=== PATIENT | female | born 1925 | race Caucasian/White ===

== ENCOUNTER 2016-10-06 16:16 | Inpatient (IN) | payer OTHER, BC ==
[~2016-10-06] VITALS: Ht 165.1 cm; Wt 70.0 kg
[~2016-10-06 16:16] MED LIST: AMLO-110 PO; ASPEC81 PO; CRS20 PO; CZR50 PO; GLIM4TAB2 PO; METO50TA7 PO; MULTCHW4 PO; SITA100T3 PO; [UNRECOGNIZED DRUG - OTHER] PO
[2016-10-06] MEDS ORDERED: GLIM4TAB PO (16:36)
[2016-10-06] MEDS ORDERED: ANAS1TAB19 PO (16:36)
[2016-10-06] MEDS ORDERED: ATOR-24 PO (16:36)
[2016-10-06] MEDS ORDERED: AMLO-110 PO (16:36)
[2016-10-06] MEDS ORDERED: AMOX500C3 PO (16:36)
[2016-10-06] MEDS ORDERED: LOSA1TAB38 PO (16:36)
[2016-10-06] MEDS ORDERED: AZITTAB PO (16:36)
[2016-10-06] MEDS ORDERED: FURO-85 PO (16:36)
[2016-10-06] MEDS ORDERED: SODIUM CHLORIDE 0.9% 1000ML 1,000 ML IV STA (16:38)
[2016-10-06] MEDS ORDERED: SODIUM CHLORIDE 0.9% 1000ML 1,000 ML IV ONE (16:38)
[2016-10-06] MEDS ORDERED: CALC8.5C PO (16:38)
[2016-10-06] MEDS ORDERED: ASPI81TA28 PO (16:38)
--- NOTE | 2016-10-06 16:47 | EMERGENCY ROOM VISIT NOTE ---
History Report prepared by Elijah: Dayana Fitzgerald Under the Supervision of: Dr. Tyler Robertson M.D. First contact with patient: 16:28 Chief Complaint: HYPERGLYCEMIA Stated Complaint: DEHYDRATION-ELEVATED BLOOD SUGAR REFERRED DR PATEL History of Present Illness The patient is an 89 year old female who presents to the Emergency Room with complaints of hyperglycemia. She is accompanied by her ngfteryk-el-pbx. The patient was referred here to the ED by her primary care physician, Dr. Dominguez, for elevated blood sugar. She had seen him earlier today for her fever, and her BSG was found to be 500, so she was advised to come right over. She is a non- insulin dependent diabetic, and states she takes daily Januvia and Metformin. She denies missing any doses recently. The patient had a fever of 100.5 four days ago, and it was 99.5 when checked at home earlier today. She has been coughing, so she was started on a Z-pack by a local urgent care clinic, and states the cough seems to be improving. She also complains of abdominal pain and diarrhea, but denies any chest pain, shortness of breath, numbness in her extremities or difficulty urinating. She does admit to some increased weakness in her legs, but notes this has become more and more regular for her. Her gvfxzgke-kf-xko denies any previous cardiac history, but notes the patient has a history of hypertension. 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 A total of 10 systems reviewed and were otherwise negative. Past Medical & Surgical Medical Problems: (1) GERMAINE (acute kidney injury) (2) Breast cancer (3) Cataract (4) CKD (chronic kidney disease), stage III (5) DM type 2 (diabetes mellitus, type 2) (6) Dyslipidemia (7) History of bladder cancer (8) History of melanoma (9) Hyperglycemia (10) Hypertension (11) S/p excision of bladder tumor Surgical Problems: (1) H/O cystoscopy (2) H/O hernia repair (3) H/O lymph node biopsy (4) H/O partial mastectomy (5) S/P lumbar laminectomy (6) S/P BROOKLYNN-BSO (7) Status post Mohs surgery Old medical records were reviewed. Nurse's notes were reviewed and I agree with. Social History Smoking Status: Never Smoker Smokeless Tobacco Use: No Alcohol Use: none Drug Use: none Marital Status: Housing Status: lives alone Occupation Status: retired Current/Historical Medications Scheduled Amlodipine (Norvasc), 5 MG PO DAILY Amoxicillin (Amoxil), 500 MG PO UD Aspirin (Aspirin Ec), 81 MG PO DAILY Atorvastatin (Lipitor), 40 MG PO HS Azithromycin (Zithromax Z-Horacio), 1 PKT PO UD Calcium W/ Vitamins D & K (Viactiv), TAB PO DAILY Furosemide (Lasix), 20 MG PO DAILY Glimepiride (Amaryl), 4 MG PO DAILY Losartan Potassium (Cozaar), 100 MG PO HS Metoprolol Succ (Toprol Xl) (Toprol-Xl), 100 MG PO DAILY Sitagliptin Phosphate (Januvia), 100 MG PO DAILY [Monavie liquid], 2 OZ PO DAILY Allergies Coded Allergies: Pioglitazone (Unverified Allergy, Intermediate, HIVES, 05/27/10) Metformin (Verified Adverse Reaction, Intermediate, DIARRHEA, 11/22/09) Physical Exam Vital Signs Date Time Temp Pulse Resp B/P Pulse Ox O2 Delivery O2 Flow Rate FiO2 10/06/16 18:45 60 18 181/76 95 Room Air 10/06/16 17:46 64 10/06/16 17:27 82 18 188/75 95 Room Air 10/06/16 16:19 36.7 59 18 118/70 95 Room Air Physical Exam General: Uzj-tej-voogpkfbw older female, appears younger than stated age, in no acute distress. Well developed, well nourished, breathing comfortably on room air. Normal speech HEENT: Normal cephalic atraumatic. Pupils are equal round and reactive to light. Extraocular movements are intact. Oropharynx is pink with moist mucous membranes. No swelling of the mouth lips or tongue. Neck: Supple with a midline trachea. No meningeal signs or stiffness, no JVD or bruits. No Stridor. Chest: Clear to auscultation bilaterally. No wheezes or rhonchi. No increased work of breathing. Heart: regular rate and rhythm. Abdomen: Soft nontender, nondistended without rebound guarding or rigidity. Extremities: No cyanosis clubbing or edema. No calf tenderness or assymetry Spine/Back. Non tender to palpation. No CVA tenderness Skin: Good turgor without rashes. Neurologic exam: Cranial nerves two through 12 are intact. Motor and sensation are intact and symmetrical throughout. Medical Decision & Procedures ER Provider Diagnostic Interpretation: This X-Ray was reviewed and interpreted by myself and the radiologist. CHEST ONE VIEW PORTABLE IMPRESSION: Technically limited study with incomplete visualization left lung base. The upper lung zones are clear. Electronically signed by: Satinder Strauss M.D. 10/06/2016 4:57 PM This X-Ray showed no acute infiltrate, failure or pneumothorax. There is noted cardiomegaly, per my read. This CT scan was reviewed and interpreted by the radiologist and reviewed by myself. CT ABDOMEN & PELVIS: Unremarkable appendix. Colonic diverticula without diverticulitis. Small hiatal hernia. 11 mm low attenuation lesion in the pancreatic tail area. Hysterectomy Pelvic prolapse. Surgical and degenerative changes in the spine. Step offs also present. Minimal bronchiectasis and peribronchial thickening Cardiomegaly. Cavum deformity of the chest wall. Radiologist: Mariana Paz M.D. Laboratory Results 10/06/16 17:20 Red Blood Count 4.02, Mean Corpuscular Volume 90.0, Mean Corpuscular Hemoglobin 32.3, Mean Corpuscular Hemoglobin Concent 35.9, Mean Platelet Volume 11.4, Neutrophils (%) (Auto) 77.6, Lymphocytes (%) (Auto) 13.0, Monocytes (%) (Auto) 9.0, Eosinophils (%) (Auto) 0.1, Basophils (%) (Auto) 0.1, Neutrophils # (Auto) 6.56, Lymphocytes # (Auto) 1.10, Monocytes # (Auto) 0.76, Eosinophils # (Auto) 0.01, Basophils # (Auto) 0.01 10/06/16 17:20 Test 10/06/16 17:09 10/06/16 17:20 10/06/16 17:40 Bedside Lactic Acid Venous 1.47 mmol/L (0.90-1.70) White Blood Count 8.46 K/uL (4.8-10.8) Red Blood Count 4.02 M/uL (4.2-5.4) Hemoglobin 13.0 g/dL (12.0-16.0) Hematocrit 36.2 % (37-47) Mean Corpuscular Volume 90.0 fL (80-100) Mean Corpuscular Hemoglobin 32.3 pg (25-34) Mean Corpuscular Hemoglobin Concent 35.9 g/dl (32-36) Platelet Count 162 K/uL (130-400) Mean Platelet Volume 11.4 fL (7.4-10.4) Neutrophils (%) (Auto) 77.6 % Lymphocytes (%) (Auto) 13.0 % Monocytes (%) (Auto) 9.0 % Eosinophils (%) (Auto) 0.1 % Basophils (%) (Auto) 0.1 % Neutrophils # (Auto) 6.56 K/uL (1.4-6.5) Lymphocytes # (Auto) 1.10 K/uL (1.2-3.4) Monocytes # (Auto) 0.76 K/uL (0.11-0.59) Eosinophils # (Auto) 0.01 K/uL (0-0.5) Basophils # (Auto) 0.01 K/uL (0-0.2) RDW Standard Deviation 38.2 fL (36.4-46.3) RDW Coefficient of Variation 11.7 % (11.5-14.5) Immature Granulocyte % (Auto) 0.2 % Immature Granulocyte # (Auto) 0.02 K/uL (0.00-0.02) Activated Partial Thromboplast Time 25.7 SECONDS (21.0-31.0) Partial Thromboplastin Ratio 1.0 Anion Gap 12.0 mmol/L (3-11) Est Creatinine Clear Calc Drug Dose 20.6 ml/min Estimated GFR () 30.7 Estimated GFR (Non- 26.5 BUN/Creatinine Ratio 18.8 (10-20) Calcium Level 8.9 mg/dl (8.5-10.1) Total Bilirubin 0.5 mg/dl (0.2-1) Direct Bilirubin 0.1 mg/dl (0-0.2) Aspartate Amino Transf (AST/SGOT) 104 U/L (15-37) Alanine Aminotransferase (ALT/SGPT) 45 U/L (12-78) Alkaline Phosphatase 93 U/L (45-117) Total Protein 7.0 gm/dl (6.4-8.2) Albumin 3.4 gm/dl (3.4-5.0) Lipase 86 U/L (73-393) Beta-Hydroxybutyric Acid 8.22 mg/dL (0.2-2.81) Urine Color YELLOW Urine Appearance CLEAR (CLEAR) Urine pH 5.0 (4.5-7.5) Urine Specific Fl[place] 1.018 (1.000-1.030) Urine Protein 2+ (NEG) Urine Glucose (UA) 3+ (NEG) Urine Ketones NEG (NEG) Urine Occult Blood 3+ (NEG) Urine Nitrite NEG (NEG) Urine Bilirubin NEG (NEG) Urine Urobilinogen NEG (NEG) Urine Leukocyte Esterase NEG (NEG) Urine WBC (Auto) 1-5 /hpf (0-5) Urine RBC (Auto) 0-4 /hpf (0-4) Urine Hyaline Casts (Auto) 1-5 /lpf (0-5) Urine Epithelial Cells (Auto) >30 /lpf (0-5) Urine Bacteria (Auto) NEG (NEG) Urine Renal Epithelial Cells 5-10 /lpf (0-5) Laboratory studies as stated above per my review. Medications Administered Medications (Trade) Dose Ordered Sig/Mustapha Route Start Time Stop Time Status Last Admin Dose Admin Sodium Chloride 1,000 ml @ 999 mls/hr Q1H1M STAT IV 10/06/16 16:38 10/06/16 17:38 DC 10/06/16 17:38 999 MLS/HR Sodium Chloride (Nss 1000ml) 1,000 ml @ 150 mls/hr Q6H40M ONCE IV 10/06/16 16:38 10/06/16 20:55 DC 10/06/16 17:39 150 MLS/HR ECG Indication: other (hyperglycemia) Rate (beats per minute): 57 Rhythm: sinus bradycardia Findings: 1st degree AV block, RBBB, other (LVH, poor baseline secondary to motion) Change: no significant change (No significant change when compared to January 20, 2005) ED Course 1630: Past medical records reviewed. The patient was evaluated in room A11, and a complete history and physical examination were performed. 1638: NSS 1000 ml @ 999 mls/hr IV, NSS 1000 ml @ 150 mls/hr IV. 1812: I discussed the patients case with Taylor Mcfadden PA-C, [facility] The patient will be further evaluated. 1817: I reevaluated the patient. She is resting comfortably. I discussed my plan for her to remain in the hospital, and she and her gyglhood-rv-esr verbalized complete understanding and agreement. Medical Decision Differential Diagnoses: Hyperglycemia, DKA, sepsis, pneumonia, UTI, intra- abdominal process This patient comes in as described above. She was placed in room A 11. She was sent over by Dr. Dominguez's office after having a blood sugar of 500. She's not been feeling well for several days she feels weak she's had some intermittent abdominal pain and cough she was started azithromycin yesterday. IV access established was gently hydrated with IV normal saline bolus and hourly rate of IV normal saline as outlined above. She multiple blood testing obtained here as well as an EKG and chest x-ray and noncontrast CT of her abdomen. She was reassessed frequently. She remained stable and asymptomatic here her EKG does not show any definite acute ischemic changes have her troponin is elevated at just over 1.0. It's possible she could've had a acute cardiac event over the weekend. Also she does have some renal insufficiency with a creatinine 1.7 and this could be raising troponin somewhat as well. She was gently hydrated with normal saline this is can help bring her blood sugar down she has no evidence of DKA. She's hadnothing to suggest pneumonia. The CAT scan of her abdomen is unremarkable. she has no acute findings. I do think she needs to be admitted for further treatment and evaluation of her hyperglycemia, elevated troponin, and dehydration/renal failure. I have consulted the [facility] Hospitalist. They saw her in the ER and will admit her for these measures. Consults Time Called: 1809 Consulting Physician: Taylor Mcfadden PA-C, [facility] Returned Call: 1812 I discussed the patients case with Taylor Mcfadden PA-C, [facility] The patient will be further evaluated. Impression Primary Impression: Elevated troponin Additional Impressions: Hyperglycemia, Dehydration Scribe Attestation The scribe's documentation has been prepared under my direction and personally reviewed by me in its entirety. I confirm that the note above accurately reflects all work, treatment, procedures, and medical decision making performed by me. Departure Information Dispostion Being Evaluated By Hospitalist Referrals Adam Dominguez D.O. (PCP) Patient Instructions A Signature Page, My [facility]
--- NOTE | 2016-10-06 16:59 | DIAGNOSTIC IMAGING REPORT ---
CHEST ONE VIEW PORTABLE CLINICAL HISTORY: Atypical chest pain dehydration COMPARISON STUDY: No previous studies for comparison. FINDINGS: The left lung base is not included on the study. There is elevation right hemidiaphragm. The heart is borderline enlarged. There is no failure. There is no focal pulmonary consolidation.[ IMPRESSION: Technically limited study with incomplete visualization left lung base. The upper lung zones are clear. Electronically signed by: Satinder Strauss M.D. 10/06/2016 4:57 PM
[2016-10-06 17:36] LABS: BASO % 0.1 %; BASO ABS # 0.01 K/uL (0-0.2); COMPLETE YES; EOS % 0.1 %; HEMATOCRIT 36.2 % (37-47); IG% 0.2 %; MEAN CORPUSCULAR HEMOGLOBIN 32.3 pg (25-34); MEAN CORPUSCULAR HGB CONC 35.9 g/dl (32-36); MEAN PLATELET VOLUME 11.4 fL (7.4-10.4); NEUT % 77.6 %; PLATELET COUNT 162 K/uL (130-400); RED BLOOD COUNT 4.02 M/uL (4.2-5.4); WHITE BLOOD COUNT 8.46 K/uL (4.8-10.8)
[2016-10-06 18:00] LABS: BUN/CREATININE RATIO 18.8 (10-20); CALCIUM 8.9 mg/dl (8.5-10.1); CREATININE 1.7 mg/dl (0.60-1.20); POTASSIUM 3.3 mmol/L (3.5-5.1)
[2016-10-06 18:15] LABS: BETA-HYDROXYBUTYRATE 8.22 mg/dL (0.2-2.81)
[2016-10-06 18:26] LABS: URINE APPEARANCE CLEAR (CLEAR); URINE BILIRUBIN NEG (NEG); URINE COLOR YELLOW; URINE EPITHELIAL CELL AUTO >30 /lpf (0-5); URINE NITRITE NEG (NEG); URINE SPECIFIC GRAVITY 1.018 (1.000-1.030); UROBILINOGEN NEG (NEG)
[2016-10-06 18:38] LABS: MANUAL MICROSCOPIC REQUIRED? NO; REVIEW REQ? YES
--- NOTE | 2016-10-06 18:38 | DIAGNOSTIC IMAGING REPORT ---
CT OF THE ABDOMEN AND PELVIS WITHOUT CONTRAST, STONE PROTOCOL CLINICAL HISTORY: Lower abdominal pain, fever and dehydration. COMPARISON STUDY: Renal ultrasound February 09, 2016. TECHNIQUE: Helical axial images of the abdomen and pelvis were obtained without IV or oral contrast according to renal stone protocol. FINDINGS: Pectus excavatum deformity is noted. There is moderate cardiomegaly. No pneumatosis, free air or portal venous gas is present. Unenhanced images of liver, spleen, adrenal glands and pancreas are unremarkable with exception of a 1.5 cm cystic lesion within the pancreatic tail. There is no hydronephrosis. No renal, ureteral or bladder calculi are identified. There is no evidence for a bowel obstruction. There is mild wall thickening of the rectum which could be due to underdistention. There is extensive left colon diverticulosis without evidence for acute diverticulitis. The appendix is normal. There is no adenopathy. Postsurgical findings within the lumbar spine are noted. There is grade II anterolisthesis of L4 and L5. 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 IMPRESSION: 1. No urinary calculi or hydronephrosis. 2. Extensive left colon diverticulosis without evidence for acute diverticulitis. 3. Mild rectal wall thickening, a nonspecific finding which could be due to underdistention. 4. 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 No aneurysm. 5. 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 Electronically signed by: Mark Olmos M.D. 10/06/2016 6:37 PM
[2016-10-06] MEDS ORDERED: INSULIN ASPART 100 UNITS/ML 3 ML PEN SC ONE (19:00)
--- NOTE | 2016-10-06 19:02 | Progress Note ---
Progress Note Patient was seen and evaluated with XIOMARA Mcfadden. Patient came in from Dr Fowler office for hyperglycemia. Has been having cough , abdominal pain, flu like symptoms for past few days which are improving. On exam, AAOX2, hard of hearing, not in distress, Lungs- decreased, no wheezing , rhonchi, Heart- S1, S2 normal, Abdomen-soft, non tender, non distended, bs present, neurological exam- No focal deficits. ASSESSMENT/PLAN: 1. GERMAINE- Likely secondary to dehydration with inadequate PO intake/recent viral illness -IV fluids 2. Viral illness- recovering. Was on z pack- complete course IV fluids 3. Hypokalemia- Replace K Agree with assessment/plan of XIOMARA Mcfadden.
[2016-10-06] MEDS: POTASSIUM CHLORIDE 10 MEQ TABCR PO ONE ×2 (19:15→19:56)
[2016-10-06] MEDS ORDERED: ONDANSETRON INJ 2 MG/ML 2 ML VIAL IV PRN (19:15)
[2016-10-06] MEDS ORDERED: ACETAMINOPHEN 325 MG TAB PO PRN (19:15)
[2016-10-06] MEDS ORDERED: DEXTROSE 50% 50 ML SYR IV PRN (19:30)
[2016-10-06] MEDS ORDERED: GLUCAGON FOR INJ 1 MG VIAL SQ PRN (19:30)
[2016-10-06] MEDS ORDERED: GLUCOSE 40% GEL 15 GM TUBE PO PRN (19:30)
[2016-10-06] MEDS ORDERED: GLUCOSE 10 TABS/TUBE PO PRN (19:30)
[2016-10-06] MEDS ORDERED: NovoLOG PER UNIT CHARGE SC ONE (19:45)
[2016-10-06 19:47] LABS: CKMB/CK RATIO 2.7 (0-3.0)
[2016-10-06] MEDS: SODIUM CHLORIDE 0.9% 1000ML 1,000 ML IV SCH (20:26)
[2016-10-06 20:51] VITALS: BP 185/73; PULSE 64; TEMP 36.7; O2SAT 92; BMI 22.3
[2016-10-06] MEDS: POTASSIUM CHLR 10 MEQ / WTR 10 MEQ in PREMIXED WATER 100 ML IV SCH ×2 (21:35→22:55)
[2016-10-06] MEDS: ATORVASTATIN 40 MG TAB PO SCH (22:03)
[2016-10-06] MEDS: INSULIN ASPART 100 UNITS/ML 3 ML PEN SC SCH (22:06)
[2016-10-06 22:28] LABS: INFLUENZA B PCR Neg for Influ B (NEG)
[2016-10-06 22:30] LABS: INFLUENZA A PCR POS for Influ A (NEG)
[2016-10-06] MEDS ORDERED: OSELTAMIVIR PHOSPHATE 75 MG CAP PO ONE (22:39)
[2016-10-06 23:20] VITALS: BP 152/65; PULSE 64; TEMP 37.1; O2SAT 94
[2016-10-06] MEDS ORDERED: OSELTAMIVIR PHOSPHATE SUSP 30 MG/5 ML UDP PO ONE (23:30)
--- NOTE | 2016-10-06 23:59 | History and Physical ---
History & Physical Date & Time of Service: Oct 06, 2016 at 19:37 Chief Complaint: Dehydration-Elevated Blood Sugar Referred Dr Guerra Primary Care Physician: Adam Dominguez D.O. History of Present Illness Source: patient, family (daughter in law at bedside), clinic records This is an 89 y/o female with PMH of DM type 2, HTN, HL, CKD stage III, history of breast CA, history of bladder CA, and other problems listed below who was sent to the ED from Dr. Dominguez's office for hyperglycemia. Pt's [id number] at bedside states 4 days ago she developed cold like symptoms with dry cough and temp of 100.5 treated with Tylenol. She had a few episodes of diarrhea over the weekend. Then yesterday she was having RLQ abdominal pain and nausea. Patient seen in urgent care yesterday and started on Azithromycin. Then today she was feeling generalized weakness, malaise, temp of 99.5, and was seen by Dr. Dominguez and BSG was high 400s in clinic so was sent to the ER. Outpatient labs today showed GERMAINE and hyponatremia. Patient states cough and abdominal pain are improving. Patient denies any weight loss, chills, ear ache, sore throat, headache, diffuse myalgias, chest pain, palpitations, shortness of breath, edema vomiting, dysuria, frequency, urgency. She does not check her blood sugar at home. Daughter in law notes patient was stressed past 1.5 weeks due to her son's health issues. No sick contact or recent hospitalization. No history of CAD. She had negative dobutamine stress echo in 2008. Past Medical/Surgical History Medical Problems: (1) Breast cancer Permanent Comment: Infiltrating ductal carcinoma the left breast, T1b N0M0 stage I Sabrina Septer positive, progesterone receptor positive, HER-2/george negative Status post lumpectomy and sentinel lymph node biopsy Status post radiation therapy completed 05/25/2003 Close observation and no hormonal therapy Abnormal right breast mammogram 12/31/2014 decision for 6 month follow-up Abnormal mammogram Status post ultrasound guided biopsy September 06 2015 revealing invasive ductal carcinoma grade 1 Estrogen receptor positive, progesterone receptor positive, HER-2/george negative Status post lumpectomy and sentinel lymph node biopsy 11/06/2015 [id number] M0 G1 Declined Oncotype DX and chemotherapy Status: Chronic (2) Cataract Status: Chronic (3) CKD (chronic kidney disease), stage III Status: Chronic (4) DM type 2 (diabetes mellitus, type 2) Status: Chronic (5) Dyslipidemia Status: Chronic (6) History of bladder cancer Status: Chronic (7) History of melanoma Status: Chronic (8) Hypertension Status: Chronic (9) S/p excision of bladder tumor Status: Chronic Surgical Problems: (1) H/O cystoscopy Status: Chronic (2) H/O hernia repair Status: Chronic (3) H/O lymph node biopsy Status: Chronic (4) H/O partial mastectomy Status: Chronic (5) S/P lumbar laminectomy Status: Chronic (6) S/P [place]-BSO Status: Chronic (7) Status post Mohs surgery Status: Chronic Family History Cardiac disorder FATHER MOTHER Social History Smoking Status: Never Smoker Alcohol Use: none Marital Status: Housing status: lives with family (functions indepdendently, lives with 2 sons in their 50s- one with intellectual disability and other with schizophrenia) Occupational Status: retired Immunizations History of Tetanus Vaccine?: A COUPLE YEARS AGO History of Pneumococcal: Unknown History of Hepatitis B Vaccine: No Multi-Drug Resistant Organisms History of MDRO: No Allergies Coded Allergies: Pioglitazone (Unverified Allergy, Intermediate, HIVES, 05/27/10) Metformin (Verified Adverse Reaction, Intermediate, DIARRHEA, 11/22/09) Home Medications Scheduled Amlodipine (Norvasc), 5 MG PO DAILY Amoxicillin (Amoxil), 500 MG PO UD Aspirin (Aspirin Ec), 81 MG PO DAILY Atorvastatin (Lipitor), 40 MG PO HS Azithromycin (Zithromax Z-Horacio), 1 PKT PO UD Calcium W/ Vitamins D & K (Viactiv), TAB PO DAILY Furosemide (Lasix), 20 MG PO DAILY Glimepiride (Amaryl), 4 MG PO DAILY Losartan Potassium (Cozaar), 100 MG PO HS Metoprolol Succ (Toprol Xl) (Toprol-Xl), 100 MG PO DAILY Sitagliptin Phosphate (Januvia), 100 MG PO DAILY [Monavie liquid], 2 OZ PO DAILY Review of Systems Ten systems reviewed with pertinent positives and negatives noted in HPI. Physical Exam Vital Signs Date Time Temp Pulse Resp B/P Pulse Ox O2 Delivery O2 Flow Rate FiO2 10/06/16 18:45 60 18 181/76 95 Room Air 10/06/16 17:46 64 10/06/16 17:27 82 18 188/75 95 Room Air 10/06/16 16:19 36.7 59 18 118/70 95 Room Air General Appearance: WD/WN, no apparent distress, + pertinent finding (alert elderly female, daughter in law at bedside) Head: normocephalic, atraumatic Eyes: normal inspection, PERRL, EOMI, sclerae normal ENT: normal ENT inspection, pharynx normal, + pertinent finding (hard of hearing. bilateral canals partially occluded by cerumen. TMS's appear normal on limited visualization.) Neck: supple, trachea midline Respiratory/Chest: lungs clear, normal breath sounds, no respiratory distress Cardiovascular: regular rate, rhythm, no murmur Abdomen/GI: normal bowel sounds, non tender, soft Extremities/Musculoskelatal: normal inspection, no calf tenderness, normal capillary refill, no pedal edema Neurologic/Psych: alert, normal mood/affect, oriented x 3, + pertinent finding (grossly nonfocal- no facial droop, no dysarthria, moves all extremities) Skin: normal color, warm/dry Diagnostics Laboratory Results Results Past 24 Hours Test 10/06/16 17:09 10/06/16 17:20 10/06/16 17:40 10/06/16 18:43 Range/Units Bedside Lactic Acid Venous 1.47 0.90-1.70 mmol/L White Blood Count 8.46 4.8-10.8 K/uL Red Blood Count 4.02 4.2-5.4 M/uL Hemoglobin 13.0 12.0-16.0 g/dL Hematocrit 36.2 37-47 % Mean Corpuscular Volume 90.0 80-100 fL Mean Corpuscular Hemoglobin 32.3 25-34 pg Mean Corpuscular Hemoglobin Concent 35.9 32-36 g/dl Platelet Count 162 130-400 K/uL Mean Platelet Volume 11.4 7.4-10.4 fL Neutrophils (%) (Auto) 77.6 % Lymphocytes (%) (Auto) 13.0 % Monocytes (%) (Auto) 9.0 % Eosinophils (%) (Auto) 0.1 % Basophils (%) (Auto) 0.1 % Neutrophils # (Auto) 6.56 1.4-6.5 K/uL Lymphocytes # (Auto) 1.10 1.2-3.4 K/uL Monocytes # (Auto) 0.76 0.11-0.59 K/uL Eosinophils # (Auto) 0.01 0-0.5 K/uL Basophils # (Auto) 0.01 0-0.2 K/uL RDW Standard Deviation 38.2 36.4-46.3 fL RDW Coefficient of Variation 11.7 11.5-14.5 % Immature Granulocyte % (Auto) 0.2 % Immature Granulocyte # (Auto) 0.02 0.00-0.02 K/uL Sodium Level 132 136-145 mmol/L Potassium Level 3.3 3.5-5.1 mmol/L Chloride Level 93 98-107 mmol/L Carbon Dioxide Level 27 21-32 mmol/L Anion Gap 12.0 3-11 mmol/L Blood Urea Nitrogen 32 7-18 mg/dl Creatinine 1.70 0.60-1.20 mg/dl Est Creatinine Clear Calc Drug Dose 20.6 ml/min Estimated GFR () 30.7 Estimated GFR (Non- 26.5 BUN/Creatinine Ratio 18.8 10-20 Random Glucose 450 70-99 mg/dl Calcium Level 8.9 8.5-10.1 mg/dl Total Bilirubin 0.5 0.2-1 mg/dl Direct Bilirubin 0.1 0-0.2 mg/dl Aspartate Amino Transf (AST/SGOT) 104 15-37 U/L Alanine Aminotransferase (ALT/SGPT) 45 12-78 U/L Alkaline Phosphatase 93 45-117 U/L Creatine Kinase MB Ratio 0-3.0 Total Protein 7.0 6.4-8.2 gm/dl Albumin 3.4 3.4-5.0 gm/dl Lipase 86 73-393 U/L Beta-Hydroxybutyric Acid 8.22 0.2-2.81 mg/dL Urine Color YELLOW Urine Appearance CLEAR CLEAR Urine pH 5.0 4.5-7.5 Urine Specific [place] 1.018 1.000-1.030 Urine Protein 2+ NEG Urine Glucose (UA) 3+ NEG Urine Ketones NEG NEG Urine Occult Blood 3+ NEG Urine Nitrite NEG NEG Urine Bilirubin NEG NEG Urine Urobilinogen NEG NEG Urine Leukocyte Esterase NEG NEG Urine WBC (Auto) 1-5 0-5 /hpf Urine RBC (Auto) 0-4 0-4 /hpf Urine Hyaline Casts (Auto) 1-5 0-5 /lpf Urine Epithelial Cells (Auto) >30 0-5 /lpf Urine Bacteria (Auto) NEG NEG Urine Renal Epithelial Cells 5-10 0-5 /lpf Bedside Glucose 422 70-90 mg/dl Test 10/06/16 19:02 Range/Units Creatine Kinase MB Ratio 0-3.0 Microbiology Results 10/06/16 Blood Culture, Received Pending 10/06/16 Blood Culture, Received Pending 10/06/16 Urine Culture, Received Pending Diagnostic Radiology CHEST ONE VIEW PORTABLE CLINICAL HISTORY: Atypical chest pain dehydration COMPARISON STUDY: No previous studies for comparison. FINDINGS: The left lung base is not included on the study. There is elevation right hemidiaphragm. The heart is borderline enlarged. There is no failure. There is no focal pulmonary consolidation.[ IMPRESSION: Technically limited study with incomplete visualization left lung base. The upper lung zones are clear. CT OF THE ABDOMEN AND PELVIS WITHOUT CONTRAST, STONE PROTOCOL CLINICAL HISTORY: Lower abdominal pain, fever and dehydration. COMPARISON STUDY: Renal ultrasound February 09, 2016. TECHNIQUE: Helical axial images of the abdomen and pelvis were obtained without IV or oral contrast according to renal stone protocol. FINDINGS: Pectus excavatum deformity is noted. There is moderate cardiomegaly. No pneumatosis, free air or portal venous gas is present. Unenhanced images of liver, spleen, adrenal glands and pancreas are unremarkable with exception of a 1.5 cm cystic lesion within the pancreatic tail. There is no hydronephrosis. No renal, ureteral or bladder calculi are identified. There is no evidence for a bowel obstruction. There is mild wall thickening of the rectum which could be due to underdistention. There is extensive left colon diverticulosis without evidence for acute diverticulitis. The appendix is normal. There is no adenopathy. Postsurgical findings within the lumbar spine are noted. There is grade II anterolisthesis of L4 and L5. 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 IMPRESSION: 1. No urinary calculi or hydronephrosis. 2. Extensive left colon diverticulosis without evidence for acute diverticulitis. 3. Mild rectal wall thickening, a nonspecific finding which could be due to underdistention. 4. 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 No aneurysm. 5. 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 EKG artifact present, sinus bradycardia with 1st degree AV block, rate 57, LAD, LVH with QRS widening, no ST elevation or depression; prior EKG from Sep 2015 in [facility] had 1st degree AV block, RBBB, LAFB, LVH Impression Assessment and Plan HYPERGLYCEMIA Underlying DM type 2 on oral meds; uncontrolled on last A1c in 07/2016 (10.0) Sent from Dr. Dominguez's office for elevated BSG to 400s; remains in 400s in ER Possibly elevated from stress of viral illness Not in DKA Hold oral anti-diabetic meds Novolog 12 units now Insulin sliding scale Check A1c in am GERMAINE Cr is 1.5 from baseline 0.9 Likely due to dehydration from recent viral illness Hold Losartan and furosemide IV fluids Monitor renal function VIRAL ILLNESS Symptoms are resolving CXR- no infiltrate noted Check influenza PCR On Azithromycin started as outpatient- complete the course HYPOKALEMIA Likely from recent diarrhea Replace and monitor MILD HYPONATREMIA Sodium 130 as outpatient today -> 132 in ER IV NSS for slow correction Recheck PRP in am ELEVATED TROPONIN POC trop elevated to 1.05 in ER- patient and daughter in law informed; added serum trop- 1.18 No chest pain; no hx of CAD; neg stress echo in 2008 EKG- no ischemic findings Monitor in telemetry Trend serial cardiac enzymes Check echo MASS OF PANCREATIC TAIL Incidental finding on CT Dr. Schmid to discuss with patient in am Plan for outpatient workup HTN Continue amlodipine and metoprolol Losartan and furosemide on hold for GERMAINE HL Continue statin DVT PROPHYLAXIS Heparin SQ CODE STATUS Full code per my discussion with the patient Patient seen in collaboration with Dr. Irma Schmid. Please see her addendum. VTE Prophylaxis VTE Risk Assessment Done? Y/N: Yes Risk Level: High
[2016-10-07 00:19] LABS: CKMB/CK RATIO 2.4 (0-3.0)
[2016-10-07 00:35] VITALS: BP 147/63; PULSE 63; TEMP 37.2; O2SAT 93
[2016-10-07 03:51] LABS: PROTHROMBIN TIME (PATIENT) 10.5 SECONDS (9.0-12.0)
[2016-10-07 04:00] VITALS: BP 139/83; PULSE 65; TEMP 36.7; O2SAT 98
[2016-10-07 06:10] LABS: HEMATOCRIT 33.2 % (37-47); MEAN CORPUSCULAR HEMOGLOBIN 32.1 pg (25-34); MEAN CORPUSCULAR HGB CONC 35.2 g/dl (32-36); MEAN PLATELET VOLUME 11.5 fL (7.4-10.4); PLATELET COUNT 150 K/uL (130-400); RED BLOOD COUNT 3.65 M/uL (4.2-5.4); WHITE BLOOD COUNT 11.46 K/uL (4.8-10.8)
[2016-10-07 06:39] LABS: BUN/CREATININE RATIO 19.3 (10-20); CALCIUM 7.9 mg/dl (8.5-10.1); CREATININE 1.5 mg/dl (0.60-1.20); MAGNESIUM 1.5 mg/dl (1.8-2.4); POTASSIUM 3.5 mmol/L (3.5-5.1)
[2016-10-07 08:14] VITALS: BP 143/67; PULSE 61; TEMP 36.6; O2SAT 95
--- NOTE | 2016-10-07 08:43 | Clinical Documentation Query ---
DORA Lamb : CLINICAL DOCUMENTATION QUERY Patient is an 89 year old female admitted with hyperglycemia and GERMAINE in the setting of viral illness. Influenza PCR positive for Influenza A. Patient is being treated with Oseltamivir. Please include virus specificity in subsequent documentation as this directly affects DRG assignment. In your clinical opinion is this patient being managed for: (+ ) Influenza A ( ) Other explanation of clinical findings (Please Explain) ( ) Unable to determine (Please Define) ( ) Need to Discuss ( ) Not Agree The medical record reflects the following clinical findings, treatment, and risk factors. Clinical Indicators: Positive influenza PCR for subtype A Treatment: Tamiflu, IVF, serial labs, supportive care Risk Factors: Seasonal influenza Please clarify and document your clinical opinion in the progress notes and discharge summary. Terms such as "probable", "suspected", "likely", "questionable", "possible", or "still to be ruled out" are acceptable. IF IN AGREEMENT, YOU MUST DOCUMENT ABOVE DIAGNOSTIC STATEMENT IN DAILY PROGRESS NOTES AND DISCHARGE SUMMARY. This document is not part of the patient's record. Thank You, Tyler Seals, RN [phone]
[2016-10-07] MEDS ORDERED: OSELTAMIVIR PHOSPHATE 75 MG CAP PO SCH (09:00)
[2016-10-07] MEDS ORDERED: [UNRECOGNIZED DRUG - OTHER] PO SCH (09:00)
[2016-10-07] MEDS: MAGNESIUM SULFATE 1GM / D5W 1 GM in PREMIXED IN D5W 100 ML IV SCH ×2 (09:09→10:19)
[2016-10-07] MEDS: AZITHROMYCIN 250 MG TAB PO SCH (09:20)
[2016-10-07] MEDS: ASPIRIN 81 MG ECTAB PO SCH (09:20)
[2016-10-07] MEDS: AMLODIPINE BESYLATE 5 MG TAB PO SCH (09:20)
[2016-10-07] MEDS: METOPROLOL SUCC 50MG EXT REL TAB PO SCH (09:20)
[2016-10-07] MEDS: INSULIN ASPART 100 UNITS/ML 3 ML PEN SC SCH ×4 (09:21→21:01)
[2016-10-07] MEDS: HEPARIN SOD 5000 UNIT/0.5 ML CARP SQ SCH ×2 (09:46→21:02)
[2016-10-07 09:57] LABS: ESTIMATED AVERAGE GLUCOSE 318 mg/dl; HA1C FLAG Normal (Normal)
[2016-10-07] MEDS: SODIUM CHLORIDE 0.9% 1000ML 1,000 ML IV SCH (11:22)
--- NOTE | 2016-10-07 11:41 | Progress Note ---
Internal Med Progress Note Date of Service: Oct 07, 2016. Provider Documentation: SUBJECTIVE: Patient is feeling marginally better today. Cough has improved. No chest pain, SOB, nausea, vomiting, abdominal pain, di arrhea, fever, chills Not on oxygen OBJECTIVE: Vital Signs-as noted below Exam: General-AAOX2, no distress Eyes-No icterus Neck-Supple, No JVD Lungs-AEBE decreased, no wheezing, rhonchi Heart-S1, S2 normal, Abdomen-Soft, non tender, non distended, BS present Extremities-No edema Neuro-No focal deficits Lab data as noted below. ASSESSMENT & PLAN: DM-2 UNCONTROLLED: Underlying DM type 2 on oral meds; uncontrolled on last A1c in 07/2016 (10.0) Sent from Dr. Dominguez's office for elevated BSG to 400s; remains in 400s in ER Possibly elevated secondary to viral illness/Influenza -Hold diabetic medications. Added Insulin Lantus 10 mg today -ISS -[id number] GERMAINE- Improving Cr is 1.70 from baseline 0.9 Likely due to dehydration from recent viral illness -Hold Losartan and furosemide -IV fluids- decrease rate -Monitor renal function INFLUENZA A Symptoms are resolving -CXR- no infiltrate noted -On Azithromycin started as outpatient- complete the course HYPOKALEMIA/HYPOMAGNESEMIA Likely from recent diarrhea -Resolved -Monitor ELEVATED TROPONIN Likely demand ischemia in setting of Influenza A No chest pain/cardiac symptoms; no hx of CAD; neg stress echo in 2008 EKG- no ischemic findings -Troponin- 1.180--> 1.560-->1.420 -Echo ordered to look for new wall motion abnormalities ABNORMAL CT ABD/PELVIS Incidental finding on CT - 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 Will discuss results with Daughter in law HTN Continue amlodipine and metoprolol -Losartan and furosemide on hold for GERMAINE HYPERLIPIDEMIA -Continue statin DVT PROPHYLAXIS -Heparin SQ CODE STATUS -Full code per my discussion with the patient DISPOSITION PT./OT ordered To be determined Vital Signs: Date Time Temp Pulse Resp B/P Pulse Ox O2 Delivery O2 Flow Rate FiO2 10/07/16 08:14 36.6 61 16 143/67 95 Nasal Cannula 2.0 10/07/16 08:00 Room Air 10/07/16 04:00 36.7 65 18 139/83 98 10/07/16 04:00 Nasal Cannula 2.0 10/07/16 00:35 37.2 63 20 147/63 93 Room Air 10/07/16 00:01 Room Air 10/06/16 23:20 37.1 64 19 152/65 94 Room Air 10/06/16 20:51 36.7 64 20 185/73 92 Room Air 10/06/16 20:06 64 18 182/79 96 10/06/16 18:45 60 18 181/76 95 Room Air 10/06/16 17:46 64 10/06/16 17:27 82 18 188/75 95 Room Air 10/06/16 16:19 36.7 59 18 118/70 95 Room Air Lab Results: Results Past 24 Hours Test 10/06/16 17:09 10/06/16 17:20 10/06/16 17:40 10/06/16 18:43 Range/Units Bedside Lactic Acid Venous 1.47 0.90-1.70 mmol/L White Blood Count 8.46 4.8-10.8 K/uL Red Blood Count 4.02 4.2-5.4 M/uL Hemoglobin 13.0 12.0-16.0 g/dL Hematocrit 36.2 37-47 % Mean Corpuscular Volume 90.0 80-100 fL Mean Corpuscular Hemoglobin 32.3 25-34 pg Mean Corpuscular Hemoglobin Concent 35.9 32-36 g/dl Platelet Count 162 130-400 K/uL Mean Platelet Volume 11.4 7.4-10.4 fL Neutrophils (%) (Auto) 77.6 % Lymphocytes (%) (Auto) 13.0 % Monocytes (%) (Auto) 9.0 % Eosinophils (%) (Auto) 0.1 % Basophils (%) (Auto) 0.1 % Neutrophils # (Auto) 6.56 1.4-6.5 K/uL Lymphocytes # (Auto) 1.10 1.2-3.4 K/uL Monocytes # (Auto) 0.76 0.11-0.59 K/uL Eosinophils # (Auto) 0.01 0-0.5 K/uL Basophils # (Auto) 0.01 0-0.2 K/uL RDW Standard Deviation 38.2 36.4-46.3 fL RDW Coefficient of Variation 11.7 11.5-14.5 % Immature Granulocyte % (Auto) 0.2 % Immature Granulocyte # (Auto) 0.02 0.00-0.02 K/uL Prothrombin Time 10.5 9.0-12.0 SECONDS Prothromb Time International Ratio 1.0 0.9-1.1 Activated Partial Thromboplast Time 25.7 21.0-31.0 SECONDS Partial Thromboplastin Ratio 1.0 Sodium Level 132 136-145 mmol/L Potassium Level 3.3 3.5-5.1 mmol/L Chloride Level 93 98-107 mmol/L Carbon Dioxide Level 27 21-32 mmol/L Anion Gap 12.0 3-11 mmol/L Blood Urea Nitrogen 32 7-18 mg/dl Creatinine 1.70 0.60-1.20 mg/dl Est Creatinine Clear Calc Drug Dose 20.6 ml/min Estimated GFR () 30.7 Estimated GFR (Non- 26.5 BUN/Creatinine Ratio 18.8 10-20 Random Glucose 450 70-99 mg/dl Calcium Level 8.9 8.5-10.1 mg/dl Total Bilirubin 0.5 0.2-1 mg/dl Direct Bilirubin 0.1 0-0.2 mg/dl Aspartate Amino Transf (AST/SGOT) 104 15-37 U/L Alanine Aminotransferase (ALT/SGPT) 45 12-78 U/L Alkaline Phosphatase 93 45-117 U/L Total Creatine Kinase 230 26-192 U/L Creatine Kinase MB 6.2 0.5-3.6 ng/ml Creatine Kinase MB Ratio 2.7 0-3.0 Troponin I 1.180 0-0.045 ng/ml Total Protein 7.0 6.4-8.2 gm/dl Albumin 3.4 3.4-5.0 gm/dl Lipase 86 73-393 U/L Beta-Hydroxybutyric Acid 8.22 0.2-2.81 mg/dL Urine Color YELLOW Urine Appearance CLEAR CLEAR Urine pH 5.0 4.5-7.5 Urine Specific [place] 1.018 1.000-1.030 Urine Protein 2+ NEG Urine Glucose (UA) 3+ NEG Urine Ketones NEG NEG Urine Occult Blood 3+ NEG Urine Nitrite NEG NEG Urine Bilirubin NEG NEG Urine Urobilinogen NEG NEG Urine Leukocyte Esterase NEG NEG Urine WBC (Auto) 1-5 0-5 /hpf Urine RBC (Auto) 0-4 0-4 /hpf Urine Hyaline Casts (Auto) 1-5 0-5 /lpf Urine Epithelial Cells (Auto) >30 0-5 /lpf Urine Bacteria (Auto) NEG NEG Urine Renal Epithelial Cells 5-10 0-5 /lpf Bedside Glucose 422 70-90 mg/dl Test 10/06/16 19:02 10/06/16 20:24 10/06/16 20:25 10/06/16 22:05 Range/Units Creatine Kinase MB Ratio 0-3.0 Bedside Glucose 375 174 70-90 mg/dl Influenza Type A (RT-PCR) POS for Influ A NEG Influenza Type B (RT-PCR) Neg for Influ B NEG Test 10/06/16 23:10 10/06/16 23:51 10/07/16 05:15 10/07/16 06:54 Range/Units Total Creatine Kinase 194 26-192 U/L Creatine Kinase MB 4.6 0.5-3.6 ng/ml Creatine Kinase MB Ratio 2.4 0-3.0 Troponin I 1.560 1.420 0-0.045 ng/ml White Blood Count 11.46 4.8-10.8 K/uL Red Blood Count 3.65 4.2-5.4 M/uL Hemoglobin 11.7 12.0-16.0 g/dL Hematocrit 33.2 37-47 % Mean Corpuscular Volume 91.0 80-100 fL Mean Corpuscular Hemoglobin 32.1 25-34 pg Mean Corpuscular Hemoglobin Concent 35.2 32-36 g/dl RDW Standard Deviation 39.6 36.4-46.3 fL RDW Coefficient of Variation 11.8 11.5-14.5 % Platelet Count 150 130-400 K/uL Mean Platelet Volume 11.5 7.4-10.4 fL Sodium Level 135 136-145 mmol/L Potassium Level 3.5 3.5-5.1 mmol/L Chloride Level 99 98-107 mmol/L Carbon Dioxide Level 25 21-32 mmol/L Anion Gap 11.0 3-11 mmol/L Blood Urea Nitrogen 29 7-18 mg/dl Creatinine 1.50 0.60-1.20 mg/dl Est Creatinine Clear Calc Drug Dose 23.3 ml/min Estimated GFR () 35.7 Estimated GFR (Non- 30.8 BUN/Creatinine Ratio 19.3 10-20 Random Glucose 237 70-99 mg/dl Estimated Average Glucose 318 mg/dl Hemoglobin A1c 12.7 4.5-5.6 % Calcium Level 7.9 8.5-10.1 mg/dl Magnesium Level 1.5 1.8-2.4 mg/dl Bedside Glucose 257 70-90 mg/dl Test 10/07/16 11:06 Range/Units Bedside Glucose 281 70-90 mg/dl Microbiology Results 10/06/16 Blood Culture, Received Pending 10/06/16 Blood Culture, Received Pending 10/06/16 Urine Culture, Received Pending
[2016-10-07] MEDS ORDERED: METOPROLOL TARTRATE 25 MG TAB PO ONE (12:00)
[2016-10-07 12:23] VITALS: BP 101/59; PULSE 126; TEMP 37.3; O2SAT 92
[2016-10-07 14:43] VITALS: BMI 22.3
[2016-10-07 15:44] VITALS: BP 153/67; PULSE 71; TEMP 36.6; O2SAT 92
--- NOTE | 2016-10-07 16:41 | ECHOCARDIOGRAM REPORT ---
*NOTICE TO RECEIVING REPUBLICAN AGENCY This information is strictly Confidential and protected under [place] law. [place] law prohibits you from making any further disclosure of this information unless further disclosure is expressly permitted by the written consent of the person to whom it pertains or is authorized by law. A general authorization for the release of medical or other information is not sufficient for this purpose. Hospital accepts no responsibility if the information is made available to any other person, INCLUDING THE PATIENT. Interpretation Summary * Name: NIKKO CARR Study Date: 10/07/2016 06:43 AM BP: 147/63 mmHg * Patient Location: C.2E\S\E205\S\1 HR: 63 * : 1925 (M/d/yyyy) Gender: Female Height: 65 in * Age: 89 yrs Ethnicity: [place] Weight: 134 lb * Ordering Physician: Taylor Mcfadden * Referring Physician: Adam Dominguez D.O. * Performed By: Faviola Rodriguez RDCS * * Reason For Study: Elevated Troponin, R/O new WMA * BSA: 1.7 m2 * The study was technically adequate. * -- Conclusions -- * Left ventricular systolic function is normal. * Ejection Fraction = 60-65%. * There is mild concentric left ventricular hypertrophy. * The left atrium is moderately dilated. * Aortic valve sclerosis mild, without significant aortic valvular stenosis. * Calcified mitral apparatus causing mitral stenosis. * There is mild mitral stenosis. Procedure Details * A complete two-dimensional transthoracic echocardiogram was performed (2D, M-mode, Doppler and color flow Doppler). Left Ventricle * The left ventricle is normal in size. * There is no thrombus. * There is mild concentric left ventricular hypertrophy. * Ejection Fraction = 60-65%. * Left ventricular systolic function is normal. * The left ventricular wall motion is normal. Right Ventricle * The right ventricle is normal size. * The right ventricular systolic function is normal as assessed by tricuspid annular plane systolic excursion (TAPSE) (normal >1.5 cm). Atria * The left atrium is moderately dilated. * Right atrial size is normal. * There is no evidence of atrial septal defect, but resolution does not allow assessment for a patent foramen ovale. Mitral Valve * There is moderate mitral annular calcification. * Calcified mitral apparatus causing mitral stenosis. * There is mild mitral stenosis. * Significant mitral regurgitation is absent. Tricuspid Valve * The tricuspid valve is normal. * There is no tricuspid stenosis. * Significant tricuspid regurgitation is absent. Aortic Valve * The aortic valve is trileaflet. * Aortic valve sclerosis mild, without significant aortic valvular stenosis. * Aortic stenosis is absent. * There is no significant aortic regurgitation. Pulmonic Valve * The pulmonary valve is not well seen, but the Doppler examination is normal without significant regurgitation or stenosis. Great Vessels * The aortic root is normal size. Pericardium/Pleural * There is no pericardial effusion. Great Vessels * Normal inferior vena cava diameter and respiratory variation suggests normal central venous pressure. Left Ventricular Diastolic Function * Grade I diastolic dysfunction, (abnormal relaxation pattern). MMode 2D Measurements and Calculations IVSd 10 cm IVSs 1.6 cm LVIDd 4.2 cm LVIDs 2.2 cm LVPWd 1.1 cm LVPWs 1.7 cm IVS/LVPW 0.87 FS 47.1 % EDV(Teich) 79.0 ml ESV(Teich) 16.7 ml EF(Teich) 78.8 % EDV(cubed) 74.6 ml ESV(cubed) 11.1 ml EF(cubed) 85.2 % % IVS thick 56.0 % % LVPW thick 46.4 % LV mass(C)d 151.6 grams LV mass(C)dI 90.8 grams/m\S\2 LV mass(C)s 126.6 grams LV mass(C)sI 75.9 grams/m\S\2 SV(Teich) 62.3 ml SI(Teich) 37.3 ml/m\S\2 SV(cubed) 63.6 ml SI(cubed) 38.1 ml/m\S\2 Ao root diam 2.7 cm Ao root area 5.7 cm\S\2 ACS 1.4 cm LA dimension 4.3 cm LA/Ao 1.6 LVOT diam 2.0 cm LVOT area 3.1 cm\S\2 LVAd ap4 20.2 cm\S\2 LVLd ap4 6.7 cm EDV(MOD-sp4) 52.6 ml EDV(sp4-el) 51.9 ml LVAs ap4 11.4 cm\S\2 LVLs ap4 5.6 cm ESV(MOD-sp4) 20.1 ml ESV(sp4-el) 19.8 ml EF(MOD-sp4) 61.9 % EF(sp4-el) 61.9 % LVAd ap2 19.4 cm\S\2 LVLd ap2 6.5 cm EDV(MOD-sp2) 51.7 ml EDV(sp2-el) 48.7 ml LVAs ap2 10.9 cm\S\2 LVLs ap2 5.0 cm ESV(MOD-sp2) 20.3 ml ESV(sp2-el) 20.2 ml EF(MOD-sp2) 60.6 % EF(sp2-el) 58.5 % LVLd %diff -1.68 % EDV(MOD-bp) 52.3 ml LVLs %diff -10.58 % ESV(MOD-bp) 21.0 ml EF(MOD-bp) 59.8 % SV(MOD-sp4) 32.6 ml SI(MOD-sp4) 19.5 ml/m\S\2 SV(MOD-sp2) 31.3 ml SI(MOD-sp2) 18.8 ml/m\S\2 SV(MOD-bp) 31.3 ml SI(MOD-bp) 18.7 ml/m\S\2 SV(sp4-el) 32.1 ml SI(sp4-el) 19.3 ml/m\S\2 SV(sp2-el) 28.5 ml SI(sp2-el) 17.1 ml/m\S\2 Doppler Measurements and Calculations MV E max yohana 173.4 cm/sec MV A max yohana 194.8 cm/sec MV E/A 0.89 MV V2 max 198.9 cm/sec MV max PG 15.8 mmHg MV V2 mean 116.2 cm/sec MV mean PG 6.0 mmHg MV V2 VTI 61.3 cm MV P1/2t max yohana 169.9 cm/sec MV P1/2t 126.1 msec MVA(P1/2t) 1.7 cm\S\2 MV dec slope 394.6 cm/sec\S\2 MV dec time 0.32 sec Ao V2 max 150.2 cm/sec Ao max PG 9.0 mmHg Ao max PG (full) 3.4 mmHg LAURA(V,A) 2.4 cm\S\2 LAURA(V,D) 2.4 cm\S\2 LV V1 max PG 5.7 mmHg LV V1 max 119.0 cm/sec PA V2 max 90.9 cm/sec PA max PG 3.3 mmHg PI max yohana 192.7 cm/sec PI max PG 14.9 mmHg PI dec slope 299.0 cm/sec\S\2 PI P1/2t 188.8 msec
[2016-10-07 20:30] VITALS: BP 147/90; PULSE 72; TEMP 38; O2SAT 91
[2016-10-07] MEDS ORDERED: INSULIN GLARGINE SOLOSTAR 100 UNITS/ML 3 ML PEN SC SCH (21:00)
[2016-10-07] MEDS: ATORVASTATIN 40 MG TAB PO SCH (21:09)
[2016-10-07] MEDS: OSELTAMIVIR PHOSPHATE SUSP 30 MG/5 ML UDP PO SCH (21:10)
[2016-10-08] VITALS (7 sets, daily range): BP systolic 130–160; BP diastolic 55–83; PULSE 67–125; TEMP 36.6–37.7; O2SAT 93–97; BMI 23.1
[2016-10-08 00:12] LABS: CKMB/CK RATIO 0.7 (0-3.0)
[2016-10-08] MEDS: SODIUM CHLORIDE 0.9% 1000ML 1,000 ML IV SCH (01:16)
[2016-10-08 06:04] LABS: HEMATOCRIT 32.2 % (37-47); MEAN CELL VOLUME 91.2 fL (80-100); MEAN CORPUSCULAR HEMOGLOBIN 31.7 pg (25-34); MEAN CORPUSCULAR HGB CONC 34.8 g/dl (32-36); MEAN PLATELET VOLUME 11.2 fL (7.4-10.4); PLATELET COUNT 156 K/uL (130-400); RED BLOOD COUNT 3.53 M/uL (4.2-5.4); WHITE BLOOD COUNT 16.02 K/uL (4.8-10.8)
[2016-10-08 06:30] LABS: BUN/CREATININE RATIO 17.2 (10-20); CALCIUM 7.4 mg/dl (8.5-10.1); CREATININE 1.5 mg/dl (0.60-1.20); POTASSIUM 3.3 mmol/L (3.5-5.1)
[2016-10-08 06:36] LABS: ALB/GLOB RATIO 0.7 (0.9-2); CKMB/CK RATIO 1.3 (0-3.0)
[2016-10-08] MEDS: METOPROLOL SUCC 50MG EXT REL TAB PO SCH (08:21)
[2016-10-08] MEDS: INSULIN ASPART 100 UNITS/ML 3 ML PEN SC SCH ×5 (08:21→23:47)
[2016-10-08] MEDS: AMLODIPINE BESYLATE 5 MG TAB PO SCH (08:22)
[2016-10-08] MEDS: AZITHROMYCIN 250 MG TAB PO SCH (08:22)
[2016-10-08] MEDS: ASPIRIN 81 MG ECTAB PO SCH (08:22)
[2016-10-08] MEDS: HEPARIN SOD 5000 UNIT/0.5 ML CARP SQ SCH ×3 (08:22→20:35)
[2016-10-08] MEDS ORDERED: POTASSIUM CHLORIDE 20 MEQ TABCR PO STA (09:48)
--- NOTE | 2016-10-08 09:54 | Progress Note ---
Internal Med Progress Note Date of Service: Oct 08, 2016. Provider Documentation: SUBJECTIVE: Patient is feeling marginally better today. Cough has improved. No chest pain, SOB, nausea, vomiting, abdominal pain, diarrhea, fever, chills Tele- Had paroxsymal a fib episodes yesterday and currently in A flutter On 2 L oxygen OBJECTIVE: Vital Signs-as noted below Exam: General-AAOX2, no distress Eyes-No icterus Neck-Supple, No JVD Lungs-AEBE decreased, no wheezing, rhonchi Heart-Tachycardia + Abdomen-Soft, non tender, non distended, BS present Extremities-No edema Neuro-No focal deficits Lab data as noted below. ASSESSMENT & PLAN: ATRIAL FLUTTER WITH RVR Patient went into A flutter for some time with HR 120s yesterday and spontaneously converted to sinus rhythm. Today again is in Atrial Flutter. No prior hx of A flutter, this is new onset. -Likely secondary to Influenza, GERMAINE, Hypokalemia -Metoprolol 12.5 mg PO BID to be started today -CHADS- 3. Will discuss with daughter in law about anticoagulation options, however, with advanced age and risk of falls, would be hesitant about starting it -Echocardiogram- EF 60-65%, Moderate LVH, Mild MS, TSH in AM DM-2 UNCONTROLLED: Underlying DM type 2 on oral meds; uncontrolled on last A1c in 07/2016 (10.0) Sent from Dr. Dominguez's office for elevated BSG to 400s; remains in 400s in ER Possibly elevated secondary to viral illness/Influenza -Hold diabetic medications. Added Insulin Lantus 10 mg ON 10/08/16 -ISS -[id number] -Diabetes education ordered GERMAINE- Improving slowly Pre renal/Renal from viral illness Cr is 1.70 from baseline 0.9 Likely due to dehydration from recent viral illness -Hold Losartan and furosemide -IV fluids - discontinue as patient -Monitor renal function INFLUENZA A Symptoms are resolving -CXR- no infiltrate noted -On Azithromycin started as outpatient- complete the course -On Tamiflu HYPOKALEMIA/HYPOMAGNESEMIA Likely from recent diarrhea -Replace -Check Mg, K with new onset A flutter -Monitor ELEVATED TROPONIN Likely demand ischemia in setting of Influenza A No chest pain/cardiac symptoms; no hx of CAD; neg stress echo in 2008 EKG- no ischemic findings -Troponin- 1.180--> 1.560-->1.420 -Echo ordered to look for new wall motion abnormalities-- no new wall motion abn noted, EF 60-65% ABNORMAL CT ABD/PELVIS Incidental finding on CT - 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 Will discuss results with Daughter in law HTN Continue amlodipine and metoprolol -Losartan and furosemide on hold for GERMAINE HYPERLIPIDEMIA -Continue statin DVT PROPHYLAXIS -Heparin SQ CODE STATUS -Full code per my discussion with the patient DISPOSITION PT./OT ordered To be determined Called daughter in law to update, but left a voice message. Vital Signs: Date Time Temp Pulse Resp B/P Pulse Ox O2 Delivery O2 Flow Rate FiO2 10/08/16 08:15 37.0 76 22 142/59 96 Nasal Cannula 2.0 10/08/16 08:00 Nasal Cannula 3.0 10/08/16 04:00 Nasal Cannula 3.0 10/08/16 04:00 36.7 85 20 130/68 94 Nasal Cannula 3.0 10/08/16 00:00 36.9 67 20 132/55 94 Nasal Cannula 3.0 10/07/16 23:59 Nasal Cannula 3.0 10/07/16 20:30 38.0 72 18 147/90 91 Nasal Cannula 2.0 10/07/16 20:00 Nasal Cannula 3.0 10/07/16 16:00 Room Air 10/07/16 15:44 36.6 71 20 153/67 92 Nasal Cannula 3.0 10/07/16 12:23 37.3 126 22 101/59 92 Room Air 10/07/16 12:00 Room Air Lab Results: Results Past 24 Hours Test 10/07/16 11:06 10/07/16 23:32 10/08/16 05:44 Range/Units Bedside Glucose 281 70-90 mg/dl Total Creatine Kinase 81 67 26-192 U/L Creatine Kinase MB 0.6 0.9 0.5-3.6 ng/ml Creatine Kinase MB Ratio 0.7 1.3 0-3.0 White Blood Count 16.02 4.8-10.8 K/uL Red Blood Count 3.53 4.2-5.4 M/uL Hemoglobin 11.2 12.0-16.0 g/dL Hematocrit 32.2 37-47 % Mean Corpuscular Volume 91.2 80-100 fL Mean Corpuscular Hemoglobin 31.7 25-34 pg Mean Corpuscular Hemoglobin Concent 34.8 32-36 g/dl RDW Standard Deviation 39.9 36.4-46.3 fL RDW Coefficient of Variation 12.0 11.5-14.5 % Platelet Count 156 130-400 K/uL Mean Platelet Volume 11.2 7.4-10.4 fL Sodium Level 134 136-145 mmol/L Potassium Level 3.3 3.5-5.1 mmol/L Chloride Level 101 98-107 mmol/L Carbon Dioxide Level 25 21-32 mmol/L Anion Gap 8.0 3-11 mmol/L Blood Urea Nitrogen 26 7-18 mg/dl Creatinine 1.50 0.60-1.20 mg/dl Est Creatinine Clear Calc Drug Dose 23.3 ml/min Estimated GFR () 35.7 Estimated GFR (Non- 30.8 BUN/Creatinine Ratio 17.2 10-20 Random Glucose 269 70-99 mg/dl Calcium Level 7.4 8.5-10.1 mg/dl Total Bilirubin 0.5 0.2-1 mg/dl Aspartate Amino Transf (AST/SGOT) 61 15-37 U/L Alanine Aminotransferase (ALT/SGPT) 29 12-78 U/L Alkaline Phosphatase 64 45-117 U/L Total Protein 5.2 6.4-8.2 gm/dl Albumin 2.2 3.4-5.0 gm/dl Globulin 3.0 2.5-4.0 gm/dl Albumin/Globulin Ratio 0.7 0.9-2
[2016-10-08] MEDS ORDERED: PHARMACY GLYCEMIC MGMT CONSULT SCH (12:55)
--- NOTE | 2016-10-08 15:41 | Pharmacy Progress Note ---
Glycemic Control Intl Consult Date of Service Oct 08, 2016. Scope Glycemic Pharmacist consulted by Dr Isidoro Schmid on 10/08/16 for glycemic control and to write orders per [facility] inpatient glycemic control protocol Objective Weight (Kilograms): 62.900 Accuchecks BSG (last 24hrs): Test 10/07/16 16:11 10/07/16 20:34 10/08/16 05:44 10/08/16 06:42 Bedside Glucose 241 mg/dl (70-90) 291 mg/dl (70-90) 271 mg/dl (70-90) Random Glucose 269 mg/dl (70-99) Test 10/08/16 11:11 Bedside Glucose 335 mg/dl (70-90) Laboratory Data (last 24hrs) Test 10/08/16 05:44 Anion Gap 8.0 mmol/L BUN/Creatinine Ratio 17.2 Blood Urea Nitrogen 26 mg/dl Creatinine 1.50 mg/dl Potassium Level 3.3 mmol/L Sodium Level 134 mmol/L White Blood Count 16.02 K/uL HbA1c Test 10/07/16 05:15 Hemoglobin A1c 12.7 % (4.5-5.6) H Recent Pertinent Medications Outpatient Anti-diabetic Regimen: * Amaryl 4 mg daily, Januvia 100 mg daily * A1c = 12.7 % 10/07/16 The patient is currently receiving: * Basal insulin: Lantus 10 units every hs * Correctional Insulin: Novolog Correction per scale ACHS Goal Range: Low 110 mg/dL - High 150 mg/dL Correction Factor: 70 mg/dL/unit * Prandial insulin: Per carb ratio of 1 unit per 24 grams CHO consumed * Oral Agents: none Risk Factors for Insulin Resistance: * Steroids: no * Infection: influenza A, on Tamiflu * Pressors: no * IVF: no * Recent Surgery: no * Diet: type 2 diabetic AHA * Mechanical Ventilation: no Assessment & Plan ASSESSMENT: * ADA & AACE recommend a goal blood sugar range 140-180 mg/dl for the majority of critically ill & non-critically ill patients. However, more stringent targets may be selected in individual cases. * 89 yo type 2 diabetic poorly controlled on oral meds alone. Will use weight- based insulin dosing for now and reassess in am. PLAN FOR INPATIENT GLYCEMIC CONTROL: * Increasing Lantus to 12 units SQ hs, give 1/2 dose (6 units) if BSG is less than 120 * Changing correction factor to 35 mg/dl/unit * Changing carb ratio to 1 unit per 15 grams CHO consumed * Changing goal range to Low 120 mg/dL - High 160 mg/dL, higher to decrease risk of hypoglycemia in elderly patient * Please note that the plan above was derived based on current level of insulin resistance and hospital stress. These recommendations are appropriate for inpatient admission only. Plan of care upon discharge will need to be reassessed to avoid potential outpatient hypo/hyperglycemia. Thank you.
[2016-10-08] MEDS ORDERED: NURSING VERBAL MED ORDER ONE (16:45)
[2016-10-08] MEDS ORDERED: POLYETHYLENE (MIRALAX) 17 GM PACK PO PRN (17:00)
[2016-10-08] MEDS ORDERED: DOCUSATE SODIUM 100 MG CAP PO ONE (17:00)
[2016-10-08] MEDS: ATORVASTATIN 40 MG TAB PO SCH (20:28)
[2016-10-08] MEDS: DOCUSATE SODIUM 100 MG CAP PO SCH (20:28)
[2016-10-08] MEDS: INSULIN GLARGINE SOLOSTAR 100 UNITS/ML 3 ML PEN SC SCH (20:34)
[2016-10-08] MEDS: OSELTAMIVIR PHOSPHATE SUSP 30 MG/5 ML UDP PO SCH (20:50)
[2016-10-08] MEDS ORDERED: METOPROLOL TARTRATE 25 MG TAB PO SCH (21:00)
[2016-10-09] VITALS (8 sets, daily range): BP systolic 104–165; BP diastolic 61–88; PULSE 54–141; TEMP 36.6–37.2; O2SAT 92–98; BMI 22.8
[2016-10-09] MEDS: METOPROLOL TARTRATE 1 MG/ML VIAL IV PRN ×2 (01:55→08:28)
[2016-10-09] MEDS: INSULIN ASPART 100 UNITS/ML 3 ML PEN SC SCH ×5 (04:00→20:59)
[2016-10-09] MEDS: HEPARIN SOD 5000 UNIT/0.5 ML CARP SQ SCH (05:34)
[2016-10-09 06:11] LABS: HEMATOCRIT 33.2 % (37-47); MEAN CELL VOLUME 90.2 fL (80-100); MEAN CORPUSCULAR HEMOGLOBIN 32.6 pg (25-34); MEAN CORPUSCULAR HGB CONC 36.1 g/dl (32-36); MEAN PLATELET VOLUME 11.3 fL (7.4-10.4); PLATELET COUNT 197 K/uL (130-400); RED BLOOD COUNT 3.68 M/uL (4.2-5.4); WHITE BLOOD COUNT 17.67 K/uL (4.8-10.8)
[2016-10-09 06:41] LABS: BUN/CREATININE RATIO 14.9 (10-20); CALCIUM 7.8 mg/dl (8.5-10.1); CREATININE 1.4 mg/dl (0.60-1.20); POTASSIUM 3.7 mmol/L (3.5-5.1)
[2016-10-09 06:51] LABS: THYROID STIMULATING HORMONE 0.884 uIu/ml (0.300-4.500)
[2016-10-09] MEDS: METOPROLOL SUCC 50MG EXT REL TAB PO SCH (08:28)
[2016-10-09] MEDS: DOCUSATE SODIUM 100 MG CAP PO SCH ×2 (08:29→19:49)
[2016-10-09] MEDS: ASPIRIN 81 MG ECTAB PO SCH (08:29)
[2016-10-09] MEDS: AMLODIPINE BESYLATE 5 MG TAB PO SCH (08:29)
--- NOTE | 2016-10-09 11:21 | Progress Note ---
Internal Med Progress Note Date of Service: Oct 09, 2016. Provider Documentation: SUBJECTIVE: Patient is feeling better today. Cough has improved. No chest pain, SOB, nausea, vomiting, abdominal pain, diarrhea, fever, chills Tele- Has been in Atrial Flutter with RVR 110-120s, now 130s On 2 L oxygen OBJECTIVE: Vital Signs-as noted below Exam: General-AAOX2, no distress Eyes-No icterus Neck-Supple, No JVD Lungs-AEBE decreased, no wheezing, rhonchi Heart-Tachycardia + Abdomen-Soft, non tender, non distended, BS present Extremities-No edema Neuro-No focal deficits Lab data as noted below. ASSESSMENT & PLAN: ATRIAL FLUTTER WITH RVR (NEW ONSET) Patient went into A flutter for some time with HR 120s 10/08/16 and spontaneously converted to sinus rhythm. Again next day went into Atrial Flutter with RVR. No prior hx of A flutter, this is new onset. -Likely secondary to Influenza, GERMAINE, Hypokalemia -Increased Metoprolol to 75 mg PO BID; IV lopressor q 4 hours as needed for HR > 110 (Home : Toprol XL 100 mg daily) -CHADS - 3. Discussed about daughter in law about anticoagulation given persistent Atrial Flutter- willing to help her with INR draws at labs as prior to admission she had a good active life for her age including ADLS, Driving, shopping. -Echocardiogram- EF 60-65%, Moderate LVH, Mild MS, TSH - normal DM-2 UNCONTROLLED: Underlying DM type 2 on oral meds; uncontrolled on last A1c in 07/2016 (10.0) Sent from Dr. Dominguez's office for elevated BSG to 400s; remains in 400s in ER Possibly elevated secondary to viral illness/Influenza -Hold diabetic medications. Insulin Lantus 12 units HS. -ISS -[id number] -Diabetes education done-- willing to do insulin at home. Plan to discharge on Insulin at home GERMAINE- Improving slowly Pre renal/Renal from viral illness Cr is 1.70 from baseline 0.9 Likely due to dehydration from recent viral illness -Hold Losartan and furosemide -S/P IV fluids-discontinued since 10/08/16 -Monitor renal function INFLUENZA A Symptoms are resolving -CXR- no infiltrate noted -On Azithromycin started as outpatient- complete the course -On Tamiflu HYPOKALEMIA/HYPOMAGNESEMIA Likely from recent diarrhea -Monitor Mg, K with new onset A flutter -Will give kdur x 20 meq (Goal= 4.0) and follow up Mg -Monitor ELEVATED TROPONIN Likely demand ischemia in setting of Influenza A No chest pain/cardiac symptoms; no hx of CAD; neg stress echo in 2008 EKG- no ischemic findings -Troponin- 1.180--> 1.560-->1.420 -Echo ordered to look for new wall motion abnormalities-- no new wall motion abn noted, EF 60-65% ABNORMAL CT ABD/PELVIS Incidental finding on CT - 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 Discussed results with daughter and aware about this finding. HTN Continue amlodipine and metoprolol -Losartan and furosemide on hold for GERMAINE HYPERLIPIDEMIA -Continue statin DVT PROPHYLAXIS -Heparin SQ CODE STATUS -Full code per my discussion with the patient DISPOSITION PT./OT ordered To be determined Called daughter in law to update 10/08/16 and discussed about new onset atrial flutter, risk of stroke associated with it, new anticoagulation, insulin and need for closer monitoring for blood sugar levels, INR draws. Understands and agreeable to giving more support. Vital Signs: Date Time Temp Pulse Resp B/P Pulse Ox O2 Delivery O2 Flow Rate FiO2 10/09/16 08:28 142 148/88 10/09/16 08:00 Nasal Cannula 2.0 10/09/16 08:00 36.7 98 18 148/88 95 Nasal Cannula 10/09/16 04:00 37.0 54 19 148/63 95 Nasal Cannula 2.0 10/09/16 04:00 Nasal Cannula 10/09/16 01:55 122 165/62 10/09/16 01:54 122 165/62 10/09/16 00:19 37.2 73 21 128/61 98 Nasal Cannula 2.0 10/08/16 23:59 Nasal Cannula 2.0 10/08/16 20:00 Nasal Cannula 2.0 10/08/16 19:57 37.6 73 22 160/73 93 10/08/16 16:10 103 93 10/08/16 16:02 37.7 125 22 150/77 97 10/08/16 16:00 Nasal Cannula 2.0 10/08/16 12:28 36.6 117 21 130/83 95 Nasal Cannula 2.0 10/08/16 12:00 Nasal Cannula 3.0 Lab Results: Results Past 24 Hours Test 10/08/16 16:18 10/08/16 20:22 10/08/16 23:43 10/09/16 03:26 Range/Units Bedside Glucose 270 311 174 118 70-90 mg/dl Test 10/09/16 05:33 10/09/16 06:31 Range/Units White Blood Count 17.67 4.8-10.8 K/uL Red Blood Count 3.68 4.2-5.4 M/uL Hemoglobin 12.0 12.0-16.0 g/dL Hematocrit 33.2 37-47 % Mean Corpuscular Volume 90.2 80-100 fL Mean Corpuscular Hemoglobin 32.6 25-34 pg Mean Corpuscular Hemoglobin Concent 36.1 32-36 g/dl RDW Standard Deviation 38.6 36.4-46.3 fL RDW Coefficient of Variation 11.8 11.5-14.5 % Platelet Count 197 130-400 K/uL Mean Platelet Volume 11.3 7.4-10.4 fL Sodium Level 133 136-145 mmol/L Potassium Level 3.7 3.5-5.1 mmol/L Chloride Level 100 98-107 mmol/L Carbon Dioxide Level 22 21-32 mmol/L Anion Gap 11.0 3-11 mmol/L Blood Urea Nitrogen 21 7-18 mg/dl Creatinine 1.40 0.60-1.20 mg/dl Est Creatinine Clear Calc Drug Dose 25.0 ml/min Estimated GFR () 38.8 Estimated GFR (Non- 33.5 BUN/Creatinine Ratio 14.9 10-20 Random Glucose 103 70-99 mg/dl Calcium Level 7.8 8.5-10.1 mg/dl Thyroid Stimulating Hormone (TSH) 0.884 0.300-4.500 uIu/ml Bedside Glucose 119 70-90 mg/dl
[2016-10-09] MEDS ORDERED: DILTIAZEM HCL 5 MG/ML 5 ML VIAL IV STA (12:25)
[2016-10-09] MEDS ORDERED: POTASSIUM CHLORIDE 20 MEQ TABCR PO STA (12:26)
[2016-10-09] MEDS ORDERED: DILTIAZEM HCL 5 MG/ML 5 ML VIAL ONE (12:37)
[2016-10-09] MEDS ORDERED: POTASSIUM CHLORIDE 20 MEQ TABCR PO SCH (12:45)
[2016-10-09] MEDS ORDERED: DILTIAZEM HCL 30 MG TAB PO ONE (12:45)
[2016-10-09] MEDS: SODIUM CHLORIDE 0.9% 1000ML 1,000 ML IV SCH (13:41)
[2016-10-09] MEDS: DILTIAZEM HCL 30 MG TAB PO SCH ×2 (13:42→21:01)
[2016-10-09] MEDS ORDERED: HEPARIN IV BOLUS 5,000 UNIT in SYRINGE 0 ML IV ONE (13:45)
[2016-10-09 14:10] LABS: HEMATOCRIT 33.6 % (37-47); MEAN CELL VOLUME 91.1 fL (80-100); MEAN PLATELET VOLUME 11.3 fL (7.4-10.4); PLATELET COUNT 204 K/uL (130-400); RED BLOOD COUNT 3.69 M/uL (4.2-5.4); WHITE BLOOD COUNT 18.43 K/uL (4.8-10.8)
[2016-10-09 14:12] LABS: MEAN CORPUSCULAR HGB CONC 35.1 g/dl (32-36)
[2016-10-09 14:19] LABS: PARTIAL THROMBOPLASTIN RATIO 1.3; PROTHROMBIN TIME (PATIENT) 10.7 SECONDS (9.0-12.0)
--- NOTE | 2016-10-09 14:22 | Pharmacy Progress Note ---
Glycemic: Assessment & Plan Date of Service Oct 09, 2016. Assessment & Plan Recent Pertinent Medications Outpatient Anti-diabetic Regimen: * Amaryl 4 mg daily, Januvia 100 mg daily * A1c = 12.7 % 10/07/16 The patient is currently receiving: * Basal insulin: Lantus 12 units every evening * Correctional Insulin: NovoLog Correction per scale AC+HS+00+04 Goal Range: Low 120 mg/dL - High 160 mg/dL Correction Factor: 35 mg/dL/unit * Prandial insulin: Per carb ratio of 1 unit per 15 grams CHO consumed * Oral Agents: none at this time Risk Factors for Insulin Resistance: * Infection: influenza A, on Tamiflu * IVF: NSS, heparin gtt (mixed in dextrose) * Diet: type 2 diabetic AHA Assessment & Plan ASSESSMENT: 10/08/16 * ADA & AACE recommend a goal blood sugar range 140-180 mg/dl for the majority of critically ill & non-critically ill patients. However, more stringent targets may be selected in individual cases. * 89 yo type 2 diabetic poorly controlled on oral meds alone. Will use weight- based insulin dosing for now and reassess in am. 10/09/16 * BSGs much improved after slight increase in both NovoLog and Lantus doses * continue same Lantus dose at this time (heparin gtt added which is providing additional IV dextrose) * continue NovoLog with the current parameters (good resolution of hyperglycemia shows sensitivity to insulin) - decrease Accu-checks to AC+HS+02 only * May benefit from insulin at discharge per provider note PLAN FOR INPATIENT GLYCEMIC CONTROL: * Continue Lantus 12 units SQ q HS * give 1/2 dose (6 units) if BSG is less than 120 * Continue NovoLog AC/HS/02 * Correction factor to 35 mg/dl/unit * Carb ratio to 1 unit per 15 grams CHO consumed * Goal range to Low 120 mg/dL - High 160 mg/dL, higher to decrease risk of hypoglycemia in elderly patient * A1c current - shows poor outpatient control * added to discharge instructions * Please note that the plan above was derived based on current level of insulin resistance and hospital stress. These recommendations are appropriate for inpatient admission only. Plan of care upon discharge will need to be reassessed to avoid potential outpatient hypo/hyperglycemia. Thank you.
[2016-10-09] MEDS: HEPARIN 25,000 UNIT/500ML D5W 500 ML IV PRN ×2 (14:33→21:32)
[2016-10-09] MEDS: WARFARIN SOD 5 MG TAB PO SCH (15:50)
--- NOTE | 2016-10-09 20:08 | CARDIOLOGY CONSULTATION ---
DATE OF CONSULTATION: 10/09/2016 REFERRING PHYSICIAN: Dr. Irma Schmid. REASON FOR CONSULTATION: Atrial flutter. CHIEF COMPLAINT ON ADMISSION: Hyperglycemia and dehydration. HISTORY OF PRESENT ILLNESS: Ms. Ortega is an 89-year-old female who was transferred from her primary care physician's office due to hyperglycemia. She was found to be dehydrated upon presentation. Diagnosed with influenza. The patient has been treated with intravenous fluid and antihyperglycemic medications. Last evening, the patient developed several short episodes of paroxysmal atrial fibrillation versus flutter on telemetry. The episodes spontaneously converted to sinus rhythm. This morning, she developed atrial flutter with 2:1 conduction, sustained at approximately 140 beats per minute. Consult is requested regarding further management. The patient was seen and examined at the bedside. Initially, asleep; however, easily arousable to verbal stimuli. She denies any chest discomfort, palpitations, lightheadedness, dizziness, syncope or near syncope. No history of atrial flutter; however, longstanding history of palpitations, treated with beta dixon therapy. Previously followed by Dr. Leary of the [facility] cardiology practice. The patient is unaware of her atrial flutter. Her troponins were initially mildly elevated on admission; however, denies any chest discomfort prior to or during this hospital admission. A resting 2D transthoracic echo has been performed demonstrating normal LV systolic function without regional wall motion abnormality. REVIEW OF SYSTEMS: The pertinent positive noted above, a comprehensive 10-system review is otherwise negative. PAST MEDICAL HISTORY: 1. Palpitations, premature atrial complexes. 2. Diabetes type 2. 3. CKD stage III. 4. Breast cancer. 5. Bladder cancer. 6. Dyslipidemia. 7. Hypertension. PAST SURGICAL HISTORY: 1. Cystoscopy. 2. Hernia repair. 3. Lymph node biopsy. 4. Partial mastectomy. 5. Laminectomy. 6. Total abdominal hysterectomy/bilateral salpingo-oophorectomy. 7. Moh's surgery. FAMILY HISTORY: Negative for premature CAD or sudden cardiac ; however, noncontributory given the patient's advanced age. SOCIAL HISTORY: Lifelong nonsmoker. She is , lives with her family. ALLERGIES: PIOGLITAZONE AND METFORMIN. HOME MEDICATIONS: 1. Amlodipine 5 mg daily. 2. Amoxil 500 mg daily. 3. Aspirin 81 mg daily. 4. Lipitor 40 mg at bedtime. 5. Z-Horacio as directed. 6. Lasix 20 mg daily. 7. Amaryl 4 mg daily. 8. Losartan 100 mg at bedtime. 9. Toprol-XL 100 mg daily. 10. Januvia 100 mg daily. ECG on admission demonstrates sinus rhythm with a right bundle-branch block. ECG performed in 10/08/2016 demonstrates atrial flutter with variable conduction, ventricular rate of 120 beats per minute. LABORATORY DATA: Sodium 133, potassium 3.7, chloride 100, CO2 of 22, BUN is 21, and creatinine is 1.40. Calcium 7.8. TSH 0.884. Magnesium 2.1. White blood cell count 17.67, hemoglobin is 12.0, and platelet count is 197. Influenza A is positive. Chest x-ray on admission limited study with clear upper lung zones. PHYSICAL EXAMINATION: VITAL SIGNS: Temperature is 36.7 degrees centigrade, pulse 141 beats per minute and regular, respiratory rate is 20 breaths per minute, blood pressure 104/63 and SaO2 96% on 2 liters. GENERAL: NAD, chronically ill, awake, alert and oriented. HEENT: Mucous membranes dry. No scleral icterus. Conjunctivae pink. NECK: Supple without JVD or HJR. No carotid bruit. HEART: Irregular and tachycardic with a normal S1 and S2. No murmur, rub or gallop. LUNGS: Clear without rales, rhonchi or wheeze. ABDOMEN: Soft and nontender. No rebound or guarding. Normal bowel sounds. EXTREMITIES: Warm and dry without clubbing, cyanosis, or edema. NEUROLOGIC: Demonstrates no focal motor deficit. FINAL IMPRESSION: 1. Paroxysmal atrial flutter with rapid ventricular response, elevated CHADS-VASc score due to diabetes, age, hypertension, and female sex. The patient is with a longstanding history of palpitations, although no documented sustained dysrhythmias in the past. 2. Mildly elevated troponin I on admission secondary to influenza/possible paroxysmal atrial flutter with RVR, type 2 demand ischemia. 3. Hypertension. 4. Acute kidney injury secondary to dehydration. 5. Hypokalemia/hypomagnesemia. PLAN AND RECOMMENDATIONS: The patient received 10 mg of intravenous diltiazem with transient improvement in ventricular rate. Agree with titration of metoprolol to 75 mg twice daily. She is scheduled for second dose of metoprolol this evening. The patient remains asymptomatic at this time. We will attempt to oral rate control strategy with diltiazem 30 mg q. 8 hours. She will receive a dose of diltiazem x1 now. May consider intravenous diltiazem infusion during hospitalization. The patient appears mildly volume depleted. We will restart gentle intravenous hydration with normal saline. Maintain potassium greater than 4.0 and magnesium greater than 2.0. Subcutaneous heparin will be discontinued in favor of intravenous heparin at this time. No indication for urgent cardioversion currently. We will continue to follow during hospitalization. Thank you for allowing me to take part in the care of your patient. COLLIN
[2016-10-09] MEDS: INSULIN GLARGINE SOLOSTAR 100 UNITS/ML 3 ML PEN SC SCH (20:59)
[2016-10-09] MEDS: METOPROLOL TARTRATE 25 MG TAB PO SCH (21:00)
[2016-10-09] MEDS: ATORVASTATIN 40 MG TAB PO SCH (21:01)
[2016-10-09] MEDS: OSELTAMIVIR PHOSPHATE SUSP 30 MG/5 ML UDP PO SCH (21:03)
[2016-10-10] VITALS (10 sets, daily range): BP systolic 117–158; BP diastolic 58–86; PULSE 65–98; TEMP 36.5–36.9; O2SAT 90–95
[2016-10-10] MEDS ORDERED: INSULIN ASPART 100 UNITS/ML 3 ML PEN SC SCH (02:00)
[2016-10-10] MEDS: SODIUM CHLORIDE 0.9% 1000ML 1,000 ML IV SCH (02:16)
[2016-10-10 03:47] LABS: HEMATOCRIT 31.3 % (37-47); MEAN CELL VOLUME 92.3 fL (80-100); MEAN CORPUSCULAR HEMOGLOBIN 32.2 pg (25-34); MEAN CORPUSCULAR HGB CONC 34.8 g/dl (32-36); MEAN PLATELET VOLUME 11.2 fL (7.4-10.4); PLATELET COUNT 219 K/uL (130-400); RED BLOOD COUNT 3.39 M/uL (4.2-5.4); WHITE BLOOD COUNT 14.69 K/uL (4.8-10.8)
[2016-10-10 04:03] LABS: PARTIAL THROMBOPLASTIN RATIO 2.4; PROTHROMBIN TIME (PATIENT) 10.7 SECONDS (9.0-12.0)
[2016-10-10 04:13] LABS: BUN/CREATININE RATIO 16.1 (10-20); CALCIUM 7.7 mg/dl (8.5-10.1); CREATININE 1.5 mg/dl (0.60-1.20); MAGNESIUM 1.9 mg/dl (1.8-2.4)
[2016-10-10] MEDS: DILTIAZEM HCL 30 MG TAB PO SCH ×3 (07:51→21:01)
[2016-10-10] MEDS: DOCUSATE SODIUM 100 MG CAP PO SCH ×2 (07:52→21:00)
[2016-10-10] MEDS: ASPIRIN 81 MG ECTAB PO SCH (07:52)
[2016-10-10] MEDS: AMLODIPINE BESYLATE 5 MG TAB PO SCH (07:53)
[2016-10-10] MEDS: METOPROLOL TARTRATE 25 MG TAB PO SCH ×2 (07:53→21:01)
[2016-10-10] MEDS: INSULIN ASPART 100 UNITS/ML 3 ML PEN SC SCH ×5 (08:00→23:51)
--- NOTE | 2016-10-10 11:37 | PROGRESS NOTE ---
DATE: 10/10/2016 The patient seen and examined. Chart, medications, telemetry reviewed. SUBJECTIVE: The patient is feeling improved this morning, was able to eat and drink. Notes no chest pains. Notes no bleeding difficulties. Notes no sense of tachy palpitations. On review of telemetry, the patient spontaneously converted to sinus rhythm last evening. Has rare atrial ectopy now. OBJECTIVE: VITAL SIGNS: Heart rate is 75. Blood pressure is 158/86. NECK: Thin. There is no distinct jugular venous distention. LUNGS: Notable for few crackles basilar. There is a bronchitic cough present. CARDIOVASCULAR: Regular. There is no S3 gallop. ABDOMEN: Soft with mild distention. EXTREMITIES: Without cyanosis or clubbing. There is no peripheral edema. IMPRESSION: An 89-year-old female admitted with acute influenza A, mixed metabolic derangement with clinical course complicated by transient atrial flutter. She subsequently returned to sinus rhythm with medical therapies including increased metoprolol and addition of oral diltiazem. We will continue current therapies as prescribed including anticoagulation for additional 24 hours unless bleeding issues develop. Atrial fibrillation appears to be incited by acute illness. The patient appears clinically to be recovering. We will hold IV fluids at this point in time as she is now taking p.o. well. Will add topical nitrates for hypertension control with plan on resuming losartan at reduced dose in a.m. as clinical course progresses.
--- NOTE | 2016-10-10 12:10 | Progress Note ---
Internal Med Progress Note Date of Service: Oct 10, 2016. Provider Documentation: SUBJECTIVE: Patient is feeling better today. Cough has improved. No chest pain, SOB, nausea, vomiting, abdominal pain, diarrhea, fever, chills Tele- NSR with HR 70s On 2 L oxygen OBJECTIVE: Vital Signs-as noted below Exam: General-AAOX2, no distress Eyes-No icterus Neck-Supple, No JVD Lungs-AEBE decreased, no wheezing, rhonchi Heart-S1, S2 normal Abdomen-Soft, non tender, non distended, BS present Extremities-No edema Neuro-No focal deficits Lab data as noted below. ASSESSMENT & PLAN: ATRIAL FLUTTER WITH RVR (NEW ONSET) -Now NSR with HR in 70s Patient went into A flutter for some time with HR 120s 10/08/16 and spontaneously converted to sinus rhythm. Again next day went into Atrial Flutter with RVR. No prior hx of A flutter, this is new onset. -Likely secondary to Influenza, GERMAINE, Hypokalemia -Increased Metoprolol to 75 mg PO BID on 10/09/16; Cardizem PO added by cardio on 10/09/16; IV lopressor q 4 hours as needed for HR > 110 (Home : Toprol XL 100 mg daily) -CHADS - 3. Discussed about daughter in law about anticoagulation given persistent Atrial Flutter- willing to help her with INR draws at labs as prior to admission she had a good active life for her age including ADLS, Driving, shopping. IV Heparin/Coumadin started on 10/09/16 -Echocardiogram- EF 60-65%, Moderate LVH, Mild MS, TSH - normal DM-2 UNCONTROLLED: Underlying DM type 2 on oral meds; uncontrolled on last A1c in 07/2016 (10.0) Sent from Dr. Dominguez's office for elevated BSG to 400s; remains in 400s in ER Possibly elevated secondary to viral illness/Influenza -Hold diabetic medications. Insulin Lantus 12 units HS. -ISS -[id number] -Diabetes education done -- willing to do insulin at home. Plan to discharge on Insulin at home GERMAINE- Improving slowly Pre renal/Renal from viral illness Cr is 1.70 from baseline 0.9 Likely due to dehydration from recent viral illness -Hold Losartan and furosemide -S/P IV fluids-discontinued since 10/08/16 -Monitor renal function INFLUENZA A Symptoms are resolving -CXR- no infiltrate noted -On Azithromycin started as outpatient- completed the course -On Tamiflu HYPOKALEMIA/HYPOMAGNESEMIA Likely from recent diarrhea -Monitor Mg, K with new onset A flutter -Monitor ELEVATED TROPONIN Likely demand ischemia in setting of Influenza A No chest pain/cardiac symptoms; no hx of CAD; neg stress echo in 2008 EKG- no ischemic findings -Troponin- 1.180--> 1.560-->1.420 -Echo ordered to look for new wall motion abnormalities -- no new wall motion abn noted, EF 60-65% ABNORMAL CT ABD/PELVIS Incidental finding on CT - 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 Discussed results with daughter and aware about this finding. HTN Continue amlodipine and metoprolol -Losartan and furosemide on hold for GERMAINE HYPERLIPIDEMIA -Continue statin DVT PROPHYLAXIS -Heparin SQ CODE STATUS -Full code per my discussion with the patient DISPOSITION PT./OT ordered To be determined Called daughter in law to update 10/08/16 and discussed about new onset atrial flutter, risk of stroke associated with it, new anticoagulation, insulin and need for closer monitoring for blood sugar levels, INR draws. Understands and agreeable to giving more support. Vital Signs: Date Time Temp Pulse Resp B/P Pulse Ox O2 Delivery O2 Flow Rate FiO2 10/10/16 11:27 36.5 65 18 151/58 90 10/10/16 08:00 94 Nasal Cannula 2.0 10/10/16 07:22 36.7 75 18 158/86 94 10/10/16 04:00 Nasal Cannula 2.0 10/10/16 03:57 36.8 75 19 117/71 92 Nasal Cannula 2.0 10/10/16 00:00 36.7 70 21 132/72 90 Nasal Cannula 2.0 10/09/16 23:59 Nasal Cannula 2.0 10/09/16 20:00 Nasal Cannula 2.0 10/09/16 19:40 36.6 71 24 153/68 97 Nasal Cannula 2.0 10/09/16 16:51 92 Nasal Cannula 3.0 10/09/16 15:30 36.7 104 22 104/63 92 Nasal Cannula 3.0 Lab Results: Results Past 24 Hours Test 10/09/16 13:55 10/09/16 16:20 10/09/16 20:11 10/09/16 20:43 Range/Units White Blood Count 18.43 4.8-10.8 K/uL Red Blood Count 3.69 4.2-5.4 M/uL Hemoglobin 11.8 12.0-16.0 g/dL Hematocrit 33.6 37-47 % Mean Corpuscular Volume 91.1 80-100 fL Mean Corpuscular Hemoglobin 32.0 25-34 pg Mean Corpuscular Hemoglobin Concent 35.1 32-36 g/dl RDW Standard Deviation 39.6 36.4-46.3 fL RDW Coefficient of Variation 11.8 11.5-14.5 % Platelet Count 204 130-400 K/uL Mean Platelet Volume 11.3 7.4-10.4 fL Prothrombin Time 10.7 9.0-12.0 SECONDS Prothromb Time International Ratio 1.0 0.9-1.1 Activated Partial Thromboplast Time 33.1 78.1 21.0-31.0 SECONDS Partial Thromboplastin Ratio 1.3 3.0 Bedside Glucose 292 303 70-90 mg/dl Test 10/10/16 01:58 10/10/16 03:19 10/10/16 06:51 10/10/16 11:27 Range/Units Bedside Glucose 180 194 208 70-90 mg/dl White Blood Count 14.69 4.8-10.8 K/uL Red Blood Count 3.39 4.2-5.4 M/uL Hemoglobin 10.9 12.0-16.0 g/dL Hematocrit 31.3 37-47 % Mean Corpuscular Volume 92.3 80-100 fL Mean Corpuscular Hemoglobin 32.2 25-34 pg Mean Corpuscular Hemoglobin Concent 34.8 32-36 g/dl RDW Standard Deviation 40.6 36.4-46.3 fL RDW Coefficient of Variation 12.0 11.5-14.5 % Platelet Count 219 130-400 K/uL Mean Platelet Volume 11.2 7.4-10.4 fL Prothrombin Time 10.7 9.0-12.0 SECONDS Prothromb Time International Ratio 1.0 0.9-1.1 Activated Partial Thromboplast Time 62.6 21.0-31.0 SECONDS Partial Thromboplastin Ratio 2.4 Sodium Level 132 136-145 mmol/L Potassium Level 4.0 3.5-5.1 mmol/L Chloride Level 99 98-107 mmol/L Carbon Dioxide Level 22 21-32 mmol/L Anion Gap 11.0 3-11 mmol/L Blood Urea Nitrogen 24 7-18 mg/dl Creatinine 1.50 0.60-1.20 mg/dl Est Creatinine Clear Calc Drug Dose 23.3 ml/min Estimated GFR () 35.7 Estimated GFR (Non- 30.8 BUN/Creatinine Ratio 16.1 10-20 Random Glucose 173 70-99 mg/dl Calcium Level 7.7 8.5-10.1 mg/dl Magnesium Level 1.9 1.8-2.4 mg/dl
[2016-10-10] MEDS: NITROGLYCERIN OINT 2% 1GM PACKET EXT SCH ×3 (12:45→23:49)
--- NOTE | 2016-10-10 17:09 | Pharmacy Progress Note ---
Glycemic: Assessment & Plan Date of Service Oct 10, 2016. Assessment & Plan The patient received 36 units of insulin on 10/08, 32 units on 10/09. BSGs ranging 173 - 303 mg/dl over the past 24hrs. FBS trending down. Heparin drip ( mixed in D5W) was started yesterday resulting in some highs. Lantus now approaching steady-state. Will tighten carb ratio and reassess in am. * Basal insulin: Lantus 12 units every hs * Correctional Insulin: Novolog Correction per scale ACHS Goal Range: Low 120 mg/dL - High 160 mg/dL Correction Factor: 35 mg/dL/unit * Prandial insulin: Per carb ratio of 1 unit per 12 grams CHO consumed BSGs continue to improve, no other changes needed to inpatient regimen at this time. Pharmacy will continue to monitor patient daily and write orders per [facility] inpatient glycemic control protocol. Thanks. * Please note that the plan above was derived based on current level of insulin resistance and hospital stress. These recommendations are appropriate for inpatient admission only. Plan of care upon discharge will need to be reassessed to avoid potential outpatient hypo/hyperglycemia.
[2016-10-10] MEDS: WARFARIN SOD 5 MG TAB PO SCH (17:13)
[2016-10-10] MEDS ORDERED: INSULIN REGULAR 5 UNITS in SYRINGE 4.95 ML IV SCH (21:00)
[2016-10-10] MEDS: ATORVASTATIN 40 MG TAB PO SCH (21:01)
[2016-10-10] MEDS: OSELTAMIVIR PHOSPHATE SUSP 30 MG/5 ML UDP PO SCH (21:01)
[2016-10-10] MEDS: INSULIN GLARGINE SOLOSTAR 100 UNITS/ML 3 ML PEN SC SCH (21:23)
[2016-10-11] VITALS (17 sets, daily range): BP systolic 106–144; BP diastolic 53–80; PULSE 78–128; TEMP 36.5–37.4; O2SAT 87–98
[2016-10-11] MEDS ORDERED: LEVALBUTEROL/IPRATROPIUM NEB INH SCH
[2016-10-11] MEDS ORDERED: FUROSEMIDE 40 MG/4 ML VIAL ONE ×2 (00:09→09:53)
[2016-10-11] MEDS ORDERED: LEVALBUTEROL 1.25MG/0.5ML NEB INH STA (00:18)
[2016-10-11] MEDS ORDERED: IPRATROPIUM BROMIDE NEB SOLN 0.02% 2.5 ML VIAL INH STA (00:18)
[2016-10-11] MEDS ORDERED: FUROSEMIDE INJ 40 MG in SYRINGE 0 ML IV ONE ×2 (00:30→10:00)
[2016-10-11] MEDS: METOPROLOL TARTRATE 1 MG/ML VIAL IV PRN ×2 (00:38→05:43)
[2016-10-11] MEDS ORDERED: DILTIAZEM HCL 5 MG/ML 5 ML VIAL IV STA (01:44)
[2016-10-11] MEDS ORDERED: NURSING VERBAL MED ORDER ONE ×2 (01:45→15:15)
[2016-10-11] MEDS ORDERED: METOPROLOL TARTRATE 1 MG/ML VIAL IV ONE (02:00)
[2016-10-11] MEDS: IPRATROPIUM BROMIDE NEB SOLN 0.02% 2.5 ML VIAL INH SCH ×5 (03:29→20:00)
[2016-10-11] MEDS: LEVALBUTEROL 1.25MG/0.5ML NEB INH SCH ×5 (03:29→20:00)
[2016-10-11] MEDS ORDERED: DILTIAZEM BOLUS / DRIP IV STA (03:54)
[2016-10-11] MEDS ORDERED: DILTIAZEM HCL 5 MG/ML 5 ML VIAL IV SCH (04:15)
[2016-10-11] MEDS: INSULIN ASPART 100 UNITS/ML 3 ML PEN SC SCH ×5 (04:20→21:56)
[2016-10-11] MEDS: DILTIAZEM HCL INJ 125 MG in DEXTROSE 5% 100ML IV PRN ×2 (04:29→05:32)
[2016-10-11] MEDS ORDERED: LORAZEPAM 0.5 MG TAB ONE (05:24)
[2016-10-11] MEDS ORDERED: LORAZEPAM 0.5 MG TAB PO ONE (05:30)
[2016-10-11] MEDS: NITROGLYCERIN OINT 2% 1GM PACKET EXT SCH ×3 (05:45→17:13)
[2016-10-11 06:07] LABS: PARTIAL THROMBOPLASTIN RATIO 1.9; PROTHROMBIN TIME (PATIENT) 11.2 SECONDS (9.0-12.0)
[2016-10-11] MEDS: DOCUSATE SODIUM 100 MG CAP PO SCH ×2 (07:41→20:25)
[2016-10-11] MEDS: ASPIRIN 81 MG ECTAB PO SCH (07:42)
[2016-10-11] MEDS: AMLODIPINE BESYLATE 5 MG TAB PO SCH (07:42)
[2016-10-11] MEDS: METOPROLOL TARTRATE 25 MG TAB PO SCH ×2 (07:42→20:26)
--- NOTE | 2016-10-11 09:19 | Progress Note ---
Internal Med Progress Note Date of Service: Oct 11, 2016. Provider Documentation: SUBJECTIVE: Patient had significant sob overnight and was given IV Lasix 40 mg . Says feels better now. Did go into Atrial flutter with RVR again overnight and was started on IV cardizem drip. Cough has improved. No chest pain, SOB, nausea, vomiting, abdominal pain, diarrhea, fever, chills Tele- Converted to NSR with HR in 90s now On 2 L oxygen OBJECTIVE: Vital Signs-as noted below Exam: General-AAOX2, no distress Eyes-No icterus Neck-Supple, No JVD Lungs-AEBE decreased, no wheezing, rhonchi Heart-S1, S2 normal Abdomen-Soft, non tender, non distended, BS present Extremities-No edema Neuro-No focal deficits Lab data as noted below. ASSESSMENT & PLAN: ATRIAL FLUTTER WITH RVR (NEW ONSET) -Now NSR with HR in 90s Patient went into A flutter for some time with HR 120s 10/08/16 and spontaneously converted to sinus rhythm. Again next day went into Atrial Flutter with RVR- fluctuating between A flutter RVR and NSR. No prior hx of A flutter, this is new onset. -Likely secondary to Influenza, GERMAINE, Hypokalemia -Increased Metoprolol to 75 mg PO BID on 10/09/16; Cardizem PO added by cardio on 10/09/16; IV lopressor q 4 hours as needed for HR > 110 (Home : Toprol XL 100 mg daily) -CHADS - 3. Discussed about daughter in law about anticoagulation given persistent Atrial Flutter- willing to help her with INR draws at labs as prior to admission she had a good active life for her age including ADLS, Driving, shopping. IV Heparin/Coumadin started on 10/09/16 -Echocardiogram- EF 60-65%, Moderate LVH, Mild MS, TSH - normal PLAN: IV cardizem drip started overnight due to A flutter with RVR. Will start weaning her off slowly with NSR and rate controlled. On IV Heparin/Coumadin- to be continued. PULMONARY EDEMA -Unclear if known case of CHF, but on lasix 20 mg at home -Overnight went into SOB--> CXR- congestion--> IV Lasix 40 mg x 1 dose -Will start lasix 40 mg po bid (home lasix 20 mg) -Monitor -Echo- EF 60-65%, Moderate LVH, Mild MS DM-2 UNCONTROLLED: Underlying DM type 2 on oral meds; uncontrolled on last A1c in 07/2016 (10.0) Sent from Dr. Dominguez's office for elevated BSG to 400s; remains in 400s in ER Possibly elevated secondary to viral illness/Influenza -Hold diabetic medications. Insulin Lantus /ISS per pharmacy- appreciate inputs -[id number] -Diabetes education done -- willing to do insulin at home. Plan to discharge on Insulin at home GERMAINE- Improving slowly Pre renal/Renal from viral illness Cr is 1.70 from baseline 0.9 Likely due to dehydration from recent viral illness initially--> IVF--> discontinue don 10/10/16. Now congestion -Restarted lasix. Continue to hold losartan -Monitor renal function INFLUENZA A Symptoms are resolving -CXR- no infiltrate noted -On Azithromycin started as outpatient- completed the course -On Tamiflu- completed course HYPOKALEMIA/HYPOMAGNESEMIA Likely from recent diarrhea -Monitor Mg, K with new onset A flutter -Monitor ELEVATED TROPONIN Likely demand ischemia in setting of Influenza A No chest pain/cardiac symptoms; no hx of CAD; neg stress echo in 2008 EKG- no ischemic findings -Troponin- 1.180--> 1.560-->1.420 -Echo ordered to look for new wall motion abnormalities -- no new wall motion abn noted, EF 60-65% ABNORMAL CT ABD/PELVIS Incidental finding on CT - 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 Discussed results with daughter and aware about this finding. HTN Continue amlodipine and metoprolol -Losartan and furosemide on hold for GERMAINE HYPERLIPIDEMIA -Continue statin DVT PROPHYLAXIS -Heparin SQ CODE STATUS -Full code per my discussion with the patient DISPOSITION PT./OT ordered To be determined Called daughter in law to update 10/08/16 and discussed about new onset atrial flutter, risk of stroke associated with it, new anticoagulation, insulin and need for closer monitoring for blood sugar levels, INR draws. Understands and agreeable to giving more support. Vital Signs: Date Time Temp Pulse Resp B/P Pulse Ox O2 Delivery O2 Flow Rate FiO2 10/11/16 07:35 37.4 108 20 143/78 90 Nasal Cannula 6.0 10/11/16 07:03 102 26 90 Nasal Cannula 6.0 10/11/16 05:43 126 133/86 10/11/16 04:00 36.9 128 30 136/72 90 Nasal Cannula 6.0 10/11/16 04:00 Nasal Cannula 6.0 10/11/16 03:29 118 28 90 Nasal Cannula 6.0 10/11/16 01:59 125 130/74 10/11/16 00:38 112 144/79 10/11/16 00:30 112 24 144/79 89 Nasal Cannula 3.0 10/11/16 00:10 83 20 92 Nasal Cannula 6.0 10/10/16 23:59 Nasal Cannula 2.0 10/10/16 23:56 36.8 83 24 124/67 90 Nasal Cannula 6.0 10/10/16 20:00 Nasal Cannula 2.0 10/10/16 19:44 36.9 98 18 145/72 92 Nasal Cannula 3.0 10/10/16 16:10 36.8 79 18 149/66 92 3.0 10/10/16 16:00 94 Nasal Cannula 2.0 10/10/16 12:00 95 Nasal Cannula 2.0 10/10/16 11:27 36.5 65 18 151/58 90 Lab Results: Results Past 24 Hours Test 10/10/16 11:27 10/10/16 16:12 10/10/16 20:18 10/10/16 23:48 Range/Units Bedside Glucose 208 320 397 219 70-90 mg/dl Test 10/11/16 04:18 10/11/16 05:05 10/11/16 06:41 Range/Units Bedside Glucose 233 239 70-90 mg/dl Prothrombin Time 11.2 9.0-12.0 SECONDS Prothromb Time International Ratio 1.0 0.9-1.1 Activated Partial Thromboplast Time 48.5 21.0-31.0 SECONDS Partial Thromboplastin Ratio 1.9
[2016-10-11 09:39] LABS: HEMATOCRIT 31.3 % (37-47); MEAN CELL VOLUME 91.5 fL (80-100); MEAN CORPUSCULAR HEMOGLOBIN 32.7 pg (25-34); MEAN CORPUSCULAR HGB CONC 35.8 g/dl (32-36); MEAN PLATELET VOLUME 11.3 fL (7.4-10.4); PLATELET COUNT 326 K/uL (130-400); RED BLOOD COUNT 3.42 M/uL (4.2-5.4)
[2016-10-11 09:45] LABS: CREATININE 1.6 mg/dl (0.60-1.20)
[2016-10-11 09:46] LABS: BUN/CREATININE RATIO 16.4 (10-20); POTASSIUM 3.7 mmol/L (3.5-5.1)
--- NOTE | 2016-10-11 10:11 | DIAGNOSTIC IMAGING REPORT ---
CHEST ONE VIEW PORTABLE HISTORY: Short of breath. r/o pulmonary edema COMPARISON: Chest 10/06/2016. FINDINGS: The heart is mildly enlarged. There are new small bilateral pleural effusions and diffuse interstitial and vascular thickening consistent with mild pulmonary edema. No pneumothorax. Right medial lung base airspace opacity. IMPRESSION: 1. Mild interstitial pulmonary edema and small bilateral pleural effusions. 2. Right medial lung base airspace opacity which may represent a pneumonia. Recommend follow-up to resolution. Electronically signed by: Reji Linn M.D. 10/11/2016 10:09 AM
[2016-10-11 11:03] LABS: ALLEN TEST POS (POS); ARTERIAL BLD GAS O2 SATURATION 88.7 % (90-95); ARTERIAL BLOOD GAS BASE EXCESS -1.9 mEq/L (-9-1.8); ARTERIAL BLOOD GAS HCO3 21 mmol/L (19-24); ARTERIAL BLOOD GAS PO2 54 mm/Hg (80-95); ARTERIAL BLOOD GAS pH 7.48 (7.35-7.45); O2 ADMINISTRATION 15L
[2016-10-11] MEDS ORDERED: CONSULT PHARMACY STA (11:51)
[2016-10-11] MEDS: DILTIAZEM HCL 30 MG TAB PO SCH ×2 (12:01→20:25)
--- NOTE | 2016-10-11 12:22 | CARDIOLOGY PROGRESS NOTE ---
DATE: 10/11/2016 SUBJECTIVE: The patient is seen and examined at the bedside. Notes increase in cough without productive sputum. Currently, receiving a nebulizer treatment. She has intermittently converted to sinus rhythm and then reverted to atrial fibrillation/flutter with rapid ventricular response. Telemetry notable for 3 pauses overnight, the longest being 4.2 seconds at approximately 6:50 a.m. This is while Cardizem was infusing at 15 mg per hour. Her drip was subsequently reduced to 10 mg per hour. There have been no recurrent pauses. Her heart rate remains approximately 100-110 beats per minute in atrial fibrillation/flutter. The patient was noted to be hypoxic. A repeat x-ray demonstrated small bilateral pleural effusions and she received a dose of intravenous Lasix. It appears subjectively she feels better from a respiratory standpoint. She denies chest discomfort or palpitations. REVIEW OF SYSTEMS: Pertinent positives noted above, four system review including pulmonary, cardiovascular, gastroenterologic, musculoskeletal otherwise negative. LABORATORY DATA: Sodium 132, potassium 3.7, carbon dioxide 21, BUN is 26, creatinine is 1.60. INR is 1.0. White blood cell count 13.20. Her hemoglobin is 11.2 and platelet count is 326. ABG performed this morning 7.48/28/54/88.7% on 15 liters. PHYSICAL EXAMINATION: VITAL SIGNS: Temperature is 37.4 degrees centigrade, her pulse is 110 beats per minute and irregular, respiratory rate is 24 breaths per minute, blood pressure 143/78. SAO2 is 92% on a Venturi mask, 90% on 6 liters nasal cannula. GENERAL: No acute distress, awake and alert. HEENT: Her mucous membranes are dry. There is no scleral icterus. Conjunctivae are pink. NECK: Supple. There is no JVD or HJR. No carotid bruit. HEART: Irregular and borderline tachycardic with a normal S1 and S2, no murmur appreciated. LUNGS: Demonstrate crackles at the bases bilaterally. ABDOMEN: Soft and nontender. No rebound or guarding. EXTREMITIES: Warm and dry without clubbing, cyanosis, or edema. NEUROLOGIC: Demonstrates no focal motor deficit. FINAL IMPRESSION: 1. An 89-year-old female admitted with acute influenza A, possible pneumonia. 2. Paroxysmal atrial fibrillation/flutter with intermittent rapid ventricular response as well as 4.2 second pause documented on diltiazem infusion. 3. Hypoxia secondary to possible underlying pneumonia, mild volume overload and pulmonary congestion on x-ray. The patient's weight has increased during hospitalization although the accuracy of her this data is not performed on bedside scale. Her mucous membranes appear dry. Creatinine trending upward today to 1.6. PLAN AND RECOMMENDATIONS: Heart rate discussed with nursing. Cardizem infusion reduced to 10 mg per hour. Instructed resume oral diltiazem in an attempt to wean the diltiazem infusion allowing for heart rates of 100-110 beats per minute at this time. Would avoid further boluses of IV Cardizem if possible. She will continue oral beta blockers previously ordered. Agree with a dose of intravenous Lasix this a.m. Will continue to follow volume status/renal function closely. Continue intravenous heparin. Hold IV fluid. We will continue to follow.
[2016-10-11] MEDS ORDERED: PIPERACILL/TAZOBAC CONSULT ACTIVE PRN (12:30)
[2016-10-11] MEDS ORDERED: VANCOMYCIN CONSULT ACTIVE PRN (12:30)
[2016-10-11] MEDS ORDERED: PIPERACILL/TAZOBAC IV 3.375 GM in DEXTROSE 5% 100ML 100 ML IV ONE (12:30)
--- NOTE | 2016-10-11 12:50 | Pharmacy Progress Note ---
Pharmacy Antibiotic Consult Date of Service: Oct 11, 2016. Pharmacy Dosing Scope Pharmacy is consulted to initiate Vancomycin IV dosing therapy, order appropriate labs and adjust drug dose/frequency for possible Pneumonia. Subjective The patient is a 89 year old female admitted on Oct 06, 2016 at 19:02. Objective Height (Feet): 5 Height (Inches): 5.00 Weight (Kilograms): 67.800 Lab Results (24hrs): Laboratory Tests Test 10/11/16 05:05 BUN/Creatinine Ratio 16.4 Blood Urea Nitrogen 26 mg/dl Creatinine 1.60 mg/dl White Blood Count 13.20 K/uL Recent Pertinent Medications Also on Zosyn 3.375 g IV q12h renally dosed for borderline Crcl = 21.9 today. Assessment & Plan * Vancomycin 1350 mg (20 mg/kg) load is ordered for this patient for 1300 today. * Serum creat has been trending up from a b/l of 0.9. * Since renal function is fluctuating down, will dose Vancomycin based on random levels. * Goal trough level estimate: between 15 - 20 mcg/mL for Pneumonia. * Random Vanco level has been ordered for 10/12 with AM labs. * Will check level tomorrow and order further Vancomycin doses based on level. Pharmacy will continue to follow and will adjust dose/frequency as necessary. Thank you
[2016-10-11] MEDS ORDERED: VANCOMYCIN INJ 1,350 MG in SODIUM CHLORIDE 0.9% 250ML 250 ML IV ONE (13:00)
--- NOTE | 2016-10-11 14:21 | Pharmacy Progress Note ---
Glycemic: Assessment & Plan Date of Service Oct 11, 2016. Assessment & Plan Item Value Date Time Bedside Glucose 293 mg/dl H 10/11/16 1059 Bedside Glucose 239 mg/dl H 10/11/16 0641 Random Glucose 238 mg/dl H 10/11/16 0505 Bedside Glucose 233 mg/dl H 10/11/16 0418 Bedside Glucose 219 mg/dl H 10/10/16 2348 Bedside Glucose 397 mg/dl H 10/10/162017 Bedside Glucose 320 mg/dl H 10/10/16 1612 Bedside Glucose 208 mg/dl H 10/10/16 1127 Bedside Glucose 194 mg/dl H 10/10/16 0651 Random Glucose 173 mg/dl H 10/10/16 0319 10/08/16: The patient received 36 units of insulin. 10/09/16: The patient received 32 units of insulin. 10/10/16: The patient received 42 units of insulin. * Basal insulin: Tightened Lantus 13 units every HS, give 1/2 dose for BSG < 120mg/dL * Correctional Insulin: Novolog Correction per scale ACHS & 0000/0400 Goal Range: Low 120 mg/dL - High 160 mg/dL Tightened Correction Factor: 25 mg/dL/unit * Prandial insulin: Tightened carb ratio of 1 unit per 11 grams CHO consumed Pharmacy will continue to monitor patient daily and write orders per [facility] inpatient glycemic control protocol. Thanks. * Please note that the plan above was derived based on current level of insulin resistance and hospital stress. These recommendations are appropriate for inpatient admission only. Plan of care upon discharge will need to be reassessed to avoid potential outpatient hypo/hyperglycemia.
[2016-10-11] MEDS ORDERED: COUGH DROP (SUGAR FREE) LOZ 24 LOZ/1 BOX ONE (14:53)
[2016-10-11] MEDS ORDERED: FUROSEMIDE 40 MG TAB PO SCH ×2 (17:00)
[2016-10-11] MEDS ORDERED: INSULIN REGULAR 5 UNITS in SYRINGE 4.95 ML IV SCH ×2 (17:00→21:45)
[2016-10-11] MEDS: WARFARIN SOD 5 MG TAB PO SCH (17:11)
[2016-10-11] MEDS: GUAIFENESIN SUGAR FREE 100 MG/5 ML UDC PO PRN (17:12)
[2016-10-11] MEDS: PIPERACILL/TAZOBAC IV 3.375 GM in DEXTROSE 5% 100ML 100 ML IV SCH (17:13)
[2016-10-11] MEDS: GUAIFENESIN 600 MG TABCR PO SCH (20:24)
[2016-10-11] MEDS: ATORVASTATIN 40 MG TAB PO SCH (20:26)
[2016-10-11] MEDS ORDERED: INSULIN GLARGINE SOLOSTAR 100 UNITS/ML 3 ML PEN SC SCH (21:00)
[2016-10-11] MEDS ORDERED: INSULIN GLARGINE SOLOSTAR 100 UNITS/ML 3 ML PEN SC ONE (21:30)
[2016-10-12] VITALS (19 sets, daily range): BP systolic 108–183; BP diastolic 44–104; PULSE 68–134; TEMP 36.7–36.9; O2SAT 89–96; BMI 24.6
[2016-10-12] MEDS: LEVALBUTEROL 1.25MG/0.5ML NEB INH SCH ×7 (00:01→23:36)
[2016-10-12] MEDS: IPRATROPIUM BROMIDE NEB SOLN 0.02% 2.5 ML VIAL INH SCH ×7 (00:01→23:36)
[2016-10-12] MEDS: INSULIN ASPART 100 UNITS/ML 3 ML PEN SC SCH ×6 (00:08→20:31)
[2016-10-12] MEDS: NITROGLYCERIN OINT 2% 1GM PACKET EXT SCH ×5 (00:10→23:39)
[2016-10-12] MEDS: HEPARIN 25,000 UNIT/500ML D5W 500 ML IV PRN ×3 (00:54→15:42)
[2016-10-12] MEDS: GUAIFENESIN SUGAR FREE 100 MG/5 ML UDC PO PRN (04:44)
[2016-10-12] MEDS: PIPERACILL/TAZOBAC IV 3.375 GM in DEXTROSE 5% 100ML 100 ML IV SCH ×2 (06:04→17:28)
[2016-10-12 06:50] LABS: HEMATOCRIT 28.8 % (37-47); MEAN CORPUSCULAR HEMOGLOBIN 32.2 pg (25-34); MEAN CORPUSCULAR HGB CONC 35.8 g/dl (32-36); MEAN PLATELET VOLUME 10.4 fL (7.4-10.4); PLATELET COUNT 316 K/uL (130-400); WHITE BLOOD COUNT 12.87 K/uL (4.8-10.8)
[2016-10-12 07:00] LABS: INR 1.2 (0.9-1.1); PARTIAL THROMBOPLASTIN RATIO 1.3; PROTHROMBIN TIME (PATIENT) 12.7 SECONDS (9.0-12.0)
[2016-10-12 07:24] LABS: ARTERIAL BLD GAS O2 SATURATION 95.6 % (90-95); ARTERIAL BLOOD GAS BASE EXCESS -0.5 mEq/L (-9-1.8); ARTERIAL BLOOD GAS HCO3 22 mmol/L (19-24); ARTERIAL BLOOD GAS PO2 78 mm/Hg (80-95); ARTERIAL BLOOD GAS pH 7.48 (7.35-7.45)
[2016-10-12 07:25] LABS: ALLEN TEST POS (POS); O2 ADMINISTRATION 15 L
[2016-10-12 07:28] LABS: BUN/CREATININE RATIO 13.6 (10-20); CALCIUM 7.7 mg/dl (8.5-10.1); CREATININE 1.9 mg/dl (0.60-1.20); POTASSIUM 3.4 mmol/L (3.5-5.1)
[2016-10-12] MEDS ORDERED: POTASSIUM CHLORIDE 20 MEQ TABCR PO STA (07:34)
[2016-10-12] MEDS: METOPROLOL TARTRATE 1 MG/ML VIAL IV PRN (07:42)
[2016-10-12] MEDS: DILTIAZEM HCL 30 MG TAB PO SCH (07:52)
[2016-10-12] MEDS: ASPIRIN 81 MG ECTAB PO SCH (07:53)
[2016-10-12] MEDS: DOCUSATE SODIUM 100 MG CAP PO SCH ×2 (07:53→20:24)
[2016-10-12] MEDS: GUAIFENESIN 600 MG TABCR PO SCH ×2 (07:54→20:28)
[2016-10-12] MEDS: METOPROLOL TARTRATE 25 MG TAB PO SCH (07:54)
[2016-10-12] MEDS: AMLODIPINE BESYLATE 5 MG TAB PO SCH (07:55)
[2016-10-12] MEDS ORDERED: HEPARIN IV BOLUS 5,000 UNIT in SYRINGE 0 ML IV ONE (08:45)
--- NOTE | 2016-10-12 10:17 | CARDIOLOGY CONSULTATION ---
DATE OF CONSULTATION: 10/12/2016 SUBJECTIVE: The patient is answering questions appropriately though is wearing oxygen supplementation. Heart rate and blood pressures are once again elevated this morning. There were no further bradyarrhythmias last night. The patient notes no productive cough. OBJECTIVE: VITAL SIGNS: Heart rate is 100 currently but it was as high as 130 earlier this morning prior to a.m. medications. O2 saturation is 91% on room air. Blood pressure this morning was 148/104. NECK: Thin. There is no distinct jugular venous distention. LUNGS: Reveal diminished breath sounds diffusely. CARDIOVASCULAR: Irregularly irregular. ABDOMEN: Soft, nontender. EXTREMITIES: Without cyanosis or clubbing. There is no peripheral edema. LABORATORY DATA: INR is 1.2. Sodium is 131, potassium is 3.4, chloride is 97, bicarbonate is 24, BUN is 26, creatinine is 1.9. IMPRESSION: An 89-year-old female admitted with acute respiratory illness, influenza A positive complicated by atrial fibrillation/flutter with intermittent rapid ventricular response rates. Treatments with IV diltiazem revealed intermittent bradyarrhythmias. PLAN: Given elevated heart rates this morning, will consider IV amiodarone . The patient remains on IV heparin and will be bridging to anticoagulation with Coumadin. Would hold diuresis further given worsening renal insufficiency. Chest x-ray ordered for today. MTDD
--- NOTE | 2016-10-12 10:32 | Clinical Documentation Query ---
DORA Lamb : CLINICAL DOCUMENTATION QUERY Early in the a.m. 10/11, nursing documentation outlines a scenario of labored breathing, hypoxemia, increasing O2 demands, with wheezing auscultated throughout all lung garcia. Patient was in atrial flutter with RVR at this time and was initiated on Cardizem infusion. She was also given IV Lasix. Noted to have a moist non-productive cough. Stat portable chest radiograph at this time read to include "mild interstitial pulmonary edema and small bilateral pleural effusions". Provider documentation included "pulmonary edema". If appropriate, please specify as suggested below as this directly impacts DRG assignment. Thank you. In your clinical opinion is this patient being managed for: ( + ) Acute pulmonary edema ( ) Other explanation of clinical findings (Please Explain) ( ) Unable to determine (Please Define) ( ) Need to Discuss ( ) Not Agree The medical record reflects the following clinical findings, treatment, and risk factors. Clinical Indicators: As above Treatment: IV Lasix, chest x-ray, Gray, I/O, nebs, Cardizem infusion, Lopressor Risk Factors: Atrial flutter with RVR, IVF administration, age. Please clarify and document your clinical opinion in the progress notes and discharge summary. Terms such as "probable", "suspected", "likely", "questionable", "possible", or "still to be ruled out" are acceptable. IF IN AGREEMENT, YOU MUST DOCUMENT ABOVE DIAGNOSTIC STATEMENT IN DAILY PROGRESS NOTES AND DISCHARGE SUMMARY. This document is not part of the patient's record. Thank You, Tyler Seals, RN [phone]
--- NOTE | 2016-10-12 10:40 | Progress Note ---
Internal Med Progress Note Date of Service: Oct 12, 2016. Provider Documentation: SUBJECTIVE: Patient continues to require ventimask to maintain sao2 > 90% (keeps removing it ). HR- back in Atrial Flutter with RVR- 120s Continues to have cough, unable to bring up sputum (unchanged). Denies chest pain, SOB, nausea, vomiting, abdominal pain, diarrhea, fever, chills Tele-Atrial Flutter with RVR 120s On ventimask - 90% OBJECTIVE : Vital Signs-as noted below Exam: General-AAOX2, no distress, not using accessory muscles of respiration Eyes-No icterus Neck-Supple, No JVD Lungs-AEBE decreased, coarse BS, rhonchi Heart-S1, S2 normal Abdomen-Soft, non tender, non distended, BS present Extremities-No edema Neuro-No focal deficits Lab data as noted below. ASSESSMENT & PLAN: Patient was sent in from PCP office for hyperglycemia, symptoms of cough/ weakness/diarrhea, noted to have GERMAINE/Hypokalemia on admission and admitted for further evaluation and rx. Influenza A came back positive, completed course of Laila flu and Azithromycin. Went into new onset Atrial flutter, difficult to control ate. Became hypoxic with sao2 dropping to 80s, now on ventimask. ACUTE HYPOXIC RESPIRATORY FAILURE : Worsening Went into hypoxia with SaO2 - 80s- 3 days after admission, now on ventimask and sao2 90% -Initially treated for pulmonary edema with IV lasix x 2 doses, but now not fluid overloaded, continues to have hypoxia. CXR- New medial right lung base opacity- post influenza pneumonia, need to consider staph. PE but already on heparin for atrial flutter. Other possibilities: Mucus plugging as sudden onset hypoxia and cough with inability to bring up sputum. -Will order CT scan chest when stabilizes, Venous duplex ordered, follow up cxr -No more lasix as creatinine worsening -ABGs- hypoxia + -Monitor closely ATRIAL FLUTTER WITH RVR (NEW ONSET) Patient went into A flutter for some time with HR 120s 10/08/16 and spontaneously converted to sinus rhythm. Again next day went into Atrial Flutter with RVR- fluctuating between A flutter RVR and NSR. Initially thought to be paroxysmal related to Influenza, but as persisted, was started on IV heparin/Coumadin No prior hx of A flutter, this is new onset. -Likely secondary to Influenza, GERMAINE, Hypokalemia -Increased Metoprolol to 75 mg PO BID on 10/09/16; Cardizem PO added by cardio on 10/09/16 -CHADS - 3. Discussed about daughter in law about anticoagulation given persistent Atrial Flutter- willing to help her with INR draws at labs as prior to admission she had a good active life for her age including ADLS, Driving, shopping. IV Heparin/Coumadin started on 10/09/16 -Echocardiogram- EF 60-65%, Moderate LVH, Mild MS, TSH - normal PLAN: Discussed with Dr Farias as continues to have A flutter with RVR. Hesitant about IV cardizem, Metoprolol given few sec sinus pause. Will start on IV Amiodarone to control HR per cardiology RIGHT MEDIAL LOBE PNEUMONIA -Post influenza pneumonia, so need to consider staph aureus -On IV Vanco/Zosyn (Day 2) -Blood cx x 2, Sputum cx- follow up -Mucinex BID, Spirometry, Flutter valve ordered. GERMAINE- Worsening Pre renal/Renal from viral illness Cr is 1.90 from baseline 0.9 Likely due to dehydration from recent viral illness initially--> IVF--> discontinued 10/10/16. Congestion --> Lasix IV 40 x 2 doses--> Held on 10/12/16 due to elevated creatinine -Hold losartan -Monitor renal function INFLUENZA A Symptoms are resolving -CXR- no infiltrate noted -On Azithromycin started as outpatient- completed the course -On Tamiflu- completed course DM-2 UNCONTROLLED: Underlying DM type 2 on oral meds; uncontrolled on last A1c in 07/2016 (10.0) Sent from Dr. Dominguez's office for elevated BSG to 400s; remains in 400s in ER Possibly elevated secondary to viral illness/Influenza -Hold diabetic medications. Insulin Lantus /ISS per pharmacy- appreciate inputs -[id number] -Diabetes education done -- willing to do insulin at home. 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 Discussed results with daughter and aware about this finding. HTN Continue amlodipine and metoprolol -Losartan and furosemide on hold for GERMAINE HYPERLIPIDEMIA -Continue statin DVT PROPHYLAXIS -Heparin SQ CODE STATUS -Full code per my discussion with the patient DISPOSITION PT./OT ordered - To be determined. Will likely benefit from rehab placement given prolonged hospitalization/illness Called daughter in law to update 10/08/16 and discussed about new onset atrial flutter, risk of stroke associated with it, new anticoagulation, insulin and need for closer monitoring for blood sugar levels, INR draws. Understands and agreeable to giving more support. Updated son on 10/10/16 Vital Signs: Date Time Temp Pulse Resp B/P Pulse Ox O2 Delivery O2 Flow Rate FiO2 10/12/16 07:42 131 148/104 10/12/16 07:41 134 32 148/104 91 Room Air 10/12/16 07:00 87 22 93 Venturi Mask 15.0 50 10/12/16 04:00 Non-Rebreather 10/12/16 03:23 84 24 93 Venturi Mask 15.0 50 10/12/16 03:14 36.9 85 23 126/57 93 Venturi Mask 10/12/16 00:01 68 24 94 Venturi Mask 15.0 50 10/11/16 23:59 Non-Rebreather 10/11/16 23:40 36.8 78 20 126/58 93 Venturi Mask 15.0 50 10/11/16 20:19 83 22 98 Non-Rebreather 15.0 10/11/16 20:00 Non-Rebreather 10/11/16 19:34 36.6 78 20 140/53 97 Non-Rebreather 15.0 10/11/16 16:33 36.5 85 22 143/80 89 Nasal Cannula 6.0 10/11/16 16:00 98 Non-Rebreather 15.0 10/11/16 15:14 84 24 87 Nasal Cannula 6.0 10/11/16 12:00 91 Nasal Cannula 6.0 10/11/16 11:47 36.9 117 22 106/75 91 Nasal Cannula 6.0 10/11/16 11:09 111 24 92 Venturi Mask 15.0 Lab Results: Results Past 24 Hours Test 10/11/16 10:53 10/11/16 10:59 10/11/16 16:30 10/11/16 20:30 Range/Units Arterial Blood pH 7.48 7.35-7.45 Arterial Blood Partial Pressure CO2 28 35-46 mmHg Arterial Blood Partial Pressure O2 54 80-95 mm/Hg Arterial Blood HCO3 21 19-24 mmol/L Arterial Blood Oxygen Saturation 88.7 90-95 % Arterial Blood Base Excess -1.9 -9-1.8 mEq/L Arterial Blood Gas Delivery 15L Teodoro Test POS POS Bedside Glucose 293 451 439 70-90 mg/dl Test 10/11/16 23:45 10/12/16 03:18 10/12/16 06:26 10/12/16 06:39 Range/Units Bedside Glucose 290 181 172 70-90 mg/dl White Blood Count 12.87 4.8-10.8 K/uL Red Blood Count 3.20 4.2-5.4 M/uL Hemoglobin 10.3 12.0-16.0 g/dL Hematocrit 28.8 37-47 % Mean Corpuscular Volume 90.0 80-100 fL Mean Corpuscular Hemoglobin 32.2 25-34 pg Mean Corpuscular Hemoglobin Concent 35.8 32-36 g/dl RDW Standard Deviation 38.6 36.4-46.3 fL RDW Coefficient of Variation 11.6 11.5-14.5 % Platelet Count 316 130-400 K/uL Mean Platelet Volume 10.4 7.4-10.4 fL Prothrombin Time 12.7 9.0-12.0 SECONDS Prothromb Time International Ratio 1.2 0.9-1.1 Activated Partial Thromboplast Time 34.5 21.0-31.0 SECONDS Partial Thromboplastin Ratio 1.3 Sodium Level 131 136-145 mmol/L Potassium Level 3.4 3.5-5.1 mmol/L Chloride Level 97 98-107 mmol/L Carbon Dioxide Level 24 21-32 mmol/L Anion Gap 10.0 3-11 mmol/L Blood Urea Nitrogen 26 7-18 mg/dl Creatinine 1.90 0.60-1.20 mg/dl Est Creatinine Clear Calc Drug Dose 18.4 ml/min Estimated GFR () 26.8 Estimated GFR (Non- 23.1 BUN/Creatinine Ratio 13.6 10-20 Random Glucose 157 70-99 mg/dl Calcium Level 7.7 8.5-10.1 mg/dl Random Vancomycin Level 14.7 mcg/ml Test 10/12/16 07:11 Range/Units Arterial Blood pH 7.48 7.35-7.45 Arterial Blood Partial Pressure CO2 31 35-46 mmHg Arterial Blood Partial Pressure O2 78 80-95 mm/Hg Arterial Blood HCO3 22 19-24 mmol/L Arterial Blood Oxygen Saturation 95.6 90-95 % Arterial Blood Base Excess -0.5 -9-1.8 mEq/L Arterial Blood Gas Delivery 15 L Teodoro Test POS POS
[2016-10-12] MEDS ORDERED: AMIODARONE IV BOLUS / DRIP IV STA (10:49)
[2016-10-12] MEDS ORDERED: AMIODARONE / D5W 100 ML IV SCH (11:00)
[2016-10-12] MEDS ORDERED: AMIODARONE / D5W 200 ML IV SCH (11:10)
--- NOTE | 2016-10-12 11:18 | DIAGNOSTIC IMAGING REPORT ---
CHEST ONE VIEW PORTABLE CLINICAL HISTORY: Shortness of breath COMPARISON STUDY: 10/11/2016 FINDINGS: The heart is enlarged. There is radiographic evidence of congestive failure with bilateral pleural effusions. There are bibasal airspace opacities. A coexistent inflammatory process cannot be excluded. IMPRESSION: 1. Persistent congestive failure with bilateral pleural effusions 2. Nonspecific bibasilar pulmonary airspace opacities. Edema versus a coexistent pneumonia. Continued radiographic follow-up is recommended Electronically signed by: Satinder Strauss M.D. 10/12/2016 11:16 AM
--- NOTE | 2016-10-12 11:19 | PROGRESS NOTE ---
DATE: 10/12/2016 Patient reevaluated after x-ray which demonstrates right volume basilar volume loss. No overt pulmonary edema. Heart rates remain elevated. The patient is requiring Venturi mask for chronic hypoxia. Discussed with Dr. Schmid. PLAN: Will attempt to treat heart rate with IV amiodarone beginning with IV bolus and drip. Will hold diltiazem and metoprolol given bradyarrhythmia recently documented though patient will likely require addition back at least low dose beta dixon for heart rate control initially. No signs of heart failure by examination though patient at risk given past history of hypertensive heart disease. Will titrate nitrates higher for blood pressure control.
--- NOTE | 2016-10-12 11:35 | DIAGNOSTIC IMAGING REPORT ---
ULTRASOUND VENOUS DOPPLER LWR EXT BILA CLINICAL HISTORY: Leg swelling COMPARISON STUDY: No previous studies for comparison. FINDINGS: Real-time and color flow Doppler imaging were performed. Flow was seen within the femoral, popliteal and calf veins with no intraluminal thrombus demonstrated. The saphenous vein is patent. The study was difficult from a technical standpoint secondary to lack of OPTIMAL patient tolerance of compression. IMPRESSION: No evidence of lower extremity DVT. Electronically signed by: Satinder Strauss M.D. 10/12/2016 11:34 AM
--- NOTE | 2016-10-12 11:45 | Pharmacy Progress Note ---
Glycemic Control: Progress Nt Date of Service Oct 12, 2016. Scope Glycemic Pharmacist consulted by Dr Jalil Schmid on 10/08/16 for glycemic control and to write orders per [facility] inpatient glycemic control protocol. Objective Accuchecks BSG (last 24hrs): Test 10/11/16 16:30 10/11/16 20:30 10/11/16 23:45 10/12/16 03:18 Bedside Glucose 451 mg/dl (70-90) 439 mg/dl (70-90) 290 mg/dl (70-90) 181 mg/dl (70-90) Test 10/12/16 06:26 10/12/16 06:39 10/12/16 11:26 Random Glucose 157 mg/dl (70-99) Bedside Glucose 172 mg/dl (70-90) 197 mg/dl (70-90) Laboratory Data (last 24hrs) Test 10/12/16 06:26 Anion Gap 10.0 mmol/L BUN/Creatinine Ratio 13.6 Blood Urea Nitrogen 26 mg/dl Creatinine 1.90 mg/dl Potassium Level 3.4 mmol/L Sodium Level 131 mmol/L White Blood Count 12.87 K/uL HbA1c: Test 10/07/16 05:15 Hemoglobin A1c 12.7 % (4.5-5.6) H Recent Pertinent Medications Outpatient Anti-diabetic Regimen: * Glimepiride 4mg PO daily * Sitagliptin 100mg PO daily * A1c = 12.7 % 10/07/16 The patient is currently receiving: * Basal insulin: Lantus 13 units SQ Q HS; but also received an additional 4 units last evening for a total of 17 units * Correctional Insulin: Novolog Correction per scale ACHS and at 0000 + 0400 Goal Range: Low 120 mg/dL - High 160 mg/dL Correction Factor: 25 mg/dL/unit * Prandial insulin: Per carb ratio of 1 unit per 11 grams CHO consumed * Oral Agents: None currently Risk Factors for Insulin Resistance: * Infection: receiving Zosyn + Vancomycin * IVF: multiple drips mixed in D5W: amiodarone, heparin, diltiazem * Diet: ordered T2DM / AHA diet; PO intake somewhat erratic yesterday * Mechanical Ventilation: n/a; however requiring Venti Mask and FiO2 50% to maintain sats in low 90's Assessment & Plan ASSESSMENT: 10/12/16: * It has been difficult to achieve our glycemic targets in this patient * BSGs are improved this AM (170-180's) after running in the 400's the second half of the day yesterday. * Each day she seems to require more insulin 32 units/day (10/09), 42 units/day (10/10) and 66 units/day (10/11) * Upon review of records it seems like hyperglycemia worsened with the initiation of multiple dextrose containing infusions. I also suspect that the Lantus dose she is receiving in the evenings is not providing a full 24 hrs of effect as the BSGs at dinner and HS are routinely elevated. Will increase the Lantus dose today but split the dose BID to see if this helps. * The elevated BSGs the second half of the day may also be due to inadequate prandial insulin. The prandial dose was increased slightly yesterday. Will make a slight increase again today. PLAN FOR INPATIENT GLYCEMIC CONTROL: * Increasing Lantus to 9 units SQ BID (18 units/day) * Continuing correction factor of 25 mg/dl/unit * Changing carb ratio to 1 unit per 10 grams CHO consumed * Continuing goal range of Low 120 mg/dL - High 160 mg/dL * Change overnight BSG check to a single check at 0200 tonight to allow for less interruption of sleep. Would ultimately like to resume ACHS coverage only. RECOMMENDATIONS FOR DISCHARGE: * * Please note that the plan above was derived based on current level of insulin resistance and hospital stress. These recommendations are appropriate for inpatient admission only. Plan of care upon discharge will need to be reassessed to avoid potential outpatient hypo/hyperglycemia. Thank you.
[2016-10-12] MEDS ORDERED: INSULIN GLARGINE SOLOSTAR 100 UNITS/ML 3 ML PEN SC ONE (12:00)
--- NOTE | 2016-10-12 12:20 | Pharmacy Progress Note ---
Pharmacy Antibiotic Prog Note Date of Service: Oct 12, 2016. Subjective: The patient is currently receiving Vanco/Zosyn The patient is currently on day # 2 of Vanco/Zosyn IV therapy. Objective: Height (Feet): 5 Height (Inches): 5.00 Weight (Kilograms): 67.000 Levels: Item Value Date Time Random Vancomycin Level 14.7 mcg/ml 10/12/16 0626 Lab Results (24hrs): Laboratory Tests Test 10/12/16 06:26 BUN/Creatinine Ratio 13.6 Blood Urea Nitrogen 26 mg/dl Creatinine 1.90 mg/dl White Blood Count 12.87 K/uL Micro Results: Item Value Date Time Urine Culture - Final Complete 10/06/16 1740 Urine , Clean Catch MORE THAN THREE TYPES OF ORGANISMS DE... Blood Culture - Final Complete 10/06/16 1720 Blood NO GROWTH Blood Culture - Final Complete 10/06/16 1708 Blood NO GROWTH Assessment & Plan: Pt is an 89yo M p/w possible PNA. BC are both negative, I have ordered a MRSA nasal swab to help r/o MRSA PNA. Pt's renal fxn has declined: eCrCl=18cc/min. Yesterday was 22cc/min. Pt population p'kinetics: t1/2=35hrs, ke=0.0193. On pt voided roughly 2L of urine. Vanco: This drug level is : subtherapeutic Change to Vanco 750mg IV PRN 2/2 to poor renal fxn Goal trough level estimate: between 15 - 20 mcg/mL. Random level has been ordered for: to ensure pt is within goal range and not accumulating Vanco Zosyn: 3.375g q12h EI appropriate for pt's clinical picture and eCrCL<20cc/min Pharmacy will continue to follow and will adjust dose/frequency as necessary. Thank you
[2016-10-12] MEDS ORDERED: VANCOMYCIN INJ 750 MG in SODIUM CHLORIDE 0.9% 250ML 250 ML IV ONE (13:00)
[2016-10-12] MEDS ORDERED: METOPROLOL TARTRATE 25 MG TAB PO SCH (14:00)
[2016-10-12 14:57] LABS: PARTIAL THROMBOPLASTIN RATIO 2.8
--- NOTE | 2016-10-12 16:27 | DIAGNOSTIC IMAGING REPORT ---
CT OF THE CHEST WITHOUT IV CONTRAST CLINICAL HISTORY: Worsening acute hypoxic respiratory failure. Pneumonia. COMPARISON STUDY: Chest radiographs October 11, 2016 and October 12, 2016. CT DOSE: 271.15 mGy.cm TECHNIQUE: Axial images of the chest were obtained without IV contrast. Images were reviewed in the axial, sagittal, and coronal planes. IV contrast was not administered for this examination. FINDINGS: No enlarged axillary, mediastinal or hilar lymph nodes are present. There is pectus excavatum deformity. There are post surgical findings within the left breast. Moderate right and small left pleural effusions are present. Associated lower lobe opacities favor atelectasis with volume loss. Pneumonia would be difficult to exclude. There is no pneumothorax. Interlobular septal thickening suggest pulmonary edema. Subpleural opacities within the left upper lobe may be related to prior radiation therapy. The bony thorax is otherwise unremarkable. The upper abdomen is unremarkable on this unenhanced exam. The heart is moderately enlarged. IMPRESSION: 1. Moderate right and small left pleural effusions. Extensive associated lower lobe opacities likely reflect atelectasis. Pneumonia could appear similar but is considered less likely. 2. Mild pulmonary edema. 3. Moderate cardiomegaly and extensive coronary artery calcification. Electronically signed by: Mark Olmos M.D. 10/12/2016 4:26 PM
[2016-10-12] MEDS: WARFARIN SOD 5 MG TAB PO SCH (16:35)
[2016-10-12] MEDS: AMIODARONE / D5W 200 ML IV SCH (17:28)
[2016-10-12] MEDS: ATORVASTATIN 40 MG TAB PO SCH (20:28)
[2016-10-12] MEDS: INSULIN GLARGINE SOLOSTAR 100 UNITS/ML 3 ML PEN SC SCH (20:30)
[2016-10-12] MEDS ORDERED: INSULIN GLARGINE SOLOSTAR 100 UNITS/ML 3 ML PEN SC SCH (21:00)
[2016-10-12 22:06] LABS: PARTIAL THROMBOPLASTIN RATIO 2.6
[2016-10-13] VITALS (13 sets, daily range): BP systolic 138–172; BP diastolic 62–91; PULSE 81–104; TEMP 36.5–36.9; O2SAT 92–96; BMI 25.8
[2016-10-13] MEDS: ALPRAZOLAM 0.25 MG TAB PO PRN ×2 (00:05→23:40)
[2016-10-13] MEDS: HEPARIN 25,000 UNIT/500ML D5W 500 ML IV PRN ×3 (01:06→23:41)
[2016-10-13] MEDS ORDERED: INSULIN ASPART 100 UNITS/ML 3 ML PEN SC ONE (02:00)
[2016-10-13 04:04] LABS: HEMATOCRIT 27.1 % (37-47); MEAN CELL VOLUME 89.4 fL (80-100); MEAN CORPUSCULAR HEMOGLOBIN 32.3 pg (25-34); MEAN CORPUSCULAR HGB CONC 36.2 g/dl (32-36); MEAN PLATELET VOLUME 9.8 fL (7.4-10.4); PLATELET COUNT 327 K/uL (130-400); RED BLOOD COUNT 3.03 M/uL (4.2-5.4)
[2016-10-13 04:21] LABS: BUN/CREATININE RATIO 13.4 (10-20); CREATININE 1.9 mg/dl (0.60-1.20); POTASSIUM 3.7 mmol/L (3.5-5.1)
[2016-10-13 04:35] LABS: PARTIAL THROMBOPLASTIN RATIO 2.8
[2016-10-13] MEDS: AMIODARONE / D5W 200 ML IV SCH ×2 (05:38→16:10)
[2016-10-13] MEDS: PIPERACILL/TAZOBAC IV 3.375 GM in DEXTROSE 5% 100ML 100 ML IV SCH (05:38)
[2016-10-13] MEDS: NITROGLYCERIN OINT 2% 1GM PACKET EXT SCH ×4 (05:42→23:34)
[2016-10-13] MEDS: IPRATROPIUM BROMIDE NEB SOLN 0.02% 2.5 ML VIAL INH SCH ×5 (07:46→23:21)
[2016-10-13] MEDS: LEVALBUTEROL 1.25MG/0.5ML NEB INH SCH ×5 (07:46→23:21)
[2016-10-13] MEDS: ASPIRIN 81 MG ECTAB PO SCH (07:49)
[2016-10-13] MEDS: DOCUSATE SODIUM 100 MG CAP PO SCH ×2 (07:49→20:13)
[2016-10-13] MEDS: AMLODIPINE BESYLATE 5 MG TAB PO SCH (07:49)
[2016-10-13] MEDS: GUAIFENESIN 600 MG TABCR PO SCH ×2 (07:50→20:37)
[2016-10-13] MEDS: INSULIN ASPART 100 UNITS/ML 3 ML PEN SC SCH ×4 (07:53→20:37)
[2016-10-13] MEDS: INSULIN GLARGINE SOLOSTAR 100 UNITS/ML 3 ML PEN SC SCH ×2 (07:54→20:36)
--- NOTE | 2016-10-13 10:08 | PROGRESS NOTE ---
DATE: 10/13/2016 The patient seen and examined. Chart, medications, telemetry reviewed. SUBJECTIVE: The patient is still breathless with minimal movement in bed, has a coarse wheeze. Heart rate has slowed as the patient converted spontaneously to sinus rhythm throughout the night. She notes no focal complaints other than cough this morning. OBJECTIVE: VITAL SIGNS: Heart rate is 96, blood pressure is 160/71, and O2 saturations 95% on 6 liters. NECK: Thin. There is no distinct jugular venous distention. LUNGS: Reveal wheezes with cough. Diminished breath sounds at the right base. CARDIOVASCULAR: Regular. There is no S3 gallop. ABDOMEN: Soft. EXTREMITIES: Without cyanosis or clubbing. There is no edema. LABORATORY DATA: Sodium is 131, potassium is 3.7, chloride 97, bicarbonate is 22, BUN is 26, and creatinine is 1.9. White cell count is 13.9, hemoglobin is 9.8. IMPRESSION: Complex 89-year-old female presented with worsening respiratory distress influenza A complicated by atrial fibrillation/flutter with rapid ventricular response. She now has responded to IV amiodarone with conversion to sinus rhythm spontaneously. RECOMMENDATIONS: Continue anticoagulation with IV heparin. INR will be ordered for today. She will be checked daily on warfarin, especially in the use of amiodarone which will potentiate warfarin therapy. We will supplement potassium. Ultimate goal potassium greater than 4. Continue antihypertensive therapies. Plan on switching amiodarone to oral in a.m. after IV load.
--- NOTE | 2016-10-13 11:31 | Progress Note ---
Internal Med Progress Note Date of Service: Oct 13, 2016. Provider Documentation: SUBJECTIVE: Patient is marginally better. On 6 L- 95% HR- back to NSR with controlled rate Continues to have cough, unable to bring up sputum (unchanged). Denies chest pain, SOB, nausea, vomiting, abdominal pain, diarrhea, fever, chills Tele-NSR with HR in 80s On 6 L oxygen - 95% OBJECTIVE : Vital Signs-as noted below Exam: General-AAOX2, no distress, not using accessory muscles of respiration Eyes-No icterus Neck-Supple, No JVD Lungs-AEBE decreased, coarse BS, rhonchi Heart-S1, S2 normal Abdomen-Soft, non tender, non distended, BS present Extremities-No edema Neuro-No focal deficits Lab data as noted below. ASSESSMENT & PLAN: Patient was sent in from PCP office for hyperglycemia, symptoms of cough/ weakness/diarrhea, noted to have GERMAINE/Hypokalemia on admission and admitted for further evaluation and rx. Influenza A came back positive, completed course of Laila flu and Azithromycin. Went into new onset Atrial flutter, difficult to control ate. Became hypoxic with sao2 dropping to 80s, now on ventimask. ACUTE HYPOXIC RESPIRATORY FAILURE : Marginal improvement Went into hypoxia with SaO2 - 80s- 3 days after admission, S/P Ventimask --> 95 % on 6 L -Initially treated for ACUTE PULMONARY EDEMA with IV lasix x 2 doses, but not fluid overloaded, continues to have hypoxia. CXR - New medial right lung base opacity- WITH POSSIBLE POST INFLUENZA PNEUMONIA, need to consider staph. PE but already on heparin for atrial flutter. Other possibilities: Mucus plugging as sudden onset hypoxia and cough with inability to bring up sputum. ATELECTASIS + -CT scan chest- B/L Pleural effusion-Right mod, left small, Mild pulm edema, less likely pneumonia, atelectasis -No more lasix as creatinine worsening -ABGs- hypoxia + -Monitor closely ATRIAL FLUTTER WITH RVR (NEW ONSET) : Patient went into A flutter for some time with HR 120s 10/08/16 and spontaneously converted to sinus rhythm. Again next day went into Atrial Flutter with RVR- fluctuating between A flutter RVR and NSR. Initially thought to be paroxysmal related to Influenza, but as persisted, was started on IV heparin/Coumadin No prior hx of A flutter, this is new onset. -Likely secondary to Influenza, GERMAINE, Hypokalemia -S/P Metoprolol/Cardizem PO --> On IV Amiodarone drip since 10/12/26 --> converted to NSR -CHADS - 3. Discussed about daughter in law about anticoagulation given persistent Atrial Flutter- willing to help her with INR draws at labs as prior to admission she had a good active life for her age including ADLS, Driving, shopping. IV Heparin/Coumadin started on 10/09/16. -Echocardiogram- EF 60-65%, Moderate LVH, Mild MS, TSH - normal POSSIBLE RIGHT MEDIAL LOBE PNEUMONIA -CXR initially showed right medial lobe pneumonia, CT scan chest shows pneumonia less likely -On IV Vanco/Zosyn (Day 2)--> discontinue and change to Doxycycline (12/22) -Blood cx x 2- Neg, Sputum cx-cant bring up -Mucinex BID, Spirometry, Flutter valve ordered. GERMAINE- Worsening Pre renal/Renal from viral illness Cr is 1.90 from baseline 0.9 Likely due to dehydration from recent viral illness initially--> IVF--> discontinued 10/10/16. Congestion --> Lasix IV 40 x 2 doses--> Held on 10/12/16 due to elevated creatinine -Hold losartan -Monitor renal function INFLUENZA A Symptoms are resolving -CXR- no infiltrate noted -On Azithromycin started as outpatient- completed the course -On Tamiflu- completed course DM-2 UNCONTROLLED: Underlying DM type 2 on oral meds; uncontrolled on last A1c in 07/2016 (10.0) Sent from Dr. Dominguez's office for elevated BSG to 400s; remains in 400s in ER Possibly elevated secondary to viral illness/Influenza -Hold diabetic medications. Insulin Lantus /ISS per pharmacy- appreciate inputs -[id number] -Diabetes education done -- willing to do insulin at home. 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 Discussed results with daughter and aware about this finding. HTN Continue amlodipine and metoprolol -Losartan and furosemide on hold for GERMAINE HYPERLIPIDEMIA -Continue statin DVT PROPHYLAXIS -Heparin SQ CODE STATUS -Full code per my discussion with the patient DISPOSITION PT./OT ordered - To be determined. Will likely benefit from rehab placement given prolonged hospitalization/illness. Called daughter in law to update 10/08/16 and discussed about new onset atrial flutter, risk of stroke associated with it, new anticoagulation, insulin and need for closer monitoring for blood sugar levels, INR draws. Understands and agreeable to giving more support. Updated son on 10/10/16, 10/12/16. Motivated to ambulate and participate more in PT/OT Vital Signs: Date Time Temp Pulse Resp B/P Pulse Ox O2 Delivery O2 Flow Rate FiO2 10/13/16 11:15 93 18 92 Nasal Cannula 4.0 10/13/16 07:39 96 22 95 Nasal Cannula 6.0 10/13/16 07:25 36.9 96 20 160/71 96 Nasal Cannula 6.0 10/13/16 04:02 Nasal Cannula 6.0 10/13/16 03:36 36.9 91 27 151/91 95 Nasal Cannula 6.0 10/13/16 01:49 93 26 157/64 96 Nasal Cannula 6.0 10/13/16 00:02 Nasal Cannula 6.0 10/13/16 00:00 36.8 103 33 172/70 96 Nasal Cannula 6.0 10/12/16 23:37 97 24 89 Nasal Cannula 6.0 10/12/16 20:04 Nasal Cannula 6.0 10/12/16 19:09 36.8 90 22 183/81 95 6.0 10/12/16 18:58 88 24 92 Nasal Cannula 6.0 10/12/16 17:59 92 35 156/83 95 Nasal Cannula 10/12/16 16:59 93 35 160/97 91 Nasal Cannula 6.0 10/12/16 16:00 Nasal Cannula 6.0 Venturi Mask 10/12/16 15:36 79 24 95 Venturi Mask 15.0 50 10/12/16 15:00 80 24 153/44 96 Venturi Mask 15.0 10/12/16 14:13 90 37 108/66 91 Venturi Mask 15.0 10/12/16 13:59 91 33 147/81 91 Venturi Mask 15.0 10/12/16 12:59 120 35 139/66 90 Venturi Mask 15.0 10/12/16 12:00 Venturi Mask 50 10/12/16 11:59 110 42 137/85 Venturi Mask 15.0 10/12/16 11:50 36.7 105 30 137/85 90 Venturi Mask 15.0 10/12/16 11:30 121 36 123/80 91 Lab Results: Results Past 24 Hours Test 10/12/16 11:26 10/12/16 14:29 10/12/16 16:12 10/12/16 20:04 Range/Units Bedside Glucose 197 323 298 70-90 mg/dl Activated Partial Thromboplast Time 73.7 21.0-31.0 SECONDS Partial Thromboplastin Ratio 2.8 Test 10/12/16 21:35 10/13/16 01:49 10/13/16 03:50 10/13/16 06:43 Range/Units Activated Partial Thromboplast Time 67.1 71.6 21.0-31.0 SECONDS Partial Thromboplastin Ratio 2.6 2.8 Bedside Glucose 254 239 70-90 mg/dl White Blood Count 13.90 4.8-10.8 K/uL Red Blood Count 3.03 4.2-5.4 M/uL Hemoglobin 9.8 12.0-16.0 g/dL Hematocrit 27.1 37-47 % Mean Corpuscular Volume 89.4 80-100 fL Mean Corpuscular Hemoglobin 32.3 25-34 pg Mean Corpuscular Hemoglobin Concent 36.2 32-36 g/dl RDW Standard Deviation 38.6 36.4-46.3 fL RDW Coefficient of Variation 11.8 11.5-14.5 % Platelet Count 327 130-400 K/uL Mean Platelet Volume 9.8 7.4-10.4 fL Sodium Level 131 136-145 mmol/L Potassium Level 3.7 3.5-5.1 mmol/L Chloride Level 97 98-107 mmol/L Carbon Dioxide Level 22 21-32 mmol/L Anion Gap 12.0 3-11 mmol/L Blood Urea Nitrogen 26 7-18 mg/dl Creatinine 1.90 0.60-1.20 mg/dl Est Creatinine Clear Calc Drug Dose 18.4 ml/min Estimated GFR () 26.8 Estimated GFR (Non- 23.1 BUN/Creatinine Ratio 13.4 10-20 Random Glucose 217 70-99 mg/dl Calcium Level 8.0 8.5-10.1 mg/dl Random Vancomycin Level 16.0 mcg/ml Test 10/13/16 11:05 Range/Units
[2016-10-13 11:45] LABS: PARTIAL THROMBOPLASTIN RATIO 2.2
[2016-10-13] MEDS ORDERED: INSULIN GLARGINE SOLOSTAR 100 UNITS/ML 3 ML PEN SC ONE (14:45)
--- NOTE | 2016-10-13 14:47 | Pharmacy Progress Note ---
Glycemic: Assessment & Plan Date of Service Oct 13, 2016. Assessment & Plan Outpatient Anti-diabetic Regimen: * Glimepiride 4mg PO daily * Sitagliptin 100mg PO daily * A1c = 12.7 % 10/07/16 ASSESSMENT: 10/13/16: * Patient continues to be hyperglycemic despite changes made yesterday. * Will give extra dose of Lantus this afternoon and also tighten carb coverage today. * Will continue to adjust regimen until BSGs controlled. 10/12/16 * It has been difficult to achieve our glycemic targets in this patient * BSGs are improved this AM (170-180's) after running in the 400's the second half of the day yesterday. * Each day she seems to require more insulin 32 units/day (10/09), 42 units/day (10/10) and 66 units/day (10/11) * Upon review of records it seems like hyperglycemia worsened with the initiation of multiple dextrose containing infusions. I also suspect that the Lantus dose she is receiving in the evenings is not providing a full 24 hrs of effect as the BSGs at dinner and HS are routinely elevated. Will increase the Lantus dose today but split the dose BID to see if this helps. * The elevated BSGs the second half of the day may also be due to inadequate prandial insulin. The prandial dose was increased slightly yesterday. Will make a slight increase again today. PLAN FOR INPATIENT GLYCEMIC CONTROL: * Continue Lantus to 9 units SQ BID * Give extra dose of Lantus 5 units x1 dose at 1500 * Continuing correction factor of 25 mg/dl/unit * Tighten carb ratio to 1 unit per 8 grams CHO consumed * Continuing goal range of Low 120 mg/dL - High 160 mg/dL * BSG check at 0200 tonight to provide additional coverage and interrupt sleep minimally. Would ultimately like to resume ACHS coverage only. * Please note that the plan above was derived based on current level of insulin resistance and hospital stress. These recommendations are appropriate for inpatient admission only. Plan of care upon discharge will need to be reassessed to avoid potential outpatient hypo/hyperglycemia. Thank you.
[2016-10-13] MEDS ORDERED: WARFARIN SOD 7.5 MG TAB PO SCH (16:00)
[2016-10-13] MEDS: DOXYCYCLINE HYCLATE 100 MG CAP PO SCH (20:37)
[2016-10-13] MEDS: ATORVASTATIN 40 MG TAB PO SCH (20:37)
[2016-10-13] MEDS: METOPROLOL TARTRATE 1 MG/ML VIAL IV PRN ×2 (20:48→22:43)
[2016-10-13] MEDS ORDERED: METOPROLOL TARTRATE 25 MG TAB PO ONE (22:42)
[2016-10-13] MEDS ORDERED: METOPROLOL TARTRATE 1 MG/ML VIAL IV STA (22:46)
--- NOTE | 2016-10-13 22:50 | PROGRESS NOTE ---
DATE: 10/13/2016 HISTORY OF PRESENT ILLNESS: The patient seen and examined. Telemetry this evening demonstrates the patient had lapsed back into atrial fibrillation with rapid ventricular response, rates as high as 140. She received p.r.n. medications IV metoprolol 5 mg for slowing the heart rate. She is once again starting to accelerate heart rates 120s-130s. PLAN: Current examination reveals adequate blood pressures, no pulmonary edema. We will give an additional 5 mg IV metoprolol and reinstitute oral metoprolol in addition to amiodarone IV for rate control. She remains on anticoagulants with IV heparin.
[2016-10-14] VITALS (7 sets, daily range): BP systolic 124–139; BP diastolic 59–80; PULSE 73–88; TEMP 36.4–36.9; O2SAT 92–97; Ht 165.1 cm; Wt 70.0 kg
[2016-10-14] MEDS ORDERED: INSULIN ASPART 100 UNITS/ML 3 ML PEN SC SCH (02:00)
[2016-10-14] MEDS: AMIODARONE / D5W 200 ML IV SCH ×2 (03:05→15:14)
[2016-10-14] MEDS: IPRATROPIUM BROMIDE NEB SOLN 0.02% 2.5 ML VIAL INH SCH ×2 (04:00→07:09)
[2016-10-14] MEDS: LEVALBUTEROL 1.25MG/0.5ML NEB INH SCH ×2 (04:00→07:09)
[2016-10-14] MEDS ORDERED: METOPROLOL TARTRATE 25 MG TAB PO SCH (06:00)
[2016-10-14] MEDS: NITROGLYCERIN OINT 2% 1GM PACKET EXT SCH ×3 (06:09→18:05)
[2016-10-14 06:56] LABS: INR 1.8 (0.9-1.1); PARTIAL THROMBOPLASTIN RATIO 2.5; PROTHROMBIN TIME (PATIENT) 19.4 SECONDS (9.0-12.0)
[2016-10-14] MEDS: INSULIN ASPART 100 UNITS/ML 3 ML PEN SC SCH ×4 (07:00→20:29)
[2016-10-14] MEDS: DOCUSATE SODIUM 100 MG CAP PO SCH ×2 (09:00→20:22)
[2016-10-14] MEDS: ASPIRIN 81 MG ECTAB PO SCH (09:15)
[2016-10-14] MEDS: DOXYCYCLINE HYCLATE 100 MG CAP PO SCH ×2 (09:15→20:23)
[2016-10-14] MEDS: GUAIFENESIN 600 MG TABCR PO SCH ×2 (09:15→20:23)
[2016-10-14] MEDS: AMLODIPINE BESYLATE 5 MG TAB PO SCH (09:17)
[2016-10-14] MEDS: INSULIN GLARGINE SOLOSTAR 100 UNITS/ML 3 ML PEN SC SCH ×2 (09:17→20:29)
[2016-10-14] MEDS ORDERED: METOPROLOL SUCC 25MG EXT REL TAB PO ONE (09:31)
[2016-10-14 10:23] LABS: CREATININE 1.7 mg/dl (0.60-1.20)
--- NOTE | 2016-10-14 11:22 | CARDIOLOGY PROGRESS NOTE ---
DATE: 10/14/2016 The patient seen and examined. Chart, medications, telemetry reviewed. SUBJECTIVE: The patient last evening lapsed into atrial fibrillation, then converted with IV metoprolol x2. Maintained sinus rhythm throughout the night. Early this morning; however, once again has returned atrial fibrillation with elevated ventricular response rates 88-110. She notes pulmonary status is gradually improving. Still has a very loose rhonchorous cough. Notes no dizziness, lightheadedness, syncope or near syncope. Notes no sputum production. Notes no bleeding difficulties. She remains on anticoagulation with IV heparin, as well as on IV amiodarone. OBJECTIVE: VITAL SIGNS: Heart rate is 88, blood pressure is 138/67. NECK: Thin. There is no distinct jugular venous distention. LUNGS: Reveal coarse wheezes and rhonchorous sound, right greater than left, with forced cough on expiration. CARDIOVASCULAR: Irregular, irregular. There is no S3 gallop. ABDOMEN: Soft, nontender. EXTREMITIES: Without cyanosis or clubbing. There is tenderness of the right ankle and arch to palpation. DATA: INR is 1.8. PTT 66.1. Electrolytes are pending from today. Creatinine this morning is 1.7, down from 1.9 day prior. I's and O's are stable and equal. IMPRESSION: An 89-year-old female presented with acute respiratory distress secondary to influenza A, complicated by atrial fibrillation flutter with rapid ventricular response. The patient is demonstrating slight improvement from a pulmonary status with less oxygen demands. She remains intermittently in atrial fibrillation despite IV amiodarone. EKG demonstrates mild QT prolongation this morning, as well as progressive interventricular conduction delay, though no bradyarrhythmias were observed. Plan will be to change metoprolol short acting to long acting once again at 25 mg b.i.d. This may potentially be increased. Will continue IV amiodarone throughout the day. Will likely convert to oral depending on clinical course. Electrolytes will be reviewed. The patient making slow, but gradual progress.
[2016-10-14 11:26] LABS: BUN/CREATININE RATIO 15.1 (10-20); POTASSIUM 3.8 mmol/L (3.5-5.1)
[2016-10-14 11:28] LABS: CALCIUM 8.2 mg/dl (8.5-10.1)
--- NOTE | 2016-10-14 12:27 | Progress Note ---
Internal Med Progress Note Date of Service: Oct 14, 2016. Provider Documentation: SUBJECTIVE: Patient is doing better today. Continues to have cough, unable to bring up sputum (unchanged). Denies chest pain, SOB, nausea, vomiting, abdominal pain, diarrhea, fever, chills Tele-Fluctuates between NSR and A fib On 3 L oxygen - 95% OBJECTIVE : Vital Signs-as noted below Exam: General-AAOX2, no distress, not using accessory muscles of respiration Eyes-No icterus Neck-Supple, No JVD Lungs-AEBE decreased, coarse BS, rhonchi Heart-S1, S2 normal Abdomen-Soft, non tender, non distended, BS present Extremities-No edema Neuro-No focal deficits Lab data as noted below. ASSESSMENT & PLAN: Patient was sent in from PCP office for hyperglycemia, symptoms of cough/ weakness/diarrhea, noted to have GERMAINE/Hypokalemia on admission and admitted for further evaluation and rx. Influenza A came back positive, completed course of Laila flu and Azithromycin. Went into new onset Atrial flutter, difficult to control ate. Became hypoxic with sao2 dropping to 80s, now on ventimask. ACUTE HYPOXIC RESPIRATORY FAILURE : Improving slowly Went into hypoxia with SaO2 - 80s - 3 days after admission, S/P Ventimask --> 95% on 6 L --> 3 L today -Initially treated for ACUTE PULMONARY EDEMA with IV lasix x 2 doses which resolved. Continued to have worsening hypoxia, CXR on 10/10/16- New medial right lung base opacity- POSSIBLE POST INFLUENZA PNEUMONIA--> Started on IV antibx broad spectrum--> Hypoxia continued to worsen--> CT chest on 10/12--no pneumonia, ATELECTASIS + -Other possibilities: Mucus plugging as sudden onset hypoxia and cough with inability to bring up sputum, PE- but already on Heparin/Coumadin for A flutter. --> Now hypoxia improving slowly -Work up - CT scan chest- B/L Pleural effusion-Right mod, left small, Mild pulm edema, less likely pneumonia, atelectasis, CXR- as above; ABGs- hypoxia + -Monitor closely ATRIAL FLUTTER WITH RVR (NEW ONSET) : Patient went into A flutter for some time with HR 120s 10/08/16 and spontaneously converted to sinus rhythm. Again next day went into Atrial Flutter with RVR- fluctuating between A flutter RVR and NSR since than. Initially thought to be paroxysmal related to Influenza, but as persisted, was started on IV heparin/Coumadin -Likely secondary to Influenza, GERMAINE, Hypokalemia -S/P Metoprolol/Cardizem PO --> On IV Amiodarone drip since 10/12/26 --> Restarted Metoprolol XL BID and continue with IV Amiodarone -Anticoagulation : CHADS - 3. Discussed about daughter in law about anticoagulation given persistent Atrial Flutter- willing to help her with INR draws at labs as prior to admission she had a good active life for her age including ADLS, Driving, shopping. IV Heparin/Coumadin started on 10/09/16. -Echocardiogram- EF 60-65%, Moderate LVH, Mild MS, TSH - normal -Cardiology on board. Appreciate inputs. POSSIBLE RIGHT MEDIAL LOBE PNEUMONIA With post influenza, need to consider staph, though MRSA - negative. -CXR initially showed right medial lobe pneumonia, CT scan chest shows pneumonia less likely -S/P IV Vanco/Zosyn (Day 2)--> discontinue and changed to Doxycycline (01/22) -Blood cx x 2- Neg, Sputum cx-cant bring up -Mucinex BID, Spirometry, Flutter valve ordered for atelectasis. Encourage ambulation daily GERMAINE- Improving Pre renal/Renal from viral illness Cr went up to 1.90 from baseline 0.9. Now coming down 1.70 today Likely due to dehydration from recent viral illness initially--> IVF--> IVF discontinued 10/10/16. Congestion --> Lasix IV 40 x 2 doses--> Held on 10/12/16 due to elevated creatinine -Continue to hold losartan and lasix PO -Monitor renal function INFLUENZA A Symptoms are resolving, but continues to have cough but not able to bring up much sputum. -S/P Azithromycin started as outpatient- completed the course -On Tamiflu- completed course DM-2 UNCONTROLLED: Underlying DM type 2 on oral meds; uncontrolled on last A1c in 07/2016 (10.0) Sent from Dr. Dominguez's office for elevated BSG to 400s Possibly elevated secondary to viral illness/Influenza -Hold diabetic medications. Insulin Lantus /ISS per pharmacy- appreciate inputs -[id number] -Diabetes education done -- willing to do insulin at home. Plan to discharge on Insulin at home if patient agrees. 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 Discussed results with daughter and aware about this finding. HTN Continue amlodipine and metoprolol -Losartan and furosemide on hold for GERMAINE HYPERLIPIDEMIA -Continue statin DVT PROPHYLAXIS -Heparin SQ CODE STATUS -Full code per my discussion with the patient DISPOSITION PT./OT ordered - To be determined. Will likely benefit from rehab placement given prolonged hospitalization/illness. Called daughter in law to update 10/08/16 and discussed about new onset atrial flutter, risk of stroke associated with it, new anticoagulation, insulin and need for closer monitoring for blood sugar levels, INR draws. Understands and agreeable to giving more support. Updated son on 10/10/16, 10/12/16. Motivated to ambulate and participate more in PT/OT Continue with tele monitoring Vital Signs: Date Time Temp Pulse Resp B/P Pulse Ox O2 Delivery O2 Flow Rate FiO2 10/14/16 11:23 36.4 73 24 124/59 97 Nasal Cannula 3.0 10/14/16 08:00 Nasal Cannula 4.0 10/14/16 07:26 36.9 88 20 138/67 92 Nasal Cannula 3.0 10/14/16 07:09 88 22 93 Nasal Cannula 4.0 10/14/16 04:02 Nasal Cannula 4.0 10/14/16 03:51 36.9 86 26 139/67 93 Nasal Cannula 4.0 10/14/16 00:02 Nasal Cannula 4.0 10/13/16 23:50 36.9 90 22 150/85 93 Nasal Cannula 4.0 10/13/16 23:22 84 24 94 Nasal Cannula 4.0 10/13/16 22:43 128 125/83 10/13/16 20:48 136 146/65 10/13/16 20:05 36.8 104 20 144/62 94 Nasal Cannula 4.0 10/13/16 20:01 Nasal Cannula 4.0 10/13/16 19:25 102 18 94 Nasal Cannula 4.0 10/13/16 16:00 Nasal Cannula 6.0 10/13/16 15:24 81 18 94 Nasal Cannula 4.0 10/13/16 15:10 36.8 95 20 138/64 94 Nasal Cannula 4.0 Lab Results: Results Past 24 Hours Test 10/13/16 16:33 10/13/16 20:29 10/14/16 01:51 10/14/16 05:30 Range/Units Bedside Glucose 218 182 158 70-90 mg/dl Prothrombin Time 19.4 9.0-12.0 SECONDS Prothromb Time International Ratio 1.8 0.9-1.1 Activated Partial Thromboplast Time 66.1 21.0-31.0 SECONDS Partial Thromboplastin Ratio 2.5 Sodium Level 129 136-145 mmol/L Potassium Level 3.8 3.5-5.1 mmol/L Chloride Level 95 98-107 mmol/L Carbon Dioxide Level 22 21-32 mmol/L Anion Gap 12.0 3-11 mmol/L Blood Urea Nitrogen 26 7-18 mg/dl Creatinine 1.70 0.60-1.20 mg/dl Est Creatinine Clear Calc Drug Dose 22.3 ml/min Estimated GFR () 30.7 Estimated GFR (Non- 26.5 BUN/Creatinine Ratio 15.1 10-20 Random Glucose 123 70-99 mg/dl Calcium Level 8.2 8.5-10.1 mg/dl Test 10/14/16 07:11 10/14/16 11:05 Range/Units Bedside Glucose 148 226 70-90 mg/dl
--- NOTE | 2016-10-14 13:26 | Pharmacy Progress Note ---
Glycemic: Assessment & Plan Date of Service Oct 14, 2016. Assessment & Plan Outpatient Anti-diabetic Regimen: * Glimepiride 4mg PO daily * Sitagliptin 100mg PO daily * A1c = 12.7 % 10/07/16 ASSESSMENT: 10/14/16: * Patient better-controlled overnight with additional Lantus given yesterday. Will supplement again this afternoon, as pre-lunch BSG elevated and then increase scheduled Lantus dose starting this evening. * Patient received 50 units of insulin yesterday with BSGs ranging from 158 - 239. * It is likely that patient will require insulin after discharge d/t elevated A1c (12.7%). Will continue to follow and work on some discharge recommendations as discharge approaches. 10/13/16 * Patient continues to be hyperglycemic despite changes made yesterday. * Will give extra dose of Lantus this afternoon and also tighten carb coverage today. * Will continue to adjust regimen until BSGs controlled. 10/12/16 * It has been difficult to achieve our glycemic targets in this patient * BSGs are improved this AM (170-180's) after running in the 400's the second half of the day yesterday. * Each day she seems to require more insulin 32 units/day (10/09), 42 units/day (10/10) and 66 units/day (10/11) * Upon review of records it seems like hyperglycemia worsened with the initiation of multiple dextrose containing infusions. I also suspect that the Lantus dose she is receiving in the evenings is not providing a full 24 hrs of effect as the BSGs at dinner and HS are routinely elevated. Will increase the Lantus dose today but split the dose BID to see if this helps. * The elevated BSGs the second half of the day may also be due to inadequate prandial insulin. The prandial dose was increased slightly yesterday. Will make a slight increase again today. PLAN FOR INPATIENT GLYCEMIC CONTROL: * Increase Lantus to 12 units SQ BID starting with this evening's dose * Give extra dose of Lantus 5 units x1 dose at 1330 * Continue correction factor of 25 mg/dl/unit * Continue carb ratio of 1 unit per 8 grams CHO consumed * Continue goal range of Low 120 mg/dL - High 160 mg/dL * Will not order an overnight accu-check tonight, as patient did not require any coverage overnight last night. * Please note that the plan above was derived based on current level of insulin resistance and hospital stress. These recommendations are appropriate for inpatient admission only. Plan of care upon discharge will need to be reassessed to avoid potential outpatient hypo/hyperglycemia. Thank you.
[2016-10-14] MEDS ORDERED: INSULIN GLARGINE SOLOSTAR 100 UNITS/ML 3 ML PEN SC ONE (13:30)
[2016-10-14] MEDS ORDERED: LEVALBUTEROL 1.25MG/0.5ML NEB INH SCH (15:00)
[2016-10-14] MEDS ORDERED: IPRATROPIUM BROMIDE NEB SOLN 0.02% 2.5 ML VIAL INH SCH (15:00)
[2016-10-14] MEDS: LEValbuterol HFA 15GM INHALER INH SCH ×3 (16:29→23:53)
[2016-10-14] MEDS: IPRATROPIUM BROMIDE HFA INHALER INH SCH ×3 (16:29→23:57)
[2016-10-14] MEDS: WARFARIN SOD 5 MG TAB PO SCH (16:30)
[2016-10-14] MEDS ORDERED: POTASSIUM CHLORIDE 20 MEQ/15 ML UDC PO ONE (17:39)
[2016-10-14] MEDS: AMIODARONE 200 MG TAB PO SCH ×2 (19:08→23:58)
[2016-10-14] MEDS: ATORVASTATIN 40 MG TAB PO SCH (20:22)
[2016-10-14] MEDS: ALPRAZOLAM 0.25 MG TAB PO PRN (21:27)
[2016-10-14] MEDS: METOPROLOL SUCC 25MG EXT REL TAB PO SCH (21:28)
[2016-10-15] VITALS (8 sets, daily range): BP systolic 122–147; BP diastolic 61–91; PULSE 73–83; TEMP 36.3–37; O2SAT 92–99
[2016-10-15] MEDS: NITROGLYCERIN OINT 2% 1GM PACKET EXT SCH ×3 (00:04→12:00)
[2016-10-15] MEDS: LEValbuterol HFA 15GM INHALER INH SCH ×3 (04:01→12:06)
[2016-10-15] MEDS: IPRATROPIUM BROMIDE HFA INHALER INH SCH ×3 (04:01→12:06)
[2016-10-15] MEDS: AMIODARONE 200 MG TAB PO SCH ×4 (06:10→23:55)
[2016-10-15 06:18] LABS: MEAN CELL VOLUME 88.6 fL (80-100); MEAN CORPUSCULAR HGB CONC 36.1 g/dl (32-36); MEAN PLATELET VOLUME 9.8 fL (7.4-10.4); PLATELET COUNT 408 K/uL (130-400); RED BLOOD COUNT 3.16 M/uL (4.2-5.4); WHITE BLOOD COUNT 11.89 K/uL (4.8-10.8)
[2016-10-15 06:45] LABS: BUN/CREATININE RATIO 16.7 (10-20); CALCIUM 8.1 mg/dl (8.5-10.1); CREATININE 1.9 mg/dl (0.60-1.20); POTASSIUM 4.1 mmol/L (3.5-5.1)
[2016-10-15 06:56] LABS: INR 2.1 (0.9-1.1); PARTIAL THROMBOPLASTIN RATIO 3.5; PROTHROMBIN TIME (PATIENT) 23.4 SECONDS (9.0-12.0)
[2016-10-15] MEDS: GUAIFENESIN 600 MG TABCR PO SCH ×2 (08:01→20:47)
[2016-10-15] MEDS: DOCUSATE SODIUM 100 MG CAP PO SCH ×2 (08:02→20:46)
[2016-10-15] MEDS: ASPIRIN 81 MG ECTAB PO SCH (08:03)
[2016-10-15] MEDS: AMLODIPINE BESYLATE 5 MG TAB PO SCH (08:04)
[2016-10-15] MEDS: DOXYCYCLINE HYCLATE 100 MG CAP PO SCH ×2 (08:04→20:44)
[2016-10-15] MEDS: INSULIN ASPART 100 UNITS/ML 3 ML PEN SC SCH ×4 (08:24→20:47)
[2016-10-15] MEDS: INSULIN GLARGINE SOLOSTAR 100 UNITS/ML 3 ML PEN SC SCH ×2 (08:25→20:48)
[2016-10-15] MEDS: METOPROLOL SUCC 25MG EXT REL TAB PO SCH ×2 (08:36→20:44)
[2016-10-15] MEDS ORDERED: INSULIN GLARGINE SOLOSTAR 100 UNITS/ML 3 ML PEN SC SCH (09:00)
--- NOTE | 2016-10-15 09:27 | Pharmacy Progress Note ---
Glycemic: Assessment & Plan Date of Service Oct 15, 2016. Assessment & Plan Outpatient Anti-diabetic Regimen: * Glimepiride 4mg PO daily * Sitagliptin 100mg PO daily * A1c = 12.7 % 10/07/16 ASSESSMENT: 10/15/16: * Patient received 55 units of insulin yesterday with BSGs ranging from 148 - 340 mg/dL. * Basal insulin has been increased over the past several days, resulting in reasonable fasting BSGs. * Will tighten up Novolog parameters today in an effort to achieve better control throughout the day. 10/14/16 * Patient better-controlled overnight with additional Lantus given yesterday. Will supplement again this afternoon, as pre-lunch BSG elevated and then increase scheduled Lantus dose starting this evening. * Patient received 50 units of insulin yesterday with BSGs ranging from 158 - 239. * It is likely that patient will require insulin after discharge d/t elevated A1c (12.7%). Will continue to follow and work on some discharge recommendations as discharge approaches. 10/13/16 * Patient continues to be hyperglycemic despite changes made yesterday. * Will give extra dose of Lantus this afternoon and also tighten carb coverage today. * Will continue to adjust regimen until BSGs controlled. 10/12/16 * It has been difficult to achieve our glycemic targets in this patient * BSGs are improved this AM (170-180's) after running in the 400's the second half of the day yesterday. * Each day she seems to require more insulin: 32 units/day (10/09), 42 units/ day (10/10) and 66 units/day (10/11) * Upon review of records it seems like hyperglycemia worsened with the initiation of multiple dextrose containing infusions. I also suspect that the Lantus dose she is receiving in the evenings is not providing a full 24 hrs of effect as the BSGs at dinner and HS are routinely elevated. Will increase the Lantus dose today but split the dose BID to see if this helps. * The elevated BSGs the second half of the day may also be due to inadequate prandial insulin. The prandial dose was increased slightly yesterday. Will make a slight increase again today. PLAN FOR INPATIENT GLYCEMIC CONTROL: * Lantus 12 units SQ BID * give 1/2 dose for BSG less than 120mg/dL * Tighten correction factor to 20 mg/dl/unit * Tighten carb ratio to 1 unit per 7 grams CHO consumed * Continue goal range of Low 120 mg/dL - High 160 mg/dL * Please note that the plan above was derived based on current level of insulin resistance and hospital stress. These recommendations are appropriate for inpatient admission only. Plan of care upon discharge will need to be reassessed to avoid potential outpatient hypo/hyperglycemia. Thank you.
[2016-10-15] MEDS ORDERED: LEVALBUTEROL 0.63MG/3 ML NEB INH PRN (12:15)
--- NOTE | 2016-10-15 12:25 | Progress Note ---
Internal Med Progress Note Date of Service: Oct 15, 2016. Provider Documentation: SUBJECTIVE: Patient is doing better today- Improving slowly. Continues to have cough, unable to bring up sputum - overall seems to be improving. Denies chest pain, SOB, nausea, vomiting, abdominal pain, diarrhea, fever, chills. Having her lunch. Tele-NSR with HR 70s. Off Amiodarone drip yesterday On 4.5 L oxygen - 95% OBJECTIVE : Vital Signs-as noted below Exam: General-AAOX2, no distress, not using accessory muscles of respiration Eyes-No icterus Neck-Supple, No JVD Lungs-AEBE decreased, no wheezing, rhonchi, rales Heart-S1, S2 normal Extremities-Right > Left foot edema- worsened Neuro-No focal deficits Lab data as noted below. ASSESSMENT & PLAN: Patient was sent in from PCP office for hyperglycemia, symptoms of cough/ weakness/diarrhea, noted to have GERMAINE/Hypokalemia on admission and admitted for further evaluation and rx. Influenza A came back positive, completed course of Laila flu and Azithromycin. Went into new onset Atrial flutter, difficult to control rate. Became hypoxic with sao2 dropping to 80s, requiring ventimask for few days. CXR/CT scan - atelectasis. Rxed for possible acute pulm edema x 2 doses of lasix, IV antibiotics for possible pneumonia. Had to be started on IV amiodarone for A fib with RVR. Off drip since yesterday. Overall improving. ASSESSMENT / PLAN : ACUTE HYPOXIC RESPIRATORY FAILURE : Improving slowly Went into hypoxia with SaO2 - 80s - 3 days after admission, S/P Ventimask --> 95% on 6 L --> 3 L--> 4.5 L today -Initially treated for ACUTE PULMONARY EDEMA with IV lasix x 2 doses which resolved. Continued to have worsening hypoxia requiring ventimask, CXR on - New medial right lung base opacity- POSSIBLE POST INFLUENZA PNEUMONIA--> Started on IV antibx broad spectrum--> Hypoxia continued to worsen--> CT chest on 10/12--no pneumonia, ATELECTASIS +, no pneumonia. -Other possibilities considered: Mucus plugging as sudden onset hypoxia and cough with inability to bring up sputum, PE- but already on Heparin/Coumadin for A flutter.--> Now hypoxia improving slowly -Work up - CT scan chest- B/L Pleural effusion-Right mod, left small, Mild pulmonary edema, less likely pneumonia, atelectasis, CXR- as above; ABGs- hypoxia + -Will need 2 step prior to discharge. ATRIAL FLUTTER WITH RVR (NEW ONSET) : Now NSR with rate controlled. Patient went into A flutter for some time with HR 120s 10/08/16 and spontaneously converted to sinus rhythm. Again next day went into Atrial Flutter with RVR- fluctuating between A flutter RVR and NSR since than. Initially thought to be paroxysmal related to Influenza, but as persisted, was started on IV heparin/Coumadin -Likely secondary to Influenza, GERMAINE, Hypokalemia -S/P Increased dose of Metoprolol/Cardizem PO --> IV Amiodarone drip since --> Restarted Metoprolol XL 25 BID and discontinued IV amiodarone yesterday--> Amiodarone PO q 6 hr started -Anticoagulation : CHADS - 3. IV Heparin/Coumadin started on 10/09/16--> INR 2.1 today, discontinued IV heparin today -Echocardiogram- EF 60-65%, Moderate LVH, Mild MS, TSH - normal -Cardiology on board. Appreciate inputs. POSSIBLE RIGHT MEDIAL LOBE PNEUMONIA With post influenza need to consider staph, but MRSA came back negative. -CXR initially showed right medial lobe pneumonia, CT scan chest shows pneumonia less likely -S/P IV Vanco/Zosyn (Day 2)--> discontinued and changed to Doxycycline (02/21) -Blood cx x 2- Neg, Sputum cx-cant bring up -Mucinex BID, Spirometry, Flutter valve ordered for atelectasis. Encourage ambulation daily GERMAINE- Unchanged Pre renal/Renal from viral illness Cr went up to 1.90 from baseline 0.9. Fluctuating Initially due to dehydration from recent viral illness --> IVF--> IVF discontinued 10/10/16. Congestion --> Lasix IV 40 x 2 doses--> Held on 10/12/16 due to elevated creatinine--> Restart lasix at 20 mg bid today as foot/leg edema worsening -Continue to hold losartan. -Monitor renal function INFLUENZA A Symptoms are resolving, but continues to have cough but not able to bring up much sputum. -S/P Azithromycin started as outpatient- completed the course -Completed course of Tamiflu DM-2 UNCONTROLLED: Underlying DM type 2 on oral meds; uncontrolled on last A1c in 07/2016 (10.0) Sent from Dr. Dominguez's office for elevated BSG to 400s Possibly elevated secondary to viral illness/Influenza -Hold diabetic medications. Insulin Lantus /ISS per pharmacy- appreciate inputs -[id number] -Diabetes education done -- willing to do insulin at home. Plan to discharge on Insulin at home if patient agrees. 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 Discussed results with daughter and aware about this finding. HTN Continue amlodipine and metoprolol (decreased to 25 mg BID from home 100 mg XL due to starting amiodarone).. Held losartan due to GERMAINE -Discontinued Nitro paste started by cardiology on 10/12/16. Restarted lasix 20 mg bid. HYPERLIPIDEMIA -Continue statin DVT PROPHYLAXIS -INR 2.1 CODE STATUS -Full code per my discussion with the patient DISPOSITION PT/OT ordered - To be determined. Will likely benefit from rehab placement given prolonged hospitalization/illness Monitor - creatinine, volume status, oxygen requirement, HR with changes in medications Called daughter in law to update on 10/08/16 and discussed about new onset atrial flutter, risk of stroke associated with it, new anticoagulation, insulin need on dc, need for closer monitoring for blood sugar levels, INR draws, abnormal CT results. Understands and agreeable to giving more support. Updated son on 10/10/16, 10/12/16. Motivated to ambulate and participate more in PT/OT Discontinue foleys today Continue with tele monitoring Vital Signs: Date Time Temp Pulse Resp B/P Pulse Ox O2 Delivery O2 Flow Rate FiO2 10/15/16 11:10 36.9 81 20 137/66 95 Nasal Cannula 4.0 10/15/16 08:00 Nasal Cannula 4.0 10/15/16 07:34 37.0 82 20 130/63 92 Nasal Cannula 4.5 10/15/16 04:01 36.4 83 16 147/69 93 4.0 10/15/16 04:00 Nasal Cannula 4.0 10/15/16 00:03 36.7 73 22 122/61 94 3.0 10/14/16 23:59 Nasal Cannula 3.0 10/14/16 20:00 Nasal Cannula 3.0 10/14/16 19:33 36.7 82 20 130/80 96 4.0 10/14/16 16:15 Nasal Cannula 3.0 10/14/16 15:47 36.6 85 18 130/59 96 4.0 Lab Results: Results Past 24 Hours Test 10/14/16 16:10 10/14/16 20:26 10/15/16 05:50 10/15/16 06:53 Range/Units Bedside Glucose 340 334 153 70-90 mg/dl White Blood Count 11.89 4.8-10.8 K/uL Red Blood Count 3.16 4.2-5.4 M/uL Hemoglobin 10.1 12.0-16.0 g/dL Hematocrit 28.0 37-47 % Mean Corpuscular Volume 88.6 80-100 fL Mean Corpuscular Hemoglobin 32.0 25-34 pg Mean Corpuscular Hemoglobin Concent 36.1 32-36 g/dl RDW Standard Deviation 38.8 36.4-46.3 fL RDW Coefficient of Variation 11.8 11.5-14.5 % Platelet Count 408 130-400 K/uL Mean Platelet Volume 9.8 7.4-10.4 fL Prothrombin Time 23.4 9.0-12.0 SECONDS Prothromb Time International Ratio 2.1 0.9-1.1 Activated Partial Thromboplast Time 90.6 21.0-31.0 SECONDS Partial Thromboplastin Ratio 3.5 Sodium Level 128 136-145 mmol/L Potassium Level 4.1 3.5-5.1 mmol/L Chloride Level 94 98-107 mmol/L Carbon Dioxide Level 23 21-32 mmol/L Anion Gap 11.0 3-11 mmol/L Blood Urea Nitrogen 32 7-18 mg/dl Creatinine 1.90 0.60-1.20 mg/dl Est Creatinine Clear Calc Drug Dose 20.1 ml/min Estimated GFR () 26.8 Estimated GFR (Non- 23.1 BUN/Creatinine Ratio 16.7 10-20 Random Glucose 154 70-99 mg/dl Calcium Level 8.1 8.5-10.1 mg/dl Test 10/15/16 11:32 Range/Units Bedside Glucose 175 70-90 mg/dl
[2016-10-15 14:33] LABS: PARTIAL THROMBOPLASTIN RATIO 1.7
[2016-10-15] MEDS ORDERED: IPRATROPIUM BROMIDE HFA INHALER INH PRN (16:00)
[2016-10-15] MEDS: WARFARIN SOD 5 MG TAB PO SCH (16:47)
--- NOTE | 2016-10-15 16:50 | PROGRESS NOTE ---
DATE: 10/15/2016 The patient seen and examined. Chart, medications, telemetry reviewed. SUBJECTIVE: The patient feels improved this morning. Cough is less productive and rhonchorous. Overall, feels she is "turned the corner". Still requiring oxygen at 3-4 liters for oxygenation. Notes no tachypalpitations, syncope or near syncope. Telemetry demonstrates no further atrial arrhythmias overnight. OBJECTIVE: VITAL SIGNS: Heart rate is 80, blood pressure is 135/70. NECK: Thin. There is no distinct jugular venous distention. LUNGS: Rodríguez few wheezes on forced cough, predominantly clear. CARDIOVASCULAR: Regular. There is no S3 gallop. ABDOMEN: Soft, nontender. EXTREMITIES: Without cyanosis or clubbing. There is trace to 1+ pedal edema. LABORATORY STUDIES: Sodium is 128, potassium is 4.1, chloride is 94, bicarbonate 23, BUN is 32, creatinine is 1.9. INR is 2.1. White cell count 11.8, hemoglobin is 10.1. IMPRESSION: An 89-year-old female admitted with issues as noted. 1. Acute respiratory distress secondary to influenza A. 2. Acute illness induced atrial fibrillation and flutter with rapid ventricular response, now controlled in sinus rhythm with IV to oral amiodarone. She is appropriately anticoagulated with Coumadin. 3. Acute renal insufficiency, multifactorial. Note furosemide was resumed today. Will hold after single dose and reassess renal function. The patient gradually making progress. 4. History of hypertension. Patient on substantial antihypertensive regimen at home including losartan 100 mg per day, metoprolol succinate 100 mg p.o. day, amlodipine 5 mg per day, furosemide 40 mg p.o. every day. Medications have been reduced in hospital. Will gradually titrate as necessary, Losartan continues to be held due to her renal insufficiency. If blood pressure increases in hospital would resume topical oral nitrates.
[2016-10-15] MEDS ORDERED: FUROSEMIDE 20 MG TAB PO SCH (17:00)
[2016-10-15] MEDS: ATORVASTATIN 40 MG TAB PO SCH (20:44)
[2016-10-16] VITALS (7 sets, daily range): BP systolic 128–149; BP diastolic 56–88; PULSE 71–77; TEMP 36.4–37.1; O2SAT 95–98
[2016-10-16] MEDS: AMIODARONE 200 MG TAB PO SCH ×3 (05:12→17:22)
[2016-10-16 06:02] LABS: HEMATOCRIT 29.7 % (37-47); MEAN CELL VOLUME 89.7 fL (80-100); MEAN CORPUSCULAR HEMOGLOBIN 31.7 pg (25-34); MEAN CORPUSCULAR HGB CONC 35.4 g/dl (32-36); MEAN PLATELET VOLUME 9.6 fL (7.4-10.4); PLATELET COUNT 455 K/uL (130-400); RED BLOOD COUNT 3.31 M/uL (4.2-5.4); WHITE BLOOD COUNT 10.12 K/uL (4.8-10.8)
[2016-10-16 06:17] LABS: PARTIAL THROMBOPLASTIN RATIO 1.7; PROTHROMBIN TIME (PATIENT) 21.8 SECONDS (9.0-12.0)
[2016-10-16 06:36] LABS: BUN/CREATININE RATIO 18.6 (10-20); CALCIUM 8.4 mg/dl (8.5-10.1); CREATININE 1.8 mg/dl (0.60-1.20); POTASSIUM 4.4 mmol/L (3.5-5.1)
[2016-10-16] MEDS: INSULIN ASPART 100 UNITS/ML 3 ML PEN SC SCH ×4 (08:10→20:33)
[2016-10-16] MEDS: INSULIN GLARGINE SOLOSTAR 100 UNITS/ML 3 ML PEN SC SCH ×2 (08:10→20:52)
[2016-10-16] MEDS: GUAIFENESIN 600 MG TABCR PO SCH ×3 (08:11→21:00)
[2016-10-16] MEDS: ASPIRIN 81 MG ECTAB PO SCH (08:11)
[2016-10-16] MEDS: DOCUSATE SODIUM 100 MG CAP PO SCH ×3 (08:11→21:00)
[2016-10-16] MEDS: AMLODIPINE BESYLATE 5 MG TAB PO SCH (08:12)
[2016-10-16] MEDS: DOXYCYCLINE HYCLATE 100 MG CAP PO SCH ×2 (08:13→20:33)
[2016-10-16] MEDS: METOPROLOL SUCC 25MG EXT REL TAB PO SCH ×2 (08:13→20:33)
--- NOTE | 2016-10-16 09:33 | Pharmacy Progress Note ---
Glycemic: Assessment & Plan Date of Service Oct 16, 2016. Assessment & Plan Outpatient Anti-diabetic Regimen: * Glimepiride 4mg PO daily * Sitagliptin 100mg PO daily * A1c = 12.7 % 10/07/16 ASSESSMENT: 10/16/16: * Patient received 38 units of insulin yesterday, with BSGs ranging from 103 - 175 mg/dL. * Since BSGs are markedly improved so far today, will back off on Lantus dose slightly at this time and loosen Novolog parameters just a bit, to avoid hypoglycemia. * Patient's A1c this admission is 12.7%. It doesn't sound like patient is interested in learning to SMBG or inject insulin at home. This is probably reasonable in an 89yo patient with multiple co-morbidities. * Perhaps insulin could be used during inpatient rehab and then oral agents could be modified for better control after discharge? * Would prefer to see an A1c closer to 8.5% in this patient. 10/15/16 * Patient received 55 units of insulin yesterday with BSGs ranging from 148 - 340 mg/dL. * Basal insulin has been increased over the past several days, resulting in reasonable fasting BSGs. * Will tighten up Novolog parameters today in an effort to achieve better control throughout the day. 10/14/16 * Patient better-controlled overnight with additional Lantus given yesterday. Will supplement again this afternoon, as pre-lunch BSG elevated and then increase scheduled Lantus dose starting this evening. * Patient received 50 units of insulin yesterday with BSGs ranging from 158 - 239. 10/13/16 * Patient continues to be hyperglycemic despite changes made yesterday. * Will give extra dose of Lantus this afternoon and also tighten carb coverage today. 10/12/16 * It has been difficult to achieve our glycemic targets in this patient * BSGs are improved this AM (170-180's) after running in the 400's the second half of the day yesterday. * Each day she seems to require more insulin: 32 units/day (10/09), 42 units/ day (10/10) and 66 units/day (10/11) * Upon review of records it seems like hyperglycemia worsened with the initiation of multiple dextrose containing infusions. I also suspect that the Lantus dose she is receiving in the evenings is not providing a full 24 hrs of effect as the BSGs at dinner and HS are routinely elevated. Will increase the Lantus dose today but split the dose BID to see if this helps. * The elevated BSGs the second half of the day may also be due to inadequate prandial insulin. The prandial dose was increased slightly yesterday. Will make a slight increase again today. PLAN FOR INPATIENT GLYCEMIC CONTROL: * Lantus 10 units SQ BID * give 1/2 dose for BSG less than 120mg/dL * Novolog for correctional/prandial coverage, accu-checks ACHS * Correction factor: 25 mg/dl/unit * Carb ratio: 1 unit per 8 grams CHO consumed * Goal range: Low 120 mg/dL - High 160 mg/dL * Please note that the plan above was derived based on current level of insulin resistance and hospital stress. These recommendations are appropriate for inpatient admission only. Plan of care upon discharge will need to be reassessed to avoid potential outpatient hypo/hyperglycemia. Thank you.
[2016-10-16] MEDS ORDERED: ISOSORBIDE MONONITRATE 30 MG TABCR PO ONE (10:34)
[2016-10-16] MEDS ORDERED: FUROSEMIDE 20 MG TAB PO ONE (10:35)
--- NOTE | 2016-10-16 10:53 | CARDIOLOGY PROGRESS NOTE ---
DATE: 10/16/2016 Patient seen and examined. Chart, medications, telemetry reviewed. SUBJECTIVE: The patient is slowly feeling "better this morning". Notes no more productive cough with cough issues improved. Notes no dizziness or lightheadedness. Notes no headache or visual changes, has mild pedal edema. OBJECTIVE: VITAL SIGNS: Heart rate is 77, blood pressure is 148/88. NECK: Thin. There is no jugular venous distention at 30 degrees. LUNGS: Reveal better aeration to the bases. There are bilingual account manager longer wheezes present. ABDOMEN: Soft, nontender. EXTREMITIES: Without cyanosis or clubbing. There is 1+ pedal edema. LABORATORY DATA: White cell count 10.1, hemoglobin is 10.5. Sodium is 129, potassium is 4.4, chloride is 95, bicarbonate 24, BUN is 33, creatinine is 1.8. IMPRESSION: 89-year-old female who presented with acute respiratory distress secondary to influenza A complicated by atrial fibrillation flutter with rapid ventricular response. She is maintaining sinus rhythm with combination of amiodarone and metoprolol. Underlying medical problems include hypertension and recently noted acute renal insufficiency. We will resume furosemide at 20 mg per day. The patient previously on losartan for hypertension, this may ultimately need to be resumed though will hold given renal insufficiency. We will not increase amlodipine further given peripheral edema. Will add oral nitrates as topical nitrates appear to aid in blood pressure control in the hospital. Ultimate plans will be to continue beta dixon and amiodarone with amiodarone at least for 4 weeks' time. Continue anticoagulation with warfarin. Expect slow gradual return of pulmonary function. Will make arrangements to have patient seen in the next 2-3 weeks at cardiology clinic as an outpatient.
--- NOTE | 2016-10-16 13:22 | Progress Note ---
Medicine Progress Note Date & Time of Visit: Oct 16, 2016 at 13:21. Subjective No fever or chills. Occasional nonproductive cough; less dyspneic. No chest pain. No nausea, vomiting, diarrhea. Still has Gray catheter. . Objective Last 8 Hrs Date Time Temp Pulse Resp B/P Pulse Ox O2 Delivery O2 Flow Rate FiO2 10/16/16 12:00 Nasal Cannula 3.0 10/16/16 10:50 36.8 72 20 128/60 98 Nasal Cannula 3.0 10/16/16 10:28 73 10/16/16 08:00 Nasal Cannula 3.0 10/16/16 07:37 37.1 77 20 149/88 95 Nasal Cannula 3.0 Physical Exam: General- sitting in chair; no acute distress Eyes- anicteric ENT- wearing nasal cannula Neck- + JVD Lungs- mild wheezing, few basilar rales Heart- regular, no gallop appreciated Abdomen- bowel sounds, soft, nontender - Gray catheter Extremities- 1-2+ pretibial edema; no calf tenderness Neuro- alert, oriented . Laboratory Results: Last 24 Hours Test 10/15/16 14:08 10/15/16 16:04 10/15/16 20:20 10/16/16 05:15 Activated Partial Thromboplast Time 44.0 SECONDS 45.1 SECONDS Partial Thromboplastin Ratio 1.7 1.7 Bedside Glucose 103 mg/dl 156 mg/dl White Blood Count 10.12 K/uL Red Blood Count 3.31 M/uL Hemoglobin 10.5 g/dL Hematocrit 29.7 % Mean Corpuscular Volume 89.7 fL Mean Corpuscular Hemoglobin 31.7 pg Mean Corpuscular Hemoglobin Concent 35.4 g/dl RDW Standard Deviation 39.2 fL RDW Coefficient of Variation 11.9 % Platelet Count 455 K/uL Mean Platelet Volume 9.6 fL Prothrombin Time 21.8 SECONDS Prothromb Time International Ratio 2.0 Sodium Level 129 mmol/L Potassium Level 4.4 mmol/L Chloride Level 95 mmol/L Carbon Dioxide Level 24 mmol/L Anion Gap 10.0 mmol/L Blood Urea Nitrogen 33 mg/dl Creatinine 1.80 mg/dl Est Creatinine Clear Calc Drug Dose 21.3 ml/min Estimated GFR () 28.6 Estimated GFR (Non- 24.7 BUN/Creatinine Ratio 18.6 Random Glucose 119 mg/dl Calcium Level 8.4 mg/dl Test 10/16/16 06:49 10/16/16 11:35 Bedside Glucose 120 mg/dl 108 mg/dl Assessment & Plan INFLUENZA A Influenza A SEO COORDINATOR swab + at 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 Completed course oseltamivir. ACUTE HYPOXIC RESPIRATORY FAILURE Developed acute hypoxic respiratory failure. Probably due to combination of influenza, possible pneumonia, pulmonary edema. Primary status improved. Wean oxygen as tolerated. POSSIBLE PNEUMONIA Imaging demonstrated possible infiltrate right base. Suspected influenza associated pneumonia. Continue doxycycline. ATRIAL FIB / FLUTTER Developed atrial fib / flutter with rapid ventricular response. Cardiology consulted. Now in normal sinus rhythm. Continue metoprolol, amiodarone, warfarin. PULMONARY EDEMA Pulmonary edema noted on imaging. Echo showed normal left ventricular systolic function. Pulmonary edema probably secondary to combination of acute left ventricular diastolic failure, tachyarrhythmias, IV fluids. Receiving furosemide. Check follow-up chest x-ray. ELEVATED TROPONIN Suspected demand ischemia. HYPERTENSION Blood pressures well-controlled. Continue metoprolol, amlodipine, nitrates. ACUTE KIDNEY INJURY Serum creatinine 1.7 on admission and emma as high as 1.9. Creatinine today = 1.8. Follow. DIABETES MELLITUS TYPE 2 Uncontrolled. Random blood sugar 450 day of admission. Hemoglobin A1c 12.7. Receiving Lantus/NovoLog per protocol. Fasting blood sugar today = 120 DYSLIPIDEMIA Continue atorvastatin. 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 Will need outpatient follow-up. VTE PROPHYLAXIS Continue warfarin. DISPOSITION Anticipated need for skilled care. Case Management consulted. Referral made to [facility]. Internal Medicine follow-up with Dr. Dominguez. . Current Inpatient Medications: Current Inpatient Medications Medications (Trade) Dose Ordered Sig/[place]apha Route Start Time Stop Time Status Last Admin Dose Admin Acetaminophen (Tylenol Tab) 650 mg Q4H PRN PO 10/06/16 19:15 11/05/16 19:14 Ondansetron HCl (Zofran Inj) 4 mg Q6H PRN IV 10/06/16 19:15 11/05/16 19:14 Insulin Aspart (novoLOG ASPART) SLIDING SCALE If C... ACHS SC 10/06/16 21:00 11/05/16 20:59 10/16/16 12:03 3 UNITS Glucose (Glucose 40% Gel) 15-30 GRAMS 15 GRAMS... UD PRN PO 10/06/16 19:30 11/05/16 19:29 Glucose (Glucose Chew Tab) 4-8 Tablets 4 Tabl... UD PRN PO 10/06/16 19:30 11/05/16 19:29 Dextrose (Dextrose 50% 50ML Syringe) 25-50ML OF 50% DW IV FOR... UD PRN IV 10/06/16 19:30 11/05/16 19:29 Glucagon (Glucagon Inj) 1 mg UD PRN SQ 10/06/16 19:30 11/05/16 19:29 Amlodipine Besylate (Norvasc Tab) 5 mg DAILY PO 10/07/16 09:00 11/06/16 08:59 10/16/16 08:12 5 MG Aspirin (Ecotrin Tab) 81 mg DAILY PO 10/07/16 09:00 11/06/16 08:59 10/16/16 08:11 81 MG Atorvastatin Calcium (Lipitor Tab) 40 mg HS PO 10/06/16 21:00 11/05/16 20:59 10/15/16 20:44 40 MG Miscellaneous Information (Consult Glycemic Management Pharmacy) 1 ea UD N/A 10/08/16 12:55 11/07/16 12:54 Docusate Sodium (coLACE CAP) 100 mg BID PO 10/08/16 21:00 11/07/16 20:59 10/12/16 07:53 100 MG Polyethylene (Miralax Powder Packet) 17 gm DAILY PRN PO 10/08/16 17:00 11/07/16 16:59 10/08/16 17:13 17 GM Metoprolol Tartrate (Lopressor Iv) 5 mg Q4 PRN IV 10/09/16 12:00 11/08/16 11:59 10/13/16 22:43 5 MG Guaifenesin (Mucinex Contr Rel Tab) 600 mg Q12 PO 10/11/16 21:00 11/10/16 20:59 10/16/16 08:11 600 MG Guaifenesin (Robitussin Sugar Free Syrup) 100 mg Q6H PRN PO 10/11/16 15:15 11/10/16 15:14 10/12/16 04:44 100 MG Alprazolam (Xanax Tab) 0.25 mg Q12H PRN PO 10/12/16 15:00 11/11/16 14:59 10/14/16 21:27 0.25 MG Doxycycline Hyclate (Vibramycin Cap) 100 mg BID PO 10/13/16 21:00 10/23/16 20:59 10/16/16 08:13 100 MG Metoprolol Succinate (Toprol Xl Tab) 25 mg BID PO 10/14/16 21:00 11/13/16 20:59 10/16/16 08:13 25 MG Warfarin Sodium (Coumadin Tab) 5 mg DAILY@16 PO 10/14/16 16:00 11/13/16 15:59 10/15/16 16:47 5 MG Amiodarone HCl (Cordarone Tab) 200 mg Q6 PO 10/14/16 18:00 11/13/16 17:59 10/16/16 11:23 200 MG Ipratropium [place] (Atrovent Hfa Inhaler) 2 puffs Q4 PRN INH 10/15/16 16:00 11/14/16 15:59 Levalbuterol (Xopenex 0.63 Mg/ 3 Ml Neb) 0.63 mg Q6R PRN INH 10/15/16 12:15 11/14/16 12:14 Isosorbide Mononitrate (Imdur Ext Rel Tab) 30 mg QAM PO 10/17/16 09:00 11/16/16 08:59 Furosemide (Lasix tab) 20 mg DAILY PO 10/17/16 09:00 11/16/16 08:59 Insulin Glargine (Lantus Solostar Pen) 10 unit BID SC 10/16/16 21:00 11/15/16 20:59
[2016-10-16] MEDS: WARFARIN SOD 5 MG TAB PO SCH (16:17)
[2016-10-16] MEDS: ATORVASTATIN 40 MG TAB PO SCH (20:33)
[2016-10-17] MEDS: AMIODARONE 200 MG TAB PO SCH ×5 (00:19→22:59)
[2016-10-17 04:27] VITALS: BP 136/62; PULSE 74; TEMP 36.6; O2SAT 97
[2016-10-17 06:36] LABS: INR 2.2 (0.9-1.1); PROTHROMBIN TIME (PATIENT) 24.9 SECONDS (9.0-12.0)
[2016-10-17 07:05] LABS: CALCIUM 8.2 mg/dl (8.5-10.1); CREATININE 1.8 mg/dl (0.60-1.20); POTASSIUM 4.2 mmol/L (3.5-5.1)
[2016-10-17 07:34] VITALS: BP 141/78; PULSE 84; TEMP 36.7; O2SAT 94
--- NOTE | 2016-10-17 07:42 | DIAGNOSTIC IMAGING REPORT ---
CHEST ONE VIEW PORTABLE CLINICAL HISTORY: CHF, influenza COMPARISON STUDY: 10/12/2016 FINDINGS: The heart is mildly enlarged. There is improving congestive failure. There are decreasing bilateral pleural effusions and improving aeration of the lung bases.[ IMPRESSION: Improving congestive failure with decreasing pleural effusions and improving aeration of the lung bases. Electronically signed by: Satinder Strauss M.D. 10/17/2016 7:39 AM
[2016-10-17] MEDS: INSULIN ASPART 100 UNITS/ML 3 ML PEN SC SCH ×4 (08:30→22:58)
[2016-10-17] MEDS: ASPIRIN 81 MG ECTAB PO SCH (08:33)
[2016-10-17] MEDS: DOCUSATE SODIUM 100 MG CAP PO SCH ×2 (08:33→19:34)
[2016-10-17] MEDS: FUROSEMIDE 20 MG TAB PO SCH (08:34)
[2016-10-17] MEDS: ISOSORBIDE MONONITRATE 30 MG TABCR PO SCH (08:34)
[2016-10-17] MEDS: METOPROLOL SUCC 25MG EXT REL TAB PO SCH ×2 (08:35→22:59)
[2016-10-17] MEDS: GUAIFENESIN 600 MG TABCR PO SCH ×2 (08:35→21:00)
[2016-10-17] MEDS: AMLODIPINE BESYLATE 5 MG TAB PO SCH (08:35)
[2016-10-17] MEDS ORDERED: INSULIN GLARGINE SOLOSTAR 100 UNITS/ML 3 ML PEN SC ONE (09:00)
[2016-10-17] MEDS: DOXYCYCLINE HYCLATE 100 MG CAP PO SCH ×2 (09:06→22:59)
[2016-10-17 11:32] VITALS: BP 124/74; PULSE 67; TEMP 36.9; O2SAT 94
[2016-10-17 15:43] VITALS: BP 123/74; PULSE 72; TEMP 36.9; O2SAT 97
[2016-10-17] MEDS: WARFARIN SOD 5 MG TAB PO SCH (16:08)
[2016-10-17 19:24] VITALS: BP 135/64; PULSE 74; TEMP 36.6; O2SAT 96
[2016-10-17] MEDS: INSULIN GLARGINE SOLOSTAR 100 UNITS/ML 3 ML PEN SC SCH (22:58)
[2016-10-17] MEDS: ATORVASTATIN 40 MG TAB PO SCH (22:59)
--- NOTE | 2016-10-17 23:12 | Progress Note ---
Medicine Progress Note Date & Time of Visit: Oct 17, 2016 at 10:30 . Subjective No fever. No chest pain. Occasional mild cough. Less SOB. No nausea, vomiting, diarrhea. Still has Rgay, willing to DC. . Objective Last 8 Hrs Date Time Temp Pulse Resp B/P Pulse Ox O2 Delivery O2 Flow Rate FiO2 10/17/16 20:00 Nasal Cannula 1.0 10/17/16 19:24 36.6 74 22 135/64 96 Nasal Cannula 2.0 10/17/16 16:00 Nasal Cannula 2.0 10/17/16 15:43 36.9 72 24 123/74 97 Room Air Physical Exam: General- no acute distress Eyes- anicteric Neck- + JVD Lungs- mild wheezing, few basilar rales Heart- regular, no gallop appreciated Abdomen- + bowel sounds, soft, nontender - Gray catheter Extremities- 1-2+ pretibial edema; no calf tenderness Neuro- alert, oriented . Laboratory Results: Last 24 Hours Test 10/17/16 05:29 10/17/16 06:26 10/17/16 11:17 10/17/16 20:12 Prothrombin Time 24.9 SECONDS Prothromb Time International Ratio 2.2 Sodium Level 131 mmol/L Potassium Level 4.2 mmol/L Chloride Level 97 mmol/L Carbon Dioxide Level 23 mmol/L Anion Gap 11.0 mmol/L Blood Urea Nitrogen 38 mg/dl Creatinine 1.80 mg/dl Est Creatinine Clear Calc Drug Dose 21.3 ml/min Estimated GFR () 28.6 Estimated GFR (Non- 24.7 BUN/Creatinine Ratio 21.0 Random Glucose 100 mg/dl Calcium Level 8.2 mg/dl Bedside Glucose 106 mg/dl 166 mg/dl 169 mg/dl Diagnostic Imaging: CHEST ONE VIEW PORTABLE CLINICAL HISTORY: CHF, influenza COMPARISON STUDY: 10/12/2016 FINDINGS: The heart is mildly enlarged. There is improving congestive failure. There are decreasing bilateral pleural effusions and improving aeration of the lung bases.[ IMPRESSION: Improving congestive failure with decreasing pleural effusions and improving aeration of the lung bases. Electronically signed by: Satinder Strauss M.D. 10/17/2016 7:39 AM . 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 Completed course oseltamivir. ACUTE HYPOXIC RESPIRATORY FAILURE Developed acute hypoxic respiratory failure. Probably due to combination of influenza, possible pneumonia, pulmonary edema. Pulmonary status improved. Wean oxygen as tolerated. POSSIBLE PNEUMONIA Imaging demonstrated possible infiltrate right base. Possible influenza associated pneumonia. Continue doxycycline. ATRIAL FIB / FLUTTER Developed atrial fib / flutter with rapid ventricular response. Cardiology consulted. Now in normal sinus rhythm. Continue metoprolol, amiodarone, warfarin. PULMONARY EDEMA Pulmonary edema noted on imaging. Echo showed normal left ventricular systolic function. Pulmonary edema probably secondary to combination of acute left ventricular diastolic failure, tachyarrhythmias, IV fluids. Chest x-ray today shows improvement. Continue furosemide. ELEVATED TROPONIN Suspected demand ischemia. HYPERTENSION Blood pressures well-controlled. Continue metoprolol, amlodipine, nitrates. ACUTE KIDNEY INJURY Serum creatinine 1.7 on admission and emma as high as 1.9. Creatinine today = 1.8. Follow. DIABETES MELLITUS TYPE 2 Uncontrolled. Random blood sugar 450 day of admission. Hemoglobin A1c 12.7. Receiving Lantus/NovoLog per protocol. Fasting blood sugar today = 106 DYSLIPIDEMIA Continue atorvastatin. 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 Will need outpatient follow-up as clinically indicated. VTE PROPHYLAXIS Continue warfarin. DISPOSITION Anticipated need for skilled care. Case Management consulted. Referral made to [facility]. Internal Medicine follow-up with Dr. Dominguez. Components of this document were electronically copied and updated from the last documentation created by the undersigned in order to maintain a complete, accurate, and current record. Any portion of this document created by another author, if any, will be attributed to them. I certify that the record accurately reflects the patient's current status and services provided on the date of service. . Current Inpatient Medications: Current Inpatient Medications Medications (Trade) Dose Ordered Sig/Mustapha Route Start Time Stop Time Status Last Admin Dose Admin Acetaminophen (Tylenol Tab) 650 mg Q4H PRN PO 10/06/16 19:15 11/05/16 19:14 Ondansetron HCl (Zofran Inj) 4 mg Q6H PRN IV 10/06/16 19:15 11/05/16 19:14 Insulin Aspart (novoLOG ASPART) SLIDING SCALE If C... ACHS SC 10/06/16 21:00 11/05/16 20:59 10/17/16 22:58 1 UNITS Glucose (Glucose 40% Gel) 15-30 GRAMS 15 GRAMS... UD PRN PO 10/06/16 19:30 11/05/16 19:29 Glucose (Glucose Chew Tab) 4-8 Tablets 4 Tabl... UD PRN PO 10/06/16 19:30 11/05/16 19:29 Dextrose (Dextrose 50% 50ML Syringe) 25-50ML OF 50% DW IV FOR... UD PRN IV 10/06/16 19:30 11/05/16 19:29 Glucagon (Glucagon Inj) 1 mg UD PRN SQ 10/06/16 19:30 11/05/16 19:29 Amlodipine Besylate (Norvasc Tab) 5 mg DAILY PO 10/07/16 09:00 11/06/16 08:59 10/17/16 08:35 5 MG Aspirin (Ecotrin Tab) 81 mg DAILY PO 10/07/16 09:00 11/06/16 08:59 10/17/16 08:33 81 MG Atorvastatin Calcium (Lipitor Tab) 40 mg HS PO 10/06/16 21:00 11/05/16 20:59 10/17/16 22:59 40 MG Miscellaneous Information (Consult Glycemic Management Pharmacy) 1 ea UD N/A 10/08/16 12:55 11/07/16 12:54 Docusate Sodium (coLACE CAP) 100 mg BID PO 10/08/16 21:00 11/07/16 20:59 10/12/16 07:53 100 MG Polyethylene (Miralax Powder Packet) 17 gm DAILY PRN PO 10/08/16 17:00 11/07/16 16:59 10/08/16 17:13 17 GM Metoprolol Tartrate (Lopressor Iv) 5 mg Q4 PRN IV 10/09/16 12:00 11/08/16 11:59 10/13/16 22:43 5 MG Guaifenesin (Mucinex Contr Rel Tab) 600 mg Q12 PO 10/11/16 21:00 11/10/16 20:59 10/16/16 08:11 600 MG Guaifenesin (Robitussin Sugar Free Syrup) 100 mg Q6H PRN PO 10/11/16 15:15 11/10/16 15:14 10/12/16 04:44 100 MG Alprazolam (Xanax Tab) 0.25 mg Q12H PRN PO 10/12/16 15:00 11/11/16 14:59 10/14/16 21:27 0.25 MG Doxycycline Hyclate (Vibramycin Cap) 100 mg BID PO 10/13/16 21:00 10/23/16 20:59 10/17/16 22:59 100 MG Metoprolol Succinate (Toprol Xl Tab) 25 mg BID PO 10/14/16 21:00 11/13/16 20:59 10/17/16 22:59 25 MG Warfarin Sodium (Coumadin Tab) 5 mg DAILY@16 PO 10/14/16 16:00 11/13/16 15:59 10/17/16 16:08 5 MG Amiodarone HCl (Cordarone Tab) 200 mg Q6 PO 10/14/16 18:00 11/13/16 17:59 10/17/16 22:59 200 MG Ipratropium [place] (Atrovent Hfa Inhaler) 2 puffs Q4 PRN INH 10/15/16 16:00 11/14/16 15:59 Levalbuterol (Xopenex 0.63 Mg/ 3 Ml Neb) 0.63 mg Q6R PRN INH 10/15/16 12:15 11/14/16 12:14 Isosorbide Mononitrate (Imdur Ext Rel Tab) 30 mg QAM PO 10/17/16 09:00 11/16/16 08:59 10/17/16 08:34 30 MG Furosemide (Lasix tab) 20 mg DAILY PO 10/17/16 09:00 11/16/16 08:59 10/17/16 08:34 20 MG Insulin Glargine (Lantus Solostar Pen) 10 unit BID SC 10/16/16 21:00 11/15/16 20:59 Future hold 10/17/16 22:58 10 UNIT
[2016-10-17 23:27] VITALS: BP 145/76; PULSE 83; TEMP 36.6; O2SAT 93
[2016-10-18] VITALS (8 sets, daily range): BP systolic 128–161; BP diastolic 56–70; PULSE 70–85; TEMP 36.3–37.1; O2SAT 93–96
[2016-10-18 06:25] LABS: HEMATOCRIT 30.7 % (37-47); MEAN CELL VOLUME 91.6 fL (80-100); MEAN CORPUSCULAR HEMOGLOBIN 32.2 pg (25-34); MEAN CORPUSCULAR HGB CONC 35.2 g/dl (32-36); MEAN PLATELET VOLUME 9.4 fL (7.4-10.4); PLATELET COUNT 499 K/uL (130-400); RED BLOOD COUNT 3.35 M/uL (4.2-5.4); WHITE BLOOD COUNT 10.53 K/uL (4.8-10.8)
[2016-10-18 06:34] LABS: INR 2.7 (0.9-1.1); PROTHROMBIN TIME (PATIENT) 29.9 SECONDS (9.0-12.0)
[2016-10-18] MEDS: AMIODARONE 200 MG TAB PO SCH ×3 (06:47→17:50)
[2016-10-18 06:58] LABS: BUN/CREATININE RATIO 21.8 (10-20); CALCIUM 8.5 mg/dl (8.5-10.1); CREATININE 1.8 mg/dl (0.60-1.20); POTASSIUM 3.7 mmol/L (3.5-5.1)
[2016-10-18] MEDS: DOCUSATE SODIUM 100 MG CAP PO SCH ×2 (08:21→21:45)
[2016-10-18] MEDS: ASPIRIN 81 MG ECTAB PO SCH (08:22)
[2016-10-18] MEDS: ISOSORBIDE MONONITRATE 30 MG TABCR PO SCH (08:22)
[2016-10-18] MEDS: GUAIFENESIN 600 MG TABCR PO SCH ×2 (08:23→21:47)
[2016-10-18] MEDS: FUROSEMIDE 20 MG TAB PO SCH (08:23)
[2016-10-18] MEDS: METOPROLOL SUCC 25MG EXT REL TAB PO SCH ×2 (08:24→21:46)
[2016-10-18] MEDS: DOXYCYCLINE HYCLATE 100 MG CAP PO SCH ×2 (08:24→21:46)
[2016-10-18] MEDS: AMLODIPINE BESYLATE 5 MG TAB PO SCH (08:24)
[2016-10-18] MEDS: INSULIN ASPART 100 UNITS/ML 3 ML PEN SC SCH ×4 (08:30→21:00)
[2016-10-18] MEDS: INSULIN GLARGINE SOLOSTAR 100 UNITS/ML 3 ML PEN SC SCH ×2 (08:31→21:49)
--- NOTE | 2016-10-18 14:13 | Pharmacy Progress Note ---
Glycemic: Assessment & Plan Date of Service Oct 18, 2016. Assessment & Plan Item Value Date Time Bedside Glucose 163 mg/dl H 10/18/16 1122 Bedside Glucose 102 mg/dl H 10/18/16 0631 Random Glucose 92 mg/dl 10/18/16 0535 Bedside Glucose 169 mg/dl H 10/17/162011 Bedside Glucose 166 mg/dl H 10/17/16 1117 Bedside Glucose 106 mg/dl H 10/17/16 0626 Random Glucose 100 mg/dl H 10/17/16 0529 10/14/16: The patient received 55 units of insulin. 10/15/16: The patient received 38 units of insulin. 10/16/16: The patient received 30 units of insulin. 10/17/16: The patient received 29 units of insulin. PLAN: Pt has necessitated a 1/2 dose of Lantus per parameters 10/17 and 10/18. Will decrease basal insulin dose starting this evening. * Basal insulin: Decreased Lantus to 7 units every 12 hours, 1/2 dose for BSG <120mg/dL * Correctional Insulin: Novolog Correction per scale ACHS Goal Range: Low 120 mg/dL - High 160 mg/dL Correction Factor: 25 mg/dL/unit * Prandial insulin: Per carb ratio of 1 unit per 8 grams CHO consumed Pharmacy will continue to monitor patient daily and write orders per [facility] inpatient glycemic control protocol. Thanks. * Please note that the plan above was derived based on current level of insulin resistance and hospital stress. These recommendations are appropriate for inpatient admission only. Plan of care upon discharge will need to be reassessed to avoid potential outpatient hypo/hyperglycemia.
[2016-10-18] MEDS: WARFARIN SOD 5 MG TAB PO SCH (16:00)
--- NOTE | 2016-10-18 20:51 | Progress Note ---
Medicine Progress Note Date & Time of Visit: Oct 18, 2016 at 14:05 . Subjective Out of bed, sitting in chair. Fever. No chest pain. Occasional mild nonproductive cough. Less short of breath. No nausea, vomiting, diarrhea. Gray removed yesterday; voiding without difficulty. . Objective Last 8 Hrs Date Time Temp Pulse Resp B/P Pulse Ox O2 Delivery O2 Flow Rate FiO2 10/18/16 19:25 36.6 85 18 128/66 94 Room Air 10/18/16 18:35 36.7 75 24 96 10/18/16 16:00 Room Air 10/18/16 15:32 36.7 75 24 148/62 96 Room Air Physical Exam: General- sitting in chair, no acute distress Neck- + JVD Lungs- few basilar rales Heart- regular, no gallop appreciated Abdomen- + bowel sounds, soft, nontender Extremities- 2+ pretibial edema; no calf tenderness Neuro- alert, oriented . Laboratory Results: Last 24 Hours Test 10/18/16 05:35 10/18/16 06:31 10/18/16 11:22 10/18/16 16:24 White Blood Count 10.53 K/uL Red Blood Count 3.35 M/uL Hemoglobin 10.8 g/dL Hematocrit 30.7 % Mean Corpuscular Volume 91.6 fL Mean Corpuscular Hemoglobin 32.2 pg Mean Corpuscular Hemoglobin Concent 35.2 g/dl RDW Standard Deviation 40.8 fL RDW Coefficient of Variation 12.0 % Platelet Count 499 K/uL Mean Platelet Volume 9.4 fL Prothrombin Time 29.9 SECONDS Prothromb Time International Ratio 2.7 Sodium Level 131 mmol/L Potassium Level 3.7 mmol/L Chloride Level 95 mmol/L Carbon Dioxide Level 26 mmol/L Anion Gap 10.0 mmol/L Blood Urea Nitrogen 39 mg/dl Creatinine 1.80 mg/dl Est Creatinine Clear Calc Drug Dose 20.8 ml/min Estimated GFR () 28.4 Estimated GFR (Non- 24.5 BUN/Creatinine Ratio 21.8 Random Glucose 92 mg/dl Calcium Level 8.5 mg/dl Bedside Glucose 102 mg/dl 163 mg/dl 116 mg/dl Test 10/18/16 20:27 Bedside Glucose 146 mg/dl Assessment & Plan INFLUENZA 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 Completed course oseltamivir. ACUTE HYPOXIC RESPIRATORY FAILURE Developed acute hypoxic respiratory failure. Probably due to combination of influenza, possible pneumonia, pulmonary edema. Pulmonary status improved. Saturating well on room air during the day, still hypoxic during the night. Wean oxygen as tolerated. POSSIBLE PNEUMONIA Imaging demonstrated possible infiltrate right base. Possible influenza associated pneumonia. Continue doxycycline. ATRIAL FIB / FLUTTER Developed atrial fib / flutter with rapid ventricular response. Cardiology consulted. Now in normal sinus rhythm. Continue metoprolol, amiodarone, warfarin. PULMONARY EDEMA Pulmonary edema noted on imaging. Echo showed normal left ventricular systolic function. Pulmonary edema probably secondary to combination of acute left ventricular diastolic failure, tachyarrhythmias, IV fluids. Chest x-ray yesterday showed improvement. Continue furosemide. ELEVATED TROPONIN Suspected demand ischemia. HYPERTENSION Blood pressures well-controlled. Continue metoprolol, amlodipine, nitrates. ACUTE KIDNEY INJURY Serum creatinine 1.7 on admission and emma as high as 1.9. Creatinine today = 1.8. Follow. DIABETES MELLITUS TYPE 2 Uncontrolled. Random blood sugar 450 day of admission. Hemoglobin A1c 12.7. Fasting blood sugar today = 102 Received Lantus/NovoLog per protocol. DYSLIPIDEMIA Continue atorvastatin. 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 Will need outpatient follow-up as clinically indicated. VTE PROPHYLAXIS Continue warfarin. DISPOSITION Anticipated need for skilled care. Case Management consulted. Referral made to Odette Amanda. Internal Medicine follow-up with Dr. Dominguez. Components of this document were electronically copied and updated from the last documentation created by the undersigned in order to maintain a complete, accurate, and current record. Any portion of this document created by another author, if any, will be attributed to them. I certify that the record accurately reflects the patient's current status and services provided on the date of service. . Current Inpatient Medications: Current Inpatient Medications Medications (Trade) Dose Ordered Sig/Mustapha Route Start Time Stop Time Status Last Admin Dose Admin Acetaminophen (Tylenol Tab) 650 mg Q4H PRN PO 10/06/16 19:15 11/05/16 19:14 Ondansetron HCl (Zofran Inj) 4 mg Q6H PRN IV 10/06/16 19:15 11/05/16 19:14 Insulin Aspart (novoLOG ASPART) SLIDING SCALE If C... ACHS SC 10/06/16 21:00 11/05/16 20:59 10/18/16 17:48 2 UNITS Glucose (Glucose 40% Gel) 15-30 GRAMS 15 GRAMS... UD PRN PO 10/06/16 19:30 11/05/16 19:29 Glucose (Glucose Chew Tab) 4-8 Tablets 4 Tabl... UD PRN PO 10/06/16 19:30 11/05/16 19:29 Dextrose (Dextrose 50% 50ML Syringe) 25-50ML OF 50% DW IV FOR... UD PRN IV 10/06/16 19:30 11/05/16 19:29 Glucagon (Glucagon Inj) 1 mg UD PRN SQ 10/06/16 19:30 11/05/16 19:29 Amlodipine Besylate (Norvasc Tab) 5 mg DAILY PO 10/07/16 09:00 11/06/16 08:59 10/18/16 08:24 5 MG Aspirin (Ecotrin Tab) 81 mg DAILY PO 10/07/16 09:00 11/06/16 08:59 10/18/16 08:22 81 MG Atorvastatin Calcium (Lipitor Tab) 40 mg HS PO 10/06/16 21:00 11/05/16 20:59 10/17/16 22:59 40 MG Miscellaneous Information (Consult Glycemic Management Pharmacy) 1 ea UD N/A 10/08/16 12:55 11/07/16 12:54 Docusate Sodium (coLACE CAP) 100 mg BID PO 10/08/16 21:00 11/07/16 20:59 10/12/16 07:53 100 MG Polyethylene (Miralax Powder Packet) 17 gm DAILY PRN PO 10/08/16 17:00 11/07/16 16:59 10/08/16 17:13 17 GM Metoprolol Tartrate (Lopressor Iv) 5 mg Q4 PRN IV 10/09/16 12:00 11/08/16 11:59 10/13/16 22:43 5 MG Guaifenesin (Mucinex Contr Rel Tab) 600 mg Q12 PO 10/11/16 21:00 11/10/16 20:59 10/16/16 08:11 600 MG Guaifenesin (Robitussin Sugar Free Syrup) 100 mg Q6H PRN PO 10/11/16 15:15 11/10/16 15:14 10/12/16 04:44 100 MG Alprazolam (Xanax Tab) 0.25 mg Q12H PRN PO 10/12/16 15:00 11/11/16 14:59 10/14/16 21:27 0.25 MG Doxycycline Hyclate (Vibramycin Cap) 100 mg BID PO 10/13/16 21:00 10/23/16 20:59 10/18/16 08:24 100 MG Metoprolol Succinate (Toprol Xl Tab) 25 mg BID PO 10/14/16 21:00 11/13/16 20:59 10/18/16 08:24 25 MG Warfarin Sodium (Coumadin Tab) 5 mg DAILY@16 PO 10/14/16 16:00 11/13/16 15:59 10/18/16 16:00 5 MG Amiodarone HCl (Cordarone Tab) 200 mg Q6 PO 10/14/16 18:00 11/13/16 17:59 10/18/16 17:50 200 MG Ipratropium [place] (Atrovent Hfa Inhaler) 2 puffs Q4 PRN INH 10/15/16 16:00 11/14/16 15:59 Levalbuterol (Xopenex 0.63 Mg/ 3 Ml Neb) 0.63 mg Q6R PRN INH 10/15/16 12:15 11/14/16 12:14 Isosorbide Mononitrate (Imdur Ext Rel Tab) 30 mg QAM PO 10/17/16 09:00 11/16/16 08:59 10/18/16 08:22 30 MG Furosemide (Lasix tab) 20 mg DAILY PO 10/17/16 09:00 11/16/16 08:59 10/18/16 08:23 20 MG Insulin Glargine (Lantus Solostar Pen) 7 unit BID SC 10/18/16 21:00 11/17/16 20:59
[2016-10-18] MEDS: ATORVASTATIN 40 MG TAB PO SCH (21:47)
[2016-10-19 00:05] VITALS: O2SAT 94
[2016-10-19] MEDS: AMIODARONE 200 MG TAB PO SCH ×4 (00:58→17:35)
[2016-10-19 08:00] VITALS: BP 129/68; PULSE 86; TEMP 36.5; O2SAT 96
[2016-10-19 08:07] LABS: INR 2.8 (0.9-1.1); PROTHROMBIN TIME (PATIENT) 31.1 SECONDS (9.0-12.0)
[2016-10-19 08:24] LABS: BUN/CREATININE RATIO 23.6 (10-20); CALCIUM 8.3 mg/dl (8.5-10.1); CREATININE 1.7 mg/dl (0.60-1.20); POTASSIUM 4.2 mmol/L (3.5-5.1)
[2016-10-19] MEDS: GUAIFENESIN 600 MG TABCR PO SCH ×4 (09:00→21:38)
[2016-10-19] MEDS: DOCUSATE SODIUM 100 MG CAP PO SCH ×4 (09:00→21:38)
[2016-10-19] MEDS: ASPIRIN 81 MG ECTAB PO SCH (09:23)
[2016-10-19] MEDS: AMLODIPINE BESYLATE 5 MG TAB PO SCH (09:24)
[2016-10-19] MEDS: FUROSEMIDE 20 MG TAB PO SCH (09:24)
[2016-10-19] MEDS: ISOSORBIDE MONONITRATE 30 MG TABCR PO SCH (09:26)
[2016-10-19] MEDS: DOXYCYCLINE HYCLATE 100 MG CAP PO SCH ×2 (09:26→21:39)
[2016-10-19] MEDS: METOPROLOL SUCC 25MG EXT REL TAB PO SCH ×2 (09:27→21:38)
[2016-10-19] MEDS: INSULIN ASPART 100 UNITS/ML 3 ML PEN SC SCH ×4 (09:31→21:00)
[2016-10-19] MEDS: INSULIN GLARGINE SOLOSTAR 100 UNITS/ML 3 ML PEN SC SCH ×2 (09:31→21:18)
[2016-10-19 12:19] VITALS: BP 103/64; PULSE 83; TEMP 37.4; O2SAT 94
[2016-10-19 15:15] VITALS: BP 136/76; PULSE 71; TEMP 36.8; O2SAT 95
[2016-10-19 16:00] VITALS: O2SAT 95
[2016-10-19] MEDS ORDERED: WARFARIN SOD 2.5 MG TAB PO ONE (16:00)
[2016-10-19 19:00] VITALS: BP 169/66; PULSE 80; TEMP 36.8; O2SAT 96
--- NOTE | 2016-10-19 20:51 | Progress Note ---
Medicine Progress Note Date & Time of Visit: Oct 19, 2016 at 16:30 . Subjective No new concerns. No fever. Minimal cough. No SOB. No chest pain. No nausea, vomiting, diarrhea. Voiding without difficulty. . Objective Last 8 Hrs Date Time Temp Pulse Resp B/P Pulse Ox O2 Delivery O2 Flow Rate FiO2 10/19/16 20:00 Room Air 10/19/16 19:00 36.8 80 18 169/66 96 Room Air 10/19/16 16:00 95 Room Air 10/19/16 15:15 36.8 71 18 136/76 95 Room Air Physical Exam: General- no acute distress Neck- slight JVD Lungs- clear to auscultation Heart- RRR Abdomen- + bowel sounds, soft, nontender Extremities- 2+ pretibial edema; no calf tenderness Neuro- alert, oriented . 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 Completed course oseltamivir. ACUTE HYPOXIC RESPIRATORY FAILURE Developed acute hypoxic respiratory failure. Probably due to combination of influenza, possible pneumonia, pulmonary edema. Pulmonary status improved. Supplemental oxygen weaned and discontinued. POSSIBLE PNEUMONIA Imaging demonstrated possible infiltrate right base. Possible influenza associated pneumonia. Continue doxycycline- day # 6. ATRIAL FIB / FLUTTER Developed atrial fib / flutter with rapid ventricular response. Cardiology consulted. Now in normal sinus rhythm. Continue metoprolol, amiodarone, warfarin. PULMONARY EDEMA Pulmonary edema noted on imaging. Echo showed normal left ventricular systolic function. Pulmonary edema probably secondary to combination of acute left ventricular diastolic failure, tachyarrhythmias, IV fluids. Chest x-ray 10/17 showed improvement. Continue furosemide. ELEVATED TROPONIN Suspected demand ischemia. HYPERTENSION Blood pressures well-controlled. Continue metoprolol, amlodipine, nitrates. ACUTE KIDNEY INJURY Serum creatinine 1.7 on admission and emma as high as 1.9. Creatinine today = 1.7. Follow. DIABETES MELLITUS TYPE 2 Uncontrolled. Random blood sugar 450 day of admission. Hemoglobin A1c 12.7. Fasting blood sugar today = 170 Lantus/NovoLog per protocol. DYSLIPIDEMIA Continue atorvastatin. 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 Will need outpatient follow-up as clinically indicated. VTE PROPHYLAXIS Continue warfarin. DISPOSITION Anticipated need for skilled care. Case Management consulted. Referral made to Odette Amanda. Internal Medicine follow-up with Dr. Dominguez. Components of this document were electronically copied and updated from the last documentation created by the undersigned in order to maintain a complete, accurate, and current record. Any portion of this document created by another author, if any, will be attributed to them. I certify that the record accurately reflects the patient's current status and services provided on the date of service. . Current Inpatient Medications: Current Inpatient Medications Medications (Trade) Dose Ordered Sig/Mustapha Route Start Time Stop Time Status Last Admin Dose Admin Acetaminophen (Tylenol Tab) 650 mg Q4H PRN PO 10/06/16 19:15 11/05/16 19:14 Ondansetron HCl (Zofran Inj) 4 mg Q6H PRN IV 10/06/16 19:15 11/05/16 19:14 Insulin Aspart (novoLOG ASPART) SLIDING SCALE If C... ACHS SC 10/06/16 21:00 11/05/16 20:59 10/19/16 17:37 6 UNITS Glucose (Glucose 40% Gel) 15-30 GRAMS 15 GRAMS... UD PRN PO 10/06/16 19:30 11/05/16 19:29 Glucose (Glucose Chew Tab) 4-8 Tablets 4 Tabl... UD PRN PO 10/06/16 19:30 11/05/16 19:29 Dextrose (Dextrose 50% 50ML Syringe) 25-50ML OF 50% DW IV FOR... UD PRN IV 10/06/16 19:30 11/05/16 19:29 Glucagon (Glucagon Inj) 1 mg UD PRN SQ 10/06/16 19:30 11/05/16 19:29 Amlodipine Besylate (Norvasc Tab) 5 mg DAILY PO 10/07/16 09:00 11/06/16 08:59 10/19/16 09:24 5 MG Aspirin (Ecotrin Tab) 81 mg DAILY PO 10/07/16 09:00 11/06/16 08:59 10/19/16 09:23 81 MG Atorvastatin Calcium (Lipitor Tab) 40 mg HS PO 10/06/16 21:00 11/05/16 20:59 10/18/16 21:47 40 MG Miscellaneous Information (Consult Glycemic Management Pharmacy) 1 ea UD N/A 10/08/16 12:55 11/07/16 12:54 Docusate Sodium (coLACE CAP) 100 mg BID PO 10/08/16 21:00 11/07/16 20:59 10/18/16 21:45 100 MG Polyethylene (Miralax Powder Packet) 17 gm DAILY PRN PO 10/08/16 17:00 11/07/16 16:59 10/08/16 17:13 17 GM Metoprolol Tartrate (Lopressor Iv) 5 mg Q4 PRN IV 10/09/16 12:00 11/08/16 11:59 10/13/16 22:43 5 MG Guaifenesin (Mucinex Contr Rel Tab) 600 mg Q12 PO 10/11/16 21:00 11/10/16 20:59 10/18/16 21:47 600 MG Guaifenesin (Robitussin Sugar Free Syrup) 100 mg Q6H PRN PO 10/11/16 15:15 11/10/16 15:14 10/12/16 04:44 100 MG Alprazolam (Xanax Tab) 0.25 mg Q12H PRN PO 10/12/16 15:00 11/11/16 14:59 10/14/16 21:27 0.25 MG Doxycycline Hyclate (Vibramycin Cap) 100 mg BID PO 10/13/16 21:00 10/23/16 20:59 10/19/16 09:26 100 MG Metoprolol Succinate (Toprol Xl Tab) 25 mg BID PO 10/14/16 21:00 11/13/16 20:59 10/19/16 09:27 25 MG Warfarin Sodium (Coumadin Tab) 5 mg DAILY@16 PO 10/14/16 16:00 11/13/16 15:59 Future Hold 10/18/16 16:00 5 MG Amiodarone HCl (Cordarone Tab) 200 mg Q6 PO 10/14/16 18:00 11/13/16 17:59 10/19/16 17:35 200 MG Ipratropium [place] (Atrovent Hfa Inhaler) 2 puffs Q4 PRN INH 10/15/16 16:00 11/14/16 15:59 Levalbuterol (Xopenex 0.63 Mg/ 3 Ml Neb) 0.63 mg Q6R PRN INH 10/15/16 12:15 11/14/16 12:14 Isosorbide Mononitrate (Imdur Ext Rel Tab) 30 mg QAM PO 10/17/16 09:00 11/16/16 08:59 10/19/16 09:26 30 MG Furosemide (Lasix tab) 20 mg DAILY PO 10/17/16 09:00 11/16/16 08:59 10/19/16 09:24 20 MG Insulin Glargine (Lantus Solostar Pen) 7 unit BID SC 10/18/16 21:00 11/17/16 20:59 10/19/16 09:31 7 UNIT
[2016-10-19] MEDS: ATORVASTATIN 40 MG TAB PO SCH (21:38)
[2016-10-20] MEDS: AMIODARONE 200 MG TAB PO SCH ×3 (00:13→13:13)
[2016-10-20 00:16] VITALS: BP 150/73; PULSE 76
[2016-10-20 00:25] VITALS: BP 157/64; PULSE 73; TEMP 36.6; O2SAT 98
[2016-10-20 05:43] LABS: HEMATOCRIT 29.9 % (37-47); MEAN CELL VOLUME 91.2 fL (80-100); MEAN CORPUSCULAR HGB CONC 35.1 g/dl (32-36); PLATELET COUNT 470 K/uL (130-400); RED BLOOD COUNT 3.28 M/uL (4.2-5.4); WHITE BLOOD COUNT 10.21 K/uL (4.8-10.8)
[2016-10-20 05:50] VITALS: BP 138/78; PULSE 74
[2016-10-20 05:51] LABS: INR 2.9 (0.9-1.1); PROTHROMBIN TIME (PATIENT) 31.9 SECONDS (9.0-12.0)
[2016-10-20 06:15] LABS: BUN/CREATININE RATIO 19.1 (10-20); CALCIUM 8.3 mg/dl (8.5-10.1); CREATININE 1.9 mg/dl (0.60-1.20); POTASSIUM 3.9 mmol/L (3.5-5.1)
[2016-10-20 07:17] VITALS: BP 151/66; PULSE 71; TEMP 36.6; O2SAT 94
[2016-10-20] MEDS: GUAIFENESIN 600 MG TABCR PO SCH (09:00)
[2016-10-20] MEDS: DOCUSATE SODIUM 100 MG CAP PO SCH (09:00)
[2016-10-20] MEDS: FUROSEMIDE 20 MG TAB PO SCH (09:21)
[2016-10-20] MEDS: ASPIRIN 81 MG ECTAB PO SCH (09:21)
[2016-10-20] MEDS: AMLODIPINE BESYLATE 5 MG TAB PO SCH (09:21)
[2016-10-20] MEDS: METOPROLOL SUCC 25MG EXT REL TAB PO SCH (09:22)
[2016-10-20] MEDS: DOXYCYCLINE HYCLATE 100 MG CAP PO SCH (09:22)
[2016-10-20] MEDS: ISOSORBIDE MONONITRATE 30 MG TABCR PO SCH (09:23)
[2016-10-20] MEDS: INSULIN ASPART 100 UNITS/ML 3 ML PEN SC SCH ×2 (09:28→13:17)
[2016-10-20] MEDS: INSULIN GLARGINE SOLOSTAR 100 UNITS/ML 3 ML PEN SC SCH (09:29)
--- NOTE | 2016-10-20 10:02 | Pharmacy Progress Note ---
Glycemic Control: Progress Nt Date of Service Oct 20, 2016. Scope Glycemic Pharmacist consulted by Dr Schmid on 10/08/16 for glycemic control and to write orders per [facility] inpatient glycemic control protocol. Objective Accuchecks BSG (last 24hrs): Test 10/19/16 11:46 10/19/16 17:01 10/19/16 21:04 10/20/16 05:15 Bedside Glucose 181 mg/dl (70-90) 119 mg/dl (70-90) 131 mg/dl (70-90) Random Glucose 122 mg/dl (70-99) Test 10/20/16 07:36 Bedside Glucose 142 mg/dl (70-90) Laboratory Data (last 24hrs) Test 10/20/16 05:15 Anion Gap 7.0 mmol/L BUN/Creatinine Ratio 19.1 Blood Urea Nitrogen 36 mg/dl Creatinine 1.90 mg/dl Potassium Level 3.9 mmol/L Sodium Level 132 mmol/L White Blood Count 10.21 K/uL HbA1c: Test 10/07/16 05:15 Hemoglobin A1c 12.7 % (4.5-5.6) H Recent Pertinent Medications Outpatient Anti-diabetic Regimen: * Amaryl 4mg PO Daily * Januvia 100mg PO Daily The patient is currently receiving: * Basal insulin: Lantus 7 units every 12 hours * Correctional Insulin: Novolog Correction per scale ACHS Goal Range: Low 120 mg/dL - High 160 mg/dL Correction Factor: 25 mg/dL/unit * Prandial insulin: Per carb ratio of 1 unit per 8 grams CHO consumed Risk Factors for Insulin Resistance: * Infection * Diet * Baseline poor diabetes control Assessment & Plan ASSESSMENT: * 89yo T2DM female with subadequate control of diabetes as an outpatient per recent A1c of 12.7% 10/07/16 * Patient is maintained on oral agents of Amaryl + Januvia as an outpatient * Outpatient meds held on admission and patient started on SQ basal bolus insulin regimen of Lantus + NovoLog * Patient has been receiving ~ 30 units of insulin per day with adequate control * Regimen is split 50%:50% basal: prandial insulin which is the preferred regimen to prevent hypo when PO status changes * AM fasting BSG in goal range indicating adequate basal insulin coverage * Post-prandial BSGs in goal range indicating adequate CF/CR insulin dosing. * ADA & AACE recommend a goal blood sugar range 140-180 mg/dl for the majority of critically ill & non-critically ill patients. However, more stringent targets may be selected in individual cases. Will use a slightly more stringent target of 120-160mg/dl to facilitate infection healing. PLAN FOR INPATIENT GLYCEMIC CONTROL: * Hold outpatient oral diabetes medications * Basal insulin with LANTUS 7 units SQ BID * Administer 1/2 dose if BSG < 120mg/dl * Correctional Insulin with NOVOLOG per scale ACHS or Q6hrs while NPO * Goal Range: Low 120 mg/dL - High 160 mg/dL * Correction Factor: 25 mg/dL/unit * Nutritional / Prandial insulin per carb ratio of 1 unit per 8 grams CHO consumed RECOMMENDATIONS FOR DISCHARGE: * A1c = 12.7% patient will need insulin at discharge. * Lantus 15 units SQ Daily * NovoLog 5 units SQ Three times daily with meals * OR, may consider Novolin 70/30 pre-mixed insulin 10-15 units SQ Twice Daily with Meals. * Recommend d/c Amaryl at discharge when insulin is started --> combination can induce hypoglycemia. * Recommend d/c Januvia --> little efficacy in long-standing diabetes * Please note that the plan above was derived based on current level of insulin resistance and hospital stress. These recommendations are appropriate for inpatient admission only. Plan of care upon discharge will need to be reassessed to avoid potential outpatient hypo/hyperglycemia. Thank you.
--- NOTE | 2016-10-20 11:52 | Progress Note ---
Medicine Progress Note Date & Time of Visit: Oct 20, 2016 at 11:15 . Subjective No fever. No chest pain. No cough or SOB. Had upset stomach this morning- nausea, ? reflux. OK now. No abdominal pain. No diarrhea. Voiding without difficulty. . Objective Last 8 Hrs Date Time Temp Pulse Resp B/P Pulse Ox O2 Delivery O2 Flow Rate FiO2 10/20/16 08:00 Room Air 10/20/16 07:17 36.6 71 18 151/66 94 Room Air 10/20/16 05:50 74 138/78 Physical Exam: General- no distress Neck- no JVD in upright position Lungs- clear to auscultation Heart- RRR, II/ systolic murmur LSB Abdomen- + bowel sounds, soft, nontender Extremities- 2+ pretibial edema; no calf tenderness Neuro- alert, oriented . Laboratory Results: Last 24 Hours Test 10/19/16 11:46 10/19/16 17:01 10/19/16 21:04 10/20/16 05:15 Bedside Glucose 181 mg/dl 119 mg/dl 131 mg/dl White Blood Count 10.21 K/uL Red Blood Count 3.28 M/uL Hemoglobin 10.5 g/dL Hematocrit 29.9 % Mean Corpuscular Volume 91.2 fL Mean Corpuscular Hemoglobin 32.0 pg Mean Corpuscular Hemoglobin Concent 35.1 g/dl RDW Standard Deviation 40.2 fL RDW Coefficient of Variation 11.9 % Platelet Count 470 K/uL Mean Platelet Volume 9.0 fL Prothrombin Time 31.9 SECONDS Prothromb Time International Ratio 2.9 Sodium Level 132 mmol/L Potassium Level 3.9 mmol/L Chloride Level 96 mmol/L Carbon Dioxide Level 29 mmol/L Anion Gap 7.0 mmol/L Blood Urea Nitrogen 36 mg/dl Creatinine 1.90 mg/dl Est Creatinine Clear Calc Drug Dose 19.7 ml/min Estimated GFR () 26.6 Estimated GFR (Non- 23.0 BUN/Creatinine Ratio 19.1 Random Glucose 122 mg/dl Calcium Level 8.3 mg/dl Test 10/20/16 07:36 Bedside Glucose 142 mg/dl Assessment & Plan INFLUENZA A 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 Completed course oseltamivir. ACUTE HYPOXIC RESPIRATORY FAILURE Developed acute hypoxic respiratory failure. Probably due to combination of influenza, possible pneumonia, pulmonary edema. Pulmonary status improved. Supplemental oxygen weaned and discontinued. POSSIBLE PNEUMONIA Imaging demonstrated possible infiltrate right base. Possible influenza associated pneumonia. Treated with doxycycline to complete 7 day course of therapy. ATRIAL FIB / FLUTTER Developed atrial fib / flutter with rapid ventricular response. Cardiology consulted. Now in normal sinus rhythm. Started on amiodarone. Continue metoprolol, amiodarone, warfarin. INR has been rising over past several days, 2.9 today. Skip warfarin today. Start 2.5 mg daily 10/21. Follow and titrate to maintain INR 2-3. Reduce amiodarone to 200 mg BID until rechecked by Cardiology. Continue metoprolol succinate 25 mg BID. PULMONARY EDEMA Pulmonary edema noted on imaging. Echo showed normal left ventricular systolic function. Pulmonary edema probably secondary to combination of acute left ventricular diastolic failure, tachyarrhythmias, IV fluids. Chest x-ray 10/17 showed improvement. Persistent 2+ lower extremity edema and stable wts despite furosemide 20 mg daily. Increase furosemide to 40 mg daily. Follow exam, wts, BMP. ELEVATED TROPONIN Serum troponin 1.18, repeat 1.56. Echo showed normal LV wall motion and function. Suspected demand ischemia due to infectious process. HYPERTENSION Blood pressures well-controlled. Continue metoprolol, amlodipine, nitrates. ACUTE KIDNEY INJURY Baseline creatinine 0.96 06/16/16. Serum creatinine 1.7 on admission and emma as high as 1.9. Creatinine today = 1.9. Follow. DIABETES MELLITUS TYPE 2 - uncontrolled Managed with glimepiride and sitagliptin prior to discharge. Random blood sugar 450 day of admission. Hemoglobin A1c 12.7. Received Lantus/NovoLog per protocol. Fasting blood sugar today = 142 Tight control not indicated per current guidelines, but would like to see glycemic control somewhat better. Discharge on her usual outpatient regimen with NovoLog coverage AC + HS while at [facility]. Follow and titrate Rx. DYSLIPIDEMIA Continue atorvastatin. 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 CT 08/30/2006 that demonstrated similar lesion in tail of pancreas measuring 1.7cm in greatest diameter. CT 03/02/2007 that demonstrated similar lesion in tail of pancreas measuring 1.5 cm in greatest diameter. Lesion appears to be stable x 10 years, so no need for further evaluation or consultation. VTE PROPHYLAXIS Continue warfarin for AF. DISPOSITION Needs skilled care. Case Management consulted. Referral made to [facility]. Internal Medicine follow-up with Dr. Dominguez. Components of this document were electronically copied and updated from the last documentation created by the undersigned in order to maintain a complete, accurate, and current record. Any portion of this document created by another author, if any, will be attributed to them. I certify that the record accurately reflects the patient's current status and services provided on the date of service. . Consultants: Cardiology with Drs. Ramires and Jarrett . Procedures: IV meds cardiac monitoring echo CT abdomen + pelvis CT chest venous duplex lower extremities PT OT . Current Inpatient Medications: Current Inpatient Medications Medications (Trade) Dose Ordered Sig/[place] Route Start Time Stop Time Status Last Admin Dose Admin Acetaminophen (Tylenol Tab) 650 mg Q4H PRN PO 10/06/16 19:15 11/05/16 19:14 Ondansetron HCl (Zofran Inj) 4 mg Q6H PRN IV 10/06/16 19:15 11/05/16 19:14 Insulin Aspart (novoLOG ASPART) SLIDING SCALE If C... ACHS SC 10/06/16 21:00 11/05/16 20:59 10/20/16 09:28 5 UNITS Glucose (Glucose 40% Gel) 15-30 GRAMS 15 GRAMS... UD PRN PO 10/06/16 19:30 11/05/16 19:29 Glucose (Glucose Chew Tab) 4-8 Tablets 4 Tabl... UD PRN PO 10/06/16 19:30 11/05/16 19:29 Dextrose (Dextrose 50% 50ML Syringe) 25-50ML OF 50% DW IV FOR... UD PRN IV 10/06/16 19:30 11/05/16 19:29 Glucagon (Glucagon Inj) 1 mg UD PRN SQ 10/06/16 19:30 11/05/16 19:29 Amlodipine Besylate (Norvasc Tab) 5 mg DAILY PO 10/07/16 09:00 11/06/16 08:59 10/20/16 09:21 5 MG Aspirin (Ecotrin Tab) 81 mg DAILY PO 10/07/16 09:00 11/06/16 08:59 10/20/16 09:21 81 MG Atorvastatin Calcium (Lipitor Tab) 40 mg HS PO 10/06/16 21:00 11/05/16 20:59 10/19/16 21:38 40 MG Miscellaneous Information (Consult Glycemic Management Pharmacy) 1 ea UD N/A 10/08/16 12:55 11/07/16 12:54 Docusate Sodium (coLACE CAP) 100 mg BID PO 10/08/16 21:00 11/07/16 20:59 10/18/16 21:45 100 MG Polyethylene (Miralax Powder Packet) 17 gm DAILY PRN PO 10/08/16 17:00 11/07/16 16:59 10/08/16 17:13 17 GM Metoprolol Tartrate (Lopressor Iv) 5 mg Q4 PRN IV 10/09/16 12:00 11/08/16 11:59 10/13/16 22:43 5 MG Guaifenesin (Mucinex Contr Rel Tab) 600 mg Q12 PO 10/11/16 21:00 11/10/16 20:59 10/18/16 21:47 600 MG Guaifenesin (Robitussin Sugar Free Syrup) 100 mg Q6H PRN PO 10/11/16 15:15 11/10/16 15:14 10/12/16 04:44 100 MG Alprazolam (Xanax Tab) 0.25 mg Q12H PRN PO 10/12/16 15:00 11/11/16 14:59 10/14/16 21:27 0.25 MG Doxycycline Hyclate (Vibramycin Cap) 100 mg BID PO 10/13/16 21:00 10/23/16 20:59 10/20/16 09:22 100 MG Metoprolol Succinate (Toprol Xl Tab) 25 mg BID PO 10/14/16 21:00 11/13/16 20:59 10/20/16 09:22 25 MG Warfarin Sodium (Coumadin Tab) 5 mg DAILY@16 PO 10/14/16 16:00 11/13/16 15:59 Future Hold 10/18/16 16:00 5 MG Amiodarone HCl (Cordarone Tab) 200 mg Q6 PO 10/14/16 18:00 11/13/16 17:59 10/20/16 05:51 200 MG Ipratropium [place] (Atrovent Hfa Inhaler) 2 puffs Q4 PRN INH 10/15/16 16:00 11/14/16 15:59 Levalbuterol (Xopenex 0.63 Mg/ 3 Ml Neb) 0.63 mg Q6R PRN INH 10/15/16 12:15 11/14/16 12:14 Isosorbide Mononitrate (Imdur Ext Rel Tab) 30 mg QAM PO 10/17/16 09:00 11/16/16 08:59 10/20/16 09:23 30 MG Furosemide (Lasix tab) 20 mg DAILY PO 10/17/16 09:00 11/16/16 08:59 10/20/16 09:21 20 MG Insulin Glargine (Lantus Solostar Pen) 7 unit BID SC 10/18/16 21:00 11/17/16 20:59 10/20/16 09:29 7 UNIT
[2016-10-20 11:59] VITALS: BP 125/62; PULSE 68; TEMP 36.7; O2SAT 96
[2016-10-20] MEDS ORDERED: MRLP17X PO (12:23)
[2016-10-20] MEDS ORDERED: CMD/25 PO (12:23)
[2016-10-20] MEDS ORDERED: NVLGIPEN SQ (12:23)
[2016-10-20] MEDS ORDERED: FURO40TA3 PO (12:23)
[2016-10-20] MEDS ORDERED: TYL325X PO (12:23)
[2016-10-20] MEDS ORDERED: IMDSR30 PO (12:23)
[2016-10-20] MEDS ORDERED: TPRSR25 PO (12:23)
[2016-10-20] MEDS ORDERED: CLC100 PO (12:23)
[2016-10-20] MEDS ORDERED: CRD200 PO (12:23)
[2016-10-20] MEDS ORDERED: CALCTAB65 PO (12:24)
--- NOTE | 2016-10-20 12:33 | Discharge Instructions ---
Discharge Instructions Admission Reason for Admission: influenza A, acute kidney injury, DM type 2 poorly controlled Discharge Discharge Diagnosis / Problem: influenza A, acute kidney injury, DM type 2 poorly controlled, AF Discharge Goals Goal(s): Decrease discomfort, Improve function, Increase independence, Improve disease control Activity Recommendations Activity Level: Assistance Required Therapies: Physical Therapy, Occupational Therapy . Additional Information Patient informed of condition: Yes Advance Directives: Yes DNR: No Level of Care: Skilled Communicable Disease: No Prognosis: Improving Gray Catheter: No Instructions / Follow-Up Instructions / Follow-Up FOLLOW-UP APPOINTMENTS: INTERNAL MEDICINE Dr. Dominguez 1 week after DC from [facility] CARDIOLOGY Dr. Farias or one of his colleagues. 2-3 wks- around 11/01/16. Thank you for receiving this patient in transfer. Please call if you have any questions. Abdelrahman Fernandez . Current Hospital Diet Patient's current hospital diet: AHA Diet (Heart Healthy), Diabetes Type 2 Diet Discharge Diet Recommended Diet: AHA Diet (Heart Healthy), Diabetes Type 2 Diet Pending Studies Studies pending at discharge: no Physician Orders On Transfer Special Precautions: fall precautions . Vital Signs: routine . Weigh: daily . Additional Orders: Blood sugars AC + HS. NovoLog coverage for elevated blood sugars: BSG NovoLog SQ < 151 none 151-200 2 unit 201-250 4 units above 250 6 units Warfarin management per your institution's protocol. Follow-up with [facility] after discharge. Please check basic metabolic profile twice a week until stable, then as clinically indicated. Incentive spirometry QID. . POLST Discussion: Not Applicable Laboratory Results Hemoglobin A1c Test 10/07/16 05:15 Range/Units Estimated Average Glucose 318 mg/dl Hemoglobin A1c 12.7 H 4.5-5.6 % Medical Emergencies . Who to Call and When: Medical Emergencies: If at any time you feel your situation is an emergency, please call 911 immediately. . Non-Emergent Contact Non-Emergency issues call your: Primary Care Provider . . "Provider Documentation" section prepared by Abdelrahman Fernandez. Core Measure Problem Core Measures: None
--- NOTE | 2016-10-20 12:41 | Discharge Summary ---
Discharge Summary Admission Date: Oct 06, 2016 at 19:02 Discharge Date: Oct 20, 2016 Discharge Disposition: detention facility ([facility]) Principal Diagnosis: influenza A . Secondary Diagnoses/Problems: Other Acute Medical Problems: acute hypoxic respiratory failure possible pneumonia CHF / pulmonary edema (acute left ventricular diastolic heart failure) atrial fibrillation / flutter acute kidney injury poorly controlled DM type 2 Chronic and Resolved Medical Problems: (1) Breast cancer, history of Permanent Comment: Infiltrating ductal carcinoma the left breast, T1b N0M0 stage I Status: Chronic (2) Cataract Status: Chronic (3) CKD (chronic kidney disease), stage III Status: Chronic (4) DM type 2 (diabetes mellitus, type 2) Status: Chronic (5) Dyslipidemia Status: Chronic (6) History of bladder cancer Status: Chronic (7) History of melanoma Status: Chronic (8) Hypertension Status: Chronic (9) S/p excision of bladder tumor Status: Chronic Surgical Problems: (1) H/O cystoscopy Status: Chronic (2) H/O hernia repair Status: Chronic (3) H/O lymph node biopsy Status: Chronic (4) H/O partial mastectomy Status: Chronic (5) S/P lumbar laminectomy Status: Chronic (6) S/P BROOKLYNN-BSO Status: Chronic (7) Status post Mohs surgery Status: Chronic . Procedures: IV meds cardiac monitoring echo CT abdomen + pelvis CT chest venous duplex lower extremities PT OT . Consultations: Cardiology with Drs. Ramires and Jarrett . Medication Reconciliation New Medications: Calcium Carbonate-Vitamin D (Calcium 500 + D) 1 Tab Tab 1 TAB PO BID, #60 TAB Furosemide (Lasix) 40 Mg Tab 40 MG PO DAILY, #30 TAB New dose. May need new prescription at time of DC from [facility], depending on appropriate dose at that time. Insulin Aspart (Novolog Flexpen) 100 Units/Ml Inj 0 SQ ACHS, #10 ML Correction factor as instructed in transfer orders. Will probably not need Rx at time of DC from [facility]. Warfarin Sod (Coumadin) 2.5 Mg Tab 2.5 MG PO DAILY, #30 TAB New med. Start 10/21/16. Titrate INR 2-3. Will need new prescription at time of DC from [facility]. Acetaminophen (Tylenol) 325 Mg Tab 650 MG PO Q4H PRN for Pain or Fever, #30 TAB Amiodarone HCl (Amiodarone HCl) 200 Mg Tab 200 MG PO BID, #30 TAB New med. Will need new prescription at time of DC from [facility]. Docusate Sodium (Docusate Sodium) 100 Mg Cap 100 MG PO BID, #60 CAP Isosorbide Mononitrate (Isosorbide Mononitrate ER) 30 Mg Tabcr 30 MG PO QAM, #30 TAB New med. Will need new prescription at time of DC from [facility]. Metoprolol Succinate (Metoprolol Succinate ER) 25 Mg Tabcr 25 MG PO BID, #60 TAB New dose. Will need new prescription at time of DC from [facility]. Polyethylene (Miralax) 17 Gm Pow 17 GM PO DAILY PRN for Constipation, #30 Continued Medications: Amlodipine (Norvasc) 5 Mg Tab 5 MG PO DAILY, TAB Amoxicillin (Amoxil) 500 Mg Cap 500 MG PO UD for PRIOR TO DENTAL APPOINTMENTS, CAP Aspirin (Aspirin Ec) 81 Mg Tab 81 MG PO DAILY Atorvastatin (Lipitor) 40 Mg Tab 40 MG PO HS, TAB Glimepiride (Amaryl) 4 Mg Tab 4 MG PO DAILY, TAB Sitagliptin Phosphate (Januvia) 100 Mg Tab 100 MG PO DAILY Discontinued Medications: Azithromycin (Zithromax Z-Horacio) 250 Mg Tab 1 PKT PO UD for 5 Days, #1 PKT Take 2 tablets by mouth on first day, then 1 tablet daily until gone. Calcium W/ Vitamins D & K (Viactiv) 1 Chw Chw TAB PO DAILY Furosemide (Lasix) 20 Mg Tab 20 MG PO DAILY, TAB Losartan Potassium (Cozaar) 100 Mg Tab 100 MG PO HS, TAB Metoprolol Succ (Toprol Xl) (Toprol-Xl) 50 Mg Tabcr 100 MG PO DAILY [Monavie liquid] () 2 OZ PO DAILY Admission Information HPI (per Admitting provider): This is an 89 y/o female with PMH of DM type 2, HTN, HL, CKD stage III, history of breast CA, history of bladder CA, and other problems listed below who was sent to the ED from Dr. Dominguez's office for hyperglycemia. Pt's [id number] at bedside states 4 days ago she developed cold like symptoms with dry cough and temp of 100.5 treated with Tylenol. She had a few episodes of diarrhea over the weekend. Then yesterday she was having RLQ abdominal pain and nausea. Patient seen in urgent care yesterday and started on Azithromycin. Then today she was feeling generalized weakness, malaise, temp of 99.5, and was seen by Dr. Dominguez and BSG was high 400s in clinic so was sent to the ER. Outpatient labs today showed GERMAINE and hyponatremia. Patient states cough and abdominal pain are improving. Patient denies any weight loss, chills, ear ache, sore throat, headache, diffuse myalgias, chest pain, palpitations, shortness of breath, edema vomiting, dysuria, frequency, urgency. She does not check her blood sugar at home. Daughter in law notes patient was stressed past 1.5 weeks due to her son's health issues. No sick contact or recent hospitalization. No history of CAD. She had negative dobutamine stress echo in 2008. . Physical Exam (per Admitting): General Appearance: WD/WN, no apparent distress, + pertinent finding (alert elderly female, daughter in law at bedside) Head: normocephalic, atraumatic Eyes: normal inspection, PERRL, EOMI, sclerae normal ENT: normal ENT inspection, pharynx normal, + pertinent finding (hard of hearing. bilateral canals partially occluded by cerumen. 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 Completed course oseltamivir. ACUTE HYPOXIC RESPIRATORY FAILURE Developed acute hypoxic respiratory failure. Probably due to combination of influenza, possible pneumonia, pulmonary edema. Pulmonary status improved. Supplemental oxygen weaned and discontinued. O2 sats 94-96% day of discharge. POSSIBLE PNEUMONIA Imaging demonstrated possible infiltrate right base. Possible influenza associated pneumonia. Treated with doxycycline to complete 7 day course of therapy. ATRIAL FIB / FLUTTER Developed atrial fib / flutter with rapid ventricular response. Cardiology consulted. Now in normal sinus rhythm. Started on amiodarone. Continue metoprolol, amiodarone, warfarin. INR has been rising over past several days, 2.9 today. Skip warfarin 10/20/16. Start 2.5 mg daily 10/21. Follow and titrate to maintain INR 2-3. Stop any supplements containing vitamin K. Follow-up with [facility]. Reduce amiodarone to 200 mg BID until rechecked by Cardiology. Metoprolol succinate reduced to 25 mg BID. PULMONARY EDEMA Pulmonary edema noted on imaging. Echo showed normal left ventricular systolic function. Pulmonary edema probably secondary to combination of acute left ventricular diastolic failure, tachyarrhythmias, IV fluids. Chest x-ray 10/17 showed improvement. Persistent 2+ lower extremity edema and stable wts despite furosemide 20 mg daily. Increased furosemide to 40 mg daily. Follow exam, wts, BMP. ELEVATED TROPONIN Serum troponin 1.18, repeat 1.56. Echo showed normal LV wall motion and function. Suspected demand ischemia due to infectious process. HYPERTENSION Blood pressures well-controlled. Stopped losartan due to GERMAINE. Continue metoprolol, amlodipine, nitrates. ACUTE KIDNEY INJURY Baseline creatinine 0.96 06/16/16. Serum creatinine 1.7 on admission and emma as high as 1.9. Creatinine day of discharge = 1.9. Follow. DIABETES MELLITUS TYPE 2 - uncontrolled Managed with glimepiride and sitagliptin prior to discharge. Random blood sugar 450 day of admission. Hemoglobin A1c 12.7. Received Lantus/NovoLog per protocol. Fasting blood sugar day of discharge = 142 Tight control not indicated per current guidelines, but would like to see glycemic control somewhat better. Discharge on her usual outpatient regimen with NovoLog coverage AC + HS while at [facility]. Follow and titrate Rx. DYSLIPIDEMIA Continue atorvastatin. 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 CT 08/30/2006 that demonstrated similar lesion in tail of pancreas measuring 1.7cm in greatest diameter. CT 03/02/2007 that demonstrated similar lesion in tail of pancreas measuring 1.5 cm in greatest diameter. Lesion appears to be stable x 10 years, so no need for further evaluation or consultation. VTE PROPHYLAXIS Continue warfarin for AF. DISPOSITION Needs skilled care. Case Management consulted. Referral made to [facility]. Internal Medicine follow-up with Dr. Dominguez. Cardiology follow-up with Dr. Farias. Warfarin management per [facility]. Components of this document were electronically copied and updated from the last documentation created by the undersigned in order to maintain a complete, accurate, and current record. Any portion of this document created by another author, if any, will be attributed to them. I certify that the record accurately reflects the patient's current status and services provided on the date of service. . Total time spent on discharge = This includes examination of the patient, discharge planning, medication reconciliation, and communication with other providers. [place] [address] Discharge Transfer Non-Acute Patient Name: Santa Ortega Unit Number: [id number] Date of : 1925 Patient Status: Admitted Inpatient Attending Doctor: Abdelrahman Fernandez M.D. DI: Transfer Non Acute v4 Discharge Instructions Admission Reason for Admission: influenza A, acute kidney injury, DM type 2 poorly controlled Discharge Discharge Diagnosis / Problem: influenza A, acute kidney injury, DM type 2 poorly controlled, AF Discharge Goals Goal(s): Decrease discomfort, Improve function, Increase independence, Improve disease control Activity Recommendations Activity Level: Assistance Required Therapies: Physical Therapy, Occupational Therapy . Additional Information Patient informed of condition: Yes Advance Directives: Yes DNR: No Level of Care: Skilled Communicable Disease: No Prognosis: Improving Gray Catheter: No Instructions / Follow-Up Instructions / Follow-Up FOLLOW-UP APPOINTMENTS: INTERNAL MEDICINE Dr. Dominguez 1 week after DC from [facility] CARDIOLOGY Dr. Farias or one of his colleagues. 2-3 wks- around 11/01/16. Thank you for receiving this patient in transfer. Please call if you have any questions. Abdelrahman Fernandez . Current Hospital Diet Patient's current hospital diet: AHA Diet (Heart Healthy), Diabetes Type 2 Diet Discharge Diet Recommended Diet: AHA Diet (Heart Healthy), Diabetes Type 2 Diet Pending Studies Studies pending at discharge: no Physician Orders On Transfer Special Precautions: fall precautions . Vital Signs: routine . Weigh: daily . Additional Orders: Blood sugars AC + HS. NovoLog coverage for elevated blood sugars: BSG NovoLog SQ < 151 none 151-200 2 unit 201-250 4 units above 250 6 units Warfarin management per your institution's protocol. Follow-up with [facility] after discharge. Please check basic metabolic profile twice a week until stable, then as clinically indicated. Incentive spirometry QID. . POLST Discussion: Not Applicable Laboratory Results Hemoglobin A1c Test 10/07/16 05:15 Range/Units Estimated Average Glucose 318 mg/dl Hemoglobin A1c 12.7 H 4.5-5.6 % Medical Emergencies . Who to Call and When: Medical Emergencies: If at any time you feel your situation is an emergency, please call 911 immediately. . Non-Emergent Contact Non-Emergency issues call your: Primary Care Provider . . "Provider Documentation" section prepared by Abdelrahman Fernandez. Core Measure Problem Core Measures: None Additional Copies To Daniella Luevano D.O.; Scott Farias M.D.; Adam Dominguez D.O.
[2016-10-20 13:27] VITALS: BP 125/62; PULSE 68; TEMP 36.7; O2SAT 96
[2017-01-25] MEDS ORDERED: APR25 PO (14:14)
[2017-03-03] MEDS ORDERED: INSDGIPEN SC (17:33)
[2017-03-03] MEDS ORDERED: APR25 PO (17:33)
[2017-06-28] MEDS ORDERED: APR50 PO (14:32)
[2017-06-28] MEDS ORDERED: INSDGIPEN SC (14:32)
[2017-06-28] MEDS ORDERED: TPRSR25 PO (14:32)
== END 2016-10-20 14:40 | DRG 193 ==
LOC: ENRESERVTM → ENRESERVDT → C.EDB 16:17 → UNDOADMIN 19:02 → C.2T 19:02 → C.2E 10-07 00:22 → C.2T 10-07 00:22 → C.MED 10-18 15:38
PROVIDERS: ADMIT Internal Medicine; ATTEND Hospitalist
DX: J11.00 Influenza due to unidentified influenza virus with unspecified type of pneumonia (principal); N17.9 Acute kidney failure, unspecified; I50.31 Acute diastolic (congestive) heart failure; I24.8 Other forms of acute ischemic heart disease; I48.92 Unspecified atrial flutter; E87.1 Hypo-osmolality and hyponatremia; J96.01 Acute respiratory failure with hypoxia; J44.0 Chronic obstructive pulmonary disease with (acute) lower respiratory infection; E86.0 Dehydration; I12.9 Hypertensive chronic kidney disease with stage 1 through stage 4 chronic kidney disease, or unspecified chronic kidney disease; E11.21 Type 2 diabetes mellitus with diabetic nephropathy; J18.9 Pneumonia, unspecified organism; N18.3 Chronic kidney disease, stage 3 (moderate); E78.5 Hyperlipidemia, unspecified; Z85.3 Personal history of malignant neoplasm of breast; Z85.51 Personal history of malignant neoplasm of bladder; Z85.820 Personal history of malignant melanoma of skin; E87.6 Hypokalemia; K57.30 Diverticulosis of large intestine without perforation or abscess without bleeding; I44.0 Atrioventricular block, first degree; E11.649 Type 2 diabetes mellitus with hypoglycemia without coma; B34.9 Viral infection, unspecified; I48.91 Unspecified atrial fibrillation; E83.42 Hypomagnesemia; E11.65 Type 2 diabetes mellitus with hyperglycemia; Q67.6 Pectus excavatum

== ENCOUNTER 2016-12-09 17:51 | Emergency (ER) | payer OTHER, BC ==
[~2016-12-09] VITALS: Ht 165.1 cm; Wt 61.4 kg
[~2016-12-09 17:51] MED LIST changes: +AMOX500C3 PO; -ASPEC81 PO; +ASPI81TA28 PO; +ATOR-24 PO; +CALCTAB65 PO; +CLC100 PO; +CMD/25 PO; +CRD200 PO; -CRS20 PO; -CZR50 PO; +GLIM4TAB PO; -GLIM4TAB2 PO; +IMDSR30 PO; -METO50TA7 PO; +MRLP17X PO; -MULTCHW4 PO; +NVLGIPEN SQ; +TPRSR25 PO; +TYL325X PO; -[UNRECOGNIZED DRUG - OTHER] PO
[2016-12-09 17:58] VITALS: TEMP 36.9; Ht 165.1 cm; Wt 61.4 kg
[2016-12-09] MEDS ORDERED: WARF3TAB6 PO (18:20)
[2016-12-09] MEDS ORDERED: WARF5TAB7 PO (18:20)
[2016-12-09] MEDS ORDERED: INSDGI SC (18:20)
[2016-12-09] MEDS ORDERED: SITA25TA PO (18:22)
[2016-12-09] MEDS ORDERED: AMIO200T4 PO (18:22)
[2016-12-09] MEDS ORDERED: METO25TA3 PO (18:22)
[2016-12-09] MEDS ORDERED: ISOS30TA35 PO (18:22)
--- NOTE | 2016-12-09 19:01 | DIAGNOSTIC IMAGING REPORT ---
RIGHT KNEE 3 VIEWS HISTORY: Right knee pain. COMPARISON: None. FINDINGS: There is diffuse soft tissue edema within the patient's right leg. Mild to moderate osteoarthritis within the right knee. Subchondral lucency within the medial femoral condyle favors an old osteochondral lesion. Chondrocalcinosis. Small to moderate knee effusion. No acute fractures. No radiopaque foreign bodies. IMPRESSION: 1. No acute fractures within the right knee. 2. Small to moderate knee effusion. 3. Mild to moderate osteoarthritis. 4. Chondrocalcinosis. 5. Diffuse soft tissue edema within the visualized right leg. 6. Osteochondral lesion within the medial femoral condyle. This is likely old. Electronically signed by: Reji Linn M.D. 12/09/2016 6:59 PM Dictated Date/Time: 12/09/2016 6:55 PM
[2016-12-09 19:58] VITALS: BP 169/83; PULSE 60; O2SAT 91
[2016-12-09 20:11] LABS: INR 2.9 (0.9-1.1); PROTHROMBIN TIME (PATIENT) 32.4 SECONDS (9.0-12.0)
--- NOTE | 2016-12-10 01:11 | EMERGENCY ROOM VISIT NOTE ---
ED Visit Note First contact with patient: 18:32 I have personally evaluated this patient examined her and reviewed the pertinent labs and data. I have discussed the case with Abdelrahman Friend, the physician biology laboratory assistant and agree with the plan. Please refer to the PA note This patient comes in with right knee pain. She's had no fall or trauma .she is neurologically and neurovascularly intact .she does have some mild swelling. I do think this is likely an effusion. She is on Coumadin her INR is therapeutic. There is nothing to suggest infection. It may be that she has a hemarthrosis from some mild trauma. Use immobilizer and pain management follow- up with orthopedist. She should return if: increasing pain, worsening of symptoms, any problems concerns and be careful getting up and down.
--- NOTE | 2016-12-10 19:39 | EMERGENCY ROOM VISIT NOTE ---
ED Visit Note First contact with patient: 18:06 Chief Complaint: Right knee pain and swelling. History of Present Illness: Ms. Ortega is an 89-year-old white female who is brought into the ED wheelchair accompanied by her daughter complaining right knee pain and swelling. Historically patient denies any previous significant injuries or surgeries to her right knee. Patient reports last evening she was walking into her back. She reports that she was turning her to sit on the bed her feet became tangled and she sat down quickly. She reports during this episode she twisted her knee. She did not fall down onto the knee. She reports that this happened there is mild pain in the knee but nothing severe. Has today progressed she noted increasing swelling and pain with ambulation. Currently she describes her pain as an achy sensation at rest and rates her discomfort 3/10. With ambulation the pain becomes sharp and rates her discomfort 7/10. She reports primarily the pain is located over the posterior aspect of the knee but doing my examination she does report mild tenderness over the lateral joint line. As previously noted pain worsens with ambulation and weightbearing and relieved minimally with rest. She has not had any medications for pain prior to arrival at the hospital. She denies any associated symptoms including hip pain, thigh pain, lower leg pain, ankle pain, finger pain, leg weakness/numbness/tingling. Review of Systems: As noted above in history of present illness. Past Medical History: (1) GERMAINE (acute kidney injury) (2) Breast cancer (3) Cataract (4) CKD (chronic kidney disease), stage III (5) DM type 2 (diabetes mellitus, type 2) (6) Dyslipidemia (7) History of bladder cancer (8) History of melanoma (9) Hyperglycemia (10) Hypertension (11) S/p excision of bladder tumor Surgical Problems: (1) H/O cystoscopy (2) H/O hernia repair (3) H/O lymph node biopsy (4) H/O partial mastectomy (5) S/P lumbar laminectomy (6) S/P BROOKLYNN-BSO (7) Status post Mohs surgery Current Medications: Lescol injury Medications Dose Route/Sig Max Daily Dose Days Date Category Dose Instructions Januvia (Sitagliptin) 25 Mg Tab 25 Mg PO QAM 12/09/16 Reported Toprol-Xl (Metoprolol Succinate) 25 Mg Tabcr 25 Mg PO BID 12/09/16 Reported Imdur Ext Rel (Isosorbide Mononitrate) 30 Mg Tabcr 30 Mg PO QAM 12/09/16 Reported Cordarone (Amiodarone Hcl) 200 Mg Tab 200 Mg PO BID 12/09/16 Reported Lantus (Insulin Glargine) 100 Unit/Ml Inj 15 Units SC QPM 12/09/16 Reported Jantoven (Warfarin Sodium) 3 Mg Tab 3 Mg PO 2XWK 12/09/16 Reported WEDNESDAY AND WEDNESDAY Jantoven (Warfarin Sodium) 5 Mg Tab 5 Mg PO 5XWK 12/09/16 Reported Miralax (Polyethylene) 17 Gm Pow 17 Gm PO DAILY PRN 10/20/16 Rx Tylenol (Acetaminophen) 325 Mg Tab 650 Mg PO Q4H PRN 10/20/16 Rx Aspirin Ec (Aspirin) 81 Mg Tab 81 Mg PO DAILY 10/06/16 Reported Amaryl (Glimepiride) 4 Mg Tab 4 Mg PO DAILY 10/06/16 Reported Lipitor (Atorvastatin Calcium) 40 Mg Tab 40 Mg PO HS 10/06/16 Reported Norvasc (Amlodipine Besylate) 5 Mg Tab 5 Mg PO DAILY 10/06/16 Reported Januvia (Sitagliptin Phosphate) 100 Mg Tab 100 Mg PO DAILY 01/16/09 Reported Allergies to Medications: Metformin, pioglitazone. Social History: Patient is not employed; she lives with 2 sons and feels safe in her home environment; she denies tobacco and alcohol use. Physical Examination: Vital Signs: Date Time Temp Pulse Resp B/P Pulse Ox O2 Delivery O2 Flow Rate FiO2 12/09/16 19:58 60 18 169/83 91 Room Air 12/09/16 17:58 36.9 60 18 157/68 96 Room Air GENERAL: 89-year-old female in mild distress due to pain, nontoxic-appearing, afebrile and hemodynamically stable. NEUROLOGICAL: Awake, alert and oriented to person, place and time. Answering questions appropriately and following commands. SKIN: Warm, dry and pink. No soft tissue trauma noted. RIGHT LOWER EXTREMITY: No gross bony deformity. No shortening or Route rotation. No tenderness over the hip, thigh, lower leg, ankle or foot. Moderate tenderness over the posterior knee primarily over the popliteal space but not the tendinous attachment of the hamstrings. There is also mild tenderness over the lateral joint line. Negative ballottement test. There is moderate swelling to the soft tissues over the anterior knee but no ecchymosis or erythema. No laxity of the collateral or cruciate ligaments. Range of motion is restricted to approximately 30 of flexion. Because of her swelling and limited range of motion I deferred meniscus testing. Patient had full range of motion in plantar flexion and dorsiflexion of the ankles and flexion and extension of the toes. Distal pulses and sensations were intact. ED Course: Patient is assessed as noted above. Patient was given ice for pain and swelling; she was offered pain medication and refused. Right Knee X-Rays: Were read by myself and the radiologist showing no acute fractures or dislocations. Small to moderate joint effusion, mild to moderate osteoarthritis, chondrocalcinosis, diffuse soft tissue edema, osteochondral lesion within the medial femoral condyle likely old. Laboratory Testing: Test 12/09/16 19:53 Range/Units Prothrombin Time 32.4 9.0-12.0 SECONDS Prothromb Time International Ratio 2.9 0.9-1.1 Patient was reassessed multiple times during her stay in the ED. Patient's case was reviewed with Dr. Robertson; we agreed on diagnostic, treatment , disposition and plan. Patient was placed in a knee immobilizer and was educated on [employer] use; she was able to tolerate weightbearing with the use of a walker and splint. Patient and daughter were educated about tonight's findings and instructed on her treatment plan; they verbalized understanding and agreement with this plan. Clinical Impression: Right knee pain and swelling. Disposition: Patient discharged home in stable condition accompanied by her daughter; prior to departure she was reassessed and subjectively reported she was feeling better and rated her discomfort 2/10. Plan: Comfort measures were discussed the use of ibuprofen,, ice, elevation, immobilizer and walker use; because she was on Coumadin she was encouraged to avoid NSAIDs.. Was encouraged the patient follow up with her primary care provider for recheck in 3-4 days possible referral to orthopedics. Was encouraged that the patient return ED for worsening pain, worsening swelling , leg weakness/numbness/tingling or any new/concerning symptoms.
[2017-01-25] MEDS ORDERED: APR25 PO (14:14)
[2017-03-03] MEDS ORDERED: INSDGIPEN SC (17:33)
[2017-03-03] MEDS ORDERED: APR25 PO (17:33)
[2017-06-28] MEDS ORDERED: INSDGIPEN SC (14:32)
[2017-06-28] MEDS ORDERED: APR50 PO (14:32)
[2017-06-28] MEDS ORDERED: TPRSR25 PO (14:32)
== END 2016-12-09 20:25 | disposition home or self-care (01) ==
LOC: C.EDB 17:52 → C.EDD 20:25
DX: M25.561 Pain in right knee (principal); R22.41 Localized swelling, mass and lump, right lower limb; I12.9 Hypertensive chronic kidney disease with stage 1 through stage 4 chronic kidney disease, or unspecified chronic kidney disease; N18.3 Chronic kidney disease, stage 3 (moderate); E78.5 Hyperlipidemia, unspecified; E11.9 Type 2 diabetes mellitus without complications; Z85.51 Personal history of malignant neoplasm of bladder; Z85.3 Personal history of malignant neoplasm of breast; Z85.820 Personal history of malignant melanoma of skin; Z90.10 Acquired absence of unspecified breast and nipple; Z98.890 Other specified postprocedural states; Z79.01 Long term (current) use of anticoagulants; Z79.4 Long term (current) use of insulin; Z79.899 Other long term (current) drug therapy; Z88.8 Allergy status to other drugs, medicaments and biological substances

== ENCOUNTER 2017-01-19 13:12 | Inpatient (IN) | payer OTHER, BC ==
[~2017-01-19] VITALS: Ht 165.1 cm; Wt 66.5 kg
[~2017-01-19 13:12] MED LIST changes: +AMIO200T4 PO; -AMOX500C3 PO; -CALCTAB65 PO; -CLC100 PO; -CMD/25 PO; -CRD200 PO; -IMDSR30 PO; +INSDGI SC; +ISOS30TA35 PO; +METO25TA3 PO; -NVLGIPEN SQ; +SITA25TA PO; -TPRSR25 PO; +WARF3TAB6 PO; +WARF5TAB7 PO
[2017-01-19] MEDS ORDERED: FUROSEMIDE 40 MG/4 ML VIAL IV STA (13:46)
[2017-01-19] MEDS ORDERED: INSU1INJ33 SC (14:00)
[2017-01-19] MEDS ORDERED: TCMD2 PO (14:00)
[2017-01-19] MEDS ORDERED: CMD4 PO (14:00)
--- NOTE | 2017-01-19 14:01 | EMERGENCY ROOM VISIT NOTE ---
History First contact with patient: 13:23 Chief Complaint: SHORTNESS OF BREATH Stated Complaint: SOB Nursing Triage Summary: Pt c/o shortness of breath when she is going up steps or when she putting shoes and socks on. Began approx 3 days ago. Also c/o "hacking cough for a few days" Non productive. History of Present Illness The patient is a 89 year old female non-smoker with Hx of Paroxysmal Atrial Fibrillation on Amiodarone, Coumadin who presents to the Emergency Room with complaints of 1 day hx worsening SOB on exertion. Patient reports SOB presented particularly when going up stairs or putting on her socks and shoes. She denies Chest pain, palpitation, Orthopnea, Paroxysmal Nocturnal Dyspnea. She does report chronic LE Edema since 2015. Patient also reports non- productive cough for 3-4 days. She is a patient of Dr. Shay, Leadership Development Manager. Echo in 2015 showed normal LV systolic Function, EF 60-65% Review of Systems See HPI for pertinent positives & negatives. A total of 10 systems reviewed and were otherwise negative. Past Medical/Surgical History Medical Problems: (1) GERMAINE (acute kidney injury) (2) Breast cancer (3) Cataract (4) CKD (chronic kidney disease), stage III (5) DM type 2 (diabetes mellitus, type 2) (6) Dyslipidemia (7) History of bladder cancer (8) History of melanoma (9) Hyperglycemia (10) Hypertension (11) S/p excision of bladder tumor Surgical Problems: (1) H/O cystoscopy (2) H/O hernia repair (3) H/O lymph node biopsy (4) H/O partial mastectomy (5) S/P lumbar laminectomy (6) S/P BROOKLYNN-BSO (7) Status post Mohs surgery Family History Cardiac disorder FATHER MOTHER Social History Smoking Status: Never Smoker Alcohol Use: none Marital Status: Housing Status: lives alone Occupation Status: retired Current/Historical Medications Scheduled Amiodarone Hcl (Cordarone), 200 MG PO BID Amlodipine (Norvasc), 5 MG PO HS Aspirin (Aspirin Ec), 81 MG PO DAILY Atorvastatin (Lipitor), 40 MG PO HS Furosemide (Furosemide), 40 MG PO DAILY Glimepiride (Amaryl), 4 MG PO DAILY Insulin Degludec (Tresiba Flextouch), 20 UNITS SC HS Isosorbide Mononitrate Ext Rel (Imdur Ext Rel), 30 MG PO QAM Metoprolol Succ (Toprol Xl) (Toprol-Xl), 25 MG PO BID Sitagliptin (Januvia), 25 MG PO QAM Warfarin Sod (Coumadin), 1 TAB PO 5XWK Warfarin Sod (Coumadin), 1 TAB PO 2XWK Scheduled PRN Acetaminophen (Tylenol), 650 MG PO Q4H PRN for Pain or Fever Polyethylene (Miralax), 17 GM PO DAILY PRN for Constipation Miscellaneous Medications [vitamin liquid], Unknown Dose Allergies Coded Allergies: Anastrozole (Verified Allergy, Severe, ANAPHYLAXIS, 01/19/17) edema face/tongue/lips Pioglitazone (Unverified Allergy, Intermediate, HIVES, 01/19/17) Metformin (Verified Adverse Reaction, Intermediate, DIARRHEA, 01/19/17) Physical Exam Vital Signs Date Time Temp Pulse Resp B/P Pulse Ox O2 Delivery O2 Flow Rate FiO2 01/19/17 16:20 79 Room Air 01/19/17 16:20 95 Nasal Cannula 3.0 01/19/17 15:39 55 20 156/64 96 Nasal Cannula 2.0 01/19/17 14:11 55 20 169/68 94 Nasal Cannula 2.0 01/19/17 14:09 58 01/19/17 13:49 93 Nasal Cannula 2.0 01/19/17 13:49 93 Nasal Cannula 2.0 01/19/17 13:15 36.8 54 18 159/56 88 Room Air 01/19/17 13:15 88 Room Air Physical Exam GENERAL: alert, anxious , no distress, on Oxygen 2L NC, non-toxic EYE EXAM: normal conjunctiva, PERRL and EOM's grossly intact OROPHARYNX: no exudate, no erythema, lips, buccal mucosa, and tongue normal and mucous membranes are moist NECK: supple, no nuchal rigidity, no adenopathy, non-tender LUNGS: mel basilar crackles, Normal chest wall mechanics HEART: no murmurs, S1 normal and S2 normal ABDOMEN: abdomen soft, non-tender, normo-active bowel sounds, no masses, no rebound or guarding. SKIN: no rashes and no bruising UPPER EXTREMITIES: upper extremities are grossly normal. LOWER EXTREMITIES: 2+ peripheral edema mel NEURO EXAM: Normal sensorium, cranial nerves II-XII grossly intact, normal speech, no gross weakness of arms, no gross weakness of legs. Medical Decision & Procedures ER Provider Diagnostic Interpretation: CHEST ONE VIEW PORTABLE CLINICAL HISTORY: Cough. Shortness of breath. COMPARISON STUDY: Chest radiograph October 17, 2016. FINDINGS: There is no pneumothorax. Small bilateral pleural effusions persist. There are bibasilar opacities with left lower lobe volume loss. Right basilar opacity is increased since prior exam. Pulmonary edema has increased since prior exam. IMPRESSION: 1. Interstitial thickening consistent with mild pulmonary edema. 2. Small bilateral pleural effusions with associated bibasilar opacities which statistically reflect atelectasis although consolidation could appear similar. Laboratory Results 01/19/17 14:15 Red Blood Count 3.32, Mean Corpuscular Volume 92.5, Mean Corpuscular Hemoglobin 31.6, Mean Corpuscular Hemoglobin Concent 34.2, Mean Platelet Volume 9.8, Neutrophils (%) (Auto) 81.9, Lymphocytes (%) (Auto) 5.8, Monocytes (%) (Auto) 9.4, Eosinophils (%) (Auto) 2.7, Basophils (%) (Auto) 0.1, Neutrophils # (Auto) 7.98, Lymphocytes # (Auto) 0.57, Monocytes # (Auto) 0.92, Eosinophils # (Auto) 0.26, Basophils # (Auto) 0.01 01/19/17 14:15 Test 01/19/17 14:15 White Blood Count 9.75 K/uL (4.8-10.8) Red Blood Count 3.32 M/uL (4.2-5.4) Hemoglobin 10.5 g/dL (12.0-16.0) Hematocrit 30.7 % (37-47) Mean Corpuscular Volume 92.5 fL (80-100) Mean Corpuscular Hemoglobin 31.6 pg (25-34) Mean Corpuscular Hemoglobin Concent 34.2 g/dl (32-36) Platelet Count 219 K/uL (130-400) Mean Platelet Volume 9.8 fL (7.4-10.4) Neutrophils (%) (Auto) 81.9 % Lymphocytes (%) (Auto) 5.8 % Monocytes (%) (Auto) 9.4 % Eosinophils (%) (Auto) 2.7 % Basophils (%) (Auto) 0.1 % Neutrophils # (Auto) 7.98 K/uL (1.4-6.5) Lymphocytes # (Auto) 0.57 K/uL (1.2-3.4) Monocytes # (Auto) 0.92 K/uL (0.11-0.59) Eosinophils # (Auto) 0.26 K/uL (0-0.5) Basophils # (Auto) 0.01 K/uL (0-0.2) RDW Standard Deviation 44.9 fL (36.4-46.3) RDW Coefficient of Variation 13.4 % (11.5-14.5) Immature Granulocyte % (Auto) 0.1 % Immature Granulocyte # (Auto) 0.01 K/uL (0.00-0.02) Prothrombin Time 24.7 SECONDS (9.0-12.0) Prothromb Time International Ratio 2.2 (0.9-1.1) Anion Gap 7.0 mmol/L (3-11) Estimated GFR () 23.6 Estimated GFR (Non- 20.4 BUN/Creatinine Ratio 19.4 (10-20) Calcium Level 8.9 mg/dl (8.5-10.1) Total Creatine Kinase 103 U/L (26-192) Creatine Kinase MB 2.8 ng/ml (0.5-3.6) Creatine Kinase MB Ratio 2.7 (0-3.0) Troponin I < 0.015 ng/ml (0-0.045) Pro-B-Type Natriuretic Peptide 2703 pg/ml (0-1800) Beta-Hydroxybutyric Acid 0.92 mg/dL (0.2-2.81) Medications Administered Medications (Trade) Dose Ordered Sig/Mustapha Route Start Time Stop Time Status Last Admin Dose Admin Furosemide (Lasix Inj) 40 mg NOW STAT IV 01/19/17 13:46 01/19/17 13:51 DC 01/19/17 14:28 40 MG Albuterol Sulfate (Ventolin 0.5% 2.5MG/0.5ML Neb) 2.5 mg NOW STAT INH 01/19/17 14:31 01/19/17 14:33 DC 01/19/17 14:52 2.5 MG Medical Decision Differential diagnoses includes but is not limited to pneumonia, bronchitis, COPD/Asthma exacerbation, pneumothorax, pulmonary embolism, congestive heart failure, acute coronary syndrome 89 yo F w/ hx of Afib, HTN, HLD, DM, BR cancer s/p lumpectomies, p/w worsening SOB on exertion, hypoxic on arrival with saturation of 88% requiring Oxygen 2 L NC. Patient does not use Oxygen at home. -EKG: Sinus Bradycardia HR 54, RBBB, L Ant. Fascicular Block -CBC: Normal WBC Ct, H/H: 10.5/30.7 (Baseline: 9.8 -13) -BMP: electrolytes wnl, BUN 41, Cr 2.1 (Baseline 1.4-1.9) -BNP: 2703, Echo in 2015 showed normal LV systolic Function, EF 60-65% -PT/INR: 24.7/2.2 -CXR: Small bilateral pleural effusions with associated bibasilar opacities. atelectasis vs. Pneumonia Dyspnea on Exertion/Acute Hypoxic Resp. Failure -likely secondary to CHF vs Cardiomyopathy, based on Elevated BNP, pleural effusion, Pulm. edema LE Edema. Pneumonia was considered based on CXR bibasilar opacities, however pt not afebrile, no leukocytosis, so less likely therefor antibiotics were not administered. ACS unlikely based on EKG findings and negative troponin. -Patient was given 1 hr duoneb treatment and 40 mg Furosemide -Patient remained on Oxygen NC 2L to maintain saturation IN ED. -Discussed case with David Dong [facility]) who agreed to evaluate patient for inpatient service. Impression Primary Impression: Acute respiratory failure with hypoxia Additional Impression: Dyspnea on exertion Departure Information Dispostion Admitted as an inpatient Referrals Adam Dominguez D.O. (PCP) Patient Instructions [facility] Resident Tracking Resident Involvement: Resident Care Provided Care Provided: Adult ED Problem Qualifiers
--- NOTE | 2017-01-19 14:15 | EMERGENCY ROOM VISIT NOTE ---
History Report prepared by Elijah: Sunita Crabtree Under the Supervision of: Dr. Carlos Palmer M.D. First contact with patient: 13:23 Chief Complaint: SHORTNESS OF BREATH Stated Complaint: SOB Nursing Triage Summary: Pt c/o shortness of breath when she is going up steps or when she putting shoes and socks on. Began approx 3 days ago. Also c/o "hacking cough for a few days" Non productive. History of Present Illness The patient is an 89 year old female who presents to the Emergency Room with complaints of worsening shortness of breath over the last day. The patient states that she has a history of atrial fibrillation, diabetes, and breast cancer. She states that over the past few days she has noticed a dry cough. The patient states that she has noticed increasing shortness of breath with exertion. She states that she has increased lower extremity edema since September. The patient states that she takes 40 mg of Lasix daily. She denies wearing oxygen at home. The patient denies any chest pain, palpitations, or loss of consciousness. The patient states that in September she was evaluated in the hospital with the flu and pneumonia. Source of History: patient Onset: one day Position: other (global) Quality: other (shortness of breath) Timing: worsening Modifying Factors (Worsening): exertion Associated Symptoms: + cough, No LOC, No chest pain Note: Associated Symptoms: increased lower extremity edema Review of Systems See HPI for pertinent positives & negatives. A total of 10 systems reviewed and were otherwise negative. Past Medical & Surgical Medical Problems: (1) GERMAINE (acute kidney injury) (2) Breast cancer (3) Cataract (4) CKD (chronic kidney disease), stage III (5) DM type 2 (diabetes mellitus, type 2) (6) Dyslipidemia (7) History of bladder cancer (8) History of melanoma (9) Hyperglycemia (10) Hypertension (11) S/p excision of bladder tumor Surgical Problems: (1) H/O cystoscopy (2) H/O hernia repair (3) H/O lymph node biopsy (4) H/O partial mastectomy (5) S/P lumbar laminectomy (6) S/P BROOKLYNN-BSO (7) Status post Mohs surgery Family History Cardiac disorder FATHER MOTHER Social History Smoking Status: Never Smoker Alcohol Use: none Marital Status: Housing Status: lives alone Occupation Status: retired Current/Historical Medications Scheduled Amiodarone Hcl (Cordarone), 200 MG PO BID Amlodipine (Norvasc), 5 MG PO DAILY Aspirin (Aspirin Ec), 81 MG PO DAILY Atorvastatin (Lipitor), 40 MG PO HS Glimepiride (Amaryl), 4 MG PO DAILY Insulin Degludec (Tresiba Flextouch), 20 UNITS SC HS Isosorbide Mononitrate Ext Rel (Imdur Ext Rel), 30 MG PO QAM Metoprolol Succ (Toprol Xl) (Toprol-Xl), 25 MG PO BID Sitagliptin (Januvia), 25 MG PO QAM Warfarin Sod (Coumadin), 1 TAB PO 5XWK Warfarin Sod (Coumadin), 1 TAB PO 2XWK Scheduled PRN Acetaminophen (Tylenol), 650 MG PO Q4H PRN for Pain or Fever Polyethylene (Miralax), 17 GM PO DAILY PRN for Constipation Allergies Coded Allergies: Pioglitazone (Unverified Allergy, Intermediate, HIVES, 01/19/17) Metformin (Verified Adverse Reaction, Intermediate, DIARRHEA, 01/19/17) Physical Exam Vital Signs Date Time Temp Pulse Resp B/P Pulse Ox O2 Delivery O2 Flow Rate FiO2 01/19/17 16:20 79 Room Air 01/19/17 16:20 95 Nasal Cannula 3.0 01/19/17 15:39 55 20 156/64 96 Nasal Cannula 2.0 01/19/17 14:11 55 20 169/68 94 Nasal Cannula 2.0 01/19/17 14:09 58 01/19/17 13:49 93 Nasal Cannula 2.0 01/19/17 13:49 93 Nasal Cannula 2.0 01/19/17 13:15 36.8 54 18 159/56 88 Room Air 01/19/17 13:15 88 Room Air Physical Exam GENERAL: Patient is a healthy-appearing well-nourished HEAD: Normocephalic atraumatic EYES: Ocular movements intact pupils equal and react to light OROPHARYNX mucous membranes are moist no exudates present no erythema or edema present NECK: Supple no nuchal rigidity CHEST: Good equal expansion LUNGS: Rales at the bases. CARDIAC: Normal S1 and S2 ABDOMEN: Soft nontender no guarding BACK: No CVA tenderness EXTREMITIES: No pain upon palpation normal muscle strength in all groups no clubbing cyanosis or edema NEURO: Patient is following commands is answering questions appropriately. Alert and oriented x3 Cranial Nerves 2-12 grossly intact Medical Decision & Procedures ER Provider Diagnostic Interpretation: X-ray results as stated below per interpretation by me and the radiologist: CHEST ONE VIEW PORTABLE CLINICAL HISTORY: Cough. Shortness of breath. COMPARISON STUDY: Chest radiograph October 17, 2016. FINDINGS: There is no pneumothorax. Small bilateral pleural effusions persist. There are bibasilar opacities with left lower lobe volume loss. Right basilar opacity is increased since prior exam. Pulmonary edema has increased since prior exam. IMPRESSION: 1. Interstitial thickening consistent with mild pulmonary edema. 2. Small bilateral pleural effusions with associated bibasilar opacities which statistically reflect atelectasis although consolidation could appear similar. Electronically signed by: Mark Olmos M.D. 01/19/2017 2:15 PM Dictated Date/Time: 01/19/2017 2:13 PM Laboratory Results 01/19/17 14:15 Red Blood Count 3.32, Mean Corpuscular Volume 92.5, Mean Corpuscular Hemoglobin 31.6, Mean Corpuscular Hemoglobin Concent 34.2, Mean Platelet Volume 9.8, Neutrophils (%) (Auto) 81.9, Lymphocytes (%) (Auto) 5.8, Monocytes (%) (Auto) 9.4, Eosinophils (%) (Auto) 2.7, Basophils (%) (Auto) 0.1, Neutrophils # (Auto) 7.98, Lymphocytes # (Auto) 0.57, Monocytes # (Auto) 0.92, Eosinophils # (Auto) 0.26, Basophils # (Auto) 0.01 01/19/17 14:15 Test 01/19/17 14:15 White Blood Count 9.75 K/uL (4.8-10.8) Red Blood Count 3.32 M/uL (4.2-5.4) Hemoglobin 10.5 g/dL (12.0-16.0) Hematocrit 30.7 % (37-47) Mean Corpuscular Volume 92.5 fL (80-100) Mean Corpuscular Hemoglobin 31.6 pg (25-34) Mean Corpuscular Hemoglobin Concent 34.2 g/dl (32-36) Platelet Count 219 K/uL (130-400) Mean Platelet Volume 9.8 fL (7.4-10.4) Neutrophils (%) (Auto) 81.9 % Lymphocytes (%) (Auto) 5.8 % Monocytes (%) (Auto) 9.4 % Eosinophils (%) (Auto) 2.7 % Basophils (%) (Auto) 0.1 % Neutrophils # (Auto) 7.98 K/uL (1.4-6.5) Lymphocytes # (Auto) 0.57 K/uL (1.2-3.4) Monocytes # (Auto) 0.92 K/uL (0.11-0.59) Eosinophils # (Auto) 0.26 K/uL (0-0.5) Basophils # (Auto) 0.01 K/uL (0-0.2) RDW Standard Deviation 44.9 fL (36.4-46.3) RDW Coefficient of Variation 13.4 % (11.5-14.5) Immature Granulocyte % (Auto) 0.1 % Immature Granulocyte # (Auto) 0.01 K/uL (0.00-0.02) Prothrombin Time 24.7 SECONDS (9.0-12.0) Prothromb Time International Ratio 2.2 (0.9-1.1) Anion Gap 7.0 mmol/L (3-11) Estimated GFR () 23.6 Estimated GFR (Non- 20.4 BUN/Creatinine Ratio 19.4 (10-20) Calcium Level 8.9 mg/dl (8.5-10.1) Total Creatine Kinase 103 U/L (26-192) Creatine Kinase MB 2.8 ng/ml (0.5-3.6) Creatine Kinase MB Ratio 2.7 (0-3.0) Troponin I < 0.015 ng/ml (0-0.045) Pro-B-Type Natriuretic Peptide 2703 pg/ml (0-1800) Beta-Hydroxybutyric Acid 0.92 mg/dL (0.2-2.81) Labs reviewed by ED physician. Medications Administered Medications (Trade) Dose Ordered Sig/Mustapha Route Start Time Stop Time Status Last Admin Dose Admin Furosemide (Lasix Inj) 40 mg NOW STAT IV 01/19/17 13:46 01/19/17 13:51 DC 01/19/17 14:28 40 MG Albuterol Sulfate (Ventolin 0.5% 2.5MG/0.5ML Neb) 2.5 mg NOW STAT INH 01/19/17 14:31 01/19/17 14:33 DC 01/19/17 14:52 2.5 MG ECG Indication: SOB/dyspnea Rate (beats per minute): 54 Rhythm: sinus bradycardia Findings: 1st degree AV block, RBBB, no acute ischemic change, no ectopy ED Course 1329: Past medical records reviewed. The patient was evaluated in room B10. A complete history and physical examination was performed by the resident. 1346: Ordered Lasix Inj 40 mg IV. 1425: Past medical records reviewed. The patient was evaluated in room B10. A complete history and physical examination was performed. 1431: Ordered Albuterol Sulfate 2.5 mg INH. 1515: The patient was reevaluated and the exam findings were discussed. She verbalized complete understanding and agreement with the treatment plan. She is going to be evaluated for further treatment. 1540: The resident discussed the patient's case with Rojelio Dong. She is going to evaluate the patient for further treatment. Medical Decision Differential diagnosis: Etiologies such as infections, reactive airway disease, pneumonia, pneumothorax , COPD, CHF, cardiac ischemia, pulmonary embolism, musculoskeletal, gastrointestinal, as well as others were entertained. This is an 89-year-old female who presents emergency department hypoxic and short of breath. The patient reports she has been short of breath for the past several days and cannot tie her shoes without becoming winded. Her chest x-ray is concerning for increasing pulmonary edema. Her creatinine is also bumped. Patient was given Lasix here in the emergency department. As the patient is still requiring oxygen we did discuss the case with case management. The patient was discussed with the hospitalist service who agreed to admit the patient. Patient family were in agreement with the treatment plan. Resident Physician Supervision Note: I was present with Dr. Plasencia during the history and exam. I discussed the case with the resident and agree with the findings and plan as documented in the note. Documented By: Carlos Palmer Consults Time Called: 1530 Consulting Physician: Rojelio Dong PA-C Returned Call: 1540 The resident discussed the patient's case with Rojelio Dong PA-C. She is going to evaluate the patient for further treatment. Impression Primary Impression: CHF exacerbation Scribe Attestation The scribe's documentation has been prepared under my direction and personally reviewed by me in its entirety. I confirm that the note above accurately reflects all work, treatment, procedures, and medical decision making performed by me. Departure Information Dispostion Being Evaluated By Hospitalist Referrals Adam Dominguez D.O. (PCP) Problem Qualifiers Primary Impression: CHF exacerbation Congestive heart failure type: unspecified congestive heart failure type Qualified Codes: I50.9 - Heart failure, unspecified
[2017-01-19 14:26] LABS: BASO % 0.1 %; BASO ABS # 0.01 K/uL (0-0.2); COMPLETE YES; EOS % 2.7 %; HEMATOCRIT 30.7 % (37-47); IG% 0.1 %; LYMPH % 5.8 %; LYMPH ABS # 0.57 K/uL (1.2-3.4); MEAN CELL VOLUME 92.5 fL (80-100); MEAN CORPUSCULAR HEMOGLOBIN 31.6 pg (25-34); MEAN CORPUSCULAR HGB CONC 34.2 g/dl (32-36); MEAN PLATELET VOLUME 9.8 fL (7.4-10.4); MONO % 9.4 %; NEUT % 81.9 %; PLATELET COUNT 219 K/uL (130-400); RED BLOOD COUNT 3.32 M/uL (4.2-5.4); WHITE BLOOD COUNT 9.75 K/uL (4.8-10.8)
[2017-01-19] MEDS ORDERED: ALBUTEROL 0.5% NEB SOLN 2.5 MG/0.5 ML VIAL INH STA (14:31)
[2017-01-19 14:34] LABS: INR 2.2 (0.9-1.1); PROTHROMBIN TIME (PATIENT) 24.7 SECONDS (9.0-12.0)
[2017-01-19 14:45] LABS: BLOOD UREA NITROGEN 41 mg/dl (7-18); BUN/CREATININE RATIO 19.4 (10-20); CALCIUM 8.9 mg/dl (8.5-10.1); CARBON DIOXIDE 28 mmol/L (21-32); CHLORIDE 102 mmol/L (98-107); GLUCOSE 311 mg/dl (70-99); POTASSIUM 4.2 mmol/L (3.5-5.1); SODIUM 137 mmol/L (136-145)
[2017-01-19 14:55] LABS: BETA-HYDROXYBUTYRATE 0.92 mg/dL (0.2-2.81)
[2017-01-19 15:15] LABS: CKMB/CK RATIO 2.7 (0-3.0)
[2017-01-19] MEDS ORDERED: ACETAMINOPHEN 325 MG TAB PO PRN (17:00)
[2017-01-19] MEDS ORDERED: ONDANSETRON INJ 2 MG/ML 2 ML VIAL IV PRN (17:00)
[2017-01-19] MEDS ORDERED: LSX40 PO (17:14)
[2017-01-19] MEDS ORDERED: VITAMIN (17:14)
[2017-01-19] MEDS ORDERED: GLUCOSE 40% GEL 15 GM TUBE PO PRN (17:15)
[2017-01-19] MEDS ORDERED: DEXTROSE 50% 50 ML SYR IV PRN (17:15)
[2017-01-19] MEDS ORDERED: GLUCAGON FOR INJ 1 MG VIAL SQ PRN (17:15)
[2017-01-19] MEDS ORDERED: GLUCOSE 10 TABS/TUBE PO PRN (17:15)
[2017-01-19] MEDS ORDERED: POLYETHYLENE (MIRALAX) 17 GM PACK PO PRN (17:30)
[2017-01-19] MEDS ORDERED: PHARMACY GLYCEMIC MGMT CONSULT PRN (17:50)
--- NOTE | 2017-01-19 18:22 | Progress Note ---
Progress Note Date of Service Jan 19, 2017. Progress Note ATTENDING ADDENDUM Record reviewed. Patient interviewed and examined. Care coordinated with Taylor Mcfadden PA-C. Please refer to her documentation for patient's history. 55 156/64 96% on 2L NC GEN: WNWD, in no acute distress, alert and appropriate, oxygen via NC in place, no tachypnea or conversational dyspnea, eating dinner HEENT: NC/AT, normal sclerae CARDIO: reg rate, S1/2 heard without m/g/r, +JVD LUNGS: CTA bilaterally, no crackles, rales or wheezes, good diaphragmatic excursion ABD: soft, non-tender, non-distended, no rebound or guarding EXTREMITY: + LE swelling, pitting edema not appreciated on my exam, extremities are warm and well-perfused SKIN: warm and dry Ms. Ortega is an 89 yoF admitted for SOB over the past 4 days thought to be from heart failure exacerbation. She does admit to dietary indiscretions with salt use recently. She denies chest pain or other infectious symptoms at this time such as fever or chills. Her cough is dry and non-productive. I agree with holding any antibiotics at this time. Regarding her leg swelling she is on Norvasc, which was held. She is uncertain how long she has been on this as her [id number] manages her medications for her. She states that her legs have been swollen since hospital discharge in Sep, however, when she saw Cardiology as an outpatient in Nov this was not brought up or discussed in the progress note. She was advised to continue her current medications. She does admit to some weight gain of about 6 lbs but states that she thought this was normal for her as she had lost weight during her prolonged hospitalization and rehab stay at [facility] recently. She does admit to some low blood sugars at home on Amaryl and long -acting insulin, which may be too aggressive in someone her age. Will defer to her outpatient PCP for adjustment and continue Lantus and ISS per protocol with inpatient glycemic pharmacist assistance. Her anemia is at baseline from her discharge in early Oct and she denies any active bleeding. Cardiac enzymes are negative x 1 set. Her CXR reveals small bilateral pleural effusions and bibasilar opacities c/w atelectasis and heart failure. Her EKG is unchanged from prior in Sep and reveals sinus brenda with a 1AVB, LVH and bifascicular block. Will cut metoprolol in half and continue other meds for PAF. Cont daily standing weights and strict I/Os to monitor output to Lasix IV given in ER. TTE and Cards consult in am. INR is therapeutic. Monitor overnight on telemetry. Pt is stable and eating dinner in her room, comfortable on 2L NC. Monitor on tele overnight. Arely Killian, Hospitalist
--- NOTE | 2017-01-19 18:24 | History and Physical ---
History & Physical Date & Time of Service: Jan 19, 2017 at 17:23 Chief Complaint: SOB Primary Care Physician: Adam Dominguez D.O. History of Present Illness Source: patient, clinic records, hospital records This is an 89 year old female with PMH of CKD IV, HTN, PAF on Coumadin, history of systolic CHF, DM type 2, and other problems listed below who presents to the ED for dyspnea on exertion. Patient follows with Dr. Shay for cardiology. Patient states for past 4 days she is dyspneic when leaning over to tie her shoes and climbing up the stairs with her cane. No SOB at rest. She reports associated "hacking" dry cough without sputum production. She reports bilateral LE edema since her hospitalization in Sep 2016-Oct 19 for acute hypoxic respiratory failure secondary to influenza, possible pneumonia, pulmonary edema , rapid atrial fibrillation. Echo at that time showed normal LV systolic function. She is not on home oxygen. Has chronic R knee pain which is worse since mechanical fall in November at which time had x-ray in ED showing small- mod effusion and OA. Had trace blood in stool when constipated/ straining which resolved with Miralax and had no further bleeding. She denies fever, chills, rhinorrhea, sore throat, ear ache, sinus pressure, MACKENZIE, dizziness, palpitations, chest pain, SOB at rest, orthopnea, increased abdominal girth, abdominal pain, N /V/D, melena, dysuria, urgency, frequency, calf pain, gum bleeding, epistaxis. Does not track daily weight. Admits to dietary indiscretion. Has been compliant with Lasix. Fasting blood sugars fluctuate at home. Past Medical/Surgical History Medical Problems: (1) Breast cancer Permanent Comment: Infiltrating ductal carcinoma the left breast, T1b N0M0 stage I Sabrian Septer positive, progesterone receptor positive, HER-2/george negative Status post lumpectomy and sentinel lymph node biopsy Status post radiation therapy completed 05/25/2003 Close observation and no hormonal therapy Abnormal right breast mammogram 12/31/2014 decision for 6 month follow-up Abnormal mammogram Status post ultrasound guided biopsy September 06 2015 revealing invasive ductal carcinoma grade 1 Estrogen receptor positive, progesterone receptor positive, HER-2/george negative Status post lumpectomy and sentinel lymph node biopsy 11/06/2015 [id number] M0 G1 Declined Oncotype DX and chemotherapy Status: Chronic (2) Cataract Status: Chronic (3) CKD (chronic kidney disease), stage IV Status: Chronic (4) Diastolic CHF Status: Chronic (5) DM type 2 (diabetes mellitus, type 2) Status: Chronic (6) Dyslipidemia Status: Chronic (7) History of bladder cancer Status: Chronic (8) History of melanoma Status: Chronic (9) Hypertension Status: Chronic (10) Paroxysmal atrial fibrillation Status: Chronic (11) S/p excision of bladder tumor Status: Chronic Surgical Problems: (1) H/O cystoscopy Status: Chronic (2) H/O hernia repair Status: Chronic (3) H/O lymph node biopsy Status: Chronic (4) H/O partial mastectomy Status: Chronic (5) S/P lumbar laminectomy Status: Chronic (6) S/P right knee arthroscopy Status: Chronic (7) S/P BROOKLYNN-BSO Status: Chronic (8) Status post Mohs surgery Status: Chronic Family History Cardiac disorder FATHER MOTHER Social History Smoking Status: Never Smoker Alcohol Use: none Drug Use: none Marital Status: Housing status: lives with family (with 2 of her sons. daughter in law in [place] assists with her medications. ) Occupational Status: retired Immunizations History of Tetanus Vaccine?: A COUPLE YEARS AGO History of Pneumococcal: Unknown History of Hepatitis B Vaccine: No Multi-Drug Resistant Organisms History of MDRO: No Allergies Coded Allergies: Anastrozole (Verified Allergy, Severe, ANAPHYLAXIS, 01/19/17) edema face/tongue/lips Pioglitazone (Unverified Allergy, Intermediate, HIVES, 01/19/17) Metformin (Verified Adverse Reaction, Intermediate, DIARRHEA, 01/19/17) Home Medications Scheduled Amiodarone Hcl (Cordarone), 200 MG PO BID Amlodipine (Norvasc), 5 MG PO HS Aspirin (Aspirin Ec), 81 MG PO DAILY Atorvastatin (Lipitor), 40 MG PO HS Furosemide (Furosemide), 40 MG PO DAILY Glimepiride (Amaryl), 4 MG PO DAILY Insulin Degludec (Tresiba Flextouch), 20 UNITS SC HS Isosorbide Mononitrate Ext Rel (Imdur Ext Rel), 30 MG PO QAM Metoprolol Succ (Toprol Xl) (Toprol-Xl), 25 MG PO BID Sitagliptin (Januvia), 25 MG PO QAM Warfarin Sod (Coumadin), 1 TAB PO 5XWK Warfarin Sod (Coumadin), 1 TAB PO 2XWK Scheduled PRN Acetaminophen (Tylenol), 650 MG PO Q4H PRN for Pain or Fever Polyethylene (Miralax), 17 GM PO DAILY PRN for Constipation Miscellaneous Medications [vitamin liquid], Unknown Dose Review of Systems Ten point ROS performed with pertinent positives and negatives noted in HPI. Physical Exam Vital Signs Date Time Temp Pulse Resp B/P Pulse Ox O2 Delivery O2 Flow Rate FiO2 01/19/17 16:20 79 Room Air 01/19/17 16:20 95 Nasal Cannula 3.0 01/19/17 15:39 55 20 156/64 96 Nasal Cannula 2.0 01/19/17 14:11 55 20 169/68 94 Nasal Cannula 2.0 01/19/17 14:09 58 01/19/17 13:49 93 Nasal Cannula 2.0 01/19/17 13:49 93 Nasal Cannula 2.0 01/19/17 13:15 36.8 54 18 159/56 88 Room Air 01/19/17 13:15 88 Room Air General Appearance: WD/WN, no apparent distress, + pertinent finding (pleasant alert elderly female, not in distress) Head: normocephalic, atraumatic Eyes: normal inspection, PERRL, sclerae normal ENT: hearing grossly normal Neck: supple, trachea midline Respiratory/Chest: normal breath sounds, no respiratory distress, no accessory muscle use, + crackles (moderate crackles bilateral bases), + pertinent finding (saturating well on supplemental O2) Cardiovascular: regular rate, rhythm, no murmur, normal peripheral pulses, + JVD Abdomen/GI: normal bowel sounds, non tender, soft Extremities/Musculoskelatal: no calf tenderness, + pertinent finding (3+ pitting edema bilateral lower extremities extending just above the knees. right anterior knee swelling and tenderness to palpation. no pain with passive ROM of right knee. ) Neurologic/Psych: alert, normal mood/affect, oriented x 3, + pertinent finding (grossly nonfocal, motor 5/5 all extremities) Skin: normal color, warm/dry Diagnostics Laboratory Results Results Past 24 Hours Test 01/19/17 14:15 Range/Units White Blood Count 9.75 4.8-10.8 K/uL Red Blood Count 3.32 4.2-5.4 M/uL Hemoglobin 10.5 12.0-16.0 g/dL Hematocrit 30.7 37-47 % Mean Corpuscular Volume 92.5 80-100 fL Mean Corpuscular Hemoglobin 31.6 25-34 pg Mean Corpuscular Hemoglobin Concent 34.2 32-36 g/dl Platelet Count 219 130-400 K/uL Mean Platelet Volume 9.8 7.4-10.4 fL Neutrophils (%) (Auto) 81.9 % Lymphocytes (%) (Auto) 5.8 % Monocytes (%) (Auto) 9.4 % Eosinophils (%) (Auto) 2.7 % Basophils (%) (Auto) 0.1 % Neutrophils # (Auto) 7.98 1.4-6.5 K/uL Lymphocytes # (Auto) 0.57 1.2-3.4 K/uL Monocytes # (Auto) 0.92 0.11-0.59 K/uL Eosinophils # (Auto) 0.26 0-0.5 K/uL Basophils # (Auto) 0.01 0-0.2 K/uL RDW Standard Deviation 44.9 36.4-46.3 fL RDW Coefficient of Variation 13.4 11.5-14.5 % Immature Granulocyte % (Auto) 0.1 % Immature Granulocyte # (Auto) 0.01 0.00-0.02 K/uL Prothrombin Time 24.7 9.0-12.0 SECONDS Prothromb Time International Ratio 2.2 0.9-1.1 Sodium Level 137 136-145 mmol/L Potassium Level 4.2 3.5-5.1 mmol/L Chloride Level 102 98-107 mmol/L Carbon Dioxide Level 28 21-32 mmol/L Anion Gap 7.0 3-11 mmol/L Blood Urea Nitrogen 41 7-18 mg/dl Creatinine 2.10 0.60-1.20 mg/dl Estimated GFR () 23.6 Estimated GFR (Non- 20.4 BUN/Creatinine Ratio 19.4 10-20 Random Glucose 311 70-99 mg/dl Calcium Level 8.9 8.5-10.1 mg/dl Total Creatine Kinase 103 26-192 U/L Creatine Kinase MB 2.8 0.5-3.6 ng/ml Creatine Kinase MB Ratio 2.7 0-3.0 Troponin I < 0.015 0-0.045 ng/ml Pro-B-Type Natriuretic Peptide 2703 0-1800 pg/ml Beta-Hydroxybutyric Acid 0.92 0.2-2.81 mg/dL Diagnostic Radiology CHEST ONE VIEW PORTABLE CLINICAL HISTORY: Cough. Shortness of breath. COMPARISON STUDY: Chest radiograph October 17, 2016. FINDINGS: There is no pneumothorax. Small bilateral pleural effusions persist. There are bibasilar opacities with left lower lobe volume loss. Right basilar opacity is increased since prior exam. Pulmonary edema has increased since prior exam. IMPRESSION: 1. Interstitial thickening consistent with mild pulmonary edema. 2. Small bilateral pleural effusions with associated bibasilar opacities which statistically reflect atelectasis although consolidation could appear similar. EKG sinus bradycardia with 1st degree AV block, RBBB, LAFB, bifascicular block, LVH , poor R wave progression, when compared to prior EKG premature supraventricular complexes are no longer present Impression Assessment and Plan ACUTE HYPOXIC RESPIRATORY FAILURE Was hypoxic to 79% on RA in ER; improved on nasal cannula Likely due to acute diastolic CHF possibly due to dietary indiscretion; prior echo 09/2016- EF 60-65% CXR- mild pulmonary edema, small bilateral pleural effusions, bibasilar opacities likely atelectasis vs. pneumonia Clinically pneumonia is unlikely- no fever, no leukocytosis, no sputum production Pro-BNP is 2700; initial troponin negative Home dose of Lasix is 40 mg PO daily Given Lasix 40 mg IV in ER; will continue with 40 mg IV daily Strict I/O's; standing weight today and daily Check echo Trend serial cardiac enzymes Consult cardiology Continue supplemental O2 per protocol Incentive spirometry for atelectasis BILATERAL LE EDEMA Persistent since hospitalization Sep 2016-Oct 2016 Hold amlodipine as it may be contributing Lasix dosing as noted above PAROXYSMAL ATRIAL FIBRILLATION Currently in sinus bradycardia Continue amiodarone Decrease Lopressor from 25 mg BID -> 12.5 mg BID On Coumadin; INR is therapeutic Continue Coumadin and monitor INR HYPERTENSION BP elevated to 150s-160s systolic in ER Hold amlodipine as may be contributing to LE edema Continue Lopressor at reduced dose for bradycardia Continue isosorbide CKD STAGE IV Creat is 2.1, recent baseline approx 1.9-2.0 in Oct 2016 Monitor renal function while on IV Lasix ANEMIA Stable from recent hospitalization Monitor CBC DM TYPE 2 Uncontrolled- A1c was 9.8 on 12/22/16 Reports fluctuating fasting blood sugar at home with hypo and hyper glycemia Takes long acting insulin- degludec 20 units HS at home Hold glimepiride and Januvia Glimepiride likely contributing to hypoglycemia especially in this elderly patient Starting Lantus weight based dosing and insulin sliding scale coverage Consult pharmacy for glycemic control RIGHT KNEE PAIN R knee x-ray in November showed small to moderate effusion, mild-mod OA, chondrocalcinosis, osteochondral lesion medial femoral condyle likely old Consider ortho eval as outpatient DYSLIPIDEMIA Continue statin DVT PROPHYLAXIS On Coumadin CODE STATUS Full code per her preference on prior admission DISPOSITION Lives at home with sons Follows with Dr. Dominguez for primary care PT, OT, social service evals requested Patient seen in collaboration with Dr. Killian. Please see her addendum. (addendum in separate note) Level of Care Telemetry Advanced Directives Existing Living Will: Yes Existing Power of Supervisor [employer]: Yes Resuscitation Status FULL RESUSCITATION VTE Prophylaxis VTE Risk Assessment Done? Y/N: Yes Risk Level: Moderate Given or contraindicated: Warfarin (Coumadin)
[2017-01-19] MEDS: INSULIN ASPART 100 UNITS/ML 3 ML PEN SC SCH ×2 (18:45→21:02)
[2017-01-19 20:03] VITALS: BP 160/63; PULSE 56; TEMP 36.4; O2SAT 92
[2017-01-19] MEDS: WARFARIN SOD 4 MG TAB PO SCH (20:05)
[2017-01-19] MEDS: AMIODARONE 200 MG TAB PO SCH (20:05)
[2017-01-19] MEDS: ATORVASTATIN 20 MG TAB PO SCH (20:06)
[2017-01-19] MEDS: METOPROLOL SUCC 25MG EXT REL TAB PO SCH (20:06)
[2017-01-19 20:33] LABS: CKMB/CK RATIO 2.7 (0-3.0)
--- NOTE | 2017-01-19 20:59 | Pharmacy Progress Note ---
Glycemic Control Intl Consult Date of Service Jan 19, 2017. Scope Glycemic Pharmacist consulted by Taylor Mcfadden PA-C on 01/19/17 for glycemic control and to write orders per [facility] inpatient glycemic control protocol Objective Weight (Kilograms): 66.500 Accuchecks BSG (last 24hrs): Test 01/19/17 14:15 01/19/17 17:30 01/19/17 20:26 Random Glucose 311 mg/dl (70-99) Bedside Glucose 250 mg/dl (70-90) 168 mg/dl (70-90) Laboratory Data (last 24hrs) Test 01/19/17 14:15 Anion Gap 7.0 mmol/L BUN/Creatinine Ratio 19.4 Blood Urea Nitrogen 41 mg/dl Creatinine 2.10 mg/dl Potassium Level 4.2 mmol/L Sodium Level 137 mmol/L White Blood Count 9.75 K/uL Red Blood Count 3.32 M/uL Hemoglobin 10.5 g/dL Hematocrit 30.7 % Mean Corpuscular Volume 92.5 fL Mean Corpuscular Hemoglobin 31.6 pg Mean Corpuscular Hemoglobin Concent 34.2 g/dl Platelet Count 219 K/uL Mean Platelet Volume 9.8 fL Neutrophils (%) (Auto) 81.9 % Lymphocytes (%) (Auto) 5.8 % Monocytes (%) (Auto) 9.4 % Eosinophils (%) (Auto) 2.7 % Basophils (%) (Auto) 0.1 % Neutrophils # (Auto) 7.98 K/uL Lymphocytes # (Auto) 0.57 K/uL Monocytes # (Auto) 0.92 K/uL Eosinophils # (Auto) 0.26 K/uL Basophils # (Auto) 0.01 K/uL Recent Pertinent Medications Outpatient Anti-diabetic Regimen: * Insulin degludec 20 units HS + Januvia 25 mg PO daily + Glimepiride 4 mg PO daily * A1c = 9.8 % from 12/22/16 (per H&P) Risk Factors for Insulin Resistance: * Diet: AHA/T2DM/low sodium Assessment & Plan ASSESSMENT: * 89 yo female with h/o T2DM admitted with hyperglycemia. Poor outpatient control evidenced by A1c of 9.8% (12/2016), although A1c has improved since starting out patient insulin therapy (previous A1c of 12.7% in September of 2016) . * Will hold oral antidiabetic agents at this time and treat patient with basal + bolus/prandial insulin coverage. * Oral agents are not recommended for inpatient use d/t drug interactions, changing PO intake, and difficulty titrating for acute hyper/hypoglycemia. * Recommend against continuing glimepiride due to risk of hypoglycemia ( patient also on insulin, elderly, and h/o CKD) * ADA & AACE recommend a goal blood sugar range 140-180 mg/dl for the majority of critically ill & non-critically ill patients. However, more stringent targets may be selected in individual cases. Will utilize more stringent goal of 120-160 mg/dl based on patient age & comorbidities. PLAN FOR INPATIENT GLYCEMIC CONTROL: * Holding outpatient oral diabetes medications * Basal insulin with LANTUS 16 units SQ HS * NOVOLOG insulin per scale ACHS * Goal Range: Low 120 mg/dL - High 160 mg/dL * Correction Factor: 25 mg/dL/unit * Nutritional / Prandial insulin per carb ratio of 1 unit per 8 grams CHO consumed * Please note that the plan above was derived based on current level of insulin resistance and hospital stress. These recommendations are appropriate for inpatient admission only. Plan of care upon discharge will need to be reassessed to avoid potential outpatient hypo/hyperglycemia. Thank you.
[2017-01-19] MEDS ORDERED: AMLODIPINE BESYLATE 5 MG TAB PO SCH (21:00)
[2017-01-19] MEDS ORDERED: METOPROLOL SUCC 25MG EXT REL TAB PO SCH (21:00)
[2017-01-19] MEDS ORDERED: INSULIN GLARGINE SOLOSTAR 100 UNITS/ML 3 ML PEN SC SCH (21:00)
[2017-01-19 23:17] VITALS: BP 151/67; PULSE 57; TEMP 36.5; O2SAT 96
[2017-01-20] VITALS (11 sets, daily range): BP systolic 140–163; BP diastolic 48–81; PULSE 51–65; TEMP 36.3–36.8; O2SAT 91–95; Ht 165.1 cm; Wt 66.5 kg
[2017-01-20 03:08] LABS: CKMB/CK RATIO 2.9 (0-3.0)
[2017-01-20 06:24] LABS: MEAN CELL VOLUME 93.9 fL (80-100); MEAN CORPUSCULAR HEMOGLOBIN 31.4 pg (25-34); MEAN CORPUSCULAR HGB CONC 33.4 g/dl (32-36); PLATELET COUNT 217 K/uL (130-400); RED BLOOD COUNT 3.09 M/uL (4.2-5.4); WHITE BLOOD COUNT 10.14 K/uL (4.8-10.8)
[2017-01-20 06:39] LABS: INR 2.5 (0.9-1.1); PROTHROMBIN TIME (PATIENT) 27.6 SECONDS (9.0-12.0)
[2017-01-20 06:56] LABS: BUN/CREATININE RATIO 19.5 (10-20); CALCIUM 8.2 mg/dl (8.5-10.1); MAGNESIUM 1.9 mg/dl (1.8-2.4); POTASSIUM 3.5 mmol/L (3.5-5.1)
[2017-01-20] MEDS: INSULIN ASPART 100 UNITS/ML 3 ML PEN SC SCH ×4 (07:00→21:06)
[2017-01-20 08:00] LABS: ESTIMATED AVERAGE GLUCOSE 229 mg/dl; HA1C FLAG Normal (Normal)
[2017-01-20] MEDS: ISOSORBIDE MONONITRATE 30 MG TABCR PO SCH (09:45)
[2017-01-20] MEDS: ASPIRIN 81 MG ECTAB PO SCH (09:45)
[2017-01-20] MEDS: AMIODARONE 200 MG TAB PO SCH (09:45)
[2017-01-20] MEDS: FUROSEMIDE INJ 40 MG in SYRINGE 0 ML IV SCH (09:45)
[2017-01-20] MEDS: METOPROLOL SUCC 25MG EXT REL TAB PO SCH ×2 (09:47→21:00)
--- NOTE | 2017-01-20 10:41 | CARDIOLOGY CONSULTATION ---
DATE OF CONSULTATION: 01/20/2017 REFERRING PHYSICIAN: Dr. Maxwell Ivory. REASON FOR CONSULTATION: Congestive heart failure. CHIEF COMPLAINT ON ADMISSION: Shortness of breath. HISTORY OF PRESENT ILLNESS: Ms. Ortega is an 89-year-old female who presented to the Emergency Department with shortness of breath when bending over to tie her shoes. She notes she has had progressive dyspnea on exertion over the past few weeks. Dry cough reported. No fever, chills or sick contacts. Denies orthopnea or PND. Notes chronic lower extremity edema which is unchanged. She was treated with intravenous diuretic with approximately 1600 mL of urine output. Currently, she is resting comfortably supine. Her resting 2D transthoracic echo is pending. She denies chest pain or palpitations. Carries a history of paroxysmal atrial fibrillation in the setting of acute influenza infection. She is chronically anticoagulated with warfarin. REVIEW OF SYSTEMS: The pertinent positives noted above, a comprehensive 10-system review is otherwise negative. PAST MEDICAL HISTORY: 1. Influenza. 2. Paroxysmal atrial fibrillation, maintained in sinus rhythm with amiodarone. 3. CKD stage IV. 4. Diastolic CHF. 5. Diabetes. 6. Dyslipidemia. 7. Bladder cancer. 8. Hypertension. 9. Bladder tumor resection. PAST SURGICAL HISTORY: 1. Cystoscopy. 2. Hernia repair. 3. Lymph node biopsy. 4. Partial mastectomy. 5. Lumbar laminectomy. 6. Arthroscopic knee surgery. 7. Total abdominal hysterectomy with bilateral salpingo-oophorectomy. 8. Mohs surgery. FAMILY HISTORY: Negative for premature CAD or sudden cardiac ; however, noncontributory given the patient's advanced age. SOCIAL HISTORY: Lifelong nonsmoker. She lives with her 2 sons in [place]. ALLERGIES: ANASTROZOLE, PIOGLITAZONE, METFORMIN. OUTPATIENT MEDICATIONS: 1. Amiodarone 200 mg twice daily. 2. Amlodipine 5 mg at bedtime. 3. Aspirin 81 mg daily. 4. Lipitor 40 mg daily. 5. Furosemide 40 mg daily. 6. Amaryl 4 mg daily. 7. Imdur 30 mg daily. 8. Toprol-XL 25 mg twice daily. 9. Januvia 25 mg daily. 10. Coumadin as directed. ECG on admission demonstrates sinus bradycardia with a first-degree AV block, prolonged QT, right bundle-branch block, left anterior fascicular block. LABORATORY DATA: ProBNP on admission 2703. Sodium 139, potassium is 3.5, chloride is 102, CO2 is 30, BUN is 39, creatinine is 2.00. Her INR is 2.5. White blood cell count 10.14, hemoglobin is 9.7, platelet count is 217. Telemetry demonstrates sinus rhythm, sinus bradycardia. PHYSICAL EXAMINATION: VITAL SIGNS: Temperature is 36.7 degrees centigrade, pulse 55 beats per minute and regular, respiratory rate is 18 breaths per minute, blood pressure 151/68, SaO2 is 91% on room air. GENERAL: NAD, hard of hearing, awake, alert and oriented x3. HEENT: Her mucous membranes are moist. No scleral icterus. Conjunctivae are pink. NECK: Neck veins are flat. No JVD, no carotid bruit. HEART: Regular with a normal S1 and S2. No murmur, rub or gallop. LUNGS: Demonstrate fine crackles at the bases bilaterally. No rhonchi or wheeze. ABDOMEN: Soft and nontender. No rebound or guarding. Normal bowel sounds. EXTREMITIES: Warm and dry with +1 to 2 pretibial edema bilaterally. NEUROLOGIC: Demonstrates no focal motor deficit. FINAL IMPRESSION: 1. This 89-year-old female admitted with acute decompensated diastolic heart failure. Clinical improvement with intravenous diuretic therapy with persistent lower extremity edema noted since discharge in September at the time of acute influenza infection. 2. Paroxysmal atrial fibrillation, maintained in sinus rhythm with amiodarone and appropriately anticoagulated with warfarin. 3. Hypertension -- borderline control. 4. Chronic kidney disease stage III to IV -- creatinine mildly above baseline. 5. Chronic anemia. 6. Diabetes type 2. PLAN AND RECOMMENDATIONS: Agree with discontinuation of amlodipine with chronic lower extremity edema. We will continue to monitor blood pressure closely. I would not add EVELIN or ARB due to renal insufficiency. She will continue her intravenous furosemide daily with a repeat basic metabolic panel in the a.m. Overall, the patient appears to be improving clinically. She will continue warfarin for a goal INR of 2.0-3.0. A repeat resting 2D transthoracic echo has been performed with results pending. Amiodarone will be reduced to 200 mg once daily. I will continue to follow closely during hospitalization. Thank you for allowing me to take part in the care of your patient.
--- NOTE | 2017-01-20 10:54 | Pharmacy Progress Note ---
Glycemic Control: Progress Nt Date of Service Jan 20, 2017. Scope Glycemic Pharmacist consulted by Yojana Mcfadden PA-C on 01/19/17 for glycemic control and to write orders per [facility] inpatient glycemic control protocol. Objective Accuchecks BSG (last 24hrs): Test 01/19/17 14:15 01/19/17 17:30 01/19/17 20:26 Random Glucose 311 mg/dl Bedside Glucose 250 mg/dl 168 mg/dl Test 01/20/17 05:55 01/20/17 06:54 01/20/17 07:05 01/20/17 07:31 Bedside Glucose 45 mg/dl 55 mg/dl 65 mg/dl 107 mg/dl Laboratory Data (last 24hrs) HbA1c: Test 01/20/17 05:55 Hemoglobin A1c 9.6 % (4.5-5.6) H Recent Pertinent Medications Outpatient Anti-diabetic Regimen: Oral Agents: * Amaryl 4mg PO daily * Januvia 25mg PO QAM Basal insulin: * Tresiba [insulin degludec] 20 units SQ HS The patient is currently receiving: * Basal insulin: Lantus 16 units every 24 hours given at bedtime ( initial dose was 80% of outpatient dosing) * Correctional Insulin: Novolog Correction per scale ACHS Goal Range: Low 120 mg/dL - High 160 mg/dL Correction Factor: 25 mg/dL/unit * Prandial insulin: Per carb ratio of 1 unit per 8 grams CHO consumed * Oral Agents: On hold for admission Risk Factors for Insulin Resistance: * Diet Risk Factors for Insulin Sensitivity: * GERMAINE/renal impairment * Edema --> erratic insulin absorption Assessment & Plan ASSESSMENT: * 89yo T2DM female with improving glycemic control over the past few months with basal insulin titration * A1c 12.7% 10/07/16 --> 9.8% 12/22/16 --> 9.6% 01/20/17 * Pt is on multiple oral agents + long acting basal insulin as an outpatient * Oral agents held on admission per inpatient recommendations * Initial dose of basal insulin given in house was reduced by 20% of outpatient dosing since outpatient basal insulin has a longer half life than Lantus used in house. This dose reduction was done to help minimize the risk of hypoglycemia * Weight/stress based bolus insulin initiated * Pt with LOW BSG this AM secondary to possibly GERMAINE + sulfonylurea (long- standing hypo), decreased PO intake, too much insulin? * Will continue to hold oral agents * Adjust basal insulin dosing downwards and continue to titrate based on BSG trends * ADA & AACE recommend a goal blood sugar range 140-180 mg/dl for the majority of critically ill & non-critically ill patients. However, more stringent targets may be selected in individual cases. PLAN FOR INPATIENT GLYCEMIC CONTROL: * Continue to hold outpatient oral diabetes medications * DECREASE Basal insulin with Lantus to 12 units SQ HS (was 16 units HS) * LOOSEN NovoLog per scale ACHS or Q6hrs while NPO * Goal Range: Low 140 mg/dL - High 180 mg/dL (was 120-160) * Correction Factor: 35 mg/dL/unit (was 25) * Nutritional / Prandial insulin per carb ratio of 1 unit per 12 grams CHO consumed (was 8) RECOMMENDATIONS FOR DISCHARGE: * Patient is currently working with PCP on insulin dose titration. A1c is responding to outpatient antidiabetic regimen adjustments. * May consider discontinuing glimepiride due to risk of hypoglycemia (patient also on insulin, elderly, and h/o CKD) * Please note that the plan above was derived based on current level of insulin resistance and hospital stress. These recommendations are appropriate for inpatient admission only. Plan of care upon discharge will need to be reassessed to avoid potential outpatient hypo/hyperglycemia. Thank you.
[2017-01-20] MEDS ORDERED: POTASSIUM CHLORIDE 10 MEQ TABCR PO STA (14:08)
[2017-01-20] MEDS ORDERED: POTASSIUM CHLORIDE 20 MEQ/15 ML UDC PO STA (14:44)
[2017-01-20] MEDS: WARFARIN SOD 2 MG TAB PO SCH (16:06)
--- NOTE | 2017-01-20 16:25 | ECHOCARDIOGRAM REPORT ---
*NOTICE TO RECEIVING CONSTITUTION PARTY AGENCY This information is strictly Confidential and protected under [place] law. [place] law prohibits you from making any further disclosure of this information unless further disclosure is expressly permitted by the written consent of the person to whom it pertains or is authorized by law. A general authorization for the release of medical or other information is not sufficient for this purpose. Hospital accepts no responsibility if the information is made available to any other person, INCLUDING THE PATIENT. Interpretation Summary * Name: NIKKO CARR Study Date: 01/20/2017 09:00 AM BP: 140/48 mmHg * Patient Location: C.2T\S\S230\S\1 HR: 51 * : 1925 (M/d/yyyy) Gender: Female Height: 65 in * Age: 89 yrs Ethnicity: CA Weight: 146 lb * Ordering Physician: Taylor Mcfadden * Referring Physician: Adam Dominguez D.O. * Performed By: Deepa Ross * * Reason For Study: CHF * BSA: 1.7 m2 * The study was technically adequate. * Compared to prior study, changes are noted. * -- Conclusions -- * Ejection Fraction = 65-70%. * Calcified mitral apparatus causing mitral stenosis. * There is moderate mitral stenosis. * There is mild to moderate mitral regurgitation. * There is mild tricuspid regurgitation. * Right ventricular systolic pressure is elevated at 50-60mmHg. * Aortic valve sclerosis mild, without significant aortic valvular stenosis. Procedure Details * A complete two-dimensional transthoracic echocardiogram was performed (2D, M-mode, Doppler and color flow Doppler). Left Ventricle * The left ventricle is normal in size. * There is mild concentric left ventricular hypertrophy. * Ejection Fraction = 65-70%. * Left ventricular systolic function is normal. * The left ventricular wall motion is normal. Right Ventricle * The right ventricular cavity size is normal (basal dimension <4.2 cm in right ventricular apical 4-chamber view). * The right ventricular systolic function is qualitatively normal. Atria * The left atrium is moderately dilated. * Right atrial size is normal. Mitral Valve * There is severe mitral annular calcification. * The mitral valve leaflets are moderately thickened and calcified. * Calcified mitral apparatus causing mitral stenosis. * There is moderate mitral stenosis. * There is mild to moderate mitral regurgitation. Tricuspid Valve * The tricuspid valve is not well visualized. * There is no tricuspid stenosis. * There is mild tricuspid regurgitation. * Right ventricular systolic pressure is elevated at 50-60mmHg. Aortic Valve * The aortic valve is not well visualized. * Aortic valve sclerosis mild, without significant aortic valvular stenosis. * No hemodynamically significant valvular aortic stenosis. * There is no significant aortic regurgitation. Pulmonic Valve * The pulmonary valve is inadequately visualized, but the Doppler data is adequate for interpretation. * There is no pulmonic valvular stenosis. * Mild pulmonic valvular regurgitation. Great Vessels * The aortic root is normal size. Pericardium/Pleural * There is no pericardial effusion. Great Vessels * Normal inferior vena cava size and collapsability with sniff indicates a normal right atrial pressure of 3 mmHg Left Ventricular Diastolic Function * Pulse wave TDI of the anterior and posterior mitral annulas demonstrates abnormal LV relaxation MMode 2D Measurements and Calculations IVSd 1.2 cm IVSs 1.8 cm LVIDd 4.0 cm LVIDs 2.1 cm LVPWd 1.4 cm LVPWs 2.0 cm IVS/LVPW 0.86 FS 48.9 % EDV(Teich) 70.7 ml ESV(Teich) 13.6 ml EF(Teich) 80.8 % EDV(cubed) 64.8 ml ESV(cubed) 8.6 ml EF(cubed) 86.7 % % IVS thick 57.4 % % LVPW thick 51.0 % LV mass(C)d 179.1 grams LV mass(C)dI 103.5 grams/m\S\2 LV mass(C)s 167.2 grams LV mass(C)sI 96.6 grams/m\S\2 CO(Teich) 3.1 l/min CI(Teich) 1.8 l/min/m\S\2 SV(Teich) 57.1 ml SI(Teich) 33.0 ml/m\S\2 CO(cubed) 3.0 l/min CI(cubed) 1.8 l/min/m\S\2 SV(cubed) 56.1 ml SI(cubed) 32.4 ml/m\S\2 ACS 1.3 cm LA dimension 4.1 cm asc Aorta Diam 3.0 cm LVOT diam 1.7 cm LVOT area 2.4 cm\S\2 LVAd ap4 23.8 cm\S\2 LVLd ap4 6.9 cm EDV(MOD-sp4) 67.0 ml LVAs ap4 11.1 cm\S\2 LVLs ap4 5.9 cm ESV(MOD-sp4) 17.0 ml EF(MOD-sp4) 74.6 % LVAd ap2 22.8 cm\S\2 LVLd ap2 6.7 cm EDV(MOD-sp2) 68.0 ml LVAs ap2 10.2 cm\S\2 LVLs ap2 5.4 cm ESV(MOD-sp2) 16.0 ml EF(MOD-sp2) 76.5 % CO(MOD-sp4) 2.7 l/min CI(MOD-sp4) 1.6 l/min/m\S\2 SV(MOD-sp4) 50.0 ml SI(MOD-sp4) 28.9 ml/m\S\2 CO(MOD-sp2) 2.8 l/min CI(MOD-sp2) 1.6 l/min/m\S\2 SV(MOD-sp2) 52.0 ml SI(MOD-sp2) 30.0 ml/m\S\2 Doppler Measurements and Calculations MV E max yohana 225.4 cm/sec MV A max yohana 180.6 cm/sec MV E/A 1.2 MV V2 max 255.2 cm/sec MV max PG 26.0 mmHg MV V2 mean 130.9 cm/sec MV mean PG 8.2 mmHg MV V2 VTI 86.2 cm MV P1/2t max yohana 227.0 cm/sec MV P1/2t 154.0 msec MVA(P1/2t) 1.4 cm\S\2 MV dec slope 431.8 cm/sec\S\2 MV dec time 0.44 sec Ao V2 max 122.7 cm/sec Ao max PG 6.0 mmHg Ao max PG (full) 1.6 mmHg LAURA(V,A) 2.0 cm\S\2 LAURA(V,D) 2.0 cm\S\2 LV V1 max PG 4.4 mmHg LV V1 max 104.7 cm/sec MR max yoahna 602.7 cm/sec MR max PG 145.3 mmHg MR mean yohana 433.8 cm/sec MR mean PG 89.4 mmHg MR VTI 242.9 cm PA V2 max 72.1 cm/sec PA max PG 2.1 mmHg PI end-d yohana 159.6 cm/sec TR max yohana 362.7 cm/sec
--- NOTE | 2017-01-20 16:28 | Progress Note ---
Internal Med Progress Note Date of Service: Jan 20, 2017. Provider Documentation: SUBJECTIVE: The patient was seen and examined Feels much better since admission Denies any CP,palpitation,SOB Was noted to be at very low blood sugars OBJECTIVE: Vital Signs-as noted below Exam: General-No distress at rest Eyes-normal ENT-normal Neck-supple Lungs-Decreased breath sound bilaterally Minimal crackles at the bases Heart-Regular,no murmur appreciated Abdomen-Benign,no masses,bowel sound present Extremities-Trace edema bilaterally Neuro-AAOx3 Lab data as noted below. ASSESSMENT & PLAN: ACUTE HYPOXIC RESPIRATORY FAILURE Secondary to Acute decompensated Diastolic heart failure Was hypoxic to 79% on RA in ER; improved on nasal cannula CXR- mild pulmonary edema, small bilateral pleural effusions, bibasilar opacities likely atelectasis vs. pneumonia Pro-BNP is 2700; initial troponin negative Given Lasix 40 mg IV in ER; will continue with 40 mg IV daily and pt is improving Appreciate Cardiology input Check echo Trend serial cardiac enzymes-negative for any ACS PAROXYSMAL ATRIAL FIBRILLATION Currently in sinus bradycardia Continue amiodarone but the dose has been reduced Decrease Lopressor from 25 mg BID -> 12.5 mg BID On Coumadin; INR is therapeutic Continue Coumadin and monitor INR BILATERAL LEG EDEMA Secondary to Heart failure as mentioned earlier Persistent since hospitalization Sep 2016-Oct 2016 Hold amlodipine as it may be contributing Lasix dosing as noted above HYPERTENSION BP elevated to 150s-160s systolic in ER Hold amlodipine as may be contributing to LE edema Continue Lopressor at reduced dose for bradycardia Continue isosorbide CKD STAGE IV Creat is 2.1, recent baseline approx 1.9-2.0 in Oct 2016 Monitor renal function while on IV Lasix Supplement Potassium as needed ANEMIA Stable from recent hospitalization Monitor CBC DM TYPE 2 Uncontrolled- A1c was 9.8 on 12/22/16 Reports fluctuating fasting blood sugar at home with hypo and hyper glycemia Takes long acting insulin- degludec 20 units HS at home Hold glimepiride and Januvia Appreciate pharmacy input and recommendation RIGHT KNEE PAIN R knee x-ray in November showed small to moderate effusion, mild-mod OA, chondrocalcinosis, osteochondral lesion medial femoral condyle likely old Consider ortho eval as outpatient DYSLIPIDEMIA Continue statin DVT PROPHYLAXIS On Coumadin CODE STATUS Full code per her preference on prior admission DISPOSITION Lives at home with sons Follows with Dr. Dominguez for primary care PT, OT, social service evals requested Vital Signs: Date Time Temp Pulse Resp B/P Pulse Ox O2 Delivery O2 Flow Rate FiO2 01/20/17 15:21 51 93 01/20/17 15:17 36.8 54 20 148/81 93 Nasal Cannula 2.0 01/20/17 12:27 36.6 55 19 152/61 92 Nasal Cannula 1.0 01/20/17 12:00 94 Nasal Cannula 1.0 01/20/17 09:45 65 01/20/17 08:00 91 Nasal Cannula 2.0 01/20/17 07:24 36.7 55 18 151/68 91 Nasal Cannula 2.0 01/20/17 04:00 Nasal Cannula 2.0 01/20/17 03:43 36.6 51 20 140/48 94 Nasal Cannula 2.0 01/20/17 00:00 Nasal Cannula 2.0 01/19/17 23:17 36.5 57 18 151/67 96 Nasal Cannula 2.0 01/19/17 20:03 36.4 56 18 160/63 92 Nasal Cannula 2.0 01/19/17 20:00 Nasal Cannula 2.0 01/19/17 17:15 55 20 164/62 95 Nasal Cannula 3.0 01/19/17 16:54 Nasal Cannula 2.0 Lab Results: Results Past 24 Hours Test 01/19/17 17:30 01/19/17 19:55 01/19/17 20:26 01/20/17 02:23 Range/Units Bedside Glucose 250 168 70-90 mg/dl Total Creatine Kinase 88 72 26-192 U/L Creatine Kinase MB 2.4 2.1 0.5-3.6 ng/ml Creatine Kinase MB Ratio 2.7 2.9 0-3.0 Troponin I < 0.015 0.023 0-0.045 ng/ml Test 01/20/17 05:55 01/20/17 06:54 01/20/17 07:05 01/20/17 07:31 Range/Units White Blood Count 10.14 4.8-10.8 K/uL Red Blood Count 3.09 4.2-5.4 M/uL Hemoglobin 9.7 12.0-16.0 g/dL Hematocrit 29.0 37-47 % Mean Corpuscular Volume 93.9 80-100 fL Mean Corpuscular Hemoglobin 31.4 25-34 pg Mean Corpuscular Hemoglobin Concent 33.4 32-36 g/dl RDW Standard Deviation 46.0 36.4-46.3 fL RDW Coefficient of Variation 13.4 11.5-14.5 % Platelet Count 217 130-400 K/uL Mean Platelet Volume 10.0 7.4-10.4 fL Prothrombin Time 27.6 9.0-12.0 SECONDS Prothromb Time International Ratio 2.5 0.9-1.1 Sodium Level 139 136-145 mmol/L Potassium Level 3.5 3.5-5.1 mmol/L Chloride Level 102 98-107 mmol/L Carbon Dioxide Level 30 21-32 mmol/L Anion Gap 7.0 3-11 mmol/L Blood Urea Nitrogen 39 7-18 mg/dl Creatinine 2.00 0.60-1.20 mg/dl Est Creatinine Clear Calc Drug Dose 17.2 ml/min Estimated GFR () 25.0 Estimated GFR (Non- 21.6 BUN/Creatinine Ratio 19.5 10-20 Random Glucose 45 70-99 mg/dl Estimated Average Glucose 229 mg/dl Hemoglobin A1c 9.6 4.5-5.6 % Calcium Level 8.2 8.5-10.1 mg/dl Magnesium Level 1.9 1.8-2.4 mg/dl Bedside Glucose 55 65 107 70-90 mg/dl Test 01/20/17 11:19 01/20/17 16:00 Range/Units Bedside Glucose 165 131 70-90 mg/dl
[2017-01-20] MEDS: ATORVASTATIN 20 MG TAB PO SCH (21:02)
[2017-01-20] MEDS: INSULIN GLARGINE SOLOSTAR 100 UNITS/ML 3 ML PEN SC SCH (21:07)
[2017-01-21] VITALS (10 sets, daily range): BP systolic 146–171; BP diastolic 60–73; PULSE 51–63; TEMP 36.5–37; O2SAT 89–96
[2017-01-21 06:08] LABS: BUN/CREATININE RATIO 16.9 (10-20); CALCIUM 8.6 mg/dl (8.5-10.1); MAGNESIUM 1.9 mg/dl (1.8-2.4); PHOSPHORUS 3.4 mg/dl (2.5-4.9); POTASSIUM 4.1 mmol/L (3.5-5.1)
[2017-01-21 07:09] LABS: HEMATOCRIT 30.7 % (37-47); MEAN CELL VOLUME 93.9 fL (80-100); MEAN CORPUSCULAR HEMOGLOBIN 31.8 pg (25-34); MEAN CORPUSCULAR HGB CONC 33.9 g/dl (32-36); MEAN PLATELET VOLUME 10.4 fL (7.4-10.4); PLATELET COUNT 220 K/uL (130-400); RED BLOOD COUNT 3.27 M/uL (4.2-5.4); WHITE BLOOD COUNT 9.73 K/uL (4.8-10.8)
[2017-01-21] MEDS: INSULIN ASPART 100 UNITS/ML 3 ML PEN SC SCH ×4 (07:51→20:48)
[2017-01-21] MEDS: AMIODARONE 200 MG TAB PO SCH (08:28)
[2017-01-21] MEDS: ASPIRIN 81 MG ECTAB PO SCH (08:28)
[2017-01-21] MEDS: FUROSEMIDE INJ 40 MG in SYRINGE 0 ML IV SCH (08:28)
[2017-01-21] MEDS: ISOSORBIDE MONONITRATE 30 MG TABCR PO SCH (08:29)
[2017-01-21] MEDS: METOPROLOL SUCC 25MG EXT REL TAB PO SCH (08:29)
--- NOTE | 2017-01-21 09:23 | Cardiology Follow-Up ---
Subjective General Date of Service: Jan 21, 2017. Pt evaluation today including: conversation w/ patient, physical exam, chart review, lab review, review of studies, review of inpatient medication list History of Present Illness The patient is a 89 year old female seen in follow up. Feeling better today. Edema mildly improved. No orthopnea. Denies CP. No dysrhythmia on telemetry. Allergies Coded Allergies: Anastrozole (Verified Allergy, Severe, ANAPHYLAXIS, 01/19/17) edema face/tongue/lips Pioglitazone (Unverified Allergy, Intermediate, HIVES, 01/19/17) Metformin (Verified Adverse Reaction, Intermediate, DIARRHEA, 01/19/17) Social History Smoking Status: Never Smoker Hx Tobacco Use In Past Year?: No Hx Alcohol Use - Type And Amou: No Hx Substance Use - Type And Am: No Problem List Medical Problems: (1) Acute respiratory failure with hypoxia Status: Acute (2) CHF exacerbation Status: Acute (3) Dehydration Status: Acute (4) Dyspnea on exertion Status: Acute (5) Elevated troponin Status: Acute (6) Hyperglycemia Status: Acute (7) Right knee pain Status: Acute Review of Systems Respiratory: + dyspnea on exertion, + shortness of breath, No cough, No dyspnea at rest, No hemoptysis, No sputum, No wheezing Cardiac: + edema, No PND, No chest pain, No claudication, No orthopnea, No palpitations Physical Exam Vital Signs Last Vital Signs Documentation Date Time Temp Pulse Resp B/P Pulse Ox O2 Delivery O2 Flow Rate FiO2 01/21/17 07:00 36.8 61 18 151/73 89 Nasal Cannula 2.0 Physical Exam Constitutional: General Apperance: overweight Level of Distress: chronically ill Head: normocephalic, atraumatic ENMT: normal ENT inspection Neck: supple, trachea midline Lungs: Auscultation: no wheezing, no rhonchi, rales/crackles on the left Cardiovascular: Heart Auscultation: RRR, normal S1, normal S2 Abdomen: Bowel Sounds: normal Inspection & Palpation: soft, non-distended, no tenderness, guarding & rebound Extremities: no cyanosis, no clubbing, no ulcers, edema (2+ pretibial edema) Neurologic: Gait & Station: pertinent finding (No focal motor deficit) Cranial Nerves: grossly intact Assessment and Plan Assessment and Plan FINAL IMPRESSION: 1. Acute decompensated diastolic heart failure. -improving with IV diuretic therapy 2. Paroxysmal atrial fibrillation, maintained in sinus rhythm with amiodarone and appropriately anticoagulated with warfarin. 3. Hypertension - uncontrolled 4. Moderate mitral stenosis / mild tricuspid regurgitation / moderate pulmonary HTN 4. Chronic kidney disease stage III to IV -- creatinine stable today 5. Chronic anemia. 6. Diabetes type 2. PLAN AND RECOMMENDATIONS: Increase imdur to 60mg daily. Continue IV diuresis. Change toprol dosing to 25mg once daily. Amlodipine discontinued due to edema. Follow fluid balance, daily weights, electrolytes GFR daily. Laboratory Results Last 24 Hours Test 01/20/17 11:19 01/20/17 16:00 01/20/17 20:16 01/21/17 04:52 Bedside Glucose 165 mg/dl 131 mg/dl 255 mg/dl White Blood Count 9.73 K/uL Red Blood Count 3.27 M/uL Hemoglobin 10.4 g/dL Hematocrit 30.7 % Mean Corpuscular Volume 93.9 fL Mean Corpuscular Hemoglobin 31.8 pg Mean Corpuscular Hemoglobin Concent 33.9 g/dl RDW Standard Deviation 45.8 fL RDW Coefficient of Variation 13.4 % Platelet Count 220 K/uL Mean Platelet Volume 10.4 fL Sodium Level 138 mmol/L Potassium Level 4.1 mmol/L Chloride Level 100 mmol/L Carbon Dioxide Level 31 mmol/L Anion Gap 7.0 mmol/L Blood Urea Nitrogen 34 mg/dl Creatinine 2.00 mg/dl Est Creatinine Clear Calc Drug Dose 17.2 ml/min Estimated GFR () 25.0 Estimated GFR (Non- 21.6 BUN/Creatinine Ratio 16.9 Random Glucose 136 mg/dl Calcium Level 8.6 mg/dl Phosphorus Level 3.4 mg/dl Magnesium Level 1.9 mg/dl Test 01/21/17 06:18 Bedside Glucose 146 mg/dl
[2017-01-21] MEDS ORDERED: ISOSORBIDE MONONITRATE 30 MG TABCR PO ONE (10:00)
[2017-01-21] MEDS ORDERED: METOPROLOL SUCC 25MG EXT REL TAB PO ONE (10:00)
--- NOTE | 2017-01-21 15:11 | Progress Note ---
Internal Med Progress Note Date of Service: Jan 21, 2017. Provider Documentation: SUBJECTIVE: The patient was seen and examined Feels much better since admission Denies any CP,palpitation,SOB Remains stable OBJECTIVE: Vital Signs-as noted below Exam: General-No distress at rest Eyes-normal ENT-normal Neck-supple Lungs-Decreased breath sound bilaterally Minimal crackles at the bases Heart-Regular,no murmur appreciated Abdomen-Benign,no masses,bowel sound present Extremities-Trace edema bilaterally Neuro-AAOx3 Lab data as noted below. ASSESSMENT & PLAN: ACUTE HYPOXIC RESPIRATORY FAILURE Secondary to Acute decompensated Diastolic heart failure Was hypoxic to 79% on RA in ER; improved on nasal cannula CXR- mild pulmonary edema, small bilateral pleural effusions, bibasilar opacities likely atelectasis vs. pneumonia Pro-BNP is 2700; initial troponin negative Given Lasix 40 mg IV in ER; will continue with 40 mg IV daily and pt is improving Appreciate Cardiology input ECHO:: Ejection Fraction = 65-70%. * Calcified mitral apparatus causing mitral stenosis. * There is moderate mitral stenosis. * There is mild to moderate mitral regurgitation. * There is mild tricuspid regurgitation. * Right ventricular systolic pressure is elevated at 50-60mmHg. * Aortic valve sclerosis mild, without significant aortic valvular stenosis. Trend serial cardiac enzymes-negative for any ACS Clinically much better PAROXYSMAL ATRIAL FIBRILLATION Currently in sinus bradycardia Continue amiodarone but the dose has been reduced Decrease Lopressor from 25 mg BID -> 12.5 mg BID On Coumadin; INR is therapeutic Continue Coumadin and monitor INR BILATERAL LEG EDEMA Secondary to Heart failure as mentioned earlier Persistent since hospitalization Sep 2016-Oct 2016 Hold amlodipine as it may be contributing Lasix dosing as noted above Legs are better today HYPERTENSION BP elevated to 150s-160s systolic in ER Hold amlodipine as may be contributing to LE edema Continue Lopressor at reduced dose for bradycardia Continue isosorbide CKD STAGE IV Creat is 2.1, recent baseline approx 1.9-2.0 in Oct 2016 Monitor renal function while on IV Lasix Supplement Potassium as needed Remains stable at the baseline ANEMIA Stable from recent hospitalization HB >10 DM TYPE 2 Uncontrolled- A1c was 9.8 on 12/22/16 Reports fluctuating fasting blood sugar at home with hypo and hyper glycemia Takes long acting insulin- degludec 20 units HS at home Hold glimepiride and Januvia Appreciate pharmacy input and recommendation RIGHT KNEE PAIN R knee x-ray in November showed small to moderate effusion, mild-mod OA, chondrocalcinosis, osteochondral lesion medial femoral condyle likely old Consider ortho eval as outpatient DYSLIPIDEMIA Continue statin DVT PROPHYLAXIS On Coumadin CODE STATUS Full code per her preference on prior admission DISPOSITION Lives at home with sons Follows with Dr. Dominguez for primary care PT, OT, social service evals requested Likely discharge tomorrow Vital Signs: Date Time Temp Pulse Resp B/P Pulse Ox O2 Delivery O2 Flow Rate FiO2 01/21/17 13:45 54 96 01/21/17 11:10 36.7 54 18 164/60 96 Nasal Cannula 2.0 01/21/17 07:00 36.8 61 18 151/73 89 Nasal Cannula 2.0 01/21/17 04:44 36.5 59 18 159/68 92 Nasal Cannula 01/21/17 04:00 Room Air 01/21/17 00:01 36.8 58 16 154/60 95 2.0 01/21/17 00:00 Room Air 01/20/17 20:00 95 Nasal Cannula 2.0 01/20/17 19:11 36.3 58 19 163/51 92 Nasal Cannula 2.0 01/20/17 16:00 94 Nasal Cannula 2.0 01/20/17 15:21 51 93 01/20/17 15:17 36.8 54 20 148/81 93 Nasal Cannula 2.0 Lab Results: Results Past 24 Hours Test 01/20/17 16:00 01/20/17 20:16 01/21/17 04:52 01/21/17 06:18 Range/Units Bedside Glucose 131 255 146 70-90 mg/dl White Blood Count 9.73 4.8-10.8 K/uL Red Blood Count 3.27 4.2-5.4 M/uL Hemoglobin 10.4 12.0-16.0 g/dL Hematocrit 30.7 37-47 % Mean Corpuscular Volume 93.9 80-100 fL Mean Corpuscular Hemoglobin 31.8 25-34 pg Mean Corpuscular Hemoglobin Concent 33.9 32-36 g/dl RDW Standard Deviation 45.8 36.4-46.3 fL RDW Coefficient of Variation 13.4 11.5-14.5 % Platelet Count 220 130-400 K/uL Mean Platelet Volume 10.4 7.4-10.4 fL Sodium Level 138 136-145 mmol/L Potassium Level 4.1 3.5-5.1 mmol/L Chloride Level 100 98-107 mmol/L Carbon Dioxide Level 31 21-32 mmol/L Anion Gap 7.0 3-11 mmol/L Blood Urea Nitrogen 34 7-18 mg/dl Creatinine 2.00 0.60-1.20 mg/dl Est Creatinine Clear Calc Drug Dose 17.2 ml/min Estimated GFR () 25.0 Estimated GFR (Non- 21.6 BUN/Creatinine Ratio 16.9 10-20 Random Glucose 136 70-99 mg/dl Calcium Level 8.6 8.5-10.1 mg/dl Phosphorus Level 3.4 2.5-4.9 mg/dl Magnesium Level 1.9 1.8-2.4 mg/dl Test 01/21/17 11:06 Range/Units Bedside Glucose 158 70-90 mg/dl
[2017-01-21] MEDS: WARFARIN SOD 4 MG TAB PO SCH (16:51)
[2017-01-21] MEDS: ATORVASTATIN 20 MG TAB PO SCH (20:46)
[2017-01-21] MEDS: INSULIN GLARGINE SOLOSTAR 100 UNITS/ML 3 ML PEN SC SCH (20:48)
[2017-01-22] VITALS (15 sets, daily range): BP systolic 155–177; BP diastolic 56–79; PULSE 57–63; TEMP 36.6–37; O2SAT 86–94
[2017-01-22] MEDS ORDERED: METOPROLOL SUCC 25MG EXT REL TAB PO SCH (06:00)
[2017-01-22 06:28] LABS: PROTHROMBIN TIME (PATIENT) 21.9 SECONDS (9.0-12.0)
[2017-01-22 06:46] LABS: BUN/CREATININE RATIO 17.3 (10-20); CALCIUM 8.2 mg/dl (8.5-10.1); MAGNESIUM 1.7 mg/dl (1.8-2.4); POTASSIUM 3.6 mmol/L (3.5-5.1)
[2017-01-22] MEDS: INSULIN ASPART 100 UNITS/ML 3 ML PEN SC SCH ×4 (07:43→20:59)
[2017-01-22] MEDS: FUROSEMIDE INJ 40 MG in SYRINGE 0 ML IV SCH (09:01)
[2017-01-22] MEDS: ISOSORBIDE MONONITRATE 60 MG TABCR PO SCH (09:02)
[2017-01-22] MEDS: AMIODARONE 200 MG TAB PO SCH (09:02)
[2017-01-22] MEDS: ASPIRIN 81 MG ECTAB PO SCH (09:02)
--- NOTE | 2017-01-22 10:25 | Pharmacy Progress Note ---
Glycemic Control: Progress Nt Date of Service Jan 22, 2017. Scope Glycemic Pharmacist consulted by Taylor Mcfadden PA-C on 01/19/17 for glycemic control and to write orders per [facility] inpatient glycemic control protocol. Objective Accuchecks BSG (last 24hrs): Test 01/21/17 11:06 01/21/17 16:13 01/21/17 20:05 01/22/17 05:40 Bedside Glucose 158 mg/dl (70-90) 179 mg/dl (70-90) 201 mg/dl (70-90) Random Glucose 130 mg/dl (70-99) Test 01/22/17 06:30 Bedside Glucose 138 mg/dl (70-90) Laboratory Data (last 24hrs) Test 01/22/17 05:40 Anion Gap 8.0 mmol/L BUN/Creatinine Ratio 17.3 Blood Urea Nitrogen 35 mg/dl Creatinine 2.00 mg/dl Potassium Level 3.6 mmol/L Sodium Level 136 mmol/L HbA1c: Test 01/20/17 05:55 Hemoglobin A1c 9.6 % (4.5-5.6) H Recent Pertinent Medications Outpatient Anti-diabetic Regimen: Oral Agents: * Amaryl 4mg PO daily * Januvia 25mg PO QAM Basal insulin: * Tresiba [insulin degludec] 20 units SQ HS Risk Factors for Insulin Resistance: * Diet Risk Factors for Insulin Sensitivity: * GERMAINE/renal impairment * Edema --> erratic insulin absorption Assessment & Plan ASSESSMENT: 01/20/17 * 89yo T2DM female with improving glycemic control over the past few months with basal insulin titration * A1c 12.7% 10/07/16 --> 9.8% 12/22/16 --> 9.6% 01/20/17 * Pt is on multiple oral agents + long acting basal insulin as an outpatient * Oral agents held on admission per inpatient recommendations * Initial dose of basal insulin given in house was reduced by 20% of outpatient dosing since outpatient basal insulin has a longer half life than Lantus used in house. This dose reduction was done to help minimize the risk of hypoglycemia * Weight/stress based bolus insulin initiated * Pt with LOW BSG this AM secondary to possibly GERMAINE + sulfonylurea (long- standing hypo), decreased PO intake, too much insulin? * Will continue to hold oral agents * Adjust basal insulin dosing downwards and continue to titrate based on BSG trends * ADA & AACE recommend a goal blood sugar range 140-180 mg/dl for the majority of critically ill & non-critically ill patients. However, more stringent targets may be selected in individual cases. 01/22/17 * Patient is currently receiving an average of 24 units of insulin per day * 12 units of basal insulin * 12 units of prandial/correctional insulin * BSGs ranging 140-200 over the past 24hrs * Risk factors for insulin resistance are constant over the past 24hrs * Pt status improving * Since insulin regimen is split 50/50 and BSGs have remained stable, no need to make any further changes to regimen PLAN FOR INPATIENT GLYCEMIC CONTROL: * Continue to hold outpatient oral diabetes medications * Continue Basal insulin with Lantus 12 units SQ HS * Continue NovoLog per scale ACHS or Q6hrs while NPO * Goal Range: Low 140 mg/dL - High 180 mg/dL * Correction Factor: 35 mg/dL/unit * Nutritional / Prandial insulin per carb ratio of 1 unit per 12 grams CHO consumed RECOMMENDATIONS FOR DISCHARGE: * Patient is currently working with PCP on insulin dose titration. A1c is responding to outpatient antidiabetic regimen adjustments. * May consider discontinuing glimepiride due to risk of hypoglycemia (patient also on insulin, elderly, and h/o CKD) * Please note that the plan above was derived based on current level of insulin resistance and hospital stress. These recommendations are appropriate for inpatient admission only. Plan of care upon discharge will need to be reassessed to avoid potential outpatient hypo/hyperglycemia. Thank you.
--- NOTE | 2017-01-22 12:40 | Cardiology Follow-Up ---
Subjective General Date of Service: Jan 22, 2017. Pt evaluation today including: conversation w/ patient, physical exam, chart review, lab review, review of studies, conversation w/ beverage sales consultant, review of inpatient medication list History of Present Illness The patient is a 89 year old female seen in follow up. Feeling better today. Edema unchanged No orthopnea. Denies CP. No dysrhythmia on telemetry. Allergies Coded Allergies: Anastrozole (Verified Allergy, Severe, ANAPHYLAXIS, 01/19/17) edema face/tongue/lips Pioglitazone (Unverified Allergy, Intermediate, HIVES, 01/19/17) Metformin (Verified Adverse Reaction, Intermediate, DIARRHEA, 01/19/17) Social History Smoking Status: Never Smoker Hx Tobacco Use In Past Year?: No Hx Alcohol Use - Type And Amou: No Hx Substance Use - Type And Am: No Problem List Medical Problems: (1) Acute respiratory failure with hypoxia Status: Acute (2) CHF exacerbation Status: Acute (3) Dehydration Status: Acute (4) Dyspnea on exertion Status: Acute (5) Elevated troponin Status: Acute (6) Hyperglycemia Status: Acute (7) Right knee pain Status: Acute Review of Systems Respiratory: + dyspnea on exertion, No cough, No dyspnea at rest, No hemoptysis , No shortness of breath, No wheezing Cardiac: + edema, No PND, No chest pain, No orthopnea, No palpitations Physical Exam Vital Signs Last Vital Signs Documentation Date Time Temp Pulse Resp B/P Pulse Ox O2 Delivery O2 Flow Rate FiO2 01/22/17 12:29 37.0 57 16 155/76 91 Room Air 01/22/17 08:19 1.0 Physical Exam Constitutional: General Apperance: overweight Level of Distress: chronically ill Head: normocephalic, atraumatic ENMT: normal ENT inspection Neck: supple, trachea midline Lungs: Auscultation: no wheezing, no rhonchi, rales/crackles on the left Cardiovascular: Heart Auscultation: RRR, normal S1, normal S2 Abdomen: Bowel Sounds: normal Inspection & Palpation: soft, non-distended, no tenderness, guarding & rebound Extremities: no cyanosis, no clubbing, no ulcers, edema (2+ pretibial edema) Neurologic: Gait & Station: pertinent finding (No focal motor deficit) Cranial Nerves: grossly intact Assessment and Plan Assessment and Plan FINAL IMPRESSION: 1. Acute decompensated diastolic heart failure. -improving with IV diuretic therapy 2. Paroxysmal atrial fibrillation, maintained in sinus rhythm with amiodarone and appropriately anticoagulated with warfarin. 3. Hypertension - mildly improved with titration of Imdur 4. Moderate mitral stenosis / mild tricuspid regurgitation / moderate pulmonary HTN 4. Chronic kidney disease stage III to IV -- creatinine stable 5. Chronic anemia. 6. Diabetes type 2. PLAN AND RECOMMENDATIONS: Continue IV diuresis. Increase toprol to 25mg once daily. Give additional 12.5mg x1 now. Consider addition of low dose hydralazine during hospitalization. Amlodipine discontinued due to edema. No EVELIN / ARB due to CKD. Follow fluid balance, daily weights, electrolytes GFR daily. Laboratory Results Last 24 Hours Test 01/21/17 16:13 01/21/17 20:05 01/22/17 05:40 01/22/17 06:30 Bedside Glucose 179 mg/dl 201 mg/dl 138 mg/dl Prothrombin Time 21.9 SECONDS Prothromb Time International Ratio 2.0 Sodium Level 136 mmol/L Potassium Level 3.6 mmol/L Chloride Level 97 mmol/L Carbon Dioxide Level 31 mmol/L Anion Gap 8.0 mmol/L Blood Urea Nitrogen 35 mg/dl Creatinine 2.00 mg/dl Est Creatinine Clear Calc Drug Dose 17.2 ml/min Estimated GFR () 25.0 Estimated GFR (Non- 21.6 BUN/Creatinine Ratio 17.3 Random Glucose 130 mg/dl Calcium Level 8.2 mg/dl Magnesium Level 1.7 mg/dl Test 01/22/17 10:55 Bedside Glucose 208 mg/dl
[2017-01-22] MEDS ORDERED: METOPROLOL SUCC 25MG EXT REL TAB PO ONE (13:00)
[2017-01-22] MEDS: WARFARIN SOD 4 MG TAB PO SCH (16:12)
--- NOTE | 2017-01-22 16:12 | Progress Note ---
Internal Med Progress Note Date of Service: Jan 22, 2017. Provider Documentation: SUBJECTIVE: The patient was seen and examined Feels much better since admission Denies any complaints Legs are improving OBJECTIVE: Vital Signs-as noted below Exam: General-No distress at rest Eyes-normal ENT-normal Neck-supple Lungs-Decreased breath sound bilaterally Minimal crackles at the bases Heart-Regular,no murmur appreciated Abdomen-Benign,no masses,bowel sound present Extremities-Trace edema bilaterally Neuro-AAOx3 Lab data as noted below. ASSESSMENT & PLAN: ACUTE HYPOXIC RESPIRATORY FAILURE Secondary to Acute decompensated Diastolic heart failure Was hypoxic to 79% on RA in ER; improved on nasal cannula CXR- mild pulmonary edema, small bilateral pleural effusions, bibasilar opacities likely atelectasis vs. pneumonia Pro-BNP is 2700; initial troponin negative Given Lasix 40 mg IV in ER; will continue with 40 mg IV daily and pt is improving Appreciate Cardiology input ECHO:: Ejection Fraction = 65-70%. * Calcified mitral apparatus causing mitral stenosis. * There is moderate mitral stenosis. * There is mild to moderate mitral regurgitation. * There is mild tricuspid regurgitation. * Right ventricular systolic pressure is elevated at 50-60mmHg. * Aortic valve sclerosis mild, without significant aortic valvular stenosis. Trend serial cardiac enzymes-negative for any ACS Clinically much better Will need more diuresis PAROXYSMAL ATRIAL FIBRILLATION Currently in sinus bradycardia Continue amiodarone but the dose has been reduced Decrease Lopressor from 25 mg BID -> 12.5 mg BID On Coumadin; INR is therapeutic Continue Coumadin and monitor INR BILATERAL LEG EDEMA Secondary to Heart failure as mentioned earlier Persistent since hospitalization Sep 2016-Oct 2016 Hold amlodipine as it may be contributing Lasix dosing as noted above Legs are better and improving further HYPERTENSION BP elevated to 150s-160s systolic in ER Hold amlodipine as may be contributing to LE edema Continue Lopressor at reduced dose for bradycardia Continue isosorbide May need small dose of Hydralazine to control BP CKD STAGE IV Creat is 2.1, recent baseline approx 1.9-2.0 in Oct 2016 Monitor renal function while on IV Lasix Supplement Potassium as needed Remains stable at the baseline ANEMIA Stable from recent hospitalization HB >10 DM TYPE 2 Uncontrolled- A1c was 9.8 on 12/22/16 Reports fluctuating fasting blood sugar at home with hypo and hyper glycemia Takes long acting insulin- degludec 20 units HS at home Hold glimepiride and Januvia Appreciate pharmacy input and recommendation RIGHT KNEE PAIN R knee x-ray in November showed small to moderate effusion, mild-mod OA, chondrocalcinosis, osteochondral lesion medial femoral condyle likely old Consider ortho eval as outpatient DYSLIPIDEMIA Continue statin DVT PROPHYLAXIS On Coumadin CODE STATUS Full code per her preference on prior admission DISPOSITION Lives at home with sons Follows with Dr. Dominguez for primary care PT, OT, social service evals requested Likely discharge in a day or two Vital Signs: Date Time Temp Pulse Resp B/P Pulse Ox O2 Delivery O2 Flow Rate FiO2 01/22/17 15:42 36.7 61 20 158/72 90 Room Air 01/22/17 13:48 60 94 01/22/17 12:29 37.0 57 16 155/76 91 Room Air 01/22/17 09:02 94 Room Air 01/22/17 08:59 86 Room Air 01/22/17 08:19 36.8 58 19 169/71 92 Nasal Cannula 1.0 01/22/17 08:00 92 Nasal Cannula 1.0 01/22/17 06:06 63 168/56 01/22/17 04:03 36.8 62 20 156/71 93 Nasal Cannula 2.0 01/22/17 04:00 93 Nasal Cannula 2.0 01/22/17 00:00 93 Nasal Cannula 2.0 01/21/17 23:47 37.0 63 20 171/69 93 Nasal Cannula 2.0 01/21/17 20:00 96 Nasal Cannula 2.0 01/21/17 19:28 36.8 51 18 146/72 96 Lab Results: Results Past 24 Hours Test 01/21/17 16:13 01/21/17 20:05 01/22/17 05:40 01/22/17 06:30 Range/Units Bedside Glucose 179 201 138 70-90 mg/dl Prothrombin Time 21.9 9.0-12.0 SECONDS Prothromb Time International Ratio 2.0 0.9-1.1 Sodium Level 136 136-145 mmol/L Potassium Level 3.6 3.5-5.1 mmol/L Chloride Level 97 98-107 mmol/L Carbon Dioxide Level 31 21-32 mmol/L Anion Gap 8.0 3-11 mmol/L Blood Urea Nitrogen 35 7-18 mg/dl Creatinine 2.00 0.60-1.20 mg/dl Est Creatinine Clear Calc Drug Dose 17.2 ml/min Estimated GFR () 25.0 Estimated GFR (Non- 21.6 BUN/Creatinine Ratio 17.3 10-20 Random Glucose 130 70-99 mg/dl Calcium Level 8.2 8.5-10.1 mg/dl Magnesium Level 1.7 1.8-2.4 mg/dl Test 01/22/17 10:55 01/22/17 15:57 Range/Units Bedside Glucose 208 170 70-90 mg/dl
[2017-01-22] MEDS: ATORVASTATIN 20 MG TAB PO SCH (20:57)
[2017-01-22] MEDS: INSULIN GLARGINE SOLOSTAR 100 UNITS/ML 3 ML PEN SC SCH (20:59)
[2017-01-23] VITALS (12 sets, daily range): BP systolic 136–188; BP diastolic 47–74; PULSE 57–63; TEMP 36.4–36.8; O2SAT 90–94
[2017-01-23 05:51] LABS: CALCIUM 8.3 mg/dl (8.5-10.1); CREATININE 2.1 mg/dl (0.60-1.20); MAGNESIUM 1.8 mg/dl (1.8-2.4); POTASSIUM 3.4 mmol/L (3.5-5.1)
[2017-01-23] MEDS: METOPROLOL SUCC 25MG EXT REL TAB PO SCH (06:08)
[2017-01-23] MEDS: FUROSEMIDE INJ 40 MG in SYRINGE 0 ML IV SCH (09:08)
[2017-01-23] MEDS: ASPIRIN 81 MG ECTAB PO SCH (09:08)
[2017-01-23] MEDS: AMIODARONE 200 MG TAB PO SCH (09:09)
[2017-01-23] MEDS: ISOSORBIDE MONONITRATE 60 MG TABCR PO SCH (09:09)
[2017-01-23] MEDS: INSULIN ASPART 100 UNITS/ML 3 ML PEN SC SCH ×4 (09:10→21:27)
[2017-01-23] MEDS ORDERED: POTASSIUM CHLORIDE 20 MEQ/15 ML UDC PO ONE (10:15)
--- NOTE | 2017-01-23 11:40 | Progress Note ---
Internal Med Progress Note Date of Service: Jan 23, 2017. Provider Documentation: SUBJECTIVE: The patient was seen and examined Feels much better since admission Denies any complaints Ready to go home today OBJECTIVE: Vital Signs-as noted below Exam: General-No distress at rest Eyes-normal ENT-normal Neck-supple Lungs-Decreased breath sound bilaterally No crackles Heart-Regular,no murmur appreciated Abdomen-Benign,no masses,bowel sound present Extremities-Trace edema bilaterally Neuro-AAOx3 Lab data as noted below. ASSESSMENT & PLAN: ACUTE HYPOXIC RESPIRATORY FAILURE Secondary to Acute decompensated Diastolic heart failure Was hypoxic to 79% on RA in ER; improved on nasal cannula CXR- mild pulmonary edema, small bilateral pleural effusions, bibasilar opacities likely atelectasis vs. pneumonia Pro-BNP is 2700; initial troponin negative Given Lasix 40 mg IV in ER; will continue with 40 mg IV daily and pt is improving Appreciate Cardiology input ECHO:: Ejection Fraction = 65-70%. * Calcified mitral apparatus causing mitral stenosis. * There is moderate mitral stenosis. * There is mild to moderate mitral regurgitation. * There is mild tricuspid regurgitation. * Right ventricular systolic pressure is elevated at 50-60mmHg. * Aortic valve sclerosis mild, without significant aortic valvular stenosis. Trend serial cardiac enzymes-negative for any ACS Clinically much better Diuresed a lot .lost about 5 KGs Likely to go home today PAROXYSMAL ATRIAL FIBRILLATION Currently in sinus bradycardia Continue amiodarone but the dose has been reduced Decrease Lopressor from 25 mg BID -> 12.5 mg BID On Coumadin; INR is therapeutic Continue Coumadin and monitor INR INR therapeutic since admission BILATERAL LEG EDEMA Secondary to Heart failure as mentioned earlier Persistent since hospitalization Sep 2016-Oct 2016 Hold amlodipine as it may be contributing Lasix dosing as noted above Leg edema is moderately improved HYPERTENSION BP elevated to 150s-160s systolic in ER Hold amlodipine as may be contributing to LE edema Continue Lopressor at reduced dose for bradycardia Continue isosorbide May need small dose of Hydralazine to control BP CKD STAGE IV Creat is 2.1, recent baseline approx 1.9-2.0 in Oct 2016 Monitor renal function while on IV Lasix Supplement Potassium as needed Remains stable at the baseline Creatinine is slightly up to 2.1 Will discontinue IV lasix ANEMIA Stable from recent hospitalization HB >10 DM TYPE 2 Uncontrolled- A1c was 9.8 on 12/22/16 Reports fluctuating fasting blood sugar at home with hypo and hyper glycemia Takes long acting insulin- degludec 20 units HS at home Hold glimepiride and Januvia Appreciate pharmacy input and recommendation RIGHT KNEE PAIN R knee x-ray in November showed small to moderate effusion, mild-mod OA, chondrocalcinosis, osteochondral lesion medial femoral condyle likely old Consider ortho eval as outpatient DYSLIPIDEMIA Continue statin DVT PROPHYLAXIS On Coumadin CODE STATUS Full code per her preference on prior admission DISPOSITION Lives at home with sons Follows with Dr. Dominguez for primary care PT, OT, social service evals requested Likely discharge this afternoon Vital Signs: Date Time Temp Pulse Resp B/P Pulse Ox O2 Delivery O2 Flow Rate FiO2 01/23/17 10:30 36.7 57 17 158/74 92 Room Air 01/23/17 07:46 36.7 61 19 182/68 91 Nasal Cannula 1.0 01/23/17 07:09 36.7 61 17 182/68 92 Nasal Cannula 1.0 01/23/17 06:09 61 161/69 01/23/17 04:04 36.8 61 17 154/47 93 Nasal Cannula 1.0 01/23/17 04:00 93 Nasal Cannula 1.0 01/23/17 00:00 91 Nasal Cannula 1.0 01/22/17 23:36 36.7 63 18 177/67 91 Nasal Cannula 1.0 01/22/17 20:00 93 Room Air 01/22/17 19:42 36.6 59 20 158/79 93 Room Air 01/22/17 16:00 Room Air 01/22/17 15:42 36.7 61 20 158/72 90 Room Air 01/22/17 13:48 60 94 01/22/17 12:29 37.0 57 16 155/76 91 Room Air 01/22/17 12:00 92 Room Air Lab Results: Results Past 24 Hours Test 01/22/17 15:57 01/22/17 20:10 01/23/17 05:14 01/23/17 06:45 Range/Units Bedside Glucose 170 236 84 70-90 mg/dl Sodium Level 137 136-145 mmol/L Potassium Level 3.4 3.5-5.1 mmol/L Chloride Level 98 98-107 mmol/L Carbon Dioxide Level 32 21-32 mmol/L Anion Gap 7.0 3-11 mmol/L Blood Urea Nitrogen 38 7-18 mg/dl Creatinine 2.10 0.60-1.20 mg/dl Est Creatinine Clear Calc Drug Dose 16.3 ml/min Estimated GFR () 23.6 Estimated GFR (Non- 20.4 BUN/Creatinine Ratio 18.0 10-20 Random Glucose 92 70-99 mg/dl Calcium Level 8.3 8.5-10.1 mg/dl Magnesium Level 1.8 1.8-2.4 mg/dl Test 01/23/17 10:32 Range/Units Bedside Glucose 188 70-90 mg/dl
--- NOTE | 2017-01-23 11:50 | CARDIOLOGY PROGRESS NOTE ---
DATE: 01/23/2017 DATE: 01/23/2017. The patient seen and examined. Chart, medications, telemetry reviewed. SUBJECTIVE: The patient feels improved. Has manifested significant diuresis since hospitalization. Weight per bed scale down 4 kilograms. She notes edema and lower abdominal bloating is improved. Blood pressure is still mildly elevated. Notes no chest pains, tachypalpitations, syncope or near syncope. Continues to have persistent lower extremity edema though improved. OBJECTIVE: VITAL SIGNS: Heart rate is 57, blood pressure is 158/74. NECK: Thick. There is no distinct jugular venous distention. LUNGS: Clear. CARDIOVASCULAR EXAMINATION: Regular. There is no S3 gallop. ABDOMEN: Soft. EXTREMITIES: Reveal 2+ lower extremity edema to the knees. LABORATORY STUDIES: Sodium is 137, potassium is 3.4, chloride 98, bicarbonate is 32, BUN is 38, creatinine is 2.1. IMPRESSION: An 89-year-old female with acute on chronic decompensated diastolic heart failure, moderate mitral stenosis, moderate pulmonary hypertension, history of paroxysmal atrial fibrillation controlled in sinus. PLAN: Continue IV diuretics. We will add low dose hydralazine today for hypertension control, continue IV diuretics for an additional 24 hours.
[2017-01-23] MEDS ORDERED: HydrALAZINE 10 MG TAB PO ONE (12:00)
[2017-01-23] MEDS: WARFARIN SOD 2 MG TAB PO SCH (16:43)
[2017-01-23] MEDS: HydrALAZINE 10 MG TAB PO SCH (20:11)
[2017-01-23] MEDS: ATORVASTATIN 20 MG TAB PO SCH (20:11)
[2017-01-23] MEDS: INSULIN GLARGINE SOLOSTAR 100 UNITS/ML 3 ML PEN SC SCH (21:28)
[2017-01-24] VITALS (8 sets, daily range): BP systolic 149–180; BP diastolic 54–71; PULSE 53–60; TEMP 36.5–36.9; O2SAT 91–97
[2017-01-24] MEDS: METOPROLOL SUCC 25MG EXT REL TAB PO SCH (05:41)
[2017-01-24 06:03] LABS: INR 1.8 (0.9-1.1); PROTHROMBIN TIME (PATIENT) 19.6 SECONDS (9.0-12.0)
[2017-01-24 06:14] LABS: BUN/CREATININE RATIO 17.3 (10-20); CALCIUM 8.4 mg/dl (8.5-10.1); CREATININE 2.2 mg/dl (0.60-1.20); MAGNESIUM 1.8 mg/dl (1.8-2.4); POTASSIUM 3.4 mmol/L (3.5-5.1)
[2017-01-24] MEDS: ASPIRIN 81 MG ECTAB PO SCH (07:54)
[2017-01-24] MEDS: AMIODARONE 200 MG TAB PO SCH (07:55)
[2017-01-24] MEDS: ISOSORBIDE MONONITRATE 60 MG TABCR PO SCH (07:55)
[2017-01-24] MEDS: HydrALAZINE 10 MG TAB PO SCH (07:55)
[2017-01-24] MEDS: INSULIN ASPART 100 UNITS/ML 3 ML PEN SC SCH ×4 (08:02→21:32)
[2017-01-24] MEDS: FUROSEMIDE INJ 40 MG in SYRINGE 0 ML IV SCH (08:03)
[2017-01-24] MEDS ORDERED: POTASSIUM CHLORIDE 10 MEQ TABCR PO STA (11:11)
[2017-01-24] MEDS ORDERED: POTASSIUM CHLORIDE 20 MEQ/15 ML UDC PO STA (11:16)
--- NOTE | 2017-01-24 11:16 | Progress Note ---
Internal Med Progress Note Date of Service: Jan 24, 2017. Provider Documentation: SUBJECTIVE: The patient was seen and examined Feels a lot better Getting Physical Therapy Wants to go home today OBJECTIVE: Vital Signs-as noted below Exam: General-No distress at rest Eyes-normal ENT-normal Neck-supple Lungs-Decreased breath sound bilaterally No crackles Heart-Regular,no murmur appreciated Abdomen-Benign,no masses,bowel sound present Extremities-Trace edema bilaterally -improved a lot Neuro-AAOx3 Lab data as noted below. ASSESSMENT & PLAN: ACUTE HYPOXIC RESPIRATORY FAILURE Secondary to Acute decompensated Diastolic heart failure Was hypoxic to 79% on RA in ER; improved on nasal cannula CXR- mild pulmonary edema, small bilateral pleural effusions, bibasilar opacities likely atelectasis vs. pneumonia Pro-BNP is 2700; initial troponin negative Given Lasix 40 mg IV in ER; will continue with 40 mg IV daily and pt is improving Appreciate Cardiology input ECHO:: Ejection Fraction = 65-70%. * Calcified mitral apparatus causing mitral stenosis. * There is moderate mitral stenosis. * There is mild to moderate mitral regurgitation. * There is mild tricuspid regurgitation. * Right ventricular systolic pressure is elevated at 50-60mmHg. * Aortic valve sclerosis mild, without significant aortic valvular stenosis. Trend serial cardiac enzymes-negative for any ACS Clinically much better Diuresed a lot .lost about >5 KGs since admission Likely to go home today PAROXYSMAL ATRIAL FIBRILLATION Currently in sinus bradycardia Continue amiodarone but the dose has been reduced Decrease Lopressor from 25 mg BID -> 12.5 mg BID On Coumadin; INR is therapeutic Continue Coumadin and monitor INR INR therapeutic since admission BILATERAL LEG EDEMA Secondary to Heart failure as mentioned earlier Persistent since hospitalization Sep 2016-Oct 2016 Hold amlodipine as it may be contributing Lasix dosing as noted above Leg edema is moderately improved HYPERTENSION BP elevated to 150s-160s systolic in ER Hold amlodipine as may be contributing to LE edema Continue Lopressor at reduced dose for bradycardia Continue isosorbide May need small dose of Hydralazine to control BP BP remains on the higher side -expected to go down CKD STAGE IV Creat is 2.1, recent baseline approx 1.9-2.0 in Oct 2016 Monitor renal function while on IV Lasix Supplement Potassium as needed Remains stable at the baseline Creatinine is slightly up to 2.2 today ANEMIA Stable from recent hospitalization HB >10 DM TYPE 2 Uncontrolled- A1c was 9.8 on 12/22/16 Reports fluctuating fasting blood sugar at home with hypo and hyper glycemia Takes long acting insulin- degludec 20 units HS at home Hold glimepiride and Januvia Appreciate pharmacy input and recommendation Will be discharged on Home dose of Insulin RIGHT KNEE PAIN R knee x-ray in November showed small to moderate effusion, mild-mod OA, chondrocalcinosis, osteochondral lesion medial femoral condyle likely old Consider ortho eval as outpatient DYSLIPIDEMIA Continue statin DVT PROPHYLAXIS On Coumadin CODE STATUS Full code per her preference on prior admission DISPOSITION Lives at home with sons Follows with Dr. Dominguez for primary care PT, OT, social service evals requested Likely discharge in a day or two Vital Signs: Date Time Temp Pulse Resp B/P Pulse Ox O2 Delivery O2 Flow Rate FiO2 01/24/17 08:00 36.6 60 20 170/71 93 01/24/17 05:39 60 161/65 01/24/17 04:13 36.8 60 16 164/68 91 Room Air 01/24/17 04:00 91 Room Air 01/24/17 00:00 Room Air 01/23/17 23:22 36.6 63 16 136/57 94 Room Air 01/23/17 20:10 59 173/59 01/23/17 20:00 93 Room Air 01/23/17 19:34 36.4 58 18 188/68 93 Room Air 01/23/17 16:00 Room Air 01/23/17 15:15 36.4 63 20 136/68 90 Room Air 01/23/17 12:05 Room Air Lab Results: Results Past 24 Hours Test 01/23/17 16:17 01/23/17 20:00 01/24/17 05:24 01/24/17 06:56 Range/Units Bedside Glucose 225 212 106 70-90 mg/dl Prothrombin Time 19.6 9.0-12.0 SECONDS Prothromb Time International Ratio 1.8 0.9-1.1 Sodium Level 137 136-145 mmol/L Potassium Level 3.4 3.5-5.1 mmol/L Chloride Level 98 98-107 mmol/L Carbon Dioxide Level 33 21-32 mmol/L Anion Gap 6.0 3-11 mmol/L Blood Urea Nitrogen 38 7-18 mg/dl Creatinine 2.20 0.60-1.20 mg/dl Est Creatinine Clear Calc Drug Dose 15.6 ml/min Estimated GFR () 22.3 Estimated GFR (Non- 19.2 BUN/Creatinine Ratio 17.3 10-20 Random Glucose 108 70-99 mg/dl Calcium Level 8.4 8.5-10.1 mg/dl Magnesium Level 1.8 1.8-2.4 mg/dl Test 01/24/17 10:58 Range/Units Bedside Glucose 230 70-90 mg/dl
--- NOTE | 2017-01-24 11:19 | Pharmacy Progress Note ---
Glycemic Control: Progress Nt Date of Service Jan 24, 2017. Scope Glycemic Pharmacist consulted by Taylor Mcfadden PA-C on 01/20/17 for glycemic control and to write orders per [facility] inpatient glycemic control protocol. Objective Accuchecks BSG (last 24hrs): Test 01/23/17 16:17 01/23/17 20:00 01/24/17 05:24 01/24/17 06:56 Bedside Glucose 225 mg/dl (70-90) 212 mg/dl (70-90) 106 mg/dl (70-90) Random Glucose 108 mg/dl (70-99) Test 01/24/17 10:58 Bedside Glucose 230 mg/dl (70-90) Laboratory Data (last 24hrs) Test 01/24/17 05:24 Anion Gap 6.0 mmol/L BUN/Creatinine Ratio 17.3 Blood Urea Nitrogen 38 mg/dl Creatinine 2.20 mg/dl Potassium Level 3.4 mmol/L Sodium Level 137 mmol/L HbA1c: Test 01/20/17 05:55 Hemoglobin A1c 9.6 % (4.5-5.6) H Recent Pertinent Medications Outpatient Anti-diabetic Regimen: Oral Agents: * Amaryl 4mg PO daily * Januvia 25mg PO QAM Basal insulin: * Tresiba [insulin degludec] 20 units SQ HS Risk Factors for Insulin Resistance: * Diet Risk Factors for Insulin Sensitivity: * GERMAINE/renal impairment * Edema --> erratic insulin absorption Assessment & Plan ASSESSMENT: 01/24/17 * Over the weekend I have continued to titrate insulin based on BSG trend * Yesterday Fasting BSG dipped <100 mg/dL so I decreased Lantus by 20% * I also tightened CF/CR due to prandial BSGs trending upwards * Today, Fasting BSG looks better ~106 mg/dL--> continue Lantus * Prandial BSGs still remain elevated, further tighten CF/CR and goal range PLAN FOR INPATIENT GLYCEMIC CONTROL: * Continue to hold outpatient oral diabetes medications * Continue Basal insulin with Lantus 10 units SQ HS * Tighten NovoLog per scale ACHS or Q6hrs while NPO * Goal Range: Low 110 mg/dL - High 150 mg/dL * Correction Factor: 25 mg/dL/unit * Nutritional / Prandial insulin per carb ratio of 1 unit per 8 grams CHO consumed RECOMMENDATIONS FOR DISCHARGE: * Patient is currently working with PCP on insulin dose titration. A1c is responding to outpatient antidiabetic regimen adjustments. * May consider discontinuing glimepiride due to risk of hypoglycemia (patient also on insulin, elderly, and h/o CKD) * Please note that the plan above was derived based on current level of insulin resistance and hospital stress. These recommendations are appropriate for inpatient admission only. Plan of care upon discharge will need to be reassessed to avoid potential outpatient hypo/hyperglycemia. Thank you.
[2017-01-24] MEDS: WARFARIN SOD 4 MG TAB PO SCH (16:43)
--- NOTE | 2017-01-24 17:36 | CARDIOLOGY PROGRESS NOTE ---
DATE: 01/24/2017 The patient was seen and examined. Chart, medications, and telemetry were reviewed. SUBJECTIVE: The patient feels slightly improved again this morning. Continues to have gradual diuresis. Leg edema is slightly less pronounced, though remains present. Denies fevers, chills or productive cough. OBJECTIVE: VITAL SIGNS: Heart rate is 60 and blood pressure is 170/71. NECK: Thin. There is no distinct jugular venous distention. LUNGS: Reveal few scattered crackles, basilar. CARDIOVASCULAR: Regular. There is no S3 gallop. ABDOMEN: Soft. EXTREMITIES: Reveal 2+ lower extremity edema. IMPRESSION: An 89-year-old female with complex history, admitted with acute on chronic decompensated diastolic heart failure. Underlying issues include paroxysmal atrial fibrillation, controlled in sinus rhythm; hypertension; moderate mitral stenosis and chronic renal insufficiency. The patient continues to demonstrate clinical improvement. RECOMMENDATIONS: We will increase hydralazine to 12.5 mg t.i.d., supplement potassium this morning, and switch IV Lasix to furosemide 60 mg p.o. every day. The patient will require close clinical followup and outpatient followup with congestive heart failure clinic in 1-2 weeks post-hospital discharge.
[2017-01-24] MEDS: INSULIN GLARGINE SOLOSTAR 100 UNITS/ML 3 ML PEN SC SCH (21:32)
[2017-01-24] MEDS: ATORVASTATIN 20 MG TAB PO SCH (21:33)
[2017-01-25 04:00] VITALS: O2SAT 95
[2017-01-25 04:04] VITALS: BP 172/68; PULSE 58; TEMP 36.8; O2SAT 95
[2017-01-25 05:52] VITALS: BP 155/72; PULSE 59
[2017-01-25] MEDS: METOPROLOL SUCC 25MG EXT REL TAB PO SCH (05:52)
[2017-01-25 06:37] LABS: BUN/CREATININE RATIO 18.7 (10-20); CALCIUM 8.5 mg/dl (8.5-10.1); CREATININE 2.2 mg/dl (0.60-1.20); POTASSIUM 3.6 mmol/L (3.5-5.1)
[2017-01-25 07:56] VITALS: BP 157/61; PULSE 61; TEMP 36.2; O2SAT 92
[2017-01-25] MEDS: AMIODARONE 200 MG TAB PO SCH (08:43)
[2017-01-25] MEDS: ISOSORBIDE MONONITRATE 60 MG TABCR PO SCH (08:43)
[2017-01-25] MEDS: ASPIRIN 81 MG ECTAB PO SCH (08:43)
[2017-01-25] MEDS: INSULIN ASPART 100 UNITS/ML 3 ML PEN SC SCH ×2 (08:47→12:38)
[2017-01-25] MEDS ORDERED: FUROSEMIDE 20 MG TAB PO SCH (09:00)
--- NOTE | 2017-01-25 10:03 | Pharmacy Progress Note ---
Glycemic Control: Progress Nt Date of Service Jan 25, 2017. Scope Glycemic Pharmacist consulted by ANTONIO Heard on 01/19 for glycemic control and to write orders per [facility] inpatient glycemic control protocol. Objective Accuchecks BSG (last 24hrs): Test 01/24/17 10:58 01/24/17 16:08 01/24/17 16:09 01/24/17 20:03 Bedside Glucose 230 mg/dl (70-90) 292 mg/dl (70-90) 291 mg/dl (70-90) 193 mg/dl (70-90) Test 01/25/17 05:15 01/25/17 06:37 Random Glucose 79 mg/dl (70-99) Bedside Glucose 88 mg/dl (70-90) Laboratory Data (last 24hrs) Test 01/25/17 05:15 Anion Gap 6.0 mmol/L BUN/Creatinine Ratio 18.7 Blood Urea Nitrogen 41 mg/dl Creatinine 2.20 mg/dl Potassium Level 3.6 mmol/L Sodium Level 135 mmol/L HbA1c: Test 01/20/17 05:55 Hemoglobin A1c 9.6 % (4.5-5.6) H Recent Pertinent Medications Outpatient Anti-diabetic Regimen: Oral Agents: * Amaryl 4mg PO daily * Januvia 25mg PO QAM Basal insulin: * Tresiba (insulin degludec) 20 units SQ HS The patient is currently receiving: * Basal insulin: Lantus 10 units every 24 hours * Correctional Insulin: Novolog Correction per scale ACHS Goal Range: Low 110 mg/dL - High 150 mg/dL Correction Factor: 25 mg/dL/unit * Prandial insulin: Per carb ratio of 1 unit per 8 grams CHO consumed * Oral Agents: None at this time Risk Factors for Insulin Resistance: * Diet: type 2 diabetes - consuming 30-70 gm CHO w/ each meal Risk Factors for Insulin Sensitivity: * GERMAINE/renal impairment * Edema --> erratic insulin absorption Assessment & Plan ASSESSMENT: From 01/24/17 note: * Over the weekend I have continued to titrate insulin based on BSG trend * Yesterday Fasting BSG dipped <100 mg/dL so I decreased Lantus by 20% * I also tightened CF/CR due to prandial BSGs trending upwards * Today, Fasting BSG looks better ~106 mg/dL--> continue Lantus * Prandial BSGs still remain elevated, further tighten CF/CR and goal range 01/25/17 * Ms. Ortega received 40 units of insulin yesterday with BSGs ranging from 79- 291 mg/dL * Her fasting is low again this AM but was fine yesterday after receiving the same basal dose * I would like to remove the HS correctional insulin before making further changes to the basal dose * She seems to be very sensitive to carb intake so I may consider tightening the CR further but will wait to see what the lunch BSG looks like since fasting was low today PLAN FOR INPATIENT GLYCEMIC CONTROL: * Continue to hold outpatient oral diabetes medications * Continue Basal insulin with Lantus 10 units SQ HS * Change NovoLog per scale to AC only - no HS coverage * Goal Range: Low 110 mg/dL - High 150 mg/dL * Correction Factor: 25 mg/dL/unit * Nutritional / Prandial insulin per carb ratio of 1 unit per 8 grams CHO consumed RECOMMENDATIONS FOR DISCHARGE: * Patient is currently working with PCP on insulin dose titration. A1c is responding to outpatient antidiabetic regimen adjustments. * May consider discontinuing glimepiride due to risk of hypoglycemia (patient also on insulin, elderly, and h/o CKD) Thank you.
--- NOTE | 2017-01-25 11:08 | Progress Note ---
Internal Med Progress Note Date of Service: Jan 25, 2017. Provider Documentation: SUBJECTIVE: The patient was seen and examined Feels a lot better today Getting Physical Therapy Discharge today OBJECTIVE: Vital Signs-as noted below Exam: General-No distress at rest Eyes-normal ENT-normal Neck-supple Lungs-Decreased breath sound bilaterally No crackles at the bases Heart-Regular,no murmur appreciated Abdomen-Benign,no masses,bowel sound present Extremities-Trace edema bilaterally -improved a lot Neuro-AAOx3 Lab data as noted below. ASSESSMENT & PLAN: ACUTE HYPOXIC RESPIRATORY FAILURE Secondary to Acute decompensated Diastolic heart failure Was hypoxic to 79% on RA in ER; improved on nasal cannula CXR- mild pulmonary edema, small bilateral pleural effusions, bibasilar opacities likely atelectasis vs. pneumonia Pro-BNP is 2700; initial troponin negative Given Lasix 40 mg IV in ER; will continue with 40 mg IV daily and pt is improving Appreciate Cardiology input ECHO:: Ejection Fraction = 65-70%. * Calcified mitral apparatus causing mitral stenosis. * There is moderate mitral stenosis. * There is mild to moderate mitral regurgitation. * There is mild tricuspid regurgitation. * Right ventricular systolic pressure is elevated at 50-60mmHg. * Aortic valve sclerosis mild, without significant aortic valvular stenosis. Trend serial cardiac enzymes-negative for any ACS Clinically much better Diuresed a lot .lost about >5 KGs since admission Denies any symptoms today Diuretics have been changed to oral Cardiac rehab PAROXYSMAL ATRIAL FIBRILLATION Currently in sinus bradycardia Continue amiodarone but the dose has been reduced Decrease Lopressor from 25 mg BID -> 12.5 mg BID On Coumadin; INR is therapeutic Continue Coumadin and monitor INR INR therapeutic since admission BILATERAL LEG EDEMA Secondary to Heart failure as mentioned earlier Persistent since hospitalization Sep 2016-Oct 2016 Hold amlodipine as it may be contributing Lasix dosing as noted above Leg edema is moderately improved Continue Lasix HYPERTENSION BP elevated to 150s-160s systolic in ER Hold amlodipine as may be contributing to LE edema Continue Lopressor at reduced dose for bradycardia Continue isosorbide May need small dose of Hydralazine to control BP BP remains on the higher side -expected to go down Reasonably controlled CKD STAGE IV Creat is 2.1, recent baseline approx 1.9-2.0 in Oct 2016 Monitor renal function while on IV Lasix Supplement Potassium as needed Remains stable at the baseline Creatinine is slightly up to 2.2 ANEMIA Stable from recent hospitalization HB >10 DM TYPE 2 Uncontrolled- A1c was 9.8 on 12/22/16 Reports fluctuating fasting blood sugar at home with hypo and hyper glycemia Takes long acting insulin- degludec 20 units HS at home Hold glimepiride and Januvia Appreciate pharmacy input and recommendation Will be discharged on Home dose of Insulin but no Oral medication RIGHT KNEE PAIN R knee x-ray in November showed small to moderate effusion, mild-mod OA, chondrocalcinosis, osteochondral lesion medial femoral condyle likely old Consider ortho eval as outpatient DYSLIPIDEMIA Continue statin DVT PROPHYLAXIS On Coumadin CODE STATUS Full code per her preference on prior admission DISPOSITION Lives at home with sons Follows with Dr. Dominguez for primary care PT, OT, social service evals requested Likely discharge today Vital Signs: Date Time Temp Pulse Resp B/P Pulse Ox O2 Delivery O2 Flow Rate FiO2 01/25/17 07:56 36.2 61 20 157/61 92 Room Air 01/25/17 05:52 59 155/72 01/25/17 04:04 36.8 58 172/68 95 Room Air 01/25/17 04:00 95 Room Air 01/25/17 00:00 Room Air 01/24/17 23:55 36.9 60 19 149/61 93 Room Air 01/24/17 20:00 Room Air 01/24/17 19:30 36.5 58 20 170/60 95 Room Air 01/24/17 16:15 Room Air 01/24/17 15:26 36.6 58 20 180/70 97 Room Air 01/24/17 12:05 Room Air 01/24/17 12:00 36.7 53 18 152/54 92 Lab Results: Results Past 24 Hours Test 01/24/17 16:08 01/24/17 16:09 01/24/17 20:03 01/25/17 05:15 Range/Units Bedside Glucose 292 291 193 70-90 mg/dl Sodium Level 135 136-145 mmol/L Potassium Level 3.6 3.5-5.1 mmol/L Chloride Level 97 98-107 mmol/L Carbon Dioxide Level 32 21-32 mmol/L Anion Gap 6.0 3-11 mmol/L Blood Urea Nitrogen 41 7-18 mg/dl Creatinine 2.20 0.60-1.20 mg/dl Est Creatinine Clear Calc Drug Dose 15.6 ml/min Estimated GFR () 22.3 Estimated GFR (Non- 19.2 BUN/Creatinine Ratio 18.7 10-20 Random Glucose 79 70-99 mg/dl Calcium Level 8.5 8.5-10.1 mg/dl Test 01/25/17 06:37 Range/Units Bedside Glucose 88 70-90 mg/dl
[2017-01-25 12:30] VITALS: BP 126/70; PULSE 58; TEMP 36.7; O2SAT 93
--- NOTE | 2017-01-25 13:37 | PROGRESS NOTE ---
DATE: 01/25/2017 The patient seen and examined. Chart, medications, telemetry reviewed. SUBJECTIVE: The patient feels well this morning. Denies any complaints. Leg edema is diminished. OBJECTIVE: VITAL SIGNS: Heart rate is 61, blood pressure is 157/61. NECK: Thin with patient examined upright. LUNGS: Clear with minimal crackles at the left base. CARDIOVASCULAR: Regular. There is no S3 gallop. ABDOMEN: Soft, nontender. EXTREMITIES: Without cyanosis or clubbing. There is 1-2+ lower extremity edema, but improved. LABORATORY DATA: Sodium is 135, potassium is 3.6, chloride is 97, bicarbonate is 32, BUN is 41, creatinine is 2.2. IMPRESSION: An 89-year-old female with admission with acute diastolic heart failure, history of paroxysmal atrial fibrillation, controlled in sinus; hypertension and moderate mitral stenosis. The patient appears clinically stable, would continue current dosing of hydralazine at 12.5 mg twice per day and continue furosemide at 60 mg per day. Would make arrangements to see cardiology clinic Dr. Shay or associates in the next 2 weeks' time.
[2017-01-25] MEDS ORDERED: APR25 PO (14:14)
--- NOTE | 2017-01-25 14:17 | Discharge Instructions ---
Discharge Instructions Date of Service Jan 25, 2017. Admission Reason for Admission: Chf Exacerbation Discharge Discharge Diagnosis / Problem: Diastolic Heart failure Discharge Goals Goal(s): Prevent Disease Progression Activity Recommendations Activity Limitations: resume your previous activity . Instructions / Follow-Up Instructions / Follow-Up Dr Dennison 01/26/17 at 12:45PM.Keep appointment with Business Administration Instructor and Coumadin clinic Current Hospital Diet Patient's current hospital diet: AHA Diet (Heart Healthy), Diabetes Type 2 Diet , Low Sodium Diet (2gm Na) Discharge Diet Recommended Diet: AHA Diet (Heart Healthy), Low Sodium Diet (2gm Na), Diabetes Type 2 Diet Fluid Restriction: 1500 ml (6 cups) Pending Studies Studies pending at discharge: no Laboratory Results Hemoglobin A1c Test 01/20/17 05:55 Range/Units Estimated Average Glucose 229 mg/dl Hemoglobin A1c 9.6 H 4.5-5.6 % Medical Emergencies . Who to Call and When: Medical Emergencies: If at any time you feel your situation is an emergency, please call 911 immediately. . Non-Emergent Contact Non-Emergency issues call your: Primary Care Provider . 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 "Provider Documentation" section prepared by Parker Howard. VTE Core Measure Inpt VTE Proph given/why not?: Warfarin (Coumadin)
[2017-01-25 14:32] VITALS: BP 126/70; PULSE 58; TEMP 36.7; O2SAT 93
[2017-01-25] MEDS: WARFARIN SOD 4 MG TAB PO SCH (16:00)
--- NOTE | 2017-01-26 12:31 | Discharge Summary ---
Discharge Summary Date of Service Jan 26, 2017. Discharge Summary Admission Date: Jan 19, 2017 at 16:24 Discharge Date: Jan 25, 2017 Discharge Disposition: Home with services Principal Diagnosis: Acute Diastolic heart failure Secondary Diagnoses/Problems: Please see H&P and Hospital Progress note Consultations: Cardiology Medication Reconciliation New Medications: Hydralazine Hcl (Apresoline) 25 Mg Tab 12.5 MG PO TID for 30 Days, #45 TAB Continued Medications: Acetaminophen (Tylenol) 325 Mg Tab 650 MG PO Q4H PRN for Pain or Fever, #30 TAB Amiodarone Hcl (Cordarone) 200 Mg Tab 200 MG PO DAILY, TAB Aspirin (Aspirin Ec) 81 Mg Tab 81 MG PO DAILY Atorvastatin (Lipitor) 40 Mg Tab 40 MG PO HS, TAB Furosemide (Furosemide) 40 Mg Tab 60 MG PO DAILY Insulin Degludec (Tresiba Flextouch) 100 Unit/Ml Inj 20 UNITS SC HS Isosorbide Mononitrate Ext Rel (Imdur Ext Rel) 30 Mg Tabcr 60 MG PO QAM, TAB Metoprolol Succ (Toprol Xl) (Toprol-Xl) 25 Mg Tabcr 25 MG PO DAILY, #30 TAB Polyethylene (Miralax) 17 Gm Pow 17 GM PO DAILY PRN for Constipation, #30 Warfarin Sod (Coumadin) 4 Mg Tab 1 TAB PO 5XWK everyday but Sat & Wed Warfarin Sod (Coumadin) 2 Mg Tab 1 TAB PO 2XWK Sat & Wed [vitamin liquid] () Unknown Strength Unknown Dose Discontinued Medications: Amlodipine (Norvasc) 5 Mg Tab 5 MG PO HS, TAB Glimepiride (Amaryl) 4 Mg Tab 4 MG PO DAILY, TAB Sitagliptin (Januvia) 25 Mg Tab 25 MG PO QAM, TAB Admission Information HPI (per Admitting provider): This is an 89 year old female with PMH of CKD IV, HTN, PAF on Coumadin, history of systolic CHF, DM type 2, and other problems listed below who presents to the ED for dyspnea on exertion. Patient follows with Dr. Shay for cardiology. Patient states for past 4 days she is dyspneic when leaning over to tie her shoes and climbing up the stairs with her cane. No SOB at rest. She reports associated "hacking" dry cough without sputum production. She reports bilateral LE edema since her hospitalization in Sep 2016-Oct 19 for acute hypoxic respiratory failure secondary to influenza, possible pneumonia, pulmonary edema , rapid atrial fibrillation. Echo at that time showed normal LV systolic function. She is not on home oxygen. Has chronic R knee pain which is worse since mechanical fall in November at which time had x-ray in ED showing small- mod effusion and OA. Had trace blood in stool when constipated/ straining which resolved with Miralax and had no further bleeding. She denies fever, chills, rhinorrhea, sore throat, ear ache, sinus pressure, MACKENZIE, dizziness, palpitations, chest pain, SOB at rest, orthopnea, increased abdominal girth, abdominal pain, N /V/D, melena, dysuria, urgency, frequency, calf pain, gum bleeding, epistaxis. Does not track daily weight. Admits to dietary indiscretion. Has been compliant with Lasix. Fasting blood sugars fluctuate at home. Past Medical/Surgical History Medical Problems: (1) Breast cancer Permanent Comment: Infiltrating ductal carcinoma the left breast, T1b N0M0 stage I Sabrina Septer positive, progesterone receptor positive, HER-2/george negative Status post lumpectomy and sentinel lymph node biopsy Status post radiation therapy completed 05/25/2003 Close observation and no hormonal therapy Abnormal right breast mammogram 12/31/2014 decision for 6 month follow-up Abnormal mammogram Status post ultrasound guided biopsy September 06 2015 revealing invasive ductal carcinoma grade 1 Estrogen receptor positive, progesterone receptor positive, HER-2/george negative Status post lumpectomy and sentinel lymph node biopsy 11/06/2015 [id number] M0 G1 Declined Oncotype DX and chemotherapy Status: Chronic (2) Cataract Status: Chronic (3) CKD (chronic kidney disease), stage IV Status: Chronic (4) Diastolic CHF Status: Chronic (5) DM type 2 (diabetes mellitus, type 2) Status: Chronic (6) Dyslipidemia Status: Chronic (7) History of bladder cancer Status: Chronic (8) History of melanoma Status: Chronic (9) Hypertension Status: Chronic (10) Paroxysmal atrial fibrillation Status: Chronic (11) S/p excision of bladder tumor Status: Chronic Surgical Problems: (1) H/O cystoscopy Status: Chronic (2) H/O hernia repair Status: Chronic (3) H/O lymph node biopsy Status: Chronic (4) H/O partial mastectomy Status: Chronic (5) S/P lumbar laminectomy Status: Chronic (6) S/P right knee arthroscopy Status: Chronic (7) S/P BR[place]NN-BSO Status: Chronic (8) Status post Mohs surgery Status: Chronic Family History Cardiac disorder FATHER MOTHER Social History Smoking Status: Never Smoker Alcohol Use: none Drug Use: none Marital Status: Housing status: lives with family (with 2 of her sons. daughter in law in [place] assists with her medications. ) Occupational Status: retired Immunizations History of Tetanus Vaccine?: A COUPLE YEARS AGO History of Pneumococcal: Unknown History of Hepatitis B Vaccine: No Multi-Drug Resistant Organisms History of MDRO: No Allergies Coded Allergies: Anastrozole (Verified Allergy, Severe, ANAPHYLAXIS, 01/19/17) edema face/tongue/lips Pioglitazone (Unverified Allergy, Intermediate, HIVES, 01/19/17) Metformin (Verified Adverse Reaction, Intermediate, DIARRHEA, 01/19/17) Home Medications Scheduled Amiodarone Hcl (Cordarone), 200 MG PO BID Amlodipine (Norvasc), 5 MG PO HS Aspirin (Aspirin Ec), 81 MG PO DAILY Atorvastatin (Lipitor), 40 MG PO HS Furosemide (Furosemide), 40 MG PO DAILY Glimepiride (Amaryl), 4 MG PO DAILY Insulin Degludec (Tresiba Flextouch), 20 UNITS SC HS Isosorbide Mononitrate Ext Rel (Imdur Ext Rel), 30 MG PO QAM Metoprolol Succ (Toprol Xl) (Toprol-Xl), 25 MG PO BID Sitagliptin (Januvia), 25 MG PO QAM Warfarin Sod (Coumadin), 1 TAB PO 5XWK Warfarin Sod (Coumadin), 1 TAB PO 2XWK Scheduled PRN Acetaminophen (Tylenol), 650 MG PO Q4H PRN for Pain or Fever Polyethylene (Miralax), 17 GM PO DAILY PRN for Constipation Miscellaneous Medications [vitamin liquid], Unknown Dose Review of Systems Ten point ROS performed with pertinent positives and negatives noted in HPI. Physical Ex - H&P Physical Exam Vital Signs Date Time Temp Pulse Resp B/P Pulse Ox O2 Delivery O2 Flow Rate FiO2 01/19/17 16:20 79 Room Air 01/19/17 16:20 95 Nasal Cannula 3.0 01/19/17 15:39 55 20 156/64 96 Nasal Cannula 2.0 01/19/17 14:11 55 20 169/68 94 Nasal Cannula 2.0 01/19/17 14:09 58 01/19/17 13:49 93 Nasal Cannula 2.0 01/19/17 13:49 93 Nasal Cannula 2.0 01/19/17 13:15 36.8 54 18 159/56 88 Room Air 01/19/17 13:15 88 Room Air General Appearance: WD/WN, no apparent distress, + pertinent finding (pleasant alert elderly female, not in distress) Head: normocephalic, atraumatic Eyes: normal inspection, PERRL, sclerae normal ENT: hearing grossly normal Neck: supple, trachea midline Respiratory/Chest: normal breath sounds, no respiratory distress, no accessory muscle use, + crackles (moderate crackles bilateral bases), + pertinent finding (saturating well on supplemental O2) Cardiovascular: regular rate, rhythm, no murmur, normal peripheral pulses, + JVD Abdomen/GI: normal bowel sounds, non tender, soft Extremities/Musculoskelatal: no calf tenderness, + pertinent finding (3+ pitting edema bilateral lower extremities extending just above the knees. right anterior knee swelling and tenderness to palpation. no pain with passive ROM of right knee. ) Neurologic/Psych: alert, normal mood/affect, oriented x 3, + pertinent finding (grossly nonfocal, motor 5/5 all extremities) Skin: normal color, warm/dry Diagnostics - H&P Diagnostics Laboratory Results Results Past 24 Hours Test 01/19/17 14:15 Range/Units White Blood Count 9.75 4.8-10.8 K/uL Red Blood Count 3.32 4.2-5.4 M/uL Hemoglobin 10.5 12.0-16.0 g/dL Hematocrit 30.7 37-47 % Mean Corpuscular Volume 92.5 80-100 fL Mean Corpuscular Hemoglobin 31.6 25-34 pg Mean Corpuscular Hemoglobin Concent 34.2 32-36 g/dl Platelet Count 219 130-400 K/uL Mean Platelet Volume 9.8 7.4-10.4 fL Neutrophils (%) (Auto) 81.9 % Lymphocytes (%) (Auto) 5.8 % Monocytes (%) (Auto) 9.4 % Eosinophils (%) (Auto) 2.7 % Basophils (%) (Auto) 0.1 % Neutrophils # (Auto) 7.98 1.4-6.5 K/uL Lymphocytes # (Auto) 0.57 1.2-3.4 K/uL Monocytes # (Auto) 0.92 0.11-0.59 K/uL Eosinophils # (Auto) 0.26 0-0.5 K/uL Basophils # (Auto) 0.01 0-0.2 K/uL RDW Standard Deviation 44.9 36.4-46.3 fL RDW Coefficient of Variation 13.4 11.5-14.5 % Immature Granulocyte % (Auto) 0.1 % Immature Granulocyte # (Auto) 0.01 0.00-0.02 K/uL Prothrombin Time 24.7 9.0-12.0 SECONDS Prothromb Time International Ratio 2.2 0.9-1.1 Sodium Level 137 136-145 mmol/L Potassium Level 4.2 3.5-5.1 mmol/L Chloride Level 102 98-107 mmol/L Carbon Dioxide Level 28 21-32 mmol/L Anion Gap 7.0 3-11 mmol/L Blood Urea Nitrogen 41 7-18 mg/dl Creatinine 2.10 0.60-1.20 mg/dl Estimated GFR () 23.6 Estimated GFR (Non- 20.4 BUN/Creatinine Ratio 19.4 10-20 Random Glucose 311 70-99 mg/dl Calcium Level 8.9 8.5-10.1 mg/dl Total Creatine Kinase 103 26-192 U/L Creatine Kinase MB 2.8 0.5-3.6 ng/ml Creatine Kinase MB Ratio 2.7 0-3.0 Troponin I < 0.015 0-0.045 ng/ml Pro-B-Type Natriuretic Peptide 2703 0-1800 pg/ml Beta-Hydroxybutyric Acid 0.92 0.2-2.81 mg/dL Diagnostic Radiology CHEST ONE VIEW PORTABLE CLINICAL HISTORY: Cough. Shortness of breath. COMPARISON STUDY: Chest radiograph October 17, 2016. FINDINGS: There is no pneumothorax. Small bilateral pleural effusions persist. There are bibasilar opacities with left lower lobe volume loss. Right basilar opacity is increased since prior exam. Pulmonary edema has increased since prior exam. IMPRESSION: 1. Interstitial thickening consistent with mild pulmonary edema. 2. Small bilateral pleural effusions with associated bibasilar opacities which statistically reflect atelectasis although consolidation could appear similar. EKG sinus bradycardia with 1st degree AV block, RBBB, LAFB, bifascicular block, LVH , poor R wave progression, when compared to prior EKG premature supraventricular complexes are no longer present Impression - H&P Impression Assessment and Plan ACUTE HYPOXIC RESPIRATORY FAILURE Was hypoxic to 79% on RA in ER; improved on nasal cannula Likely due to acute diastolic CHF possibly due to dietary indiscretion; prior echo 09/2016- EF 60-65% CXR- mild pulmonary edema, small bilateral pleural effusions, bibasilar opacities likely atelectasis vs. pneumonia Clinically pneumonia is unlikely- no fever, no leukocytosis, no sputum production Pro-BNP is 2700; initial troponin negative Home dose of Lasix is 40 mg PO daily Given Lasix 40 mg IV in ER; will continue with 40 mg IV daily Strict I/O's; standing weight today and daily Check echo Trend serial cardiac enzymes Consult cardiology Continue supplemental O2 per protocol Incentive spirometry for atelectasis BILATERAL LE EDEMA Persistent since hospitalization Sep 2016-Oct 2016 Hold amlodipine as it may be contributing Lasix dosing as noted above PAROXYSMAL ATRIAL FIBRILLATION Currently in sinus bradycardia Continue amiodarone Decrease Lopressor from 25 mg BID -> 12.5 mg BID On Coumadin; INR is therapeutic Continue Coumadin and monitor INR HYPERTENSION BP elevated to 150s-160s systolic in ER Hold amlodipine as may be contributing to LE edema Continue Lopressor at reduced dose for bradycardia Continue isosorbide CKD STAGE IV Creat is 2.1, recent baseline approx 1.9-2.0 in Oct 2016 Monitor renal function while on IV Lasix ANEMIA Stable from recent hospitalization Monitor CBC DM TYPE 2 Uncontrolled- A1c was 9.8 on 12/22/16 Reports fluctuating fasting blood sugar at home with hypo and hyper glycemia Takes long acting insulin- degludec 20 units HS at home Hold glimepiride and Januvia Glimepiride likely contributing to hypoglycemia especially in this elderly patient Starting Lantus weight based dosing and insulin sliding scale coverage Consult pharmacy for glycemic control RIGHT KNEE PAIN R knee x-ray in November showed small to moderate effusion, mild-mod OA, chondrocalcinosis, osteochondral lesion medial femoral condyle likely old Consider ortho eval as outpatient DYSLIPIDEMIA Continue statin DVT PROPHYLAXIS On Coumadin CODE STATUS Full code per her preference on prior admission DISPOSITION Lives at home with sons Follows with Dr. Dominguez for primary care PT, OT, social service evals requested Patient seen in collaboration with Dr. Killian. Please see her addendum. (addendum in separate note) Level of Care Telemetry Advanced Directives Existing Living Will: Yes Existing Power of Certified Meeting Professional: Yes Resuscitation Status FULL RESUSCITATION VTE Prophylaxis VTE Risk Assessment Done? Y/N: Yes Risk Level: Moderate Given or contraindicated: Warfarin (Coumadin) Physical Exam (per Admitting): General Appearance: WD/WN, no apparent distress, + pertinent finding ( pleasant alert elderly female, not in distress) Head: normocephalic, atraumatic Eyes: normal inspection, PERRL, sclerae normal ENT: hearing grossly normal Neck: supple, trachea midline Respiratory/Chest: normal breath sounds, no respiratory distress, no accessory muscle use, + crackles (moderate crackles bilateral bases), + pertinent finding (saturating well on supplemental O2) Cardiovascular: regular rate, rhythm, no murmur, normal peripheral pulses, + JVD Abdomen/GI: normal bowel sounds, non tender, soft Extremities/Musculoskelatal: no calf tenderness, + pertinent finding (3+ pitting edema bilateral lower extremities extending just above the knees. right anterior knee swelling and tenderness to palpation. no pain with passive ROM of right knee. ) Neurologic/Psych: alert, normal mood/affect, oriented x 3, + pertinent finding (grossly nonfocal, motor 5/5 all extremities) Skin: normal color, warm/dry Hospital Course ACUTE HYPOXIC RESPIRATORY FAILURE Secondary to Acute decompensated Diastolic heart failure Was hypoxic to 79% on RA in ER; improved on nasal cannula CXR- mild pulmonary edema, small bilateral pleural effusions, bibasilar opacities likely atelectasis vs. pneumonia Pro-BNP is 2700; initial troponin negative Given Lasix 40 mg IV in ER; will continue with 40 mg IV daily and pt is improving Appreciate Cardiology input ECHO:: Ejection Fraction = 65-70%. * Calcified mitral apparatus causing mitral stenosis. * There is moderate mitral stenosis. * There is mild to moderate mitral regurgitation. * There is mild tricuspid regurgitation. * Right ventricular systolic pressure is elevated at 50-60mmHg. * Aortic valve sclerosis mild, without significant aortic valvular stenosis. Trend serial cardiac enzymes-negative for any ACS Clinically much better Diuresed a lot .lost about >5 KGs since admission Denies any symptoms today Diuretics have been changed to oral Cardiac rehab PAROXYSMAL ATRIAL FIBRILLATION Currently in sinus bradycardia Continue amiodarone but the dose has been reduced Decrease Lopressor from 25 mg BID -> 12.5 mg BID On Coumadin; INR is therapeutic Continue Coumadin and monitor INR INR therapeutic since admission BILATERAL LEG EDEMA Secondary to Heart failure as mentioned earlier Persistent since hospitalization Sep 2016-Oct 2016 Hold amlodipine as it may be contributing Lasix dosing as noted above Leg edema is moderately improved Continue Lasix HYPERTENSION BP elevated to 150s-160s systolic in ER Hold amlodipine as may be contributing to LE edema Continue Lopressor at reduced dose for bradycardia Continue isosorbide May need small dose of Hydralazine to control BP BP remains on the higher side -expected to go down Reasonably controlled CKD STAGE IV Creat is 2.1, recent baseline approx 1.9-2.0 in Oct 2016 Monitor renal function while on IV Lasix Supplement Potassium as needed Remains stable at the baseline Creatinine is slightly up to 2.2 ANEMIA Stable from recent hospitalization HB >10 DM TYPE 2 Uncontrolled- A1c was 9.8 on 12/22/16 Reports fluctuating fasting blood sugar at home with hypo and hyper glycemia Takes long acting insulin- degludec 20 units HS at home Hold glimepiride and Januvia Appreciate pharmacy input and recommendation Will be discharged on Home dose of Insulin but no Oral medication RIGHT KNEE PAIN R knee x-ray in November showed small to moderate effusion, mild-mod OA, chondrocalcinosis, osteochondral lesion medial femoral condyle likely old Consider ortho eval as outpatient DYSLIPIDEMIA Continue statin DVT PROPHYLAXIS On Coumadin CODE STATUS Full code per her preference on prior admission DISPOSITION Lives at home with sons Follows with Dr. Dominguez for primary care PT, OT, social service evals requested Likely discharge today 35 minutesTotal time spent on discharge = This includes examination of the patient, discharge planning, medication reconciliation, and communication with other providers. Discharge Instructions Date of Service Jan 25, 2017. Admission Reason for Admission: Chf Exacerbation Discharge Discharge Diagnosis / Problem: Diastolic Heart failure Discharge Goals Goal(s): Prevent Disease Progression Activity Recommendations Activity Limitations: resume your previous activity . Instructions / Follow-Up Instructions / Follow-Up Dr Dennison 01/26/17 at 12:45PM.Keep appointment with [facility] Current Hospital Diet Patient's current hospital diet: AHA Diet (Heart Healthy), Diabetes Type 2 Diet , Low Sodium Diet (2gm Na) Discharge Diet Recommended Diet: AHA Diet (Heart Healthy), Low Sodium Diet (2gm Na), Diabetes Type 2 Diet Fluid Restriction: 1500 ml (6 cups) Pending Studies Studies pending at discharge: no Laboratory Results Hemoglobin A1c Test 01/20/17 05:55 Range/Units Estimated Average Glucose 229 mg/dl Hemoglobin A1c 9.6 H 4.5-5.6 % Medical Emergencies . Who to Call and When: Medical Emergencies: If at any time you feel your situation is an emergency, please call 911 immediately. . Non-Emergent Contact Non-Emergency issues call your: Primary Care Provider . 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 "Provider Documentation" section prepared by Parker Howard. VTE Core Measure Inpt VTE Proph given/why not?: Warfarin (Coumadin) <Electronically signed by Parker Howard M.D.> Signed: 01/25/17 [id number] Additional Copies To Adam Dominguez D.O.
[2017-03-03] MEDS ORDERED: INSDGIPEN SC (17:33)
[2017-03-03] MEDS ORDERED: APR25 PO (17:33)
[2017-06-28] MEDS ORDERED: TPRSR25 PO (14:32)
[2017-06-28] MEDS ORDERED: APR50 PO (14:32)
[2017-06-28] MEDS ORDERED: INSDGIPEN SC (14:32)
[2017-08-09] MEDS ORDERED: HYDR-4717 PO (10:26)
[2017-08-09] MEDS ORDERED: FRS/40 PO (10:26)
[2017-08-09] MEDS ORDERED: NVLG SC (10:26)
[2017-08-09] MEDS ORDERED: FERR325T5 PO (10:26)
[2017-08-09] MEDS ORDERED: ISM20 PO (10:26)
[2017-08-09] MEDS ORDERED: INSU1INJ33 SC (10:26)
[2017-08-09] MEDS ORDERED: POTASSIUM PO (10:26)
[2017-08-09] MEDS ORDERED: LEVO50TA6 PO (10:26)
[2017-08-09] MEDS ORDERED: METO25TA3 PO (10:35)
== END 2017-01-25 16:20 | disposition home health service (06) | DRG 291 ==
LOC: ENRESERVDT → ENRESERVTM → C.EDB 13:13 → C.2T 16:24
PROVIDERS: ADMIT Hospitalist; ATTEND Internal Medicine
DX: I13.0 Hypertensive heart and chronic kidney disease with heart failure and stage 1 through stage 4 chronic kidney disease, or unspecified chronic kidney disease (principal); I50.31 Acute diastolic (congestive) heart failure; N18.4 Chronic kidney disease, stage 4 (severe); I45.2 Bifascicular block; J96.01 Acute respiratory failure with hypoxia; J98.11 Atelectasis; D64.9 Anemia, unspecified; I48.0 Paroxysmal atrial fibrillation; I44.0 Atrioventricular block, first degree; E11.21 Type 2 diabetes mellitus with diabetic nephropathy; E78.5 Hyperlipidemia, unspecified; E86.0 Dehydration; I27.2 Other secondary pulmonary hypertension; I08.1 Rheumatic disorders of both mitral and tricuspid valves; Z85.3 Personal history of malignant neoplasm of breast; Z85.820 Personal history of malignant melanoma of skin; Z79.01 Long term (current) use of anticoagulants; H26.9 Unspecified cataract

== ENCOUNTER → 2017-02-05 | Outpatient (CLI) | payer OTHER, BC ==
[~2017-02-05] MED LIST changes: -AMLO-110 PO; +APR25 PO; +APR50 PO; +CMD4 PO; +FERR325T5 PO; +FRS/40 PO; -GLIM4TAB PO; +HYDR-4717 PO; -INSDGI SC; +INSDGIPEN SC; +INSU1INJ33 SC; +ISM20 PO; +ISOS30TA3 PO; +LEVO50TA6 PO; +LPT/40 PO; +LSX40 PO; +NVLG SC; +NVLG SQ; +NVLGI/PEN SQ; +POTASSIUM PO; +SIMV40TA2 PO; -SITA100T3 PO; -SITA25TA PO; +TCMD2 PO; +TPRSR25 PO; +VITAMIN; -WARF3TAB6 PO; -WARF5TAB7 PO; +potassium chloride PO
[2017-02-05 16:57] LABS: HEMATOCRIT 31.7 % (37-47); MEAN CELL VOLUME 94.9 fL (80-100); MEAN CORPUSCULAR HEMOGLOBIN 31.1 pg (25-34); MEAN CORPUSCULAR HGB CONC 32.8 g/dl (32-36); MEAN PLATELET VOLUME 10.3 fL (7.4-10.4); PLATELET COUNT 259 K/uL (130-400); RED BLOOD COUNT 3.34 M/uL (4.2-5.4); WHITE BLOOD COUNT 9.05 K/uL (4.8-10.8)
[2017-02-05 17:02] LABS: URINE APPEARANCE CLEAR (CLEAR); URINE BILIRUBIN NEG (NEG); URINE COLOR YELLOW; URINE NITRITE NEG (NEG); URINE SPECIFIC GRAVITY 1.012 (1.000-1.030); UROBILINOGEN NEG (NEG)
[2017-02-05 17:06] LABS: MANUAL MICROSCOPIC REQUIRED? NO; REVIEW REQ? NO
[2017-02-05 17:09] LABS: BLOOD UREA NITROGEN 49 mg/dl (7-18); BUN/CREATININE RATIO 19.6 (10-20); CALCIUM 8.6 mg/dl (8.5-10.1); CARBON DIOXIDE 32 mmol/L (21-32); CHLORIDE 101 mmol/L (98-107); GLUCOSE 283 mg/dl (70-99); PHOSPHORUS 3.1 mg/dl (2.5-4.9); POTASSIUM 3.3 mmol/L (3.5-5.1); SODIUM 140 mmol/L (136-145)
[2017-02-05 17:24] LABS: URINE PROTIEN/CREAT RATIO 0.6 (0-0.2); URINE TOTAL PROTEIN 37.1 mg/dl (0-11.9)
== END | disposition home or self-care (01) ==
LOC: C.LAB1850 14:54
PROVIDERS: ATTEND Internal Medicine Nephrology
DX: I12.9 Hypertensive chronic kidney disease with stage 1 through stage 4 chronic kidney disease, or unspecified chronic kidney disease (principal); N18.3 Chronic kidney disease, stage 3 (moderate); R80.9 Proteinuria, unspecified; E55.9 Vitamin D deficiency, unspecified

== ENCOUNTER 2017-02-28 12:55 | Inpatient (IN) | payer OTHER, BC ==
[~2017-02-28] VITALS: Ht 165.1 cm; Wt 58.3 kg
[~2017-02-28 12:55] MED LIST changes: -APR50 PO; -FERR325T5 PO; -FRS/40 PO; -HYDR-4717 PO; -INSDGIPEN SC; -ISM20 PO; -ISOS30TA3 PO; -LEVO50TA6 PO; -LPT/40 PO; -NVLG SC; -NVLG SQ; -NVLGI/PEN SQ; -POTASSIUM PO; -SIMV40TA2 PO; -TPRSR25 PO; -potassium chloride PO
[2017-02-28 13:41] LABS: BASO % 0.4 %; BASO ABS # 0.04 K/uL (0-0.2); COMPLETE YES; EOS % 4.1 %; HEMATOCRIT 35.2 % (37-47); IG% 0.2 %; LYMPH % 9.7 %; LYMPH ABS # 0.95 K/uL (1.2-3.4); MEAN CELL VOLUME 92.9 fL (80-100); MEAN CORPUSCULAR HEMOGLOBIN 30.9 pg (25-34); MEAN CORPUSCULAR HGB CONC 33.2 g/dl (32-36); MEAN PLATELET VOLUME 9.7 fL (7.4-10.4); MONO % 8.1 %; NEUT % 77.5 %; PLATELET COUNT 246 K/uL (130-400); RED BLOOD COUNT 3.79 M/uL (4.2-5.4); WHITE BLOOD COUNT 9.83 K/uL (4.8-10.8)
[2017-02-28 13:58] LABS: BUN/CREATININE RATIO 20.1 (10-20); CALCIUM 8.7 mg/dl (8.5-10.1); CREATININE 2.1 mg/dl (0.60-1.20); POTASSIUM 2.9 mmol/L (3.5-5.1)
[2017-02-28 14:02] LABS: CKMB/CK RATIO 2.7 (0-3.0)
[2017-02-28 14:07] LABS: INR 1.7 (0.9-1.1); PARTIAL THROMBOPLASTIN RATIO 1.2; PROTHROMBIN TIME (PATIENT) 18.5 SECONDS (9.0-12.0)
--- NOTE | 2017-02-28 14:07 | DIAGNOSTIC IMAGING REPORT ---
CT OF THE HEAD WITHOUT CONTRAST CLINICAL HISTORY: Stroke. Sudden onset right-sided weakness and facial droop. Speech difficulty. COMPARISON STUDY: No previous studies for comparison. CT DOSE: 537.48 mGy.cm TECHNIQUE: Helical axial images of the head were obtained without IV contrast. Automated exposure control was utilized for the study. FINDINGS: No acute intracranial hemorrhage, midline shift or mass effect is present. Mild ventricular dilatation is likely due to central atrophy. The basilar cisterns are patent. There are no extra axial collections. There is equivocal loss of campo-white differentiation within the left insular cortex. Extensive white matter hypodensity suggests small vessel disease. There is no calvarial fracture. Visualized portions of the mastoid air cells and sinuses are clear. IMPRESSION: 1. No acute intracranial hemorrhage or mass effect. 2. Possible loss of campo-white differentiation within the left insular cortex. This may be artifactual although an acute infarct could have this appearance. Electronically signed by: Mark Olmos M.D. 02/28/2017 2:06 PM Dictated Date/Time: 02/28/2017 2:01 PM
[2017-02-28] MEDS ORDERED: NVLGI/PEN SQ (14:11)
[2017-02-28] MEDS ORDERED: SIMV40TA2 PO (14:11)
[2017-02-28] MEDS ORDERED: ASPIRIN 81 MG CHEW PO STA (15:43)
[2017-02-28] MEDS ORDERED: POTASSIUM CHLORIDE 10 MEQ TABCR PO STA (15:43)
[2017-02-28] MEDS ORDERED: POTASSIUM CHLORIDE 20 MEQ/15 ML UDC PO STA (16:08)
[2017-02-28] MEDS ORDERED: ACETAMINOPHEN 325 MG TAB PO PRN (17:00)
[2017-02-28] MEDS ORDERED: GLUCAGON FOR INJ 1 MG VIAL SQ PRN (17:00)
[2017-02-28] MEDS ORDERED: POLYETHYLENE (MIRALAX) 17 GM PACK PO PRN (17:00)
[2017-02-28] MEDS ORDERED: GLUCOSE 40% GEL 15 GM TUBE PO PRN (17:00)
[2017-02-28] MEDS ORDERED: DEXTROSE 50% 50 ML SYR IV PRN (17:00)
[2017-02-28] MEDS ORDERED: ONDANSETRON INJ 2 MG/ML 2 ML VIAL IV PRN (17:00)
[2017-02-28] MEDS ORDERED: PHARMACIST DISCHARGE MED REC CONSULT PRN (17:00)
[2017-02-28] MEDS ORDERED: GLUCOSE 10 TABS/TUBE PO PRN (17:00)
[2017-02-28] MEDS ORDERED: LPT/40 PO (17:03)
[2017-02-28] MEDS ORDERED: PHARMACY GLYCEMIC MGMT CONSULT SCH (17:08)
[2017-02-28 17:15] VITALS: O2SAT 94; BMI 22.7
--- NOTE | 2017-02-28 17:32 | EMERGENCY ROOM VISIT NOTE ---
History Report prepared by Elijah: Corinna Rich Under the Supervision of: Dr. Abdelrahman Guzmán M.D. First contact with patient: 13:00 Chief Complaint: STROKE SYMPTOMS Stated Complaint: RT SIDED WEAKNESS History of Present Illness The patient is a 89 year old female who presents to the Emergency Room with complaints of an episode of a possible stroke occurring an hour ago. Her son states that they went to the [employer] for mother's day lunch. He states that she walked in with her walker fine and sat down. He states that all of a sudden the patient's mouth dropped open, she became sweaty, had a faint pulse, felt clammy, and wouldn't respond. He reports that her eyes were open, but she seemed "zoned out." He states that she didn't pass out, but seemed very close to it. He reports that he immediately called 911. He states that she had eaten a decent chunk of her meal before this episode. Her son states that she was confused when she started to come around. The patient states that before the episode she was slightly nauseous, but is not experiencing any now. She states that she has felt fine the past couple days. She notes that she has no history of heart attacks or strokes. She states she does have a history of congestive heart failure and diabetes. She notes that her sugars were at a good level this morning. Her son notes that she does take Coumadin. Pt denies LOC, headache, fevers, chills, visual changes, neck pain, chest pain, breathing difficulties, vomiting, abdominal pain, back pain, melena, hematochezia, urinary symptoms, numbness, weakness, lymphadenopathy, rash, or other complaints. Source of History: patient, family Onset: an hour ago Position: other (global) Quality: other (global) Timing: other (episode) Associated Symptoms: + diaphoresis, + nausea Review of Systems See HPI for pertinent positives and negatives. A total of ten systems were reviewed and were otherwise negative. Past Medical & Surgical Medical Problems: (1) GERMAINE (acute kidney injury) (2) Breast cancer (3) Cataract (4) CKD (chronic kidney disease), stage IV (5) Diastolic CHF (6) DM type 2 (diabetes mellitus, type 2) (7) Dyslipidemia (8) History of bladder cancer (9) History of melanoma (10) Hyperglycemia (11) Hypertension (12) Paroxysmal atrial fibrillation (13) S/p excision of bladder tumor Surgical Problems: (1) H/O cystoscopy (2) H/O hernia repair (3) H/O lymph node biopsy (4) H/O partial mastectomy (5) S/P lumbar laminectomy (6) S/P right knee arthroscopy (7) S/P BR[place]NN-BSO (8) Status post Mohs surgery Family History Cardiac disorder FATHER MOTHER Social History Smoking Status: Never Smoker Alcohol Use: none Drug Use: none Marital Status: Housing Status: lives alone Occupation Status: retired Current/Historical Medications Scheduled Amiodarone Hcl (Cordarone), 200 MG PO DAILY Aspirin (Aspirin Ec), 81 MG PO DAILY Atorvastatin (Lipitor), 40 MG PO HS Furosemide (Furosemide), 40 MG PO DAILY Hydralazine Hcl (Apresoline), 12.5 MG PO TID Insulin Aspart (Novolog Flexpen), 6 UNITS SQ BIDM Insulin Degludec (Tresiba Flextouch), 22 UNITS SC HS Isosorbide Mononitrate Ext Rel (Imdur Ext Rel), 60 MG PO QAM Metoprolol Succ (Toprol Xl) (Toprol-Xl), 25 MG PO DAILY Warfarin Sod (Coumadin), 1 TAB PO 5XWK Warfarin Sod (Coumadin), 1 TAB PO 2XWK Scheduled PRN Polyethylene (Miralax), 17 GM PO DAILY PRN for Constipation Allergies Coded Allergies: Anastrozole (Verified Allergy, Severe, ANAPHYLAXIS, 02/28/17) edema face/tongue/lips Pioglitazone (Verified Allergy, Intermediate, HIVES, 02/28/17) Metformin (Verified Adverse Reaction, Intermediate, DIARRHEA, 02/28/17) Physical Exam Vital Signs Date Time Temp Pulse Resp B/P Pulse Ox O2 Delivery O2 Flow Rate FiO2 02/28/17 17:06 94 Nasal Cannula 2.0 02/28/17 17:04 69 18 211/57 90 Room Air 02/28/17 16:10 67 20 163/87 88 Room Air 02/28/17 15:08 66 20 193/74 92 Room Air 02/28/17 14:29 66 20 176/59 94 Room Air 02/28/17 13:47 91 Room Air 02/28/17 13:06 64 02/28/17 13:04 36.7 66 20 194/78 92 Room Air Physical Exam GENERAL: Awake, alert, well-appearing, in no distress HENT: Normocephalic, atraumatic. Oropharynx unremarkable. EYES: Normal conjunctiva. Sclera non-icteric. NECK: Supple. No nuchal rigidity. FROM. No JVD. RESPIRATORY: Clear to auscultation. CARDIAC: Regular rate, normal rhythm. Extremities warm and well perfused. Pulses equal. Systolic ejection murmur. ABDOMEN: Soft, non-distended. No tenderness to palpation. No rebound or guarding. No masses. RECTAL: Deferred. MUSCULOSKELETAL: Chest examination reveals no tenderness. The back is symmetrical on inspection without obvious abnormality. There is no CVA tenderness to palpation. No joint edema. LOWER EXTREMITIES: Calves are equal size bilaterally and non-tender. No edema. No discoloration. NEURO: Normal sensorium. No sensory or motor deficits noted. SKIN: No rash or jaundice noted. Medical Decision & Procedures ER Provider Diagnostic Interpretation: Radiology results as stated below per my review and radiologist interpretation: CT OF THE HEAD WITHOUT CONTRAST CLINICAL HISTORY: Stroke. Sudden onset right-sided weakness and facial droop. Speech difficulty. COMPARISON STUDY: No previous studies for comparison. CT DOSE: 537.48 mGy.cm TECHNIQUE: Helical axial images of the head were obtained without IV contrast. Automated exposure control was utilized for the study. FINDINGS: No acute intracranial hemorrhage, midline shift or mass effect is present. Mild ventricular dilatation is likely due to central atrophy. The basilar cisterns are patent. There are no extra axial collections. There is equivocal loss of campo-white differentiation within the left insular cortex. Extensive white matter hypodensity suggests small vessel disease. There is no calvarial fracture. Visualized portions of the mastoid air cells and sinuses are clear. IMPRESSION: 1. No acute intracranial hemorrhage or mass effect. 2. Possible loss of campo-white differentiation within the left insular cortex. This may be artifactual although an acute infarct could have this appearance. Electronically signed by: Mark Olmos M.D. 02/28/2017 2:06 PM Dictated Date/Time: 02/28/2017 2:01 PM Laboratory Results 02/28/17 13:30 Red Blood Count 3.79, Mean Corpuscular Volume 92.9, Mean Corpuscular Hemoglobin 30.9, Mean Corpuscular Hemoglobin Concent 33.2, Mean Platelet Volume 9.7, Neutrophils (%) (Auto) 77.5, Lymphocytes (%) (Auto) 9.7, Monocytes (%) (Auto) 8.1, Eosinophils (%) (Auto) 4.1, Basophils (%) (Auto) 0.4, Neutrophils # (Auto) 7.62, Lymphocytes # (Auto) 0.95, Monocytes # (Auto) 0.80, Eosinophils # (Auto) 0.40, Basophils # (Auto) 0.04 02/28/17 13:30 Test 02/28/17 13:30 02/28/17 13:32 White Blood Count 9.83 K/uL (4.8-10.8) Red Blood Count 3.79 M/uL (4.2-5.4) Hemoglobin 11.7 g/dL (12.0-16.0) Hematocrit 35.2 % (37-47) Mean Corpuscular Volume 92.9 fL (80-100) Mean Corpuscular Hemoglobin 30.9 pg (25-34) Mean Corpuscular Hemoglobin Concent 33.2 g/dl (32-36) Platelet Count 246 K/uL (130-400) Mean Platelet Volume 9.7 fL (7.4-10.4) Neutrophils (%) (Auto) 77.5 % Lymphocytes (%) (Auto) 9.7 % Monocytes (%) (Auto) 8.1 % Eosinophils (%) (Auto) 4.1 % Basophils (%) (Auto) 0.4 % Neutrophils # (Auto) 7.62 K/uL (1.4-6.5) Lymphocytes # (Auto) 0.95 K/uL (1.2-3.4) Monocytes # (Auto) 0.80 K/uL (0.11-0.59) Eosinophils # (Auto) 0.40 K/uL (0-0.5) Basophils # (Auto) 0.04 K/uL (0-0.2) RDW Standard Deviation 43.9 fL (36.4-46.3) RDW Coefficient of Variation 12.9 % (11.5-14.5) Immature Granulocyte % (Auto) 0.2 % Immature Granulocyte # (Auto) 0.02 K/uL (0.00-0.02) Prothrombin Time 18.5 SECONDS (9.0-12.0) Prothromb Time International Ratio 1.7 (0.9-1.1) Activated Partial Thromboplast Time 30.2 SECONDS (21.0-31.0) Partial Thromboplastin Ratio 1.2 Anion Gap 5.0 mmol/L (3-11) Est Creatinine Clear Calc Drug Dose 16.3 ml/min Estimated GFR () 23.6 Estimated GFR (Non- 20.4 BUN/Creatinine Ratio 20.1 (10-20) Calcium Level 8.7 mg/dl (8.5-10.1) Total Creatine Kinase 108 U/L (26-192) Creatine Kinase MB 2.9 ng/ml (0.5-3.6) Creatine Kinase MB Ratio 2.7 (0-3.0) Troponin I 0.023 ng/ml (0-0.045) Bedside Glucose 144 mg/dl (70-90) Laboratory results reviewed by me Medications Administered Medications (Trade) Dose Ordered Sig/Mustapha Route Start Time Stop Time Status Last Admin Dose Admin Aspirin (Aspirin Chew) 324 mg NOW STAT PO 02/28/17 15:43 02/28/17 15:44 DC 02/28/17 17:01 324 MG Potassium Chloride (Melissa Ciel Elix) 40 meq NOW STAT PO 02/28/17 16:08 02/28/17 16:10 DC 02/28/17 17:01 40 MEQ ECG Indication: other (close to syncope) Rate (beats per minute): 65 Rhythm: sinus rhythm 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 A complete history and physical exam was performed. 1503: I updated the patient on the stroke like findings. She states that she does not want to stay in the hospital. Her one son is calling her other son in an attempt to convince her to stay. 1531: I reevaluated the patient. She is still refusing an IV, but decided it is okay to stay in the hospital. I informed her of the future treatment plan. She verbalized agreement and understanding. 1542: Discussed the patient's case with Dr. Killian. He requested that the patient be given an Aspirin and Potassium. The patient will be evaluated for further treatment and disposition. 1543: Ordered Aspirin 324 mg PO, Potassium Chloride 40 meq PO. 1608: Ordered Potassium Chloride 40 meq PO. Medical Decision Triage Nursing notes reviewed. The patient's presentation and history were concerning for near syncope and strokelike symptoms. Etiologies such as CVA, TIA, metabolic, infection, hypo/hyperglycemia, electrolyte abnormalities, cardiac sources, intracerebral event, toxicologic, neurologic, as well as others were entertained. The patient was evaluated. She was already feeling well and was a symptomatic. Family states that she was back to normal. She initially refused IV and testing for EMS and 4 nursing. I did convince the patient to allow us to run basic checks and she agreed only to a laboratory blood draw, CT, and ECG. The patient refused IV placement. She was initially refusing any treatment in the hospital. She was not confused. She states that she does not like hospital or like to have IVs or needles. Family states this is common for her. The patient underwent CT imaging and this revealed findings concerning for possible CVA. The patient had a mild anemia on CBC. INR was subtherapeutic at 1.7. Potassium was mildly low at 2.9. Her creatinine was stable at 2.1 and she had some mild dehydration on chemistry panel. BUN and creatinine ratio was mildly elevated. Cardiac markers were negative. The patient was still refusing IV placement. She is on anticoagulation and without allowing IV placement there is no indication for thrombolysis or emergent neurology consult for consideration of TPA. The patient understands that she has had findings concerning for stroke. She was refusing MRI. Potassium was ordered orally but the patient refused pills and would only take liquid. This was changed. I did consult with internal medicine. Dr. Killian asked the patient to receive aspirin and this was ordered. She will see the patient in the Emergency Room for further management. Family is very much in agreement with my recommendations and tried to convince the patient to comply with all medical directives. I gave my usual and customary discussion regarding this issue. The patient has demonstrated no significant defect in the decision-making capacity to make choices. The encounter had a good level of communication with language the patient can easily understand. I feel trust was present and conveyed that our action/intentions were the best interest of the patient. The patient was given all relevant information and reiterated the explained risks and benefits. The patient explained the reasoning for refusing treatment clearly. The patient possesses and expresses a set of values and goals, the ability to communicate and understand, and an ability to reason and deliberate. Despite acting emphatically, attentively and with the utmost patient's the patient declined certain treatments. I offered options, negotiated, and explored every reasonable choice. I must respect the patient's autonomy and that they feel that their choices are best for them despite the associated risks. The chart was completed utilizing [employer] Speech voice recognition software. Grammatical errors, random word insertions, pronoun errors, and incomplete sentences are an occasional consequence of this system due to software limitations, ambient noise, and hardware issues. Any formal questions or concerns about the content, text, or information contained within the body of this dictation should be directly addressed to the physician for clarification. Consults Time Called: [phone] Consulting Physician: Dr. Killian Returned Call: [phone] Discussed the patient's case with Dr. Killian. He requested that the patient be given an Aspirin and Potassium. The patient will be evaluated for further treatment and disposition. Impression Primary Impression: CVA (cerebral vascular accident) Additional Impression: Near syncope Scribe Attestation The scribe's documentation has been prepared under my direction and personally reviewed by me in its entirety. I confirm that the note above accurately reflects all work, treatment, procedures, and medical decision making performed by me. Departure Information Dispostion Being Evaluated By Hospitalist Referrals Adam Dominguez D.O. (PCP) Patient Instructions My [facility] Problem Qualifiers
--- NOTE | 2017-02-28 19:06 | Pharmacy Progress Note ---
Glycemic Control Intl Consult Date of Service February 28, 2017. Scope Glycemic Pharmacist consulted by Dr. Killian on 02/28/17 for glycemic control and to write orders per formerly [facility] inpatient glycemic control protocol Objective Weight (Kilograms): 62.000 Accuchecks BSG (last 24hrs): Test 02/28/17 13:30 02/28/17 13:32 Random Glucose 154 mg/dl (70-99) Bedside Glucose 144 mg/dl (70-90) Laboratory Data (last 24hrs) Test 02/28/17 13:30 Anion Gap 5.0 mmol/L BUN/Creatinine Ratio 20.1 Blood Urea Nitrogen 42 mg/dl Creatinine 2.10 mg/dl Potassium Level 2.9 mmol/L Sodium Level 138 mmol/L White Blood Count 9.83 K/uL Red Blood Count 3.79 M/uL Hemoglobin 11.7 g/dL Hematocrit 35.2 % Mean Corpuscular Volume 92.9 fL Mean Corpuscular Hemoglobin 30.9 pg Mean Corpuscular Hemoglobin Concent 33.2 g/dl Platelet Count 246 K/uL Mean Platelet Volume 9.7 fL Neutrophils (%) (Auto) 77.5 % Lymphocytes (%) (Auto) 9.7 % Monocytes (%) (Auto) 8.1 % Eosinophils (%) (Auto) 4.1 % Basophils (%) (Auto) 0.4 % Neutrophils # (Auto) 7.62 K/uL Lymphocytes # (Auto) 0.95 K/uL Monocytes # (Auto) 0.80 K/uL Eosinophils # (Auto) 0.40 K/uL Basophils # (Auto) 0.04 K/uL HbA1c Item Value Date Time Hemoglobin A1c 9.6 % H 01/20/17 0555 Recent Pertinent Medications Outpatient Anti-diabetic Regimen: * Insulin degludec 22 units sq HS + Novolog 6 units BID with meals * A1c = 9.6 % 01/20/17 Risk Factors for Insulin Resistance: * Diet: T2DM Assessment & Plan ASSESSMENT: * 89 yr old T2DM female with h/o of CKD stage IV admitted with right sided weakness, r/o stroke. * Patient is known to the Pharmacy Glycemic Service * Recent admission to [facility] 01/19/17-01/25/17 for CHF exacerbation * Total daily insulin requirements ranged from 22-40 units during past admission. * Patient required ~40% reduction in basal insulin while in house * The patient reports taking her home dose of degludec 22 units last evening. She also took 6 units of novolog prior to arrival. * Basal insulin will be converted to Lantus. A reduced dose will be utilized initially due to above data from previous admission and given the fact that current BSG is within goal range. * ADA & AACE recommend a goal blood sugar range 140-180 mg/dl for the majority of critically ill & non-critically ill patients. However, more stringent targets may be selected in individual cases. PLAN FOR INPATIENT GLYCEMIC CONTROL: * Basal insulin with LANTUS 12 units SQ HS * Bolus insulin with NOVOLOG per scale ACHS * Goal Range: Low 140 mg/dL - High 180 mg/dL * Correction Factor: 35 mg/dL/unit * Nutritional / Prandial insulin per carb ratio of 1 unit per 12 grams CHO consumed * Please note that the plan above was derived based on current level of insulin resistance and hospital stress. These recommendations are appropriate for inpatient admission only. Plan of care upon discharge will need to be reassessed to avoid potential outpatient hypo/hyperglycemia. Thank you.
[2017-02-28] MEDS ORDERED: HydrALAZINE HCL 20 MG/ML VIAL IV. STA (20:36)
[2017-02-28] MEDS ORDERED: INSULIN GLARGINE SOLOSTAR 100 UNITS/ML 3 ML PEN SC SCH (21:00)
[2017-02-28] MEDS ORDERED: WARFARIN SOD 4 MG TAB PO SCH (21:00)
--- NOTE | 2017-02-28 21:00 | History and Physical ---
History & Physical Date & Time of Service: February 28, 2017 at 17:15 Chief Complaint: Rt Sided Weakness Primary Care Physician: Adam Dominguez D.O. History of Present Illness Source: patient, family 89 yo F with atrial fibrillation who is subtherapeutic on her coumadin (INR 1.7 ) presented to the ER via EMS after a staring spell while eating at the [employer] today for kym. She states that she had a recent increase in her long- acting insulin from 18 Units to 22 Units and an increase in her Novolog from 4 Units twice daily with meals to 6 Units twice daily with meals. This occurred on 02/18. She notably was taken off Amaryl and placed on Novolog just on 02/12 and has had elevated sugars since then, followed by outpatient Case Management. She states that this morning, she took her Novolog, but then didn't eat for "quite a while" while she was waiting in line at the [employer], and even after this when they were waiting for food to arrive. She reports eating about half her breakfast and then doesn't remember what happened after this. Her son is present at the bedside and states that she looked as if she were staring off into space sitting up with her eyes open for about 5-10 minutes. She was unresponsive to people trying to get her attention and then spontaneously was fine and talking again. She has no recollection of the event, and states to me that she had no prodrome of feeling ill, although other reports state she reported some nausea. Her son states that his is a nurse and noted the patient to have a thready weak pulse, with clammy skin and diaphoresis with pallor. The patient began trying to eat again and resume breakfast as though nothing happened, however, she was stopped from taking anything PO by family members. On arrival to the ER CT head revealed no acute hemorrhage with some suspicious findings for artifact vs acute stroke. Her exam is nonfocal. BP was elevated into the 190s systolic. The patient's son denies seeing any focal facial droop, just noticed that her mouth was open and she wouldn't close it so was drooling. She has been ambulating without difficulty and swallowing without difficulty since the event. The patient herself is concerned with being admitted and having a bunch of tests run on her. She is currently declining a peripheral IV because of "inexperienced people attempting this in the past". She is OK if IV team or anesthesia tries. She is also declining an MRI at this time. Past Medical/Surgical History Medical Problems: (1) Breast cancer Permanent Comment: Infiltrating ductal carcinoma the left breast, T1b N0M0 stage I Sabrina Septer positive, progesterone receptor positive, HER-2/george negative Status post lumpectomy and sentinel lymph node biopsy Status post radiation therapy completed 05/25/2003 Close observation and no hormonal therapy Abnormal right breast mammogram 12/31/2014 decision for 6 month follow-up Abnormal mammogram Status post ultrasound guided biopsy September 06 2015 revealing invasive ductal carcinoma grade 1 Estrogen receptor positive, progesterone receptor positive, HER-2/george negative Status post lumpectomy and sentinel lymph node biopsy 11/06/2015 [id number] [id number] G1 Declined Oncotype DX and chemotherapy Status: Chronic (2) Cataract Status: Chronic (3) CKD (chronic kidney disease), stage IV Status: Chronic (4) Diastolic CHF Status: Chronic (5) DM type 2 (diabetes mellitus, type 2) Status: Chronic (6) Dyslipidemia Status: Chronic (7) History of bladder cancer Status: Chronic (8) History of melanoma Status: Chronic (9) Hypertension Status: Chronic (10) Paroxysmal atrial fibrillation Status: Chronic (11) S/p excision of bladder tumor Status: Chronic Surgical Problems: (1) H/O cystoscopy Status: Chronic (2) H/O hernia repair Status: Chronic (3) H/O lymph node biopsy Status: Chronic (4) H/O partial mastectomy Status: Chronic (5) S/P lumbar laminectomy Status: Chronic (6) S/P right knee arthroscopy Status: Chronic (7) S/P BROOK[place]NN-BSO Status: Chronic (8) Status post Mohs surgery Status: Chronic Family History Cardiac disorder FATHER MOTHER Social History Smoking Status: Never Smoker Smokeless Tobacco Use: No Alcohol Use: none Drug Use: none Marital Status: Housing status: lives with family (lives with her two adult sons) Occupational Status: retired Immunizations History of Influenza Vaccine: Yes Influenza Vaccine Date: Jul 27, 2016 History of Tetanus Vaccine?: Unknown History of Pneumococcal: Yes Pneumococcal Date: Jul 30, 2015 History of Hepatitis B Vaccine: No Multi-Drug Resistant Organisms History of MDRO: No Allergies Coded Allergies: Anastrozole (Verified Allergy, Severe, ANAPHYLAXIS, 5/14/17) edema face/tongue/lips Pioglitazone (Verified Allergy, Intermediate, HIVES, 02/28/17) Metformin (Verified Adverse Reaction, Intermediate, DIARRHEA, 02/28/17) Home Medications Scheduled Amiodarone Hcl (Cordarone), 200 MG PO DAILY Aspirin (Aspirin Ec), 81 MG PO DAILY Atorvastatin (Lipitor), 40 MG PO HS Furosemide (Furosemide), 40 MG PO DAILY Hydralazine Hcl (Apresoline), 12.5 MG PO TID Insulin Aspart (Novolog Flexpen), 6 UNITS SQ BIDM Insulin Degludec (Tresiba Flextouch), 22 UNITS SC HS Isosorbide Mononitrate Ext Rel (Imdur Ext Rel), 60 MG PO QAM Metoprolol Succ (Toprol Xl) (Toprol-Xl), 25 MG PO DAILY Warfarin Sod (Coumadin), 1 TAB PO 5XWK Warfarin Sod (Coumadin), 1 TAB PO 2XWK Scheduled PRN Polyethylene (Miralax), 17 GM PO DAILY PRN for Constipation Review of Systems Constitutional: No chills, No fever, No weakness Eyes: No diplopia, No worsening of vision ENT: No sore throat, No trouble swallowing Respiratory: No cough, No shortness of breath Cardiovascular: No chest pain, No edema Abdomen: + constipation, No GI bleeding, No diarrhea, No nausea, No pain, No vomiting Musculoskeletal: No problem reported Genitourinary - Female: No problem reported Neurologic: + memory loss (couldn't remember the acute event today, but otherwise ok) Psychiatric: No problem reported Hematologic / Lymphatic: No abnormal bleeding/bruising Integumentary: No new/changing skin lesions, No rash Allergic / Immunologic: No food allergies Physical Exam Vital Signs Date Time Temp Pulse Resp B/P Pulse Ox O2 Delivery O2 Flow Rate FiO2 02/28/17 17:06 94 Nasal Cannula 2.0 02/28/17 17:04 69 18 211/57 90 Room Air 02/28/17 16:10 67 20 163/87 88 Room Air 02/28/17 15:08 66 20 193/74 92 Room Air 02/28/17 14:29 66 20 176/59 94 Room Air 02/28/17 13:47 91 Room Air 02/28/17 13:06 64 02/28/17 13:04 36.7 66 20 194/78 92 Room Air GEN: WNWD, in no acute distress, alert and appropriate HEENT: NC/AT, PERRL, normal sclerae, normal conjunctivae, fundoscopic exam was normal, EOMI, pharynx was non-acute, mucous membranes were moist CARDIO: reg rate, S1/2 heard without m/g/r LUNGS: CTA bilaterally, no crackles, rales or wheezes, good diaphragmatic excursion ABD: soft, non-tender, non-distended, no rebound or guarding, +BS EXTREMITY: RP and DP palpable 2+ bilat, no LE swelling or edema, extremities are warm and well-perfused, stockings in place. NEURO: CN 2-12 intact, sensation intact throughout, knee reflex 2/4 bilateral. Moves all extremities equally. Gait was not assessed, but ER doc reports ambulates well to bathroom MUSC: 5/5 strength throughout, no focal deficits SKIN: warm and dry Diagnostics Laboratory Results Results Past 24 Hours Test 02/28/17 13:30 02/28/17 13:32 Range/Units White Blood Count 9.83 4.8-10.8 K/uL Red Blood Count 3.79 4.2-5.4 M/uL Hemoglobin 11.7 12.0-16.0 g/dL Hematocrit 35.2 37-47 % Mean Corpuscular Volume 92.9 80-100 fL Mean Corpuscular Hemoglobin 30.9 25-34 pg Mean Corpuscular Hemoglobin Concent 33.2 32-36 g/dl Platelet Count 246 130-400 K/uL Mean Platelet Volume 9.7 7.4-10.4 fL Neutrophils (%) (Auto) 77.5 % Lymphocytes (%) (Auto) 9.7 % Monocytes (%) (Auto) 8.1 % Eosinophils (%) (Auto) 4.1 % Basophils (%) (Auto) 0.4 % Neutrophils # (Auto) 7.62 1.4-6.5 K/uL Lymphocytes # (Auto) 0.95 1.2-3.4 K/uL Monocytes # (Auto) 0.80 0.11-0.59 K/uL Eosinophils # (Auto) 0.40 0-0.5 K/uL Basophils # (Auto) 0.04 0-0.2 K/uL RDW Standard Deviation 43.9 36.4-46.3 fL RDW Coefficient of Variation 12.9 11.5-14.5 % Immature Granulocyte % (Auto) 0.2 % Immature Granulocyte # (Auto) 0.02 0.00-0.02 K/uL Prothrombin Time 18.5 9.0-12.0 SECONDS Prothromb Time International Ratio 1.7 0.9-1.1 Activated Partial Thromboplast Time 30.2 21.0-31.0 SECONDS Partial Thromboplastin Ratio 1.2 Sodium Level 138 136-145 mmol/L Potassium Level 2.9 3.5-5.1 mmol/L Chloride Level 100 98-107 mmol/L Carbon Dioxide Level 33 21-32 mmol/L Anion Gap 5.0 3-11 mmol/L Blood Urea Nitrogen 42 7-18 mg/dl Creatinine 2.10 0.60-1.20 mg/dl Est Creatinine Clear Calc Drug Dose 16.3 ml/min Estimated GFR () 23.6 Estimated GFR (Non- 20.4 BUN/Creatinine Ratio 20.1 10-20 Random Glucose 154 70-99 mg/dl Calcium Level 8.7 8.5-10.1 mg/dl Total Creatine Kinase 108 26-192 U/L Creatine Kinase MB 2.9 0.5-3.6 ng/ml Creatine Kinase MB Ratio 2.7 0-3.0 Troponin I 0.023 0-0.045 ng/ml Bedside Glucose 144 70-90 mg/dl Diagnostic Radiology CT OF THE HEAD WITHOUT CONTRAST CLINICAL HISTORY: Stroke. Sudden onset right-sided weakness and facial droop. Speech difficulty. COMPARISON STUDY: No previous studies for comparison. CT DOSE: 537.48 mGy.cm TECHNIQUE: Helical axial images of the head were obtained without IV contrast. Automated exposure control was utilized for the study. FINDINGS: No acute intracranial hemorrhage, midline shift or mass effect is present. Mild ventricular dilatation is likely due to central atrophy. The basilar cisterns are patent. There are no extra axial collections. There is equivocal loss of campo-white differentiation within the left insular cortex. Extensive white matter hypodensity suggests small vessel disease. There is no calvarial fracture. Visualized portions of the mastoid air cells and sinuses are clear. IMPRESSION: 1. No acute intracranial hemorrhage or mass effect. 2. Possible loss of campo-white differentiation within the left insular cortex. This may be artifactual although an acute infarct could have this appearance. 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 Impression Assessment and Plan 89 yo diabetic female with recent changes to insulin and h/o afib on coumadin presents to ER via EMS after a period of unresponsiveness while eating brunch today 1. AMS-resolved, acute. Uncertain etiology but possibilities include but not limited to alteration in blood sugar chemistry versus TIA. With recent changes to insulin in the last two weeks and report of taking her Novolog well before actually eating something, I am favoring this as a cause of her symptoms. She did not lose consciousness and had no focal deficits noted by family at the time of the reported unresponsiveness. She also had signs of hypoglycemia including thready weak pulse, diaphoresis, and some distant reports of nausea prior to the spell. TIA is still possible, of course, with her h/o afib and age. ASA ordered and statin continued. However, she is taking coumadin putting her at lower risk and the CT reading noted the area in question may be artifact. She currently has no focal deficits and was reported by the ER doctor to be ambulating on her own. She typically ambulates at home with a walker. Ordered dysphagia screening (although no apparent issues), PT/OT evals and appreciate neuro consult. The patient refuses an MRI at this time. Last TTE was 01/20/17 revealing EF 65-70% with mod MS and mod MR. 2. HTN-elevated, allowing some permissive hypertension in setting of poss TIA. I believe some of this is 2/2 agitation from being in the hospital. Per her son, she has taken all her BP meds today. 3. S5RO-Dmwmth/ISS and carb coverage. Pharmacy consult placed. 4. CKD IV-at current baseline. Interesting to note drastic decline in kidney function since 05/2016 when it was normal. Cont outpatient monitoring/workup of this. 5. Paroxysmal atrial fibrillation-in sinus rhythm on exam. Subtherapeutic INR on coumadin. Cont this and amiodarone and Toprol. 6. Chronic diastolic heart failure-euvolemic, at baseline. DVT prophy-Coumadin Dispo-telemetry for monitoring overnight Full Code-verified with her in front of her son, who agrees with this plan. DO Rojelio Adams Hospitalist. Level of Care Telemetry Resuscitation Status FULL RESUSCITATION VTE Prophylaxis Given or contraindicated: Warfarin (Coumadin), SCD's
[2017-02-28] MEDS: ATORVASTATIN 40 MG TAB PO SCH (21:02)
[2017-02-28] MEDS: INSULIN ASPART 100 UNITS/ML 3 ML PEN SC SCH (21:18)
[2017-02-28] MEDS ORDERED: INSULIN HUMAN REGULAR PER UNIT 5 UNITS in SYRINGE 4.95 ML IV SCH (21:30)
[2017-02-28 21:45] VITALS: BP 178/90; PULSE 72; O2SAT 95
[2017-02-28 23:45] VITALS: BP 185/71; PULSE 68; TEMP 36.5; O2SAT 98
[2017-03-01] VITALS (7 sets, daily range): BP systolic 84–178; BP diastolic 43–81; PULSE 52–89; TEMP 36.2–36.8; O2SAT 90–94; Ht 165.1 cm; Wt 58.3 kg
[2017-03-01] MEDS ORDERED: INSULIN ASPART 100 UNITS/ML 3 ML PEN SC SCH (02:00)
[2017-03-01 06:04] LABS: BASO % 0.2 %; BASO ABS # 0.02 K/uL (0-0.2); COMPLETE YES; EOS % 3.6 %; HEMATOCRIT 33.5 % (37-47); IG% 0.2 %; LYMPH % 12.9 %; LYMPH ABS # 1.23 K/uL (1.2-3.4); MEAN CELL VOLUME 92.5 fL (80-100); MEAN CORPUSCULAR HEMOGLOBIN 31.5 pg (25-34); MEAN PLATELET VOLUME 10.1 fL (7.4-10.4); MONO % 8.8 %; NEUT % 74.3 %; PLATELET COUNT 253 K/uL (130-400); RED BLOOD COUNT 3.62 M/uL (4.2-5.4); WHITE BLOOD COUNT 9.57 K/uL (4.8-10.8)
[2017-03-01 06:10] LABS: INR 1.5 (0.9-1.1); PROTHROMBIN TIME (PATIENT) 16.8 SECONDS (9.0-12.0)
[2017-03-01] MEDS: INSULIN ASPART 100 UNITS/ML 3 ML PEN SC SCH ×4 (06:30→21:00)
[2017-03-01 06:33] LABS: ESTIMATED AVERAGE GLUCOSE 255 mg/dl; HA1C FLAG Normal (Normal)
[2017-03-01 06:36] LABS: BUN/CREATININE RATIO 19.5 (10-20); CALCIUM 8.6 mg/dl (8.5-10.1); CHOLESTEROL/HDL RATIO 2.7; POTASSIUM 3.6 mmol/L (3.5-5.1)
[2017-03-01] MEDS: ISOSORBIDE MONONITRATE 30 MG TABCR PO SCH (08:24)
[2017-03-01] MEDS: AMIODARONE 200 MG TAB PO SCH (08:24)
[2017-03-01] MEDS: ASPIRIN 325 MG ECTAB PO SCH (08:25)
[2017-03-01] MEDS: METOPROLOL SUCC 25MG EXT REL TAB PO SCH (08:25)
[2017-03-01] MEDS ORDERED: INSULIN GLARGINE SOLOSTAR 100 UNITS/ML 3 ML PEN SC ONE (09:00)
[2017-03-01] MEDS ORDERED: FUROSEMIDE 40 MG TAB PO SCH (09:00)
--- NOTE | 2017-03-01 11:09 | Progress Note ---
Medicine Progress Note Date & Time of Visit: March 01, 2017 at 11:00. Subjective patient seen sitting up in bedside chair, comfortable states she feels fine overall denies focal weakness and numbness, headache, dizziness ,nausea denies chest pain, dyspnea, palpitations ambulates with no problems states she has been feeling fine lately, no prodrome before yesterday's episode frustrated that she is in the hospital, " i don't know why they are doing all of these, i feel fine" Objective Last 8 Hrs Date Time Temp Pulse Resp B/P Pulse Ox O2 Delivery O2 Flow Rate FiO2 03/01/17 09:10 Room Air 03/01/17 06:51 36.7 73 18 160/70 92 Room Air 03/01/17 04:00 Room Air Physical Exam: General- oriented x 3, not in distress, speaks in sentences with no effort Head- atraumatic Eyes- EOMI, anicteric ENT- oropharynx clear Neck- supple, no JVD, no adenopathy, no thyromegaly no bruits appreciated Lungs- clear breath sounds bilaterally Heart- regular rhythm; no murmur, normal rate Abdomen- normal bowel sounds, soft, nontender Extremities- no pretibial edema, no calf tenderness Neuro- alert, oriented x 3; no gross focal deficits Skin- warm & dry Laboratory Results: Last 24 Hours Test 02/28/17 13:30 02/28/17 13:32 02/28/17 21:05 02/28/17 21:09 White Blood Count 9.83 K/uL Red Blood Count 3.79 M/uL Hemoglobin 11.7 g/dL Hematocrit 35.2 % Mean Corpuscular Volume 92.9 fL Mean Corpuscular Hemoglobin 30.9 pg Mean Corpuscular Hemoglobin Concent 33.2 g/dl Platelet Count 246 K/uL Mean Platelet Volume 9.7 fL Neutrophils (%) (Auto) 77.5 % Lymphocytes (%) (Auto) 9.7 % Monocytes (%) (Auto) 8.1 % Eosinophils (%) (Auto) 4.1 % Basophils (%) (Auto) 0.4 % Neutrophils # (Auto) 7.62 K/uL Lymphocytes # (Auto) 0.95 K/uL Monocytes # (Auto) 0.80 K/uL Eosinophils # (Auto) 0.40 K/uL Basophils # (Auto) 0.04 K/uL RDW Standard Deviation 43.9 fL RDW Coefficient of Variation 12.9 % Immature Granulocyte % (Auto) 0.2 % Immature Granulocyte # (Auto) 0.02 K/uL Prothrombin Time 18.5 SECONDS Prothromb Time International Ratio 1.7 Activated Partial Thromboplast Time 30.2 SECONDS Partial Thromboplastin Ratio 1.2 Sodium Level 138 mmol/L Potassium Level 2.9 mmol/L Chloride Level 100 mmol/L Carbon Dioxide Level 33 mmol/L Anion Gap 5.0 mmol/L Blood Urea Nitrogen 42 mg/dl Creatinine 2.10 mg/dl Est Creatinine Clear Calc Drug Dose 16.3 ml/min Estimated GFR () 23.6 Estimated GFR (Non- 20.4 BUN/Creatinine Ratio 20.1 Random Glucose 154 mg/dl Calcium Level 8.7 mg/dl Total Creatine Kinase 108 U/L Creatine Kinase MB 2.9 ng/ml Creatine Kinase MB Ratio 2.7 Troponin I 0.023 ng/ml Bedside Glucose 144 mg/dl 355 mg/dl 372 mg/dl Test 03/01/17 01:58 03/01/17 05:31 03/01/17 08:30 Bedside Glucose 286 mg/dl 250 mg/dl White Blood Count 9.57 K/uL Red Blood Count 3.62 M/uL Hemoglobin 11.4 g/dL Hematocrit 33.5 % Mean Corpuscular Volume 92.5 fL Mean Corpuscular Hemoglobin 31.5 pg Mean Corpuscular Hemoglobin Concent 34.0 g/dl Platelet Count 253 K/uL Mean Platelet Volume 10.1 fL Neutrophils (%) (Auto) 74.3 % Lymphocytes (%) (Auto) 12.9 % Monocytes (%) (Auto) 8.8 % Eosinophils (%) (Auto) 3.6 % Basophils (%) (Auto) 0.2 % Neutrophils # (Auto) 7.12 K/uL Lymphocytes # (Auto) 1.23 K/uL Monocytes # (Auto) 0.84 K/uL Eosinophils # (Auto) 0.34 K/uL Basophils # (Auto) 0.02 K/uL RDW Standard Deviation 43.7 fL RDW Coefficient of Variation 12.9 % Immature Granulocyte % (Auto) 0.2 % Immature Granulocyte # (Auto) 0.02 K/uL Prothrombin Time 16.8 SECONDS Prothromb Time International Ratio 1.5 Sodium Level 140 mmol/L Potassium Level 3.6 mmol/L Chloride Level 103 mmol/L Carbon Dioxide Level 31 mmol/L Anion Gap 6.0 mmol/L Blood Urea Nitrogen 39 mg/dl Creatinine 2.00 mg/dl Est Creatinine Clear Calc Drug Dose 17.2 ml/min Estimated GFR () 25.0 Estimated GFR (Non- 21.6 BUN/Creatinine Ratio 19.5 Random Glucose 203 mg/dl Estimated Average Glucose 255 mg/dl Hemoglobin A1c 10.5 % Calcium Level 8.6 mg/dl Triglycerides Level 76 mg/dl Cholesterol Level 116 mg/dl HDL Cholesterol 43 mg/dl LDL Cholesterol, Calculated 58 mg/dl VLDL Cholesterol, Calculated 15 mg/dl Cholesterol/HDL Ratio 2.7 Assessment & Plan 89 female with history of CHF Diastolic type, Paroxysmal A fib on coumadin, DM, HTN, CKD 4 presenting with episode of staring/unresponsiveness yesterday. ALTERED MENTAL STATUS - possible CVA/TIA CT head: possible artifact vs. infarct left insular cortex already on Aspirin, Statin, Coumadin patient declining MRI Brain despite explanation re: indication Neurology consulted - possible episode of A fib in RVR has history of paroxysmal a fib on coumadin INR subtherapeutic will increase coumadin continue Amiodarone and Metoprolol monitor in Tele - r/o Seizure EEG ordered - from Hypertensive Urgency patient was also very upset yesterday continue usual medications monitor BP Chronic diastolic heart failure-euvolemic, at baseline. T2DM -Lantus/ISS and carb coverage. - Pharmacy consult placed. CKD IV-at current baseline. - monitor Hypokalemia given K yesterday, resolved repeat again in AM patient on lasix DVT prophy-Coumadin Dispo pending patient lives with her sons Full Code she expresses frustration being in the hospital discussed medical condition and plan of care at length and in detail with patient all questions answered she is agreeable and comfortable with plan of care Current Inpatient Medications: Current Inpatient Medications Medications (Trade) Dose Ordered Sig/Mustapha Route Start Time Stop Time Status Last Admin Dose Admin Acetaminophen (Tylenol Tab) 650 mg Q4H PRN PO 02/28/17 17:00 03/30/17 16:59 Ondansetron HCl (Zofran Inj) 4 mg Q6H PRN IV 02/28/17 17:00 03/30/17 16:59 Aspirin (Ecotrin Tab) 325 mg QAM PO 03/01/17 09:00 03/31/17 08:59 03/01/17 08:25 325 MG Polyethylene (Miralax Powder Packet) 17 gm DAILY PRN PO 02/28/17 17:00 03/30/17 16:59 Insulin Aspart (novoLOG ASPART) PLEASE USE ABDOMEN TO ADMINIS... ACHS SC 02/28/17 21:00 03/30/17 20:59 02/28/17 21:18 5 UNITS Glucose (Glucose 40% Gel) 15-30 GRAMS 15 GRAMS... UD PRN PO 02/28/17 17:00 03/30/17 16:59 Glucose (Glucose Chew Tab) 4-8 Tablets 4 Tabl... UD PRN PO 02/28/17 17:00 03/30/17 16:59 Dextrose (Dextrose 50% 50ML Syringe) 25-50ML OF 50% DW IV FOR... UD PRN IV 02/28/17 17:00 03/30/17 16:59 Glucagon (Glucagon Inj) 1 mg UD PRN SQ 02/28/17 17:00 03/30/17 16:59 Miscellaneous Information (Consult Glycemic Management Pharmacy) 1 ea UD N/A 02/28/17 17:08 03/30/17 17:07 Miscellaneous Information (Pharmacist Discharge Med Rec Consult) 1 UD PRN N/A 02/28/17 17:00 03/30/17 16:59 Amiodarone HCl (Cordarone Tab) 200 mg DAILY PO 03/01/17 09:00 03/31/17 08:59 03/01/17 08:24 200 MG Atorvastatin Calcium (Lipitor Tab) 40 mg HS PO 02/28/17 21:00 03/30/17 20:59 02/28/17 21:02 40 MG Furosemide (Lasix Tab) 40 mg DAILY PO 03/01/17 09:00 03/31/17 08:59 03/01/17 08:25 40 MG Hydralazine HCl (Apresoline Tab) 12.5 mg TID PO 02/28/17 21:00 03/30/17 20:59 03/01/17 08:24 12.5 MG Isosorbide Mononitrate (Imdur Ext Rel Tab) 60 mg QAM PO 03/01/17 09:00 03/31/17 08:59 03/01/17 08:24 60 MG Metoprolol Succinate (Toprol Xl Tab) 25 mg DAILY PO 03/01/17 09:00 03/31/17 08:59 03/01/17 08:25 25 MG Warfarin Sodium (Coumadin Tab) 2 mg WeSa@1600 PO 03/03/17 16:00 04/02/17 15:59 Warfarin Sodium (Coumadin Tab) 4 mg SuMoTuThFr@1600 PO 02/28/17 21:00 03/30/17 20:59 02/28/17 21:02 4 MG Insulin Glargine (Lantus Solostar Pen) 6 unit 2100 SC 03/01/17 21:00 03/01/17 23:59
--- NOTE | 2017-03-01 11:22 | ELECTROENCEPHALOGRAPH REPORT ---
CLINICAL DIAGNOSIS: 89-year-old woman with recent staring spells several minutes duration. ELECTROENCEPHALOGRAM DIAGNOSIS: Essentially normal during wakefulness. DESCRIPTION OF TRACING: This EEG was done as a bedside recording and is of reasonable technical quality. Early on there are a number of muscle and movement artifacts, but these disappear as time goes on and this was confirmed by the simultaneous video analysis of patient movement and behavior. No stimulation parameters were utilized. Drowsiness and light sleep were not recorded. During wakefulness, there is evidence for a background rhythm in the alpha range of up to 9 Hz of maximum frequency and 30 microvolts of maximum amplitude. This is maximum posterior head regions and bilaterally symmetrical. Polymorphic mid frequency theta activity is seen over all head regions without clear focal or regional predominance. Anterior head region maximum bilaterally symmetrical low voltage fast activity in the beta range is present. At no time during the waking tracing is there evidence for potentially epileptogenic activity in the form of polyspike or spike wave bursts, focal sharp waves or focal spikes. INTERPRETATION: This EEG is essentially normal during wakefulness without evidence for focal or generalized encephalopathy and without evidence for potentially epileptogenic activity.
--- NOTE | 2017-03-01 13:46 | Pharmacy Progress Note ---
Glycemic Control: Progress Nt Date of Service March 01, 2017. Scope Glycemic Pharmacist consulted by Dr Killian on 02/28/17 for glycemic control and to write orders per [facility] inpatient glycemic control protocol. Objective Accuchecks BSG (last 24hrs): Test 02/28/17 13:30 02/28/17 13:32 02/28/17 21:09 03/01/17 01:58 Random Glucose 154 mg/dl (70-99) Bedside Glucose 144 mg/dl (70-90) 372 mg/dl (70-90) 286 mg/dl (70-90) Test 03/01/17 05:31 03/01/17 08:30 03/01/17 11:55 Random Glucose 203 mg/dl (70-99) Bedside Glucose 250 mg/dl (70-90) 302 mg/dl (70-90) Laboratory Data (last 24hrs) Test 02/28/17 13:30 03/01/17 05:31 Anion Gap 5.0 mmol/L 6.0 mmol/L BUN/Creatinine Ratio 20.1 19.5 Blood Urea Nitrogen 42 mg/dl 39 mg/dl Creatinine 2.10 mg/dl 2.00 mg/dl Potassium Level 2.9 mmol/L 3.6 mmol/L Sodium Level 138 mmol/L 140 mmol/L White Blood Count 9.83 K/uL 9.57 K/uL Red Blood Count 3.79 M/uL 3.62 M/uL Hemoglobin 11.7 g/dL 11.4 g/dL Hematocrit 35.2 % 33.5 % Mean Corpuscular Volume 92.9 fL 92.5 fL Mean Corpuscular Hemoglobin 30.9 pg 31.5 pg Mean Corpuscular Hemoglobin Concent 33.2 g/dl 34.0 g/dl Platelet Count 246 K/uL 253 K/uL Mean Platelet Volume 9.7 fL 10.1 fL Neutrophils (%) (Auto) 77.5 % 74.3 % Lymphocytes (%) (Auto) 9.7 % 12.9 % Monocytes (%) (Auto) 8.1 % 8.8 % Eosinophils (%) (Auto) 4.1 % 3.6 % Basophils (%) (Auto) 0.4 % 0.2 % Neutrophils # (Auto) 7.62 K/uL 7.12 K/uL Lymphocytes # (Auto) 0.95 K/uL 1.23 K/uL Monocytes # (Auto) 0.80 K/uL 0.84 K/uL Eosinophils # (Auto) 0.40 K/uL 0.34 K/uL Basophils # (Auto) 0.04 K/uL 0.02 K/uL Hemoglobin A1c 10.5 % HbA1c: Test 03/01/17 05:31 Hemoglobin A1c 10.5 % (4.5-5.6) H Recent Pertinent Medications Outpatient Anti-diabetic Regimen: * Insulin degludec 22 units sq HS + Novolog 6 units BID with meals * A1c = 9.6 % 01/20/17, 10.5% on 03/01/17 Risk Factors for Insulin Resistance: * Diet: T2DM Assessment & Plan ASSESSMENT: * 89 yr old T2DM female with h/o of CKD stage IV admitted with right sided weakness, r/o stroke. * Patient is known to the Pharmacy Glycemic Service * Recent admission to [facility] 01/19/17-01/25/17 for CHF exacerbation * Total daily insulin requirements ranged from 22-40 units during past admission. * Patient required ~40% reduction in basal insulin while in house * ADA & AACE recommend a goal blood sugar range 140-180 mg/dl for the majority of critically ill & non-critically ill patients. 03/01/17 * Patient became hyperglycemic overnight and was administered 5 units of regular IV insulin. * Patient has persistent hyperglycemia this am with current BSG greater than 300 mg/dL * Continue to titrate basal/bolus insulin regimen to meet goals of therapy * Patient was given a partial dose of Lantus last evening and therefore is deficient in basal insulin this morning. * Will give a one time dose of Lantus 10 units this am and resume her home dose of basal insulin this evening * Will tighten Novolog parameters and add overnight checks for additional coverage * Continue current goal range per patient is elderly with h/o CKD IV PLAN FOR INPATIENT GLYCEMIC CONTROL: * Basal insulin with LANTUS * Lantus 10 units SQ 515 am x 1 * Lantus 22 units SQ HS (ordered to give 15 units if BSG is less than 160 mg/dL ) * Bolus insulin with NOVOLOG per scale ACHS * Goal Range: Low 140 mg/dL - High 180 mg/dL * Correction Factor: 25 mg/dL/unit * Nutritional / Prandial insulin per carb ratio of 1 unit per 9 grams CHO consumed * Additional check plus coverage at 0000 and 0400 DISCHARGE RECOMMENDATIONS -awaited * Please note that the plan above was derived based on current level of insulin resistance and hospital stress. These recommendations are appropriate for inpatient admission only. Plan of care upon discharge will need to be reassessed to avoid potential outpatient hypo/hyperglycemia. Thank you.
--- NOTE | 2017-03-01 15:11 | Neurology Consultation ---
Neurology Consultation Date of Consultation: March 01, 2017. Attending Physician: Jim Hurd MD Primary Care Physician: Adam Dominguez D.O. Reason for Consultation: h/o afib, no hx stroke, subtherapeutic INR, DM with new changes History of Present Illness Source: patient Santa is a 89 year old female with atrial fibrillation who is subtherapeutic on her coumadin (INR 1.7), HTN, DL, CKD IV, TIA, bladder CA. She states she was at the [employer] shop with her 2 sons and grand son ate a couple fo bite of omelet at the [employer]. She states she gave herself her morning insulin as she had been directed and had not eaten anything. She after she ate a couple of bites she does not remember it happening but does remember everyone making a big fuzz and all she wasn't to do is finish her breakfast. her son had reported to the ED staff that she was just starring for about 5-10 minutes she then spontaneous was back to herself. She did feel some nausea prior to the event. Her daughter in law reported that she was clammy skin and diaphoresis with pallor. The family would not allow her to eat anything else and called 911. There was an area of question artifact vs acute stroke on her CT head but she is refusing an MRI. Her BP was elevated into the 190s systolic. The only other finding was some drooling.She was mad because she couldn't finish her breakfast. denies CP, SOB, abdominal pain, one sided weakness, numbness tingling, N, V, vision changes, swallowing difficulty, speech difficulty, loss of continence, biting tongue Past Medical/Surgical History Medical Problems: (1) Acute respiratory failure with hypoxia Status: Acute (2) CHF exacerbation Status: Acute (3) CVA (cerebral vascular accident) Status: Acute (4) Dehydration Status: Acute (5) Dyspnea on exertion Status: Acute (6) Elevated troponin Status: Acute (7) Hyperglycemia Status: Acute (8) Near syncope Status: Acute (9) Right knee pain Status: Acute Social History Smokeless Tobacco Use: No Alcohol Use: none Drug Use: none Marital Status: Housing Status: lives alone Occupation Status: retired Allergies Coded Allergies: Anastrozole (Verified Allergy, Severe, ANAPHYLAXIS, 02/28/17) edema face/tongue/lips Pioglitazone (Verified Allergy, Intermediate, HIVES, 02/28/17) Metformin (Verified Adverse Reaction, Intermediate, DIARRHEA, 02/28/17) Current Inpatient Medications Current Inpatient Medications Medications (Trade) Dose Ordered Sig/[place]apha Route Start Time Stop Time Status Last Admin Dose Admin Acetaminophen (Tylenol Tab) 650 mg Q4H PRN PO 02/28/17 17:00 03/30/17 16:59 Ondansetron HCl (Zofran Inj) 4 mg Q6H PRN IV 02/28/17 17:00 03/30/17 16:59 Aspirin (Ecotrin Tab) 325 mg QAM PO 03/01/17 09:00 03/31/17 08:59 03/01/17 08:25 325 MG Polyethylene (Miralax Powder Packet) 17 gm DAILY PRN PO 02/28/17 17:00 03/30/17 16:59 Insulin Aspart (novoLOG ASPART) PLEASE USE ABDOMEN TO ADMINIS... ACHS SC 02/28/17 21:00 03/30/17 20:59 03/01/17 13:25 8 UNITS Glucose (Glucose 40% Gel) 15-30 GRAMS 15 GRAMS... UD PRN PO 02/28/17 17:00 03/30/17 16:59 Glucose (Glucose Chew Tab) 4-8 Tablets 4 Tabl... UD PRN PO 02/28/17 17:00 03/30/17 16:59 Dextrose (Dextrose 50% 50ML Syringe) 25-50ML OF 50% DW IV FOR... UD PRN IV 02/28/17 17:00 03/30/17 16:59 Glucagon (Glucagon Inj) 1 mg UD PRN SQ 02/28/17 17:00 03/30/17 16:59 Miscellaneous Information (Consult Glycemic Management Pharmacy) 1 ea UD N/A 02/28/17 17:08 03/30/17 17:07 Miscellaneous Information (Pharmacist Discharge Med Rec Consult) 1 ea UD PRN N/A 02/28/17 17:00 03/30/17 16:59 Amiodarone HCl (Cordarone Tab) 200 mg DAILY PO 03/01/17 09:00 03/31/17 08:59 03/01/17 08:24 200 MG Atorvastatin Calcium (Lipitor Tab) 40 mg HS PO 02/28/17 21:00 03/30/17 20:59 02/28/17 21:02 40 MG Furosemide (Lasix Tab) 40 mg DAILY PO 03/01/17 09:00 03/31/17 08:59 03/01/17 08:25 40 MG Hydralazine HCl (Apresoline Tab) 12.5 mg TID PO 02/28/17 21:00 03/30/17 20:59 03/01/17 13:31 12.5 MG Isosorbide Mononitrate (Imdur Ext Rel Tab) 60 mg QAM PO 03/01/17 09:00 03/31/17 08:59 03/01/17 08:24 60 MG Metoprolol Succinate (Toprol Xl Tab) 25 mg DAILY PO 03/01/17 09:00 03/31/17 08:59 03/01/17 08:25 25 MG Warfarin Sodium (Coumadin Tab) 5 mg TODAY@1600 PO 03/01/17 16:00 03/01/17 18:00 Insulin Aspart (novoLOG ASPART) PLEASE USE ABDOMEN TO ADMINIS... 0000,0400 HI 03/02/17 00:00 04/01/17 00:00 Insulin Glargine (Lantus Solostar Pen) see protocol text ... 2100 HI 03/01/17 21:00 03/31/17 20:59 Physical Exam Vital Signs (Past 24 Hrs): Date Time Temp Pulse Resp B/P Pulse Ox O2 Delivery O2 Flow Rate FiO2 03/01/17 13:32 70 152/71 03/01/17 12:00 Room Air 03/01/17 09:10 Room Air 03/01/17 06:51 36.7 73 18 160/70 92 Room Air 03/01/17 04:00 Room Air 03/01/17 00:00 Room Air 02/28/17 23:45 36.5 68 18 185/71 98 Room Air 02/28/17 21:45 72 18 178/90 95 Room Air 02/28/17 20:22 36.7 62 17 191/60 91 02/28/17 20:15 62 191/60 91 Room Air 02/28/17 19:01 170/66 02/28/17 18:55 61 17 87 02/28/17 18:30 170/63 02/28/17 18:25 61 21 87 02/28/17 18:01 172/66 02/28/17 17:55 62 16 87 02/28/17 17:42 64 20 185/73 90 02/28/17 17:39 185/73 02/28/17 17:25 67 19 97 02/28/17 17:15 94 Nasal Cannula 2.0 02/28/17 17:06 94 Nasal Cannula 2.0 02/28/17 17:04 69 18 211/57 90 Room Air 02/28/17 17:02 211/57 02/28/17 16:55 66 18 85 02/28/17 16:32 192/103 02/28/17 16:25 71 28 91 02/28/17 16:10 67 20 163/87 88 Room Air 02/28/17 16:01 163/87 02/28/17 15:55 72 21 92 02/28/17 15:31 191/61 02/28/17 15:25 67 17 93 02/28/17 15:08 66 20 193/74 92 Room Air 02/28/17 15:07 193/74 02/28/17 14:55 59 11 86 Physical Exam: Constitutional: appearance nourished, healthy and normal Ears, Nose, Mouth and Throat: mucous membranes moist, no injection and skin normal, eyes normal Cardiovascular: normal S-1 and S-2 and regular rate and rhythm Respiratory: course breath sound Musculoskeletal: no peripheral edema and good distal pulses Skin: no stigmata of neurocutaneous disease noted and normal and intact Eyes: extraocular muscles intact (EOMI) and pupils equal, round and reactive to light (PERRL) NEUROLOGIC EXAMINATION: Mental status: Alert knows [facility], 2017, otis is president, can close eyes, stick out tongue and point to ceiling Oriented to person Speech fluent with no evidence of aphasia Cranial Nerves smile and eye brow raise symmetric, tongue midline Reflexes: Deep tendon reflexes were symmetrical and graded 2/5. Plantar responses were flexor. Sensory: no deficit to cool or vibration Coordination: finger to nose without bi pass or tremor Gait/Stance: sitting bedside just walked with PT (reported at baseline) Motor: Negative for pronator drift of out stretched arms with eyes closed. Strength: biceps triceps deltoids, hand furniture servicer 5/5 bilaterally, hip flex patellar flex ext plantar flex ext 5/5 bilaterally Laboratory Results Past 24 Hours: 03/01/17 05:31 Red Blood Count 3.62, Mean Corpuscular Volume 92.5, Mean Corpuscular Hemoglobin 31.5, Mean Corpuscular Hemoglobin Concent 34.0, Mean Platelet Volume 10.1, Neutrophils (%) (Auto) 74.3, Lymphocytes (%) (Auto) 12.9, Monocytes (%) (Auto) 8.8, Eosinophils (%) (Auto) 3.6, Basophils (%) (Auto) 0.2, Neutrophils # (Auto) 7.12, Lymphocytes # (Auto) 1.23, Monocytes # (Auto) 0.84, Eosinophils # (Auto) 0.34, Basophils # (Auto) 0.02 03/01/17 05:31 Test 03/01/17 05:31 03/01/17 11:55 White Blood Count 9.57 K/uL (4.8-10.8) Red Blood Count 3.62 M/uL (4.2-5.4) Hemoglobin 11.4 g/dL (12.0-16.0) Hematocrit 33.5 % (37-47) Mean Corpuscular Volume 92.5 fL (80-100) Mean Corpuscular Hemoglobin 31.5 pg (25-34) Mean Corpuscular Hemoglobin Concent 34.0 g/dl (32-36) Platelet Count 253 K/uL (130-400) Mean Platelet Volume 10.1 fL (7.4-10.4) Neutrophils (%) (Auto) 74.3 % Lymphocytes (%) (Auto) 12.9 % Monocytes (%) (Auto) 8.8 % Eosinophils (%) (Auto) 3.6 % Basophils (%) (Auto) 0.2 % Neutrophils # (Auto) 7.12 K/uL (1.4-6.5) Lymphocytes # (Auto) 1.23 K/uL (1.2-3.4) Monocytes # (Auto) 0.84 K/uL (0.11-0.59) Eosinophils # (Auto) 0.34 K/uL (0-0.5) Basophils # (Auto) 0.02 K/uL (0-0.2) RDW Standard Deviation 43.7 fL (36.4-46.3) RDW Coefficient of Variation 12.9 % (11.5-14.5) Immature Granulocyte % (Auto) 0.2 % Immature Granulocyte # (Auto) 0.02 K/uL (0.00-0.02) Prothrombin Time 16.8 SECONDS (9.0-12.0) Prothromb Time International Ratio 1.5 (0.9-1.1) Anion Gap 6.0 mmol/L (3-11) Est Creatinine Clear Calc Drug Dose 17.2 ml/min Estimated GFR () 25.0 Estimated GFR (Non- 21.6 BUN/Creatinine Ratio 19.5 (10-20) Estimated Average Glucose 255 mg/dl Hemoglobin A1c 10.5 % (4.5-5.6) Calcium Level 8.6 mg/dl (8.5-10.1) Triglycerides Level 76 mg/dl (0-150) Cholesterol Level 116 mg/dl (0-200) HDL Cholesterol 43 mg/dl LDL Cholesterol, Calculated 58 mg/dl VLDL Cholesterol, Calculated 15 mg/dl Cholesterol/HDL Ratio 2.7 Bedside Glucose 302 mg/dl (70-90) Imaging CT head- FINDINGS: No acute intracranial hemorrhage, midline shift or mass effect is present. Mild ventricular dilatation is likely due to central atrophy. The basilar cisterns are patent. There are no extra axial collections. There is equivocal loss of campo-white differentiation within the left insular cortex. Extensive white matter hypodensity suggests small vessel disease. There is no calvarial fracture. Visualized portions of the mastoid air cells and sinuses are clear. EEG -This EEG is essentially normal during wakefulness without evidence for focal or generalized encephalopathy and without evidence for potentially epileptogenic activity. Impression 89 year old female s/p starring spell without fall Plan 1. CT head findings on scan would be helpful to have MRI brain for further evaluation-patient is currently refusing 2. EEG- no seizure activity 3. event described sounds like low blood sugar recent changes in insulin with no food intact may have caused event. Would not recommend tight control 4. subtherapeutic INR 1.5 with history of a fib could have been small vessel stroke 5. PT/OT for discharge needs 6. blood pressure control -primary team 7. further recommendations to follow I have seen and discussed above patient with Dr Abdelrahman Lamar, neurology Patient seen and examined and interviewed and case discussed with Rosalva Ivan event of yesterday of uncertain cause but suspect either hypoglycemic event, hypotensive one or possibly transient ischemia of left heimisphere due to embolic shower and subtherapeutic inr eeg normal and clinically this was unlikely a seizure Patient is refusing mri so at this point would get inr up observe and do no further evaluation neuro cramer We will sign off for now unless she has further event or agrees to mri at which point we would certainly review the images. Abdelrahman Lamar MD
[2017-03-01] MEDS ORDERED: WARFARIN SOD 5 MG TAB PO SCH (16:00)
[2017-03-01] MEDS ORDERED: INSULIN GLARGINE SOLOSTAR 100 UNITS/ML 3 ML PEN SC SCH ×2 (21:00)
[2017-03-01] MEDS: ATORVASTATIN 40 MG TAB PO SCH (21:18)
[2017-03-02] MEDS: INSULIN ASPART 100 UNITS/ML 3 ML PEN SC SCH ×6 (00:18→21:03)
[2017-03-02 04:00] VITALS: BP 152/68; PULSE 65; TEMP 36.8; O2SAT 93
[2017-03-02 06:44] LABS: BASO % 0.5 %; BASO ABS # 0.04 K/uL (0-0.2); COMPLETE YES; EOS % 6.3 %; HEMATOCRIT 33.1 % (37-47); IG% 0.2 %; LYMPH % 13.4 %; LYMPH ABS # 1.19 K/uL (1.2-3.4); MEAN CELL VOLUME 92.7 fL (80-100); MEAN CORPUSCULAR HEMOGLOBIN 31.1 pg (25-34); MEAN CORPUSCULAR HGB CONC 33.5 g/dl (32-36); MEAN PLATELET VOLUME 10.1 fL (7.4-10.4); MONO % 9.6 %; PLATELET COUNT 236 K/uL (130-400); RED BLOOD COUNT 3.57 M/uL (4.2-5.4); WHITE BLOOD COUNT 8.88 K/uL (4.8-10.8)
[2017-03-02 06:50] LABS: INR 1.6 (0.9-1.1); PROTHROMBIN TIME (PATIENT) 17.9 SECONDS (9.0-12.0)
[2017-03-02 07:18] LABS: BUN/CREATININE RATIO 18.4 (10-20); CALCIUM 8.6 mg/dl (8.5-10.1); CREATININE 2.7 mg/dl (0.60-1.20); POTASSIUM 3.4 mmol/L (3.5-5.1)
[2017-03-02 07:19] VITALS: BP 162/70; PULSE 65; TEMP 36.6; O2SAT 91
[2017-03-02] MEDS: ASPIRIN 325 MG ECTAB PO SCH (08:21)
[2017-03-02] MEDS: METOPROLOL SUCC 25MG EXT REL TAB PO SCH (08:21)
[2017-03-02] MEDS: ISOSORBIDE MONONITRATE 30 MG TABCR PO SCH (08:21)
[2017-03-02] MEDS: AMIODARONE 200 MG TAB PO SCH (08:21)
--- NOTE | 2017-03-02 10:38 | Pharmacy Progress Note ---
Glycemic Control: Progress Nt Date of Service March 02, 2017. Scope Glycemic Pharmacist consulted by Dr Killian on 02/28/17 for glycemic control and to write orders per [facility] inpatient glycemic control protocol. Objective Accuchecks BSG (last 24hrs): Test 03/01/17 11:55 03/01/17 16:11 03/01/17 20:37 03/02/17 00:07 Bedside Glucose 302 mg/dl (70-90) 153 mg/dl (70-90) 148 mg/dl (70-90) 224 mg/dl (70-90) Test 03/02/17 04:14 03/02/17 06:07 03/02/17 07:33 Bedside Glucose 213 mg/dl (70-90) 160 mg/dl (70-90) Random Glucose 144 mg/dl (70-99) HbA1c: Test 03/01/17 05:31 Hemoglobin A1c 10.5 % (4.5-5.6) H Recent Pertinent Medications Outpatient Anti-diabetic Regimen: * Insulin degludec 22 units sq HS + Novolog 6 units BID with meals * A1c = 9.6 % 01/20/17, 10.5% on 03/01/17 The patient is currently receiving: * Basal insulin: Lantus 10 units every morning and 15 units at betime * Correctional Insulin: Novolog Correction per scale ACHS Goal Range: Low 140 mg/dL - High 180 mg/dL Correction Factor: 25 mg/dL/unit * Prandial insulin: Per carb ratio of 1 unit per 9 grams CHO consumed Risk Factors for Insulin Resistance: * Diet Assessment & Plan ASSESSMENT: * 89 yr old T2DM female with h/o of CKD stage IV admitted with right sided weakness, r/o stroke. * Patient is known to the Pharmacy Glycemic Service * Recent admission to [facility] 01/19/17-01/25/17 for CHF exacerbation * Total daily insulin requirements ranged from 22-40 units during past admission. * Patient required ~40% reduction in basal insulin while in house --> may have been d/t sulfonylurea on board with GERMAINE. * ADA & AACE recommend a goal blood sugar range 140-180 mg/dl for the majority of critically ill & non-critically ill patients. 03/02/17 * Pharmacy has been dosing insulin conservatively based on recent admission glycemic data from 01/2017 admission. * Patient has persistent hyperglycemia yesterday morning secondary to reduced basal insulin given 02/28 PM * Continue to titrate basal/bolus insulin regimen to meet goals of therapy * Patient is currently receiving an average of ~50 units of insulin per day * 25 units of basal insulin * 24 units of prandial/correctional insulin * BSGs ranging 148 - 302 over the past 24hrs * Anticipating insulin regimen will need the following changes: * AM Fasting BSG = 160mg/dl, this is in goal for patient based on age, co- morbidities, and baseline glycemic control. Pt received similar dosing to outpatient dosing but the dosing was split BID. Will change back to outpatient dosing, once daily at HS * Total daily dose = ~50 units, currently regimen is split 50%:50% basal: prandial to prevent hypo/hyperglycemia * Post-prandial BSGs are in range, no changes needed to CF/CR PLAN FOR INPATIENT GLYCEMIC CONTROL: * Basal insulin * Lantus 22 units SQ HS * Bolus insulin * NovoLog per scale ACHS * Goal Range: Low 140 mg/dL - High 180 mg/dL * Correction Factor: 25 mg/dL/unit * Nutritional / Prandial insulin per carb ratio of 1 unit per 9 grams CHO consumed DISCHARGE RECOMMENDATIONS -awaited - most likely can continue outpatient basal insulin dosing but NovoLog meal coverage may need increased * Please note that the plan above was derived based on current level of insulin resistance and hospital stress. These recommendations are appropriate for inpatient admission only. Plan of care upon discharge will need to be reassessed to avoid potential outpatient hypo/hyperglycemia. Thank you.
--- NOTE | 2017-03-02 11:29 | Progress Note ---
Medicine Progress Note Date & Time of Visit: March 02, 2017 at 11:23. Subjective patient see sitting up in bed, comfortable no recurrence of staring spells denies any focal neuro deficits no chest pain, dyspnea, dizziness, nausea no problems ambulating no other symptoms Objective Last 8 Hrs Date Time Temp Pulse Resp B/P Pulse Ox O2 Delivery O2 Flow Rate FiO2 03/02/17 08:00 Room Air 03/02/17 07:19 36.6 65 16 162/70 91 Room Air 03/02/17 04:00 36.8 65 18 152/68 93 Room Air 03/02/17 04:00 Room Air Physical Exam: General- oriented x 3, not in distress, speaks in sentences with no effort Eyes- anicteric Neck- no JVD, no adenopathy, Heart- regular rhythm; no murmur, normal rate Abdomen- normal bowel sounds, soft, nontender Extremities- no pretibial edema, no calf tenderness Neuro- alert, oriented x 3; no gross focal deficits Skin- warm & dry Laboratory Results: Last 24 Hours Test 03/01/17 11:55 03/01/17 16:11 03/01/17 20:37 03/02/17 00:07 Bedside Glucose 302 mg/dl 153 mg/dl 148 mg/dl 224 mg/dl Test 03/02/17 04:14 03/02/17 06:07 03/02/17 07:33 Bedside Glucose 213 mg/dl 160 mg/dl White Blood Count 8.88 K/uL Red Blood Count 3.57 M/uL Hemoglobin 11.1 g/dL Hematocrit 33.1 % Mean Corpuscular Volume 92.7 fL Mean Corpuscular Hemoglobin 31.1 pg Mean Corpuscular Hemoglobin Concent 33.5 g/dl Platelet Count 236 K/uL Mean Platelet Volume 10.1 fL Neutrophils (%) (Auto) 70.0 % Lymphocytes (%) (Auto) 13.4 % Monocytes (%) (Auto) 9.6 % Eosinophils (%) (Auto) 6.3 % Basophils (%) (Auto) 0.5 % Neutrophils # (Auto) 6.22 K/uL Lymphocytes # (Auto) 1.19 K/uL Monocytes # (Auto) 0.85 K/uL Eosinophils # (Auto) 0.56 K/uL Basophils # (Auto) 0.04 K/uL RDW Standard Deviation 44.9 fL RDW Coefficient of Variation 13.2 % Immature Granulocyte % (Auto) 0.2 % Immature Granulocyte # (Auto) 0.02 K/uL Prothrombin Time 17.9 SECONDS Prothromb Time International Ratio 1.6 Sodium Level 139 mmol/L Potassium Level 3.4 mmol/L Chloride Level 101 mmol/L Carbon Dioxide Level 31 mmol/L Anion Gap 7.0 mmol/L Blood Urea Nitrogen 50 mg/dl Creatinine 2.70 mg/dl Est Creatinine Clear Calc Drug Dose 12.7 ml/min Estimated GFR () 17.4 Estimated GFR (Non- 15.0 BUN/Creatinine Ratio 18.4 Random Glucose 144 mg/dl Calcium Level 8.6 mg/dl Assessment & Plan 89 female with history of CHF Diastolic type, Paroxysmal A fib on coumadin, DM, HTN, CKD 4 presenting with episode of staring/unresponsiveness yesterday. ALTERED MENTAL STATUS - possible CVA/TIA CT head: possible artifact vs. infarct left insular cortex already on Aspirin, Statin, Coumadin but INR subtherapeutic patient declining MRI Brain despite explanation re: indication Neurology consulted again discussed that MRI Brain is necessary to r/o stroke, patient still declining as test is too long discussed Neuro recommendations re: bridging with heparin or lovenox, patient also declining explained risk of possible increased risk of stroke with subtherapeutic INR, patient accepting and understanding will increase coumadin to 6mg today monitor INR - possible episode of A fib in RVR has history of paroxysmal a fib on coumadin INR subtherapeutic will increase coumadin to 6mg check INR daily continue Amiodarone and Metoprolol monitor in Tele - r/o Seizure EEG ordered: negative - from Hypertensive Urgency patient was also very upset yesterday will increase Hydralazine to 25mg BID for better BP control continue other medications for now ACUTE RENAL FAILURE ON CKD IV-at current baseline. - crea elevated further to 2.7 has been increasing since October - Lasix - will consult Nephrology Chronic diastolic heart failure - crea elevated further to 2.7 has been increasing since October - Lasix - will consult Nephrology T2DM -Lantus/ISS and carb coverage. - Pharmacy consult placed - may need to lower Novolog to 3 units BID Hypokalemia check Mg will replace monitor DVT prophy-Coumadin Dispo pending PT/OT recommends return home may benefit from Home Health RN Full Code again today,l discussed medical condition and plan of care at length and in detail with patient all questions answered she is agreeable and comfortable with plan of care Current Inpatient Medications: Current Inpatient Medications Medications (Trade) Dose Ordered Sig/Mustapha Route Start Time Stop Time Status Last Admin Dose Admin Acetaminophen (Tylenol Tab) 650 mg Q4H PRN PO 02/28/17 17:00 03/30/17 16:59 Ondansetron HCl (Zofran Inj) 4 mg Q6H PRN IV 02/28/17 17:00 03/30/17 16:59 Aspirin (Ecotrin Tab) 325 mg QAM PO 03/01/17 09:00 03/31/17 08:59 03/02/17 08:21 325 MG Polyethylene (Miralax Powder Packet) 17 gm DAILY PRN PO 02/28/17 17:00 03/30/17 16:59 Insulin Aspart (novoLOG ASPART) PLEASE USE ABDOMEN TO ADMINIS... ACHS SC 02/28/17 21:00 03/30/17 20:59 03/02/17 08:26 8 UNITS Glucose (Glucose 40% Gel) 15-30 GRAMS 15 GRAMS... UD PRN PO 02/28/17 17:00 03/30/17 16:59 Glucose (Glucose Chew Tab) 4-8 Tablets 4 Tabl... UD PRN PO 02/28/17 17:00 03/30/17 16:59 Dextrose (Dextrose 50% 50ML Syringe) 25-50ML OF 50% DW IV FOR... UD PRN IV 02/28/17 17:00 03/30/17 16:59 Glucagon (Glucagon Inj) 1 mg UD PRN SQ 02/28/17 17:00 03/30/17 16:59 Miscellaneous Information (Consult Glycemic Management Pharmacy) 1 ea UD N/A 02/28/17 17:08 03/30/17 17:07 Miscellaneous Information (Pharmacist Discharge Med Rec Consult) 1 ea UD PRN N/A 02/28/17 17:00 03/30/17 16:59 Amiodarone HCl (Cordarone Tab) 200 mg DAILY PO 03/01/17 09:00 03/31/17 08:59 03/02/17 08:21 200 MG Atorvastatin Calcium (Lipitor Tab) 40 mg HS PO 02/28/17 21:00 03/30/17 20:59 03/01/17 21:18 40 MG Hydralazine HCl (Apresoline Tab) 12.5 mg TID PO 02/28/17 21:00 03/30/17 20:59 03/02/17 08:21 12.5 MG Isosorbide Mononitrate (Imdur Ext Rel Tab) 60 mg QAM PO 03/01/17 09:00 03/31/17 08:59 03/02/17 08:21 60 MG Metoprolol Succinate (Toprol Xl Tab) 25 mg DAILY PO 03/01/17 09:00 03/31/17 08:59 03/02/17 08:21 25 MG Insulin Glargine (Lantus Solostar Pen) 22 unit HS SC 03/02/17 21:00 04/01/17 20:59 Potassium Chloride (Klor-Con M10) 40 meq ONE PO 03/02/17 10:45 04/01/17 10:44 UNV
[2017-03-02] MEDS ORDERED: SODIUM CHLORIDE 0.9% 500ML 500 ML IV SCH (11:30)
[2017-03-02 11:33] VITALS: BP 133/59; PULSE 56; TEMP 36.4; O2SAT 92
[2017-03-02] MEDS ORDERED: POTASSIUM CHLORIDE 10 MEQ TABCR PO ONE (12:30)
[2017-03-02] MEDS ORDERED: POTASSIUM CHLORIDE 20 MEQ/15 ML UDC PO ONE (14:00)
[2017-03-02 15:08] VITALS: BP 163/82; PULSE 61; TEMP 36.5; O2SAT 94
--- NOTE | 2017-03-02 15:40 | Nephrology Consultation ---
Nephrology Consultation Date & Providers Date of Consultation: March 02, 2017. Primary Care Provider: Adam Dominguez D.O. Referring Provider: Reason for Consultation Evaluation and management for acute kidney injury. History of Present Illness Santa is a 89-year-old female with past medical history significant for stage III CKD, hypertension, AFib on anticoagulation, diabetes, hypertension and diastolic CHF admitted to the hospital with an episode of possible TIA. Nephrologic consult was requested as patient developed acute kidney injury. Electronic medical records including labs and imaging are reviewed in detail during patient's visit. Santa apparently had an episode of via stroke-like symptom while she was out having breakfast with her family. She was brought to the hospital and admitted for further evaluation. CT on admission was equivocal and suggested possible acute ischemic stroke. was seen by Neurology and MRI was suggested however patient refused. Her symptoms seems to have resolved now and she denies any residual neurological deficit. she has AFib and her INR was subtherapeutic on admission. blood pressure was elevated on admission which now improved. On admission her creatinine was 2.1 which has been slowly worsening and was 2.7 this morning. She has been non-oliguric, other electrolyte seems to be stable. Has baseline stage III CKD and follows with Dr. Higgins. Record review shows B/ L creatinine has been around 1.1-1.2 until September of 2016. Since then renal function declined rather rapidly and creatinine staying close to 2.0. In January 2017 creatinine worsened to 2.5 which was thought to be due to high dose of diuretics and Lasix dose was decreased to 40 once a day. chronic kidney disease was thought to be secondary to hypertensive nephropathy and age-related nephron loss however, unclear etiology for rather rapid worsening over just few months. Hemoglobin also seems to have dropped significantly in just last few months. Has mild hypoalbuminemia however no hypercalcemia. Denies chronic NSAID use, nonsmoker no family history of chronic kidney disease. Has low grade proteinuria. Prior renal ultrasound was otherwise unremarkable. 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 Has history of breast cancer had left breast lumpectomy previously. Allergies Coded Allergies: Anastrozole (Verified Allergy, Severe, ANAPHYLAXIS, 02/28/17) edema face/tongue/lips Pioglitazone (Verified Allergy, Intermediate, HIVES, 02/28/17) Metformin (Verified Adverse Reaction, Intermediate, DIARRHEA, 02/28/17) Inpatient Medications Current Inpatient Medications Medications (Trade) Dose Ordered Sig/Mustapha Route Start Time Stop Time Status Last Admin Dose Admin Acetaminophen (Tylenol Tab) 650 mg Q4H PRN PO 02/28/17 17:00 03/30/17 16:59 Ondansetron HCl (Zofran Inj) 4 mg Q6H PRN IV 02/28/17 17:00 03/30/17 16:59 Polyethylene (Miralax Powder Packet) 17 gm DAILY PRN PO 02/28/17 17:00 03/30/17 16:59 Insulin Aspart (novoLOG ASPART) PLEASE USE ABDOMEN TO ADMINIS... ACHS SC 02/28/17 21:00 03/30/17 20:59 03/02/17 08:26 8 UNITS Glucose (Glucose 40% Gel) 15-30 GRAMS 15 GRAMS... UD PRN PO 02/28/17 17:00 03/30/17 16:59 Glucose (Glucose Chew Tab) 4-8 Tablets 4 Tabl... UD PRN PO 02/28/17 17:00 03/30/17 16:59 Dextrose (Dextrose 50% 50ML Syringe) 25-50ML OF 50% DW IV FOR... UD PRN IV 02/28/17 17:00 03/30/17 16:59 Glucagon (Glucagon Inj) 1 mg UD PRN SQ 02/28/17 17:00 03/30/17 16:59 Miscellaneous Information (Consult Glycemic Management Pharmacy) 1 ea UD N/A 02/28/17 17:08 03/30/17 17:07 Miscellaneous Information (Pharmacist Discharge Med Rec Consult) 1 ea UD PRN N/A 02/28/17 17:00 03/30/17 16:59 Amiodarone HCl (Cordarone Tab) 200 mg DAILY PO 03/01/17 09:00 03/31/17 08:59 03/02/17 08:21 200 MG Atorvastatin Calcium (Lipitor Tab) 40 mg HS PO 02/28/17 21:00 03/30/17 20:59 03/01/17 21:18 40 MG Hydralazine HCl (Apresoline Tab) 12.5 mg TID PO 02/28/17 21:00 03/02/17 14:00 03/02/17 08:21 12.5 MG Isosorbide Mononitrate (Imdur Ext Rel Tab) 60 mg QAM PO 03/01/17 09:00 03/31/17 08:59 03/02/17 08:21 60 MG Metoprolol Succinate (Toprol Xl Tab) 25 mg DAILY PO 03/01/17 09:00 03/31/17 08:59 03/02/17 08:21 25 MG Insulin Glargine (Lantus Solostar Pen) 22 unit HS SC 03/02/17 21:00 04/01/17 20:59 Potassium Chloride (Klor-Con M10) 40 meq TODAY@1230 ONCE PO 03/02/17 12:30 03/02/17 12:31 Hydralazine HCl (Apresoline Tab) 25 mg BID PO 03/02/17 21:00 04/01/17 20:59 Warfarin Sodium (Coumadin Tab) 6 mg TODAY@1600 PO 03/02/17 16:00 03/02/17 18:00 Aspirin 81 mg 81 mg QAM PO 03/03/17 09:00 04/02/17 08:59 Sodium Chloride (Nss 500ml) 500 ml @ 60 mls/hr Q8H20M IV 03/02/17 11:30 03/02/17 19:49 03/02/17 11:45 60 MLS/HR Family History Cardiac disorder FATHER MOTHER Social History Smoking Status: Never Smoker Smokeless Tobacco Use: No Alcohol Use: none Drug Use: none Marital Status: Housing Status: lives with family (lives with her two adult sons) Occupation: retired Review of Systems A complete review of systems was performed. Pertinent positives are noted above. All other systems are negative. Physical Exam Date Time Temp Pulse Resp B/P Pulse Ox O2 Delivery O2 Flow Rate FiO2 03/02/17 11:33 36.4 56 18 133/59 92 Room Air 03/02/17 08:00 Room Air 03/02/17 07:19 36.6 65 16 162/70 91 Room Air 03/02/17 04:00 36.8 65 18 152/68 93 Room Air 03/02/17 04:00 Room Air 03/02/17 00:00 Room Air 03/01/17 23:59 36.7 57 18 178/67 94 Room Air 03/01/17 20:19 36.2 52 20 168/60 90 03/01/17 20:00 Room Air 03/01/17 16:00 94 Room Air 03/01/17 15:41 36.7 61 18 174/81 94 Room Air 03/01/17 13:32 70 152/71 GENERAL: Elderly female, AAA x 3, pleasant, healthy-appearing, not in any distress. HEENT: Atraumatic, normocephalic. NECK: Supple, no JVD, no carotid bruit appreciated. ENT: No sinus tenderness MOUTH and THROAT: Moist oral mucosa, no oral ulcer or pharyngeal erythema RESPIRATORY: Normal breathing efforts, no accessory muscle use, clear to auscultation bilaterally, no wheezes or rales. CARDIOVASCULAR: S1, S2 normal, rate rhythm regular. ABDOMEN: Soft, nontender, positive bowel sound. MUSCULOSKELETAL: No CVA tenderness. No joint swelling, erythema or tenderness. Normal range of motion. SKIN: No skin rash EXTREMITY: No lower extremity edema NEURO: No gross focal neurological deficit, speech fluent. PSYCHIATRY: Normal mood and judgment Laboratory Results Last 24 Hours Test 03/01/17 16:11 03/01/17 20:37 03/02/17 00:07 03/02/17 04:14 Bedside Glucose 153 mg/dl 148 mg/dl 224 mg/dl 213 mg/dl Test 03/02/17 06:07 03/02/17 07:33 White Blood Count 8.88 K/uL Red Blood Count 3.57 M/uL Hemoglobin 11.1 g/dL Hematocrit 33.1 % Mean Corpuscular Volume 92.7 fL Mean Corpuscular Hemoglobin 31.1 pg Mean Corpuscular Hemoglobin Concent 33.5 g/dl Platelet Count 236 K/uL Mean Platelet Volume 10.1 fL Neutrophils (%) (Auto) 70.0 % Lymphocytes (%) (Auto) 13.4 % Monocytes (%) (Auto) 9.6 % Eosinophils (%) (Auto) 6.3 % Basophils (%) (Auto) 0.5 % Neutrophils # (Auto) 6.22 K/uL Lymphocytes # (Auto) 1.19 K/uL Monocytes # (Auto) 0.85 K/uL Eosinophils # (Auto) 0.56 K/uL Basophils # (Auto) 0.04 K/uL RDW Standard Deviation 44.9 fL RDW Coefficient of Variation 13.2 % Immature Granulocyte % (Auto) 0.2 % Immature Granulocyte # (Auto) 0.02 K/uL Prothrombin Time 17.9 SECONDS Prothromb Time International Ratio 1.6 Sodium Level 139 mmol/L Potassium Level 3.4 mmol/L Chloride Level 101 mmol/L Carbon Dioxide Level 31 mmol/L Anion Gap 7.0 mmol/L Blood Urea Nitrogen 50 mg/dl Creatinine 2.70 mg/dl Est Creatinine Clear Calc Drug Dose 12.7 ml/min Estimated GFR () 17.4 Estimated GFR (Non- 15.0 BUN/Creatinine Ratio 18.4 Random Glucose 144 mg/dl Calcium Level 8.6 mg/dl Magnesium Level 1.9 mg/dl Bedside Glucose 160 mg/dl Impression (1) GERMAINE (acute kidney injury) (2) CKD (chronic kidney disease), stage IV (3) Diastolic CHF (4) S/p excision of bladder tumor (5) Hypertension (6) TIA (transient ischemic attack) Santa is a 89-year-old female with history of stage 3 chronic kidney disease , hypertension, diabetes, diastolic CHF, history of breast cancer around bladder cancer before admit to the hospital with an episode of possible TIA. She was found to a have that acute kidney injury, On admission her creatinine was 2.2 which worsened to 2.7. Acute kidney injury is most likely hemodynamically mediated. Her baseline creatinine has been around 1.7-2.0, has low grade proteinuria. prior renal ultrasound was unremarkable. Record review shows or creatinine has been around 1.0 to 1.1 until September 2016 and since then her renal function has been rapidly worsening pain. chronic kidney disease was thought to be secondary to hypertensive nephropathy and age-related nephron loss however, unclear etiology for rather rapid worsening over just few months. Hemoglobin also seems to have dropped significantly in just last few months. Has mild hypoalbuminemia however no hypercalcemia. She has been on Lasix which was said decreased few weeks ago because of worsening renal function. Denies chronic NSAID use, nonsmoker no family history of chronic kidney disease. Recommendations --hold diuretics as patient does not seem to have any sign of volume overload --continue on the IV normal saline for now -- avoid nephrotoxins medications, dose medications for GFR less than 30 -- hold EVELIN-inhibitor/ARB for now --continue to monitor renal function with daily renal panel Thank you for allowing me to participate in your patient's care. It was a pleasure to see Santa This chart was completed utilizing [employer] Speech and voice recognition software. Grammatical errors, random word insertions, pronoun errors and incomplete sentences are occasional consequences of this system. Any questions or concerns about the content, text or information contained within the body of this dictation should be addressed directly to the physician for clarification.
[2017-03-02] MEDS ORDERED: WARFARIN SOD 6 MG TAB PO SCH (16:00)
[2017-03-02 20:21] VITALS: BP 158/57; PULSE 49; TEMP 36.4; O2SAT 94
[2017-03-02] MEDS: ATORVASTATIN 40 MG TAB PO SCH (20:58)
[2017-03-02] MEDS ORDERED: INSULIN GLARGINE SOLOSTAR 100 UNITS/ML 3 ML PEN SC SCH (21:00)
[2017-03-03] VITALS (7 sets, daily range): BP systolic 121–179; BP diastolic 57–69; PULSE 54–61; TEMP 36.6–36.7; O2SAT 92–95
[2017-03-03 06:01] LABS: BASO % 0.2 %; BASO ABS # 0.02 K/uL (0-0.2); COMPLETE YES; EOS % 7.1 %; HEMATOCRIT 31.3 % (37-47); IG% 0.1 %; LYMPH % 12.6 %; LYMPH ABS # 1.03 K/uL (1.2-3.4); MEAN CELL VOLUME 92.6 fL (80-100); MEAN CORPUSCULAR HEMOGLOBIN 31.4 pg (25-34); MEAN CORPUSCULAR HGB CONC 33.9 g/dl (32-36); MEAN PLATELET VOLUME 9.6 fL (7.4-10.4); MONO % 11.7 %; NEUT % 68.3 %; PLATELET COUNT 216 K/uL (130-400); RED BLOOD COUNT 3.38 M/uL (4.2-5.4)
[2017-03-03 06:20] LABS: PROTHROMBIN TIME (PATIENT) 21.9 SECONDS (9.0-12.0)
[2017-03-03 06:31] LABS: BUN/CREATININE RATIO 20.5 (10-20); CALCIUM 8.1 mg/dl (8.5-10.1); CREATININE 2.4 mg/dl (0.60-1.20); POTASSIUM 3.6 mmol/L (3.5-5.1)
[2017-03-03] MEDS ORDERED: ASPIRIN 81 MG ECTAB PO SCH (09:00)
[2017-03-03] MEDS: METOPROLOL SUCC 25MG EXT REL TAB PO SCH ×2 (09:00→09:18)
[2017-03-03] MEDS: ISOSORBIDE MONONITRATE 30 MG TABCR PO SCH (09:17)
[2017-03-03] MEDS: AMIODARONE 200 MG TAB PO SCH (09:26)
[2017-03-03] MEDS: INSULIN ASPART 100 UNITS/ML 3 ML PEN SC SCH ×3 (09:29→17:28)
--- NOTE | 2017-03-03 11:55 | Nephrology Progress Note ---
Nephrology Progress Note Date of Service March 03, 2017. Chief Complaint Evaluation and management for acute kidney injury. Ann Pratt was seen and examined in her room this morning. She is otherwise feeling fine. Denies any weakness or numbness in extremities. Speech fluent. Creatinine slightly improved to 2.4, has decent urine output. Blood pressure stable. Review of Systems A complete review of systems was performed. Pertinent positives are noted above. All other systems are negative. Vital Signs Last 8 Hrs Date Time Temp Pulse Resp B/P Pulse Ox O2 Delivery O2 Flow Rate FiO2 03/03/17 09:20 54 03/03/17 08:00 Room Air 03/03/17 07:25 36.6 57 18 148/60 94 Room Air 03/03/17 04:24 36.6 61 18 166/64 95 Room Air 03/03/17 04:00 Room Air I & O 24-Hour Column 03/03/17 08:00 Intake Total 1773 ml Output Total 1450 ml Balance 323 ml Last Recorded Weight Weight (Kilograms): 58.300 Physical Exam GENERAL: Elderly female, AAA x 3, pleasant, healthy-appearing, not in any distress. NECK: Supple, no JVD. RESPIRATORY: Normal breathing efforts, no accessory muscle use, clear to auscultation bilaterally, no wheezes or rales. CARDIOVASCULAR: S1, S2 normal, rate rhythm regular. EXTREMITY: No lower extremity edema NEURO: speech fluent. PSYCHIATRY: Normal mood and judgment Family History Cardiac disorder FATHER MOTHER Social History Smokeless Tobacco Use: No Alcohol Use: none Drug Use: none Marital Status: Housing Status: lives with family (lives with her two adult sons) Occupation: retired Laboratory Results Past 24 Hours 03/03/17 05:41 Red Blood Count 3.38, Mean Corpuscular Volume 92.6, Mean Corpuscular Hemoglobin 31.4, Mean Corpuscular Hemoglobin Concent 33.9, Mean Platelet Volume 9.6, Neutrophils (%) (Auto) 68.3, Lymphocytes (%) (Auto) 12.6, Monocytes (%) (Auto) 11.7, Eosinophils (%) (Auto) 7.1, Basophils (%) (Auto) 0.2, Neutrophils # (Auto ) 5.60, Lymphocytes # (Auto) 1.03, Monocytes # (Auto) 0.96, Eosinophils # (Auto ) 0.58, Basophils # (Auto) 0.02 03/03/17 05:41 Test 03/02/17 11:42 03/02/17 16:37 03/02/17 20:38 03/03/17 05:41 Bedside Glucose 192 mg/dl (70-90) 257 mg/dl (70-90) 241 mg/dl (70-90) White Blood Count 8.20 K/uL (4.8-10.8) Red Blood Count 3.38 M/uL (4.2-5.4) Hemoglobin 10.6 g/dL (12.0-16.0) Hematocrit 31.3 % (37-47) Mean Corpuscular Volume 92.6 fL (80-100) Mean Corpuscular Hemoglobin 31.4 pg (25-34) Mean Corpuscular Hemoglobin Concent 33.9 g/dl (32-36) Platelet Count 216 K/uL (130-400) Mean Platelet Volume 9.6 fL (7.4-10.4) Neutrophils (%) (Auto) 68.3 % Lymphocytes (%) (Auto) 12.6 % Monocytes (%) (Auto) 11.7 % Eosinophils (%) (Auto) 7.1 % Basophils (%) (Auto) 0.2 % Neutrophils # (Auto) 5.60 K/uL (1.4-6.5) Lymphocytes # (Auto) 1.03 K/uL (1.2-3.4) Monocytes # (Auto) 0.96 K/uL (0.11-0.59) Eosinophils # (Auto) 0.58 K/uL (0-0.5) Basophils # (Auto) 0.02 K/uL (0-0.2) RDW Standard Deviation 44.6 fL (36.4-46.3) RDW Coefficient of Variation 13.1 % (11.5-14.5) Immature Granulocyte % (Auto) 0.1 % Immature Granulocyte # (Auto) 0.01 K/uL (0.00-0.02) Prothrombin Time 21.9 SECONDS (9.0-12.0) Prothromb Time International Ratio 2.0 (0.9-1.1) Anion Gap 7.0 mmol/L (3-11) Est Creatinine Clear Calc Drug Dose 14.3 ml/min Estimated GFR () 20.1 Estimated GFR (Non- 17.3 BUN/Creatinine Ratio 20.5 (10-20) Calcium Level 8.1 mg/dl (8.5-10.1) Test 03/03/17 07:02 03/03/17 07:27 Bedside Glucose 62 mg/dl (70-90) 93 mg/dl (70-90) Allergies Coded Allergies: Anastrozole (Verified Allergy, Severe, ANAPHYLAXIS, 02/28/17) edema face/tongue/lips Pioglitazone (Verified Allergy, Intermediate, HIVES, 02/28/17) Metformin (Verified Adverse Reaction, Intermediate, DIARRHEA, 02/28/17) Medications Current Inpatient Medications Medications (Trade) Dose Ordered Sig/Mustapha Route Start Time Stop Time Status Last Admin Dose Admin Acetaminophen (Tylenol Tab) 650 mg Q4H PRN PO 02/28/17 17:00 03/30/17 16:59 Ondansetron HCl (Zofran Inj) 4 mg Q6H PRN IV 02/28/17 17:00 03/30/17 16:59 Polyethylene (Miralax Powder Packet) 17 gm DAILY PRN PO 02/28/17 17:00 03/30/17 16:59 Insulin Aspart (novoLOG ASPART) PLEASE USE ABDOMEN TO ADMINIS... ACHS SC 02/28/17 21:00 03/30/17 20:59 03/03/17 09:29 1 UNITS Glucose (Glucose 40% Gel) 15-30 GRAMS 15 GRAMS... UD PRN PO 02/28/17 17:00 03/30/17 16:59 Glucose (Glucose Chew Tab) 4-8 Tablets 4 Tabl... UD PRN PO 02/28/17 17:00 03/30/17 16:59 Dextrose (Dextrose 50% 50ML Syringe) 25-50ML OF 50% DW IV FOR... UD PRN IV 02/28/17 17:00 03/30/17 16:59 Glucagon (Glucagon Inj) 1 mg UD PRN SQ 02/28/17 17:00 03/30/17 16:59 Miscellaneous Information (Consult Glycemic Management Pharmacy) 1 ea UD N/A 02/28/17 17:08 03/30/17 17:07 Miscellaneous Information (Pharmacist Discharge Med Rec Consult) 1 ea UD PRN N/A 02/28/17 17:00 03/30/17 16:59 Amiodarone HCl (Cordarone Tab) 200 mg DAILY PO 03/01/17 09:00 03/31/17 08:59 03/03/17 09:26 200 MG Atorvastatin Calcium (Lipitor Tab) 40 mg HS PO 02/28/17 21:00 03/30/17 20:59 03/02/17 20:58 40 MG Isosorbide Mononitrate (Imdur Ext Rel Tab) 60 mg QAM PO 03/01/17 09:00 03/31/17 08:59 03/03/17 09:17 60 MG Metoprolol Succinate (Toprol Xl Tab) 25 mg DAILY PO 03/01/17 09:00 03/31/17 08:59 03/02/17 08:21 25 MG Insulin Glargine (Lantus Solostar Pen) 22 unit HS SC 03/02/17 21:00 04/01/17 20:59 03/02/17 21:04 22 UNIT Hydralazine HCl (Apresoline Tab) 25 mg BID PO 03/02/17 21:00 04/01/17 20:59 03/03/17 09:25 25 MG Aspirin (Ecotrin Tab) 81 mg QAM PO 03/03/17 09:00 04/02/17 08:59 03/03/17 09:27 81 MG Impression (1) GERMAINE (acute kidney injury) (2) CKD (chronic kidney disease), stage IV (3) Diastolic CHF (4) S/p excision of bladder tumor (5) Hypertension (6) TIA (transient ischemic attack) Santa is a 89-year-old female with history of stage 3 chronic kidney disease , hypertension, diabetes, diastolic CHF, history of breast cancer around bladder cancer before admit to the hospital with an episode of possible TIA. She was found to a have that acute kidney injury, On admission her creatinine was 2.2 which worsened to 2.7. Acute kidney injury is most likely hemodynamically mediated. Her baseline creatinine has been around 1.7-2.0, has low grade proteinuria. prior renal ultrasound was unremarkable. Record review shows or creatinine has been around 1.0 to 1.1 until September 2016 and since then her renal function has been rapidly worsening pain. chronic kidney disease was thought to be secondary to hypertensive nephropathy and age-related nephron loss however, unclear etiology for rather rapid worsening over just few months. Hemoglobin also seems to have dropped significantly in just last few months. Has mild hypoalbuminemia however no hypercalcemia. She has been on Lasix which was said decreased few weeks ago because of worsening renal function. Denies chronic NSAID use, nonsmoker no family history of chronic kidney disease. Recommendations --Cr slightly improved --OK to be discharged with close out pt lab monitoring. Renal panel on Wednesday, patient has F/U scheduled with Dr. Higgins on March 24 and advise patient to get lab done before visit. Labs were ordered in EMR. --continue to hold diuretics, ACEI/ARB on discharge, advised to drink plenty of liquids. -- avoid nephrotoxins medications
--- NOTE | 2017-03-03 14:42 | Pharmacy Progress Note ---
Glycemic Control: Progress Nt Date of Service March 03, 2017. Scope Glycemic Pharmacist consulted by Dr Killian on 02/28/17 for glycemic control and to write orders per [facility] inpatient glycemic control protocol. Objective Accuchecks BSG (last 24hrs): Test 03/02/17 16:37 03/02/17 20:38 03/03/17 05:41 03/03/17 07:02 Bedside Glucose 257 mg/dl (70-90) 241 mg/dl (70-90) 62 mg/dl (70-90) Random Glucose 62 mg/dl (70-99) Test 03/03/17 07:27 03/03/17 11:38 Bedside Glucose 93 mg/dl (70-90) 167 mg/dl (70-90) Laboratory Data (last 24hrs) Test 03/03/17 05:41 Anion Gap 7.0 mmol/L BUN/Creatinine Ratio 20.5 Blood Urea Nitrogen 49 mg/dl Creatinine 2.40 mg/dl Potassium Level 3.6 mmol/L Sodium Level 140 mmol/L White Blood Count 8.20 K/uL Red Blood Count 3.38 M/uL Hemoglobin 10.6 g/dL Hematocrit 31.3 % Mean Corpuscular Volume 92.6 fL Mean Corpuscular Hemoglobin 31.4 pg Mean Corpuscular Hemoglobin Concent 33.9 g/dl Platelet Count 216 K/uL Mean Platelet Volume 9.6 fL Neutrophils (%) (Auto) 68.3 % Lymphocytes (%) (Auto) 12.6 % Monocytes (%) (Auto) 11.7 % Eosinophils (%) (Auto) 7.1 % Basophils (%) (Auto) 0.2 % Neutrophils # (Auto) 5.60 K/uL Lymphocytes # (Auto) 1.03 K/uL Monocytes # (Auto) 0.96 K/uL Eosinophils # (Auto) 0.58 K/uL Basophils # (Auto) 0.02 K/uL HbA1c: Test 03/01/17 05:31 Hemoglobin A1c 10.5 % (4.5-5.6) H Recent Pertinent Medications Outpatient Anti-diabetic Regimen: * Degludec 22 unite HS + Novolog 6 units BID The patient is currently receiving: * Basal insulin: Lantus 22 units every 24 hours at bedtime * Correctional Insulin: Novolog Correction per scale ACHS Goal Range: Low 140 mg/dL - High 180 mg/dL Correction Factor: 25 mg/dL/unit * Prandial insulin: Per carb ratio of 1 unit per 9 grams CHO consumed Risk Factors for Insulin Resistance: * Diet: type 2 diabetic diet Assessment & Plan ASSESSMENT: * ADA & AACE recommend a goal blood sugar range 140-180 mg/dl for the majority of critically ill & non-critically ill patients. However, more stringent targets may be selected in individual cases. * Ms Stone was admitted on 02/28/17 with R sided weakness. She has poorly controlled diabetes with an A1C of 10.5% as an outpatient. * Over the past 24 hours her blood sugars have ranged from 62 (treated with OJ) to 257 mg/dL. Her fasting blood sugar was low today at 62 mg/dL which indicates that perhaps 22 units of basal insulin is too much (blood sugar last night was 241 mg/dL but then fell to 62 mg/dL this morning). Therefore will reduce dose slightly to 20 units. Her Novolog coverage was loosen slightly today due to the lower blood sugar. PLAN FOR INPATIENT GLYCEMIC CONTROL: * DECREASING Lantus to 20 units SQ HS * LOOSEN correction factor to 30 mg/dl/unit * LOOSEN carb ratio to 1 unit per 10 grams CHO consumed * Continuing goal range of Low 140 mg/dL - High 180 mg/dL RECOMMENDATIONS FOR DISCHARGE: * Per the ADA, a suggested targeted A1C for this type of patient is around 8-8.5 %. The patient has not currently met these goals. I would recommend close follow up with her PCP to ensure compliance first and then perhaps an increase in insulin. * Please note that the plan above was derived based on current level of insulin resistance and hospital stress. These recommendations are appropriate for inpatient admission only. Plan of care upon discharge will need to be reassessed to avoid potential outpatient hypo/hyperglycemia. Thank you.
[2017-03-03] MEDS ORDERED: WARFARIN SOD 2 MG TAB PO SCH ×2 (16:00)
--- NOTE | 2017-03-03 17:24 | Discharge Instructions ---
Discharge Instructions Date of Service March 03, 2017. 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 Instructions / Follow-Up Instructions / Follow-Up HOSPITAL FOLLOW UP WITH DR BURTNO ON Wednesday03/09/17 @ 1: 30 PM BLOOD PRESSURE MEDICATION : HYDRALAZINE INCREASED TO 25 MG TWICE DAILY INSULIN LANTUS ( LONG ACTING ) DOSE REDUCED TO 20 U AT NIGHT ( PREVIOUSLY WAS 22 U ) PLEASE CHECK BLOOD SUGARS 4 TIMES DAILY BEFORE BREAKFAST ( FASTING ) , BEFORE LUNCH , BEFORE DINNER , AT BEDTIME DO NOT GIVE YOURSELF LANTUS INSULIN AT NIGHT IF YOUR BLOOD SUGAR IS LESS THAN [address] GAVIN IN OFFICE PER SCHEDULED APPOINTMENT ON 03/24/17 LAB WORK ; BASIC METABOLIC PANEL ON Wednesday03/05/17 DO NOT TAKE LASIX , TILL YOUR RENAL FUNCTION IMPROVES AND INSTRUCTED BY YOUR KIDNEY SPECIALIST AFTER REVIEWING YOUR LAB WORK DO NOT TAKE MOTRIN, ALEVE , NAPROXEN , IBUPROFEN . ADVIL -NO NSAID'S-WILL CAUSE MORE HARM TO YOUR KIDNEYS DRINK PLENTY OF FLUID PLEASE FOLLOWUP WITH COUMADIN CLINIC FOR CLOSE MONITORING OF PT/INR YOUR INR NEEDS TO BE ABOVE 2 TO PREVENT ANY FUTURE STROKE YOUR COUMADIN DOSE BEEN RESUMED BEFORE LAB WORK : PT/INR ON Wednesday03/05/17 PLEASE RETURN TO ED WITH ANY SYMPTOM OF VISUAL PROBLEM , WEAKNESS OR ARM OF LEGS , OR SIMILAR SYMPTOM THAT HAPPENED PRIOR TO THIS ADMISSION THESE COULD BE SIGN OF ACUTE STROKE Risk Factors for Stroke: You can reduce your chances of stroke by working with your medical provider to adopt a healthy lifestyle. Some specific ways to lower your chance of stroke are: * If you are a smoker, now is the time to stop smoking cigarettes * If you are diabetic, improve the control of your blood sugars * Avoid excessive amounts of alcohol * Control high blood pressure * Lose weight if you are overweight * Be sure to lead an active lifestyle * Eat a healthy diet low in salt, cholesterol and fat You should know about other risk factors for stroke that you are unable to control. These include: * Age 55 years or older * Male gender * Certain racial groups: , or / * Family History of Stroke, Mini stroke or Heart Attack * Sickle Cell Disease Follow Up: It is important for you to keep your follow up appointments with your medical provider. Current Hospital Diet Patient's current hospital diet: AHA Diet (Heart Healthy), Diabetes Type 2 Diet Discharge Diet Recommended Diet: AHA Diet (Heart Healthy), Diabetes Type 2 Diet Pending Studies Studies pending at discharge: yes List of pending studies: LAB WORK : BASIC METABOLIC PANEL /PT/INR ON Wednesday03/05/17 Laboratory Results Hemoglobin A1c Test 03/01/17 05:31 Range/Units Estimated Average Glucose 255 mg/dl Hemoglobin A1c 10.5 H 4.5-5.6 % Lipid Panel Test 03/01/17 05:31 Range/Units Triglycerides Level 76 0-150 mg/dl Cholesterol Level 116 0-200 mg/dl HDL Cholesterol 43 mg/dl Cholesterol/HDL Ratio 2.7 LDL Cholesterol, Calculated 58 mg/dl Medical Emergencies . Who to Call and When: Medical Emergencies: Call 911 immediately if you experience any of the following warning signs and symptoms of Stroke: * Sudden numbness or weakness of the face, arm or leg, especially on one side of the body * Sudden confusion, trouble speaking or understanding * Sudden trouble seeing in one or both eyes * Sudden trouble walking, dizziness, loss of balance or coordination * Sudden severe headache with no cause Do not delay calling 911 if you experience any warning signs or symptoms of a stroke. Delay in seeking medical attention may affect what treatments can be given to you. . Non-Emergent Contact Non-Emergency issues call your: Primary Care Provider . . "Provider Documentation" section prepared by Analia Brown. . Stroke Core Measures Reason no t-PA for Stroke: Treatment not indicated Reason no antithrom by day 2: Treatment provided - N/A Reason no antithrom at D/C: Treatment provided - N/A Reason no statin at D/C: Treatment provided - N/A Reason no anticoag w/a fib: Treatment provided - N/A VTE Core Measure Inpt VTE Proph given/why not?: Warfarin (Coumadin), SCD's [place] Drug Monitoring Program Search Results: no issues identified
[2017-03-03] MEDS ORDERED: INSDGIPEN SC (17:33)
[2017-03-03] MEDS ORDERED: APR25 PO (17:33)
--- NOTE | 2017-03-03 18:10 | Discharge Summary ---
Discharge Summary Date of Service March 03, 2017. 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 No acute intracranial hemorrhage or mass effect. 2. Possible loss of campo-white differentiation within the left insular cortex. This may be artifactual although an acute infarct could have this appearance. EEG : No seizure activity noted Consultations: Nephrology Dr Dyer Neurology Dr Lamar Pending Studies/Follow-Up: LAB WORK : BASIC METABOLIC PANEL /PT/INR ON Wednesday03/05/17 PLEASE REFER TO DISCHARGE INSTRUCTIONS FOR FURTHER DETAIL Medication Reconciliation New Medications: Hydralazine Hcl (Apresoline) 25 Mg Tab 25 MG PO BID for 30 Days, #60 TAB 2 Refills Insulin Glargine (Lantus Solostar) 100 Unit/Ml Inj 20 UNIT SC HS for 30 Days, #1 PEN 3 Refills Continued Medications: Amiodarone Hcl (Cordarone) 200 Mg Tab 200 MG PO DAILY, TAB Aspirin (Aspirin Ec) 81 Mg Tab 81 MG PO DAILY Atorvastatin (Lipitor) 40 Mg Tab 40 MG PO HS, TAB Insulin Aspart (Novolog Flexpen) 100 Units/Ml Inj 6 UNITS SQ BIDM Isosorbide Mononitrate Ext Rel (Imdur Ext Rel) 30 Mg Tabcr 60 MG PO QAM, TAB Metoprolol Succ (Toprol Xl) (Toprol-Xl) 25 Mg Tabcr 25 MG PO DAILY, #30 TAB Polyethylene (Miralax) 17 Gm Pow 17 GM PO DAILY PRN for Constipation, #30 Warfarin Sod (Coumadin) 4 Mg Tab 1 TAB PO 5XWK everyday but Sat & Wed Warfarin Sod (Coumadin) 2 Mg Tab 1 TAB PO 2XWK Sat & Wed Discontinued Medications: Furosemide (Furosemide) 40 Mg Tab 40 MG PO DAILY Hydralazine Hcl (Apresoline) 25 Mg Tab 12.5 MG PO TID for 30 Days, #45 TAB Insulin Degludec (Tresiba Flextouch) 100 Unit/Ml Inj 22 UNITS SC HS Referrals At Discharge Follow up Referrals: Executive Relations Specialist Referral - 03/24/17 with Josep Gavin M.D. Physician Referral - 03/09/17 with Sulman,Adam A., D.O. Admission Information HPI (per Admitting provider): 89 yo F with atrial fibrillation who is subtherapeutic on her coumadin (INR 1.7 ) presented to the ER via EMS after a staring spell while eating at the [employer] today for kym. She states that she had a recent increase in her long- acting insulin from 18 Units to 22 Units and an increase in her Novolog from 4 Units twice daily with meals to 6 Units twice daily with meals. This occurred on 02/18. She notably was taken off Amaryl and placed on Novolog just on 02/12 and has had elevated sugars since then, followed by outpatient Case Management. She states that this morning, she took her Novolog, but then didn't eat for "quite a while" while she was waiting in line at the [employer] and even after this when they were waiting for food to arrive. She reports eating about half her breakfast and then doesn't remember what happened after this. Her son is present at the bedside and states that she looked as if she were staring off into space sitting up with her eyes open for about 5-10 minutes. She was unresponsive to people trying to get her attention and then spontaneously was fine and talking again. She has no recollection of the event, and states to me that she had no prodrome of feeling ill, although other reports state she reported some nausea. Her son states that his is a nurse and noted the patient to have a thready weak pulse, with clammy skin and diaphoresis with pallor. The patient began trying to eat again and resume breakfast as though nothing happened, however, she was stopped from taking anything PO by family members. On arrival to the ER CT head revealed no acute hemorrhage with some suspicious findings for artifact vs acute stroke. Her exam is nonfocal. BP was elevated into the 190s systolic. The patient's son denies seeing any focal facial droop, just noticed that her mouth was open and she wouldn't close it so was drooling. She has been ambulating without difficulty and swallowing without difficulty since the event. The patient herself is concerned with being admitted and having a bunch of tests run on her. She is currently declining a peripheral IV because of "inexperienced people attempting this in the past". She is OK if IV team or anesthesia tries. She is also declining an MRI at this time. Physical Exam (per Admitting): GEN: WNWD, in no acute distress, alert and appropriate HEENT: NC/AT, PERRL, normal sclerae, normal conjunctivae, fundoscopic exam was normal, EOMI, pharynx was non-acute, mucous membranes were moist CARDIO: reg rate, S1/2 heard without m/g/r LUNGS: CTA bilaterally, no crackles, rales or wheezes, good diaphragmatic excursion ABD: soft, non-tender, non-distended, no rebound or guarding, +BS EXTREMITY: RP and DP palpable 2+ bilat, no LE swelling or edema, extremities are warm and well-perfused, stockings in place. NEURO: CN 2-12 intact, sensation intact throughout, knee reflex 2/4 bilateral. Moves all extremities equally. Gait was not assessed, but ER doc reports ambulates well to bathroom MUSC: 5/5 strength throughout, no focal deficits SKIN: warm and dry Hospital Course Feels fine , no dysarthria , no weakness or paresthesia, able to ambulate in hallway with walker , with out any assistance, no gait disturbance noted , at baseline functional status very eager to be discharged home today , arrangements made for home health visiting nurse through [facility] vital sighs : Last 8 Hrs Date Time Temp Pulse Resp B/P Pulse Ox O2 Delivery O2 Flow Rate FiO2 03/03/17 17:45 36.7 61 18 92 Room Air 03/03/17 16:10 Room Air 03/03/17 15:42 36.7 61 18 179/69 92 Room Air 03/03/17 12:30 Room Air 03/03/17 11:34 36.6 57 20 121/57 94 Room Air P/E: GEN : no sign of distress HEENT : sclera non icteric HEART : regular S1/S2 LUNGS: CTA ABDOMEN : soft ,non tender EXTREMITY : no lower ext edema , no rash or deformity NEURO: AAo x3, speech fluent , no focal neurological deficit A/P ; POSSIBLE TIA: 89 female with history of CHF Diastolic type, Paroxysmal A fib on Coumadin, DM, HTN, CKD 4 presented with episode of staring/unresponsiveness yesterday. - possible CVA/TIA-risk factor Hx of Sara with sub therapeutic INR CT head: possible artifact vs. infarct left insular cortex Pt refused to have MRI of brain done appreciate input form Neurology EEG ordered -normal study -no evidence of seizure activity -pt already on Aspirin, Statin Coumadin resumed , dose increased ( pt refused to have bridge therapy with IV heparin or Lovenox ) ; INR therapeutic~ 2 HX OF PAROXYSMAL AFIB : has history of paroxysmal a fib on Coumadin presented with INR subtherapeutic 1. 7 INR improved to 2 after increasing Coumadin to 6mg repeat INR check on Wednesday03/05/19 continue Amiodarone and Metoprolol HTN : Presented with Hypertensive Urgency increased Hydralazine to 25mg BID for better BP control scripts for new medications sent to pharmacy pt will continue to follow up with her family Physician for further management of BP control ACUTE RENAL FAILURE ON CKD IV- - creatinine elevated further to 2.7 has been increasing since October - HOLD Lasix - appreciate consult form Nephrology -possible hypertensive nephropathy causing progressive steady decline in her renal function -pt is asked not to take Lasix , not on ACEI /ARB -repeat Lab work : BMP on Wednesday03/05/17 -pt is asked to avoid NSAID's -has scheduled nephrology followup with Dr Craven on March 24 -will have repeat lab checked prior to that appointment CHRONIC DIASTOLIC HEART FAILURE -compensated ,no evidence of vol overload -Lasix kept on hold for above TYPE 2 DM : -Hb A1C > 10 -on Lantus 22 U HS /NovoLog -hypoglycemic episode in AM BSG 64 required OJ -Lantus dose decreased to 20 U HS pt is asked to check BSG at least 4 times daily -not willing to do so many BSG checks ( hates needles , and pricking herself ) asked to check BSG at lease twice daily -Fasting and before dinner /before taking Lantus not to take Insulin if BSG < 100 pt is asked to follow up with her family physician for diabetic management DVT prophy-on Coumadin INR therapeutic DISPOSITION ; had PT/OT eval recommend return home with home health has good family support Discharge home today Medicine follow up with Dr Dominguez Total time spent on discharge = 40 MINS This includes examination of the patient, discharge planning, medication reconciliation, and communication with other providers. Discharge Instructions DI: Stroke v4 Discharge Instructions Date of Service March 03, 2017. 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 Instructions / Follow-Up Instructions / Follow-Up HOSPITAL FOLLOW UP WITH DR DOMINGUEZ ON Wednesday03/09/17 @ 1: 30 PM BLOOD PRESSURE MEDICATION : HYDRALAZINE INCREASED TO 25 MG TWICE DAILY INSULIN LANTUS ( LONG ACTING ) DOSE REDUCED TO 20 U AT NIGHT ( PREVIOUSLY WAS 22 U ) PLEASE CHECK BLOOD SUGARS 4 TIMES DAILY BEFORE BREAKFAST ( FASTING ) , BEFORE LUNCH , BEFORE DINNER , AT BEDTIME DO NOT GIVE YOURSELF LANTUS INSULIN AT NIGHT IF YOUR BLOOD SUGAR IS LESS THAN [address] GAVIN IN OFFICE PER SCHEDULED APPOINTMENT ON 03/24/17 LAB WORK ; BASIC METABOLIC PANEL ON Wednesday03/05/17 DO NOT TAKE LASIX , TILL YOUR RENAL FUNCTION IMPROVES AND INSTRUCTED BY YOUR KIDNEY SPECIALIST AFTER REVIEWING YOUR LAB WORK DO NOT TAKE MOTRIN, ALEVE , NAPROXEN , IBUPROFEN . ADVIL -NO NSAID'S-WILL CAUSE MORE HARM TO YOUR KIDNEYS DRINK PLENTY OF FLUID PLEASE FOLLOWUP WITH COUMADIN CLINIC FOR CLOSE MONITORING OF PT/INR YOUR INR NEEDS TO BE ABOVE 2 TO PREVENT ANY FUTURE STROKE YOUR COUMADIN DOSE BEEN RESUMED BEFORE LAB WORK : PT/INR ON Wednesday03/05/17 PLEASE RETURN TO ED WITH ANY SYMPTOM OF VISUAL PROBLEM , WEAKNESS OR ARM OF LEGS , OR SIMILAR SYMPTOM THAT HAPPENED PRIOR TO THIS ADMISSION THESE COULD BE SIGN OF ACUTE STROKE Risk Factors for Stroke: You can reduce your chances of stroke by working with your medical provider to adopt a healthy lifestyle. Some specific ways to lower your chance of stroke are: * If you are a smoker, now is the time to stop smoking cigarettes * If you are diabetic, improve the control of your blood sugars * Avoid excessive amounts of alcohol * Control high blood pressure * Lose weight if you are overweight * Be sure to lead an active lifestyle * Eat a healthy diet low in salt, cholesterol and fat You should know about other risk factors for stroke that you are unable to control. These include: * Age 55 years or older * Male gender * Certain racial groups: , or / * Family History of Stroke, Mini stroke or Heart Attack * Sickle Cell Disease Follow Up: It is important for you to keep your follow up appointments with your medical provider. Current Hospital Diet Patient's current hospital diet: AHA Diet (Heart Healthy), Diabetes Type 2 Diet Discharge Diet Recommended Diet: AHA Diet (Heart Healthy), Diabetes Type 2 Diet Pending Studies Studies pending at discharge: yes List of pending studies: LAB WORK : BASIC METABOLIC PANEL /PT/INR ON Wednesday03/05/17 Laboratory Results Hemoglobin A1c Test 03/01/17 05:31 Range/Units Estimated Average Glucose 255 mg/dl Hemoglobin A1c 10.5 H 4.5-5.6 % Lipid Panel Test 03/01/17 05:31 Range/Units Triglycerides Level 76 0-150 mg/dl Cholesterol Level 116 0-200 mg/dl HDL Cholesterol 43 mg/dl Cholesterol/HDL Ratio 2.7 LDL Cholesterol, Calculated 58 mg/dl Medical Emergencies . Who to Call and When: Medical Emergencies: Call 911 immediately if you experience any of the following warning signs and symptoms of Stroke: * Sudden numbness or weakness of the face, arm or leg, especially on one side of the body * Sudden confusion, trouble speaking or understanding * Sudden trouble seeing in one or both eyes * Sudden trouble walking, dizziness, loss of balance or coordination * Sudden severe headache with no cause Do not delay calling 911 if you experience any warning signs or symptoms of a stroke. Delay in seeking medical attention may affect what treatments can be given to you. . Non-Emergent Contact Non-Emergency issues call your: Primary Care Provider . . "Provider Documentation" section prepared by Analia Brown. . Stroke Core Measures Reason no t-PA for Stroke: Treatment not indicated Reason no antithrom by day 2: Treatment provided - N/A Reason no antithrom at D/C: Treatment provided - N/A Reason no statin at D/C: Treatment provided - N/A Reason no anticoag w/a fib: Treatment provided - N/A VTE Core Measure Inpt VTE Proph given/why not?: Warfarin (Coumadin), SCD's [place] Drug Monitoring Program Search Results: no issues identified Additional Copies To Adam Dominguez D.O. Donelan, Stephen M., M.D.
[2017-03-03] MEDS ORDERED: INSULIN GLARGINE SOLOSTAR 100 UNITS/ML 3 ML PEN SC SCH (21:00)
[2017-06-28] MEDS ORDERED: APR50 PO (14:32)
[2017-06-28] MEDS ORDERED: INSDGIPEN SC (14:32)
[2017-06-28] MEDS ORDERED: TPRSR25 PO (14:32)
[2017-08-09] MEDS ORDERED: ISM20 PO (10:26)
[2017-08-09] MEDS ORDERED: FERR325T5 PO (10:26)
[2017-08-09] MEDS ORDERED: NVLG SC (10:26)
[2017-08-09] MEDS ORDERED: FRS/40 PO (10:26)
[2017-08-09] MEDS ORDERED: LEVO50TA6 PO (10:26)
[2017-08-09] MEDS ORDERED: INSU1INJ33 SC (10:26)
[2017-08-09] MEDS ORDERED: POTASSIUM PO (10:26)
[2017-08-09] MEDS ORDERED: HYDR-4717 PO (10:26)
[2017-08-09] MEDS ORDERED: METO25TA3 PO (10:35)
== END 2017-03-03 18:45 | disposition home health service (06) | DRG 683 ==
LOC: ENRESERVTM → ENRESERVDT → CANRESERV → EDBD 12:55 → C.EDA 12:56 → C.MED 17:50
PROVIDERS: ADMIT Hospitalist; ATTEND Hospitalist
DX: N17.9 Acute kidney failure, unspecified (principal); I50.32 Chronic diastolic (congestive) heart failure; I13.0 Hypertensive heart and chronic kidney disease with heart failure and stage 1 through stage 4 chronic kidney disease, or unspecified chronic kidney disease; G45.9 Transient cerebral ischemic attack, unspecified; N18.4 Chronic kidney disease, stage 4 (severe); I48.0 Paroxysmal atrial fibrillation; E11.22 Type 2 diabetes mellitus with diabetic chronic kidney disease; E87.6 Hypokalemia; Z79.82 Long term (current) use of aspirin; Z79.899 Other long term (current) drug therapy; Z79.4 Long term (current) use of insulin; Z79.01 Long term (current) use of anticoagulants

== ENCOUNTER → 2017-03-22 | Outpatient (CLI) | payer OTHER, BC ==
[~2017-03-22] MED LIST changes: +APR50 PO; -ATOR-24 PO; +FERR325T5 PO; +FRS/40 PO; +HYDR-4717 PO; +INSDGIPEN SC; +ISM20 PO; +ISOS30TA3 PO; +LEVO50TA6 PO; +LPT/40 PO; -LSX40 PO; +NVLG SC; +NVLG SQ; +NVLGI/PEN SQ; +POTA10SO10 PO; +POTASSIUM PO; +TPRSR25 PO; -TYL325X PO; -VITAMIN; +[UNRECOGNIZED DRUG - CODE] PO; +potassium chloride PO
[2017-03-22 17:17] LABS: BLOOD UREA NITROGEN 35 mg/dl (7-18); BUN/CREATININE RATIO 19.5 (10-20); CALCIUM 8.1 mg/dl (8.5-10.1); CARBON DIOXIDE 29 mmol/L (21-32); CHLORIDE 100 mmol/L (98-107); GLUCOSE 242 mg/dl (70-99); POTASSIUM 3.3 mmol/L (3.5-5.1); SODIUM 138 mmol/L (136-145)
[2017-03-22 17:18] LABS: PHOSPHORUS 3.3 mg/dl (2.5-4.9)
== END | disposition home or self-care (01) ==
LOC: C.LAB1850 15:48
PROVIDERS: ATTEND Internal Medicine Nephrology
DX: N17.9 Acute kidney failure, unspecified (principal)

== ENCOUNTER → 2017-05-03 | Outpatient (CLI) | payer OTHER, BC ==
[~2017-05-03] MED LIST changes: -FERR325T5 PO; -HYDR-4717 PO; -ISM20 PO; -LEVO50TA6 PO; -NVLG SC; -POTA10SO10 PO; -POTASSIUM PO; -[UNRECOGNIZED DRUG - CODE] PO
[2017-05-03 16:42] LABS: MEAN CELL VOLUME 91.2 fL (80-100); MEAN CORPUSCULAR HEMOGLOBIN 29.8 pg (25-34); MEAN CORPUSCULAR HGB CONC 32.7 g/dl (32-36); MEAN PLATELET VOLUME 10.1 fL (7.4-10.4); PLATELET COUNT 236 K/uL (130-400); RED BLOOD COUNT 3.62 M/uL (4.2-5.4); WHITE BLOOD COUNT 9.87 K/uL (4.8-10.8)
[2017-05-03 17:09] LABS: BLOOD UREA NITROGEN 44 mg/dl (7-18); BUN/CREATININE RATIO 23.2 (10-20); CARBON DIOXIDE 31 mmol/L (21-32); CHLORIDE 98 mmol/L (98-107); GLUCOSE 136 mg/dl (70-99); POTASSIUM 3.5 mmol/L (3.5-5.1); SODIUM 136 mmol/L (136-145)
[2017-05-03 17:10] LABS: PHOSPHORUS 3.2 mg/dl (2.5-4.9)
== END | disposition home or self-care (01) ==
LOC: C.LAB1850 16:08
PROVIDERS: ATTEND Internal Medicine Nephrology
DX: I10 Essential (primary) hypertension (principal); N18.3 Chronic kidney disease, stage 3 (moderate); R80.9 Proteinuria, unspecified; E55.9 Vitamin D deficiency, unspecified

== ENCOUNTER → 2017-05-04 | Outpatient (CLI) | payer OTHER, BC ==
[2017-05-04 21:48] LABS: SYNOVIAL FLUID APPEARANCE CLOUDY; SYNOVIAL FLUID COLOR RED; SYNOVIAL FLUID MONONUC RELAT 5.8 %; SYNOVIAL FLUID POLYNUC RELAT 94.2 %
[2017-05-08 20:34] LABS: LYME DNA PCR CSF OR SYNOVIAL Not detected (Not Detected); LYME DNA SOURCE Synovial Fluid
== END | disposition home or self-care (01) ==
LOC: C.LABSPEC 16:58
PROVIDERS: ATTEND Orthopaedic Surgery
DX: M25.461 Effusion, right knee (principal); M25.561 Pain in right knee

== ENCOUNTER → 2017-05-11 | Outpatient (CLI) | payer OTHER, BC ==
--- NOTE | 2017-05-11 15:51 | MAMMOGRAPHY REPORT ---
BILATERAL DIGITAL DIAGNOSTIC MAMMOGRAM WITH CAD: 05/11/2017 CLINICAL HISTORY: 89-year-old woman with a personal history of remote left breast cancer, and recent right breast cancer status post bilateral breast conservation therapy. TECHNIQUE: Bilateral CC and MLO views of the breasts and spot magnification right CC and ML views wer e obtained. Current study was also evaluated with a Computer Aided Detection (CAD) system. COMPARISON: Comparison is made to exams dated: 05/06/2016 mammogram, 09/06/2015 mammogram, 08/27/2015 mammogram, 02/20/2015 mammogram, 12/31/2014 mammogram, and 12/27/2013 mammogram - [facility]. BREAST COMPOSITION: The tissue of both breasts is heterogeneously dense, which may obscure small mas ses. FINDINGS: Tomosynthesis images were not performed given unsteadiness of the patient on her feet and n eeding a second equipment service technician to study the patient during imaging. There is diffuse bilater al skin thickening and trabecular edema, likely related to prior treatment. There are coarse benign- appearing calcifications and surgical clips as well as a biopsy marker clip within the left breast. Mild to moderate vascular calcification bilaterally. No new suspicious mass, architectural distortio n or cluster of microcalcifications is seen. IMPRESSION: ACR-BI-RADS CATEGORY 3: PROBABLY BENIGN 1. Stable posttreatment changes in both breasts, without definite mammographic evidence of malignanc y. 2. Recommend diagnostic right mammograms and possible ultrasound in 6 months, to ensure at least 2 y ears of stability after treatment. 3. Stable appearance of the left breast, without mammographic evidence of malignancy. Advise follow -up in 1 year. These results and recommendations were discussed with the patient at the time of the exam. She tenta tively scheduled the follow-up appointment prior to leaving our department. Approximately 10% of breast cancers are not detected with mammography. A negative mammographic report should not delay biopsy if a clinically suggestive mass is present. Isa Guadalupe M.D. ay/:05/11/2017 15:11:02 Attending Technologist: Darcy Law RT(R)(M), [facility] Hand Bender: Marcella Ponce RT(R)(M), [facility] letter sent: Follow Up Recommended 3 BI-RADS Code: ACR-BI-RADS Category 3: Probably Benign
== END | disposition home or self-care (01) ==
LOC: C.MAMM 13:42
PROVIDERS: ATTEND Surgery
DX: Z08 Encounter for follow-up examination after completed treatment for malignant neoplasm (principal); Z85.3 Personal history of malignant neoplasm of breast

== ENCOUNTER → 2017-05-25 | Outpatient (CLI) | payer OTHER, BC ==
--- NOTE | 2017-05-25 15:43 | DIAGNOSTIC IMAGING REPORT ---
(RENAL)RETROPERITON COMP HISTORY: 89 years-old Female PROTEINURIA COMPARISON: CT abdomen and pelvis 10/06/2016 TECHNIQUE: Multiple real-time sonographic images of the kidneys and urinary bladder were obtained assessing grayscale appearance and color flow. FINDINGS: The right kidney measures 7.4 x 3.4 x 3.2 cm. Parenchyma is within normal limits without focal mass. No renal calculi or hydronephrosis. The left kidney measures 11.9 x 4.5 x 4.7 cm. Parenchyma is within normal limits without focal mass. There is mild dilation of the renal pelvis without obstructing stone or mass identified. Urinary bladder appears within normal limits, however no ureteral jets are identified. IMPRESSION: 1. Mild prominence of the left renal pelvis suggests extrarenal pelvis as seen on comparison CT study dated 10/06/2016. Mild hydronephrosis may have a similar appearance. No obstructing stone or mass identified. 2. Unremarkable sonographic appearance of the right kidney and urinary bladder. The above report was generated using voice recognition software. It may contain grammatical, syntax or spelling errors. Electronically signed by: Larry Trujillo M.D. 05/25/2017 3:42 PM Dictated Date/Time: 05/25/2017 3:39 PM
== END | disposition home or self-care (01) ==
LOC: C.ULTRBC 15:01
PROVIDERS: ATTEND Internal Medicine Nephrology
DX: N18.3 Chronic kidney disease, stage 3 (moderate) (principal); R80.9 Proteinuria, unspecified; E55.9 Vitamin D deficiency, unspecified; I12.9 Hypertensive chronic kidney disease with stage 1 through stage 4 chronic kidney disease, or unspecified chronic kidney disease

== ENCOUNTER → 2017-06-05 | Outpatient (CLI) | payer OTHER, BC ==
[2017-06-05 13:10] LABS: HEMATOCRIT 28.6 % (37-47); MEAN CELL VOLUME 90.2 fL (80-100); MEAN CORPUSCULAR HEMOGLOBIN 31.5 pg (25-34); MEAN PLATELET VOLUME 9.8 fL (7.4-10.4); PLATELET COUNT 235 K/uL (130-400); RED BLOOD COUNT 3.17 M/uL (4.2-5.4); WHITE BLOOD COUNT 8.19 K/uL (4.8-10.8)
[2017-06-05 13:21] LABS: ESTIMATED AVERAGE GLUCOSE 186 mg/dl; HA1C FLAG Normal (Normal)
[2017-06-05 13:37] LABS: BLOOD UREA NITROGEN 31 mg/dl (7-18); BUN/CREATININE RATIO 18.4 (10-20); GLUCOSE 130 mg/dl (70-99); SODIUM 129 mmol/L (136-145)
[2017-06-05 13:38] LABS: ALT/SGPT 78 U/L (12-78); CALCIUM 8.1 mg/dl (8.5-10.1); CARBON DIOXIDE 28 mmol/L (21-32); CHLORIDE 94 mmol/L (98-107); POTASSIUM 3.2 mmol/L (3.5-5.1)
[2017-06-05 13:39] LABS: URINE PROTIEN/CREAT RATIO 6.4 (0-0.2); URINE TOTAL PROTEIN 352.8 mg/dl (0-11.9)
[2017-06-05 13:40] LABS: ALB/GLOB RATIO 0.8 (0.9-2); ALKALINE PHOSPHATASE 114 U/L (45-117); AST/SGOT 63 U/L (15-37); PHOSPHORUS 3.3 mg/dl (2.5-4.9)
[2017-06-05 14:33] LABS: URINE APPEARANCE CLEAR (CLEAR); URINE BILIRUBIN NEG (NEG); URINE COLOR YELLOW; URINE NITRITE NEG (NEG); URINE PH 6.5 (4.5-7.5); URINE SPECIFIC GRAVITY 1.017 (1.000-1.030); UROBILINOGEN NEG (NEG)
[2017-06-05 14:37] LABS: MANUAL MICROSCOPIC REQUIRED? YES; REVIEW REQ? NO
[2017-06-05 14:58] LABS: URINE BACTERIA 2+ (NEG)
== END | disposition home or self-care (01) ==
LOC: C.LAB 11:56
PROVIDERS: ATTEND Internal Medicine
DX: E78.5 Hyperlipidemia, unspecified (principal); I13.0 Hypertensive heart and chronic kidney disease with heart failure and stage 1 through stage 4 chronic kidney disease, or unspecified chronic kidney disease; E11.22 Type 2 diabetes mellitus with diabetic chronic kidney disease; N18.3 Chronic kidney disease, stage 3 (moderate); I50.9 Heart failure, unspecified; R80.9 Proteinuria, unspecified; E55.9 Vitamin D deficiency, unspecified

== ENCOUNTER 2017-06-17 15:05 | Inpatient (IN) | payer OTHER, BC ==
[~2017-06-17] VITALS: Ht 165.1 cm; Wt 63.5 kg
[2017-06-17] VITALS (14 sets, daily range): BP systolic 131–188; BP diastolic 53–76; PULSE 58–82; TEMP 36.5–37.1; O2SAT 96–100; Ht 165.1 cm; Wt 63.5 kg
[~2017-06-17 15:05] MED LIST changes: -APR50 PO; -FRS/40 PO; -INSU1INJ33 SC; -ISOS30TA3 PO; -NVLG SQ; -TPRSR25 PO; -potassium chloride PO
[2017-06-17] MEDS ORDERED: NVLG SQ (15:41)
[2017-06-17] MEDS ORDERED: INSU1INJ33 SC (15:48)
[2017-06-17] MEDS ORDERED: NVLGI/PEN SQ (15:48)
[2017-06-17] MEDS ORDERED: FRS/40 PO (15:48)
[2017-06-17] MEDS ORDERED: ISOS30TA3 PO (15:48)
[2017-06-17 16:08] LABS: BASO % 0.1 %; BASO ABS # 0.01 K/uL (0-0.2); EOS % 0.8 %; HEMATOCRIT 21.6 % (37-47); IG% 0.2 %; LYMPH % 9.1 %; LYMPH ABS # 0.83 K/uL (1.2-3.4); MEAN CELL VOLUME 91.5 fL (80-100); MEAN CORPUSCULAR HEMOGLOBIN 30.1 pg (25-34); MEAN CORPUSCULAR HGB CONC 32.9 g/dl (32-36); MEAN PLATELET VOLUME 8.9 fL (7.4-10.4); NEUT % 81.8 %; PLATELET COUNT 246 K/uL (130-400); RED BLOOD COUNT 2.36 M/uL (4.2-5.4); WHITE BLOOD COUNT 9.15 K/uL (4.8-10.8)
[2017-06-17 16:20] LABS: INR 2.5 (0.9-1.1); PARTIAL THROMBOPLASTIN RATIO 1.6; PROTHROMBIN TIME (PATIENT) 27.8 SECONDS (9.0-12.0)
[2017-06-17 16:25] LABS: CALCIUM 7.9 mg/dl (8.5-10.1); CREATININE 1.9 mg/dl (0.60-1.20); POTASSIUM 3.3 mmol/L (3.5-5.1)
[2017-06-17 16:44] LABS: COMPLETE YES; SCHISTOCYTES 1+
[2017-06-17] MEDS ORDERED: GLUCOSE 10 TABS/TUBE PO PRN (17:30)
[2017-06-17] MEDS ORDERED: POTASSIUM CHLORIDE 10 MEQ TABCR PO ONE (17:30)
[2017-06-17] MEDS ORDERED: DEXTROSE 50% 50 ML SYR IV PRN (17:30)
[2017-06-17] MEDS ORDERED: ACETAMINOPHEN 325 MG TAB PO PRN (17:30)
[2017-06-17] MEDS ORDERED: GLUCAGON FOR INJ 1 MG VIAL SQ PRN (17:30)
[2017-06-17] MEDS ORDERED: GLUCOSE 40% GEL 15 GM TUBE PO PRN (17:30)
[2017-06-17] MEDS ORDERED: potassium chloride PO (17:34)
[2017-06-17] MEDS ORDERED: PHYTONADIONE INJ 10 MG in SODIUM CHLORIDE 0.9% 50ML 50 ML IV ONE (17:45)
[2017-06-17] MEDS ORDERED: POTASSIUM CHLORIDE 20 MEQ/15 ML UDC PO ONE (18:15)
[2017-06-17] MEDS ORDERED: NURSING VERBAL MED ORDER ONE (18:30)
[2017-06-17] MEDS ORDERED: PHARMACY GLYCEMIC MGMT CONSULT PRN (18:38)
[2017-06-17] MEDS ORDERED: CONSULT PHARMACY PRN (18:43)
[2017-06-17] MEDS ORDERED: LANTUS PER UNIT CHARGE SQ PRN (18:45)
--- NOTE | 2017-06-17 19:34 | DIAGNOSTIC IMAGING REPORT ---
CHEST ONE VIEW PORTABLE CLINICAL HISTORY: 89 years-old Female presenting with Elevated troponin. TECHNIQUE: Portable upright AP view of the chest was obtained. COMPARISON: 01/19/2017. FINDINGS: Atherosclerosis of aortic arch. Chronic silhouette enlargement, unchanged. Interval decrease in bibasilar opacities and pleural effusions. Background reticular opacities at the lung bases suggested. Mild bronchial wall thickening noted. Mild superior subluxation of the right humeral head suggested. IMPRESSION: 1. Cardiomegaly. 2. Interval decrease in bibasilar opacities and bilateral pleural effusions. Suggestion of background chronic lung disease. Electronically signed by: Jeyson Joy M.D. 06/17/2017 7:32 PM Dictated Date/Time: 06/17/2017 7:30 PM
--- NOTE | 2017-06-17 20:01 | DIAGNOSTIC IMAGING REPORT ---
ABD/PELVIS NO IV OR ORAL CONT HISTORY: 89 years-old Female acute lower abdominal pain. COMPARISON: CT abdomen and pelvis 10/06/2016. TECHNIQUE: Multiple axial CT images of the abdomen and pelvis were obtained without contrast. A dose lowering technique was used consistent with the principals of CORY. FINDINGS: Small right and trace left pleural effusions are noted. Groundglass opacities of the anterolateral right lower lobe are suspicious for pneumonitis. There is marked cardiac enlargement with decreased attenuation of the cardiac blood pool suggesting anemia. There is increased attenuation of the liver measuring 90 Hounsfield units, increased from comparison. The spleen and adrenal glands are unremarkable. 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 and. High attenuating material is seen within the gallbladder lumen suggesting sludge or alternatively vicarious excretion of contrast if the patient has had recent IV contrast. There is moderate pancreatic atrophy. Hyperattenuating 7 mm lesion involves the posterior interpolar right kidney suggesting hemorrhagic or proteinaceous cyst. No renal calculi or hydronephrosis. Ureters and urinary bladder are unremarkable. 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 No bulky adenopathy is identified. There is no bowel obstruction. Extensive sigmoid colonic diverticulosis is noted with associated moderate surrounding inflammatory changes and asymmetric lateral wall thickening involving the mid sigmoid. There is no evidence of perforation or abscess at this time. There is gaseous distention of the tortuous sigmoid with a gas outlined area of mural nodularity measuring 1.3 x 1.1 cm on image 3:30 of the axial series. Left inguinal hernia contains a loop of nondilated ileum. Moderate diffuse body wall edema is noted. Small fat filled ventral midline abdominal wall hernia is seen, diastases 2.0 cm. The bones are moderately demineralized with multifocal severe degenerative changes of the spine. Remote pars defects are present at L4-L5 with 1.4 cm anterolisthesis. IMPRESSION: 1. Sigmoid diverticulosis with marked colonic wall thickening and surrounding inflammatory stranding suggests acute diverticulitis. There is no evidence of associated perforation or abscess at this time, however evaluation is limited without the use of contrast. 2. Mural soft tissue attenuating focus involving the sigmoid colon as described above measuring up to 1.3 cm suggests adherent stool or polypoid lesion. This could be correlated with colonoscopy. 3. Left inguinal hernia contains a loop of nondilated ileum. 4. Increased attenuation of the liver, new from comparison study 10/06/2016. Differential considerations would include amiodarone toxicity or hemachromatosis among other etiologies. 5. Small right and trace left pleural effusions. 6. Additional incidental findings as above. The above report was generated using voice recognition software. It may contain grammatical, syntax or spelling errors. Electronically signed by: Larry Trujillo M.D. 06/17/2017 8:00 PM Dictated Date/Time: 06/17/2017 7:43 PM
--- NOTE | 2017-06-17 20:27 | EMERGENCY ROOM VISIT NOTE ---
History Report prepared by Elijah: Madi Eldridge Under the Supervision of: Dr. Victor Hugo Badillo M.D. First contact with patient: 15:11 Chief Complaint: RECTAL BLEEDING Stated Complaint: RECTAL BLEEDING, PASSING BLOOD CLOTS History of Present Illness The patient is an 89 year old female who presents to the Emergency Room with complaints of episodes of rectal bleeding that started last night. She says that she had around 3 to 4 episodes of bright red blood last night, and a couple more episodes earlier today. She states that there is a lot of blood and that she has never had bleeding like this before. The patient adds that she recently started to feel weak as well. She states that before the rectal bleeding started, she had been having diarrhea. The patient says that when the diarrhea started, she started having low abdominal pain as well. She states that she is still having the abdominal pain. She notes that she feels pressure when she defecates, but without any pain. She denies any vomiting, fevers, chest pain, shortness of breath, or melena. The patient notes no recent foreign travel or antibiotic use. The patient is on Coumadin for atrial fibrillation. Her last colonoscopy was quite a while ago. It showed a benign polyp. Source of History: patient Onset: Last night Position: other (rectum) Symptom Intensity: lots of bright red blood Quality: other (bleeding) Timing: other (episodes) Associated Symptoms: + abdominal pain, + diarrhea, + weakness, No fevers, No chest pain, No SOB, No vomiting, No melena Note: Associated symptoms: Pressure when defecating but no pain. Review of Systems See HPI for pertinent positives & negatives. A total of 10 systems reviewed and were otherwise negative. Past Medical & Surgical Medical Problems: (1) GERMAINE (acute kidney injury) (2) Anemia (3) Breast cancer (4) Cataract (5) CKD (chronic kidney disease), stage IV (6) Diastolic CHF (7) DM type 2 (diabetes mellitus, type 2) (8) Dyslipidemia (9) History of bladder cancer (10) History of melanoma (11) Hyperglycemia (12) Hypertension (13) Paroxysmal atrial fibrillation (14) Rectal bleeding (15) S/p excision of bladder tumor (16) TIA (transient ischemic attack) Surgical Problems: (1) H/O cystoscopy (2) H/O hernia repair (3) H/O lymph node biopsy (4) H/O partial mastectomy (5) S/P lumbar laminectomy (6) S/P right knee arthroscopy (7) S/P BROOKLYNN-BSO (8) Status post Mohs surgery Family History Cardiac disorder FATHER MOTHER Social History Smoking Status: Never Smoker Alcohol Use: none Drug Use: none Marital Status: Housing Status: lives alone Occupation Status: retired Current/Historical Medications Scheduled Amiodarone Hcl (Cordarone), 200 MG PO DAILY Aspirin (Aspirin Ec), 81 MG PO DAILY Atorvastatin (Lipitor), 40 MG PO HS Furosemide (Lasix), 40 MG PO DAILY Hydralazine Hcl (Apresoline), 25 MG PO BID Insulin Aspart (Novolog Flexpen), 5 UNITS SQ QAM Insulin Aspart (Novolog Flexpen), 2 UNITS SQ DIRECTED Insulin Degludec (Tresiba Flextouch), 3 UNITS SC HS Isosorbide Mononitrate Ext Rel (Imdur Ext Rel), 20 MG PO TID Metoprolol Succ (Toprol Xl) (Toprol-Xl), 25 MG PO DAILY Warfarin Sod (Coumadin), 1 TAB PO 5XWK Warfarin Sod (Coumadin), 1 TAB PO 2XWK [potassium chloride], 7.5 ML PO DAILY Scheduled PRN Polyethylene (Miralax), 17 GM PO DAILY PRN for Constipation Allergies Coded Allergies: Anastrozole (Verified Allergy, Severe, ANAPHYLAXIS, 06/17/17) edema face/tongue/lips Pioglitazone (Verified Allergy, Intermediate, HIVES, 06/17/17) Metformin (Verified Adverse Reaction, Intermediate, DIARRHEA, 06/17/17) Physical Exam Vital Signs Date Time Temp Pulse Resp B/P (MAP) Pulse Ox O2 Delivery O2 Flow Rate FiO2 06/17/17 16:30 63 18 168/86 96 Room Air 06/17/17 16:27 63 06/17/17 15:06 36.7 60 16 171/64 95 Room Air Physical Exam Constitutional: Vital signs reviewed. Eyes: Pupils are equal round reactive to light. Conjunctiva are noninjected. ENT: Pharynx is clear without erythema or exudate. Mucous membranes are moist. Neck supple without meningeal signs. Respiratory: Clear to auscultation bilaterally. Breath sounds are equal bilaterally. Cardiovascular: Regular rate and rhythm. No rubs or gallops. GI: Soft, nondistended and nontender. Bowel sounds are present. Rectal: Bright red blood. There is a small external hemorrhoid, nontender, non- thrombosed, no stool. Musculoskeletal: No peripheral edema. No lower extremity tenderness. Integumentary: Pale. No cyanosis. Neurological: The patient is awake and alert. No focal deficits. Psychiatric: Normal affect. Medical Decision & Procedures ER Provider Diagnostic Interpretation: Radiology results as stated below per my review and the radiologist's interpretation: CHEST ONE VIEW PORTABLE CLINICAL HISTORY: 89 years-old Female presenting with Elevated troponin. TECHNIQUE: Portable upright AP view of the chest was obtained. COMPARISON: 01/19/2017. FINDINGS: Atherosclerosis of aortic arch. Chronic silhouette enlargement, unchanged. Interval decrease in bibasilar opacities and pleural effusions. Background reticular opacities at the lung bases suggested. Mild bronchial wall thickening noted. Mild superior subluxation of the right humeral head suggested. IMPRESSION: 1. Cardiomegaly. 2. Interval decrease in bibasilar opacities and bilateral pleural effusions. Suggestion of background chronic lung disease. Electronically signed by: Jeyson Joy M.D. 06/17/2017 7:32 PM Dictated Date/Time: 06/17/2017 7:30 PM ABD/PELVIS NO IV OR ORAL CONT HISTORY: 89 years-old Female acute lower abdominal pain. COMPARISON: CT abdomen and pelvis 10/06/2016. TECHNIQUE: Multiple axial CT images of the abdomen and pelvis were obtained without contrast. A dose lowering technique was used consistent with the principals of ALARA. FINDINGS: Small right and trace left pleural effusions are noted. Groundglass opacities of the anterolateral right lower lobe are suspicious for pneumonitis. There is marked cardiac enlargement with decreased attenuation of the cardiac blood pool suggesting anemia. There is increased attenuation of the liver measuring 90 Hounsfield units, increased from comparison. The spleen and adrenal glands are unremarkable. 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 and. High attenuating material is seen within the gallbladder lumen suggesting sludge or alternatively vicarious excretion of contrast if the patient has had recent IV contrast. There is moderate pancreatic atrophy. Hyperattenuating 7 mm lesion involves the posterior interpolar right kidney suggesting hemorrhagic or proteinaceous cyst. No renal calculi or hydronephrosis. Ureters and urinary bladder are unremarkable. 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 No bulky adenopathy is identified. There is no bowel obstruction. Extensive sigmoid colonic diverticulosis is noted with associated moderate surrounding inflammatory changes and asymmetric lateral wall thickening involving the mid sigmoid. There is no evidence of perforation or abscess at this time. There is gaseous distention of the tortuous sigmoid with a gas outlined area of mural nodularity measuring 1.3 x 1.1 cm on image 3:30 of the axial series. Left inguinal hernia contains a loop of nondilated ileum. Moderate diffuse body wall edema is noted. Small fat filled ventral midline abdominal wall hernia is seen, diastases 2.0 cm. The bones are moderately demineralized with multifocal severe degenerative changes of the spine. Remote pars defects are present at L4-L5 with 1.4 cm anterolisthesis. IMPRESSION: 1. Sigmoid diverticulosis with marked colonic wall thickening and surrounding inflammatory stranding suggests acute diverticulitis. There is no evidence of associated perforation or abscess at this time, however evaluation is limited without the use of contrast. 2. Mural soft tissue attenuating focus involving the sigmoid colon as described above measuring up to 1.3 cm suggests adherent stool or polypoid lesion. This could be correlated with colonoscopy. 3. Left inguinal hernia contains a loop of nondilated ileum. 4. Increased attenuation of the liver, new from comparison study 10/06/2016. Differential considerations would include amiodarone toxicity or hemachromatosis among other etiologies. 5. Small right and trace left pleural effusions. 6. Additional incidental findings as above. The above report was generated using voice recognition software. It may contain grammatical, syntax or spelling errors. Electronically signed by: Larry Trujillo M.D. 06/17/2017 8:00 PM Dictated Date/Time: 06/17/2017 7:43 PM Laboratory Results 06/17/17 15:50 Red Blood Count 2.36, Mean Corpuscular Volume 91.5, Mean Corpuscular Hemoglobin 30.1, Mean Corpuscular Hemoglobin Concent 32.9, Mean Platelet Volume 8.9, Neutrophils (%) (Auto) 81.8, Lymphocytes (%) (Auto) 9.1, Monocytes (%) (Auto) 8.0, Eosinophils (%) (Auto) 0.8, Basophils (%) (Auto) 0.1, Neutrophils # (Auto) 7.49, Lymphocytes # (Auto) 0.83, Monocytes # (Auto) 0.73, Eosinophils # (Auto) 0.07, Basophils # (Auto) 0.01 06/17/17 15:50 Test 06/17/17 15:50 06/17/17 15:57 White Blood Count 9.15 K/uL (4.8-10.8) Red Blood Count 2.36 M/uL (4.2-5.4) Hemoglobin 7.1 g/dL (12.0-16.0) Hematocrit 21.6 % (37-47) Mean Corpuscular Volume 91.5 fL (80-100) Mean Corpuscular Hemoglobin 30.1 pg (25-34) Mean Corpuscular Hemoglobin Concent 32.9 g/dl (32-36) Platelet Count 246 K/uL (130-400) Mean Platelet Volume 8.9 fL (7.4-10.4) Neutrophils (%) (Auto) 81.8 % Lymphocytes (%) (Auto) 9.1 % Monocytes (%) (Auto) 8.0 % Eosinophils (%) (Auto) 0.8 % Basophils (%) (Auto) 0.1 % Neutrophils # (Auto) 7.49 K/uL (1.4-6.5) Lymphocytes # (Auto) 0.83 K/uL (1.2-3.4) Monocytes # (Auto) 0.73 K/uL (0.11-0.59) Eosinophils # (Auto) 0.07 K/uL (0-0.5) Basophils # (Auto) 0.01 K/uL (0-0.2) RDW Standard Deviation 46.4 fL (36.4-46.3) RDW Coefficient of Variation 13.9 % (11.5-14.5) Immature Granulocyte % (Auto) 0.2 % Immature Granulocyte # (Auto) 0.02 K/uL (0.00-0.02) Schistocytes 1+ Prothrombin Time 27.8 SECONDS (9.0-12.0) Prothromb Time International Ratio 2.5 (0.9-1.1) Activated Partial Thromboplast Time 41.8 SECONDS (21.0-31.0) Partial Thromboplastin Ratio 1.6 Anion Gap 5.0 mmol/L (3-11) Est Creatinine Clear Calc Drug Dose 18.1 ml/min Estimated GFR () 26.6 Estimated GFR (Non- 23.0 BUN/Creatinine Ratio 21.0 (10-20) Calcium Level 7.9 mg/dl (8.5-10.1) Total Bilirubin 0.3 mg/dl (0.2-1) Direct Bilirubin 0.1 mg/dl (0-0.2) Aspartate Amino Transf (AST/SGOT) 62 U/L (15-37) Alanine Aminotransferase (ALT/SGPT) 109 U/L (12-78) Alkaline Phosphatase 101 U/L (45-117) Total Protein 5.2 gm/dl (6.4-8.2) Albumin 2.4 gm/dl (3.4-5.0) Bedside Troponin I 0.090 ng/ml (0-0.045) Laboratory results as reviewed by me. 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 A complete history and physical exam was performed. 1619: I reevaluated the patient and obtained written and verbal blood consent from the patient. I discussed the test results with her. The patient verbally expressed understanding and agreement of the treatment plan. The patient will be evaluated for further treatment. 1620: I discussed the patient with Gabby Serrato - she will evaluate the patient for further treatment. 1707: I reevaluated the patient and she is still hemodynamically stable. She is being seen by the hospitalist group. The patient verbally expressed understanding and agreement of the treatment plan. The patient will be evaluated for further treatment. 1740: I discussed the patient with Dr. Constantin Serrato multimedia producer - she requested I give FFP and vitamin K IV, but did not feel Kcentra was indicated. She requested imaging as well. 1923: I reevaluated the patient and she is hemodynamically stable, currently being transfused with packed RBC's. 2004: I went to reevaluate the patient but she went upstairs already. I will discuss the CT results with Dr. Ivory. Medical Decision This is an 89-year-old female who presents with rectal bleeding. Differential diagnosis includes symptomatic anemia, lower GI bleed, mass, polyp, AVM, hemorrhoid. I did perform a limited focused review of portions of the patient' s old chart on the electronic medical record. The patient was admitted on February 28 for a possible TIA. She had a negative EEG. I did evaluate the patient as noted above. The patient is on Coumadin for atrial fibrillation. She is presenting with bright red blood per rectum. Rectal examination shows bright red blood without stool. She does have a hemorrhoid but it does not appear to be the source of her bleeding. IV access was established. The patient was placed on a continuous environmental monitoring technician. I did order and personally review the patient's 12-lead EKG and chest x-ray as described above. I did order and review the patient's blood work as noted in the electronic medical record. She has significant anemia and a therapeutic INR. I did order a CT of the abdomen and pelvis. I did review the images myself as well as the radiology report as described above. She does have diverticulitis. I did attempt to tell the patient about this but she had been sent to the floor. I did talk to Dr. Grijalva who will place her on antibiotics and informed the patient. Medication Reconcilliation Current Medication List: was personally reviewed by me Blood Pressure Screening Patient's blood pressure: Elevated blood pressure Consults Time Called: 1618 Consulting Physician: Gabby Serrato Returned Call: 1620 I discussed the patient with Gabby Serrato - she will evaluate the patient for further treatment. Additional Consults: Time Called: 1730 Consulted Physician: Dr. Constantin Serrato multimedia producer Returned Call: 1740 Additional Comments: I discussed the patient with Dr. Constantin Serrato multimedia producer - she requested I give FFP and vitamin K IV, but did not feel Kcentra was indicated. She requested imaging as well. Impression Primary Impression: Lower GI bleed Additional Impressions: Anticoagulated on Coumadin Symptomatic anemia CKD (chronic kidney disease) Elevated troponin Acute diverticulitis Critical Care I have personally spent 35 minutes of critical care time in the direct management of this patient. This includes bedside care, interpretation of diagnostic studies, and testing, discussion with consultants, patient, and family members, and other required patient management activities. This 35 minutes is in excess of all separately billable procedures. Scribe Attestation The scribe's documentation has been prepared under my direct and personally reviewed by me in its entirety. I confirm that the note above accurately reflects all work, treatment, procedures, and medical decision making performed by me. Departure Information Dispostion Being Evaluated By Hospitalist Referrals Adam Dominguez D.O. (PCP) Patient Instructions My [facility] Problem Qualifiers Additional Impressions: CKD (chronic kidney disease) Chronic kidney disease stage: unspecified stage Qualified Codes: N18.9 - Chronic kidney disease, unspecified
[2017-06-17] MEDS ORDERED: FUROSEMIDE INJ 40 MG in SYRINGE 0 ML IV SCH (20:30)
--- NOTE | 2017-06-17 20:45 | Pharmacy Progress Note ---
Glycemic Control Intl Consult Date of Service Jun 17, 2017. Scope Glycemic Pharmacist consulted by Gabby Payan PA-C on 06/17/17 for glycemic control and to write orders per [facility] inpatient glycemic control protocol Objective Weight (Kilograms): 62.000 Accuchecks BSG (last 24hrs): Test 06/17/17 15:50 06/17/17 20:17 Random Glucose 176 mg/dl (70-99) Bedside Glucose 241 mg/dl (70-90) Laboratory Data (last 24hrs) Test 06/17/17 15:50 Anion Gap 5.0 mmol/L BUN/Creatinine Ratio 21.0 Blood Urea Nitrogen 40 mg/dl Creatinine 1.90 mg/dl Potassium Level 3.3 mmol/L Sodium Level 137 mmol/L White Blood Count 9.15 K/uL Red Blood Count 2.36 M/uL Hemoglobin 7.1 g/dL Hematocrit 21.6 % Mean Corpuscular Volume 91.5 fL Mean Corpuscular Hemoglobin 30.1 pg Mean Corpuscular Hemoglobin Concent 32.9 g/dl Platelet Count 246 K/uL Mean Platelet Volume 8.9 fL Neutrophils (%) (Auto) 81.8 % Lymphocytes (%) (Auto) 9.1 % Monocytes (%) (Auto) 8.0 % Eosinophils (%) (Auto) 0.8 % Basophils (%) (Auto) 0.1 % Neutrophils # (Auto) 7.49 K/uL Lymphocytes # (Auto) 0.83 K/uL Monocytes # (Auto) 0.73 K/uL Eosinophils # (Auto) 0.07 K/uL Basophils # (Auto) 0.01 K/uL Recent Pertinent Medications Outpatient Anti-diabetic Regimen: * Tresiba 3 units qHS plus Novolog 5 units with breakfast and 2 units with dinner (verified via [facility]) * A1c = 8.1 % 06/05/17 Risk Factors for Insulin Resistance: * Infection: GI bleed currently on cipro/flagyl * Diet: type 2 diabetic diet Assessment & Plan ASSESSMENT: * ADA & AACE recommend a goal blood sugar range 140-180 mg/dl for the majority of critically ill & non-critically ill patients. However, more stringent targets may be selected in individual cases. * Ms Stone is an 89 y/o F well known to the glycemic service. She is admitted today with a GI bleed. The patient's outpatient regimen is vastly different from previous admissions. The regimen is confirmed with [employer] and appears to provide adequate blood sugar control (although patient does have blood sugars near 300 mg/dL). It appears from the blood sugar logs that the patient's blood sugar rises throughout the day. * Will plan for moderately different insulin plans this admission. For Lantus, a slightly higher dose will be ordered (Lantus 5 units) if blood sugar is 180 mg /dL or greater. This is appropriate as 3 units of Tresiba produces fastings around 140 mg/dL. For Novolog, the previous sliding scale was adopted for use currently. A 2 AM accucheck was ordered to ensure adequate 24 hour coverage. PLAN FOR INPATIENT GLYCEMIC CONTROL: * Basal insulin with LANTUS 5 units SQ if blood sugar 180 mg/dL or greater * Correctional Insulin with NOVOLOG per scale ACHS * Goal Range: Low 140 mg/dL - High 180 mg/dL * Correction Factor: 30 mg/dL/unit * Nutritional / Prandial insulin per carb ratio of 1 unit per 10 grams CHO consumed * Please note that the plan above was derived based on current level of insulin resistance and hospital stress. These recommendations are appropriate for inpatient admission only. Plan of care upon discharge will need to be reassessed to avoid potential outpatient hypo/hyperglycemia. Thank you.
--- NOTE | 2017-06-17 20:54 | History and Physical ---
History & Physical Date & Time of Service: Jun 17, 2017 at 20:33 Chief Complaint: Anemia, Rectal Bleeding Primary Care Physician: Adam Dominguez D.O. History of Present Illness Source: patient, family This is an 89yo F with a PMH of HTN, CKD IV, diastolic HF, DM II, A fib (on coumadin) who presents with rectal bleeding that started last evening. Patient endorses 3-4 episodes of BRBPR with diarrhea last evening. Continued to have 3 episodes today, prior to calling her PCP, who advised her to get further evaluation at the ED. Describes the blood as bright red with some darker red clots. Denies any black, tarry stools.States that earlier this week she started to feel weak and fatigued and her family mentioned that she looked pale. Has been experiencing diarrhea intermittently over the past month but it increased in frequency over the past week. Episodes of diarrhea are associated with a dull , aching pain in her lower abdomen. Denies any lightheadedness, confusion, palpitations, CP, SOB, nausea, vomiting, constipation, LE swelling. Denies any history of GI bleeds in the past. Denies hemorrhoids or abnormal colonoscopies in the past. Denies recent travel or antibiotic use. The patient is on coumadin and has been taking it regularly. Her dosage was recently increased, per [id number]. Past Medical/Surgical History Medical Problems: (1) Breast cancer Permanent Comment: Infiltrating ductal carcinoma the left breast, T1b N0M0 stage I Sabrina Septer positive, progesterone receptor positive, HER-2/george negative Status post lumpectomy and sentinel lymph node biopsy Status post radiation therapy completed 05/25/2003 Close observation and no hormonal therapy Abnormal right breast mammogram 12/31/2014 decision for 6 month follow-up Abnormal mammogram Status post ultrasound guided biopsy September 06 2015 revealing invasive ductal carcinoma grade 1 Estrogen receptor positive, progesterone receptor positive, HER-2/george negative Status post lumpectomy and sentinel lymph node biopsy 11/06/2015 [id number] M0 G1 Declined Oncotype DX and chemotherapy Status: Chronic (2) Cataract Status: Chronic (3) CKD (chronic kidney disease), stage IV Status: Chronic (4) Diastolic CHF Status: Chronic (5) DM type 2 (diabetes mellitus, type 2) Status: Chronic (6) Dyslipidemia Status: Chronic (7) History of bladder cancer Status: Chronic (8) History of melanoma Status: Chronic (9) Hypertension Status: Chronic (10) Paroxysmal atrial fibrillation Status: Chronic (11) S/p excision of bladder tumor Status: Chronic Surgical Problems: (1) H/O cystoscopy Status: Chronic (2) H/O hernia repair Status: Chronic (3) H/O lymph node biopsy Status: Chronic (4) H/O partial mastectomy Status: Chronic (5) S/P lumbar laminectomy Status: Chronic (6) S/P right knee arthroscopy Status: Chronic (7) S/P BR[place]NN-BSO Status: Chronic (8) Status post Mohs surgery Status: Chronic Family History Cardiac disorder FATHER MOTHER Social History Smoking Status: Never Smoker Drug Use: none Marital Status: Housing status: lives with family Occupational Status: retired Immunizations History of Influenza Vaccine: Yes Influenza Vaccine Date: Jul 27, 2016 History of Tetanus Vaccine?: Unknown History of Pneumococcal: Yes Pneumococcal Date: Jul 30, 2015 History of Hepatitis B Vaccine: No Multi-Drug Resistant Organisms History of MDRO: No Allergies Coded Allergies: Anastrozole (Verified Allergy, Severe, ANAPHYLAXIS, 06/17/17) edema face/tongue/lips Pioglitazone (Verified Allergy, Intermediate, HIVES, 06/17/17) Metformin (Verified Adverse Reaction, Intermediate, DIARRHEA, 06/17/17) Home Medications Scheduled Amiodarone Hcl (Cordarone), 200 MG PO DAILY Aspirin (Aspirin Ec), 81 MG PO DAILY Atorvastatin (Lipitor), 40 MG PO HS Furosemide (Lasix), 40 MG PO DAILY Hydralazine Hcl (Apresoline), 25 MG PO BID Insulin Aspart (Novolog Flexpen), 5 UNITS SQ QAM Insulin Aspart (Novolog Flexpen), 2 UNITS SQ DIRECTED Insulin Degludec (Tresiba Flextouch), 3 UNITS SC HS Isosorbide Mononitrate Ext Rel (Imdur Ext Rel), 20 MG PO TID Metoprolol Succ (Toprol Xl) (Toprol-Xl), 25 MG PO DAILY Warfarin Sod (Coumadin), 1 TAB PO 5XWK Warfarin Sod (Coumadin), 1 TAB PO 2XWK [potassium chloride], 7.5 ML PO DAILY Scheduled PRN Polyethylene (Miralax), 17 GM PO DAILY PRN for Constipation Review of Systems Ten systems reviewed and negative except as noted in the HPI. Physical Exam Vital Signs Date Time Temp Pulse Resp B/P (MAP) Pulse Ox O2 Delivery O2 Flow Rate FiO2 06/17/17 19:20 82 20 134/73 96 06/17/17 19:15 63 21 100 06/17/17 19:00 60 15 99 06/17/17 18:55 37.1 60 18 162/76 98 06/17/17 18:46 64 115/46 06/17/17 18:38 36.5 59 15 165/54 99 06/17/17 18:01 64 22 133/59 100 Nasal Cannula 2.0 64 159/52 68 136/41 06/17/17 17:12 Room Air 06/17/17 16:30 63 18 168/86 96 Room Air 06/17/17 16:27 63 06/17/17 15:06 36.7 60 16 171/64 95 Room Air General Appearance: WD/WN (Sitting upright, comfortable. + pallor ) Head: normocephalic, atraumatic Eyes: normal inspection, PERRL, sclerae normal ENT: normal ENT inspection (hard of hearing bilaterally ) Neck: supple, no adenopathy, trachea midline Respiratory/Chest: chest non-tender, lungs clear, normal breath sounds, no respiratory distress, no accessory muscle use Cardiovascular: regular rate, rhythm, + systolic murmur Abdomen/GI: normal bowel sounds, soft, no organomegaly, + tenderness (Slight TTP in bilateral lower quadrants and suprapubic area) Back: normal inspection, + pertinent finding (Presence of bruise on L buttock. Non-tender. ) Extremities/Musculoskelatal: no calf tenderness, normal capillary refill, + swelling (2+ bilateral pitting edema up to knees. ) Neurologic/Psych: no motor/sensory deficits, alert, normal mood/affect, oriented x 3 Skin: normal color, warm/dry, no rash Diagnostics Laboratory Results Results Past 24 Hours Test 06/17/17 00:00 06/17/17 06:00 06/17/17 15:50 06/17/17 15:57 Range/Units White Blood Count 9.15 4.8-10.8 K/uL Red Blood Count 2.36 4.2-5.4 M/uL Hemoglobin 7.1 12.0-16.0 g/dL Hematocrit 21.6 37-47 % Mean Corpuscular Volume 91.5 80-100 fL Mean Corpuscular Hemoglobin 30.1 25-34 pg Mean Corpuscular Hemoglobin Concent 32.9 32-36 g/dl Platelet Count 246 130-400 K/uL Mean Platelet Volume 8.9 7.4-10.4 fL Neutrophils (%) (Auto) 81.8 % Lymphocytes (%) (Auto) 9.1 % Monocytes (%) (Auto) 8.0 % Eosinophils (%) (Auto) 0.8 % Basophils (%) (Auto) 0.1 % Neutrophils # (Auto) 7.49 1.4-6.5 K/uL Lymphocytes # (Auto) 0.83 1.2-3.4 K/uL Monocytes # (Auto) 0.73 0.11-0.59 K/uL Eosinophils # (Auto) 0.07 0-0.5 K/uL Basophils # (Auto) 0.01 0-0.2 K/uL RDW Standard Deviation 46.4 36.4-46.3 fL RDW Coefficient of Variation 13.9 11.5-14.5 % Immature Granulocyte % (Auto) 0.2 % Immature Granulocyte # (Auto) 0.02 0.00-0.02 K/uL Schistocytes 1+ Prothrombin Time 27.8 9.0-12.0 SECONDS Prothromb Time International Ratio 2.5 0.9-1.1 Activated Partial Thromboplast Time 41.8 21.0-31.0 SECONDS Partial Thromboplastin Ratio 1.6 Sodium Level 137 136-145 mmol/L Potassium Level 3.3 3.5-5.1 mmol/L Chloride Level 101 98-107 mmol/L Carbon Dioxide Level 31 21-32 mmol/L Anion Gap 5.0 3-11 mmol/L Blood Urea Nitrogen 40 7-18 mg/dl Creatinine 1.90 0.60-1.20 mg/dl Est Creatinine Clear Calc Drug Dose 18.1 ml/min Estimated GFR () 26.6 Estimated GFR (Non- 23.0 BUN/Creatinine Ratio 21.0 10-20 Random Glucose 176 70-99 mg/dl Calcium Level 7.9 8.5-10.1 mg/dl Total Bilirubin 0.3 0.2-1 mg/dl Direct Bilirubin 0.1 0-0.2 mg/dl Aspartate Amino Transf (AST/SGOT) 62 15-37 U/L Alanine Aminotransferase (ALT/SGPT) 109 12-78 U/L Alkaline Phosphatase 101 45-117 U/L Total Protein 5.2 6.4-8.2 gm/dl Albumin 2.4 3.4-5.0 gm/dl Bedside Troponin I 0.090 0-0.045 ng/ml Test 06/17/17 18:12 06/17/17 20:17 Range/Units Lactic Acid Level 1.1 0.4-2.0 mmol/L Troponin I 0.119 0-0.045 ng/ml Bedside Glucose 241 70-90 mg/dl Diagnostic Radiology CXR: 1. Cardiomegaly. 2. Interval decrease in bibasilar opacities and bilateral pleural effusions. Suggestion of background chronic lung disease. CT abd/pelvis (without contrast): IMPRESSION: 1. Sigmoid diverticulosis with marked colonic wall thickening and surrounding inflammatory stranding suggests acute diverticulitis. There is no evidence of associated perforation or abscess at this time, however evaluation is limited without the use of contrast. 2. Mural soft tissue attenuating focus involving the sigmoid colon as described above measuring up to 1.3 cm suggests adherent stool or polypoid lesion. This could be correlated with colonoscopy. 3. Left inguinal hernia contains a loop of nondilated ileum. 4. Increased attenuation of the liver, new from comparison study 10/06/2016. Differential considerations would include amiodarone toxicity or hemachromatosis among other etiologies. 5. Small right and trace left pleural effusions. 6. Additional incidental findings as above. EKG Sinus rhythm with 1st degree A-V block Right bundle branch block Left anterior fascicular block No change from prior EKG Impression Assessment and Plan This is an 89yo F with a PMH of HTN, CKD IV, diastolic HF, DM II, A fib (on coumadin) who presents with rectal bleeding that started last evening. Rectal bleeding: -6 episodes of bloody diarrhea and BRBPR since last evening -Associated lower abdominal pain -GI consulted; recommended holding coumadin, transfusing. Will evaluate in AM -Likely 2/[address] abd/pelvis -Transfusing 2 units rbcs -Hemodynamically stable -Hold coumadin. Given FFP and vitamin K -Reassess H&H after transfusion is complete Acute diverticulitis: -CT abd showing sigmoid diverticulosis with marked colonic wall thickening and surrounding inflamm stranding suggesting acute diverticulitis. -No evidence of associated perforation or abscess at this time but limited without use of contrast -Clear liquids -Cipro/flagyl -Pain control with tylenol Elevated troponin: -Initial troponin elevated 0.1 -Likely 2/2 ischemic demand from active bleed -CXR with mild cardiomegaly -Denies CP, SOB. Asymptomatic for ACS -No changes on EKG from previous -Trend cardiac enzymes -On tele DM II: -Held home regimen -SSI and Lantus 5mg BID, per pharm recs -BG checks AC HS -Hgb a1c ordered Diastolic HF: -Compensated -Continue home regimen -Repeat echo HTN: -Continue home regimen -Holding beta dixon in the setting of active bleed H/o A Fib: -Rate controlled -Held coumadin and beta dixon in setting of active bleed Code status: FULL PCP: Angelica Dispo:SW consulted to help with discharge placement I have seen and examined the patient and agree with the assessment and plan above. The patient is pale but otherwise not ill-appearing. She has had a 3 gram drop in Hb in the last 10 days and significant bright red bleed per rectum overnight likely related to diverticular disease on coumadin. Suprapubic tenderness on exam, no UTI symptoms and pain is not severe, better after defecation. Reversing coagulopathy with vit K and FFP and holding coumadin. Cipro/Flagyl. Clears. Apprec GI recs. Cont with resuscitation efforts overnight on quality assurance monitor chassis. I also briefly spoke w son on his way home and all his questions were answered. DO Constantin Level of Care Telemetry Advanced Directives Existing Living Will: Yes Existing Power of Leg Breaker: Yes Resuscitation Status FULL RESUSCITATION VTE Prophylaxis VTE Risk Assessment Done? Y/N: Yes Risk Level: High Given or contraindicated: Contraindicated
[2017-06-17] MEDS ORDERED: INSULIN GLARGINE SOLOSTAR 100 UNITS/ML 3 ML PEN SC SCH (21:00)
[2017-06-17] MEDS: INSULIN ASPART 100 UNITS/ML 3 ML PEN SC SCH (21:00)
[2017-06-17] MEDS: METRONIDAZOLE 500MG / NSS IV SCH (21:05)
[2017-06-17] MEDS ORDERED: CEFTRIAXONE SOD INJ 1 GM in DEXTROSE 5% ADD-VANTAGE 50ML 50 ML IV SCH (22:00)
[2017-06-17] MEDS ORDERED: PHYTONADIONE INJ 5 MG in SODIUM CHLORIDE 0.9% 50ML 50 ML IV ONE (22:00)
[2017-06-17] MEDS: ISOSORBIDE DINITRATE 20 MG TAB PO SCH (22:09)
[2017-06-17] MEDS: ATORVASTATIN 40 MG TAB PO SCH (22:09)
[2017-06-18] VITALS (28 sets, daily range): BP systolic 117–192; BP diastolic 54–76; PULSE 57–69; TEMP 36.3–36.9; O2SAT 90–100
[2017-06-18] MEDS ORDERED: INSULIN ASPART 100 UNITS/ML 3 ML PEN SC SCH (02:00)
[2017-06-18] MEDS: METRONIDAZOLE 500MG / NSS IV SCH ×3 (04:03→20:07)
[2017-06-18 05:32] LABS: HEMATOCRIT 21.9 % (37-47); MEAN CELL VOLUME 89.8 fL (80-100); MEAN CORPUSCULAR HEMOGLOBIN 30.3 pg (25-34); MEAN CORPUSCULAR HGB CONC 33.8 g/dl (32-36); MEAN PLATELET VOLUME 9.3 fL (7.4-10.4); PLATELET COUNT 191 K/uL (130-400); RED BLOOD COUNT 2.44 M/uL (4.2-5.4); WHITE BLOOD COUNT 9.67 K/uL (4.8-10.8)
[2017-06-18 05:44] LABS: INR 1.5 (0.9-1.1); PROTHROMBIN TIME (PATIENT) 16.2 SECONDS (9.0-12.0)
[2017-06-18 06:04] LABS: BUN/CREATININE RATIO 22.4 (10-20); CALCIUM 7.7 mg/dl (8.5-10.1); CREATININE 1.7 mg/dl (0.60-1.20); POTASSIUM 3.3 mmol/L (3.5-5.1)
[2017-06-18 06:35] LABS: ESTIMATED AVERAGE GLUCOSE 151 mg/dl; HA1C FLAG Normal (Normal)
[2017-06-18] MEDS: INSULIN ASPART 100 UNITS/ML 3 ML PEN SC SCH ×4 (08:39→20:12)
[2017-06-18] MEDS: AMIODARONE 200 MG TAB PO SCH (08:40)
[2017-06-18] MEDS: ISOSORBIDE DINITRATE 20 MG TAB PO SCH ×3 (08:40→18:07)
[2017-06-18] MEDS: POTASSIUM CHLORIDE 20MEQ/15ML 473ML PO SCH (08:40)
[2017-06-18] MEDS ORDERED: METOPROLOL SUCC 25MG EXT REL TAB PO SCH (09:00)
[2017-06-18] MEDS ORDERED: INSULIN GLARGINE SOLOSTAR 100 UNITS/ML 3 ML PEN SC SCH (09:00)
--- NOTE | 2017-06-18 09:12 | Clinical Documentation Query ---
Dr. HIGGINS, [facility] : CLINICAL DOCUMENTATION QUERY Patient is an 89 year old female presenting with BRBPR and to be further evaluated in the setting of acute diverticulitis. H&H on admission of 7.1 g/dl and 21.6%. She has been transfused 2 units of PRBCs and FFP since admission. She is being monitored with serial hematology and pending GI consultation. In your clinical opinion is this patient being managed for: ( X ) Acute blood loss anemia ( ) Not Agree ( ) Other explanation of clinical findings (Please Explain) ( ) Unable to determine (Please Define) ( ) Need to Discuss The medical record reflects the following clinical findings, treatment, and risk factors. Clinical Indicators: As above Treatment: IVF, Vitamin K, FFP, PRBC transfusion, Cipro/Flagyl, serial hematology, GI consultation Risk Factors: Age, anticoagulation Please clarify and document your clinical opinion in the progress notes and discharge summary. Terms such as "probable", "suspected", "likely", "questionable", "possible", or "still to be ruled out" are acceptable. IF IN AGREEMENT, YOU MUST DOCUMENT ABOVE DIAGNOSTIC STATEMENT IN DAILY PROGRESS NOTES AND DISCHARGE SUMMARY. This document is not part of the patient's record. Thank You, Tyler Seals, RN [phone]
--- NOTE | 2017-06-18 10:00 | Progress Note ---
Internal Med Progress Note Date of Service: Jun 18, 2017. Provider Documentation: SUBJECTIVE: Seen and examined at bedside States having bleeding per rectum this morning Has some abdominal discomfort Denies chest pain, SOB, cough, wheezing Offers no other complaints OBJECTIVE: Vital Signs-as noted below Physical Exam: Vitals signs as noted above General Appearance:Thin, frail, no apparent distress Head: normocephalic, Atraumatic Eyes: normal inspection, EOMI, PERRL, Pale Neck: supple, Trachea midline Respiratory/Chest: Normal breath sounds, CTA Cardiovascular: S1, S2, No murmur Abdomen/GI:Soft, mild tender, Bowel sounds present Extremities/Musculoskelatal:normal inspection, 1+ b/l edema Neurologic/Psych:grossly no focal neurological deficits Skin: normal color, warm Lab data as noted below. ASSESSMENT & PLAN: Patient is an 89 yr female with PMH of HTN, CKD IV, diastolic HF, DM II, A fib ( on coumadin) who presents with rectal bleeding and abdominal pain Bleeding Per Rectum: In setting of acute diverticulitis and on ASA,Coumadin therapy Acute blood loss anemia ?Ischemic colitis S/P 2 units PRBC, FFP and Vit K Monitor Hb Transfuse PRN Hold ASA, coumadin Appreciate GI Input No plan for colonoscopy for now Avoid Cipro secondary to prolonged QTC Acute diverticulitis: CT abd: suggestive of acute diverticulitis Continue IV Abx: Ceftriaxone/Flagyl Day # 2 Clear liquid diet Elevated troponin: In setting of CKD IV, DHF and Acute GI bleeding troponin trended down Likely demand ischemia Denies CP, SOB P.afib: rate controlled Continue amiodarone for rate control No coumadin secondary to acute bleed Will decrease Metoprolol from 25 to 12.5mg for relative bradycardia DM II: Hold oral regimen SSI and Lantus 5mg BID, per pharm recs BG checks AC HS Hgb a1c: 6.9 Diastolic HF: Compensated Continue home regimen HTN: Continue current meds Code status: Full code Disposition: Monitor in Tele Vital Signs: Date Time Temp Pulse Resp B/P (MAP) Pulse Ox O2 Delivery O2 Flow Rate FiO2 06/18/17 16:05 36.7 63 16 150/62 90 06/18/17 16:02 36.3 60 16 136/62 (86) 91 Room Air 06/18/17 12:00 Room Air 06/18/17 11:44 36.8 61 18 148/66 (93) 95 06/18/17 08:00 Nasal Cannula 2.0 06/18/17 07:39 36.8 60 16 154/67 (96) 96 06/18/17 07:11 36.5 59 18 154/61 95 2.0 06/18/17 06:05 36.5 59 16 126/67 99 2.0 06/18/17 05:35 36.7 59 16 135/57 99 2.0 06/18/17 05:05 36.7 61 18 152/76 99 2.0 06/18/17 04:41 36.5 57 18 149/65 97 2.0 06/18/17 04:00 99 Nasal Cannula 2.0 06/18/17 03:50 36.6 63 16 117/62 99 2.0 06/18/17 02:56 36.8 67 18 147/65 99 2.0 06/18/17 01:56 36.6 61 16 137/61 98 2.0 06/18/17 01:08 36.5 58 16 145/55 98 2.0 06/18/17 00:46 36.8 57 16 157/54 100 2.0 06/18/17 00:00 99 Nasal Cannula 2.0 06/17/17 23:24 36.5 63 16 149/53 99 2.0 06/17/17 23:23 36.7 62 18 149/53 99 2.0 06/17/17 22:56 36.6 60 18 131/61 98 20.0 06/17/17 22:03 36.9 58 20 188/72 98 2.0 06/17/17 21:56 36.9 60 16 188/72 99 2.0 06/17/17 21:31 36.8 62 20 178/53 99 4.0 06/17/17 21:00 37.1 60 20 183/63 99 2.0 06/17/17 20:30 36.7 63 18 162/57 99 2.0 06/17/17 20:00 61 100 2.0 06/17/17 19:20 82 20 134/73 96 06/17/17 19:15 63 21 100 06/17/17 19:00 60 15 99 06/17/17 18:55 37.1 60 18 162/76 98 06/17/17 18:46 64 115/46 06/17/17 18:38 36.5 59 15 165/54 99 06/17/17 18:01 64 22 133/59 100 Nasal Cannula 2.0 64 159/52 68 136/41 06/17/17 17:12 Room Air 06/17/17 16:30 63 18 168/86 96 Room Air 06/17/17 16:27 63 Lab Results: Results Past 24 Hours Test 06/17/17 18:12 06/17/17 20:17 06/18/17 00:02 06/18/17 04:16 Range/Units Lactic Acid Level 1.1 0.4-2.0 mmol/L Troponin I 0.119 0.110 0-0.045 ng/ml Bedside Glucose 241 200 70-90 mg/dl Test 06/18/17 05:04 06/18/17 06:57 06/18/17 11:13 06/18/17 12:32 Range/Units White Blood Count 9.67 4.8-10.8 K/uL Red Blood Count 2.44 4.2-5.4 M/uL Hemoglobin 7.4 6.6 12.0-16.0 g/dL Hematocrit 21.9 19.3 37-47 % Mean Corpuscular Volume 89.8 80-100 fL Mean Corpuscular Hemoglobin 30.3 25-34 pg Mean Corpuscular Hemoglobin Concent 33.8 32-36 g/dl RDW Standard Deviation 47.5 36.4-46.3 fL RDW Coefficient of Variation 14.3 11.5-14.5 % Platelet Count 191 130-400 K/uL Mean Platelet Volume 9.3 7.4-10.4 fL Prothrombin Time 16.2 9.0-12.0 SECONDS Prothromb Time International Ratio 1.5 0.9-1.1 Sodium Level 139 136-145 mmol/L Potassium Level 3.3 3.5-5.1 mmol/L Chloride Level 103 98-107 mmol/L Carbon Dioxide Level 29 21-32 mmol/L Anion Gap 7.0 3-11 mmol/L Blood Urea Nitrogen 38 7-18 mg/dl Creatinine 1.70 0.60-1.20 mg/dl Est Creatinine Clear Calc Drug Dose 20.2 ml/min Estimated GFR () 30.5 Estimated GFR (Non- 26.3 BUN/Creatinine Ratio 22.4 10-20 Random Glucose 188 70-99 mg/dl Estimated Average Glucose 151 mg/dl Hemoglobin A1c 6.9 4.5-5.6 % Calcium Level 7.7 8.5-10.1 mg/dl Troponin I 0.094 0-0.045 ng/ml Bedside Glucose 210 297 70-90 mg/dl Microbiology Results 06/17/17 WBC Smear - Final, Resulted 06/17/17 Shiga Toxin Test, Resulted Pending 06/17/17 Stool Culture, Resulted Pending 06/17/17 C.difficile Toxin B Gene (PCR) - Final, Complete No C. difficile toxin B gene detected
[2017-06-18] MEDS ORDERED: CIPROFLOXACIN / D5W 400 MG in PREMIXED IN D5W 200 ML IV SCH (10:30)
[2017-06-18] MEDS ORDERED: POTASSIUM CHLORIDE 20 MEQ/15 ML UDC PO ONE (11:00)
--- NOTE | 2017-06-18 11:26 | Gastrointestinal Consultation ---
Gastrointestinal Consultation Date of Consultation: Jun 18, 2017 Attending Physician: Umair Everett Consulting Physician: Jayant Glover Reason for Consultation: GI bleed History of Present Illness Patient is a 89 year old female w PMHx of HTN, CKD IV, diastolic HF, DM II, Afib who presented to ED w c/o rectal bleeding. Pt reports had issues w loose stools w/o foul odor x 6 weeks. But noticed mid lower abd pain and rectal bleeding w clots starting Wednesday. She denies any associated fever, chills, CP , SOB, light headedness, presyncopal episode, unexpected weight loss. She also denies any sick contact or recent antibx. Last colonoscopy in [address] Esteves showed TA polyp, not recommended for repeat screening due to age. She was noted to be anemic w Hgb 7 on admission, baseline 10-11. No leukocytosis. INR 2.5 on Coumadin, received Vit K 15mg, now 1.5. CMP unremarkable except mild elevation of transaminases, though Cr 1.9 (known CKD), troponin elevated. Cdiff negative, Cx pending. She had CT abd/pelvis w/o contrast showed likely sigmoid diverticulitis w/o abscess or perforation, polypod lesion vs adherent stool to sigmoid area. Overnight she did receive 2U PRBC, 2U FFP, still having multiple loose stools w bright red blood and clots and mid lower abd pain persist, Hgb staying at 7. She is currently on Ceftriaxone and Flagyl. Past Medical/Surgical History Medical Problems: (1) Acute diverticulitis Status: Acute (2) Acute respiratory failure with hypoxia Status: Acute (3) Anticoagulated on Coumadin Status: Acute (4) CHF exacerbation Status: Acute (5) CKD (chronic kidney disease) Status: Acute (6) CVA (cerebral vascular accident) Status: Acute (7) Dehydration Status: Acute (8) Dyspnea on exertion Status: Acute (9) Elevated troponin Status: Acute (10) Elevated troponin Status: Acute (11) Hyperglycemia Status: Acute (12) Lower GI bleed Status: Acute (13) Near syncope Status: Acute (14) Right knee pain Status: Acute (15) Symptomatic anemia Status: Acute Past Medical History: See above ; hx of breast ca, cataract, dyslipidemia, hx of bladder ca, melanoma Past Surgical History: Bladder tumor resection, hernia repair, partial mastectomy, laminectomy, R knee arthroscopy, [place]-BSO, Mohs Family History Cardiac disorder FATHER MOTHER Social History Smoking Status: Never Smoker Alcohol Use: none Drug Use: none Marital Status: Housing Status: lives alone Occupation Status: retired Allergies Coded Allergies: Anastrozole (Verified Allergy, Severe, ANAPHYLAXIS, 06/17/17) edema face/tongue/lips Pioglitazone (Verified Allergy, Intermediate, HIVES, 06/17/17) Metformin (Verified Adverse Reaction, Intermediate, DIARRHEA, 06/17/17) Current Medications Home Meds and Scripts Medications Dose Route/Sig Max Daily Dose Days Date Category Dose Instructions [potassium chloride] 7.5 Ml PO DAILY 06/17/17 Reported Tresiba Flextouch (Insulin Degludec) 100 Unit/Ml Inj 3 Units SC HS 06/17/17 Reported Lasix (Furosemide) 40 Mg Tab 40 Mg PO DAILY 06/17/17 Reported Imdur Ext Rel (Isosorbide Mononitrate) 30 Mg Ertab 20 Mg PO TID 30 06/17/17 Reported Novolog Flexpen (Insulin Aspart) 100 Units/Ml Inj 2 Units SQ DIRECTED 06/17/17 Reported 2 UNITS WITH DINNER Apresoline (Hydralazine Hcl) 25 Mg Tab 25 Mg PO BID 30 03/03/17 Rx Lipitor (Atorvastatin) 40 Mg Tab 40 Mg PO HS 02/28/17 Reported Novolog Flexpen (Insulin Aspart) 100 Units/Ml Inj 5 Units SQ QAM 02/28/17 Reported 5 UNITS WITH BREAKFAST Coumadin (Warfarin Sod) 2 Mg Tab 1 Tab PO 2XWK 01/19/17 Reported Sat Coumadin (Warfarin Sod) 4 Mg Tab 1 Tab PO 5XWK 01/19/17 Reported everyday but Sat 2MG Toprol-Xl (Metoprolol Succinate) 25 Mg Tabcr 25 Mg PO DAILY 12/09/16 Reported Cordarone (Amiodarone Hcl) 200 Mg Tab 200 Mg PO DAILY 12/09/16 Reported Miralax (Polyethylene) 17 Gm Pow 17 Gm PO DAILY PRN 10/20/16 Rx Aspirin Ec (Aspirin) 81 Mg Tab 81 Mg PO DAILY 10/06/16 Reported Review of Systems Constitutional: No fever, No chills Respiratory: No cough, No shortness of breath Cardiac: No chest pain Abdomen: + pain, + GI bleeding, No nausea, No vomiting Physical Exam Date Time Temp Pulse Resp B/P (MAP) Pulse Ox O2 Delivery O2 Flow Rate FiO2 06/18/17 08:00 Nasal Cannula 2.0 06/18/17 07:39 36.8 60 16 154/67 (96) 96 06/18/17 07:11 36.5 59 18 154/61 95 2.0 06/18/17 06:05 36.5 59 16 126/67 99 2.0 06/18/17 05:35 36.7 59 16 135/57 99 2.0 06/18/17 05:05 36.7 61 18 152/76 99 2.0 06/18/17 04:41 36.5 57 18 149/65 97 2.0 06/18/17 04:00 99 Nasal Cannula 2.0 06/18/17 03:50 36.6 63 16 117/62 99 2.0 06/18/17 02:56 36.8 67 18 147/65 99 2.0 06/18/17 01:56 36.6 61 16 137/61 98 2.0 06/18/17 01:08 36.5 58 16 145/55 98 2.0 06/18/17 00:46 36.8 57 16 157/54 100 2.0 06/18/17 00:00 99 Nasal Cannula 2.0 06/17/17 23:24 36.5 63 16 149/53 99 2.0 06/17/17 23:23 36.7 62 18 149/53 99 2.0 06/17/17 22:56 36.6 60 18 131/61 98 20.0 06/17/17 22:03 36.9 58 20 188/72 98 2.0 06/17/17 21:56 36.9 60 16 188/72 99 2.0 06/17/17 21:31 36.8 62 20 178/53 99 4.0 06/17/17 21:00 37.1 60 20 183/63 99 2.0 06/17/17 20:30 36.7 63 18 162/57 99 2.0 06/17/17 20:00 61 100 2.0 06/17/17 19:20 82 20 134/73 96 06/17/17 19:15 63 21 100 06/17/17 19:00 60 15 99 06/17/17 18:55 37.1 60 18 162/76 98 06/17/17 18:46 64 115/46 06/17/17 18:38 36.5 59 15 165/54 99 06/17/17 18:01 64 22 133/59 100 Nasal Cannula 2.0 64 159/52 68 136/41 06/17/17 17:12 Room Air 06/17/17 16:30 63 18 168/86 96 Room Air 06/17/17 16:27 63 06/17/17 15:06 36.7 60 16 171/64 95 Room Air General Appearance: WD/WN, no apparent distress Eyes: normal inspection, PERRL, EOMI Neck: supple, no JVD, trachea midline Respiratory/Chest: no respiratory distress, no accessory muscle use, + decreased breath sounds, + rhonchi (bases) Cardiovascular: regular rate, rhythm, no gallop, no murmur Abdomen: normal bowel sounds, soft, + tenderness (LLQ to mid lower abd ) Extremities: normal inspection, no pedal edema, no calf tenderness Neurologic/Psych: alert, normal mood/affect, oriented x 3 Skin: normal color, no jaundice, no rash Laboratory Results Last 24 Hours Test 06/17/17 15:50 06/17/17 15:57 06/17/17 18:12 06/17/17 20:17 White Blood Count 9.15 K/uL Red Blood Count 2.36 M/uL Hemoglobin 7.1 g/dL Hematocrit 21.6 % Mean Corpuscular Volume 91.5 fL Mean Corpuscular Hemoglobin 30.1 pg Mean Corpuscular Hemoglobin Concent 32.9 g/dl Platelet Count 246 K/uL Mean Platelet Volume 8.9 fL Neutrophils (%) (Auto) 81.8 % Lymphocytes (%) (Auto) 9.1 % Monocytes (%) (Auto) 8.0 % Eosinophils (%) (Auto) 0.8 % Basophils (%) (Auto) 0.1 % Neutrophils # (Auto) 7.49 K/uL Lymphocytes # (Auto) 0.83 K/uL Monocytes # (Auto) 0.73 K/uL Eosinophils # (Auto) 0.07 K/uL Basophils # (Auto) 0.01 K/uL RDW Standard Deviation 46.4 fL RDW Coefficient of Variation 13.9 % Immature Granulocyte % (Auto) 0.2 % Immature Granulocyte # (Auto) 0.02 K/uL Schistocytes 1+ Prothrombin Time 27.8 SECONDS Prothromb Time International Ratio 2.5 Activated Partial Thromboplast Time 41.8 SECONDS Partial Thromboplastin Ratio 1.6 Sodium Level 137 mmol/L Potassium Level 3.3 mmol/L Chloride Level 101 mmol/L Carbon Dioxide Level 31 mmol/L Anion Gap 5.0 mmol/L Blood Urea Nitrogen 40 mg/dl Creatinine 1.90 mg/dl Est Creatinine Clear Calc Drug Dose 18.1 ml/min Estimated GFR () 26.6 Estimated GFR (Non- 23.0 BUN/Creatinine Ratio 21.0 Random Glucose 176 mg/dl Calcium Level 7.9 mg/dl Total Bilirubin 0.3 mg/dl Direct Bilirubin 0.1 mg/dl Aspartate Amino Transf (AST/SGOT) 62 U/L Alanine Aminotransferase (ALT/SGPT) 109 U/L Alkaline Phosphatase 101 U/L Total Protein 5.2 gm/dl Albumin 2.4 gm/dl Bedside Troponin I 0.090 ng/ml Lactic Acid Level 1.1 mmol/L Troponin I 0.119 ng/ml Bedside Glucose 241 mg/dl Test 06/18/17 00:02 06/18/17 04:16 06/18/17 05:04 06/18/17 06:57 Troponin I 0.110 ng/ml 0.094 ng/ml Bedside Glucose 200 mg/dl 210 mg/dl White Blood Count 9.67 K/uL Red Blood Count 2.44 M/uL Hemoglobin 7.4 g/dL Hematocrit 21.9 % Mean Corpuscular Volume 89.8 fL Mean Corpuscular Hemoglobin 30.3 pg Mean Corpuscular Hemoglobin Concent 33.8 g/dl RDW Standard Deviation 47.5 fL RDW Coefficient of Variation 14.3 % Platelet Count 191 K/uL Mean Platelet Volume 9.3 fL Prothrombin Time 16.2 SECONDS Prothromb Time International Ratio 1.5 Sodium Level 139 mmol/L Potassium Level 3.3 mmol/L Chloride Level 103 mmol/L Carbon Dioxide Level 29 mmol/L Anion Gap 7.0 mmol/L Blood Urea Nitrogen 38 mg/dl Creatinine 1.70 mg/dl Est Creatinine Clear Calc Drug Dose 20.2 ml/min Estimated GFR () 30.5 Estimated GFR (Non- 26.3 BUN/Creatinine Ratio 22.4 Random Glucose 188 mg/dl Estimated Average Glucose 151 mg/dl Hemoglobin A1c 6.9 % Calcium Level 7.7 mg/dl Impression Patient is a 89 year old female w anemia, rectal bleeding and loose stools, abd pain (mid lower, LLQ). CT w evidence of sigmoid diverticulitis ? ischemic area as well suspected which may cause the bleeding. Plan - Cipro/Flagyl coverage - Cdiff negative, f/u stool cx. - IVF, supportive management. - CL diet, may advance slowly as tolerated - Monitor H/H and transfuse prn - Discussed w pt about possible colonoscopy eval, she is agreeable and we can help arrange this in outpt setting in 4 week's time. I have seen, examined, and agree with the plan as outlined by NOA Bridges -We'll concern for ischemic colitis given her history of diarrhea and now rectal bleeding with pain. Certainly diverticulitis could also be an etiology, agree with antibiotics conservative care, colonoscopy within 4-6 weeks given inflammation as well as stable hemodynamics.
[2017-06-18] MEDS: METOPROLOL SUCC 25MG EXT REL TAB PO SCH (12:15)
[2017-06-18 14:14] LABS: HEMATOCRIT 19.3 % (37-47)
--- NOTE | 2017-06-18 14:32 | Pharmacy Progress Note ---
Glycemic Control Progress Note Date of Service Jun 18, 2017. Scope Glycemic Pharmacist consulted for glycemic control to write orders per [facility] inpatient glycemic control protocol. Objective Accuchecks BSG (last 24hrs): Test 06/17/17 15:50 06/17/17 20:17 06/18/17 04:16 06/18/17 05:04 Random Glucose 176 mg/dl (70-99) 188 mg/dl (70-99) Bedside Glucose 241 mg/dl (70-90) 200 mg/dl (70-90) Test 06/18/17 06:57 06/18/17 11:13 Bedside Glucose 210 mg/dl (70-90) 297 mg/dl (70-90) HbA1c: Test 06/18/17 05:04 Hemoglobin A1c 6.9 % (4.5-5.6) H Recent Pertinent Medications The patient is currently receiving: * Basal insulin: none - patient has refused all doses * Correctional Insulin: Novolog Correction per scale ACHS Goal Range: Low 140 mg/dL - High 180 mg/dL Correction Factor: 25 mg/dL/unit * Prandial insulin: Per carb ratio of 1 unit per 9 grams CHO consumed * Oral Agents: none Outpatient Anti-Diabetic Meds Tresiba 3 units qHS plus Novolog 5 units with breakfast and 2 units with dinner (verified via [employer]) Assessment & Plan ASSESSMENT: * ADA & AACE recommend a goal blood sugar range 140-180 mg/dl for the majority of critically ill & non-critically ill patients. However, more stringent targets may be selected in individual cases. * Ms Stone is an 89 y/o F well known to the glycemic service. She is admitted today with a GI bleed. The patient's outpatient regimen is vastly different from previous admissions. The regimen is confirmed with [employer] and appears to provide adequate blood sugar control (although patient does have blood sugars near 300 mg/dL). It appears from the blood sugar logs that the patient's blood sugar rises throughout the day. 06/18/17 * Severe hyperglycemia today due to patient refusing doses of insulin. She refused both Lantus and Novolog last evening and this morning. The patient does not like to be administered insulin if BSG is less than 200 mg/dL due to "not feeling well". She refuses to take basal insulin the morning because she administers it in the evening at home. This is not unusual for the patient - she has also reported this to E during recent admission. * I contacted Dr. Everett to make him aware of the situation. I explained that IV insulin infusion may be our only option if patient continues to refuse SQ insulin. Dr. Everett will have discussion with the patient. * Will tighten CF/CR and add overnight checks since patient is near 300 mg/dL. PLAN FOR INPATIENT GLYCEMIC CONTROL: * Basal insulin * Lantus 5 units SQ for BSG 180 - 249 mg/dL * Lantus 10 units SQ for BSG 250 mg/dL or more * Correctional Insulin with NOVOLOG per scale ACHS - tighten parameters * Goal Range: Low 140 mg/dL - High 180 mg/dL * Correction Factor: 25 mg/dL/unit * Nutritional / Prandial insulin per carb ratio of 1 unit per 9 grams CHO consumed RECOMMENDATIONS FOR DISCHARGE: * * Please note that the plan above was derived based on current level of insulin resistance and hospital stress. These recommendations are appropriate for inpatient admission only. Plan of care upon discharge will need to be reassessed to avoid potential outpatient hypo/hyperglycemia. Thank you.
[2017-06-18] MEDS: ATORVASTATIN 40 MG TAB PO SCH (20:12)
[2017-06-18] MEDS: INSULIN GLARGINE SOLOSTAR 100 UNITS/ML 3 ML PEN SC SCH (20:46)
[2017-06-18 21:55] LABS: HEMATOCRIT 25.9 % (37-47)
[2017-06-18] MEDS: CEFTRIAXONE SOD INJ 1 GM in DEXTROSE 5% ADD-VANTAGE 50ML 50 ML IV SCH (22:34)
[2017-06-19 00:40] VITALS: BP 150/55; PULSE 65
[2017-06-19] MEDS ORDERED: INSULIN ASPART 100 UNITS/ML 3 ML PEN SC SCH (02:00)
[2017-06-19] MEDS: METRONIDAZOLE 500MG / NSS IV SCH ×3 (03:34→19:31)
[2017-06-19 03:51] VITALS: BP 166/47; PULSE 63; TEMP 36.7; O2SAT 91
[2017-06-19 06:01] LABS: INR 1.1 (0.9-1.1); PROTHROMBIN TIME (PATIENT) 12.3 SECONDS (9.0-12.0)
[2017-06-19] MEDS: ISOSORBIDE DINITRATE 20 MG TAB PO SCH ×3 (06:22→17:01)
[2017-06-19 06:23] LABS: BUN/CREATININE RATIO 18.5 (10-20); CALCIUM 7.8 mg/dl (8.5-10.1); CREATININE 1.7 mg/dl (0.60-1.20); MAGNESIUM 1.7 mg/dl (1.8-2.4); POTASSIUM 3.6 mmol/L (3.5-5.1)
[2017-06-19] MEDS: INSULIN ASPART 100 UNITS/ML 3 ML PEN SC SCH ×4 (07:38→20:52)
[2017-06-19 08:20] VITALS: BP 172/89; PULSE 76; TEMP 36.9; O2SAT 95
[2017-06-19] MEDS: METOPROLOL SUCC 25MG EXT REL TAB PO SCH (08:42)
[2017-06-19] MEDS: POTASSIUM CHLORIDE 20MEQ/15ML 473ML PO SCH (08:43)
[2017-06-19] MEDS: AMIODARONE 200 MG TAB PO SCH (08:43)
--- NOTE | 2017-06-19 10:55 | Progress Note ---
Internal Med Progress Note Date of Service: Jun 19, 2017. Provider Documentation: SUBJECTIVE: Seen and examined at bedside Feeling better today Tolerating diet Had BM this morning with minimal blood Denies chest pain, SOB, abdominal pain, cough, wheezing Offers no other complaints OBJECTIVE: Vital Signs-as noted below Physical Exam: Vitals signs as noted above General Appearance:Thin, frail, no apparent distress Head: normocephalic, Atraumatic Eyes: normal inspection, EOMI, PERRL, Pale Neck: supple, Trachea midline Respiratory/Chest: Normal breath sounds, CTA Cardiovascular: S1, S2, No murmur Abdomen/GI:Soft, non tender, Bowel sounds present Extremities/Musculoskelatal:normal inspection, 1+ b/l edema Neurologic/Psych:grossly no focal neurological deficits Skin: normal color, warm Lab data as noted below. ASSESSMENT & PLAN: Patient is an 89 yr female with PMH of HTN, CKD IV, diastolic HF, DM II, A fib ( on coumadin) who presents with rectal bleeding and abdominal pain Bleeding Per Rectum: In setting of acute diverticulitis and on ASA,Coumadin therapy Acute blood loss anemia ?Ischemic colitis S/P 4 units PRBC, 2 units FFP and Vit K Monitor Hb: 9.2 today Transfuse PRN Hold ASA, coumadin Appreciate GI Input No plan for colonoscopy for now Avoid Cipro secondary to prolonged QTC Acute diverticulitis: CT abd: suggestive of acute diverticulitis Continue IV Abx: Ceftriaxone/Flagyl Day #3 Stool studies: negative Elevated troponin: In setting of CKD IV, DHF and Acute GI bleeding troponin trended down Likely demand ischemia Denies CP, SOB Hypomagnesemia: Replace and monitor P.afib: rate controlled Continue amiodarone for rate control No coumadin secondary to acute bleed Metoprolol decreased from 25 to 12.5mg for relative bradycardia DM II: Hold oral regimen SSI and Lantus, per pharm recs BG checks AC HS Hgb a1c: 6.9 Diastolic HF: Compensated Continue home regimen HTN: Elevated Continue current meds Hydralazine increased from 25 to 50mg BID Code status: Full code Disposition: Monitor in Tele Vital Signs: Date Time Temp Pulse Resp B/P (MAP) Pulse Ox O2 Delivery O2 Flow Rate FiO2 06/19/17 08:20 36.9 76 16 172/89 (116) 95 06/19/17 08:00 Room Air 06/19/17 04:00 Nasal Cannula 1.5 06/19/17 03:51 36.7 63 18 166/47 (86) 91 Nasal Cannula 1.5 06/19/17 00:40 65 150/55 (86) 06/19/17 00:00 Nasal Cannula 1.5 06/18/17 23:04 36.7 64 18 163/63 (96) 94 Nasal Cannula 1.5 06/18/17 20:39 36.8 63 18 187/66 99 1.0 06/18/17 20:30 36.8 63 18 187/66 (106) 99 Nasal Cannula 1.0 06/18/17 20:00 Nasal Cannula 1.0 06/18/17 19:30 36.8 64 18 164/67 96 2.0 06/18/17 19:00 36.8 64 16 167/68 94 2.0 06/18/17 18:30 36.9 66 18 158/57 97 3.0 06/18/17 18:14 36.5 66 20 192/70 06/18/17 17:54 36.8 65 16 176/66 97 3.0 06/18/17 17:00 36.8 68 18 132/58 100 3.0 06/18/17 16:45 36.8 69 16 151/54 (86) 95 Nasal Cannula 3.0 06/18/17 16:45 36.8 69 16 151/54 95 3.0 06/18/17 16:30 36.8 63 18 147/57 94 3.0 06/18/17 16:30 36.8 63 16 147/57 (87) 94 Nasal Cannula 3.0 06/18/17 16:15 36.8 64 16 150/62 (91) 99 Room Air 3.0 06/18/17 16:15 36.8 60 16 136/62 92 3.0 06/18/17 16:05 36.7 63 16 150/62 90 06/18/17 16:02 36.3 60 16 136/62 (86) 91 Room Air 06/18/17 16:00 Nasal Cannula 2.0 06/18/17 12:00 Room Air 06/18/17 11:44 36.8 61 18 148/66 (93) 95 Lab Results: Results Past 24 Hours Test 06/18/17 11:13 06/18/17 12:32 06/18/17 16:23 06/18/17 19:48 Range/Units Bedside Glucose 297 119 227 70-90 mg/dl Hemoglobin 6.6 12.0-16.0 g/dL Hematocrit 19.3 37-47 % Test 06/18/17 21:42 06/19/17 01:55 06/19/17 05:09 06/19/17 06:41 Range/Units Hemoglobin 9.0 9.2 12.0-16.0 g/dL Hematocrit 25.9 27.0 37-47 % Bedside Glucose 178 177 70-90 mg/dl Prothrombin Time 12.3 9.0-12.0 SECONDS Prothromb Time International Ratio 1.1 0.9-1.1 Sodium Level 137 136-145 mmol/L Potassium Level 3.6 3.5-5.1 mmol/L Chloride Level 103 98-107 mmol/L Carbon Dioxide Level 28 21-32 mmol/L Anion Gap 6.0 3-11 mmol/L Blood Urea Nitrogen 31 7-18 mg/dl Creatinine 1.70 0.60-1.20 mg/dl Est Creatinine Clear Calc Drug Dose 20.2 ml/min Estimated GFR () 30.5 Estimated GFR (Non- 26.3 BUN/Creatinine Ratio 18.5 10-20 Random Glucose 160 70-99 mg/dl Calcium Level 7.8 8.5-10.1 mg/dl Magnesium Level 1.7 1.8-2.4 mg/dl
[2017-06-19] MEDS ORDERED: MAGNESIUM SULFATE 1GM / D5W 1 GM in PREMIXED IN D5W 100 ML IV ONE (11:15)
[2017-06-19 11:18] VITALS: BP 158/66; PULSE 72; TEMP 36.8; O2SAT 96
[2017-06-19 16:15] VITALS: BP 175/69; PULSE 65; TEMP 37; O2SAT 91
[2017-06-19 17:01] LABS: HEMATOCRIT 28.2 % (37-47)
[2017-06-19 19:40] VITALS: BP 192/65; PULSE 65; TEMP 37.2; O2SAT 92
[2017-06-19] MEDS: ATORVASTATIN 40 MG TAB PO SCH (20:44)
[2017-06-19] MEDS: INSULIN GLARGINE SOLOSTAR 100 UNITS/ML 3 ML PEN SC SCH (20:53)
[2017-06-19] MEDS: CEFTRIAXONE SOD INJ 1 GM in DEXTROSE 5% ADD-VANTAGE 50ML 50 ML IV SCH (22:50)
[2017-06-20] VITALS (7 sets, daily range): BP systolic 154–184; BP diastolic 53–69; PULSE 66–73; TEMP 36.6–37.3; O2SAT 90–95
[2017-06-20] MEDS: METRONIDAZOLE 500MG / NSS IV SCH ×3 (03:20→20:00)
[2017-06-20 07:17] LABS: HEMATOCRIT 28.9 % (37-47)
[2017-06-20 07:52] LABS: BUN/CREATININE RATIO 15.1 (10-20); CREATININE 1.7 mg/dl (0.60-1.20); POTASSIUM 3.6 mmol/L (3.5-5.1)
[2017-06-20] MEDS: ISOSORBIDE DINITRATE 20 MG TAB PO SCH ×3 (08:42→17:34)
[2017-06-20] MEDS: METOPROLOL SUCC 25MG EXT REL TAB PO SCH (08:44)
[2017-06-20] MEDS: AMIODARONE 200 MG TAB PO SCH (08:44)
[2017-06-20] MEDS: POTASSIUM CHLORIDE 20MEQ/15ML 473ML PO SCH (08:45)
[2017-06-20] MEDS: INSULIN ASPART 100 UNITS/ML 3 ML PEN SC SCH ×4 (08:50→20:58)
[2017-06-20] MEDS ORDERED: INSULIN GLARGINE SOLOSTAR 100 UNITS/ML 3 ML PEN SC SCH ×2 (09:00→21:00)
--- NOTE | 2017-06-20 10:51 | Progress Note ---
Internal Med Progress Note Date of Service: Jun 20, 2017. Provider Documentation: SUBJECTIVE: Seen and examined at bedside Doing well Offers no complaints Denies any bloody BM Denies chest pain, SOB, abdominal pain, cough, wheezing Offers no other complaints OBJECTIVE: Vital Signs-as noted below Physical Exam: Vitals signs as noted above General Appearance:Thin, frail, no apparent distress Head: normocephalic, Atraumatic Eyes: normal inspection, EOMI, PERRL, Pale Neck: supple, Trachea midline Respiratory/Chest: Normal breath sounds, CTA Cardiovascular: S1, S2, No murmur Abdomen/GI:Soft, non tender, Bowel sounds present Extremities/Musculoskelatal:normal inspection, 1+ b/l edema Neurologic/Psych:grossly no focal neurological deficits Skin: normal color, warm Lab data as noted below. ASSESSMENT & PLAN: Patient is an 89 yr female with PMH of HTN, CKD IV, diastolic HF, DM II, A fib ( on coumadin) who presents with rectal bleeding and abdominal pain Bleeding Per Rectum: In setting of acute diverticulitis and on ASA,Coumadin therapy Acute blood loss anemia ?Ischemic colitis S/P 4 units PRBC, 2 units FFP and Vit K Monitor Hb: 9.8 today Transfuse PRN Hold ASA, coumadin Appreciate GI Input No plan for colonoscopy for now Avoid Cipro secondary to prolonged QTC Acute diverticulitis: CT abd: suggestive of acute diverticulitis Continue IV Abx: Ceftriaxone/Flagyl Day #4 Stool studies: negative Hypoxia: Likely secondary pleural effusion restart lasix check repeat CXR Denies any cough, SOB, chest pain Elevated troponin: In setting of CKD IV, DHF and Acute GI bleeding troponin trended down Likely demand ischemia Denies CP, SOB Hypomagnesemia: monitor P.afib: rate controlled Continue amiodarone for rate control No coumadin secondary to acute bleed Metoprolol decreased from 25 to 12.5mg for relative bradycardia DM II: Hold oral regimen SSI and Lantus, per pharm recs BG checks AC HS Hgb a1c: 6.9 Diastolic HF: Compensated Continue home regimen HTN: Elevated Continue current meds Hydralazine increased from 25 to 50mg BID Code status: Full code Disposition: Monitor in Tele Vital Signs: Date Time Temp Pulse Resp B/P (MAP) Pulse Ox O2 Delivery O2 Flow Rate FiO2 06/20/17 07:30 Nasal Cannula 2.0 06/20/17 07:08 37.0 67 20 184/61 (102) 93 Nasal Cannula 2.0 06/20/17 04:00 37.3 69 17 166/53 (90) 93 Room Air 06/20/17 04:00 Nasal Cannula 2.0 06/20/17 00:00 37.2 73 17 164/57 (92) 93 Nasal Cannula 06/19/17 23:59 Nasal Cannula 2.0 06/19/17 20:00 Room Air 06/19/17 19:40 37.2 65 22 192/65 (107) 92 Room Air 06/19/17 16:15 37.0 65 22 175/69 (104) 91 Nasal Cannula 2.0 06/19/17 16:00 Room Air 06/19/17 12:00 Room Air 06/19/17 11:18 36.8 72 16 158/66 (96) 96 Lab Results: Results Past 24 Hours Test 06/19/17 16:26 06/19/17 16:41 06/19/17 20:33 06/20/17 06:55 Range/Units Bedside Glucose 204 196 70-90 mg/dl Hemoglobin 10.0 9.8 12.0-16.0 g/dL Hematocrit 28.2 28.9 37-47 % Sodium Level 137 136-145 mmol/L Potassium Level 3.6 3.5-5.1 mmol/L Chloride Level 103 98-107 mmol/L Carbon Dioxide Level 28 21-32 mmol/L Anion Gap 6.0 3-11 mmol/L Blood Urea Nitrogen 26 7-18 mg/dl Creatinine 1.70 0.60-1.20 mg/dl Est Creatinine Clear Calc Drug Dose 20.2 ml/min Estimated GFR () 30.5 Estimated GFR (Non- 26.3 BUN/Creatinine Ratio 15.1 10-20 Random Glucose 200 70-99 mg/dl Calcium Level 8.0 8.5-10.1 mg/dl Magnesium Level 2.0 1.8-2.4 mg/dl Test 06/20/17 07:10 Range/Units Bedside Glucose 199 70-90 mg/dl
[2017-06-20] MEDS: FUROSEMIDE 40 MG TAB PO SCH (11:51)
--- NOTE | 2017-06-20 13:42 | DIAGNOSTIC IMAGING REPORT ---
CHEST ONE VIEW PORTABLE CLINICAL HISTORY: Hypoxia. COMPARISON STUDY: Chest radiograph June 17, 2017. FINDINGS: There is no pneumothorax. Small right and trace left pleural effusions have increased. There is pulmonary vascular congestion with suspected mild pulmonary edema. Bibasilar opacities increased. IMPRESSION: 1. Pulmonary vascular congestion with suspected mild pulmonary edema. 2. Increase in small right and trace left pleural effusions with associated bibasilar opacities. Electronically signed by: Mark Olmos M.D. 06/20/2017 1:40 PM Dictated Date/Time: 06/20/2017 1:38 PM
--- NOTE | 2017-06-20 15:58 | Pharmacy Progress Note ---
Glycemic Control Progress Note Date of Service Jun 20, 2017. Scope Glycemic Pharmacist consulted for glycemic control to write orders per [facility] inpatient glycemic control protocol. Objective Accuchecks BSG (last 24hrs): Test 06/19/17 16:26 06/19/17 20:33 06/20/17 06:55 06/20/17 07:10 Bedside Glucose 204 mg/dl (70-90) 196 mg/dl (70-90) 199 mg/dl (70-90) Random Glucose 200 mg/dl (70-99) Test 06/20/17 11:24 Bedside Glucose 265 mg/dl (70-90) HbA1c: Test 06/18/17 05:04 Hemoglobin A1c 6.9 % (4.5-5.6) H Recent Pertinent Medications The patient is currently receiving: * Basal insulin: Lantus 10 units SQ HS * Correctional Insulin: Novolog Correction per scale ACHS Goal Range: Low 140 mg/dL - High 180 mg/dL Correction Factor: 25 mg/dL/unit * Prandial insulin: Per carb ratio of 1 unit per 9 grams CHO consumed * Oral Agents: none Outpatient Anti-Diabetic Meds Basal Insulin Bolus Insulin Assessment & Plan ASSESSMENT: * ADA & AACE recommend a goal blood sugar range 140-180 mg/dl for the majority of critically ill & non-critically ill patients. However, more stringent targets may be selected in individual cases. * Ms Stone is an 89 y/o F well known to the glycemic service. She is admitted today with a GI bleed. The patient's outpatient regimen is vastly different from previous admissions. The regimen is confirmed with [employer] and appears to provide adequate blood sugar control (although patient does have blood sugars near 300 mg/dL). It appears from the blood sugar logs that the patient's blood sugar rises throughout the day. 06/18/17 * Severe hyperglycemia today due to patient refusing doses of insulin. She refused both Lantus and Novolog last evening and this morning. The patient does not like to be administered insulin if BSG is less than 200 mg/dL due to "not feeling well". She refuses to take basal insulin the morning because she administers it in the evening at home. This is not unusual for the patient - she has also reported this to CDE during recent admission. * I contacted Dr. Everett to make him aware of the situation. I explained that IV insulin infusion may be our only option if patient continues to refuse SQ insulin. Dr. Everett will have discussion with the patient. * Will tighten CF/CR and add overnight checks since patient is near 300 mg/dL. 06/20/17 * BSGs ranged from 170 - 265 mg/dL over the past 24 hours. Patient received 25 units of insulin. * Fasting BSG of 199 mg/dL is elevated (likely basal deficiency from refused doses). Give additional 5 units this morning. * Will tighten CF/CR slightly. Avoiding making significant changes to parameters at this time since pt refuses Novolog when BSG is less than 200 mg/ dL. PLAN FOR INPATIENT GLYCEMIC CONTROL: * Basal insulin * Lantus 5 units SQ this morning * Lantus 10 units SQ tonight * Correctional Insulin with NOVOLOG per scale ACHS - tighten parameters * Goal Range: Low 140 mg/dL - High 180 mg/dL * Correction Factor: 20 mg/dL/unit * Nutritional / Prandial insulin per carb ratio of 1 unit per 8 grams CHO consumed RECOMMENDATIONS FOR DISCHARGE: * Good outpatient control evidenced by A1c of 6.9% on 06/18/17 * Resume home regimen of Tresiba 3 units HS + Novolog 5 units with breakfast and 2 units with super - titrate per outpatient provider * Please note that the plan above was derived based on current level of insulin resistance and hospital stress. These recommendations are appropriate for inpatient admission only. Plan of care upon discharge will need to be reassessed to avoid potential outpatient hypo/hyperglycemia. Thank you.
[2017-06-20] MEDS ORDERED: FUROSEMIDE INJ 40 MG in SYRINGE 0 ML IV ONE (17:00)
[2017-06-20] MEDS: ATORVASTATIN 40 MG TAB PO SCH (20:42)
[2017-06-20] MEDS: CEFTRIAXONE SOD INJ 1 GM in DEXTROSE 5% ADD-VANTAGE 50ML 50 ML IV SCH (23:00)
[2017-06-21] MEDS: METRONIDAZOLE 500MG / NSS IV SCH ×3 (04:00→20:29)
[2017-06-21 04:09] VITALS: BP 152/60; PULSE 68; TEMP 36.4; O2SAT 95
[2017-06-21 07:28] LABS: HEMATOCRIT 26.6 % (37-47); MEAN CELL VOLUME 89.6 fL (80-100); MEAN CORPUSCULAR HEMOGLOBIN 30.3 pg (25-34); MEAN CORPUSCULAR HGB CONC 33.8 g/dl (32-36); PLATELET COUNT 230 K/uL (130-400); RED BLOOD COUNT 2.97 M/uL (4.2-5.4); WHITE BLOOD COUNT 14.91 K/uL (4.8-10.8)
[2017-06-21] MEDS: INSULIN ASPART 100 UNITS/ML 3 ML PEN SC SCH ×4 (07:29→20:26)
[2017-06-21] MEDS: ISOSORBIDE DINITRATE 20 MG TAB PO SCH ×3 (07:30→18:09)
[2017-06-21] MEDS: AMIODARONE 200 MG TAB PO SCH (07:30)
[2017-06-21] MEDS: POTASSIUM CHLORIDE 20MEQ/15ML 473ML PO SCH (07:30)
[2017-06-21] MEDS: METOPROLOL SUCC 25MG EXT REL TAB PO SCH (07:31)
[2017-06-21] MEDS: FUROSEMIDE 40 MG TAB PO SCH (07:31)
[2017-06-21 07:42] VITALS: BP 152/61; PULSE 70; TEMP 37.1; O2SAT 88
[2017-06-21 08:01] LABS: BUN/CREATININE RATIO 14.6 (10-20); CALCIUM 7.9 mg/dl (8.5-10.1); CREATININE 1.8 mg/dl (0.60-1.20); POTASSIUM 2.9 mmol/L (3.5-5.1)
--- NOTE | 2017-06-21 09:37 | Progress Note ---
Internal Med Progress Note Date of Service: Jun 21, 2017. Provider Documentation: SUBJECTIVE: Seen and examined at bedside States feeling tired Offers no other complaints Denies any bloody BM Denies chest pain, SOB, abdominal pain, cough, wheezing OBJECTIVE: Vital Signs-as noted below Physical Exam: Vitals signs as noted above General Appearance:Thin, frail, no apparent distress Head: normocephalic, Atraumatic Eyes: normal inspection, EOMI, PERRL, Pale Neck: supple, Trachea midline Respiratory/Chest: Decreased breath sounds at bases Cardiovascular: S1, S2, No murmur Abdomen/GI:Soft, non tender, Bowel sounds present Extremities/Musculoskelatal:normal inspection, 1+ b/l edema Neurologic/Psych:grossly no focal neurological deficits Skin: normal color, warm Lab data as noted below. ASSESSMENT & PLAN: Patient is an 89 yr female with PMH of HTN, CKD IV, diastolic HF, DM II, A fib ( on coumadin) who presents with rectal bleeding and abdominal pain Bleeding Per Rectum: In setting of acute diverticulitis and on ASA,Coumadin therapy Acute blood loss anemia ?Ischemic colitis S/P 4 units PRBC, 2 units FFP and Vit K Monitor Hb: 9.0 today Transfuse PRN Hold ASA, coumadin for now Appreciate GI Input No plan for colonoscopy for now Avoid Cipro secondary to prolonged QTC Acute diverticulitis: CT abd: suggestive of acute diverticulitis Continue IV Abx: Ceftriaxone/Flagyl Day # 5 Stool studies: negative Hypoxia: Likely secondary pleural effusion Lasix resumed Repeat CXR:Mild pulm edema, Increase in small right and trace left pleural effusions with associated bibasilar opacities. Denies any cough, SOB, chest pain, dysuria, abd pain Will add Doxycycline to current regimen empirically Leukocytosis, afebrile: check procalcitonin, UA Oxygen PRN Elevated troponin: In setting of CKD IV, DHF and Acute GI bleeding troponin trended down Likely demand ischemia Denies CP, SOB Hypomagnesemia/Hypokalemia: Replace and monitor P.afib: rate controlled Continue amiodarone for rate control No coumadin secondary to acute bleed Metoprolol decreased from 25 to 12.5mg for relative bradycardia DM II: Hold oral regimen SSI and Lantus, per pharm recs BG checks AC HS Hgb a1c: 6.9 Diastolic HF: Continue home regimen HTN: Continue current meds Hydralazine increased from 25 to 50mg BID Code status: Full code DVT Px: SCDs for now Disposition: Monitor in Tele May benefit from Rehab but patient prefers to be discharged home Vital Signs: Date Time Temp Pulse Resp B/P (MAP) Pulse Ox O2 Delivery O2 Flow Rate FiO2 06/21/17 07:42 37.1 70 20 152/61 (91) 88 Room Air 06/21/17 04:09 36.4 68 18 152/60 (90) 95 Nasal Cannula 2.5 06/21/17 04:00 Nasal Cannula 2.0 06/20/17 23:59 Nasal Cannula 2.0 06/20/17 23:38 36.6 72 18 154/55 (88) 93 Nasal Cannula 2.5 06/20/17 20:00 Room Air 06/20/17 19:18 36.8 67 20 161/61 (94) 90 2.0 06/20/17 16:00 Nasal Cannula 2.0 06/20/17 15:34 36.7 66 20 180/69 (106) 95 Nasal Cannula 1.5 06/20/17 11:31 36.6 67 18 169/60 (96) 94 Nasal Cannula 2.0 06/20/17 11:20 Nasal Cannula 2.0 Lab Results: Results Past 24 Hours Test 06/20/17 11:24 06/20/17 15:59 06/20/17 16:00 06/20/17 20:52 Range/Units Bedside Glucose 265 247 217 125 70-90 mg/dl Test 06/21/17 06:52 06/21/17 07:13 06/21/17 09:52 Range/Units Bedside Glucose 104 70-90 mg/dl White Blood Count 14.91 4.8-10.8 K/uL Red Blood Count 2.97 4.2-5.4 M/uL Hemoglobin 9.0 12.0-16.0 g/dL Hematocrit 26.6 37-47 % Mean Corpuscular Volume 89.6 80-100 fL Mean Corpuscular Hemoglobin 30.3 25-34 pg Mean Corpuscular Hemoglobin Concent 33.8 32-36 g/dl RDW Standard Deviation 48.0 36.4-46.3 fL RDW Coefficient of Variation 14.6 11.5-14.5 % Platelet Count 230 130-400 K/uL Mean Platelet Volume 9.0 7.4-10.4 fL Sodium Level 137 136-145 mmol/L Potassium Level 2.9 3.5-5.1 mmol/L Chloride Level 102 98-107 mmol/L Carbon Dioxide Level 28 21-32 mmol/L Anion Gap 7.0 3-11 mmol/L Blood Urea Nitrogen 26 7-18 mg/dl Creatinine 1.80 0.60-1.20 mg/dl Est Creatinine Clear Calc Drug Dose 19.1 ml/min Estimated GFR () 28.4 Estimated GFR (Non- 24.5 BUN/Creatinine Ratio 14.6 10-20 Random Glucose 95 70-99 mg/dl Calcium Level 7.9 8.5-10.1 mg/dl
[2017-06-21] MEDS: POTASSIUM CHLR 10 MEQ / WTR 10 MEQ in PREMIXED WATER 100 ML IV SCH ×4 (09:59→14:19)
[2017-06-21 10:34] VITALS: BP 160/68; PULSE 67; TEMP 36.6; O2SAT 93
[2017-06-21] MEDS: DOXYCYCLINE IV 100 MG in DEXTROSE 5% 100ML 100 ML IV SCH ×2 (11:24→21:56)
--- NOTE | 2017-06-21 13:55 | Pharmacy Progress Note ---
Glycemic Control Progress Note Date of Service Jun 21, 2017. Scope Glycemic Pharmacist consulted for glycemic control to write orders per [facility] inpatient glycemic control protocol. Objective Accuchecks BSG (last 24hrs): Test 06/20/17 15:59 06/20/17 16:00 06/20/17 20:52 06/21/17 06:52 Bedside Glucose 247 mg/dl (70-90) 217 mg/dl (70-90) 125 mg/dl (70-90) 104 mg/dl (70-90) Test 06/21/17 07:13 06/21/17 11:12 Random Glucose 95 mg/dl (70-99) Bedside Glucose 203 mg/dl (70-90) HbA1c: Test 06/18/17 05:04 Hemoglobin A1c 6.9 % (4.5-5.6) H Recent Pertinent Medications The patient is currently receiving: * Basal insulin: Lantus 5 SQ AM + 10 units SQ HS * Correctional Insulin: Novolog Correction per scale ACHS Goal Range: Low 140 mg/dL - High 180 mg/dL Correction Factor: 20 mg/dL/unit * Prandial insulin: Per carb ratio of 1 unit per 8 grams CHO consumed * Oral Agents: none Outpatient Anti-Diabetic Meds Basal Insulin * Tresiba 3 units SQ HS Bolus Insulin * Novolog 5 units with breakfast and 2 units with dinner Assessment & Plan ASSESSMENT: * See progress note from 06/20/17 for more background info, in short: * Pt receiving SQ basal bolus insulin regimen for hyperglycemia secondary to baseline DM (outpatient regimen on hold), stress/infection * Patient is currently receiving an average of 38 units of insulin per day * 15 units of basal insulin * 23 units of prandial/correctional insulin * BSGs ranging 95 - 265 mg/dl over the past 24hrs * Changes needed to insulin regimen: * AM Fasting BSG = 104 mg/dl. This is at goal range for patient based on inpatient targets and co-morbidities. Fasting decreased from 199 mg/dL on 06/20 to 104 mg/dL today with just 5 additional units of Lantus, therefore, I will slightly back off Lantus tonight to avoid hypoglycemia. * Post-prandial BSGs are elevated but are improving compared to previous days. I am hesitant to make significant changes to CF/CR as patient is very sensitive to changes and regimen is already highly bolus weighted, therefore I will tighten only CR today. If lunch and dinner BSG remain elevated, consider using a tighter CF/CR at breakfast and lunch only. PLAN FOR INPATIENT GLYCEMIC CONTROL: * Basal insulin * Lantus 12 units SQ qHS * Correctional Insulin with NOVOLOG per scale ACHS * Goal Range: Low 140 mg/dL - High 180 mg/dL * Correction Factor: 20 mg/dL/unit * Tighten Nutritional / Prandial insulin per carb ratio to 1 unit per 7 grams CHO consumed RECOMMENDATIONS FOR DISCHARGE: * Good outpatient control evidenced by A1c of 6.9% on 06/18/17 * Resume home regimen of Tresiba 3 units HS + Novolog 5 units with breakfast and 2 units with super - titrate per outpatient provider * Please note that the plan above was derived based on current level of insulin resistance and hospital stress. These recommendations are appropriate for inpatient admission only. Plan of care upon discharge will need to be reassessed to avoid potential outpatient hypo/hyperglycemia. Thank you.
[2017-06-21 15:51] VITALS: BP 153/64; PULSE 64; TEMP 37; O2SAT 96
[2017-06-21] MEDS ORDERED: FUROSEMIDE INJ 20 MG in SYRINGE 0 ML IV SCH (17:15)
[2017-06-21 19:43] VITALS: BP 119/63; PULSE 54; TEMP 36.9; O2SAT 92
[2017-06-21] MEDS: ATORVASTATIN 40 MG TAB PO SCH (20:28)
[2017-06-21] MEDS: INSULIN GLARGINE SOLOSTAR 100 UNITS/ML 3 ML PEN SC SCH (20:33)
[2017-06-21] MEDS: CEFTRIAXONE SOD INJ 1 GM in DEXTROSE 5% ADD-VANTAGE 50ML 50 ML IV SCH (22:10)
[2017-06-21 22:37] LABS: MANUAL MICROSCOPIC REQUIRED? NO; REVIEW REQ? NO; URINE APPEARANCE CLEAR (CLEAR); URINE BILIRUBIN NEG (NEG); URINE COLOR YELLOW; URINE NITRITE NEG (NEG); URINE SPECIFIC GRAVITY 1.018 (1.000-1.030); UROBILINOGEN NEG (NEG); ZZUR CULT IF INDIC CLEAN CATCH NO
[2017-06-21 23:19] VITALS: BP 153/75; PULSE 67; TEMP 36.7; O2SAT 92
[2017-06-22 02:49] VITALS: BP 164/60; PULSE 69; TEMP 36.4; O2SAT 95
[2017-06-22] MEDS: METRONIDAZOLE 500MG / NSS IV SCH ×3 (04:26→20:11)
[2017-06-22] MEDS: ISOSORBIDE DINITRATE 20 MG TAB PO SCH ×3 (06:27→17:35)
[2017-06-22 06:32] LABS: HEMATOCRIT 27.3 % (37-47); MEAN CELL VOLUME 91.3 fL (80-100); MEAN CORPUSCULAR HEMOGLOBIN 29.8 pg (25-34); MEAN CORPUSCULAR HGB CONC 32.6 g/dl (32-36); MEAN PLATELET VOLUME 8.8 fL (7.4-10.4); PLATELET COUNT 256 K/uL (130-400); RED BLOOD COUNT 2.99 M/uL (4.2-5.4); WHITE BLOOD COUNT 12.08 K/uL (4.8-10.8)
[2017-06-22 07:05] LABS: BUN/CREATININE RATIO 13.5 (10-20); CREATININE 1.9 mg/dl (0.60-1.20); MAGNESIUM 1.6 mg/dl (1.8-2.4); POTASSIUM 2.9 mmol/L (3.5-5.1)
[2017-06-22 07:37] VITALS: BP 151/68; PULSE 66; TEMP 36.9; O2SAT 94
[2017-06-22] MEDS: POTASSIUM CHLORIDE 20MEQ/15ML 473ML PO SCH (07:40)
[2017-06-22] MEDS: AMIODARONE 200 MG TAB PO SCH (07:40)
[2017-06-22] MEDS: FUROSEMIDE 40 MG TAB PO SCH (07:41)
[2017-06-22] MEDS: METOPROLOL SUCC 25MG EXT REL TAB PO SCH (07:41)
[2017-06-22] MEDS: INSULIN ASPART 100 UNITS/ML 3 ML PEN SC SCH ×4 (07:46→20:14)
--- NOTE | 2017-06-22 09:21 | Pharmacy Progress Note ---
Glycemic Control Progress Note Date of Service Jun 22, 2017. Scope Glycemic Pharmacist consulted for glycemic control to write orders per [facility] inpatient glycemic control protocol. Objective Accuchecks BSG (last 24hrs): Test 06/21/17 11:12 06/21/17 16:00 06/21/17 20:19 06/22/17 06:19 Bedside Glucose 203 mg/dl (70-90) 261 mg/dl (70-90) 172 mg/dl (70-90) Random Glucose 135 mg/dl (70-99) Test 06/22/17 06:24 Bedside Glucose 140 mg/dl (70-90) HbA1c: Test 06/18/17 05:04 Hemoglobin A1c 6.9 % (4.5-5.6) H Recent Pertinent Medications Outpatient Anti-diabetic Regimen: * Tresiba 3 units qHS plus Novolog 5 units with breakfast and 2 units with dinner (verified via [employer]) * A1c = 8.1 % 06/05/17 Risk Factors for Insulin Resistance: * Infection: GI bleed in setting of acute diverticulitis (currently on rocephin/ Flagyl/doxycycline) * Diet: type 2 diabetic diet Outpatient Anti-Diabetic Meds see above Assessment & Plan ASSESSMENT: * ADA & AACE recommend a goal blood sugar range 140-180 mg/dl for the majority of critically ill & non-critically ill patients. However, more stringent targets may be selected in individual cases. Will utilize more stringent goal of 110-140mg/dl based on patient age & comorbidities. Additionally, tighter glycemic control is warranted to facilitate wound/infection healing. * Ms Stone is an 89 y/o F well known to the glycemic service. She is admitted today with a GI bleed. The patient's outpatient regimen is vastly different from previous admissions. The regimen is confirmed with [employer] and appears to provide adequate blood sugar control (although patient does have blood sugars near 300 mg/dL). It appears from the blood sugar logs that the patient's blood sugar rises throughout the day. * During this hospitalization, the patient has required around 30-35 units of insulin/day. Lantus has been titrated to 12 units SQ qPM and produces adequate fasting blood sugars (this morning's fasting was 140 mg/dL). * For post-prandial blood sugars, it appears that patient's breakfast carbohydrates are not well covered - patient's blood sugars rise throughout the day until there is insulin stacking in the evening. Patient's blood sugar decreases approximately 100 points from dinner to bedtime. In order to adequately cover carbohydrates, the goal range was decreased to 110-140 mg/dL as yesterday fasting was significantly below goal range. (insulin subtracted yesterday for lower fasting). Slightly loosened correction factor and carbohydrate ratio as patient is relatively labile. PLAN FOR INPATIENT GLYCEMIC CONTROL: * Basal insulin with LANTUS 12 units SQ qHS * Correctional Insulin with NOVOLOG per scale ACHS * Goal Range: Low 110 mg/dL - High 140 mg/dL * Correction Factor: 25 mg/dL/unit * Nutritional / Prandial insulin per carb ratio of 1 unit per 7 grams CHO consumed * Please note that the plan above was derived based on current level of insulin resistance and hospital stress. These recommendations are appropriate for inpatient admission only. Plan of care upon discharge will need to be reassessed to avoid potential outpatient hypo/hyperglycemia. Thank you.
[2017-06-22] MEDS ORDERED: POTASSIUM CHLORIDE 20 MEQ TABCR PO SCH (10:00)
[2017-06-22] MEDS: DOXYCYCLINE IV 100 MG in DEXTROSE 5% 100ML 100 ML IV SCH ×2 (10:18→21:47)
[2017-06-22] MEDS: MAGNESIUM SULFATE 1GM / D5W 1 GM in PREMIXED IN D5W 100 ML IV SCH ×2 (10:18→12:19)
[2017-06-22] MEDS ORDERED: NURSING VERBAL MED ORDER ONE (10:30)
[2017-06-22 10:47] VITALS: BP 151/68; PULSE 66; TEMP 36.9; O2SAT 94
[2017-06-22] MEDS: POTASSIUM CHLORIDE 20 MEQ/15 ML UDC PO SCH ×3 (11:17→15:51)
[2017-06-22 12:05] VITALS: BP 168/60; PULSE 61; TEMP 36.5; O2SAT 91
[2017-06-22] MEDS ORDERED: CALCIUM GLUCONATE 10% 1,000 MG in SODIUM CHLORIDE 0.9% 50ML 50 ML IV ONE (14:45)
[2017-06-22 15:58] VITALS: BP 157/63; PULSE 65; TEMP 36.3; O2SAT 91
--- NOTE | 2017-06-22 16:32 | Progress Note ---
Internal Med Progress Note Date of Service: Jun 22, 2017. Provider Documentation: SUBJECTIVE: no acute distress, breathing on room air, ambulatory with walker OBJECTIVE: Exam: General- NAD, speaking on room air Eyes- EOMI ENT- no oral or nasal exudates Neck- no JVD, nontender Lungs- CTABL Heart-RRR Abdomen-nontender, soft, nondistended Extremities- mildly more edema of right lower extremity than left but patient reports that this is chronic Neuro- AO x 3 ASSESSMENT & PLAN: Patient is an 89 yr female with PMH of HTN, CKD IV, diastolic HF, DM II, A fib ( on coumadin) who presents with rectal bleeding and abdominal pain. Patient's hemoglobin now stable. Has been on antibiotics for diverticulitis but recently expanded antibiotic coverage to include pneumonia because of concern for pulmonary effusion vs edema vs infiltrate on recent chest x ray in setting of leukocytosis. Patient afebrile and WBC downtrending from 14 to 12. Patient also having electrolyte deficiencies requiring IV and oral due to being on diuretics to treat for the pulmonary congestion however is clinically euvolemic. Will send add on for BNP. Will reassess by tomorrow if need for continuing the expanded antibiotics coverage and diuretic regimen and whether to de-escalate Bleeding Per Rectum: In setting of acute diverticulitis and on ASA,Coumadin therapy -CT abd: suggestive of acute diverticulitis -S/P 4 units PRBC, 2 units FFP and Vit K on this admission -Hgb now stable around 9 -GI has been following with patient's care but no plan for colonoscopy for now -on IV antibiotics Ceftriaxone from 06/17 and Flagyl from 06/17 Hypoxia: -CXR from 06/20 :Mild pulm edema, Increase in small right and trace left pleural effusions with associated bibasilar opacities. -Likely secondary pleural effusion and Lasix was resumed -was started on doxycycline from 06/21 in context of lung findings on imaging and leukocytosis of 14 on 06/21 -however has been afebrile and patient denies respiratory symptoms, procalcitonin was negative, UA was negative Elevated troponin In setting of CKD IV, DHF and Acute GI bleeding -troponin trended down and likely demand ischemia Diastolic HF: -Continue home regimen P.afib: -rate controlled -Metoprolol has been decreased on this admission from 25 to 12.5mg for relative bradycardia, Continue amiodarone for rate control -No Coumadin secondary to acute bleed -Avoid Cipro secondary to prolonged QTC -telemetry discontinued on 06/22/17 HTN: -Continue current meds -Hydralazine has been increased from 25 to 50mg BID on this admission Electrolytes -based on low serum calcium with elevated PTH, patient is hypoparathyroid, also is vitamin D deficient -patient receiving diuretics and correlates with hypokalemia -today given supplements for potassium, magnesium, and calcium DM II: -Hold oral regimen -continue sliding scale insulin and Lantus 12 units qhs -BG checks AC HS Code status: Full code DVT Px: SCDs for now Disposition: May benefit from Rehab but patient prefers to be discharged home Vital Signs: Date Time Temp Pulse Resp B/P (MAP) Pulse Ox O2 Delivery O2 Flow Rate FiO2 06/22/17 15:58 36.3 65 20 157/63 (94) 91 Room Air 06/22/17 13:51 Room Air 06/22/17 12:05 36.5 61 18 168/60 (96) 91 06/22/17 10:47 36.9 66 18 94 2.0 06/22/17 08:00 Room Air 06/22/17 07:37 36.9 66 18 151/68 (95) 94 06/22/17 04:00 Room Air 06/22/17 02:49 36.4 69 20 164/60 (94) 95 Nasal Cannula 2.0 06/21/17 23:59 Room Air 06/21/17 23:19 36.7 67 20 153/75 (101) 92 Room Air 06/21/17 20:00 Room Air 06/21/17 19:43 36.9 54 22 119/63 (81) 92 Room Air Lab Results: Results Past 24 Hours Test 06/21/17 20:19 06/22/17 06:19 06/22/17 06:24 06/22/17 11:39 Range/Units Bedside Glucose 172 140 287 70-90 mg/dl White Blood Count 12.08 4.8-10.8 K/uL Red Blood Count 2.99 4.2-5.4 M/uL Hemoglobin 8.9 12.0-16.0 g/dL Hematocrit 27.3 37-47 % Mean Corpuscular Volume 91.3 80-100 fL Mean Corpuscular Hemoglobin 29.8 25-34 pg Mean Corpuscular Hemoglobin Concent 32.6 32-36 g/dl RDW Standard Deviation 48.7 36.4-46.3 fL RDW Coefficient of Variation 14.7 11.5-14.5 % Platelet Count 256 130-400 K/uL Mean Platelet Volume 8.8 7.4-10.4 fL Sodium Level 135 136-145 mmol/L Potassium Level 2.9 3.5-5.1 mmol/L Chloride Level 100 98-107 mmol/L Carbon Dioxide Level 27 21-32 mmol/L Anion Gap 8.0 3-11 mmol/L Blood Urea Nitrogen 26 7-18 mg/dl Creatinine 1.90 0.60-1.20 mg/dl Est Creatinine Clear Calc Drug Dose 18.1 ml/min Estimated GFR () 26.6 Estimated GFR (Non- 23.0 BUN/Creatinine Ratio 13.5 10-20 Random Glucose 135 70-99 mg/dl Calcium Level 8.0 8.5-10.1 mg/dl Magnesium Level 1.6 1.8-2.4 mg/dl Test 06/22/17 15:24 06/22/17 15:25 06/22/17 16:38 Range/Units 25-Hydroxy Vitamin D Total 14.2 30-100 ng/ml Parathyroid Hormone (Intact) 65.4 11.1-79.5 pg/mL Bedside Glucose 253 70-90 mg/dl
[2017-06-22] MEDS: ATORVASTATIN 40 MG TAB PO SCH (19:30)
[2017-06-22] MEDS: MAGNESIUM OXIDE 400 MG TAB PO SCH (19:30)
[2017-06-22] MEDS: INSULIN GLARGINE SOLOSTAR 100 UNITS/ML 3 ML PEN SC SCH (20:15)
[2017-06-22] MEDS: CEFTRIAXONE SOD INJ 1 GM in DEXTROSE 5% ADD-VANTAGE 50ML 50 ML IV SCH (23:13)
[2017-06-23 00:01] VITALS: BP 165/63; PULSE 68; TEMP 36.9; O2SAT 90
[2017-06-23] MEDS: ONDANSETRON INJ 2 MG/ML 2 ML VIAL IV PRN ×2 (01:04→08:04)
[2017-06-23] MEDS: METRONIDAZOLE 500MG / NSS IV SCH ×3 (04:00→20:46)
[2017-06-23] MEDS: ISOSORBIDE DINITRATE 20 MG TAB PO SCH ×3 (06:18→17:57)
[2017-06-23] MEDS: POTASSIUM CHLORIDE 20 MEQ/15 ML UDC PO SCH (06:20)
[2017-06-23 06:40] LABS: BASO % 0.4 %; BASO ABS # 0.05 K/uL (0-0.2); COMPLETE YES; EOS % 5.6 %; HEMATOCRIT 28.9 % (37-47); IG% 0.4 %; LYMPH ABS # 0.81 K/uL (1.2-3.4); MEAN CELL VOLUME 90.3 fL (80-100); MEAN CORPUSCULAR HEMOGLOBIN 30.3 pg (25-34); MEAN CORPUSCULAR HGB CONC 33.6 g/dl (32-36); MEAN PLATELET VOLUME 8.9 fL (7.4-10.4); MONO % 6.8 %; NEUT % 80.8 %; PLATELET COUNT 321 K/uL (130-400); WHITE BLOOD COUNT 13.46 K/uL (4.8-10.8)
[2017-06-23 07:05] LABS: BUN/CREATININE RATIO 12.3 (10-20); POTASSIUM 3.5 mmol/L (3.5-5.1)
[2017-06-23 07:07] LABS: ALB/GLOB RATIO 0.7 (0.9-2)
[2017-06-23 07:18] VITALS: BP 134/57; PULSE 67; TEMP 36.7; O2SAT 91
[2017-06-23] MEDS ORDERED: CALCIUM GLUCONATE 10% 1,000 MG in SODIUM CHLORIDE 0.9% 50ML 50 ML IV STA (07:21)
[2017-06-23] MEDS ORDERED: POTASSIUM CHLORIDE 20 MEQ TABCR PO ONE (07:30)
[2017-06-23] MEDS: INSULIN ASPART 100 UNITS/ML 3 ML PEN SC SCH ×4 (08:04→20:57)
[2017-06-23] MEDS: METOPROLOL SUCC 25MG EXT REL TAB PO SCH (08:05)
[2017-06-23] MEDS: AMIODARONE 200 MG TAB PO SCH (08:05)
[2017-06-23] MEDS: MAGNESIUM OXIDE 400 MG TAB PO SCH ×2 (08:06→20:47)
[2017-06-23] MEDS: FUROSEMIDE 40 MG TAB PO SCH (08:06)
[2017-06-23] MEDS ORDERED: POTASSIUM CHLR 10 MEQ / WTR 10 MEQ in PREMIXED WATER 100 ML IV STA (08:23)
[2017-06-23] MEDS: POTASSIUM CHLORIDE 20MEQ/15ML 473ML PO SCH (08:57)
[2017-06-23] MEDS ORDERED: INSULIN GLARGINE SOLOSTAR 100 UNITS/ML 3 ML PEN SC ONE (09:00)
--- NOTE | 2017-06-23 09:17 | Pharmacy Progress Note ---
Glycemic Control Progress Note Date of Service Jun 23, 2017. Scope Glycemic Pharmacist consulted for glycemic control to write orders per [facility] inpatient glycemic control protocol. Objective Accuchecks BSG (last 24hrs): Test 06/22/17 11:39 06/22/17 16:38 06/22/17 20:03 06/23/17 06:25 Bedside Glucose 287 mg/dl (70-90) 253 mg/dl (70-90) 222 mg/dl (70-90) Random Glucose 159 mg/dl (70-99) Test 06/23/17 07:26 Bedside Glucose 207 mg/dl (70-90) HbA1c: Test 06/18/17 05:04 Hemoglobin A1c 6.9 % (4.5-5.6) H Recent Pertinent Medications Outpatient Anti-diabetic Regimen: * Tresiba 3 units qHS plus Novolog 5 units with breakfast and 2 units with dinner (verified via [employer]) * A1c = 8.1 % 06/05/17 Risk Factors for Insulin Resistance: * Infection: GI bleed in setting of acute diverticulitis and possible PNA ( currently on rocephin/Flagyl/doxycycline) * Diet: type 2 diabetic diet Outpatient Anti-Diabetic Meds see above Assessment & Plan ASSESSMENT: * ADA & AACE recommend a goal blood sugar range 140-180 mg/dl for the majority of critically ill & non-critically ill patients. However, more stringent targets may be selected in individual cases. Will utilize more stringent goal of 110-140mg/dl based on patient age & comorbidities. Additionally, tighter glycemic control is warranted to facilitate wound/infection healing. * Ms Stone is an 89 y/o F well known to the glycemic service. She is admitted with a GI bleed. The patient's outpatient regimen is vastly different from previous admissions. The regimen is confirmed with [employer] and appears to provide adequate blood sugar control (although patient does have blood sugars near 300 mg/dL). It appears from the blood sugar logs that the patient's blood sugar rises throughout the day. * During this hospitalization, the patient has required around 30-35 units of insulin/day. Lantus has been titrated to 12 units SQ qPM; however, this morning' s blood sugar was significantly elevated (this morning's fasting was 207 mg/dL) . Based upon the last two day's blood sugars, it appears that the patient requires more basal insulin. It appears that the tightened carbohydrate ratio provided adequate coverage, but the patient lacked overall coverage. Gave an additional 5 units this morning to make total of 17 units today. Plan for 15 units of Lantus tomorrow. * For post-prandial blood sugars, it appears that patient's breakfast carbohydrates are not well covered - patient's blood sugars rise throughout the day until there is insulin stacking in the evening. In order to adequately cover carbohydrates, the goal range was decreased to 110-140 mg/dL yesterday. Today, the correction factor was tightened slightly as well. PLAN FOR INPATIENT GLYCEMIC CONTROL: * Basal insulin with LANTUS 5 units SQ x 1 now then Lantus 12 units tonight for total of 17 units today * Correctional Insulin with NOVOLOG per scale ACHS * Goal Range: Low 110 mg/dL - High 140 mg/dL * Correction Factor: 20 mg/dL/unit * Nutritional / Prandial insulin per carb ratio of 1 unit per 7 grams CHO consumed RECOMMENDATIONS FOR DISCHARGE * Patient's HbA1C is appropriate for her age. She is managed by outpatient [facility] clinic through [employer]. It is reasonable to continue her home regimen and follow up with the clinic for further instruction. Thank you.
[2017-06-23] MEDS: DOXYCYCLINE IV 100 MG in DEXTROSE 5% 100ML 100 ML IV SCH ×2 (12:05→22:06)
--- NOTE | 2017-06-23 13:09 | DIAGNOSTIC IMAGING REPORT ---
ABD/PELVIS ORAL CONT ONLY HISTORY: 89 years-old Female diverticulitis, rule out abscess acute diverticulitis with clinical concern for possible abscess development. This is a follow-up study. COMPARISON: CT abdomen and pelvis 06/17/2017 TECHNIQUE: Multiple axial CT images of the abdomen and pelvis were obtained without IV contrast. Oral contrast was used. A dose lowering technique was used consistent with the principals of CORY. FINDINGS: There is increased size of the right pleural effusion, now moderate in size. Small left pleural effusion has developed. Bibasilar consolidative opacities are present as well, right greater than left. Moderate cardiomegaly with coronary arterial disease. Dense mitral annular calcifications are also again seen. Increased attenuation of the hepatic parenchyma is again seen. The gallbladder, spleen, pancreas and adrenal glands are unremarkable. The study is moderately limited secondary to patient motion. The right kidney is moderately atrophic. Kidneys and ureters are otherwise unremarkable. There is mild distention of the urinary bladder lumen. 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 No definite bulky retroperitoneal adenopathy. Oral contrast is seen within the distal esophagus with small sliding type hiatal hernia. There is no small bowel obstruction. There is a left inguinal hernia containing a nonobstructed loop of bowel on image 378. There is tortuosity of the sigmoid colon with redemonstration of a polypoid lesion along the anterior wall the mid sigmoid, 1.5 x 1.2 cm. There is decreased wall thickening and decreased inflammatory changes of the mid sigmoid colon without definite abscess or perforation identified. The appendix is contrast-filled and appears noninflamed. There is moderate diffuse body wall edema. Severe multilevel facet arthropathy is noted. Skeletal structures are osteopenic. Stepwise anterolisthesis of L4 on L5 and L3 on L4 appears unchanged with remote L4-L5 pars defects. IMPRESSION: 1. Decreased wall thickening and surrounding inflammatory stranding of the sigmoid colon suggests resolving acute diverticulitis. No definite perforation or abscess identified. 2. Small left inguinal hernia contains a nonobstructed loop of bowel. No bowel obstruction or pneumoperitoneum. 3. Polypoid lesion of the anterior mid sigmoid colon is again seen, 1.5 x 1.2 cm. Correlate with colonoscopy. 4. Increased size of bilateral pleural effusions, moderate on the right and small on the left with bibasilar consolidation. 5. Additional incidental findings as above. The above report was generated using voice recognition software. It may contain grammatical, syntax or spelling errors. Electronically signed by: Larry Trujillo M.D. 06/23/2017 1:08 PM Dictated Date/Time: 06/23/2017 12:56 PM
--- NOTE | 2017-06-23 13:24 | DIAGNOSTIC IMAGING REPORT ---
CT SCAN OF THE CHEST WITHOUT IV CONTRAST CLINICAL HISTORY: Pleural effusion. COMPARISON STUDY: Chest CT dated 10/12/2016. Chest x-ray dated 06/20/2017. TECHNIQUE: CT scan of the thorax was performed from the thoracic inlet to the upper abdomen. Images are reviewed in the axial, sagittal, and coronal planes. IV contrast was not administered for this examination. A dose lowering technique was utilized adhering to the principles of ALARA. The examination is significantly degraded by motion artifact. CT DOSE: 228.78 mGycm FINDINGS: Thyroid: Imaged portions of the thyroid gland are normal in size and attenuation. Thoracic aorta: There is atherosclerotic calcification of the thoracic aorta, which is normal in caliber and demonstrates standard 3-vessel arch anatomy. Heart: The heart is enlarged and without pericardial effusion. The coronary arteries and mitral annulus are densely calcified. There is diminished attenuation of the cardiac blood pool as compared to the myocardium suggesting anemia. The Main pulmonary arteries are dilated suggesting pulmonary artery hypertension. Lungs and pleural spaces: Evaluation of the lung parenchyma is significantly compromised by motion artifact. There are small left and moderate right pleural effusions with associated consolidation. Diffuse intralobular septal thickening is nonspecific and likely represents a component of congestive failure. The trachea is clear. Subpleural scarring in the anterior left upper lobe is similar to previous. There is patchy subpleural consolidation identified both the ventral right and left upper lobes. Mediastinum: There is no mediastinal lymphadenopathy. Soraida: Not well assessed without IV contrast. Axillae: There is no axillary lymphadenopathy. Upper abdomen: The liver appears hyperdense, possibly related to hemachromatosis or amiodarone therapy. Partially visualized upper abdominal viscera is otherwise within normal limits. Skeletal structures: The skeletal structures are osteopenic. Degenerative change is seen throughout the thoracic spine. No lytic or blastic bony lesions are identified. Soft tissues: There is body wall edema. IMPRESSION: 1. Motion degraded examination. 2. Cardiomegaly with evidence of congestive failure. 3. Moderate right and small left pleural effusions with bibasilar consolidation. This likely represents atelectasis. Clinical correlation will be required. 4. There are foci of subpleural consolidation in the right upper and left upper lobes. The appearance is nonspecific and this could represent a component of pulmonary edema, an infectious/inflammatory pneumonitis, or less likely developing pulmonary infarct. Clinical correlation will be essential. 5. The liver appears hyperdense, possibly related to amiodarone therapy or less likely hemachromatosis. Clinical correlation will be required. 6. Additional findings as above. Electronically signed by: Dain Mar M.D. 06/23/2017 1:23 PM Dictated Date/Time: 06/23/2017 1:04 PM
[2017-06-23 15:04] VITALS: BP 162/56; PULSE 63; TEMP 36.7; O2SAT 90
--- NOTE | 2017-06-23 15:29 | Progress Note ---
Internal Med Progress Note Date of Service: Jun 23, 2017. Provider Documentation: SUBJECTIVE: No acute distress, breathing on room air. Denies shortness of breath, chest pain , abdominal pain. Patient denies diarrhea and she notes that her stool has thin looking appearance but is solid. OBJECTIVE: Exam: General- NAD, speaking on room air Eyes- EOMI ENT- no oral or nasal exudates Neck- no JVD, nontender Lungs- breath sounds audible and appears equal bilateral lung garcia, no significant crackles audible, no wheezing Heart- regular rate Abdomen-nontender, soft, nondistended Extremities- no gross edema of lower extremities Neuro- AO x 3 ASSESSMENT & PLAN: Patient is an 89 yr female with PMH of HTN, CKD IV, diastolic HF, DM II, A fib ( on coumadin) who presents with rectal bleeding and abdominal pain. Patient's hemoglobin now stable. Has been on antibiotics for diverticulitis but recently expanded antibiotic coverage to include pneumonia because of concern for pulmonary effusion vs edema vs infiltrate on recent chest x ray in setting of leukocytosis. Patient afebrile and but WBC has been above 12,000 over the past 3 days despite being on expanded antibiotics coverage. Patient has not been on steroids. Patient denies diarrhea and abdomen is nontender so leukocytosis does not appear to be caused by C.diff. Patient was sent for CT abdomen/pelvis to rule out abscess and CT chest on to investigate pulmonary infiltrates. No abscess found and inflammation of bowels compared to admission CT scan appears to be decreasing. However appears to have moderately large right side pleural effusion. Will send additionally for ultrasound chest to try to quantify size of effusion and have consulted pulmonary service to evaluate whether thoracentesis is needed. Patient's BNP from 06/22/17 noted to be 4200. However on physical exam she does not appear to be grossly fluid overloaded. Bleeding Per Rectum: In setting of acute diverticulitis and on ASA,Coumadin therapy -CT abdomen on admission 06/17/17 suggestive of acute diverticulitis -S/P 4 units PRBC, 2 units FFP and Vit K on this admission -Hgb now stable around 9 -GI has been following with patient's care but no plan for colonoscopy for now -on IV antibiotics Ceftriaxone from 06/17 and Flagyl from 06/17 to date -CT abdomen on 06/23/17: Decreased wall thickening and surrounding inflammatory stranding of the sigmoid colon suggests resolving acute diverticulitis. No definite perforation or abscess identified. Polypoid lesion of the anterior mid sigmoid colon, 1.5 x 1.2 cm Pulmonary -hypoxia resolved -CXR from 06/20 :Mild pulm edema, Increase in small right and trace left pleural effusions with associated bibasilar opacities. Lasix was resumed -Was started on doxycycline from 06/21 in context of lung findings on imaging and leukocytosis of 14K on 06/21 -however has been afebrile and patient denies respiratory symptoms, procalcitonin was negative, UA was negative -CT chest on 06/23/17: "Cardiomegaly with evidence of congestive failure. Moderate right and small left pleural effusions with bibasilar consolidation. This likely represents atelectasis. Clinical correlation will be required. There are foci of subpleural consolidation in the right upper and left upper lobes. The appearance is nonspecific and this could represent a component of pulmonary edema, an infectious/inflammatory pneumonitis, or less likely developing pulmonary infarct." -will send for ultrasound chest to quantify amount of pleural effusion -pulmonary consult appreciated on whether thoracentesis is needed Cardiac -Elevated troponin in this admission setting of CKD IV, DHF and Acute GI bleeding; likely troponins from demand ischemia -Diastolic HF: on Lasix 40 mg daily, Isosorbide 20 mg daily -History of atrial fibrillation: rate controlled. Metoprolol has been decreased on this admission from 25 to 12.5mg for relative bradycardia. Continue amiodarone for rate control. No Coumadin secondary to acute bleed. Avoid Cipro secondary to prolonged QTC. Telemetry discontinued on 06/22/17 HTN: -Continue current meds -Hydralazine has been increased from 25 to 50mg BID on this admission, Continue with hydralazine Electrolytes -based on low serum calcium with elevated PTH, patient is hypoparathyroid, also is vitamin D deficient -patient receiving diuretics and correlates with hypokalemia -today given supplements for potassium and calcium DM II: -Hold oral regimen -continue sliding scale insulin and Lantus 12 units qhs -BG checks AC HS Code status: Full code DVT Px: SCDs for now Disposition: May benefit from Rehab but patient prefers to be discharged home Vital Signs: Date Time Temp Pulse Resp B/P (MAP) Pulse Ox O2 Delivery O2 Flow Rate FiO2 06/23/17 08:15 Room Air 06/23/17 07:18 36.7 67 18 134/57 (82) 91 Room Air 06/23/17 00:01 Room Air 06/23/17 00:01 36.9 68 18 165/63 (97) 90 Room Air 06/22/17 20:00 Room Air 06/22/17 15:58 36.3 65 20 157/63 (94) 91 Room Air Lab Results: Results Past 24 Hours Test 06/22/17 15:24 06/22/17 15:25 06/22/17 16:38 06/22/17 20:03 Range/Units Pro-B-Type Natriuretic Peptide 4205 0-1800 pg/ml 25-Hydroxy Vitamin D Total 14.2 30-100 ng/ml Parathyroid Hormone (Intact) 65.4 11.1-79.5 pg/mL Bedside Glucose 253 222 70-90 mg/dl Test 06/23/17 06:25 06/23/17 07:26 06/23/17 11:39 Range/Units White Blood Count 13.46 4.8-10.8 K/uL Red Blood Count 3.20 4.2-5.4 M/uL Hemoglobin 9.7 12.0-16.0 g/dL Hematocrit 28.9 37-47 % Mean Corpuscular Volume 90.3 80-100 fL Mean Corpuscular Hemoglobin 30.3 25-34 pg Mean Corpuscular Hemoglobin Concent 33.6 32-36 g/dl Platelet Count 321 130-400 K/uL Mean Platelet Volume 8.9 7.4-10.4 fL Neutrophils (%) (Auto) 80.8 % Lymphocytes (%) (Auto) 6.0 % Monocytes (%) (Auto) 6.8 % Eosinophils (%) (Auto) 5.6 % Basophils (%) (Auto) 0.4 % Neutrophils # (Auto) 10.87 1.4-6.5 K/uL Lymphocytes # (Auto) 0.81 1.2-3.4 K/uL Monocytes # (Auto) 0.92 0.11-0.59 K/uL Eosinophils # (Auto) 0.76 0-0.5 K/uL Basophils # (Auto) 0.05 0-0.2 K/uL RDW Standard Deviation 48.4 36.4-46.3 fL RDW Coefficient of Variation 14.7 11.5-14.5 % Immature Granulocyte % (Auto) 0.4 % Immature Granulocyte # (Auto) 0.05 0.00-0.02 K/uL Sodium Level 132 136-145 mmol/L Potassium Level 3.5 3.5-5.1 mmol/L Chloride Level 98 98-107 mmol/L Carbon Dioxide Level 27 21-32 mmol/L Anion Gap 7.0 3-11 mmol/L Blood Urea Nitrogen 25 7-18 mg/dl Creatinine 2.00 0.60-1.20 mg/dl Est Creatinine Clear Calc Drug Dose 17.2 ml/min Estimated GFR () 25.0 Estimated GFR (Non- 21.6 BUN/Creatinine Ratio 12.3 10-20 Random Glucose 159 70-99 mg/dl Calcium Level 8.0 8.5-10.1 mg/dl Ionized Calcium 1.07 1.12-1.32 mmol/l Magnesium Level 2.0 1.8-2.4 mg/dl Total Bilirubin 0.3 0.2-1 mg/dl Aspartate Amino Transf (AST/SGOT) 52 15-37 U/L Alanine Aminotransferase (ALT/SGPT) 57 12-78 U/L Alkaline Phosphatase 100 45-117 U/L Total Protein 5.7 6.4-8.2 gm/dl Albumin 2.3 3.4-5.0 gm/dl Globulin 3.4 2.5-4.0 gm/dl Albumin/Globulin Ratio 0.7 0.9-2 Bedside Glucose 207 117 70-90 mg/dl
--- NOTE | 2017-06-23 16:00 | DIAGNOSTIC IMAGING REPORT ---
EFFUSION-CHEST/MEDIASTINUM ULTRASOUND CLINICAL HISTORY: quantify pleural effusion seen on chest CT scan COMPARISON STUDY: Chest CT 06/23/2017. FINDINGS: The moderate right pleural effusion demonstrates a volume of 1522 cc. This is marked for thoracentesis. The small left pleural effusion demonstrates a volume of 240 cc. This was not marked for thoracentesis due to its small size. IMPRESSION: Moderate right and small left pleural effusions as described above. The right pleural effusion was marked for thoracentesis. Electronically signed by: Reji Linn M.D. 06/23/2017 3:58 PM Dictated Date/Time: 06/23/2017 3:57 PM
[2017-06-23] MEDS: ATORVASTATIN 40 MG TAB PO SCH (20:47)
[2017-06-23] MEDS: INSULIN GLARGINE SOLOSTAR 100 UNITS/ML 3 ML PEN SC SCH (20:58)
[2017-06-23 22:21] VITALS: BP 129/57; PULSE 63; TEMP 36.7; O2SAT 90
[2017-06-24] VITALS (7 sets, daily range): BP systolic 127–153; BP diastolic 52–62; PULSE 59–72; TEMP 36.6–37; O2SAT 89–100
[2017-06-24] MEDS: CEFTRIAXONE SOD INJ 1 GM in DEXTROSE 5% ADD-VANTAGE 50ML 50 ML IV SCH (00:14)
[2017-06-24] MEDS: METRONIDAZOLE 500MG / NSS IV SCH ×3 (04:23→19:49)
[2017-06-24 05:54] LABS: BASO % 0.2 %; BASO ABS # 0.03 K/uL (0-0.2); COMPLETE YES; HEMATOCRIT 29.9 % (37-47); IG% 0.4 %; LYMPH % 3.9 %; LYMPH ABS # 0.53 K/uL (1.2-3.4); MEAN CELL VOLUME 92.3 fL (80-100); MEAN CORPUSCULAR HEMOGLOBIN 30.2 pg (25-34); MEAN CORPUSCULAR HGB CONC 32.8 g/dl (32-36); MEAN PLATELET VOLUME 8.8 fL (7.4-10.4); MONO % 6.5 %; PLATELET COUNT 320 K/uL (130-400); RED BLOOD COUNT 3.24 M/uL (4.2-5.4); WHITE BLOOD COUNT 13.71 K/uL (4.8-10.8)
[2017-06-24 06:17] LABS: INR 1.1 (0.9-1.1); PROTHROMBIN TIME (PATIENT) 11.5 SECONDS (9.0-12.0)
[2017-06-24 06:31] LABS: BUN/CREATININE RATIO 11.8 (10-20); CALCIUM 8.3 mg/dl (8.5-10.1); POTASSIUM 3.7 mmol/L (3.5-5.1)
[2017-06-24 06:33] LABS: ALB/GLOB RATIO 0.7 (0.9-2)
[2017-06-24] MEDS: ISOSORBIDE DINITRATE 20 MG TAB PO SCH ×3 (06:42→17:52)
[2017-06-24] MEDS: METOPROLOL SUCC 25MG EXT REL TAB PO SCH (09:38)
[2017-06-24] MEDS: FUROSEMIDE 40 MG TAB PO SCH (09:38)
[2017-06-24] MEDS: MAGNESIUM OXIDE 400 MG TAB PO SCH ×2 (09:39→19:54)
[2017-06-24] MEDS: POTASSIUM CHLORIDE 20MEQ/15ML 473ML PO SCH (09:39)
[2017-06-24] MEDS: AMIODARONE 200 MG TAB PO SCH (09:39)
[2017-06-24] MEDS: DOXYCYCLINE IV 100 MG in DEXTROSE 5% 100ML 100 ML IV SCH ×2 (09:40→21:44)
--- NOTE | 2017-06-24 09:41 | Pharmacy Progress Note ---
Glycemic Control Progress Note Date of Service Jun 24, 2017. Scope Glycemic Pharmacist consulted for glycemic control to write orders per [facility] inpatient glycemic control protocol. Objective Accuchecks BSG (last 24hrs): Test 06/23/17 11:39 06/23/17 16:36 06/23/17 20:05 06/24/17 05:40 Bedside Glucose 117 mg/dl (70-90) 129 mg/dl (70-90) 197 mg/dl (70-90) Random Glucose 124 mg/dl (70-99) Test 06/24/17 07:30 Bedside Glucose 105 mg/dl (70-90) HbA1c: Test 06/18/17 05:04 Hemoglobin A1c 6.9 % (4.5-5.6) H Recent Pertinent Medications Outpatient Anti-diabetic Regimen: * Tresiba 3 units qHS plus Novolog 5 units with breakfast and 2 units with dinner (verified via [facility]) * A1c = 8.1 % 06/05/17 Risk Factors for Insulin Resistance: * Infection: GI bleed in setting of acute diverticulitis and possible PNA ( currently on rocephin/Flagyl/doxycycline) * Diet: type 2 diabetic diet Outpatient Anti-Diabetic Meds see above Assessment & Plan ASSESSMENT: * ADA & AACE recommend a goal blood sugar range 140-180 mg/dl for the majority of critically ill & non-critically ill patients. However, more stringent targets may be selected in individual cases. Will utilize more stringent goal of 110-140mg/dl based on patient age & comorbidities. Additionally, tighter glycemic control is warranted to facilitate wound/infection healing. * Ms Stone is an 89 y/o F well known to the glycemic service. She is admitted with a GI bleed. The patient's outpatient regimen is vastly different from previous admissions. The regimen is confirmed with [facility] and appears to provide adequate blood sugar control (although patient does have blood sugars near 300 mg/dL). It appears from the blood sugar logs that the patient's blood sugar rises throughout the day. * During this hospitalization, the patient has required around 30-35 units of insulin/day. Lantus has been titrated to 12 units SQ qPM; this was increased yesterday to total of 17 units. Fasting this morning was 105 mg/dL (about 100 points lower than yesterday's fasting). Seventeen units may be too aggressive for patient so plan for 15 units of Lantus tomorrow. * For post-prandial blood sugars, it appears that correction factor adequately covers patient as evidence by decrease from breakfast to lunch without carbohydrates. However, once carbohydrates were consumed from dinner to bedtime , blood sugar increased by 50 points. Tightened carbohydrate ratio slightly. PLAN FOR INPATIENT GLYCEMIC CONTROL: * Basal insulin with LANTUS 15 SQ HS * Correctional Insulin with NOVOLOG per scale ACHS * Goal Range: Low 110 mg/dL - High 140 mg/dL * Correction Factor: 20 mg/dL/unit * Nutritional / Prandial insulin per carb ratio of 1 unit per 6 grams CHO consumed RECOMMENDATIONS FOR DISCHARGE * Patient's HbA1C is appropriate for her age. She is managed by outpatient [facility] clinic through [facility]. It is reasonable to continue her home regimen and follow up with the clinic for further instruction. Thank you.
[2017-06-24] MEDS: INSULIN ASPART 100 UNITS/ML 3 ML PEN SC SCH ×4 (09:45→20:55)
--- NOTE | 2017-06-24 11:33 | PULMONARY CONSULTATION ---
DATE OF CONSULTATION: 06/24/2017 DATE OF CONSULTATION: 06/24/2017 TIME: 9:50 a.m. REPORT OF CONSULTATION: The patient was seen in room 420. Consultation is requested regarding pleural effusions. The patient is an 89-year-old female who presented to the Emergency Room on 06/17/2017 with rectal bleeding. The patient was on Coumadin. She was having diarrhea. She was having some abdominal pain. The pain was more on the right than the left. The blood was bright red. She had had weakness and fatigue. She had been having some diarrhea intermittently for about a month. This was the first she had noticed blood however. She has been undergoing an evaluation for this problem. She was felt to have acute diverticulitis. She has been improving with her current treatment. Overall, she is doing well. She remains weak. The patient lives at home with 2 sons. Apparently they do work. The patient has some aides coming to assist her in the afternoon hours several days per week. The patient does have to go up steps. She has been weak going up the steps. She states she walks up one step at a time. She has not noticed significant shortness of breath. She has not exerted herself however since she is in the hospital. She has just a slight cough. It is very minimal. There has been no sputum production. The patient denies having prior lung problems other than the fact that she has had pneumonia. She states that she had pneumonia last September when she had influenza. The patient has never smoked. Alcohol use is rare. PAST SURGICAL HISTORY: 1. Cataract surgery. 2. Hernia repair. 3. Laminectomy. 4. Left breast lumpectomy and lymph node biopsy. 5. Right knee arthroscopy. 6. Total abdominal hysterectomy. PAST MEDICAL HISTORY: 1. Hypertension. 2. Chronic kidney disease stage IV 3. Diastolic CHF. 4. Diabetes mellitus. 5. Atrial fibrillation. 6. Breast cancer as noted. 7. Hyperlipidemia. 8. Bladder cancer. 9. Melanoma involving the left shoulder. FAMILY HISTORY: Noncontributory in light of her age of 89 years. ALLERGIES: LISTED ALLERGIES TO METFORMIN WHICH CAUSED DIARRHEA, PIOGLITAZONE WHICH GAVE HIVES, ANASTROZOLE WHICH REPORTEDLY CAUSED ANAPHYLAXIS. MEDICATIONS AT HOME: 1. Amiodarone 200 mg daily. 2. Aspirin 81 mg daily. 3. Lipitor 40 mg daily. 4. Lasix 40 mg daily. 5. Hydralazine 25 mg b.i.d. 6. NovoLog as directed. 7. Isosorbide mononitrate 20 mg t.i.d. 8. Metoprolol 25 mg daily. 9. Coumadin. 10. Potassium. 11. MiraLax p.r.n. REVIEW OF SYSTEMS: GENERAL: Energy level has been markedly decreased over the past month. NEUROLOGIC: No syncope or near syncope. OPHTHALMIC: Denies visual complaints. EARS, NOSE, THROAT: Denies nasal congestion or coryza. CARDIAC: No chest pain or palpitations. PULMONARY: Minimal symptoms as noted above in the history of present illness. GASTROINTESTINAL: As noted above. GENITOURINARY: Denies complaints. MUSCULOSKELETAL: History of spinal stenosis and prior laminectomy, so she has some chronic back issues. DERMATOLOGIC: Some peripheral edema. ENDOCRINE: No lymphadenopathy. PHYSICAL EXAMINATION: VITAL SIGNS: The patient is a pleasant 89-year-old female who was cooperative, alert and oriented. She was in no distress. Temperature is 37 degrees. HEAD, EYES, EARS, NOSE, AND THROAT: Pupils were reactive to light. Implants were noted. Nares were clear. Mouth exam showed no erythema or exudate. NECK: Palpation of the neck reveals no lymph nodes or masses. CHEST: Inspection of the chest reveals a scar on the left breast from prior surgery. HEART: Rate was 67 beats per minute. The cardiac rhythm was regular. Blood pressure is 152/52. Systolic murmur grade 2/6 was heard. LUNGS: Lung garcia revealed mild rales posteriorly bilaterally. There were diminished breath sounds at both bases but especially on the right. There was dullness to percussion. Respiratory rate was 18 breaths per minute and not labored. Her oxygen saturation was 90% on room air. ABDOMEN: Soft. Bowel sounds were active. There was no tenderness to palpation. No definite mass was palpable. EXTREMITIES: Revealed +1 to +2 edema bilaterally. There was no cyanosis or clubbing. The right upper extremity was edematous secondary to intravenous infusions. A CAT scan of the chest done 06/23/2017 revealed cardiomegaly. There was a small left and moderate sized right pleural effusion with underlying consolidation or atelectasis. There was some scarring noted in the left upper lobe in the subpleural area. I was considering the possibility this could have been chronic from her radiation therapy. That is not definite. No adenopathy was noted. The CAT scan of the abdomen done on admission reported sigmoid diverticulosis with marked colonic wall thickening and surrounding inflammatory stranding suggesting diverticulitis. There was a left inguinal hernia containing a loop of nondilated ileum. There was increased attenuation of the liver which was new and reported considerations include amiodarone toxicity or hemochromatosis. The effusions at that time were reported as small on the right and trace on the left. Thus the pleural effusions have increased since her hospital stay. Chest ultrasound suggested approximately a volume of 1522 mL on the right and only 240 mL on the left. At the time of admission, the patient's hemoglobin was 7.1 with a hematocrit of 21.6. LABORATORY DATA: White count was 9.15. Currently the hemoglobin is 9.8. White count today is 13.71. Admission INR was 2.5 and was elevated appropriately for being on Coumadin. PTT was 41.8. Today's INR was 1.1. Urinalysis showed +2 protein, 5-10 WBCs. Electrolytes today show sodium 134, potassium 3.7, chloride 99, bicarb 27. BUN was 24 with a creatinine of 2.0. Admission BUN was 26 with a creatinine of 1.8. Calcium today is 8.3. AST was elevated at 60 today. These are similar to the other checks during her hospital stay. IMPRESSIONS: 1. Bilateral pleural effusions, right greater than left. 2. Acute diverticulitis with rectal bleeding. COMMENTS AND RECOMMENDATIONS: The patient has developed a significant increase in pleural effusions since she first came in. It may have been due to fluid resuscitation. She carries a diagnosis of diastolic CHF and she has renal insufficiency. Based upon the quantity of fluid on the right side I believe that thoracentesis would be indicated. I think she will tolerate her upcoming physical therapy and recuperation better. This was discussed with the patient and she is agreeable. Dr. Chatterjee from our pulmonary group will see her and will do the thoracentesis today. The fluid will be sent for the appropriate studies. Thank you for asking me to assist in her care.
--- NOTE | 2017-06-24 11:46 | Procedure Note ---
Procedure Note Date of Service Jun 24, 2017. Procedure Note Procedures: Left sided Thoracentesis Consent: obtained via the patient and placed into the chart Pre-Procedural Dx: Right-sided pleural effusion Post-Procedural Dx: Right-sided pleural effusion Analgesia: 8cc of 1% Liquid Lidocaine Procedure: The patient was placed in an upright position and thoracic US was used to select a spot for the procedure. A spot along the posterior axillary line was marked in the 7th intercostal space. The patient was then draped and prepped in a sterile fashion. A modified Seldinger technique was then used for catheter placement. Flowing this approximately 1000 cc of clear yellow pleural fluid was removed. The patient was then cleaned and placed at a 60 degree angle in the bed were the US was used to evaluate for possible pneumothorax. The US showed good lung sliding and [place] signs. EBL: None Complications: None
[2017-06-24 13:31] LABS: PLEURAL FLUID APPEARANCE CLEAR; PLEURAL FLUID COLOR PALE YELLOW; PLEURAL FLUID SOURCE RIGHT LUNG; PLEURAL FLUID WBC (A) 399 /uL
[2017-06-24 13:41] LABS: PLEURAL FLUID MONONUC RELAT 85.4 %; PLEURAL FLUID POLYNUC 14.6 %
--- NOTE | 2017-06-24 14:49 | DIAGNOSTIC IMAGING REPORT ---
CHEST 2 VIEWS ROUTINE CLINICAL HISTORY: s/p thoracentesis COMPARISON STUDY: 06/20/2017 FINDINGS: Mild stable cardiomegaly. Unchanging basilar infiltrative change. No pneumothorax status post thoracentesis. And upper lungs are considered generally clear. IMPRESSION: No evidence pneumothorax status post thoracentesis. Persistent basilar infiltrative change. The above report was generated using voice recognition software. It may contain grammatical, syntax or spelling errors. Electronically signed by: Jus Arnold M.D. 06/24/2017 2:48 PM Dictated Date/Time: 06/24/2017 2:47 PM
--- NOTE | 2017-06-24 16:57 | Progress Note ---
Internal Med Progress Note Date of Service: Jun 24, 2017. Provider Documentation: Subjective: Patient s/p thoracentesis with 1 liter of fluid removed, laboratory studies pending, follow up CXR negative for pneumothorax, patient breathing on nasal cannula, no shortness of breath. patient denies problems with breathing, denies chest pain, denies abdominal pain OBJECTIVE: Exam: General- NAD, on nasal cannula Eyes- EOMI ENT- no oral or nasal exudates Neck- no JVD, nontender Lungs- dressing over posterior right back, lungs sounds are equal in both sides , good inspiratory effort Heart- regular rate Abdomen-nontender, soft, nondistended Extremities- no gross edema of lower extremities Neuro- AO x 3 ASSESSMENT & PLAN: Patient is an 89 yr female with PMH of HTN, CKD IV, diastolic HF, DM II, A fib ( on coumadin) who presents with rectal bleeding and abdominal pain. Patient's hemoglobin now stable. Has been on antibiotics for diverticulitis but recently expanded antibiotic coverage to include pneumonia because of concern for pulmonary effusion vs edema vs infiltrate on recent chest x ray in setting of leukocytosis. Patient afebrile and but WBC has been above 12,000 despite being on expanded antibiotics coverage. Patient has not been on steroids. Patient denies diarrhea and abdomen is nontender so leukocytosis does not appear to be caused by C.diff. Patient's BNP from 06/22/17 noted to be 4200. However on physical exam she does not appear to be grossly fluid overloaded. Patient was sent for CT abdomen/pelvis to rule out abscess and CT chest on to investigate pulmonary infiltrates. No abscess found and inflammation of bowels compared to admission CT scan appears to be decreasing. However appears to have moderately large right side pleural effusion. S/p thoracentesis of 1 liter of pleural fluid removed and lab studies pending. Will continue current IV antibiotics until thoracentesis lab studies results Bleeding Per Rectum: In setting of acute diverticulitis and on ASA,Coumadin therapy -CT abdomen on admission 06/17/17 suggestive of acute diverticulitis -S/P 4 units PRBC, 2 units FFP and Vit K on this admission -Hgb now stable around 9 -GI has been following with patient's care but no plan for colonoscopy for now -on IV antibiotics Ceftriaxone from 06/17 and Flagyl from 06/17 to date -CT abdomen on 06/23/17: Decreased wall thickening and surrounding inflammatory stranding of the sigmoid colon suggests resolving acute diverticulitis. No definite perforation or abscess identified. Polypoid lesion of the anterior mid sigmoid colon, 1.5 x 1.2 cm Pulmonary -hypoxia resolved -CXR from 06/20 :Mild pulm edema, Increase in small right and trace left pleural effusions with associated bibasilar opacities. Lasix was resumed -Was started on doxycycline from 06/21 in context of lung findings on imaging and leukocytosis of 14K on 06/21 -however has been afebrile and patient denies respiratory symptoms, procalcitonin was negative, UA was negative -CT chest on 06/23/17: "Cardiomegaly with evidence of congestive failure. Moderate right and small left pleural effusions with bibasilar consolidation. This likely represents atelectasis. Clinical correlation will be required. There are foci of subpleural consolidation in the right upper and left upper lobes. The appearance is nonspecific and this could represent a component of pulmonary edema, an infectious/inflammatory pneumonitis, or less likely developing pulmonary infarct." -s/p thoracentesis with lab studies pending Cardiac -Elevated troponin in this admission setting of CKD IV, DHF and Acute GI bleeding; likely troponins from demand ischemia -Diastolic HF: on Lasix 40 mg daily, Isosorbide 20 mg daily -History of atrial fibrillation: rate controlled. Metoprolol has been decreased on this admission from 25 to 12.5mg for relative bradycardia. Continue amiodarone for rate control. No Coumadin secondary to acute bleed. Avoid Cipro secondary to prolonged QTC. Telemetry discontinued on 06/22/17 HTN: -Continue current meds -Hydralazine has been increased from 25 to 50mg BID on this admission, Continue with hydralazine Electrolytes -based on low serum calcium with elevated PTH, patient is hypoparathyroid, also is vitamin D deficient -patient receiving diuretics and correlates with hypokalemia -today given supplements for potassium and calcium DM II: -Hold oral regimen -continue sliding scale insulin and Lantus 12 units qhs -BG checks AC HS Code status: Full code DVT Px: SCDs for now Disposition: May benefit from Rehab but patient prefers to be discharged home Vital Signs: Date Time Temp Pulse Resp B/P (MAP) Pulse Ox O2 Delivery O2 Flow Rate FiO2 06/24/17 16:00 Room Air 06/24/17 15:27 36.7 60 17 132/61 (84) 93 Nasal Cannula 2.0 06/24/17 12:45 36.8 72 22 127/56 (79) 89 Room Air 06/24/17 08:00 Room Air 06/24/17 07:17 37.0 67 18 152/52 (85) 90 Room Air 06/24/17 00:05 Room Air 06/23/17 22:21 36.7 63 16 129/57 (81) 90 Room Air Lab Results: Results Past 24 Hours Test 06/23/17 20:05 06/24/17 00:00 06/24/17 05:40 06/24/17 07:30 Range/Units Bedside Glucose 197 105 70-90 mg/dl Pleural Fluid pH 7.41 7.3-7.4 White Blood Count 13.71 4.8-10.8 K/uL Red Blood Count 3.24 4.2-5.4 M/uL Hemoglobin 9.8 12.0-16.0 g/dL Hematocrit 29.9 37-47 % Mean Corpuscular Volume 92.3 80-100 fL Mean Corpuscular Hemoglobin 30.2 25-34 pg Mean Corpuscular Hemoglobin Concent 32.8 32-36 g/dl Platelet Count 320 130-400 K/uL Mean Platelet Volume 8.8 7.4-10.4 fL Neutrophils (%) (Auto) 85.0 % Lymphocytes (%) (Auto) 3.9 % Monocytes (%) (Auto) 6.5 % Eosinophils (%) (Auto) 4.0 % Basophils (%) (Auto) 0.2 % Neutrophils # (Auto) 11.65 1.4-6.5 K/uL Lymphocytes # (Auto) 0.53 1.2-3.4 K/uL Monocytes # (Auto) 0.89 0.11-0.59 K/uL Eosinophils # (Auto) 0.55 0-0.5 K/uL Basophils # (Auto) 0.03 0-0.2 K/uL RDW Standard Deviation 50.6 36.4-46.3 fL RDW Coefficient of Variation 14.9 11.5-14.5 % Immature Granulocyte % (Auto) 0.4 % Immature Granulocyte # (Auto) 0.06 0.00-0.02 K/uL Prothrombin Time 11.5 9.0-12.0 SECONDS Prothromb Time International Ratio 1.1 0.9-1.1 Sodium Level 134 136-145 mmol/L Potassium Level 3.7 3.5-5.1 mmol/L Chloride Level 99 98-107 mmol/L Carbon Dioxide Level 27 21-32 mmol/L Anion Gap 8.0 3-11 mmol/L Blood Urea Nitrogen 24 7-18 mg/dl Creatinine 2.00 0.60-1.20 mg/dl Est Creatinine Clear Calc Drug Dose 17.2 ml/min Estimated GFR () 25.0 Estimated GFR (Non- 21.6 BUN/Creatinine Ratio 11.8 10-20 Random Glucose 124 70-99 mg/dl Calcium Level 8.3 8.5-10.1 mg/dl Total Bilirubin 0.3 0.2-1 mg/dl Aspartate Amino Transf (AST/SGOT) 60 15-37 U/L Alanine Aminotransferase (ALT/SGPT) 56 12-78 U/L Alkaline Phosphatase 110 45-117 U/L Total Protein 5.6 6.4-8.2 gm/dl Albumin 2.4 3.4-5.0 gm/dl Globulin 3.2 2.5-4.0 gm/dl Albumin/Globulin Ratio 0.7 0.9-2 Test 06/24/17 11:30 06/24/17 11:41 Range/Units Pleural Fluid Source RIGHT LUNG Pleural Fluid Color PALE YELLOW Pleural Fluid Appearance CLEAR Pleural Fluid WBC 399 /uL Pleural Fluid RBC < 3000 /uL Pleural Fluid Polynuclear WBCs % 14.6 % Pleural Fluid Mononuclear WBCs % 85.4 % Pleural Fluid Total Protein 1.0 g/dl Pleural Fluid LDH 61 IU Pleural Fluid Glucose 148 mg/dl Pleural Fluid Amylase 7 U/L Bedside Glucose 183 70-90 mg/dl Microbiology Results 06/24/17 Acid Fast Stain, Received Pending 06/24/17 Mycobacterial Culture, Received Pending 06/24/17 Gram Stain - Final, Resulted 06/24/17 Bacterial Culture, Resulted Pending
[2017-06-24] MEDS: ATORVASTATIN 40 MG TAB PO SCH (19:54)
[2017-06-24] MEDS: INSULIN GLARGINE SOLOSTAR 100 UNITS/ML 3 ML PEN SC SCH (20:53)
[2017-06-24] MEDS ORDERED: INSULIN GLARGINE SOLOSTAR 100 UNITS/ML 3 ML PEN SC SCH (21:00)
[2017-06-25] MEDS: CEFTRIAXONE SOD INJ 1 GM in DEXTROSE 5% ADD-VANTAGE 50ML 50 ML IV SCH (00:52)
[2017-06-25] MEDS: METRONIDAZOLE 500MG / NSS IV SCH (04:00)
[2017-06-25 06:51] VITALS: BP 144/68; PULSE 55
[2017-06-25] MEDS: ISOSORBIDE DINITRATE 20 MG TAB PO SCH ×3 (06:51→18:48)
[2017-06-25 07:24] VITALS: BP 152/64; PULSE 62; TEMP 36.7; O2SAT 99
[2017-06-25] MEDS: AMIODARONE 200 MG TAB PO SCH (07:54)
[2017-06-25] MEDS: METOPROLOL SUCC 25MG EXT REL TAB PO SCH (07:55)
[2017-06-25] MEDS: FUROSEMIDE 40 MG TAB PO SCH (07:55)
[2017-06-25] MEDS: MAGNESIUM OXIDE 400 MG TAB PO SCH (07:55)
[2017-06-25] MEDS: POTASSIUM CHLORIDE 20MEQ/15ML 473ML PO SCH (07:56)
[2017-06-25 08:00] VITALS: O2SAT 98
[2017-06-25 08:06] LABS: BASO % 0.5 %; BASO ABS # 0.05 K/uL (0-0.2); EOS % 5.6 %; HEMATOCRIT 25.8 % (37-47); IG% 0.3 %; LYMPH % 6.5 %; LYMPH ABS # 0.63 K/uL (1.2-3.4); MEAN CELL VOLUME 92.5 fL (80-100); MEAN CORPUSCULAR HEMOGLOBIN 30.1 pg (25-34); MEAN CORPUSCULAR HGB CONC 32.6 g/dl (32-36); MEAN PLATELET VOLUME 8.7 fL (7.4-10.4); MONO % 8.6 %; NEUT % 78.5 %; PLATELET COUNT 298 K/uL (130-400); RED BLOOD COUNT 2.79 M/uL (4.2-5.4); WHITE BLOOD COUNT 9.74 K/uL (4.8-10.8)
[2017-06-25 08:34] LABS: BUN/CREATININE RATIO 12.3 (10-20); CALCIUM 7.8 mg/dl (8.5-10.1); CREATININE 2.3 mg/dl (0.60-1.20); POTASSIUM 3.8 mmol/L (3.5-5.1)
[2017-06-25 08:40] LABS: ALB/GLOB RATIO 0.7 (0.9-2)
[2017-06-25 08:51] LABS: COMPLETE YES
[2017-06-25] MEDS: INSULIN ASPART 100 UNITS/ML 3 ML PEN SC SCH ×4 (09:05→21:24)
[2017-06-25] MEDS: DOXYCYCLINE IV 100 MG in DEXTROSE 5% 100ML 100 ML IV SCH (10:00)
[2017-06-25] MEDS ORDERED: CIPROFLOXACIN 500 MG TAB PO STA (10:46)
[2017-06-25] MEDS ORDERED: INSULIN GLARGINE SOLOSTAR 100 UNITS/ML 3 ML PEN SC ONE (12:30)
[2017-06-25] MEDS: METRONIDAZOLE 500 MG TAB PO SCH ×2 (13:47→21:36)
[2017-06-25] MEDS: DOXYCYCLINE HYCLATE 100 MG CAP PO SCH ×2 (13:48→21:36)
[2017-06-25] MEDS: CEFUROXIME AXETIL 500 MG TAB PO SCH (13:48)
--- NOTE | 2017-06-25 13:50 | Pharmacy Progress Note ---
Glycemic Control Progress Note Date of Service Jun 25, 2017. Scope Glycemic Pharmacist consulted for glycemic control to write orders per [facility] inpatient glycemic control protocol. Objective Accuchecks BSG (last 24hrs): Test 06/24/17 16:47 06/24/17 19:32 06/25/17 07:46 06/25/17 11:58 Bedside Glucose 163 mg/dl (70-90) 269 mg/dl (70-90) 186 mg/dl (70-90) 287 mg/dl (70-90) Random Glucose 176 mg/dl (70-99) HbA1c: Test 06/18/17 05:04 Hemoglobin A1c 6.9 % (4.5-5.6) H Recent Pertinent Medications The patient is currently receiving: * Basal insulin: Lantus 15 units every 24 hours * Correctional Insulin: Novolog Correction per scale ACHS Goal Range: Low 110 mg/dL - High 140 mg/dL Correction Factor: 20 mg/dL/unit * Prandial insulin: Per carb ratio of 1 unit per 6 grams CHO consumed Assessment & Plan ASSESSMENT: * See progress note from 06/24 for more background info, in short: * Pt receiving SQ basal bolus insulin regimen for hyperglycemia secondary to baseline DM (outpatient regimen on hold),stress/infection * Patient is currently receiving an average of 45 units of insulin per day * 15 units of basal insulin * BSGs ranging 163 - 287 mg/dl over the past 24hrs * Not sure why BSGs are increasing, other than the fact that po intake is improving. I confirmed with the RN that patient is not snacking, etc. * Changes needed to insulin regimen: * AM Fasting BSG = 176 mg/dl. This is above goal range for patient based on inpatient targets and co-morbidities. Therefore Basal insulin needs increased. Since it is given at HS, will give an additional 5 units now then increase with tomorrow's dose. * Post-prandial BSGs are elevated/BSGs rise throughout the day therefore need to tighten CF/CR PLAN FOR INPATIENT GLYCEMIC CONTROL: * Give additional 5 units of Lantus now for total of 20 units today * TIGHTEN CR to 1 unit per 5 gm CHO RECOMMENDATIONS FOR DISCHARGE: * Please refer to 06/23 note Thank you.
[2017-06-25 14:10] VITALS: O2SAT 89
--- NOTE | 2017-06-25 15:07 | PULMONARY PROGRESS NOTE ---
DATE: 06/25/2017 TIME: 02:30 p.m. SUBJECTIVE: The patient feels some better since the pleural fluid was removed yesterday. 1000 mL of fluid were removed. She still feels very weak. She is not complaining much about her breathing. She does complain of diffuse aches and pains. She is upset because she states they made her wear oxygen last evening. PHYSICAL EXAMINATION: GENERAL: The patient looked comfortable at rest. Physical therapy was working with her. They were walking her in her room. The patient seemed frustrated with this whole process. Temperature is 36.7. She still looks slightly pale, but I thought looked better than she did when I saw her 2 days ago. HEART: Rate was 62 per minute. Blood pressure 152/64. LUNGS: Rodríguez reveal rales bilaterally. These are mainly heard posteriorly. The exact etiology of the rales is difficult to say. It is hard to determine if they were wet or dry. Her respiratory rate was 18 breaths per minute. Her oxygen saturation taken by myself was 89%, but she had just ambulated a bit. The site looks fine where the thoracentesis was done. LABORATORY DATA: Pleural fluid analysis showed a pH of 7.41. The pleural protein was only one and the pleural LDH was 61. These would be compatible with transudate. The glucose was 148 and amylase was 7 in pleural fluid. Pleural fluid for acid fast stain was negative. Pleural fluid Gram stain showed many WBCs, but no organisms. IMPRESSIONS: 1. Bilateral pleural effusions -- right greater than left -- transudative. 2. Acute diverticulitis with rectal bleeding -- improved. The patient from a respiratory perspective is clinically stable. She does have residual rales in the chest. I am not sure what the source of that is. I will sign off for now. Please call if you feel she needed to be reevaluated from a pulmonary perspective. MAN[place]EL[place]OD
[2017-06-25 15:27] VITALS: BP 152/55; PULSE 58; TEMP 36.5; O2SAT 92
--- NOTE | 2017-06-25 17:10 | Progress Note ---
Internal Med Progress Note Date of Service: Jun 25, 2017. Provider Documentation: Subjective: Patient at bedside breathing on room air. Denies shortness of breath, chest pain , abdominal pain. Patient able to eat food without discomfort. OBJECTIVE: Exam: General- NAD, speaking comfortably on room air Eyes- EOMI ENT- no oral or nasal exudates Neck- no JVD, nontender Lungs- lungs sounds are equal in both sides, good inspiratory effort Heart- regular rate, S1, S2 Abdomen-nontender, soft, nondistended Extremities- 1+ edema of lower extremities Neuro- AO x 3 ASSESSMENT & PLAN: Patient is an 89 yr female with PMH of HTN, CKD IV, diastolic HF, DM II, A fib ( on coumadin) who presented with rectal bleeding and abdominal pain. Has been on antibiotics for diverticulitis with expanded antibiotic coverage to include pneumonia because of concern for pulmonary effusion vs edema vs infiltrate on recent chest x ray in setting of leukocytosis. CT abdomen/pelvis on 06/23/[address] negative for abscess [address] chest on 06/23/17 with moderately large right side pleural effusion. S/p thoracentesis of 1 liter of pleural fluid removed on 2016 labs suggestive of transudate Pulmonary note: 06/25/2017 'Pleural fluid analysis showed a pH of 7.41. The pleural protein was only one and the pleural LDH was 61. These would be compatible with transudate. The glucose was 148 and ____ was 7 in pleural fluid. Pleural fluid for acid fast stain was negative. Pleural fluid Gram stain showed many WBCs, but no organisms." However there were "numerous histiocytes and benign mesothelial cells. On the ThinPrep slide there are also many benign mesothelial cells and histiocytes with a single group of atypical cells with higher NC ratios." and while the varnish blender does not have sufficient cells for full assessment metastatic disease can not be excluded as per cytology report CT abdomen on 06/23/17: Decreased wall thickening and surrounding inflammatory stranding of the sigmoid colon suggests resolving acute diverticulitis. No definite perforation or abscess identified. Polypoid lesion of the anterior mid sigmoid colon, 1.5 x 1.2 cm Since patient's leukocytosis have come down since the thoracentesis and patient' s hemoglobin generally stable, patient likely would benefit from GI follow up for colonoscopy as outpatient for followup of diverticulitis. Antibiotics history on this hospital stay -IV Ceftriaxone and IV Flagyl from 06/17 to 06/24/17 to treat for diverticulitis. Switched to oral Cefuroxime and Flagyl on 06/25/17 -IV Doxycycline from 06/21/17 to to treat for pneumonia. Switched to oral Doxycycline on 06/25/17 Blood Tranfusions on this hospital stay for diverticulitis / anemia -S/P 4 units PRBC, 2 units FFP and Vit K on this admission Cardiac -Elevated troponin in this admission setting of CKD IV, DHF and Acute GI bleeding; likely troponins from demand ischemia -Diastolic HF: on Lasix 40 mg daily, Isosorbide 20 mg daily -History of atrial fibrillation: rate controlled. Metoprolol has been decreased on this admission from 25 to 12.5mg for relative bradycardia. Continue amiodarone for rate control. No Coumadin secondary to acute bleed. Avoid Cipro secondary to prolonged QTC. Telemetry discontinued on 06/22/17 HTN: -Hydralazine has been increased from 25 to 50mg BID on this admission, Continue with hydralazine Electrolytes -based on low serum calcium with elevated PTH, patient is hypoparathyroid, also is vitamin D deficient: on calcium and vitamin D supplements -also treated for hypokalemia secondary to diuretics, on potassium supplements DM II: -Hold oral regimen -continue sliding scale insulin and Lantus 12 units qhs -BG checks AC HS Code status: Full code DVT Px: SCDs for now Disposition: discharge to home by tomorrow if further stable on oral antibiotics Vital Signs: Date Time Temp Pulse Resp B/P (MAP) Pulse Ox O2 Delivery O2 Flow Rate FiO2 06/25/17 16:00 Room Air 06/25/17 15:27 36.5 58 18 152/55 (87) 92 Room Air 06/25/17 14:10 89 06/25/17 08:00 98 Room Air 06/25/17 07:24 36.7 62 18 152/64 (93) 99 Room Air 06/25/17 06:51 55 144/68 (93) 06/25/17 00:04 Room Air 06/24/17 23:37 36.6 62 18 147/62 (90) 98 Nasal Cannula 1.0 06/24/17 21:00 100 Nasal Cannula 2.0 06/24/17 19:48 100 Nasal Cannula 2.0 06/24/17 19:42 59 153/52 (85) Lab Results: Results Past 24 Hours Test 06/24/17 19:32 06/25/17 07:46 06/25/17 11:58 06/25/17 16:38 Range/Units Bedside Glucose 269 186 287 285 70-90 mg/dl White Blood Count 9.74 4.8-10.8 K/uL Red Blood Count 2.79 4.2-5.4 M/uL Hemoglobin 8.4 12.0-16.0 g/dL Hematocrit 25.8 37-47 % Mean Corpuscular Volume 92.5 80-100 fL Mean Corpuscular Hemoglobin 30.1 25-34 pg Mean Corpuscular Hemoglobin Concent 32.6 32-36 g/dl Platelet Count 298 130-400 K/uL Mean Platelet Volume 8.7 7.4-10.4 fL Neutrophils (%) (Auto) 78.5 % Lymphocytes (%) (Auto) 6.5 % Monocytes (%) (Auto) 8.6 % Eosinophils (%) (Auto) 5.6 % Basophils (%) (Auto) 0.5 % Neutrophils # (Auto) 7.64 1.4-6.5 K/uL Lymphocytes # (Auto) 0.63 1.2-3.4 K/uL Monocytes # (Auto) 0.84 0.11-0.59 K/uL Eosinophils # (Auto) 0.55 0-0.5 K/uL Basophils # (Auto) 0.05 0-0.2 K/uL RDW Standard Deviation 50.5 36.4-46.3 fL RDW Coefficient of Variation 14.9 11.5-14.5 % Immature Granulocyte % (Auto) 0.3 % Immature Granulocyte # (Auto) 0.03 0.00-0.02 K/uL Sodium Level 132 136-145 mmol/L Potassium Level 3.8 3.5-5.1 mmol/L Chloride Level 100 98-107 mmol/L Carbon Dioxide Level 26 21-32 mmol/L Anion Gap 6.0 3-11 mmol/L Blood Urea Nitrogen 28 7-18 mg/dl Creatinine 2.30 0.60-1.20 mg/dl Est Creatinine Clear Calc Drug Dose 14.9 ml/min Estimated GFR () 21.1 Estimated GFR (Non- 18.2 BUN/Creatinine Ratio 12.3 10-20 Random Glucose 176 70-99 mg/dl Calcium Level 7.8 8.5-10.1 mg/dl Total Bilirubin 0.3 0.2-1 mg/dl Aspartate Amino Transf (AST/SGOT) 56 15-37 U/L Alanine Aminotransferase (ALT/SGPT) 50 12-78 U/L Alkaline Phosphatase 100 45-117 U/L Total Protein 5.0 6.4-8.2 gm/dl Albumin 2.0 3.4-5.0 gm/dl Globulin 3.0 2.5-4.0 gm/dl Albumin/Globulin Ratio 0.7 0.9-2
[2017-06-25] MEDS ORDERED: CIPROFLOXACIN 500 MG TAB PO SCH (20:00)
[2017-06-25] MEDS: CALCIUM 600MG + VIT D 400 IU TAB PO SCH (20:16)
[2017-06-25] MEDS: ATORVASTATIN 40 MG TAB PO SCH (21:17)
[2017-06-25] MEDS: INSULIN GLARGINE SOLOSTAR 100 UNITS/ML 3 ML PEN SC SCH (21:25)
[2017-06-26 00:34] VITALS: BP 148/67; PULSE 58; TEMP 36.7; O2SAT 99
[2017-06-26] MEDS: METRONIDAZOLE 500 MG TAB PO SCH ×2 (06:08→12:52)
[2017-06-26] MEDS: ISOSORBIDE DINITRATE 20 MG TAB PO SCH ×3 (06:08→17:29)
[2017-06-26 06:11] VITALS: BP 160/63; PULSE 61
[2017-06-26 07:23] VITALS: BP 161/61; PULSE 62; TEMP 36.8; O2SAT 92
[2017-06-26 07:43] LABS: BASO % 0.2 %; BASO ABS # 0.02 K/uL (0-0.2); EOS % 3.6 %; HEMATOCRIT 26.2 % (37-47); IG% 0.4 %; LYMPH % 6.5 %; LYMPH ABS # 0.72 K/uL (1.2-3.4); MEAN CELL VOLUME 91.9 fL (80-100); MEAN CORPUSCULAR HEMOGLOBIN 30.9 pg (25-34); MEAN CORPUSCULAR HGB CONC 33.6 g/dl (32-36); MEAN PLATELET VOLUME 8.9 fL (7.4-10.4); MONO % 6.7 %; NEUT % 82.6 %; PLATELET COUNT 324 K/uL (130-400); RED BLOOD COUNT 2.85 M/uL (4.2-5.4); WHITE BLOOD COUNT 11.02 K/uL (4.8-10.8)
[2017-06-26 08:22] LABS: CALCIUM 8.1 mg/dl (8.5-10.1); CREATININE 2.2 mg/dl (0.60-1.20); POTASSIUM 3.7 mmol/L (3.5-5.1)
[2017-06-26 08:25] LABS: ALB/GLOB RATIO 0.7 (0.9-2)
[2017-06-26 08:29] LABS: COMPLETE YES
[2017-06-26] MEDS: FUROSEMIDE 40 MG TAB PO SCH (08:48)
[2017-06-26] MEDS: CEFUROXIME AXETIL 500 MG TAB PO SCH (08:49)
[2017-06-26] MEDS: CALCIUM 600MG + VIT D 400 IU TAB PO SCH ×2 (08:49→20:10)
[2017-06-26] MEDS: DOXYCYCLINE HYCLATE 100 MG CAP PO SCH ×2 (08:50→20:10)
[2017-06-26] MEDS: POTASSIUM CHLORIDE 20MEQ/15ML 473ML PO SCH (08:51)
[2017-06-26] MEDS: INSULIN GLARGINE SOLOSTAR 100 UNITS/ML 3 ML PEN SC SCH ×2 (08:58→20:39)
[2017-06-26] MEDS: INSULIN ASPART 100 UNITS/ML 3 ML PEN SC SCH ×4 (08:58→20:36)
[2017-06-26] MEDS ORDERED: POTASSIUM CHLORIDE 10 MEQ TABCR PO STA (09:07)
[2017-06-26] MEDS ORDERED: POTASSIUM CHLORIDE 20MEQ/15ML 473ML PO STA (09:16)
[2017-06-26] MEDS: METOPROLOL SUCC 25MG EXT REL TAB PO SCH (09:37)
[2017-06-26] MEDS: AMIODARONE 200 MG TAB PO SCH (09:37)
--- NOTE | 2017-06-26 10:19 | Pharmacy Progress Note ---
Glycemic Control Progress Note Date of Service Jun 26, 2017. Scope Glycemic Pharmacist consulted for glycemic control to write orders per [facility] inpatient glycemic control protocol. Objective Accuchecks BSG (last 24hrs): Test 06/25/17 11:58 06/25/17 16:38 06/25/17 19:40 06/26/17 07:15 Bedside Glucose 287 mg/dl (70-90) 285 mg/dl (70-90) 224 mg/dl (70-90) Random Glucose 207 mg/dl (70-99) Test 06/26/17 07:36 Bedside Glucose 221 mg/dl (70-90) HbA1c: Test 06/18/17 05:04 Hemoglobin A1c 6.9 % (4.5-5.6) H Recent Pertinent Medications The patient is currently receiving: * Basal insulin: Lantus 20 units total yesterday * Correctional Insulin: Novolog Correction per scale ACHS Goal Range: Low 110 mg/dL - High 140 mg/dL Correction Factor: 20 mg/dL/unit * Prandial insulin: Per carb ratio of 1 unit per 5 grams CHO consumed Outpatient Anti-Diabetic Meds [Oral Agents] [Basal Insulin] [Bolus Insulin] or [GLP-1 RA] Assessment & Plan ASSESSMENT: * See progress note from 06/25 for more background info, in short: * Pt receiving SQ basal bolus insulin regimen for hyperglycemia secondary to baseline DM (outpatient regimen on hold),stress/infection * Patient is currently receiving an average of 60 units of insulin per day * 20 units of basal insulin * BSGs ranging 221-287 mg/dl over the past 24hrs * BSGs continue to be elevated, no major stressors added * Changes needed to insulin regimen: * AM Fasting BSG = 221 mg/dl. This is above goal range for patient based on inpatient targets and co-morbidities. Therefore Basal insulin needs increased to 25 units/day. This will also help to split needs 50/50 basal/bolus dosing. PLAN FOR INPATIENT GLYCEMIC CONTROL: * Increase Lantus to 10 units qAM, 15 units qHS RECOMMENDATIONS FOR DISCHARGE: * Okay to resume outpatient regimen of Tresiba and Novolog on discharge. Patient is requiring significantly more insulin while here; however, when I looked at the outpatient MTM notes, it seems like the patient's BSGs are always on the higher side and this is normal for her. Since most A1c is reasonable, would recommend to continue this regimen and continue f/u as an outpatient. Thank you.
[2017-06-26 14:58] VITALS: BP 136/51; PULSE 60; TEMP 36.6; O2SAT 100
[2017-06-26] MEDS: ATORVASTATIN 40 MG TAB PO SCH (20:36)
--- NOTE | 2017-06-26 21:04 | Progress Note ---
Internal Med Progress Note Date of Service: Jun 26, 2017. Provider Documentation: Subjective: Patient at bedside breathing on room air. Denies shortness of breath, chest pain , abdominal pain. Patient able to eat food without discomfort. Family member, patient's son at the bedside, was able to communicate with him the plans for discharge to home versus physical rehab. As per the patient's son ([phone] ) he will be able to meat pickler patient tomorrow however as per nurse, the patient is reconsidering physical rehab. OBJECTIVE: Exam: General- NAD, speaking comfortably on room air Eyes- EOMI ENT- no oral or nasal exudates Neck- no JVD, nontender Lungs- lungs sounds are equal in both sides, good inspiratory effort, generally clear to auscultation bilaterally except mildly reduced for lung bases Heart- regular rate, S1, S2 Abdomen-nontender, soft, nondistended Extremities- 1+ edema of lower extremities Neuro- AO x 3 ASSESSMENT & PLAN: Patient is an 89 yr female with PMH of HTN, CKD IV, diastolic HF, DM II, A fib ( on coumadin) who presented with rectal bleeding and abdominal pain. Has been on antibiotics for diverticulitis with expanded antibiotic coverage to include pneumonia because of concern for pulmonary effusion vs edema vs infiltrate on recent chest x ray in setting of leukocytosis. CT abdomen/pelvis on 06/23/17 negative for abscess but CT chest on 06/23/17 with moderately large right side pleural effusion. S/p thoracentesis of 1 liter of pleural fluid removed on 2016 labs suggestive of transudate Pulmonary note: 06/25/2017 'Pleural fluid analysis showed a pH of 7.41. The pleural protein was only one and the pleural LDH was 61. These would be compatible with transudate. The glucose was 148 and ____ was 7 in pleural fluid. Pleural fluid for acid fast stain was negative. Pleural fluid Gram stain showed many WBCs, but no organisms." However there were "numerous histiocytes and benign mesothelial cells. On the ThinPrep slide there are also many benign mesothelial cells and histiocytes with a single group of atypical cells with higher NC ratios." and while the campus receptionist does not have sufficient cells for full assessment metastatic disease can not be excluded as per cytology report CT abdomen on 06/23/17: Decreased wall thickening and surrounding inflammatory stranding of the sigmoid colon suggests resolving acute diverticulitis. No definite perforation or abscess identified. Polypoid lesion of the anterior mid sigmoid colon, 1.5 x 1.2 cm Since patient's leukocytosis have come down since the thoracentesis and patient' s hemoglobin generally stable, patient likely would benefit from GI follow up for colonoscopy as outpatient for followup of diverticulitis. Antibiotics history on this hospital stay -IV Ceftriaxone and IV Flagyl from 06/17 to 06/24/17 to treat for diverticulitis. Switched to oral Cefuroxime and Flagyl on 06/25/17. Last dose completed for 2016 for 10 day course. -IV Doxycycline from 06/21/17 to 06/24/17 to treat for pneumonia. Switched to oral Doxycycline on 06/25/17. Blood Tranfusions on this hospital stay for diverticulitis / anemia -S/P 4 units PRBC, 2 units FFP and Vit K on this admission Cardiac -Elevated troponin in this admission setting of CKD IV, DHF and Acute GI bleeding; likely troponins from demand ischemia -Diastolic HF: on Lasix 40 mg daily, Isosorbide 20 mg daily -History of atrial fibrillation: rate controlled. Metoprolol has been decreased on this admission from 25 to 12.5mg for relative bradycardia. Continue amiodarone for rate control. No Coumadin secondary to acute bleed. Avoid Cipro secondary to prolonged QTC. Telemetry discontinued on 06/22/17 HTN: -Hydralazine has been increased from 25 to 50mg BID on this admission, Continue with hydralazine Electrolytes -based on low serum calcium with elevated PTH, patient is hypoparathyroid, also is vitamin D deficient: on calcium and vitamin D supplements -also treated for hypokalemia secondary to diuretics, on potassium supplements DM II: -Hold oral regimen -continue sliding scale insulin and Lantus 12 units qhs -BG checks AC HS Code status: Full code DVT Px: SCDs for now Disposition: Family member, patient's son at the bedside, was able to communicate with him the plans for discharge to home versus physical rehab. 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 Vital Signs: Date Time Temp Pulse Resp B/P (MAP) Pulse Ox O2 Delivery O2 Flow Rate FiO2 06/26/17 20:05 Room Air 06/26/17 15:55 Room Air 06/26/17 14:58 36.6 60 16 136/51 (79) 100 Room Air 06/26/17 08:00 Room Air 06/26/17 07:23 36.8 62 18 161/61 (94) 92 Room Air 06/26/17 06:11 61 160/63 (95) 06/26/17 00:34 36.7 58 16 148/67 (94) 99 Room Air 06/26/17 00:05 Room Air 06/26/17 07:15 Red Blood Count 2.85, Mean Corpuscular Volume 91.9, Mean Corpuscular Hemoglobin 30.9, Mean Corpuscular Hemoglobin Concent 33.6, Mean Platelet Volume 8.9, Neutrophils (%) (Auto) 82.6, Lymphocytes (%) (Auto) 6.5, Monocytes (%) (Auto) 6.7, Eosinophils (%) (Auto) 3.6, Basophils (%) (Auto) 0.2, Neutrophils # (Auto) 9.10, Lymphocytes # (Auto) 0.72, Monocytes # (Auto) 0.74, Eosinophils # (Auto) 0.40, Basophils # (Auto) 0.02 06/26/17 07:15 Test 06/17/17 15:50 06/17/17 15:57 06/17/17 18:12 06/18/17 05:04 Schistocytes 1+ Activated Partial Thromboplast Time 41.8 SECONDS (21.0-31.0) Partial Thromboplastin Ratio 1.6 Direct Bilirubin 0.1 mg/dl (0-0.2) Bedside Troponin I 0.090 ng/ml (0-0.045) Lactic Acid Level 1.1 mmol/L (0.4-2.0) Estimated Average Glucose 151 mg/dl Hemoglobin A1c 6.9 % (4.5-5.6) Troponin I 0.094 ng/ml (0-0.045) Test 06/21/17 00:00 06/21/17 09:52 06/22/17 15:24 06/22/17 15:25 Urine Color YELLOW Urine Appearance CLEAR (CLEAR) Urine pH 5.0 (4.5-7.5) Urine Specific [place] 1.018 (1.000-1.030) Urine Protein 2+ (NEG) Urine Glucose (UA) NEG (NEG) Urine Ketones NEG (NEG) Urine Occult Blood NEG (NEG) Urine Nitrite NEG (NEG) Urine Bilirubin NEG (NEG) Urine Urobilinogen NEG (NEG) Urine Leukocyte Esterase TRACE (NEG) Urine WBC (Auto) 5-10 /hpf (0-5) Urine RBC (Auto) 0-4 /hpf (0-4) Urine Hyaline Casts (Auto) 1-5 /lpf (0-5) Urine Epithelial Cells (Auto) 10-20 /lpf (0-5) Urine Bacteria (Auto) NEG (NEG) Procalcitonin 0.24 ng/ml (0-0.5) Pro-B-Type Natriuretic Peptide 4205 pg/ml (0-1800) 25-Hydroxy Vitamin D Total 14.2 ng/ml (30-100) Parathyroid Hormone (Intact) 65.4 pg/mL (11.1-79.5) Test 06/23/17 06:25 06/24/17 00:00 06/24/17 05:40 06/24/17 11:30 Ionized Calcium 1.07 mmol/l (1.12-1.32) Magnesium Level 2.0 mg/dl (1.8-2.4) Pleural Fluid pH 7.41 (7.3-7.4) Prothrombin Time 11.5 SECONDS (9.0-12.0) Prothromb Time International Ratio 1.1 (0.9-1.1) Pleural Fluid Source RIGHT LUNG Pleural Fluid Color PALE YELLOW Pleural Fluid Appearance CLEAR Pleural Fluid WBC 399 /uL Pleural Fluid RBC < 3000 /uL Pleural Fluid Polynuclear WBCs % 14.6 % Pleural Fluid Mononuclear WBCs % 85.4 % Pleural Fluid Total Protein 1.0 g/dl Pleural Fluid LDH 61 IU Pleural Fluid Glucose 148 mg/dl Pleural Fluid Amylase 7 U/L Pleural Fluid Cholesterol see note Test 06/26/17 07:15 06/26/17 19:37 White Blood Count 11.02 K/uL (4.8-10.8) Red Blood Count 2.85 M/uL (4.2-5.4) Hemoglobin 8.8 g/dL (12.0-16.0) Hematocrit 26.2 % (37-47) Mean Corpuscular Volume 91.9 fL (80-100) Mean Corpuscular Hemoglobin 30.9 pg (25-34) Mean Corpuscular Hemoglobin Concent 33.6 g/dl (32-36) Platelet Count 324 K/uL (130-400) Mean Platelet Volume 8.9 fL (7.4-10.4) Neutrophils (%) (Auto) 82.6 % Lymphocytes (%) (Auto) 6.5 % Monocytes (%) (Auto) 6.7 % Eosinophils (%) (Auto) 3.6 % Basophils (%) (Auto) 0.2 % Neutrophils # (Auto) 9.10 K/uL (1.4-6.5) Lymphocytes # (Auto) 0.72 K/uL (1.2-3.4) Monocytes # (Auto) 0.74 K/uL (0.11-0.59) Eosinophils # (Auto) 0.40 K/uL (0-0.5) Basophils # (Auto) 0.02 K/uL (0-0.2) RDW Standard Deviation 50.1 fL (36.4-46.3) RDW Coefficient of Variation 14.9 % (11.5-14.5) Immature Granulocyte % (Auto) 0.4 % Immature Granulocyte # (Auto) 0.04 K/uL (0.00-0.02) Red Blood Cell Morphology Unremarkable Anion Gap 8.0 mmol/L (3-11) Est Creatinine Clear Calc Drug Dose 15.6 ml/min Estimated GFR () 22.3 Estimated GFR (Non- 19.2 BUN/Creatinine Ratio 15.0 (10-20) Calcium Level 8.1 mg/dl (8.5-10.1) Total Bilirubin 0.5 mg/dl (0.2-1) Aspartate Amino Transf (AST/SGOT) 55 U/L (15-37) Alanine Aminotransferase (ALT/SGPT) 55 U/L (12-78) Alkaline Phosphatase 106 U/L (45-117) Total Protein 5.0 gm/dl (6.4-8.2) Albumin 2.1 gm/dl (3.4-5.0) Globulin 2.9 gm/dl (2.5-4.0) Albumin/Globulin Ratio 0.7 (0.9-2) Bedside Glucose 128 mg/dl (70-90) Date/Time Source Procedure Growth Status 06/17/17 22:00 Stool WBC Smear - Final Complete 06/17/17 22:00 Stool Shiga Toxin Test - Final No E. Coli shiga toxin 1 or shiga tox... Complete 06/17/17 22:00 Stool Stool Culture - Final NO SALMONELLA ISOLATED,... Complete 06/24/17 11:30 Pleural Fluid (Thoracentesis) Right Acid Fast Stain - Final Resulted 06/24/17 11:30 Pleural Fluid (Thoracentesis) Right Mycobacterial Culture Pending Resulted Lab Results: Results Past 24 Hours Test 06/26/17 07:15 06/26/17 07:36 06/26/17 11:31 06/26/17 16:43 Range/Units White Blood Count 11.02 4.8-10.8 K/uL Red Blood Count 2.85 4.2-5.4 M/uL Hemoglobin 8.8 12.0-16.0 g/dL Hematocrit 26.2 37-47 % Mean Corpuscular Volume 91.9 80-100 fL Mean Corpuscular Hemoglobin 30.9 25-34 pg Mean Corpuscular Hemoglobin Concent 33.6 32-36 g/dl Platelet Count 324 130-400 K/uL Mean Platelet Volume 8.9 7.4-10.4 fL Neutrophils (%) (Auto) 82.6 % Lymphocytes (%) (Auto) 6.5 % Monocytes (%) (Auto) 6.7 % Eosinophils (%) (Auto) 3.6 % Basophils (%) (Auto) 0.2 % Neutrophils # (Auto) 9.10 1.4-6.5 K/uL Lymphocytes # (Auto) 0.72 1.2-3.4 K/uL Monocytes # (Auto) 0.74 0.11-0.59 K/uL Eosinophils # (Auto) 0.40 0-0.5 K/uL Basophils # (Auto) 0.02 0-0.2 K/uL RDW Standard Deviation 50.1 36.4-46.3 fL RDW Coefficient of Variation 14.9 11.5-14.5 % Immature Granulocyte % (Auto) 0.4 % Immature Granulocyte # (Auto) 0.04 0.00-0.02 K/uL Red Blood Cell Morphology Unremarkable Sodium Level 133 136-145 mmol/L Potassium Level 3.7 3.5-5.1 mmol/L Chloride Level 100 98-107 mmol/L Carbon Dioxide Level 25 21-32 mmol/L Anion Gap 8.0 3-11 mmol/L Blood Urea Nitrogen 33 7-18 mg/dl Creatinine 2.20 0.60-1.20 mg/dl Est Creatinine Clear Calc Drug Dose 15.6 ml/min Estimated GFR () 22.3 Estimated GFR (Non- 19.2 BUN/Creatinine Ratio 15.0 10-20 Random Glucose 207 70-99 mg/dl Calcium Level 8.1 8.5-10.1 mg/dl Total Bilirubin 0.5 0.2-1 mg/dl Aspartate Amino Transf (AST/SGOT) 55 15-37 U/L Alanine Aminotransferase (ALT/SGPT) 55 12-78 U/L Alkaline Phosphatase 106 45-117 U/L Total Protein 5.0 6.4-8.2 gm/dl Albumin 2.1 3.4-5.0 gm/dl Globulin 2.9 2.5-4.0 gm/dl Albumin/Globulin Ratio 0.7 0.9-2 Bedside Glucose 221 211 88 70-90 mg/dl Test 06/26/17 19:37 Range/Units Bedside Glucose 128 70-90 mg/dl
[2017-06-26 21:42] VITALS: BP 160/71; PULSE 61
[2017-06-26 23:18] VITALS: BP 162/53; PULSE 61; TEMP 36.7; O2SAT 99
[2017-06-27 06:40] VITALS: BP 164/63; PULSE 62
[2017-06-27] MEDS: ISOSORBIDE DINITRATE 20 MG TAB PO SCH ×3 (06:41→17:49)
[2017-06-27 07:22] VITALS: BP_SYST 149; BP_DIAS 6; BP_DIAS 64; PULSE 64; TEMP 36.7; O2SAT 96
[2017-06-27] MEDS: AMIODARONE 200 MG TAB PO SCH (08:14)
[2017-06-27] MEDS: CALCIUM 600MG + VIT D 400 IU TAB PO SCH ×2 (08:16→20:15)
[2017-06-27] MEDS: FUROSEMIDE 40 MG TAB PO SCH (08:16)
[2017-06-27] MEDS: METOPROLOL SUCC 25MG EXT REL TAB PO SCH (08:16)
[2017-06-27] MEDS: DOXYCYCLINE HYCLATE 100 MG CAP PO SCH (08:17)
[2017-06-27] MEDS: POTASSIUM CHLORIDE 20MEQ/15ML 473ML PO SCH (08:17)
[2017-06-27] MEDS: INSULIN ASPART 100 UNITS/ML 3 ML PEN SC SCH ×4 (08:28→20:50)
[2017-06-27] MEDS: INSULIN GLARGINE SOLOSTAR 100 UNITS/ML 3 ML PEN SC SCH ×2 (08:29→20:52)
[2017-06-27 15:52] VITALS: BP 156/67; PULSE 59; TEMP 36.3; O2SAT 94
[2017-06-27 20:14] VITALS: BP 186/78; PULSE 65
[2017-06-27] MEDS: ATORVASTATIN 40 MG TAB PO SCH (20:49)
--- NOTE | 2017-06-27 22:20 | Progress Note ---
Internal Med Progress Note Date of Service: Jun 27, 2017. Provider Documentation: Subjective: Patient at bedside breathing on room air. Denies shortness of breath, chest pain , abdominal pain. Patient able to eat food without discomfort. Have discussed with patient and patient's family on completion of antibiotics. Patient is awaiting for placement to physical rehab center OBJECTIVE: Exam: General- NAD, speaking comfortably on room air Eyes- EOMI ENT- no oral or nasal exudates Neck- no JVD, nontender Lungs- lungs sounds are equal in both sides, good inspiratory effort, generally clear to auscultation bilaterally except mildly reduced for lung bases Heart- regular rate, S1, S2 Abdomen-nontender, soft, nondistended Extremities- 1+ edema of lower extremities bilaterally Neuro- AO x 3 ASSESSMENT & PLAN: Patient is an 89 yr female with PMH of HTN, CKD IV, diastolic HF, DM II, A fib ( on coumadin) who presented with rectal bleeding and abdominal pain. Has been on antibiotics for diverticulitis with expanded antibiotic coverage to include pneumonia because of concern for pulmonary effusion vs edema vs infiltrate on recent chest x ray in setting of leukocytosis. CT abdomen/pelvis on 06/23/17 negative for abscess but CT chest on 06/23/17 with moderately large right side pleural effusion. S/p thoracentesis of 1 liter of pleural fluid removed on 2016 labs suggestive of transudate Pulmonary note: 06/25/2017 'Pleural fluid analysis showed a pH of 7.41. The pleural protein was only one and the pleural LDH was 61. These would be compatible with transudate. The glucose was 148 and ____ was 7 in pleural fluid. Pleural fluid for acid fast stain was negative. Pleural fluid Gram stain showed many WBCs, but no organisms." However there were "numerous histiocytes and benign mesothelial cells. On the ThinPrep slide there are also many benign mesothelial cells and histiocytes with a single group of atypical cells with higher NC ratios." and while the hospitalist program director does not have sufficient cells for full assessment metastatic disease can not be excluded as per cytology report CT abdomen on 06/23/17: Decreased wall thickening and surrounding inflammatory stranding of the sigmoid colon suggests resolving acute diverticulitis. No definite perforation or abscess identified. Polypoid lesion of the anterior mid sigmoid colon, 1.5 x 1.2 cm Since patient's leukocytosis have come down since the thoracentesis and patient' s hemoglobin generally stable, patient likely would benefit from GI follow up for colonoscopy as outpatient for followup of diverticulitis. Antibiotics history on this hospital stay -IV Ceftriaxone and IV Flagyl from 06/17 to 06/24/17 to treat for diverticulitis. Switched to oral Cefuroxime and Flagyl on 06/25/17. Last dose completed for 2016 for 10 day course. -IV Doxycycline from 06/21/17 to 06/24/17 to treat for pneumonia. Switched to oral Doxycycline on 06/25/17. Last dose completed on 06/26/2017 Blood Tranfusions on this hospital stay for diverticulitis / anemia -S/P 4 units PRBC, 2 units FFP and Vit K on this admission Cardiac -Elevated troponin in this admission setting of CKD IV, DHF and Acute GI bleeding; likely troponins from demand ischemia -Diastolic HF: on Lasix 40 mg daily, Isosorbide 20 mg daily -History of atrial fibrillation: rate controlled. Metoprolol has been decreased on this admission from 25 to 12.5mg for relative bradycardia. Continue amiodarone for rate control. No Coumadin secondary to acute bleed. Avoid Cipro secondary to prolonged QTC. Telemetry discontinued on 06/22/17 HTN: -Hydralazine has been increased from 25 to 50mg BID on this admission, Continue with hydralazine Electrolytes -based on low serum calcium with elevated PTH, patient is hypoparathyroid, also is vitamin D deficient: on calcium and vitamin D supplements -also treated for hypokalemia secondary to diuretics, on potassium supplements DM II: -Hold oral regimen -continue sliding scale insulin and Lantus 12 units qhs -BG checks AC HS Code status: Full code DVT Px: SCDs for now Disposition: awaiting placement to physical rehab placement, continue PT as inpatient for now Vital Signs: Date Time Temp Pulse Resp B/P (MAP) Pulse Ox O2 Delivery O2 Flow Rate FiO2 06/27/17 20:14 65 186/78 (114) 06/27/17 20:05 Room Air 06/27/17 16:00 Room Air 06/27/17 15:52 36.3 59 16 156/67 (96) 94 Room Air 06/27/17 08:30 Room Air 06/27/17 07:22 36.7 64 16 149/64 (92) 96 Room Air 06/27/17 06:40 62 164/63 (96) 06/27/17 00:05 Room Air 06/26/17 23:18 36.7 61 18 162/53 (89) 99 Room Air Lab Results: Results Past 24 Hours Test 06/27/17 07:31 06/27/17 11:43 06/27/17 16:49 06/27/17 20:07 Range/Units Bedside Glucose 124 150 76 116 70-90 mg/dl
[2017-06-27 23:35] VITALS: BP 158/52; PULSE 65; TEMP 36.7; O2SAT 95
[2017-06-28 07:19] VITALS: BP_SYST 175; BP_SYST 180; BP_DIAS 55; BP_DIAS 70; PULSE 66; TEMP 36.6; O2SAT 90
[2017-06-28] MEDS: ISOSORBIDE DINITRATE 20 MG TAB PO SCH ×2 (07:46→12:12)
[2017-06-28] MEDS ORDERED: INSULIN GLARGINE SOLOSTAR 100 UNITS/ML 3 ML PEN SC SCH ×2 (08:00→20:00)
[2017-06-28] MEDS: INSULIN ASPART 100 UNITS/ML 3 ML PEN SC SCH ×2 (09:07→13:05)
[2017-06-28] MEDS: CALCIUM 600MG + VIT D 400 IU TAB PO SCH (09:10)
[2017-06-28] MEDS: FUROSEMIDE 40 MG TAB PO SCH (09:12)
[2017-06-28] MEDS: AMIODARONE 200 MG TAB PO SCH (09:12)
[2017-06-28] MEDS: METOPROLOL SUCC 25MG EXT REL TAB PO SCH (09:13)
[2017-06-28] MEDS: POTASSIUM CHLORIDE 20MEQ/15ML 473ML PO SCH (09:14)
--- NOTE | 2017-06-28 09:28 | Pharmacy Progress Note ---
Glycemic Control Progress Note Date of Service Jun 28, 2017. Scope Glycemic Pharmacist consulted for glycemic control to write orders per [facility] inpatient glycemic control protocol. Objective Accuchecks BSG (last 24hrs): Test 06/27/17 11:43 06/27/17 16:49 06/27/17 20:07 06/28/17 07:36 Bedside Glucose 150 mg/dl (70-90) 76 mg/dl (70-90) 116 mg/dl (70-90) 76 mg/dl (70-90) HbA1c: Test 06/18/17 05:04 Hemoglobin A1c 6.9 % (4.5-5.6) H Recent Pertinent Medications Outpatient Anti-diabetic Regimen: * Tresiba 3 units qHS plus Novolog 5 units with breakfast and 2 units with dinner (verified via Social DJ) Risk Factors for Insulin Resistance: * Diet: type 2 diabetic diet Outpatient Anti-Diabetic Meds see above Assessment & Plan ASSESSMENT: * ADA & AACE recommend a goal blood sugar range 140-180 mg/dl for the majority of critically ill & non-critically ill patients. However, more stringent targets may be selected in individual cases. Will utilize more stringent goal of 110-140mg/dl based on patient age & comorbidities. Additionally, tighter glycemic control is warranted to facilitate wound/infection healing. * Ms Stone is an 89 y/o F well known to the glycemic service. She is admitted with a GI bleed and has completed treatment for diverticulitis and pneumonia. The patient's outpatient regimen is vastly different from previous admissions. The regimen is confirmed with Social DJ and appears to provide adequate blood sugar control (although patient does have blood sugars near 300 mg/dL). It appears from the blood sugar logs that the patient's blood sugar rises throughout the day. * During this hospitalization, the patient has required around 35-40 units of insulin/day and up to 60 units/day. Lantus has been titrated to 10 units in the morning and 15 units in the qPM; this was increased two days ago to total of 25 units/day. Fasting this morning was 76 mg/dL (about 50 points lower than yesterday's fasting). Twenty-five units may be too aggressive for patient so plan for Lantus 5 units this morning and 10 units this evening in preparation for 50/50 split or Lantus 10 units BID. Fasting tomorrow morning will most likely be elevated secondary to this plan. * For post-prandial blood sugars, carbohydrate ratio was recently tightened to 1 unit for 5 grams of carbohydrates consumed. This appears to be too aggressive. Will loosen slightly to carbohydrate ratio to 6. PLAN FOR INPATIENT GLYCEMIC CONTROL: * Basal insulin with LANTUS 5 units this AM then 10 units twice daily * Correctional Insulin with NOVOLOG per scale ACHS * Goal Range: Low 110 mg/dL - High 140 mg/dL * Correction Factor: 20 mg/dL/unit * LOOSEN Nutritional / Prandial insulin per carb ratio of 1 unit per 6 grams CHO consumed RECOMMENDATIONS FOR DISCHARGE * Patient's HbA1C is appropriate for her age. She is managed by outpatient [facility] clinic through [facility]. It is reasonable to continue her home regimen and follow up with the clinic for further instruction. Thank you.
[2017-06-28 12:11] VITALS: BP 145/54; PULSE 58
--- NOTE | 2017-06-28 14:09 | Progress Note ---
Internal Med Progress Note Date of Service: Jun 28, 2017. Provider Documentation: Subjective: Patient understanding plans to discharge her to [facility] for physical rehab. Patient eating her meals without discomfort. She is able to use the bathroom without complaints. Denies shortness of breath, or chest pain or abdominal pain. OBJECTIVE: Exam: General- NAD, speaking comfortably on room air Eyes- EOMI ENT- no oral or nasal exudates Neck- no JVD, nontender Lungs- lungs sounds are equal in both sides, good inspiratory effort, generally clear to auscultation bilaterally except mildly reduced for lung bases Heart- regular rate, S1, S2 Abdomen-nontender, soft, nondistended, + bowel sounds Extremities- 1+ edema of lower extremities bilaterally Neuro- AO x 3 ASSESSMENT & PLAN: Patient is an 89 yr female with PMH of HTN, CKD IV, diastolic HF, DM II, A fib ( on coumadin) who presented with rectal bleeding and abdominal pain. Has been on antibiotics for diverticulitis with expanded antibiotic coverage to include pneumonia because of concern for pulmonary effusion vs edema vs infiltrate on recent chest x ray in setting of leukocytosis. CT abdomen/pelvis on 06/23/17 negative for abscess but CT chest on 06/23/17 with moderately large right side pleural effusion. S/p thoracentesis of 1 liter of pleural fluid removed on 2016 labs suggestive of transudate Pulmonary note: 06/25/2017 'Pleural fluid analysis showed a pH of 7.41. The pleural protein was only one and the pleural LDH was 61. These would be compatible with transudate. The glucose was 148 and ____ was 7 in pleural fluid. Pleural fluid for acid fast stain was negative. Pleural fluid Gram stain showed many WBCs, but no organisms." However there were "numerous histiocytes and benign mesothelial cells. On the ThinPrep slide there are also many benign mesothelial cells and histiocytes with a single group of atypical cells with higher NC ratios." and while the [employer] teacher does not have sufficient cells for full assessment metastatic disease can not be excluded as per cytology report CT abdomen on 06/23/17: Decreased wall thickening and surrounding inflammatory stranding of the sigmoid colon suggests resolving acute diverticulitis. No definite perforation or abscess identified. Polypoid lesion of the anterior mid sigmoid colon, 1.5 x 1.2 cm Since patient's leukocytosis have come down since the thoracentesis and patient' s hemoglobin generally stable, patient likely would benefit from GI follow up for colonoscopy as outpatient for followup of diverticulitis. Antibiotics history on this hospital stay -IV Ceftriaxone and IV Flagyl from 06/17 to 06/24/17 to treat for diverticulitis. Switched to oral Cefuroxime and Flagyl on 06/25/17. Last dose completed for 2016 for 10 day course. -IV Doxycycline from 06/21/17 to 06/24/17 to treat for pneumonia. Switched to oral Doxycycline on 06/25/17. Last dose completed on 06/26/2017 Blood Tranfusions on this hospital stay for diverticulitis / anemia -S/P 4 units PRBC, 2 units FFP and Vit K on this admission Cardiac -Elevated troponin in this admission setting of CKD IV, DHF and Acute GI bleeding; likely troponins from demand ischemia -Diastolic HF: on Lasix 40 mg daily, Isosorbide 20 mg daily -History of atrial fibrillation: rate controlled. Metoprolol has been decreased on this admission from 25 to 12.5mg for relative bradycardia. Continue amiodarone for rate control. No Coumadin secondary to acute bleed. Avoid Cipro secondary to prolonged QTC. -patient to be discharged and coumadin discontinued due to bleeding risks. Her heart rate has been in sinus and rate controlled. Patient can be re-evaluated as outpatient whether need for coumadin HTN: -Hydralazine has been increased from 25 to 50mg BID on this admission, Continue with hydralazine Electrolytes -based on low serum calcium with elevated PTH, patient is hypoparathyroid, also is vitamin D deficient: on calcium and vitamin D supplements -also treated for hypokalemia secondary to diuretics, on potassium supplements DM II: -Hold oral regimen -continue sliding scale insulin and Lantus 10 units qhs -BG checks AC HS Code status: Full code DVT Px: SCDs for now Disposition: awaiting placement to physical rehab placement. Upcoming appointments 06/30/2017 11:20 AM Adam Dominguez DO General Internal Medicine [facility] , to reschedule call [phone] 06/30/2017 6:15 PM [facility] 07/13/2017 5:40 PM Adam Dominguez DO General Internal Medicine [facility] Vital Signs: Date Time Temp Pulse Resp B/P (MAP) Pulse Ox O2 Delivery O2 Flow Rate FiO2 06/28/17 12:11 58 145/54 (84) 06/28/17 08:00 Room Air 06/28/17 07:19 36.6 66 18 180/55 (96) 90 175/70 (105) 06/28/17 00:05 Room Air 06/27/17 23:35 36.7 65 18 158/52 (87) 95 Room Air 06/27/17 20:14 65 186/78 (114) 06/27/17 20:05 Room Air 06/27/17 16:00 Room Air 06/27/17 15:52 36.3 59 16 156/67 (96) 94 Room Air Lab Results: Results Past 24 Hours Test 06/27/17 16:49 06/27/17 20:07 06/28/17 07:36 06/28/17 11:26 Range/Units Bedside Glucose 76 116 76 132 70-90 mg/dl
[2017-06-28] MEDS ORDERED: APR50 PO (14:32)
[2017-06-28] MEDS ORDERED: INSDGIPEN SC (14:32)
[2017-06-28] MEDS ORDERED: TPRSR25 PO (14:32)
--- NOTE | 2017-06-28 14:45 | Discharge Instructions ---
Discharge Instructions Date of Service Jun 28, 2017. Admission Reason for Admission: Anemia, Rectal Bleeding Discharge Discharge Diagnosis / Problem: diverticulitis, GI bleed, anemia, right lung pleural effusion, pneumonia Discharge Goals Goal(s): Improve function Activity Recommendations Activity Limitations: per Instructions/Follow-up section Lifting Limitations: gradually increase as tolerated Exercise/Sports Limitations: until after follow-up appointment May Resume Sexual Activity: after follow-up appointment Shower/Bathe: no limitations . Instructions / Follow-Up Instructions / Follow-Up Patient is an 89 yr female with PMH of HTN, CKD IV, diastolic HF, DM II, A fib ( on coumadin) who presented with rectal bleeding and abdominal pain. Has been on antibiotics for diverticulitis with expanded antibiotic coverage to include pneumonia because of concern for pulmonary effusion vs edema vs infiltrate on recent chest x ray in setting of leukocytosis. CT abdomen/pelvis on 06/23/17 negative for abscess but CT chest on 06/23/17 with moderately large right side pleural effusion. S/p thoracentesis of 1 liter of pleural fluid removed on 2016 labs suggestive of transudate Pulmonary note: 06/25/2017 'Pleural fluid analysis showed a pH of 7.41. The pleural protein was only one and the pleural LDH was 61. These would be compatible with transudate. The glucose was 148 and ____ was 7 in pleural fluid. Pleural fluid for acid fast stain was negative. Pleural fluid Gram stain showed many WBCs, but no organisms." However there were "numerous histiocytes and benign mesothelial cells. On the ThinPrep slide there are also many benign mesothelial cells and histiocytes with a single group of atypical cells with higher NC ratios." and while the compounder sterile products does not have sufficient cells for full assessment metastatic disease can not be excluded as per cytology report CT abdomen on 06/23/17: Decreased wall thickening and surrounding inflammatory stranding of the sigmoid colon suggests resolving acute diverticulitis. No definite perforation or abscess identified. Polypoid lesion of the anterior mid sigmoid colon, 1.5 x 1.2 cm Since patient's leukocytosis have come down since the thoracentesis and patient' s hemoglobin generally stable, patient likely would benefit from GI follow up for colonoscopy as outpatient for followup of diverticulitis. Antibiotics history on this hospital stay -IV Ceftriaxone and IV Flagyl from 06/17 to 06/24/17 to treat for diverticulitis. Switched to oral Cefuroxime and Flagyl on 06/25/17. Last dose completed for 2016 for 10 day course. -IV Doxycycline from 06/21/17 to 06/24/17 to treat for pneumonia. Switched to oral Doxycycline on 06/25/17. Last dose completed on 06/26/2017 Blood Tranfusions on this hospital stay for diverticulitis / anemia -S/P 4 units PRBC, 2 units FFP and Vit K on this admission Cardiac -Elevated troponin in this admission setting of CKD IV, DHF and Acute GI bleeding; likely troponins from demand ischemia -Diastolic HF: on Lasix 40 mg daily, Isosorbide 20 mg daily -History of atrial fibrillation: rate controlled. Metoprolol has been decreased on this admission from 25 to 12.5mg for relative bradycardia. Continue amiodarone for rate control. No Coumadin secondary to acute bleed. Avoid Cipro secondary to prolonged QTC. -patient to be discharged and coumadin discontinued due to bleeding risks. Her heart rate has been in sinus and rate controlled. Patient can be re-evaluated as outpatient whether need for coumadin HTN: -Hydralazine has been increased from 25 to 50mg BID on this admission, Continue with hydralazine Electrolytes -based on low serum calcium with elevated PTH, patient is hypoparathyroid, also is vitamin D deficient: on calcium and vitamin D supplements -also treated for hypokalemia secondary to diuretics, on potassium supplements DM II: -Hold oral regimen -continue sliding scale insulin and Lantus 10 units qhs -BG checks AC HS Code status: Full code DVT Px: SCDs for now Disposition: awaiting placement to physical rehab placement. Upcoming appointments 06/30/2017 11:20 AM Adam Dominguez DO General Internal Medicine [facility] , to reschedule call [phone] 06/30/2017 6:15 PM [facility], [facility] 07/13/2017 5:40 PM Adam Dominguez DO General Internal Medicine [facility] Current Hospital Diet Patient's current hospital diet: Diabetes Type 2 Diet Discharge Diet Recommended Diet: Regular Diet, Diabetes Type 2 Diet Procedures Procedures Performed: thoracentesis Pending Studies Studies pending at discharge: no Laboratory Results Hemoglobin A1c Test 06/18/17 05:04 Range/Units Estimated Average Glucose 151 mg/dl Hemoglobin A1c 6.9 H 4.5-5.6 % Medical Emergencies . Who to Call and When: Medical Emergencies: If at any time you feel your situation is an emergency, please call 911 immediately. . Non-Emergent Contact Non-Emergency issues call your: Primary Care Provider . . "Provider Documentation" section prepared by Raul Wilks. . VTE Core Measure Inpt VTE Proph given/why not?: SCD's, Contraindicated
--- NOTE | 2017-06-28 14:50 | Discharge Summary ---
Discharge Summary Date of Service Jun 28, 2017. Discharge Summary Admission Date: Jun 17, 2017 at 17:09 Discharge Date: Jun 28, 2017 Discharge Disposition: Rehab ([facility] rehab facility) Principal Diagnosis: diverticulitis, lower Gi bleed, anemia, pleural effusion of right lung, pneumonia, s/p thoracentesis Consultations: GI, pulmonary Admission Information HPI (per Admitting provider): This is an 89yo F with a PMH of HTN, CKD IV, diastolic HF, DM II, A fib (on coumadin) who presents with rectal bleeding that started last evening. Patient endorses 3-4 episodes of BRBPR with diarrhea last evening. Continued to have 3 episodes today, prior to calling her PCP, who advised her to get further evaluation at the ED. Describes the blood as bright red with some darker red clots. Denies any black, tarry stools.States that earlier this week she started to feel weak and fatigued and her family mentioned that she looked pale. Has been experiencing diarrhea intermittently over the past month but it increased in frequency over the past week. Episodes of diarrhea are associated with a dull , aching pain in her lower abdomen. Denies any lightheadedness, confusion, palpitations, CP, SOB, nausea, vomiting, constipation, LE swelling. Denies any history of GI bleeds in the past. Denies hemorrhoids or abnormal colonoscopies in the past. Denies recent travel or antibiotic use. The patient is on coumadin and has been taking it regularly. Her dosage was recently increased, per [id number]. Physical Exam (per Admitting): General Appearance: WD/WN (Sitting upright, comfortable. + pallor ) Head: normocephalic, atraumatic Eyes: normal inspection, PERRL, sclerae normal ENT: normal ENT inspection (hard of hearing bilaterally ) Neck: supple, no adenopathy, trachea midline Respiratory/Chest: chest non-tender, lungs clear, normal breath sounds, no respiratory distress, no accessory muscle use Cardiovascular: regular rate, rhythm, + systolic murmur Abdomen/GI: normal bowel sounds, soft, no organomegaly, + tenderness ( Slight TTP in bilateral lower quadrants and suprapubic area) Back: normal inspection, + pertinent finding (Presence of bruise on L buttock. Non-tender. ) Extremities/Musculoskelatal: no calf tenderness, normal capillary refill, + swelling (2+ bilateral pitting edema up to knees. ) Neurologic/Psych: no motor/sensory deficits, alert, normal mood/affect, oriented x 3 Skin: normal color, warm/dry, no rash Hospital Course Patient is an 89 yr female with PMH of HTN, CKD IV, diastolic HF, DM II, A fib ( on coumadin) who presented with rectal bleeding and abdominal pain. Has been on antibiotics for diverticulitis with expanded antibiotic coverage to include pneumonia because of concern for pulmonary effusion vs edema vs infiltrate on recent chest x ray in setting of leukocytosis. CT abdomen/pelvis on 06/23/17 negative for abscess but CT chest on 06/23/17 with moderately large right side pleural effusion. S/p thoracentesis of 1 liter of pleural fluid removed on 2016 labs suggestive of transudate Pulmonary note: 06/25/2017 'Pleural fluid analysis showed a pH of 7.41. The pleural protein was only one and the pleural LDH was 61. These would be compatible with transudate. The glucose was 148 and ____ was 7 in pleural fluid. Pleural fluid for acid fast stain was negative. Pleural fluid Gram stain showed many WBCs, but no organisms." However there were "numerous histiocytes and benign mesothelial cells. On the ThinPrep slide there are also many benign mesothelial cells and histiocytes with a single group of atypical cells with higher NC ratios." and while the executive assistant to president does not have sufficient cells for full assessment metastatic disease can not be excluded as per cytology report CT abdomen on 06/23/17: Decreased wall thickening and surrounding inflammatory stranding of the sigmoid colon suggests resolving acute diverticulitis. No definite perforation or abscess identified. Polypoid lesion of the anterior mid sigmoid colon, 1.5 x 1.2 cm Since patient's leukocytosis have come down since the thoracentesis and patient' s hemoglobin generally stable, patient likely would benefit from GI follow up for colonoscopy as outpatient for followup of diverticulitis. Antibiotics history on this hospital stay -IV Ceftriaxone and IV Flagyl from 06/17 to 06/24/17 to treat for diverticulitis. Switched to oral Cefuroxime and Flagyl on 06/25/17. Last dose completed for 2016 for 10 day course. -IV Doxycycline from 06/21/17 to 06/24/17 to treat for pneumonia. Switched to oral Doxycycline on 06/25/17. Last dose completed on 06/26/2017 Blood Tranfusions on this hospital stay for diverticulitis / anemia -S/P 4 units PRBC, 2 units FFP and Vit K on this admission Cardiac -Elevated troponin in this admission setting of CKD IV, DHF and Acute GI bleeding; likely troponins from demand ischemia -Diastolic HF: on Lasix 40 mg daily, Isosorbide 20 mg daily -History of atrial fibrillation: rate controlled. Metoprolol has been decreased on this admission from 25 to 12.5mg for relative bradycardia. Continue amiodarone for rate control. No Coumadin secondary to acute bleed. Avoid Cipro secondary to prolonged QTC. -patient to be discharged and coumadin discontinued due to bleeding risks. Her heart rate has been in sinus and rate controlled. Patient can be re-evaluated as outpatient whether need for coumadin HTN: -Hydralazine has been increased from 25 to 50mg BID on this admission, Continue with hydralazine Electrolytes -based on low serum calcium with elevated PTH, patient is hypoparathyroid, also is vitamin D deficient: on calcium and vitamin D supplements -also treated for hypokalemia secondary to diuretics, on potassium supplements DM II: -Hold oral regimen -continue sliding scale insulin and Lantus 10 units qhs -BG checks AC HS Code status: Full code DVT Px: SCDs for now Disposition: awaiting placement to physical rehab placement. Upcoming appointments 06/30/2017 11:20 AM Adam Dominguez DO General Internal Medicine [facility] , to reschedule call [phone] 06/30/2017 6:15 PM [facility], [facility] 07/13/2017 5:40 PM Adam Dominguez DO General Internal Medicine [facility] Total time spent on discharge = This includes examination of the patient, discharge planning, medication reconciliation, and communication with other providers. Discharge Instructions see hospital course
[2017-06-28 15:01] VITALS: BP 145/54; PULSE 58; TEMP 36.6; O2SAT 90
[2017-06-28 15:11] VITALS: BP 133/57; PULSE 66; TEMP 36.6; O2SAT 94
[2017-06-29] MEDS ORDERED: INSULIN ASPART 100 UNITS/ML 3 ML PEN SC SCH (02:00)
== END 2017-06-28 15:50 | DRG 378 ==
LOC: C.EDB 15:08 → C.2T 17:09 → ENRESERV 17:40 → C.4E 06-22 11:01
PROVIDERS: ADMIT Hospitalist; ATTEND Hospitalist
PROC: 0W9B3ZZ Drainage of Left Pleural Cavity, Percutaneous Approach (ICD-10-PCS; principal; 2017-06-24)
DX: K62.5 Hemorrhage of anus and rectum (principal); N18.4 Chronic kidney disease, stage 4 (severe); I50.30 Unspecified diastolic (congestive) heart failure; K57.32 Diverticulitis of large intestine without perforation or abscess without bleeding; I50.32 Chronic diastolic (congestive) heart failure; I24.8 Other forms of acute ischemic heart disease; D62 Acute posthemorrhagic anemia; J90 Pleural effusion, not elsewhere classified; E83.42 Hypomagnesemia; Z82.49 Family history of ischemic heart disease and other diseases of the circulatory system; I10 Essential (primary) hypertension; E11.22 Type 2 diabetes mellitus with diabetic chronic kidney disease; I48.0 Paroxysmal atrial fibrillation; I13.10 Hypertensive heart and chronic kidney disease without heart failure, with stage 1 through stage 4 chronic kidney disease, or unspecified chronic kidney disease; E78.5 Hyperlipidemia, unspecified; Z85.51 Personal history of malignant neoplasm of bladder; Z85.820 Personal history of malignant melanoma of skin; Z79.4 Long term (current) use of insulin; Z85.3 Personal history of malignant neoplasm of breast; Z79.82 Long term (current) use of aspirin; Z79.01 Long term (current) use of anticoagulants; R09.02 Hypoxemia; E87.6 Hypokalemia; E20.9 Hypoparathyroidism, unspecified; E55.9 Vitamin D deficiency, unspecified

== ENCOUNTER → 2017-08-11 | Day surgery (SDC) | payer OTHER, BC ==
[2017-08-09 10:28] VITALS: BMI 21.0
[~2017-08-11] VITALS: Ht 165.1 cm; Wt 59.5 kg
[~2017-08-11] MED LIST changes: -APR25 PO; -ASPI81TA28 PO; +ATROPINE SULFATE 0.1 MG/ML 5ML SYR IV PRN; -CMD4 PO; +ENDOSCOPIC MARKER 5 ML SYR ONE; +EpHEDrine SULFATE INJ 50 MG/ML AMP IV PRN; +FERR325T5 PO; +FRS/40 PO; +HYDR-4717 PO; -INSDGIPEN SC; +INSU1INJ33 SC; +ISM20 PO; -ISOS30TA35 PO; +LEVO50TA6 PO; +LIDOCAINE HCL 2% 2 ML VIAL (20MG/ML) ONE; -MRLP17X PO; +NVLG SC; -NVLGI/PEN SQ; +ONDANSETRON INJ 2 MG/ML 2 ML VIAL IV PRN; +POTASSIUM PO; +PROPOFOL IV EMULSION 10 MG/ML 20 ML VIAL IV ONE; -TCMD2 PO
[2017-08-11 13:10] VITALS: Ht 165.1 cm; Wt 59.5 kg
--- NOTE | 2017-08-11 13:23 | Endo History and Physical ---
History & Physical Date of Service: Aug 11, 2017. Chief Complaint: Hematochezia Referring Physician: Dr. Glover History of Present Illness 89 year old female with a recent admition for diverticulitis and hematochezia. Prior history notable for Colon polyps s/p colonoscopy in 2003. Past Medical History Diabetes, Cancer, High Cholesterol, Hypertension Past Surgical History Hx Cardiac Surgery: No Hx Internal Defibrillator: No Hx Pacemaker: No Hx Abdominal Surgery: Yes ([facility]/BSO) Hx of Implantable Prosthesis: No Hx Post-Op Nausea and Vomiting: No Hx Cancer Surgery: Yes (RT/LEFT BREAST LUMPECTOMY, BLADDER LINING SCRAPPING, SKIN EXCISION BCC) Hx Thoracic Surgery: No Hx Orthopedic: Yes (LUMBAR LAMINECTOMY, RT KNEE ARTHROSCOPY) Hx Urinary Tract Surgery: No Hysterectomy Family History Colon CA Social History Smoking Status: Never Smoker Hx Substance Use: No Hx Alcohol Use: Yes (OCCASIONALLY) Allergies Coded Allergies: Anastrozole (Verified Allergy, Severe, ANAPHYLAXIS, 08/11/17) edema face/tongue/lips Pioglitazone (Verified Allergy, Intermediate, HIVES, 08/11/17) Metformin (Verified Adverse Reaction, Intermediate, DIARRHEA, 08/11/17) Current Medications Reported Home Medications Medications Dose Route/Sig Max Daily Dose Days Date Category Dose Instructions Toprol Xl (Metoprolol Succinate) 25 Mg Tabcr 12.5 Mg PO QAM 08/09/17 Reported Levothyroxine Sodium 50 Mcg Tab 1 Tab PO QAM 90 08/09/17 Reported Novolog (Insulin Aspart) 100 Units/Ml Inj 1 Dose SC BID 08/09/17 Reported PER SLIDING SCALE. Tresiba Flextouch (Insulin Degludec) 100 Unit/Ml Inj 18 Units SC HS 08/09/17 Reported Ferrous Sulfate 325 Mg Tab 1 Tab PO QAM 08/09/17 Reported Apresoline (Hydralazine Hcl) 50 Mg Tab 50 Mg PO TID 08/09/17 Reported Isosorbide Mononitrate 20 Mg Tab 1 Tab PO TID 08/09/17 Reported [Potassium] 7.5 Mg PO QAM 08/09/17 Reported Lasix (Furosemide) 40 Mg Tab 60 Mg PO 2XWK 08/09/17 Reported Lasix (Furosemide) 40 Mg Tab 40 Mg PO 5XWK 06/17/17 Reported Lipitor (Atorvastatin) 40 Mg Tab 40 Mg PO HS 5/14/17 Reported Cordarone (Amiodarone Hcl) 200 Mg Tab 200 Mg PO QAM 12/09/16 Reported Vital Signs Weight (Kilograms): 59.55 Height (Feet): 5 Height (Inches): 5 Physical Exam General Appearance: no apparent distress Respiratory/Chest: Auscultation: breath sounds normal Cardiovascular: Heart Auscultation: II/ MADDIE Abdomen: Inspection & Palpation: soft Assessment and Plan Colonocopy for f/u of hematochezia and a prior history of colon polyps. We have discussed the risks to include bleeding, infection, perforation, pain and infection. Plan Colonoscopy
[2017-08-11 13:25] VITALS: TEMP 36.6
--- NOTE | 2017-08-11 14:43 | Anesthesiology Progress Note ---
Anesthesia Post Op Note Date & Time Aug 11, 2017 at 14:43 Vital Signs Pain Intensity: 0 Vital Signs Past 12 Hours Date Time Temp Pulse Resp B/P (MAP) Pulse Ox O2 Delivery O2 Flow Rate FiO2 08/11/17 13:25 36.6 67 20 190/78 (115) 91 Room Air Notes Mental Status: alert / awake / arousable, participated in evaluation Pt Amnestic to Procedure: Yes Nausea / Vomiting: adequately controlled Pain: adequately controlled Airway Patency, RR, SpO2: stable & adequate BP & HR: stable & adequate Hydration State: stable & adequate Anesthetic Complications: no major complications apparent
--- NOTE | 2017-08-11 15:03 | Discharge Instructions ---
Endoscopy Patient Instructions Date / Procedure(s) Performed Aug 11, 2017. Colonoscopy Allergy Information Coded Allergies: Anastrozole (Verified Allergy, Severe, ANAPHYLAXIS, 08/11/17) edema face/tongue/lips Pioglitazone (Verified Allergy, Intermediate, HIVES, 08/11/17) Metformin (Verified Adverse Reaction, Intermediate, DIARRHEA, 08/11/17) Discharge Date / Findings Aug 11, 2017. Multiple colon polyps removed. Localized inflammation at the rectosigmoid area. Diverticulosis. Medication Instructions Stopped Medication(s): all medication except heart meds Reported Home Medications Medications Dose Route/Sig Max Daily Dose Days Date Category Dose Instructions Toprol Xl (Metoprolol Succinate) 25 Mg Tabcr 12.5 Mg PO QAM 08/09/17 Reported Levothyroxine Sodium 50 Mcg Tab 1 Tab PO QAM 90 08/09/17 Reported Novolog (Insulin Aspart) 100 Units/Ml Inj 1 Dose SC BID 08/09/17 Reported PER SLIDING SCALE. Tresiba Flextouch (Insulin Degludec) 100 Unit/Ml Inj 18 Units SC HS 08/09/17 Reported Ferrous Sulfate 325 Mg Tab 1 Tab PO QAM 08/09/17 Reported Apresoline (Hydralazine Hcl) 50 Mg Tab 50 Mg PO TID 08/09/17 Reported Isosorbide Mononitrate 20 Mg Tab 1 Tab PO TID 08/09/17 Reported [Potassium] 7.5 Mg PO QAM 08/09/17 Reported Lasix (Furosemide) 40 Mg Tab 60 Mg PO 2XWK 08/09/17 Reported Lasix (Furosemide) 40 Mg Tab 40 Mg PO 5XWK 06/17/17 Reported Lipitor (Atorvastatin) 40 Mg Tab 40 Mg PO HS 02/28/17 Reported Cordarone (Amiodarone Hcl) 200 Mg Tab 200 Mg PO QAM 12/09/16 Reported Provider Instructions Activity Restrictions - No exercising or heavy lifting for 24 hours. - Do not drink alcohol the day of the procedure. - Do not drive a car or operate machinery until the day after the procedure. - Do not make any important decisions or sign important papers in 24 hours after the procedure. Following Day: - Return to full activity which may include returning to work/school. Diet Start your diet with liquids and light foods (jello, soup, juice, toast). Then eat your usual diet if not nauseated. Treatment For Common After Affects For mild abdominal pain, bloating, or excessive gas: - Rest - Eat lightly - Lie on right side Follow-Up Information Await pathology. Repeat colonoscopy based on pathology. Augmentin for 1 week. Anesthesia Information What You Should Know You have had a procedure that required some medicine to reduce anxiety and discomfort. This treatment is called moderate sedation. After receiving the treatment, you may be sleepy, but you will be able to breathe on your own. The effects of the treatment may last for several hours. Follow these instructions along with Activity/Diet recommendations noted above: * Do NOT do anything where dizziness or clumsiness would be dangerous. * Rest quietly at home today, then you can be up and about tomorrow. * Have a responsible person stay with you the rest of today. * You may have had an I.V. today. If so, you may take the dressing off later today. Recommendations Call your doctor if: * Trouble breathing * Continuous vomiting for more than 24 hours * Temperature above 101 degrees * Severe abdominal pain or bloating * Pain not relieved by pain medicine ordered * There is increased drainage or redness from any incision * A large amount of rectal bleeding greater than 2-3 tablespoons. (If you had a polyp/s removed or have hemorrhoids, a small amount of blood - from the rectum is to be expected.) * You have any unanswered questions or concerns. IN THE EVENT OF A SERIOUS EMERGENCY, GO TO THE NEAREST EMERGENCY ROOM Your discharge instructions were prepared by provider Precious Davidson. Patient Instructions Signature Page Santa Ortega Patient (or Guardian) Signature/Date: I have read and understand the instructions given to me by my caregivers. Caregiver/RN/Doctor Signature/Date: The above-named patient and/or guardian has received patient instructions on this date. + Original Patient Signature Page (only) stays with chart. Please make copy for patient.
[2017-08-11 15:11] VITALS: BP 181/72; PULSE 64; O2SAT 91
--- NOTE | 2017-08-11 20:25 | GI REPORT ---
Procedure Date: 08/11/2017 1:40 PM Procedure: Colonoscopy Indications: Rectal bleeding Medicines: Monitored Anesthesia Care Complications: No immediate complications. Estimated Blood Loss: Estimated blood loss: none. Procedure: Pre-Anesthesia Assessment: - Prior to the procedure, a History and Physical was performed, and patient medications and allergies were reviewed. The patient is competent. The risks and benefits of the procedure and the sedation options and risks were discussed with the patient. All questions were answered and informed consent was obtained. Patient identification and proposed procedure were verified by the physician, the nurse and the precast concrete ironworker in the procedure room. Mental Status Examination: alert and oriented. Airway Examination: normal oropharyngeal airway and neck mobility. Respiratory Examination: clear to auscultation. CV Examination: normal. ASA Grade Assessment: III - A patient with severe systemic disease. After reviewing the risks and benefits, the patient was deemed in satisfactory condition to undergo the procedure. The anesthesia plan was to use monitored anesthesia care (MAC). Immediately prior to administration of medications, the patient was re-assessed for adequacy to receive sedatives. The heart rate, respiratory rate, oxygen saturations, blood pressure, adequacy of pulmonary ventilation, and response to care were monitored throughout the procedure. The physical status of the patient was re-assessed after the procedure. After I obtained informed consent, the scope was passed under direct vision. Throughout the procedure, the patient's blood pressure, pulse, and oxygen saturations were monitored continuously. The scope was introduced through the anus and advanced to the cecum, identified by appendiceal orifice and ileocecal valve. The patient tolerated the procedure well. The colonoscopy was unusually difficult due to multiple diverticula in the colon. The ileocecal valve, appendiceal orifice, and rectum were photographed. Findings: The perianal and digital rectal examinations were normal. A 20 mm polyp was found in the cecum. The polyp was sessile. The polyp was removed with a saline injection-lift technique using a hot snare. Resection and retrieval were complete. Verification of patient identification for the specimen was done by the physician and nurse using the patient's name and date. To prevent bleeding after the polypectomy, one hemostatic clip was successfully placed. There was no bleeding at the end of the procedure. Area was tattooed with an injection of 2 mL of Minerva ink. A 15 mm polyp was found at the hepatic flexure. The polyp was sessile. The polyp was removed with a hot snare. Resection and retrieval were complete. Area was tattooed with an injection of 1 mL of Minerva ink. A 30 mm polyp was found in the recto-sigmoid colon. The polyp was pedunculated. Area was successfully injected with 3 mL of a 1:10,000 solution of epinephrine for tumor shrinkage (vasoconstriction). The polyp was removed with a hot snare. Resection and retrieval were complete. Localized moderate inflammation characterized by congestion (edema) and erythema was found in the recto-sigmoid colon near the large polyp. Biopsies were taken with a cold forceps for histology. Multiple small and large-mouthed diverticula were found from sigmoid to ascending colon. This was more on the left side of the colon. The retroflexed view of the distal rectum and anal verge was normal and showed no anal or rectal abnormalities. Impression: - One 20 mm polyp in the cecum, removed using injection-lift and a hot snare. Resected and retrieved. Clip was placed. Tattooed. - One 15 mm polyp at the hepatic flexure, removed with a hot snare. Resected and retrieved. Tattooed. - One 30 mm polyp at the recto-sigmoid colon, removed with a hot snare. Resected and retrieved. Injected. - Localized moderate inflammation was found in the recto-sigmoid colon possibly secondary to colitis. Biopsied. - Diverticulosis from sigmoid to ascending colon. - The distal rectum and anal verge are normal on retroflexion view. Recommendation: - Discharge patient to home (ambulatory). - Await pathology results. - Repeat colonoscopy for surveillance based on pathology results. - Cipro (ciprofloxacin) 500 mg PO BID for 1 week. - Flagyl (metronidazole) 500 mg PO QID for 1 week. Davy Avina D.O. Davy Avina DO 08/11/2017 2:53:21 PM This report has been signed electronically. ELBERT CARO MD Note Initiated On: 08/11/2017 1:40 PM I attest to the content of the Intraoperative Record and orders documented therein, exceptions below
== END | disposition home or self-care (01) ==
LOC: C.GI 12:23
PROVIDERS: ATTEND Internal Medicine Gastroenterology
DX: K62.5 Hemorrhage of anus and rectum (principal); D12.0 Benign neoplasm of cecum; D12.2 Benign neoplasm of ascending colon; D12.5 Benign neoplasm of sigmoid colon; K57.30 Diverticulosis of large intestine without perforation or abscess without bleeding; Z86.010 Personal history of colon polyps; E11.9 Type 2 diabetes mellitus without complications; E78.00 Pure hypercholesterolemia, unspecified; I48.91 Unspecified atrial fibrillation; I12.9 Hypertensive chronic kidney disease with stage 1 through stage 4 chronic kidney disease, or unspecified chronic kidney disease; E78.5 Hyperlipidemia, unspecified; I50.9 Heart failure, unspecified; M19.90 Unspecified osteoarthritis, unspecified site; N18.4 Chronic kidney disease, stage 4 (severe); E03.9 Hypothyroidism, unspecified; Z85.51 Personal history of malignant neoplasm of bladder; Z85.820 Personal history of malignant melanoma of skin; Z90.710 Acquired absence of both cervix and uterus; Z79.4 Long term (current) use of insulin; Z80.0 Family history of malignant neoplasm of digestive organs

== ENCOUNTER → 2017-08-27 | Outpatient (CLI) | payer OTHER, BC ==
[~2017-08-27] MED LIST changes: -ATROPINE SULFATE 0.1 MG/ML 5ML SYR IV PRN; -ENDOSCOPIC MARKER 5 ML SYR ONE; -EpHEDrine SULFATE INJ 50 MG/ML AMP IV PRN; -LIDOCAINE HCL 2% 2 ML VIAL (20MG/ML) ONE; -ONDANSETRON INJ 2 MG/ML 2 ML VIAL IV PRN; -PROPOFOL IV EMULSION 10 MG/ML 20 ML VIAL IV ONE
--- NOTE | 2017-08-27 12:26 | DIAGNOSTIC IMAGING REPORT ---
DOPPLER ULTRASOUND OF THE RENAL ARTERIES CLINICAL HISTORY: Hypertension. Chronic kidney disease. COMPARISON STUDY: Renal ultrasound dated 05/25/2017. TECHNIQUE: Doppler sonography of the renal arteries was performed to assess renal artery stenosis. Images are reviewed in the transverse and longitudinal planes. FINDINGS: There is asymmetric cortical atrophy of the right kidney as compared to the left. The right kidney measures 7.4 cm in length and the left kidney measures 11.8 cm in length. Scattered subcentimeter cysts are seen in both kidneys. There is no hydronephrosis. There are bilateral pleural effusions. On the right, intrarenal arterial resistive indices range from 0.94 to 1.0. Intrarenal arterial waveforms are normal with brisk upstrokes. The right renal arterial waveform is normal, and velocities within the right renal artery measure up to 31 cm/sec. The right renal vein is patent. On the left, intrarenal arterial resistive indices range from 0.73 to 1.0. Intrarenal arterial waveforms are normal with brisk upstrokes. The left renal arterial waveform is normal, and velocities within the left renal artery measure up to 108 cm/sec. The left renal vein is patent. The abdominal aorta is patent. Velocities within the abdominal aorta measure up to 100 and cm/s. IMPRESSION: 1. There is asymmetric cortical atrophy of the right kidney as compared to the left. 2. Elevated intrarenal resistive indices suggest medical renal disease. 3. There are no elevated velocities seen throughout the renal arteries to indicate renal artery stenosis. 4. Bilateral pleural effusions. Electronically signed by: Dain Mar M.D. 08/27/2017 12:25 PM Dictated Date/Time: 08/27/2017 12:20 PM
== END | disposition home or self-care (01) ==
LOC: C.ULTR 10:59
PROVIDERS: ATTEND Internal Medicine Nephrology
DX: E55.9 Vitamin D deficiency, unspecified (principal); I10 Essential (primary) hypertension; N18.3 Chronic kidney disease, stage 3 (moderate); R80.9 Proteinuria, unspecified

== ENCOUNTER 2017-09-24 10:53 | Inpatient (IN) | payer OTHER, BC ==
[~2017-09-24] VITALS: Ht 165.1 cm; Wt 63.6 kg
[2017-09-24] VITALS (9 sets, daily range): BP systolic 149–198; BP diastolic 56–77; PULSE 57–64; TEMP 36.3–36.4; O2SAT 92–95; BMI 23.5
--- NOTE | 2017-09-24 11:50 | DIAGNOSTIC IMAGING REPORT ---
CHEST ONE VIEW PORTABLE CLINICAL HISTORY: SOB dysphagia COMPARISON STUDY: 06/24/2017 FINDINGS: Bibasilar parenchymal infiltrative change. Upper lungs are considered clear. Minimal pleural thickening considered chronic of the left and to lesser extent right pulmonary apex. Moderate stable cardia megaly. IMPRESSION: Bilateral bibasilar parenchymal infiltrative change with underlying pleural effusions and/or consolidative change. The above report was generated using voice recognition software. It may contain grammatical, syntax or spelling errors. Electronically signed by: Jus Arnold M.D. 09/24/2017 11:49 AM Dictated Date/Time: 09/24/2017 11:48 AM
[2017-09-24 11:55] LABS: BASO % 0.1 %; BASO ABS # 0.01 K/uL (0-0.2); COMPLETE YES; EOS % 1.6 %; HEMATOCRIT 33.1 % (37-47); IG% 0.2 %; LYMPH % 5.8 %; LYMPH ABS # 0.51 K/uL (1.2-3.4); MEAN CELL VOLUME 96.2 fL (80-100); MEAN CORPUSCULAR HEMOGLOBIN 31.7 pg (25-34); MEAN CORPUSCULAR HGB CONC 32.9 g/dl (32-36); MEAN PLATELET VOLUME 9.6 fL (7.4-10.4); MONO % 8.1 %; NEUT % 84.2 %; PLATELET COUNT 140 K/uL (130-400); RED BLOOD COUNT 3.44 M/uL (4.2-5.4); WHITE BLOOD COUNT 8.72 K/uL (4.8-10.8)
[2017-09-24] MEDS ORDERED: CEFTRIAXONE SOD INJ 1 GM ADDVIAL IV STA (11:59)
[2017-09-24] MEDS ORDERED: AZITHROMYCIN IV 500 MG in DEXTROSE 5% 250ML 250 ML IV ONE (12:00)
[2017-09-24] MEDS ORDERED: ALBUT/IPRATROP 3MG/0.5MG NEB 3 ML VIAL INH STA (12:01)
[2017-09-24 12:05] LABS: PROTHROMBIN TIME (PATIENT) 10.7 SECONDS (9.0-12.0)
[2017-09-24 12:13] LABS: BUN/CREATININE RATIO 19.3 (10-20); CALCIUM 8.4 mg/dl (8.5-10.1); CREATININE 2.09 mg/dl (0.60-1.20); POTASSIUM 3.4 mmol/L (3.5-5.1)
[2017-09-24 12:16] LABS: ALB/GLOB RATIO 0.8 (0.9-2)
[2017-09-24] MEDS ORDERED: [UNRECOGNIZED DRUG - CODE] PO (12:29)
[2017-09-24] MEDS ORDERED: HydrALAZINE HCL 20 MG/ML VIAL IV. STA (13:40)
[2017-09-24] MEDS ORDERED: POTASSIUM CHLORIDE 10 MEQ TABCR PO STA (13:52)
[2017-09-24] MEDS ORDERED: FUROSEMIDE 40 MG/4 ML VIAL IV STA (14:14)
[2017-09-24] MEDS ORDERED: ONDANSETRON INJ 2 MG/ML 2 ML VIAL IV PRN (14:15)
[2017-09-24] MEDS ORDERED: NITROGLYCERIN 0.4 MG SL PER TAB CHARGE SL PRN (14:15)
[2017-09-24] MEDS ORDERED: GLUCOSE 40% GEL 15 GM TUBE PO PRN (14:15)
[2017-09-24] MEDS ORDERED: MAGNESIUM HYDROXIDE SUSP 30 ML UDC PO PRN (14:15)
[2017-09-24] MEDS ORDERED: ALUMINUM/MAGNESIUM/SIMETH (MAALOX MAX) 30 ML UDC PO PRN (14:15)
[2017-09-24] MEDS ORDERED: GLUCOSE 10 TABS/TUBE PO PRN (14:15)
[2017-09-24] MEDS ORDERED: GLUCAGON FOR INJ 1 MG VIAL SQ PRN (14:15)
[2017-09-24] MEDS ORDERED: POLYETHYLENE (MIRALAX) 17 GM PACK PO PRN (14:15)
[2017-09-24] MEDS ORDERED: DEXTROSE 50% 50 ML SYR IV PRN (14:15)
[2017-09-24] MEDS ORDERED: ACETAMINOPHEN 325 MG TAB PO PRN (14:15)
[2017-09-24] MEDS ORDERED: PHARMACY GLYCEMIC MGMT CONSULT PRN (14:35)
[2017-09-24] MEDS ORDERED: POTASSIUM CHLORIDE 20MEQ/15ML 473ML PO STA (14:49)
--- NOTE | 2017-09-24 15:13 | EMERGENCY ROOM VISIT NOTE ---
History Report prepared by Elijah: Leanne Alcaraz Under the Supervision of: Dr. Carlos Kolb D.O. First contact with patient: 11:43 Chief Complaint: CARDIAC ASSESSMENT Stated Complaint: CHF Nursing Triage Summary: Saw Dr. Dominguez today, had 5lb. wt gain over the past few weeks, 85% r/a, increased dyspnea, and bilateral crackles in bases. "Dr. Dominguez told me to come here for fluid on my lungs". Pt reports hx of CHF and A. fib. History of Present Illness The patient is a 89 year old female who presents to the Emergency Room with complaints of persistent shortness of breath that began today. She notes that she had a CT scan about one week ago. The patient states that she went to see Rojelio Pina at 0900 today for a follow up. The CT scan showed fluid in the patient's lung. The patient states that Dr. Dominguez recommended she come to the Emergency Department for further evaluation, noting her blood pressure was high and her oxygen level was low. She denies having a cough or fever. The patient states that she can only walk short distances, noting it increases her shortness of breath. She notes that she has chronic swelling in her legs that has worsen recently. Source of History: patient Onset: today Position: other (global) Quality: other (shortness of breath) Timing: other (persistent) Modifying Factors (Worsening): other (walking) Review of Systems See HPI for pertinent positives & negatives. A total of 10 systems reviewed and were otherwise negative. Past Medical & Surgical Medical Problems: (1) GERMAINE (acute kidney injury) (2) Breast cancer (3) CKD (chronic kidney disease), stage IV (4) Diastolic CHF (5) DM type 2 (diabetes mellitus, type 2) (6) Dyslipidemia (7) History of bladder cancer (8) History of melanoma (9) Hypertension (10) Paroxysmal atrial fibrillation (11) S/p excision of bladder tumor (12) Shortness of breath (13) TIA (transient ischemic attack) Surgical Problems: (1) H/O cystoscopy (2) H/O hernia repair (3) H/O lymph node biopsy (4) H/O partial mastectomy (5) S/P lumbar laminectomy (6) S/P right knee arthroscopy (7) S/P [place]-BSO (8) Status post Mohs surgery Family History Cardiac disorder FATHER MOTHER Social History Smoking Status: Never Smoker Smokeless Tobacco Use: No Alcohol Use: none Drug Use: none Marital Status: Housing Status: lives alone Occupation Status: retired Current/Historical Medications Scheduled Amiodarone Hcl (Cordarone), 200 MG PO QAM Atorvastatin (Lipitor), 40 MG PO HS Ferrous Sulfate (Ferrous Sulfate), 1 TAB PO QAM Furosemide (Lasix), 40 MG PO 5XWK Furosemide (Lasix), 60 MG PO 2XWK Hydralazine Hcl (Apresoline), 50 MG PO TID Insulin Aspart (Novolog), 1 DOSE SC BID Insulin Degludec (Tresiba Flextouch), 30 UNITS SC HS Isosorbide Mononitrate (Isosorbide Mononitrate), 1 TAB PO TID Levothyroxine Sodium (Levothyroxine Sodium), 1 TAB PO QAM Metoprolol Succinate (Toprol Xl), 12.5 MG PO QAM Potassium Chloride (Potassium Chloride), 7.5 ML PO DAILY Allergies Coded Allergies: Anastrozole (Verified Allergy, Severe, ANAPHYLAXIS, 08/11/17) edema face/tongue/lips Pioglitazone (Verified Allergy, Intermediate, HIVES, 08/11/17) Metformin (Verified Adverse Reaction, Intermediate, DIARRHEA, 08/11/17) Physical Exam Vital Signs Date Time Temp Pulse Resp B/P (MAP) Pulse Ox O2 Delivery O2 Flow Rate FiO2 09/24/17 14:30 64 18 185/64 95 Nasal Cannula 4.0 09/24/17 14:00 95 Nasal Cannula 4.0 09/24/17 13:51 60 16 194/68 97 Nasal Cannula 2.0 09/24/17 12:54 69 20 211/82 94 Nasal Cannula 4.0 09/24/17 11:33 68 20 189/95 94 Nasal Cannula 4.0 09/24/17 11:18 Nasal Cannula 4.0 09/24/17 11:15 70 09/24/17 11:14 72 24 218/80 77 Room Air 09/24/17 11:09 79 Room Air 09/24/17 10:57 36.8 68 20 213/71 85 Room Air Physical Exam CONSTITUTIONAL/VITAL SIGNS: Reviewed / noted above. GENERAL: Non-toxic in appearance. INTEGUMENTARY: Warm, dry, and [place]. HEAD: Normocephalic. EYES: without scleral icterus or trauma. ENT/OROPHARYNX: clear and moist. LYMPHADENOPATHY/NECK: Is supple without lymphadenopathy or meningismus. RESPIRATORY: Crackles in left base. CARDIOVASCULAR: Regular rate and rhythm. GI/ABDOMEN: Soft and nontender. No organomegaly or pulsatile mass. No rebound or guarding. Normal bowel sounds. EXTREMITIES: Warm and well perfused. BACK: No CVA tenderness. NEUROLOGICAL: Intact without focal deficits. PSYCHIATRIC: normal affect. MUSCULOSKELETAL: Normally developed with good muscle tone. Medical Decision & Procedures ER Provider Diagnostic Interpretation: Radiology results as stated below per my review and radiologist interpretation: CHEST ONE VIEW PORTABLE CLINICAL HISTORY: SOB dysphagia COMPARISON STUDY: 06/24/2017 FINDINGS: Bibasilar parenchymal infiltrative change. Upper lungs are considered clear. Minimal pleural thickening considered chronic of the left and to lesser extent right pulmonary apex. Moderate stable cardia megaly. IMPRESSION: Bilateral bibasilar parenchymal infiltrative change with underlying pleural effusions and/or consolidative change. The above report was generated using voice recognition software. It may contain grammatical, syntax or spelling errors. Electronically signed by: Jus Arnold M.D. 09/24/2017 11:49 AM Laboratory Results 09/24/17 11:41 Red Blood Count 3.44, Mean Corpuscular Volume 96.2, Mean Corpuscular Hemoglobin 31.7, Mean Corpuscular Hemoglobin Concent 32.9, Mean Platelet Volume 9.6, Neutrophils (%) (Auto) 84.2, Lymphocytes (%) (Auto) 5.8, Monocytes (%) (Auto) 8.1, Eosinophils (%) (Auto) 1.6, Basophils (%) (Auto) 0.1, Neutrophils # (Auto) 7.33, Lymphocytes # (Auto) 0.51, Monocytes # (Auto) 0.71, Eosinophils # (Auto) 0.14, Basophils # (Auto) 0.01 09/24/17 11:41 Test 09/24/17 11:41 09/24/17 11:47 White Blood Count 8.72 K/uL (4.8-10.8) Red Blood Count 3.44 M/uL (4.2-5.4) Hemoglobin 10.9 g/dL (12.0-16.0) Hematocrit 33.1 % (37-47) Mean Corpuscular Volume 96.2 fL (80-100) Mean Corpuscular Hemoglobin 31.7 pg (25-34) Mean Corpuscular Hemoglobin Concent 32.9 g/dl (32-36) Platelet Count 140 K/uL (130-400) Mean Platelet Volume 9.6 fL (7.4-10.4) Neutrophils (%) (Auto) 84.2 % Lymphocytes (%) (Auto) 5.8 % Monocytes (%) (Auto) 8.1 % Eosinophils (%) (Auto) 1.6 % Basophils (%) (Auto) 0.1 % Neutrophils # (Auto) 7.33 K/uL (1.4-6.5) Lymphocytes # (Auto) 0.51 K/uL (1.2-3.4) Monocytes # (Auto) 0.71 K/uL (0.11-0.59) Eosinophils # (Auto) 0.14 K/uL (0-0.5) Basophils # (Auto) 0.01 K/uL (0-0.2) RDW Standard Deviation 54.6 fL (36.4-46.3) RDW Coefficient of Variation 15.5 % (11.5-14.5) Immature Granulocyte % (Auto) 0.2 % Immature Granulocyte # (Auto) 0.02 K/uL (0.00-0.02) Prothrombin Time 10.7 SECONDS (9.0-12.0) Prothromb Time International Ratio 1.0 (0.9-1.1) Activated Partial Thromboplast Time 25.4 SECONDS (21.0-31.0) Partial Thromboplastin Ratio 1.0 Anion Gap 6.0 mmol/L (3-11) Est Creatinine Clear Calc Drug Dose 16.4 ml/min Estimated GFR () 23.7 Estimated GFR (Non- 20.5 BUN/Creatinine Ratio 19.3 (10-20) Calcium Level 8.4 mg/dl (8.5-10.1) Total Bilirubin 0.5 mg/dl (0.2-1) Aspartate Amino Transf (AST/SGOT) 61 U/L (15-37) Alanine Aminotransferase (ALT/SGPT) 73 U/L (12-78) Alkaline Phosphatase 128 U/L (45-117) Pro-B-Type Natriuretic Peptide 70015 pg/ml (0-1800) Total Protein 6.4 gm/dl (6.4-8.2) Albumin 2.9 gm/dl (3.4-5.0) Globulin 3.5 gm/dl (2.5-4.0) Albumin/Globulin Ratio 0.8 (0.9-2) Bedside Troponin I < 0.030 ng/ml (0-0.045) Laboratory results as stated above per my review. Medications Administered Medications (Trade) Dose Ordered Sig/[place]ha Route Start Time Stop Time Status Last Admin Dose Admin Ceftriaxone Sodium (Rocephin Inj) 1 gm NOW STAT IV 09/24/17 11:59 09/24/17 12:01 DC 09/24/17 12:30 1 GM Azithromycin 500 mg/Dextrose 255 ml @ 125 mls/hr ONE ONCE IV 09/24/17 12:00 09/24/17 14:02 DC 09/24/17 12:56 125 MLS/HR Albuterol/ Ipratropium (Duoneb) 3 ml NOW STAT INH 09/24/17 12:01 09/24/17 12:02 DC 09/24/17 12:30 3 ML Hydralazine HCl (HydrALAZINE INJ) 10 mg NOW STAT IV. 09/24/17 13:40 09/24/17 13:41 DC 09/24/17 13:52 10 MG Furosemide (Lasix Inj) 40 mg NOW STAT IV 09/24/17 14:14 09/24/17 14:36 DC 09/24/17 14:59 40 MG ECG Indication: chest pain Rate (beats per minute): 73 Rhythm: normal sinus Findings: 1st degree AV block, RBBB, no acute ischemic change, no ectopy ED Course 1148: Previous medical records were reviewed. The patient was evaluated in room C10. A complete history and physical examination was performed. 1159: Ordered Rocephin Inj 1gm IV. 1200: Ordered Azithromycin 500mg/Dextrose 255ml @ 125mls/hr IV. 1201: Ordered Duoneb 3ml INH. 1340: Discussed the patient's case with Dr. Brown [facility] [place]. The patient will be evaluated for further treatment and disposition. Medical Decision the differential was considered includes acute myocardial infarction, acute coronary syndrome, myocarditis, pericarditis, pericardial effusions /tamponade, esophageal perforation, thoracic aortic dissection, pulmonary embolism, pneumonia, pneumothorax, pancreatitis, shingles, acute cholecystitis, perforated abdominal viscus. This is a 89-year-old female who presents to the ED with a chief complaint of hypoxia and shortness of breath. The patient reports that she saw her PCP today for outpatient follow-up and was found to have hypoxia with an oxygen saturation of 85% on room air. She was sent here for evaluation. She does not normally use oxygen. She denies any chest pains, fevers or recent cough. She does report pedal edema. It is chronic but somewhat worse. The patient is noted to have hypertension with a blood pressure 189/95. It was higher during her stay. She was treated with IV hydralazine for this. The patient had a chest x-ray that suggests bilateral basilar infiltrates. Troponin was negative. The BNP was elevated although her creatinine was elevated at 2.09. This is baseline for her. EKG shows a sinus rhythm with a right bundle branch block a rate of 73. The patient was treated with a DuoNeb treatment as well as IV Rocephin and IV Zithromax. I spoke with the hospitalist who will see the patient for further inpatient evaluation and care. Medication Reconcilliation Current Medication List: was personally reviewed by me Blood Pressure Screening Patient's blood pressure: Elevated blood pressure Refer to hospitalist. Consults Time Called: [phone] Consulting Physician: Dr. Brown, [facility] Returned Call: [phone] Impression Primary Impression: Pneumonia Additional Impressions: Hypoxia Hypertension Scribe Attestation The scribe's documentation has been prepared under my direction and personally reviewed by me in its entirety. I confirm that the note above accurately reflects all work, treatment, procedures, and medical decision making performed by me. Departure Information Dispostion Being Evaluated By Hospitalist Referrals Adam Dominguez D.O. (PCP) Forms IMPORTANT VISIT INFORMATION Patient Instructions My [facility] Problem Qualifiers
[2017-09-24] MEDS ORDERED: POTA10SO10 PO (15:15)
--- NOTE | 2017-09-24 15:58 | History and Physical ---
History & Physical Date & Time of Service: Sep 24, 2017 at 14:35 Chief Complaint: CHF Primary Care Physician: Adam Dominguez D.O. History of Present Illness Source: patient Pt is 89 y/o F with PMH HTN, Hyperlipidemia, chronic diastolic HF, paroxysmal a- fib,DM II insulin dependent, hx breast CA, CKD stage IV presented to ER from PCP office for hypoxia. Pt reports feels SOB when bends over to tie her shoes, but denies SOB at rest or with exertion. Uses walker to ambulate. She reports hasn't felt any more SOB recently. Does report 5lb weight gain over past 1 week and has noticed increased edema bilateral LE and feels that her abdomen looks more distended than usual. She wears OSMIN hose during day. Reports LE edema decreased in morning and increases throughout the day. She does not use O2 at home. Reports her appetite is good. Did not take am meds today and didn't eat today. Hx incomplete bladder emptying and denies any changes with this. Denies hematuria, dysuria, urinary frequency. Reports chronic black stools from taking iron. Denies any hematochezia. Denies fever/chills, diaphoresis, N/V/D/C, MACKENZIE, dizziness, syncope, vision changes, neck pain, CP, orthopnea, PND, palpitations , cough, hemoptysis, sore throat, choking, otalgia, rhinorrhea, abdominal pain, paresthesias, weakness, rashes. Hx hospitalization 06/17/17 -06/28/17 for rectal bleeding with diverticulitis. During hospitalization had R thoracentesis with cytology of pleural fluid showing single lobe of atypical cells. 1L pleural fluid removed. Hx CT Chest on 09/15/17 - 1. Airspace opacification w/i RML, LLL, atelectasis vs infiltrate. 2. Moderate R and small L pleural effusions. 3. Subacute appearing fractures of L 9th-12th ribs at costovertebral junction. Hx colonoscopy 08/11/17 3 large polyps, was on cipro & flagyl Hx renal artery u/s 05/25/17: elevated intrarenal resistive indices suggest medical renal disease Secretary To The Vice President - Dr Farias Oncologist - Dr Conrad Today in ER pt 85% on RA, BP: 213/71, P: 68, R: 20, afebrile. Pt placed on 4L 02 with sats 94%. No leukocytosis, K: 3.4, BNP: 10,776. Cr: 2.09 (~baseline). CXR: Bilateral bibasilar parenchymal infiltrative change with underlying pleural effusions and/or consolidative change. Pt given Rocephin, Zithromax, hydralazine. Past Medical/Surgical History Medical Problems: (1) GERMAINE (acute kidney injury) Status: Resolved (2) Breast cancer Permanent Comment: Infiltrating ductal carcinoma the left breast, T1b N0M0 stage I Sabrina Septer positive, progesterone receptor positive, HER-2/george negative Status post lumpectomy and sentinel lymph node biopsy Status post radiation therapy completed 05/25/2003 Close observation and no hormonal therapy Abnormal right breast mammogram 12/31/2014 decision for 6 month follow-up Abnormal mammogram Status post ultrasound guided biopsy September 06 2015 revealing invasive ductal carcinoma grade 1 Estrogen receptor positive, progesterone receptor positive, HER-2/george negative Status post lumpectomy and sentinel lymph node biopsy 11/06/2015 [id number] M0 G1 Declined Oncotype DX and chemotherapy Status: Chronic (3) CKD (chronic kidney disease), stage IV Status: Chronic (4) Diastolic CHF Status: Chronic (5) DM type 2 (diabetes mellitus, type 2) Status: Chronic (6) Dyslipidemia Status: Chronic (7) History of bladder cancer Status: Chronic (8) History of melanoma Status: Chronic (9) Hypertension Status: Chronic (10) Paroxysmal atrial fibrillation Status: Chronic (11) Rectal bleeding Status: Resolved (12) S/p excision of bladder tumor Status: Chronic (13) TIA (transient ischemic attack) Status: Chronic Surgical Problems: (1) H/O cystoscopy Status: Chronic (2) H/O hernia repair Status: Chronic (3) H/O lymph node biopsy Status: Chronic (4) H/O partial mastectomy Status: Chronic (5) S/P lumbar laminectomy Status: Chronic (6) S/P right knee arthroscopy Status: Chronic (7) S/P BR[place]NN-BSO Status: Chronic (8) Status post Mohs surgery Status: Chronic Family History Cardiac disorder FATHER MOTHER Diabetes mellitus SISTER Social History Smoking Status: Never Smoker Smokeless Tobacco Use: No Alcohol Use: occasionally Drug Use: none Marital Status: Housing status: lives with family Occupational Status: retired Immunizations History of Influenza Vaccine: Yes Influenza Vaccine Date: Jul 27, 2016 History of Tetanus Vaccine?: Unknown History of Pneumococcal: Yes Pneumococcal Date: Jul 30, 2015 History of Hepatitis B Vaccine: No Multi-Drug Resistant Organisms History of MDRO: No Allergies Coded Allergies: Anastrozole (Verified Allergy, Severe, ANAPHYLAXIS, 08/11/17) edema face/tongue/lips Pioglitazone (Verified Allergy, Intermediate, HIVES, 08/11/17) Metformin (Verified Adverse Reaction, Intermediate, DIARRHEA, 08/11/17) Home Medications Scheduled Amiodarone Hcl (Cordarone), 200 MG PO QAM Atorvastatin (Lipitor), 40 MG PO HS Ferrous Sulfate (Ferrous Sulfate), 1 TAB PO QAM Furosemide (Lasix), 40 MG PO 5XWK Furosemide (Lasix), 60 MG PO 2XWK Hydralazine Hcl (Apresoline), 50 MG PO TID Insulin Aspart (Novolog), 1 DOSE SC BID Insulin Degludec (Tresiba Flextouch), 30 UNITS SC HS Isosorbide Mononitrate (Isosorbide Mononitrate), 1 TAB PO TID Levothyroxine Sodium (Levothyroxine Sodium), 1 TAB PO QAM Metoprolol Succinate (Toprol Xl), 12.5 MG PO QAM Potassium Chloride (Potassium Chloride), 7.5 ML PO DAILY Review of Systems Constitutional: No fever, No chills, No sweats, No weight loss, No weakness, No fatigue Eyes: No worsening of vision, No eye pain, No redness, No discharge ENT: No hearing loss, No unusual epistaxis, No nasal symptoms, No sore throat, No tinnitus, No trouble swallowing Respiratory: + shortness of breath (See HPI), No cough, No sputum, No wheezing , No hemoptysis Cardiovascular: + edema (See HPI), No chest pain, No orthopnea, No PND, No palpitations Abdomen: No pain, No nausea, No vomiting, No diarrhea, No constipation Musculoskeletal: No joint pain, No muscle pain, No calf pain Genitourinary - Female: + problem reported (see HPI) Neurologic: No paralysis, No weakness, No numbness/tingling, No vertigo Psychiatric: No depression symptoms, No anxiety Endocrine: No fatigue, No excessive thirst, No excessive urination Hematologic / Lymphatic: No abnormal bleeding/bruising, No clotting problems Integumentary: No rash, No itch Physical Exam Vital Signs Date Time Temp Pulse Resp B/P (MAP) Pulse Ox O2 Delivery O2 Flow Rate FiO2 09/24/17 14:30 64 18 185/64 95 Nasal Cannula 4.0 09/24/17 13:51 60 16 194/68 97 Nasal Cannula 2.0 09/24/17 12:54 69 20 211/82 94 Nasal Cannula 4.0 09/24/17 11:33 68 20 189/95 94 Nasal Cannula 4.0 09/24/17 11:18 Nasal Cannula 4.0 09/24/17 11:15 70 09/24/17 11:14 72 24 218/80 77 Room Air 09/24/17 11:09 79 Room Air 09/24/17 10:57 36.8 68 20 213/71 85 Room Air General Appearance: WD/WN, no apparent distress Head: normocephalic, atraumatic Eyes: normal inspection, PERRL, EOMI, sclerae normal ENT: hearing grossly normal, pharynx normal, + pertinent finding (mucous membranes moist) Neck: supple, no JVD, trachea midline Respiratory/Chest: chest non-tender, no respiratory distress, no accessory muscle use, + rales (bases bilaterally) Cardiovascular: regular rate, rhythm, + systolic murmur Abdomen/GI: normal bowel sounds, non tender, soft Extremities/Musculoskelatal: no calf tenderness, normal capillary refill, non- tender, + pedal edema (3+ bilateral lower extremities) Neurologic/Psych: alert, normal mood/affect, oriented x 3 Skin: normal color, warm/dry, + pertinent finding (few erythematous papules anterior shins bilaterally) Diagnostics Laboratory Results Results Past 24 Hours Test 09/24/17 11:41 09/24/17 11:47 Range/Units White Blood Count 8.72 4.8-10.8 K/uL Red Blood Count 3.44 4.2-5.4 M/uL Hemoglobin 10.9 12.0-16.0 g/dL Hematocrit 33.1 37-47 % Mean Corpuscular Volume 96.2 80-100 fL Mean Corpuscular Hemoglobin 31.7 25-34 pg Mean Corpuscular Hemoglobin Concent 32.9 32-36 g/dl Platelet Count 140 130-400 K/uL Mean Platelet Volume 9.6 7.4-10.4 fL Neutrophils (%) (Auto) 84.2 % Lymphocytes (%) (Auto) 5.8 % Monocytes (%) (Auto) 8.1 % Eosinophils (%) (Auto) 1.6 % Basophils (%) (Auto) 0.1 % Neutrophils # (Auto) 7.33 1.4-6.5 K/uL Lymphocytes # (Auto) 0.51 1.2-3.4 K/uL Monocytes # (Auto) 0.71 0.11-0.59 K/uL Eosinophils # (Auto) 0.14 0-0.5 K/uL Basophils # (Auto) 0.01 0-0.2 K/uL RDW Standard Deviation 54.6 36.4-46.3 fL RDW Coefficient of Variation 15.5 11.5-14.5 % Immature Granulocyte % (Auto) 0.2 % Immature Granulocyte # (Auto) 0.02 0.00-0.02 K/uL Prothrombin Time 10.7 9.0-12.0 SECONDS Prothromb Time International Ratio 1.0 0.9-1.1 Activated Partial Thromboplast Time 25.4 21.0-31.0 SECONDS Partial Thromboplastin Ratio 1.0 Sodium Level 137 136-145 mmol/L Potassium Level 3.4 3.5-5.1 mmol/L Chloride Level 100 98-107 mmol/L Carbon Dioxide Level 31 21-32 mmol/L Anion Gap 6.0 3-11 mmol/L Blood Urea Nitrogen 40 7-18 mg/dl Creatinine 2.09 0.60-1.20 mg/dl Est Creatinine Clear Calc Drug Dose 16.4 ml/min Estimated GFR () 23.7 Estimated GFR (Non- 20.5 BUN/Creatinine Ratio 19.3 10-20 Random Glucose 207 70-99 mg/dl Calcium Level 8.4 8.5-10.1 mg/dl Total Bilirubin 0.5 0.2-1 mg/dl Aspartate Amino Transf (AST/SGOT) 61 15-37 U/L Alanine Aminotransferase (ALT/SGPT) 73 12-78 U/L Alkaline Phosphatase 128 45-117 U/L Pro-B-Type Natriuretic Peptide 27256 0-1800 pg/ml Total Protein 6.4 6.4-8.2 gm/dl Albumin 2.9 3.4-5.0 gm/dl Globulin 3.5 2.5-4.0 gm/dl Albumin/Globulin Ratio 0.8 0.9-2 Bedside Troponin I < 0.030 0-0.045 ng/ml Microbiology Results 09/24/17 Blood Culture, Received Pending 09/24/17 Blood Culture, Received Pending Diagnostic Radiology CXR: IMPRESSION: Bilateral bibasilar parenchymal infiltrative change with underlying pleural effusions and/or consolidative change. EKG EKG: Sinus rhythm with 1st degree AV block, rate 73, RBBB, L anterior fascicular block Impression Assessment and Plan ACUTE ON CHRONIC DIASTOLIC CHF Pt presented with hypoxia 85% on RA, increased LE edema, 5lb weight gain, BNP:10 ,776. Negative initial troponin. Pt with hx echo 01/2017 - EF: 65-70% CXR today IMPRESSION: Bilateral bibasilar parenchymal infiltrative change with underlying pleural effusions and/or consolidative change. Hx of out pt CT chest on 09/15/17: 1. Airspace opacification w/i RML, LLL, atelectasis vs infiltrate. 2. Moderate R and small L pleural effusion. 3. Subacute appearing fractures of the L 9th-12th ribs at the costovertebral junction. 4. partially visualized biliary ductal dilation vs periportal edema -lasix 40mg IV BID -continue imdur -trend cardiac enzymes -repeat CXR in am -ECHO -cardiology consult -PT/OT consult -case management consult HTN URGENCY Pt didn't take am meds today. Hydralazine given in ER. Pt given lopressor, imdur now -hydralazine 9pm tonight -hydralazine IV prn >160 systolic -lasix 40mg IV BID -continue metoprolol ACUTE HYPOXIC RESPIRATORY FAILURE 85% on RA increased to 94% on 4L NC. CHF vs worsening pleural effusion vs CAP vs HTN urgency. No leukocytosis. No hx cough or fever/chills. Suspect CHF at this time. Pt given Rocephin, Zithromax in ER. -blood cultures pending -sputum culture -duonebs -will continue rocephin and zithromax at this time -supplemental O2 -repeat CXR tomorrow -cbc in am -pulmonology consult HYPOKALEMIA K:3.4. Pt given potassium 30 meq po -repeat prp in am HX PAROXYSMAL A-FIB Sinus, rate controlled currently -continue amiodarone CKD STAGE IV Cr: 2.09, stable baseline -avoid nephrotoxic agents when able DM II HgbA1c on 08/23/17 was 8.4. Pt on Trebisa at home -hold home insulin -NovoLog sliding scale -glycemic pharmacy consult to help transition to lantus from home long acting insulin HYPOTHYROIDISM TSH 18 on 08/23/17 and levothyroxine was adjusted, pt was to have repeat TSH in 4 weeks -continue levothyroxine DYSLIPIDEMIA -continue atorvastatin DVT PROPHYLAXIS -heparin SQ DISPOSITION -admit tele -Full Code as per discussion with pt -Follows with Dr Dominguez for routine care Pt was seen with Dr Brown. See addendum ATTENDING ADDENDUM : pt seen and examined , in agreement with above H&P by Melania Pavon PA-C labs and images reviewed 89 yo F hx of diastolic CHF, HTN , CKD Stage 4, chronic Afib off anticoagulation due to recent GI bleed , Type 2 DM presents with SOB , hypoxic in room air , increased wt gain ,increased lower ext swelling P/E GEN; elderly female , in mild distress due to SOB HEENT sclera non icteric , PERRLA/EOMI HT regular, no JVD noted, bilateral lower ext edema + 2 LUNGS + rales at base L>R EXT +2-3 bilateral lower ext edema NEURO AAO X3 , no focal deficit A/P: ACUTE CHF WITH DIASTOLIC FAILURE : presented with vol overload , increased wt gain , increased lower ext edema marked SOB , orthopnea , hypoxemia Cxray bilateral pleural effusion hx of left sided thoracenteses on 06/2017 admit to tele IV Lasix 40 BID hold PO Lasix repeat Cxray , strict I'/O's ordered for Gray resting ECHO , mild troponin elevation possibly due to CHF /cardiac strain in setting of CKD stage 4 serial CE ordered Cardiology consulted ACUTE HYPOXEMIC RESPIRATORY FAILURE possible due to acute CHF /Diastolic HF presented with spo2 80% in RA requiring 4 L 02 via nasal canula ( not on home 02 ) cont IV diuresis empiric Abx as Cxray shows possible bibasilar consolidation pulmonology eval CKD STAGE 4 Cr at baseline ~2 follow daily BMP while getting aggressive diuresis HYPERTENSIVE URGENCY: sbp > 190 possible caused by respiratory distress /hypoxia leading to worsening of CHF vice versa pt was unable to take AM meds due to illness ordered for AM dose of Lopressor, Isordil , to be given now given IV hydralazine in ER tele monitoring Cardiology consulted, will need further adjustment of BP meds TYPE 2 DM insulin SSI and Lantus while in patient AFIB on Amiodarone off anticoagulation due to recent GI bleed FULL CODE DVT PPX: moderate risk sub q heparin DISPOSITION discharge home when medically stable son , daughter in law -an RN lives with pt PT/OT prior to discharge Medicine follow up with Dr Dominguez Cardiology follow up with Dr Farias Level of Care Telemetry Resuscitation Status FULL RESUSCITATION VTE Prophylaxis VTE Risk Assessment Done? Y/N: Yes Risk Level: Moderate Given or contraindicated: Unfractionated heparin SQ Additional Copies To Adam Dominguez D.O.
[2017-09-24] MEDS: ALBUT/IPRATROP 3MG/0.5MG NEB 3 ML VIAL INH SCH ×2 (16:00→19:40)
[2017-09-24] MEDS ORDERED: METOPROLOL SUCC 25MG EXT REL TAB PO SCH (16:00)
[2017-09-24] MEDS ORDERED: INSULIN HUMAN REGULAR SC SCH (16:00)
[2017-09-24] MEDS ORDERED: ISOSORBIDE MONONITRATE 20 MG TAB PO STA (16:27)
--- NOTE | 2017-09-24 17:04 | Pulmonary Consultation ---
History General Date of Service: Sep 24, 2017. Stated Complaint: Shortness Of Breath HPI The patient is a 89 year old female who presents to [facility] with complaints of Shortness Of Breath. The patient's primary care provider is Adam Dominguez D.O.. Mrs. Hdez is a 89 year old female who presented to the ED today from PCP office today. She has had chronic shortness of breath, mostly with exertional when leaning forward or on incline. She has a stair lift in home and no longer climbs stair. She denies any shortness of breath at rest, fever, chills, chest pain, or cough. She states that she "feels fine." She has intermittent lower extremity edema and is on diuretic therapy. She uses compression stockings, but is not sure if they are helping. She follow with Dr. Farias, for cardiology for diastolic CHF and paroxysmal atrial fibrillation. She denies any increased lower extremity edema, orthopnea or paroxysmal nocturnal dyspnea. She went to see her primary care doctor, Dr. Dominguez to review CT chest, per patient CT showed fluid around around her lungs. Her pulse oximetry in the office was around 85% on RA. She was noted have bilateral crackles at bases and a 5 lb weight giain over the last few weeks since her last visit. She denies any recent travel or sick contacts. She is compliant with diet and medications. Last admission in June 2017 for diverticular bleed and exacerbation of diastolic heart failure. Anticoagulation was subsequently held. During that admssion, she had left thoracentesis with removal of about 1000cc of fluid, which was a transudative pleural effusion. Negative for bacterial growth and AFB. Upon arrival to our ER, her initial VS were 36.8, P 68, RR 20, BP 213/71, SaO2 85% on room air. While in the ER she further desaturated to 77% on RA. She was placed on 4L NC with increase in oxygen to 94%. Laboratory data significant for hemoglobin of 10.9, hematocrit 33.1, platelet count 140. Sodium 137, potassium 3.4, chloride 100, carbon dioxide 31, BUN 40, creatinine 2.09 (baseline around 2 ) and glucose 209. AST 61, ALT 73, AP 128. Troponin < 0.030, BNP 10, 776 and albumin 2.9. Chest xray showed chronic pleural thickening with bilateral bibasilar parenchymal changes and underlying pleural effusions. In the ER, she was given ceftriaxone 1 gm, azithromycin 500 mg, Duoneb 3 ml, hydralazine and lasix. 40 mg. EKG showed NSR with a ventricular rate of 73 beats per minute, with first degree AV bloc, RBBB, no acute ischemic changes. At the time of my evaluation, this evening, patient states that she is feeling fine. She is eating dinner without difficulty and appears comfortable. Historian: patient Onset: just prior to arrival Review of Systems Constitutional: reports: as stated in HPI Eyes: reports: as stated in HPI ENT: reports: as stated in HPI Cardiovascular: reports: as stated in HPI Respiratory: reports: as stated in HPI Gastrointestinal: reports: as stated in HPI Genitourinary - Female: reports: as stated in HPI Musculoskeletal: reports: as stated in HPI Integumentary: reports: as stated in HPI Neurologic: reports: as stated in HPI Psychiatric: reports: as stated in HPI Endocrine: as stated in HPI Hematologic / Lymphatic: as stated in HPI Allergic / Immunologic: as stated in HPI All Other Symptoms All Other Systems: Reviewed and Negative Past Medical History Past Medical History: CKD stage IV DM 2 Hypothyroid Hyperlipidemia History of breast CA HTN Malignant melanoma of trunk Bladder CA cardiomyopathy Diastolic heart failure Paroxysmal atrial fibrillation on amiodarone GI bleed Pleural effusion Anemia GI bleed Past Surgical History: colonoscopy cystoscopy right partial mastecomy cateract removal spinal surgery Hysterectomy hernia repair Family History Cardiac disorder FATHER MOTHER Diabetes mellitus SISTER Family history of colon CA in maternal aunt. Diabetes in maternal grandmother Heart disease in Father Social History She drinks wine occasionally. She denies any illicit drug use and is a lifetime nonsmokers. Hx Tobacco Use In Past Year?: No Smoking Status: Never Smoker Marital status: Housing status: lives with family Occupational Status: retired Immunizations History of Influenza Vaccine: Yes Influenza Vaccine Date: Jul 27, 2016 History of Tetanus Vaccine?: Unknown History of Pneumococcal: Yes Pneumococcal Date: Jul 30, 2015 History of Hepatitis B Vaccine: No History of MDRO History of MDRO: No Allergies Coded Allergies: Anastrozole (Verified Allergy, Severe, ANAPHYLAXIS, 08/11/17) edema face/tongue/lips Pioglitazone (Verified Allergy, Intermediate, HIVES, 08/11/17) Metformin (Verified Adverse Reaction, Intermediate, DIARRHEA, 08/11/17) Current Medications Reported Home Medications Medications Dose Route/Sig Max Daily Dose Days Date Category Dose Instructions Potassium Chloride 10 % Liq 7.5 Ml PO DAILY 09/24/17 Reported Toprol Xl (Metoprolol Succinate) 25 Mg Tabcr 12.5 Mg PO QAM 08/09/17 Reported Levothyroxine Sodium 50 Mcg Tab 1 Tab PO QAM 08/09/17 Reported Novolog (Insulin Aspart) 100 Units/Ml Inj 1 Dose SC BID 08/09/17 Reported PER SLIDING SCALE. Tresiba Flextouch (Insulin Degludec) 100 Unit/Ml Inj 30 Units SC HS 08/09/17 Reported Ferrous Sulfate 325 Mg Tab 1 Tab PO QAM 08/09/17 Reported Apresoline (Hydralazine Hcl) 50 Mg Tab 50 Mg PO TID 08/09/17 Reported Isosorbide Mononitrate 20 Mg Tab 1 Tab PO TID 08/09/17 Reported Lasix (Furosemide) 40 Mg Tab 60 Mg PO 2XWK 08/09/17 Reported TUES AND SAT Lasix (Furosemide) 40 Mg Tab 40 Mg PO 5XWK 06/17/17 Reported EVERY DAY EXCEPT TUES AND SAT Lipitor (Atorvastatin) 40 Mg Tab 40 Mg PO HS 02/28/17 Reported Cordarone (Amiodarone Hcl) 200 Mg Tab 200 Mg PO QAM 12/09/16 Reported Physical Physical Exam Vital Signs: Date Time Temp Pulse Resp B/P (MAP) Pulse Ox O2 Delivery O2 Flow Rate FiO2 09/24/17 14:30 64 18 185/64 95 Nasal Cannula 4.0 09/24/17 14:00 95 Nasal Cannula 4.0 09/24/17 13:51 60 16 194/68 97 Nasal Cannula 2.0 09/24/17 12:54 69 20 211/82 94 Nasal Cannula 4.0 09/24/17 11:33 68 20 189/95 94 Nasal Cannula 4.0 09/24/17 11:18 Nasal Cannula 4.0 09/24/17 11:15 70 09/24/17 11:14 72 24 218/80 77 Room Air 09/24/17 11:09 79 Room Air 09/24/17 10:57 36.8 68 20 213/71 85 Room Air General Appearance: WD/WN, NO APPARENT DISTRESS Head: NORMOCEPHALIC, ATRAUMATIC Eyes: PERRLA, NO DISCHARGE, EOMI, SCLERAE NORMAL, CONJUNCTIVAE NORMAL ENT: NORMAL MOUTH EXAM Neck: NORMAL RANGE OF MOTION, NO TENDERNESS, TRACHEA MIDLINE, NO STRIDOR, SUPPLE, NO LYMPHADENOPATHY, NO NUCHAL RIGIDITY Respiratory: other (decreased breath sound at bases bilaterally) Cardiovasular: REGULAR RATE/RHYTHM, NORMAL S1S2 Abdomen: NON TENDER, NORMAL BOWEL SOUNDS Back: NORMAL INSPECTION, NO MIDLINE TENDERNESS, NO CVA TENDERNESS Upper Extremities: NO EDEMA, NO DEFORMITY, NORMAL ROM Lower Extremities: other (no cyanosis, no clubbing.) Edema: Bilateral LE (2+) Diagnostics Labs Results Past 24 Hours Test 09/24/17 11:41 09/24/17 11:47 Range/Units White Blood Count 8.72 4.8-10.8 K/uL Red Blood Count 3.44 4.2-5.4 M/uL Hemoglobin 10.9 12.0-16.0 g/dL Hematocrit 33.1 37-47 % Mean Corpuscular Volume 96.2 80-100 fL Mean Corpuscular Hemoglobin 31.7 25-34 pg Mean Corpuscular Hemoglobin Concent 32.9 32-36 g/dl Platelet Count 140 130-400 K/uL Mean Platelet Volume 9.6 7.4-10.4 fL Neutrophils (%) (Auto) 84.2 % Lymphocytes (%) (Auto) 5.8 % Monocytes (%) (Auto) 8.1 % Eosinophils (%) (Auto) 1.6 % Basophils (%) (Auto) 0.1 % Neutrophils # (Auto) 7.33 1.4-6.5 K/uL Lymphocytes # (Auto) 0.51 1.2-3.4 K/uL Monocytes # (Auto) 0.71 0.11-0.59 K/uL Eosinophils # (Auto) 0.14 0-0.5 K/uL Basophils # (Auto) 0.01 0-0.2 K/uL RDW Standard Deviation 54.6 36.4-46.3 fL RDW Coefficient of Variation 15.5 11.5-14.5 % Immature Granulocyte % (Auto) 0.2 % Immature Granulocyte # (Auto) 0.02 0.00-0.02 K/uL Prothrombin Time 10.7 9.0-12.0 SECONDS Prothromb Time International Ratio 1.0 0.9-1.1 Activated Partial Thromboplast Time 25.4 21.0-31.0 SECONDS Partial Thromboplastin Ratio 1.0 Sodium Level 137 136-145 mmol/L Potassium Level 3.4 3.5-5.1 mmol/L Chloride Level 100 98-107 mmol/L Carbon Dioxide Level 31 21-32 mmol/L Anion Gap 6.0 3-11 mmol/L Blood Urea Nitrogen 40 7-18 mg/dl Creatinine 2.09 0.60-1.20 mg/dl Est Creatinine Clear Calc Drug Dose 16.4 ml/min Estimated GFR () 23.7 Estimated GFR (Non- 20.5 BUN/Creatinine Ratio 19.3 10-20 Random Glucose 207 70-99 mg/dl Calcium Level 8.4 8.5-10.1 mg/dl Total Bilirubin 0.5 0.2-1 mg/dl Aspartate Amino Transf (AST/SGOT) 61 15-37 U/L Alanine Aminotransferase (ALT/SGPT) 73 12-78 U/L Alkaline Phosphatase 128 45-117 U/L Pro-B-Type Natriuretic Peptide 17787 0-1800 pg/ml Total Protein 6.4 6.4-8.2 gm/dl Albumin 2.9 3.4-5.0 gm/dl Globulin 3.5 2.5-4.0 gm/dl Albumin/Globulin Ratio 0.8 0.9-2 Bedside Troponin I < 0.030 0-0.045 ng/ml Microbiology Results 09/24/17 Blood Culture, Received Pending 09/24/17 Blood Culture, Received Pending Diagnostic Radiology CHEST ONE VIEW PORTABLE 09/24/2017 CLINICAL HISTORY: SOB dysphagia COMPARISON STUDY: 06/24/2017 FINDINGS: Bibasilar parenchymal infiltrative change. Upper lungs are considered clear. Minimal pleural thickening considered chronic of the left and to lesser extent right pulmonary apex. Moderate stable cardia megaly. IMPRESSION: Bilateral bibasilar parenchymal infiltrative change with underlying pleural effusions and/or consolidative change. TTE 01/20/2017 * -- Conclusions -- * Ejection Fraction = 65-70%. * Calcified mitral apparatus causing mitral stenosis. * There is moderate mitral stenosis. * There is mild to moderate mitral regurgitation. * There is mild tricuspid regurgitation. * Right ventricular systolic pressure is elevated at 50-60mmHg. * Aortic valve sclerosis mild, without significant aortic valvular stenosis. EKG Sinus rhythm with 1st degree A-V block, Right bundle branch block Left anterior fascicular block Bifascicular block Left ventricular hypertrophy with repolarization abnormality Cannot rule out Septal infarct , age undetermined Abnormal ECG When compared with ECG of 19-JUN-2017 06:39, Right bundle branch block has replaced Non-specific intra-ventricular conduction block Minimal criteria for Septal infarct are now Present Impression Assessment and Plan Hypoxic respiratory failure Diastolic CHF exacerbation Pleural effusion. Elevated right ventricular systolic pressure Anemia Chronic kidney disease, stage IV Hypoalbuminemia Paroxysmal atrial fibrilllation--now in NSR Ms. Ortega is 89 year old female with hypoxic respiratory failure that is multifactorial in nature, but like precipitated but acute on chronic diastolic congestive heart failure exacerbation. She has decreased renal dysfunction and hypoalbumemia also contributing to fluid overload as well. She has elevated right heart systolic pressures, likely from underlying cardiac disease. However, she may also have component of type III pulmonary hypertension from chronic hypoxemia. Pleural effusions are bilateral. Thoracentesis of left pleura showed a transudative process also pointing towards underlying cardiology. Patient denies any fever, chills, or cough. She is afebrile and does not have elevated white blood cell count. I feel that a pneumonic process like pneumonia is less likely. Recommendations. Continue with supplemental oxygenation to maintain SaO2 > 92%. Can use BIPAP intermittently and at night, to decrease the work of breathing especially during CHF exacerbation. Continue with lasix for aggressive diuresis as her kidney function tolerates. Continue with nebulizers prn, but she likely has what is "cardiac" wheeze rather than bronchospasm from obstructive airway. Can send procalcitonin, blood cultures and sputum cultures. If negative or show no growth, I recommend discontinuing antibiotics. Pulmonary embolism is unlikely, however would like to obtain bilateral lower extremity dopplers. Continue with other management per primary team. I expect that cardiology will be consulted for further management of heart failure. Continue with DVT ppx. I appreciate the consult.
[2017-09-24] MEDS: INSULIN ASPART 100 UNITS/ML 3 ML PEN SC SCH ×3 (17:33→23:55)
[2017-09-24] MEDS: NITROGLYCERIN OINT 2% 1GM PACKET EXT SCH ×2 (17:43→23:50)
[2017-09-24 18:07] LABS: URINE APPEARANCE CLEAR (CLEAR); URINE BILIRUBIN NEG (NEG); URINE COLOR YELLOW; URINE EPITHELIAL CELL AUTO 20-30 /lpf (0-5); URINE NITRITE POS (NEG); URINE PH 6.5 (4.5-7.5); URINE SPECIFIC GRAVITY 1.013 (1.000-1.030); UROBILINOGEN NEG (NEG); ZZUR CULT IF INDIC CLEAN CATCH YES
--- NOTE | 2017-09-24 18:07 | CARDIOLOGY CONSULTATION ---
DATE OF CONSULTATION: 09/24/2017 REFERRING PROVIDER: Melania Craft PA-C REASON FOR CONSULTATION: CHF. CHIEF COMPLAINT ON ADMISSION: Shortness of breath and edema. HISTORY OF PRESENT ILLNESS: Ms. Ortega is an 89-year-old female who was seen by her family physician today. She was noted to have worsening edema as well as persistent right-sided pleural effusion on CT of the chest. Due hypoxia and elevated blood pressure, she was referred to the Emergency Room. The patient states that edema has been worsening over the past 7-14 days. She states that she is compliant; however, somewhat of a poor historian. She lives with her sons; however, she states that they are not always around. Admits to excessive sodium intake on a daily basis. Denies fever or chills. Denies cough or sputum production. Notes a generalized feeling of unwellness perhaps she was coming down with a cold over the past 4 days. Denies orthopnea or PND. Lower extremity edema has been progressive and is currently up to the mid thigh. Denies palpitations, lightheadedness, dizziness, syncope or near syncope. Denies any chest discomfort or heaviness. She does not exert herself to any significant extent on her home. Recently had a stair lift installed. Offers no other complaints at this time. REVIEW OF SYSTEMS: The pertinent positives noted above. A comprehensive 10-system review is otherwise negative. PAST MEDICAL HISTORY: 1. Chronic diastolic heart disease. 2. Hypertension with hypertensive heart disease. 3. Bilateral pleural effusions, status post left-sided thoracentesis in June 2017. 4. Chronic kidney disease, stage IV. 5. Paroxysmal atrial fibrillation maintained in sinus rhythm with amiodarone. 6. Diabetes. 7. Dyslipidemia. 8. Bladder cancer. PAST SURGICAL HISTORY: 1. Cystoscopy. 2. Hernia repair. 3. Lymph node biopsy. 4. Partial mastectomy. 5. Lumbar laminectomy. 6. Arthroscopic knee surgery. 7. Total abdominal hysterectomy with bilateral salpingo-oophorectomy. 8. Mohs' surgery. FAMILY HISTORY: Negative for premature CAD or sudden cardiac ; however, noncontributory given the patient's advanced age. SOCIAL HISTORY: Lifelong nonsmoker. She is and lives with her 2 sons in [place]. ALLERGIES: ANASTROZOLE, PIOGLITAZONE, AND METFORMIN. CURRENT OUTPATIENT MEDICATIONS: 1. Insulin degludec inject 30 units under the skin at bedtime 2. NovoLog insulin 9 units at breakfast, 8 units with dinner, and 6 units in the evening. 3. Isordil, isosorbide dinitrate 20 mg 3 times daily. 4. Hydralazine 50 mg 3 times daily. 5. Lipitor 40 mg daily. 6. Amiodarone 200 mg daily. 7. Synthroid 50 mcg daily. 8. Lasix 40 mg daily with an additional 20 mg 2 days per week. 9. Ferrous sulfate 325 daily. 10. Toprol-XL 12.5 mg daily. 11. Potassium chloride 7.5 mL daily. ECG ON ADMISSION: Sinus rhythm, right bundle branch block, left anterior fascicular block, and left ventricular hypertrophy. Most recent echocardiogram performed in January of this year demonstrating ejection fraction of 65%-70% with calcified mitral apparatus causing mitral stenosis. The mitral stenosis was noted to be moderate. Mild to moderate mitral regurgitation, mild tricuspid regurgitation, and elevated right ventricular systolic pressures of 50-60 mmHg noted. Chest x-ray on admission: Right-sided pleural effusion and moderate bibasilar infiltrates. LABORATORY DATA: White blood cell count 8.72, hemoglobin is 10.9, and platelet count is 140. Sodium 137, potassium 3.4, chloride 100, CO2 of 31, BUN 40, and creatinine 2.09. ProBNP 10,776. Point of care troponin was undetectable. INR on admission 1.0. PHYSICAL EXAMINATION: VITAL SIGNS: Temperature is 36.3 degrees centigrade, pulse 64 beats per minute and regular, respiratory rate is 18 breaths per minute, blood pressure 198/77 and systolic blood pressure greater than 200 noted in the Emergency Department. The SaO2 is 93% on 4 liters. GENERAL: NAD. Chronically ill, too thin. HEENT: Her mucous membranes are moist. No scleral icterus. Conjunctivae pink. NECK: Supple. Elevated JVD noted. There is no carotid bruit. HEART: Regular with a normal S1 and S2. Soft 1-2/6 holosystolic murmur heard best at the apex. LUNGS: Demonstrate crackles at the bases bilaterally. The breath sounds are noted to be diminished at the bases as well. No rhonchi or wheeze. ABDOMEN: Soft and nontender. No rebound or guarding. Normal bowel sounds. EXTREMITIES: Warm and dry. There is +2 to 3 pitting edema from the pretibial region up to the upper thigh. NEUROLOGIC: Demonstrates no focal deficit. FINAL IMPRESSION: 1. Acute decompensated diastolic heart failure. 2. Uncontrolled hypertension. 3. Chronic renal insufficiency, stage IV. 4. Chronic conduction disease with bifascicular block -- right bundle branch block and left anterior fascicular block. 5. History of paroxysmal atrial fibrillation maintained in sinus rhythm with amiodarone. 6. Bilateral pleural effusions, status post left-sided thoracentesis in June 2017 and moderate right-sided pleural effusion noted on the chest x-ray. 7. Diabetes type 2. PLAN AND RECOMMENDATIONS: Isosorbide dinitrate will be placed on hold. I am adding topical nitrates 1 inch every 6 hours[address] I will also place metoprolol on hold and begin low dose carvedilol 3.125 mg twice daily to improve blood pressure control. The patient will require diuretic therapy intravenously. Currently, Lasix 40 mg twice daily ordered. Continue to monitor urine output, daily weights, GFR, and electrolytes closely. Other cardiovascular medications will be continued as previously ordered. Cardiology will continue to follow the patient during hospitalization. Thank you for allowing me to take part in the care of your patient. COLLIN
[2017-09-24 18:21] LABS: MANUAL MICROSCOPIC REQUIRED? NO; REVIEW REQ? YES
[2017-09-24] MEDS ORDERED: INSULIN GLARGINE SOLOSTAR 100 UNITS/ML 3 ML PEN SC SCH (21:00)
[2017-09-24] MEDS ORDERED: ISOSORBIDE MONONITRATE 20 MG TAB PO SCH (21:00)
[2017-09-24] MEDS: ATORVASTATIN 40 MG TAB PO SCH (21:09)
[2017-09-24] MEDS: FUROSEMIDE INJ 40 MG in SYRINGE 0 ML IV SCH (21:09)
[2017-09-24] MEDS: CARVEDILOL 3.125 MG TAB PO SCH (21:11)
[2017-09-24] MEDS: HEPARIN SOD 5000 UNIT/0.5 ML CARP SQ SCH (21:24)
[2017-09-24 22:08] LABS: CKMB/CK RATIO 5.5 (0-3.0)
[2017-09-24] MEDS ORDERED: PHARMACY GLYCEMIC MGMT CONSULT STA (22:15)
[2017-09-24] MEDS: HydrALAZINE HCL 20 MG/ML VIAL IV. PRN (22:36)
[2017-09-25] VITALS (14 sets, daily range): BP systolic 123–174; BP diastolic 54–65; PULSE 52–64; TEMP 36.4–37.2; O2SAT 89–97
[2017-09-25] MEDS: INSULIN ASPART 100 UNITS/ML 3 ML PEN SC SCH ×5 (03:58→21:03)
[2017-09-25 04:24] LABS: HEMATOCRIT 30.5 % (37-47); MEAN CELL VOLUME 96.8 fL (80-100); MEAN CORPUSCULAR HEMOGLOBIN 31.4 pg (25-34); MEAN CORPUSCULAR HGB CONC 32.5 g/dl (32-36); MEAN PLATELET VOLUME 9.7 fL (7.4-10.4); PLATELET COUNT 137 K/uL (130-400); RED BLOOD COUNT 3.15 M/uL (4.2-5.4); WHITE BLOOD COUNT 8.83 K/uL (4.8-10.8)
[2017-09-25 04:54] LABS: BUN/CREATININE RATIO 18.8 (10-20); CREATININE 2.15 mg/dl (0.60-1.20); MAGNESIUM 1.9 mg/dl (1.8-2.4); POTASSIUM 3.7 mmol/L (3.5-5.1)
[2017-09-25 05:05] LABS: CKMB/CK RATIO 5.5 (0-3.0); THYROID STIMULATING HORMONE 18.2 uIu/ml (0.300-4.500)
[2017-09-25] MEDS: NITROGLYCERIN OINT 2% 1GM PACKET EXT SCH ×4 (05:27→23:48)
[2017-09-25] MEDS: HEPARIN SOD 5000 UNIT/0.5 ML CARP SQ SCH ×3 (05:29→21:05)
[2017-09-25] MEDS ORDERED: LEVOTHYROXINE 50 MCG TAB PO SCH (06:30)
--- NOTE | 2017-09-25 07:01 | DIAGNOSTIC IMAGING REPORT ---
CHEST ONE VIEW PORTABLE CLINICAL HISTORY: Congestive heart failure. COMPARISON STUDY: Chest radiograph September 24, 2017. FINDINGS: There is no pneumothorax. Moderate to large bilateral pleural effusions persist. Cardiomegaly is unchanged. There is pulmonary vascular congestion. IMPRESSION: 1. Persistent moderate to large bilateral pleural effusions with associated bibasilar opacities which could reflect atelectasis or consolidation. 2. Pulmonary vascular congestion. Electronically signed by: Mark Olmos M.D. 09/25/2017 7:00 AM Dictated Date/Time: 09/25/2017 6:58 AM
[2017-09-25 07:07] LABS: ESTIMATED AVERAGE GLUCOSE 209 mg/dl; HA1C FLAG Normal (Normal)
[2017-09-25] MEDS: ALBUT/IPRATROP 3MG/0.5MG NEB 3 ML VIAL INH SCH ×4 (07:15→18:53)
[2017-09-25] MEDS: CARVEDILOL 3.125 MG TAB PO SCH ×2 (08:09→21:07)
[2017-09-25] MEDS: POTASSIUM CHLORIDE 20MEQ/15ML 473ML PO SCH (08:10)
[2017-09-25] MEDS: FERROUS SULFATE 325 MG TAB PO SCH (08:10)
[2017-09-25] MEDS: AZITHROMYCIN 250 MG TAB PO SCH (08:11)
[2017-09-25] MEDS ORDERED: POTASSIUM CHLORIDE 10 MEQ TABCR PO SCH (09:00)
[2017-09-25] MEDS ORDERED: METOPROLOL SUCC 25MG EXT REL TAB PO SCH (09:00)
[2017-09-25] MEDS ORDERED: AMIODARONE 200 MG TAB PO SCH (09:00)
[2017-09-25] MEDS: FUROSEMIDE INJ 40 MG in SYRINGE 0 ML IV SCH ×2 (09:06→17:19)
--- NOTE | 2017-09-25 09:25 | ECHOCARDIOGRAM REPORT ---
*NOTICE TO RECEIVING CONSTITUTION PARTY AGENCY This information is strictly Confidential and protected under [place] law. [place] law prohibits you from making any further disclosure of this information unless further disclosure is expressly permitted by the written consent of the person to whom it pertains or is authorized by law. A general authorization for the release of medical or other information is not sufficient for this purpose. Hospital accepts no responsibility if the information is made available to any other person, INCLUDING THE PATIENT. Interpretation Summary * Name: NIKKO CARR Study Date: 09/25/2017 06:41 AM BP: 123/54 mmHg * Patient Location: [facility] HR: 57 * : 1925 (M/d/yyyy) Gender: Female Height: 65 in * Age: 89 yrs Ethnicity: CA Weight: 141 lb * Ordering Physician: Analia Brown * Performed By: Sunita Garcia RDCS * * Reason For Study: CHF * BSA: 1.7 m2 * -- Conclusions -- * The left ventricle is normal in size. * There is severe concentric left ventricular hypertrophy. * The left ventricular wall motion is normal. * Ejection Fraction = 65-70%. * The left atrium is moderately dilated. * Aortic valve sclerosis moderate, without significant aortic valvular stenosis. * Calcified mitral apparatus causing mitral stenosis. * There is mild mitral stenosis. * There is mild to moderate mitral regurgitation. * There is moderate tricuspid regurgitation. Procedure Details * A complete two-dimensional transthoracic echocardiogram was performed (2D, M-mode, Doppler and color flow Doppler). Left Ventricle * The left ventricle is normal in size. * There is severe concentric left ventricular hypertrophy. * Ejection Fraction = 65-70%. * Left ventricular systolic function is normal. * The left ventricular wall motion is normal. Right Ventricle * The right ventricle is normal in size and function. Atria * The left atrium is moderately dilated. * Right atrial size is normal. * No ASD detected; PFO is not assessed. Mitral Valve * Calcified mitral apparatus causing mitral stenosis. * There is mild mitral stenosis. * There is mild to moderate mitral regurgitation. Tricuspid Valve * The tricuspid valve is normal. * There is no tricuspid stenosis. * There is moderate tricuspid regurgitation. Aortic Valve * The aortic valve is trileaflet. * Aortic valve sclerosis moderate, without significant aortic valvular stenosis. * No aortic regurgitation is present. Pulmonic Valve * The pulmonic valve is not well visualized. Great Vessels * The aortic root is normal size. Pericardium/Pleural * There is a trivial posterior pericardial effusion Great Vessels * Normal inferior vena cava diameter and respiratory variation suggests normal central venous pressure. MMode 2D Measurements and Calculations IVSd 1.9 cm IVSs 2.3 cm LVIDd 3.8 cm LVIDs 2.4 cm LVPWd 2.0 cm LVPWs 1.7 cm IVS/LVPW 0.98 FS 36.6 % EDV(Teich) 62.7 ml ESV(Teich) 20.6 ml EF(Teich) 67.1 % EDV(cubed) 55.7 ml ESV(cubed) 14.2 ml EF(cubed) 74.5 % % IVS thick 20.0 % % LVPW thick -11.32 % LV mass(C)d 335.3 grams LV mass(C)dI 196.6 grams/m\S\2 LV mass(C)s 214.5 grams LV mass(C)sI 125.8 grams/m\S\2 SV(Teich) 42.1 ml SI(Teich) 24.7 ml/m\S\2 SV(cubed) 41.5 ml SI(cubed) 24.3 ml/m\S\2 Ao root diam 2.7 cm Ao root area 5.7 cm\S\2 LA dimension 4.4 cm LA/Ao 1.6 LVAd ap4 20.3 cm\S\2 LVLd ap4 7.5 cm EDV(MOD-sp4) 46.5 ml EDV(sp4-el) 47.0 ml LVAs ap4 11.5 cm\S\2 LVLs ap4 6.7 cm ESV(MOD-sp4) 17.7 ml ESV(sp4-el) 16.7 ml EF(MOD-sp4) 62.0 % EF(sp4-el) 64.4 % LVAd ap2 22.8 cm\S\2 LVLd ap2 7.2 cm EDV(MOD-sp2) 61.8 ml EDV(sp2-el) 61.3 ml LVAs ap2 12.4 cm\S\2 LVLs ap2 6.8 cm ESV(MOD-sp2) 20.3 ml ESV(sp2-el) 19.4 ml EF(MOD-sp2) 67.2 % EF(sp2-el) 68.4 % LVLd %diff -3.38 % EDV(MOD-bp) 54.6 ml LVLs %diff 0.36 % ESV(MOD-bp) 18.8 ml EF(MOD-bp) 65.6 % SV(MOD-sp4) 28.9 ml SI(MOD-sp4) 16.9 ml/m\S\2 SV(MOD-sp2) 41.5 ml SI(MOD-sp2) 24.4 ml/m\S\2 SV(MOD-bp) 35.8 ml SI(MOD-bp) 21.0 ml/m\S\2 SV(sp4-el) 30.3 ml SI(sp4-el) 17.8 ml/m\S\2 SV(sp2-el) 42.0 ml SI(sp2-el) 24.6 ml/m\S\2 Doppler Measurements and Calculations MV E max yohana 185.0 cm/sec MV A max yohana 162.8 cm/sec MV E/A 1.1 MV V2 max 202.8 cm/sec MV max PG 16.4 mmHg MV V2 mean 131.0 cm/sec MV mean PG 7.4 mmHg MV V2 VTI 75.2 cm MV P1/2t max yohana 205.3 cm/sec MV P1/2t 135.4 msec MVA(P1/2t) 1.6 cm\S\2 MV dec slope 444.2 cm/sec\S\2 MV dec time 0.45 sec Ao V2 max 132.9 cm/sec Ao max PG 7.1 mmHg Ao max PG (full) 2.4 mmHg LV V1 max PG 4.7 mmHg LV V1 max 108.1 cm/sec TR max yohana 268.1 cm/sec
[2017-09-25] MEDS ORDERED: LEVOTHYROXINE 25 MCG TAB PO ONE (12:00)
--- NOTE | 2017-09-25 12:30 | CARDIOLOGY PROGRESS NOTE ---
DATE: 09/25/2017 DATE: 09/25/2017 The patient seen and examined. Chart, medications, telemetry reviewed. SUBJECTIVE: The patient feels slightly less breathless this morning though still short of breath when up in her room. Notes no chest pains. Notes no tachypalpitations. Notes no productive cough. Notes no bleeding difficulties. OBJECTIVE: VITAL SIGNS: Heart rate is 56, blood pressure is 167/60 this morning. NECK: Thin. There is no distinct jugular venous distention. LUNGS: Reveal diminished breath sounds bibasilar with scattered crackles diffusely. CARDIOVASCULAR EXAMINATION: Regular. There is no S3 gallop. Telemetry reveals no tachyarrhythmias. ABDOMEN: Soft. EXTREMITIES: Reveal 2+ lower extremity edema. LABORATORY DATA: Today, white cell count 8.8, hemoglobin is 9.9. Sodium is 137, potassium is 3.7, chloride is 102, bicarbonate 31, BUN is 40, creatinine is 2.15. TSH is 18.2. Echocardiogram done this morning demonstrates severe left ventricular hypertrophy as increased from prior examinations. Normal to hyperdynamic LV function, EF 65-70%, mild mitral stenosis, mild to moderate mitral and tricuspid insufficiency. Only notable change is increase in left ventricular wall thickness. IMPRESSIONS: 1. Complex 89-year-old female with history of longstanding hypertension, past paroxysmal atrial fibrillation, controlled in sinus rhythm with amiodarone therapy. 2. History of hypothyroidism. 3. Persistent pleural effusions. 4. Decompensated diastolic heart failure, multifactorial. 5. Chronic renal insufficiency. RECOMMENDATIONS: Will continue IV diuretics as planned. Will reduce amiodarone dosing slightly to 100 mg per day. Thyroid replacement will be increased to 75 mcg per day of levothyroxine. Given increased left ventricle wall thickness, serum protein electrophoresis ordered with concerns regarding possible senile amyloidosis.
[2017-09-25] MEDS: CEFTRIAXONE SOD INJ 1 GM in DEXTROSE 5% ADD-VANTAGE 50ML 50 ML IV SCH (12:33)
--- NOTE | 2017-09-25 13:22 | Pharmacy Progress Note ---
Glycemic Control Intl Consult Date of Service Sep 25, 2017. Scope Glycemic Pharmacist consulted by Dr Brown on 09/24/17 for glycemic control and to write orders per [facility] inpatient glycemic control protocol Objective Weight (Kilograms): 63.900 Accuchecks BSG (last 24hrs): Test 09/24/17 16:30 09/24/17 20:49 09/24/17 23:53 09/25/17 03:42 Bedside Glucose 350 mg/dl (70-90) 218 mg/dl (70-90) 134 mg/dl (70-90) 63 mg/dl (70-90) Test 09/25/17 04:00 09/25/17 04:14 09/25/17 04:31 09/25/17 05:19 Bedside Glucose 76 mg/dl (70-90) 71 mg/dl (70-90) 107 mg/dl (70-90) Random Glucose 75 mg/dl (70-99) Test 09/25/17 07:44 09/25/17 07:59 09/25/17 12:07 Bedside Glucose 48 mg/dl (70-90) 66 mg/dl (70-90) 103 mg/dl (70-90) Laboratory Data (last 24hrs) Test 09/25/17 04:14 Anion Gap 4.0 mmol/L BUN/Creatinine Ratio 18.8 Blood Urea Nitrogen 40 mg/dl Creatinine 2.15 mg/dl Hemoglobin A1c 8.9 % Potassium Level 3.7 mmol/L Sodium Level 137 mmol/L White Blood Count 8.83 K/uL HbA1c Test 09/25/17 04:14 Hemoglobin A1c 8.9 % (4.5-5.6) H Recent Pertinent Medications Outpatient Anti-diabetic Regimen: * Tresiba 30 units SQ HS + Novolog BIDM * A1c = 8.9% 09/25/17 (increased from 6.9% on 06/18/17) Assessment & Plan ASSESSMENT: * 89 yo F admitted for CHF, hypertensive urgency, and acute hypoxic respiratory failure. h/o CKD - Scr at baseline * Pt well-known to glycemic service from past admissions. Her daily requirements tend to fluctuate over the course of her admissions without significant change in stress factors. She has required anywhere from 30-60 units per day. * She currently takes Tresiba 30 units HS at home. This was decreased 20% on admission (which also correlates to wt/stress 2). Pt experienced am hypoglycemia (48 mg/dL) despite dose decrease. * Will change Lantus order to be dosed per scale based on BSG and loosen bolus parameters. PLAN FOR INPATIENT GLYCEMIC CONTROL: * Decrease Lantus to 6-16 units SQ HS * 6 units for BSG < 120 mg/dL * 12 units for BSG 120 - 180 mg/dL * 16 units for BSG > 180 mg/dL * Bolus Insulin - loosen parameters * NOVOLOG per scale ACHS * Goal Range: Low 110 mg/dL - High 140 mg/dL * Correction Factor: 30 mg/dL/unit * Nutritional / Prandial insulin per carb ratio of 1 unit per 10 grams CHO consumed * Please note that the plan above was derived based on current level of insulin resistance and hospital stress. These recommendations are appropriate for inpatient admission only. Plan of care upon discharge will need to be reassessed to avoid potential outpatient hypo/hyperglycemia. Thank you.
--- NOTE | 2017-09-25 18:16 | Progress Note ---
Medicine Progress Note Date & Time of Visit: Sep 25, 2017 at 17:51. Subjective Pt was seen and examined Lying in bed with no distress Pt said that she feels tired because she did not sleep well last night She said that her breathing feels much better She denies any chest pain, palpitation, dizziness and fever Objective Last 8 Hrs Date Time Temp Pulse Resp B/P (MAP) Pulse Ox O2 Delivery O2 Flow Rate FiO2 09/25/17 17:18 59 159/54 (89) 09/25/17 16:00 Nasal Cannula 4.0 09/25/17 15:46 36.4 54 16 160/63 (95) 97 Nasal Cannula 4.0 09/25/17 15:16 55 16 92 Nasal Cannula 4.0 09/25/17 14:22 53 153/64 (93) 09/25/17 12:18 36.9 55 18 151/56 (87) 92 Room Air 09/25/17 12:00 Nasal Cannula 4.0 09/25/17 11:13 56 16 92 Nasal Cannula 4.0 Physical Exam: General- no acute distress Head- atraumatic Eyes- PERRL, EOMI ENT- oropharynx clear Neck- supple, no JVD Lungs- No wheezing, decrease BS Heart- regular rhythm Abdomen- normal bowel sounds, soft Extremities- +edema, no calf tenderness Neuro- alert, oriented, PERRL, EOMI Skin- warm & dry Laboratory Results: Last 24 Hours Test 09/24/17 20:49 09/24/17 21:02 09/24/17 23:53 09/25/17 03:42 Bedside Glucose 218 mg/dl 134 mg/dl 63 mg/dl Total Creatine Kinase 60 U/L Creatine Kinase MB 3.3 ng/ml Creatine Kinase MB Ratio 5.5 Troponin I 0.046 ng/ml Test 09/25/17 04:00 09/25/17 04:14 09/25/17 04:31 09/25/17 05:19 Bedside Glucose 76 mg/dl 71 mg/dl 107 mg/dl White Blood Count 8.83 K/uL Red Blood Count 3.15 M/uL Hemoglobin 9.9 g/dL Hematocrit 30.5 % Mean Corpuscular Volume 96.8 fL Mean Corpuscular Hemoglobin 31.4 pg Mean Corpuscular Hemoglobin Concent 32.5 g/dl RDW Standard Deviation 55.2 fL RDW Coefficient of Variation 15.6 % Platelet Count 137 K/uL Mean Platelet Volume 9.7 fL Sodium Level 137 mmol/L Potassium Level 3.7 mmol/L Chloride Level 102 mmol/L Carbon Dioxide Level 31 mmol/L Anion Gap 4.0 mmol/L Blood Urea Nitrogen 40 mg/dl Creatinine 2.15 mg/dl Est Creatinine Clear Calc Drug Dose 16.0 ml/min Estimated GFR () 22.9 Estimated GFR (Non- 19.8 BUN/Creatinine Ratio 18.8 Random Glucose 75 mg/dl Estimated Average Glucose 209 mg/dl Hemoglobin A1c 8.9 % Calcium Level 8.0 mg/dl Magnesium Level 1.9 mg/dl Total Creatine Kinase 49 U/L Creatine Kinase MB 2.7 ng/ml Creatine Kinase MB Ratio 5.5 Troponin I 0.041 ng/ml Thyroid Stimulating Hormone (TSH) 18.200 uIu/ml Test 09/25/17 07:44 09/25/17 07:59 09/25/17 12:07 09/25/17 12:17 Bedside Glucose 48 mg/dl 66 mg/dl 103 mg/dl Test 09/25/17 16:36 Bedside Glucose 164 mg/dl Assessment & Plan ACUTE ON CHRONIC DIASTOLIC CHF Present with SOB and elevated BNP on admission CXR on admission showed bilateral bibasilar parenchymal infiltrative change with underlying pleural effusions and/or consolidative change. Repeat CXR today showed persistent moderate to large bilateral pleural effusions with associated bibasilar opacities On IV lasix 40mg BID Cardiology on board recommended to continue diuresis Mild elevated troponin that trends down Continue monitor in telemetry ECHO done today showed * The left ventricle is normal in size. * There is severe concentric left ventricular hypertrophy. * The left ventricular wall motion is normal. * Ejection Fraction = 65-70%. * The left atrium is moderately dilated. * Aortic valve sclerosis moderate, without significant aortic valvular stenosis. * Calcified mitral apparatus causing mitral stenosis. * There is mild mitral stenosis. * There is mild to moderate mitral regurgitation. * There is moderate tricuspid regurgitation. HTN URGENCY BP no at goal Continue metoprolol Hydralazine IV prn >165 systolic continue monitor BP ACUTE HYPOXIC RESPIRATORY FAILURE CXR showed Persistent moderate to large bilateral pleural effusions with associated bibasilar opacities Continue Rocephin, Zithromax in ER. Blood cultures pending Pulmonology on board Continue BIPAP intermittently and at night On Rocephin and Zithromax Will check Procalcitonin in am and if normal will d/c abx Continue monitor HYPOKALEMIA Stable Continue monitor BMP HX PAROXYSMAL A-FIB Rate controlled on NSR Continue amiodarone and metoprolol CKD STAGE IV Cr: 2.09, stable baseline Creatine today 2.1 Avoid nephrotoxic agents Continue monitor BMP DM II HgbA1c 8.9 on 09/25/17 Trebisa on hold NovoLog sliding scale Continue monitor BS HYPOTHYROIDISM TSH 18 Levothyroxine increased to 75mcg Repeat TSH in 4-6 weeks DYSLIPIDEMIA On atorvastatin DVT PROPHYLAXIS On heparin SQ DISPOSITION Continue monitor in telemetry Consultants: Cardio Pulmonology Current Inpatient Medications: Current Inpatient Medications Medications (Trade) Dose Ordered Sig/Mustapha Route Start Time Stop Time Status Last Admin Dose Admin Atorvastatin Calcium (Lipitor Tab) 40 mg HS PO 09/24/17 21:00 10/24/17 20:59 09/24/17 21:09 40 MG Ferrous Sulfate (Feosol Tab) 325 mg QAM PO 09/25/17 09:00 10/25/17 08:59 09/25/17 08:10 325 MG Hydralazine HCl (Apresoline Tab) 50 mg TID PO 09/24/17 21:00 10/24/17 20:59 09/25/17 14:25 50 MG Heparin Sodium (Porcine) (Heparin Sq 5000 Unit/0.5ml) 5,000 unit Q8 SQ 09/24/17 22:00 10/24/17 21:59 09/25/17 14:26 5,000 UNIT Acetaminophen (Tylenol Tab) 650 mg Q4H PRN PO 09/24/17 14:15 10/24/17 14:14 Al Hydrox/Mg Hydrox/Simethicone (Maalox Max Susp) 15 ml Q4H PRN PO 09/24/17 14:15 10/24/17 14:14 Magnesium Hydroxide (Milk Of Magnesia Susp) 30 ml Q12H PRN PO 09/24/17 14:15 10/24/17 14:14 Ondansetron HCl (Zofran Inj) 4 mg Q6H PRN IV 09/24/17 14:15 10/24/17 14:14 Nitroglycerin (Nitrostat Tab) 0.4 mg UD PRN SL 09/24/17 14:15 10/24/17 14:14 Polyethylene (Miralax Powder Packet) 17 gm DAILY PRN PO 09/24/17 14:15 10/24/17 14:14 Glucose (Glucose 40% Gel) 15-30 GRAMS 15 GRAMS... UD PRN PO 09/24/17 14:15 10/24/17 14:14 Glucose (Glucose Chew Tab) 4-8 Tablets 4 Tabl... UD PRN PO 09/24/17 14:15 10/24/17 14:14 Dextrose (Dextrose 50% 50ML Syringe) 25-50ML OF 50% DW IV FOR... UD PRN IV 09/24/17 14:15 10/24/17 14:14 Glucagon (Glucagon Inj) 1 mg UD PRN SQ 09/24/17 14:15 10/24/17 14:14 Miscellaneous Information (Consult Glycemic Management Pharmacy) 1 ea UD PRN N/A 09/24/17 14:35 10/24/17 14:34 Furosemide 40 mg/ Syringe 4 ml @ 4 mls/min Q12@0900,1700 IV 09/24/17 20:00 10/24/17 19:59 09/25/17 09:06 4 MLS/MIN Albuterol/ Ipratropium (Duoneb) 3 ml QIDR INH 09/24/17 16:00 10/24/17 15:59 09/25/17 15:16 3 ML Ceftriaxone Sodium 1 gm/ Dextrose 50 ml @ 100 mls/hr Q24H IV 09/25/17 12:00 10/02/17 11:59 09/25/17 12:33 100 MLS/HR Azithromycin (Zithromax Tab) 500 mg QAM PO 09/25/17 09:00 10/02/17 08:59 09/25/17 08:11 500 MG Hydralazine HCl (HydrALAZINE INJ) 10 mg Q8 PRN IV. 09/24/17 14:30 10/24/17 14:29 09/24/17 22:36 10 MG Isosorbide Mononitrate (Ismo Tab) 20 mg TID@0700,1400,2100 PO 09/24/17 21:00 10/24/17 20:59 Future Hold Potassium Chloride (Melissa Ciel Elix) 10 meq QAM PO 09/25/17 09:00 10/25/17 08:59 09/25/17 08:10 10 MEQ Insulin Aspart (novoLOG ASPART) SLIDING SCALE ACHS SC 09/24/17 16:30 10/24/17 16:29 09/24/17 21:23 4 UNITS Carvedilol (Coreg Tab) 3.125 mg BID PO 09/24/17 21:00 10/24/17 20:59 09/25/17 08:09 3.125 MG Nitroglycerin (Nitroglycerin 2% Oint) 1 inch Q6H EXT 09/24/17 16:30 10/24/17 16:29 09/25/17 12:34 1 INCH Levothyroxine Sodium (Synthroid Tab) 75 mcg DAILYBB PO 09/26/17 06:30 10/25/17 06:59 Amiodarone HCl (Cordarone Tab) 100 mg QAM PO 09/26/17 09:00 10/25/17 08:59 Insulin Glargine (Lantus Solostar Pen) SEE PROTOCOL TEXT HS SC 09/25/17 21:00 10/25/17 20:59
[2017-09-25] MEDS: INSULIN GLARGINE SOLOSTAR 100 UNITS/ML 3 ML PEN SC SCH (21:04)
[2017-09-25] MEDS: ATORVASTATIN 40 MG TAB PO SCH (21:07)
[2017-09-26] VITALS (16 sets, daily range): BP systolic 137–188; BP diastolic 54–84; PULSE 50–61; TEMP 36.4–36.6; O2SAT 90–95
[2017-09-26] MEDS: HydrALAZINE HCL 20 MG/ML VIAL IV. PRN (00:33)
[2017-09-26] MEDS: HEPARIN SOD 5000 UNIT/0.5 ML CARP SQ SCH ×3 (06:00→20:58)
[2017-09-26] MEDS: LEVOTHYROXINE 75 MCG TAB PO SCH (06:02)
[2017-09-26] MEDS: NITROGLYCERIN OINT 2% 1GM PACKET EXT SCH ×4 (06:02→23:19)
[2017-09-26 06:32] LABS: HEMATOCRIT 31.7 % (37-47); MEAN CELL VOLUME 97.5 fL (80-100); MEAN CORPUSCULAR HEMOGLOBIN 31.7 pg (25-34); MEAN CORPUSCULAR HGB CONC 32.5 g/dl (32-36); MEAN PLATELET VOLUME 10.4 fL (7.4-10.4); PLATELET COUNT 132 K/uL (130-400); RED BLOOD COUNT 3.25 M/uL (4.2-5.4); WHITE BLOOD COUNT 8.38 K/uL (4.8-10.8)
[2017-09-26 07:08] LABS: BUN/CREATININE RATIO 17.5 (10-20); CALCIUM 7.9 mg/dl (8.5-10.1); CREATININE 2.24 mg/dl (0.60-1.20); POTASSIUM 3.6 mmol/L (3.5-5.1)
[2017-09-26] MEDS: ALBUT/IPRATROP 3MG/0.5MG NEB 3 ML VIAL INH SCH ×4 (07:41→19:33)
[2017-09-26] MEDS: FUROSEMIDE INJ 40 MG in SYRINGE 0 ML IV SCH ×2 (07:57→18:14)
[2017-09-26] MEDS: POTASSIUM CHLORIDE 20MEQ/15ML 473ML PO SCH (07:58)
[2017-09-26] MEDS: FERROUS SULFATE 325 MG TAB PO SCH (07:58)
[2017-09-26] MEDS: AMIODARONE 200 MG TAB PO SCH (07:59)
[2017-09-26] MEDS: AZITHROMYCIN 250 MG TAB PO SCH (07:59)
[2017-09-26] MEDS: CARVEDILOL 3.125 MG TAB PO SCH ×2 (08:00→21:00)
[2017-09-26] MEDS: INSULIN ASPART 100 UNITS/ML 3 ML PEN SC SCH ×4 (08:51→21:00)
[2017-09-26] MEDS ORDERED: INSULIN GLARGINE SOLOSTAR 100 UNITS/ML 3 ML PEN SC SCH (09:00)
[2017-09-26] MEDS: CEFTRIAXONE SOD INJ 1 GM in DEXTROSE 5% ADD-VANTAGE 50ML 50 ML IV SCH (12:14)
[2017-09-26] MEDS ORDERED: POTASSIUM CHLORIDE 20 MEQ TABCR PO STA (12:50)
--- NOTE | 2017-09-26 13:34 | PROGRESS NOTE ---
DATE: 09/26/2017 CARDIOLOGY CONSULTATION FOLLOWUP NOTE The patient seen and examined. Chart, medications, telemetry reviewed. SUBJECTIVE: The patient is still breathless and fatigued this morning. Notes no chest pain or discomfort. Notes no dizziness or lightheadedness. Has manifested slow diuresis, though with only minimal drop in weight. Notes no chest pain or discomfort. Notes no headache or visual changes. OBJECTIVE: VITAL SIGNS: Heart rate is 55, blood pressure is 137/58, O2 saturations 92% on 4 liters nasal cannula. NECK: Thin. There is no distinct jugular venous distention. LUNGS: Reveal marked reduction basilar breath sounds with crackles b/l apices. CARDIOVASCULAR: Regular. There is no S3 gallop. ABDOMEN: Soft. EXTREMITIES: Reveal 3+ lower extremity edema. LABORATORY DATA: White cell count is 8.3, hemoglobin is 10.3. Sodium is 135, potassium is 3.6, chloride is 98, bicarbonate is 32, BUN is 39, creatinine is 2.24. TSH was 18.2. IMPRESSION: 1. Complex 89-year-old female admitted with acute on chronic respiratory failure, congestive heart failure with large bilateral pleural effusions. 2. Hypertensive heart disease. 3. Paroxysmal atrial fibrillation, controlled in sinus with amiodarone therapy. 4. Hypothyroidism by recent laboratory testing consistent with chronic amiodarone usage. RECOMMENDATIONS: Amiodarone has been reduced to 100 mg per day. Thyroid replacements been increased. Will continue IV diuretics today, will hold dose this evening given rise in creatinine. Ultrasound of the chest performed to assess the need for thoracentesis. 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 Will follow patient in the hospital. Further recommendations pending results of studies in a.m. compression stockings or Jordon wraps to lower extremities ordered. MTDD
--- NOTE | 2017-09-26 13:54 | Pharmacy Progress Note ---
Pharmacy Glycemic Short Note 2 Date of Service Sep 26, 2017. OUTPATIENT ANTIDIABETIC REGIMEN: * Tresiba 30 units SQ HS + Novolog BIDM * A1c = 8.9% 09/25/17 (increased from 6.9% on 06/18/17) ASSESSMENT: * 89 yo F admitted for CHF, hypertensive urgency, and acute hypoxic respiratory failure. h/o CKD - Scr at baseline * Pt well-known to glycemic service from past admissions. Her daily requirements tend to fluctuate over the course of her admissions without significant change in stress factors. She has required anywhere from 30-60 units per day. * She currently takes Tresiba 30 units HS at home. This was decreased 20% on admission (which also correlates to wt/stress 2). Pt experienced am hypoglycemia (48 mg/dL) despite dose decrease. * Will change Lantus order to be dosed per scale based on BSG and loosen bolus parameters. 09/26 * BSGs from the past 24 hours: 63, 48, 103, 164, 206 * Fasting BSG elevated following significant reduction in basal insulin yesterday * A small dose of Lantus was ordered this morning. Will conservatively increase Lantus scale at HS to avoid am hypoglycemia * BSGs trending upward throughout the day. * will tighten CF/CR (pt has needed tight carb control on previous admission) PLAN FOR INPATIENT GLYCEMIC CONTROL: * Basal insulin * Lantus 4 units SQ this am, then Lantus to 12-16 units SQ HS * 12 units for BSG < 120 mg/dL * 16 units for BSG 120 mg/dL or more * Bolus Insulin - tighten parameters * NOVOLOG per scale ACHS * Goal Range: Low 110 mg/dL - High 140 mg/dL * Correction Factor: 25 mg/dL/unit * Nutritional / Prandial insulin per carb ratio of 1 unit per 8 grams CHO consumed PLAN FOR DISCHARGE: * A1c 8.9 % * Reasonable to continue home regimen on discharge as long as patient is not experiencing am hypoglycemia. Continue to titrate insulin regimen per outpatient provider. Thank you.
--- NOTE | 2017-09-26 14:50 | DIAGNOSTIC IMAGING REPORT ---
EFFUSION-CHEST/MEDIASTINUM HISTORY: 89 years-old Female b/l effusion follow-up study in a patient with bilateral pleural effusions COMPARISON: Ultrasound 06/23/2017, chest radiograph 09/25/2017 TECHNIQUE: Multiple real-time sonogram images of the chest were obtained assessing grayscale appearance FINDINGS: Moderate right-sided pleural effusion demonstrates a volume of 1381 mL. Right side was marked for thoracentesis. Small left pleural effusion demonstrates a volume of 303 mL. Atelectatic lung is noted within the bilateral lung bases. IMPRESSION: Moderate right and small left pleural effusions as above. The right side was marked for thoracentesis. The above report was generated using voice recognition software. It may contain grammatical, syntax or spelling errors. Electronically signed by: Larry Trujillo M.D. 09/26/2017 2:48 PM Dictated Date/Time: 09/26/2017 2:46 PM
--- NOTE | 2017-09-26 19:53 | Progress Note ---
Medicine Progress Note Date & Time of Visit: Sep 26, 2017 at 10:44. Subjective Pt was seen and examined Sitting at the edge of the eating She said that she feels much better Denies any chest pain, palpitation, dizziness Objective Last 8 Hrs Date Time Temp Pulse Resp B/P (MAP) Pulse Ox O2 Delivery O2 Flow Rate FiO2 09/26/17 19:37 52 16 93 Nasal Cannula 4.0 09/26/17 18:13 181/74 (109) 09/26/17 16:00 Nasal Cannula 4.0 09/26/17 15:18 36.6 55 18 181/65 (103) 95 Nasal Cannula 5.0 09/26/17 14:48 58 14 93 Nasal Cannula 4.0 09/26/17 14:23 55 174/62 (99) 09/26/17 12:09 Nasal Cannula 4.0 Physical Exam: General- no acute distress Head- atraumatic Eyes- PERRL, EOMI ENT- oropharynx clear Neck- supple, no JVD Lungs- No wheezing, decrease BS Heart- regular rhythm Abdomen- normal bowel sounds, soft Extremities- +edema, no calf tenderness Neuro- alert, oriented, PERRL, EOMI Skin- warm & dry Laboratory Results: Last 24 Hours Test 09/25/17 20:18 09/26/17 05:49 09/26/17 07:42 09/26/17 11:37 Bedside Glucose 206 mg/dl 197 mg/dl 199 mg/dl White Blood Count 8.38 K/uL Red Blood Count 3.25 M/uL Hemoglobin 10.3 g/dL Hematocrit 31.7 % Mean Corpuscular Volume 97.5 fL Mean Corpuscular Hemoglobin 31.7 pg Mean Corpuscular Hemoglobin Concent 32.5 g/dl RDW Standard Deviation 56.0 fL RDW Coefficient of Variation 15.6 % Platelet Count 132 K/uL Mean Platelet Volume 10.4 fL Sodium Level 135 mmol/L Potassium Level 3.6 mmol/L Chloride Level 98 mmol/L Carbon Dioxide Level 32 mmol/L Anion Gap 5.0 mmol/L Blood Urea Nitrogen 39 mg/dl Creatinine 2.24 mg/dl Est Creatinine Clear Calc Drug Dose 15.3 ml/min Estimated GFR () 21.8 Estimated GFR (Non- 18.8 BUN/Creatinine Ratio 17.5 Random Glucose 192 mg/dl Calcium Level 7.9 mg/dl Magnesium Level 2.0 mg/dl Procalcitonin 0.19 ng/ml Test 09/26/17 16:36 Bedside Glucose 258 mg/dl Assessment & Plan ACUTE ON CHRONIC DIASTOLIC CHF Present with SOB and elevated BNP on admission CXR on admission showed bilateral bibasilar parenchymal infiltrative change with underlying pleural effusions and/or consolidative change. Repeat CXR today showed persistent moderate to large bilateral pleural effusions with associated bibasilar opacities U/S showed Moderate right and small left pleural effusions as above. The right side was marked for thoracentesis. On IV lasix BID 40mg Cardiology on board Will hold tonight dose of lasix due to elevated creatine Mild elevated troponin that trends down Continue monitor in telemetry ECHO done today showed * The left ventricle is normal in size. * There is severe concentric left ventricular hypertrophy. * The left ventricular wall motion is normal. * Ejection Fraction = 65-70%. * The left atrium is moderately dilated. * Aortic valve sclerosis moderate, without significant aortic valvular stenosis. * Calcified mitral apparatus causing mitral stenosis. * There is mild mitral stenosis. * There is mild to moderate mitral regurgitation. * There is moderate tricuspid regurgitation. HTN URGENCY BP no at goal Continue metoprolol Hydralazine IV prn >165 systolic continue monitor BP ACUTE HYPOXIC RESPIRATORY FAILURE CXR showed Persistent moderate to large bilateral pleural effusions with associated bibasilar opacities Continue Rocephin, Zithromax in ER. Blood cultures no growth Pulmonology on board Continue BIPAP intermittently and at night D/C Rocephin and Zithromax Procalcitonin Normal Continue monitor HYPOKALEMIA Stable Continue monitor BMP HX PAROXYSMAL A-FIB Rate controlled on NSR Continue amiodarone and metoprolol CKD STAGE IV Cr: 2.09, stable baseline Creatine today 2.2 Hold lasix tonight dose Avoid nephrotoxic agents Continue monitor BMP DM II HgbA1c 8.9 on 09/25/17 Trebisa on hold NovoLog sliding scale Continue monitor BS HYPOTHYROIDISM TSH 18 Levothyroxine increased to 75mcg Repeat TSH in 4-6 weeks DYSLIPIDEMIA On atorvastatin DVT PROPHYLAXIS On heparin SQ DISPOSITION Continue monitor in telemetry Consultants: Cardio Pulmonology Current Inpatient Medications: Current Inpatient Medications Medications (Trade) Dose Ordered Sig/Mustapha Route Start Time Stop Time Status Last Admin Dose Admin Atorvastatin Calcium (Lipitor Tab) 40 mg HS PO 09/24/17 21:00 10/24/17 20:59 09/25/17 21:07 40 MG Ferrous Sulfate (Feosol Tab) 325 mg QAM PO 09/25/17 09:00 10/25/17 08:59 09/26/17 07:58 325 MG Hydralazine HCl (Apresoline Tab) 50 mg TID PO 09/24/17 21:00 10/24/17 20:59 09/26/17 14:24 50 MG Heparin Sodium (Porcine) (Heparin Sq 5000 Unit/0.5ml) 5,000 unit Q8 SQ 09/24/17 22:00 10/24/17 21:59 09/26/17 14:25 5,000 UNIT Acetaminophen (Tylenol Tab) 650 mg Q4H PRN PO 09/24/17 14:15 10/24/17 14:14 Al Hydrox/Mg Hydrox/Simethicone (Maalox Max Susp) 15 ml Q4H PRN PO 09/24/17 14:15 10/24/17 14:14 Magnesium Hydroxide (Milk Of Magnesia Susp) 30 ml Q12H PRN PO 09/24/17 14:15 10/24/17 14:14 Ondansetron HCl (Zofran Inj) 4 mg Q6H PRN IV 09/24/17 14:15 10/24/17 14:14 Nitroglycerin (Nitrostat Tab) 0.4 mg UD PRN SL 09/24/17 14:15 10/24/17 14:14 Polyethylene (Miralax Powder Packet) 17 gm DAILY PRN PO 09/24/17 14:15 10/24/17 14:14 Glucose (Glucose 40% Gel) 15-30 GRAMS 15 GRAMS... UD PRN PO 09/24/17 14:15 10/24/17 14:14 Glucose (Glucose Chew Tab) 4-8 Tablets 4 Tabl... UD PRN PO 09/24/17 14:15 10/24/17 14:14 Dextrose (Dextrose 50% 50ML Syringe) 25-50ML OF 50% DW IV FOR... UD PRN IV 09/24/17 14:15 10/24/17 14:14 Glucagon (Glucagon Inj) 1 mg UD PRN SQ 09/24/17 14:15 10/24/17 14:14 Miscellaneous Information (Consult Glycemic Management Pharmacy) 1 ea UD PRN N/A 09/24/17 14:35 10/24/17 14:34 Furosemide 40 mg/ Syringe 4 ml @ 4 mls/min Q12@0900,1700 IV 09/24/17 20:00 10/24/17 19:59 Future Hold 09/26/17 18:14 4 MLS/MIN Albuterol/ Ipratropium (Duoneb) 3 ml QIDR INH 09/24/17 16:00 10/24/17 15:59 09/26/17 19:33 3 ML Ceftriaxone Sodium 1 gm/ Dextrose 50 ml @ 100 mls/hr Q24H IV 09/25/17 12:00 10/02/17 11:59 09/26/17 12:14 100 MLS/HR Azithromycin (Zithromax Tab) 500 mg QAM PO 09/25/17 09:00 10/02/17 08:59 09/26/17 07:59 500 MG Hydralazine HCl (HydrALAZINE INJ) 10 mg Q8 PRN IV. 09/24/17 14:30 10/24/17 14:29 09/26/17 00:33 10 MG Isosorbide Mononitrate (Ismo Tab) 20 mg TID@0700,1400,2100 PO 09/24/17 21:00 10/24/17 20:59 Future Hold Potassium Chloride (Melissa Ciel Elix) 10 meq QAM PO 09/25/17 09:00 10/25/17 08:59 09/26/17 07:58 10 MEQ Insulin Aspart (novoLOG ASPART) SLIDING SCALE ACHS SC 09/24/17 16:30 10/24/17 16:29 09/26/17 18:22 11 UNITS Carvedilol (Coreg Tab) 3.125 mg BID PO 09/24/17 21:00 10/24/17 20:59 09/26/17 08:00 3.125 MG Nitroglycerin (Nitroglycerin 2% Oint) 1 inch Q6H EXT 09/24/17 16:30 10/24/17 16:29 09/26/17 18:15 1 INCH Levothyroxine Sodium (Synthroid Tab) 75 mcg DAILYBB PO 09/26/17 06:30 10/25/17 06:59 09/26/17 06:02 75 MCG Amiodarone HCl (Cordarone Tab) 100 mg QAM PO 09/26/17 09:00 10/25/17 08:59 09/26/17 07:59 100 MG Insulin Glargine (Lantus Solostar Pen) SEE PROTOCOL TEXT HS SC 09/25/17 21:00 10/25/17 20:59 09/25/17 21:04 16 UNITS
[2017-09-26] MEDS: ATORVASTATIN 40 MG TAB PO SCH (20:56)
[2017-09-26] MEDS: INSULIN GLARGINE SOLOSTAR 100 UNITS/ML 3 ML PEN SC SCH (20:59)
[2017-09-27] VITALS (11 sets, daily range): BP systolic 144–194; BP diastolic 54–67; PULSE 56–69; TEMP 36.4–36.9; O2SAT 91–97; BMI 23.3
[2017-09-27] MEDS: NITROGLYCERIN OINT 2% 1GM PACKET EXT SCH ×4 (05:33→23:46)
[2017-09-27] MEDS: LEVOTHYROXINE 75 MCG TAB PO SCH (05:34)
[2017-09-27] MEDS: HEPARIN SOD 5000 UNIT/0.5 ML CARP SQ SCH ×3 (05:40→21:08)
[2017-09-27 06:29] LABS: HEMATOCRIT 31.9 % (37-47); MEAN CELL VOLUME 96.7 fL (80-100); MEAN CORPUSCULAR HEMOGLOBIN 32.1 pg (25-34); MEAN CORPUSCULAR HGB CONC 33.2 g/dl (32-36); PLATELET COUNT 151 K/uL (130-400); WHITE BLOOD COUNT 8.55 K/uL (4.8-10.8)
[2017-09-27 07:09] LABS: BUN/CREATININE RATIO 17.9 (10-20); CALCIUM 8.1 mg/dl (8.5-10.1); CREATININE 2.43 mg/dl (0.60-1.20); POTASSIUM 3.4 mmol/L (3.5-5.1)
[2017-09-27] MEDS ORDERED: POTASSIUM CHLORIDE 20 MEQ TABCR PO ONE (07:30)
[2017-09-27] MEDS: ALBUT/IPRATROP 3MG/0.5MG NEB 3 ML VIAL INH SCH ×4 (07:34→19:41)
[2017-09-27] MEDS: FERROUS SULFATE 325 MG TAB PO SCH (07:50)
[2017-09-27] MEDS: AMIODARONE 200 MG TAB PO SCH (07:50)
[2017-09-27] MEDS: AZITHROMYCIN 250 MG TAB PO SCH (07:51)
[2017-09-27] MEDS: POTASSIUM CHLORIDE 20MEQ/15ML 473ML PO SCH (07:51)
[2017-09-27] MEDS: CARVEDILOL 3.125 MG TAB PO SCH (07:52)
[2017-09-27] MEDS: INSULIN ASPART 100 UNITS/ML 3 ML PEN SC SCH ×4 (07:58→21:07)
--- NOTE | 2017-09-27 08:56 | Clinical Documentation Query ---
CLINICAL DOCUMENTATION QUERY 89 y/o F with PMH HTN, Hyperlipidemia, chronic diastolic HF, paroxysmal a-fib,DM II insulin dependent, hx breast CA, CKD stage IV presented to ER from PCP office for hypoxia. In your clinical opinion is this patient being managed for: ( ) Acute kidney failure ( ) Not Agree ( ) Other explanation of clinical findings (Please Explain) ( ) Unable to determine (Please Define) ( ) Need to Discuss The medical record reflects the following clinical findings, treatment, and risk factors. Clinical Indicators: Creatinine 2.09 trending up to 2.43, GFR 20.5 trending down to 17.1 Treatment: I&O, serial PRPs, guerra catheter Risk Factors: Age, CHF, CKD, HTN Please clarify and document your clinical opinion in the progress notes and discharge summary. Terms such as "probable", "suspected", "likely", "questionable", "possible", or "still to be ruled out" are acceptable. IF IN AGREEMENT, YOU MUST DOCUMENT ABOVE DIAGNOSTIC STATEMENT IN DAILY PROGRESS NOTES AND DISCHARGE SUMMARY. This document is not part of the patient's record. Thank You, Patience Vanessa RN [phone]
--- NOTE | 2017-09-27 12:21 | PROGRESS NOTE ---
DATE: 09/27/2017 The patient seen and examined. Chart, medications, telemetry reviewed. SUBJECTIVE: The patient still feels moderately breathless. Leg edema was only minimally improved. She remains with fairly high O2 requirements with 4 L nasal cannula. Notes no chest pains. Notes no tachypalpitations. Appetite has been only fair. Weight is little change from recent admission. OBJECTIVE: VITAL SIGNS: Heart rate is 58, blood pressure is 161/67. HEENT: Normocephalic and atraumatic. Nares without discharge. Throat was thinned. NECK: There is no distinct jugular venous distension with patient examined upright. LUNGS: Markedly diminished breath sounds at the right base and moderate at the left base with scattered crackles in the apices. CARDIOVASCULAR: Regular but bradycardic. There is no S3 gallop. ABDOMEN: Soft. EXTREMITIES: Reveal 2+ lower extremity edema to the knees. IMPRESSION: Complex 89-year-old female with: 1. Acute on chronic decompensated diastolic heart failure with large bilateral pleural effusions, right greater than left. 2. History of longstanding hypertension with hypertensive heart disease. 3. History of paroxysmal atrial fibrillation, controlled in sinus rhythm with amiodarone therapy. 4. Conduction system disease with bifascicular block. 5. Chronic renal insufficiency. 6. Marked left ventricular hypertrophy with normal hyperdynamic LV function. RECOMMENDATIONS: The patient underwent chest ultrasound earlier today which demonstrates large bilateral effusions. Will refer for therapeutic thoracentesis. Will supplement potassium. Continue IV diuretics cautiously. Carvedilol will be discontinued. Thyroid replacement has been increased given significant hypothyroidism on laboratory testing. In the interim, we will also increase hydralazine to 50 mg 4 times per day for further blood pressure control. Will follow patient in the hospital.
--- NOTE | 2017-09-27 14:04 | Pharmacy Progress Note ---
Pharmacy Glycemic Short Note 2 Date of Service Sep 27, 2017. OUTPATIENT ANTIDIABETIC REGIMEN: * Tresiba 30 units SQ HS + Novolog BIDM * A1c = 8.9% 09/25/17 (increased from 6.9% on 06/18/17) ASSESSMENT: * Patient has received 47 units of insulin over the past 24hrs * 20 units of basal * 27 units of prandial/correctional * BSGs over the past 24hrs: 197, 199, 258, 212, 176 mg/dl * AM fasting BSG is in goal range today at 123 mg/dl * pt received 24 units on 09/24 yielding a fasting BSG of 48 mg/dl * pt received 16 units on 09/25 yielding a fasting BSG of 197 mg/dl * pt received 20 units on 09/26 yielding a fasting BSG of 123 mg/dl * Will continue Lantus 20 units HS, but give a slightly reduced dose of 18 units if BSG low * Post-prandial BSGs are elevated --> will tighten CF/CR PLAN FOR INPATIENT GLYCEMIC CONTROL: Per Patient request and PCP BSGs are to remain ~ 200mg/dl. Will increase NovoLog goal range and continue reduced outpatient basal insulin dosing to prevent hypo. * Basal insulin * Lantus 16-18 units SQ HS * 16 units if BSG < 140 mg/dl * 18 units if BSG 140+ * Bolus insulin * NovoLog per scale ACHS or Q6hrs while NPO * Goal Range: -L-o-w- -1-1-0- -m-g--/--d-L- --- -H-i-g-h- -1-4-0- -m-g--/- -d-L- - - ->- Low 140 mg/dL - High 180 mg/dL increase goal range per patient request * Correction Factor: 20 mg/dL/unit * Nutritional / Prandial insulin per carb ratio of 1 unit per 7 grams CHO consumed
--- NOTE | 2017-09-27 15:31 | Procedure Note ---
Procedure Note Date of Service Sep 27, 2017. Procedure Note Procedures: Right sided Thoracentesis Consent: obtained via the patient and placed into the chart by Dr. Chatterjee Pre-Procedural Dx: Right-sided pleural effusion Post-Procedural Dx: Right sided pleural effusion Analgesia: 4cc of 1% Liquid Lidocaine Procedure: The patient was placed in an upright position and thoracic US was used to select a spot for the procedure. A spot along the posterior axillary line was marked in the 7th intercostal space. The patient was then draped and prepped in a sterile fashion. A modified Seldinger technique was then used for catheter placement. Flowing this approximately 1200 cc of clear yellow pleural fluid was removed. The patient was then cleaned and placed at a 60 degree angle in the bed were the US was used to evaluate for possible pneumothorax. The US showed good lung sliding and starry night sign. EBL: 1 cc Assisted by: Dr. Chatterjee Complications: None
[2017-09-27 16:07] LABS: PLEURAL FLUID TOTAL PROTEIN 1.9 g/dl
[2017-09-27 16:54] LABS: PLEURAL FLUID APPEARANCE HAZY; PLEURAL FLUID COLOR YELLOW; PLEURAL FLUID SOURCE RIGHT LUNG; PLEURAL FLUID WBC (A) 368 /uL
--- NOTE | 2017-09-27 19:09 | Progress Note ---
Medicine Progress Note Date & Time of Visit: Sep 27, 2017 at 19:01. Subjective Pt was seen and examined Sitting in chair with no distress Pt said that she feels much better Denies any chest pain, palpitation, dizziness and SOB Objective Last 8 Hrs Date Time Temp Pulse Resp B/P (MAP) Pulse Ox O2 Delivery O2 Flow Rate FiO2 09/27/17 15:59 Nasal Cannula 4.0 09/27/17 15:50 58 16 97 Nasal Cannula 2.0 09/27/17 15:38 36.8 56 22 178/56 (96) 96 Nasal Cannula 2.0 09/27/17 13:05 56 144/63 (90) 09/27/17 12:00 Nasal Cannula 4.0 09/27/17 11:49 36.4 58 17 194/65 (108) 96 Nasal Cannula 4.0 09/27/17 11:42 57 16 94 Nasal Cannula 2.0 Physical Exam: General- no acute distress Head- atraumatic Eyes- PERRL, EOMI ENT- oropharynx clear Neck- supple, no JVD Lungs- No wheezing, decrease BS Heart- regular rhythm Abdomen- normal bowel sounds, soft Extremities- +edema, no calf tenderness Neuro- alert, oriented, PERRL, EOMI Skin- warm & dry Laboratory Results: Last 24 Hours Test 09/26/17 20:38 09/27/17 05:47 09/27/17 07:54 09/27/17 11:54 Bedside Glucose 212 mg/dl 123 mg/dl 176 mg/dl White Blood Count 8.55 K/uL Red Blood Count 3.30 M/uL Hemoglobin 10.6 g/dL Hematocrit 31.9 % Mean Corpuscular Volume 96.7 fL Mean Corpuscular Hemoglobin 32.1 pg Mean Corpuscular Hemoglobin Concent 33.2 g/dl RDW Standard Deviation 53.8 fL RDW Coefficient of Variation 15.2 % Platelet Count 151 K/uL Mean Platelet Volume 10.0 fL Sodium Level 135 mmol/L Potassium Level 3.4 mmol/L Chloride Level 97 mmol/L Carbon Dioxide Level 32 mmol/L Anion Gap 6.0 mmol/L Blood Urea Nitrogen 44 mg/dl Creatinine 2.43 mg/dl Est Creatinine Clear Calc Drug Dose 14.1 ml/min Estimated GFR () 19.8 Estimated GFR (Non- 17.1 BUN/Creatinine Ratio 17.9 Random Glucose 118 mg/dl Calcium Level 8.1 mg/dl Magnesium Level 2.0 mg/dl Test 09/27/17 15:20 09/27/17 16:28 Pleural Fluid Source RIGHT LUNG Pleural Fluid Color YELLOW Pleural Fluid Appearance HAZY Pleural Fluid WBC 368 /uL Pleural Fluid RBC < 3000 /uL Pleural Fluid pH 7.41 Pleural Fluid Polynuclear WBCs % 25.0 % Pleural Fluid Mononuclear WBCs % 75.0 % Pleural Fluid Total Protein 1.9 g/dl Pleural Fluid LDH 78 IU Pleural Fluid Glucose 207 mg/dl Bedside Glucose 207 mg/dl Date/Time Source Procedure Growth Status 09/27/17 15:20 Pleural Fluid (Thoracentesis) Right Acid Fast Stain Pending Received 09/27/17 15:20 Pleural Fluid (Thoracentesis) Right Mycobacterial Culture Pending Received 09/27/17 15:20 Pleural Fluid (Thoracentesis) Right Gram Stain - Final Resulted 09/27/17 15:20 Pleural Fluid (Thoracentesis) Right Bacterial Culture Pending Resulted Assessment & Plan ACUTE ON CHRONIC DIASTOLIC CHF Present with SOB and elevated BNP on admission CXR on admission showed bilateral bibasilar parenchymal infiltrative change with underlying pleural effusions and/or consolidative change. Repeat CXR today showed persistent moderate to large bilateral pleural effusions with associated bibasilar opacities U/S showed Moderate right and small left pleural effusions as above. The right side was marked for thoracentesis. Lasix on hold due to elevated creatine Cardiology on board Mild elevated troponin that trends down Continue monitor in telemetry ECHO done today showed * The left ventricle is normal in size. * There is severe concentric left ventricular hypertrophy. * The left ventricular wall motion is normal. * Ejection Fraction = 65-70%. * The left atrium is moderately dilated. * Aortic valve sclerosis moderate, without significant aortic valvular stenosis. * Calcified mitral apparatus causing mitral stenosis. * There is mild mitral stenosis. * There is mild to moderate mitral regurgitation. * There is moderate tricuspid regurgitation. HTN URGENCY BP no at goal Continue metoprolol Hydralazine increased to 50mg qid Hydralazine IV prn >165 systolic continue monitor BP ACUTE HYPOXIC RESPIRATORY FAILURE CXR showed Persistent moderate to large bilateral pleural effusions with associated bibasilar opacities Continue Rocephin, Zithromax in ER. Blood cultures no growth Pulmonology on board Continue BIPAP intermittently and at night D/C Rocephin and Zithromax Procalcitonin Normal Continue monitor PLEURAL EFFUSION S/P right sided thoracentesis 1200 cc of clear yellow pleural fluid was removed. No complication Continue monitor HYPOKALEMIA Stable Continue monitor BMP HX PAROXYSMAL A-FIB Rate controlled on NSR Continue amiodarone and metoprolol CKD STAGE IV Cr: 2.09, stable baseline Creatine today 2.4 Continue holding lasix Avoid nephrotoxic agents Continue monitor BMP DM II HgbA1c 8.9 on 09/25/17 Trebisa on hold NovoLog sliding scale Continue monitor BS HYPOTHYROIDISM TSH 18 Levothyroxine increased to 75mcg Repeat TSH in 4-6 weeks DYSLIPIDEMIA On atorvastatin DVT PROPHYLAXIS On heparin SQ DISPOSITION Continue monitor in telemetry Consultants: Cardio Pulmonology Current Inpatient Medications: Current Inpatient Medications Medications (Trade) Dose Ordered Sig/Mustapha Route Start Time Stop Time Status Last Admin Dose Admin Atorvastatin Calcium (Lipitor Tab) 40 mg HS PO 09/24/17 21:00 10/24/17 20:59 09/26/17 20:56 40 MG Ferrous Sulfate (Feosol Tab) 325 mg QAM PO 09/25/17 09:00 10/25/17 08:59 09/27/17 07:50 325 MG Heparin Sodium (Porcine) (Heparin Sq 5000 Unit/0.5ml) 5,000 unit Q8 SQ 09/24/17 22:00 10/24/17 21:59 09/27/17 14:18 5,000 UNIT Acetaminophen (Tylenol Tab) 650 mg Q4H PRN PO 09/24/17 14:15 10/24/17 14:14 Al Hydrox/Mg Hydrox/Simethicone (Maalox Max Susp) 15 ml Q4H PRN PO 09/24/17 14:15 10/24/17 14:14 Magnesium Hydroxide (Milk Of Magnesia Susp) 30 ml Q12H PRN PO 09/24/17 14:15 10/24/17 14:14 Ondansetron HCl (Zofran Inj) 4 mg Q6H PRN IV 09/24/17 14:15 10/24/17 14:14 Nitroglycerin (Nitrostat Tab) 0.4 mg UD PRN SL 09/24/17 14:15 10/24/17 14:14 Polyethylene (Miralax Powder Packet) 17 gm DAILY PRN PO 09/24/17 14:15 10/24/17 14:14 Glucose (Glucose 40% Gel) 15-30 GRAMS 15 GRAMS... UD PRN PO 09/24/17 14:15 10/24/17 14:14 Glucose (Glucose Chew Tab) 4-8 Tablets 4 Tabl... UD PRN PO 09/24/17 14:15 10/24/17 14:14 Dextrose (Dextrose 50% 50ML Syringe) 25-50ML OF 50% DW IV FOR... UD PRN IV 09/24/17 14:15 10/24/17 14:14 Glucagon (Glucagon Inj) 1 mg UD PRN SQ 09/24/17 14:15 10/24/17 14:14 Miscellaneous Information (Consult Glycemic Management Pharmacy) 1 ea UD PRN N/A 09/24/17 14:35 10/24/17 14:34 Furosemide 40 mg/ Syringe 4 ml @ 4 mls/min Q12@0900,1700 IV 09/24/17 20:00 10/24/17 19:59 Future Hold 09/26/17 18:14 4 MLS/MIN Albuterol/ Ipratropium (Duoneb) 3 ml QIDR INH 09/24/17 16:00 10/24/17 15:59 09/27/17 15:50 3 ML Azithromycin (Zithromax Tab) 500 mg QAM PO 09/25/17 09:00 10/02/17 08:59 09/27/17 07:51 500 MG Hydralazine HCl (HydrALAZINE INJ) 10 mg Q8 PRN IV. 09/24/17 14:30 10/24/17 14:29 09/26/17 00:33 10 MG Isosorbide Mononitrate (Ismo Tab) 20 mg TID@0700,1400,2100 PO 09/24/17 21:00 10/24/17 20:59 Future Hold Potassium Chloride (Melissa Ciel Elix) 10 meq QAM PO 09/25/17 09:00 10/25/17 08:59 09/27/17 07:51 10 MEQ Insulin Aspart (novoLOG ASPART) SLIDING SCALE ACHS SC 09/24/17 16:30 10/24/17 16:29 09/27/17 17:18 7 UNITS Nitroglycerin (Nitroglycerin 2% Oint) 1 inch Q6H EXT 09/24/17 16:30 10/24/17 16:29 09/27/17 17:19 1 INCH Levothyroxine Sodium (Synthroid Tab) 75 mcg DAILYBB PO 09/26/17 06:30 10/25/17 06:59 09/27/17 05:34 75 MCG Amiodarone HCl (Cordarone Tab) 100 mg QAM PO 09/26/17 09:00 10/25/17 08:59 09/27/17 07:50 100 MG Insulin Glargine (Lantus Solostar Pen) SEE PROTOCOL TEXT HS SC 09/25/17 21:00 10/25/17 20:59 09/26/17 20:59 16 UNITS Hydralazine HCl (Apresoline Tab) 50 mg QID PO 09/27/17 13:00 10/24/17 20:59 09/27/17 17:18 50 MG
[2017-09-27] MEDS: ATORVASTATIN 40 MG TAB PO SCH (21:04)
[2017-09-27] MEDS: INSULIN GLARGINE SOLOSTAR 100 UNITS/ML 3 ML PEN SC SCH (21:07)
[2017-09-28] VITALS (10 sets, daily range): BP systolic 144–191; BP diastolic 52–72; PULSE 62–75; TEMP 36.5–37.4; O2SAT 93–96
[2017-09-28] MEDS: LEVOTHYROXINE 75 MCG TAB PO SCH (06:00)
[2017-09-28] MEDS: NITROGLYCERIN OINT 2% 1GM PACKET EXT SCH ×4 (06:00→23:14)
[2017-09-28] MEDS: HEPARIN SOD 5000 UNIT/0.5 ML CARP SQ SCH ×3 (06:05→20:39)
[2017-09-28 06:56] LABS: HEMATOCRIT 34.5 % (37-47); MEAN CELL VOLUME 96.4 fL (80-100); MEAN CORPUSCULAR HEMOGLOBIN 31.3 pg (25-34); MEAN CORPUSCULAR HGB CONC 32.5 g/dl (32-36); MEAN PLATELET VOLUME 10.4 fL (7.4-10.4); PLATELET COUNT 171 K/uL (130-400); RED BLOOD COUNT 3.58 M/uL (4.2-5.4); WHITE BLOOD COUNT 8.62 K/uL (4.8-10.8)
[2017-09-28 07:29] LABS: BUN/CREATININE RATIO 18.1 (10-20); CALCIUM 8.1 mg/dl (8.5-10.1); CREATININE 2.65 mg/dl (0.60-1.20); MAGNESIUM 2.2 mg/dl (1.8-2.4)
[2017-09-28] MEDS: ALBUT/IPRATROP 3MG/0.5MG NEB 3 ML VIAL INH SCH ×4 (07:35→18:50)
[2017-09-28] MEDS: AMIODARONE 200 MG TAB PO SCH (08:10)
[2017-09-28] MEDS: FERROUS SULFATE 325 MG TAB PO SCH (08:10)
[2017-09-28] MEDS: AZITHROMYCIN 250 MG TAB PO SCH (08:11)
[2017-09-28] MEDS: POTASSIUM CHLORIDE 20MEQ/15ML 473ML PO SCH (08:12)
[2017-09-28] MEDS: INSULIN ASPART 100 UNITS/ML 3 ML PEN SC SCH ×4 (08:16→20:39)
--- NOTE | 2017-09-28 11:00 | DIAGNOSTIC IMAGING REPORT ---
CHEST ONE VIEW PORTABLE CLINICAL HISTORY: 89 years-old Female presenting with chf. TECHNIQUE: Portable upright AP view of the chest was obtained. COMPARISON: 09/25/2017. FINDINGS: Atherosclerosis of aortic arch. Cardiac silhouette enlarged, unchanged. Prominence of pulmonary vasculature in the upper lobes. Stable to slight interval decrease in perihilar and bibasilar opacities with decreased size of now small bilateral pleural effusions. Multiple overlying external leads degrade image quality. Osseous structures normal. Upper abdomen normal. IMPRESSION: 1. Cardiomegaly with decreasing pulmonary edema and pleural effusions. Electronically signed by: Jeyson Joy M.D. 09/28/2017 10:59 AM Dictated Date/Time: 09/28/2017 10:57 AM
--- NOTE | 2017-09-28 11:20 | PROGRESS NOTE ---
DATE: 09/28/2017 CARDIOLOGY CONSULTATION FOLLOWUP NOTE The patient seen and examined. Chart, medications, telemetry reviewed. SUBJECTIVE: The patient feels improved today with better aeration. Notes no chest pain or discomfort. Notes no dizziness or lightheadedness. Continues to have 2+ lower extremity edema, has not been wearing support stockings. OBJECTIVE: VITAL SIGNS: Heart rate is 68, blood pressure is 161/64. HEENT: Normocephalic, atraumatic. NECK: Thin. LUNGS: Reveal crackles at the apices, bases revealed better aeration to the right base. CARDIOVASCULAR: Regular. There is no S3 gallop. ABDOMEN: Soft. EXTREMITIES: Reveal 2+ lower extremity edema. IMAGING DATA: Chest x-ray performed today reveals moderate bilateral pleural effusions, substantial improvement in the right base, clear lung garcia apically. LABORATORY DATA: White cell count is 8.6, hemoglobin is 11.2. Sodium is 136, potassium is 4.0, chloride is 97, bicarbonate 31, BUN is 48, and creatinine is 2.65. IMPRESSION: An 89-year-old female presented with decompensated diastolic heart failure with lower extremity edema and bilateral pleural effusions, likely in part combination to volume retention, hypothyroidism and bradycardia. Heart rates are improved since discontinue of Toprol, will continue low dose amiodarone. We will continue to hold furosemide today, would likely resume oral dose in a.m. following renal function. Thyroid replacement has been increased. She has responded appropriately to thoracentesis and improved clinical status.
--- NOTE | 2017-09-28 11:41 | Pulmonology Progress Note ---
Pulmonary Progress Note Date of Service Sep 28, 2017. Attending Dr. Chatterjee Subjective Patient is feeling slightly improved this morning. She did some breathing exercises yesterday evening and felt that her inspiration was easier. Pleural fluid analysis: Culture: NGTD AFB: Pending pH 7.41 WBC 368 RBC <3000 Total protein 1.9 LDH 78 Glucose 207 Patient continues to have notable fluid overload. Unfortunately, her kidney function has not improved yet at this time. She continues to be followed by cardiology. Furosemide being held today. Repeat Chest X-Ray today showed cardiomegaly with decreasing pulmonary edema and pleural effusions. Images were viewed by me and reviewed and Dr. Chatterjee. Objective VS reviewed: Afebrile HR 65 RR 16 BP 172/72 SaO2 94-96% on 2 L via nasal cannula General: Patient is awake, alert, cooperative, and in no acute distress. Well developed. Well-nourished. Head: Normocephalic, Atraumatic. ENT: PERRLA, No discharge, EOMI, Sclera normal Neck: Normal ROM. Trachea midline. No stridor Respiratory: Mild crackles right base. Improved aeration of b/l bases today. No respiratory distress. No accessory muscle use. Cardiovascular: Regular rate and rhythm. Abdomen:Normal bowel sounds hear throughout. Back: Normal inspection. Extremities: 2+ pitting edema b/l LE. Normal ROM Neuro: Alert, Oriented x 3. CN II-XII grossly intact. Sensation and motor function grossly intact. Psych: Mood and affect are normal. CHEST ONE VIEW PORTABLE CLINICAL HISTORY: 89 years-old Female presenting with chf. TECHNIQUE: Portable upright AP view of the chest was obtained. COMPARISON: 09/25/2017. FINDINGS: Atherosclerosis of aortic arch. Cardiac silhouette enlarged, unchanged. Prominence of pulmonary vasculature in the upper lobes. Stable to slight interval decrease in perihilar and bibasilar opacities with decreased size of now small bilateral pleural effusions. Multiple overlying external leads degrade image quality. Osseous structures normal. Upper abdomen normal. IMPRESSION: 1. Cardiomegaly with decreasing pulmonary edema and pleural effusions. Assessment & Plan Bilateral pleural effusions s/p right-sided thoracentesis Decompensated diastolic heart failure CKD Stage IV Lower extremity edema Acute hypoxic respiratory failure Patient is slightly improved today following right-sided thoracentesis in regards to respiratory symptoms. She continues to have fluid overload and is being followed closely by primary team and cardiology. From a respiratory standpoint, she has improved and is saturating well on nasal cannula O2. Recommend continued O2 supplementation to maintain SaO2 >92%. Continue diuresis when able with worsened kidney function. Pulmonary will sign off. Please call with questions or change in respiratory status. Thanks Patient seen and case reviewed and agreed with the plan. Data Medications: Current Inpatient Medications Medications (Trade) Dose Ordered Sig/Mustapha Route Start Time Stop Time Status Last Admin Dose Admin Atorvastatin Calcium (Lipitor Tab) 40 mg HS PO 09/24/17 21:00 10/24/17 20:59 09/27/17 21:04 40 MG Ferrous Sulfate (Feosol Tab) 325 mg QAM PO 09/25/17 09:00 10/25/17 08:59 09/28/17 08:10 325 MG Heparin Sodium (Porcine) (Heparin Sq 5000 Unit/0.5ml) 5,000 unit Q8 SQ 09/24/17 22:00 10/24/17 21:59 09/28/17 06:05 5,000 UNIT Acetaminophen (Tylenol Tab) 650 mg Q4H PRN PO 09/24/17 14:15 10/24/17 14:14 Al Hydrox/Mg Hydrox/Simethicone (Maalox Max Susp) 15 ml Q4H PRN PO 09/24/17 14:15 10/24/17 14:14 Magnesium Hydroxide (Milk Of Magnesia Susp) 30 ml Q12H PRN PO 09/24/17 14:15 10/24/17 14:14 Ondansetron HCl (Zofran Inj) 4 mg Q6H PRN IV 09/24/17 14:15 10/24/17 14:14 Nitroglycerin (Nitrostat Tab) 0.4 mg UD PRN SL 09/24/17 14:15 10/24/17 14:14 Polyethylene (Miralax Powder Packet) 17 gm DAILY PRN PO 09/24/17 14:15 10/24/17 14:14 Glucose (Glucose 40% Gel) 15-30 GRAMS 15 GRAMS... UD PRN PO 09/24/17 14:15 10/24/17 14:14 Glucose (Glucose Chew Tab) 4-8 Tablets 4 Tabl... UD PRN PO 09/24/17 14:15 10/24/17 14:14 Dextrose (Dextrose 50% 50ML Syringe) 25-50ML OF 50% DW IV FOR... UD PRN IV 09/24/17 14:15 10/24/17 14:14 Glucagon (Glucagon Inj) 1 mg UD PRN SQ 09/24/17 14:15 10/24/17 14:14 Miscellaneous Information (Consult Glycemic Management Pharmacy) 1 ea UD PRN N/A 09/24/17 14:35 10/24/17 14:34 Furosemide 40 mg/ Syringe 4 ml @ 4 mls/min Q12@0900,1700 IV 09/24/17 20:00 10/24/17 19:59 Future Hold 09/26/17 18:14 4 MLS/MIN Albuterol/ Ipratropium (Duoneb) 3 ml QIDR INH 09/24/17 16:00 10/24/17 15:59 09/28/17 11:09 3 ML Azithromycin (Zithromax Tab) 500 mg QAM PO 09/25/17 09:00 10/02/17 08:59 09/28/17 08:11 500 MG Hydralazine HCl (HydrALAZINE INJ) 10 mg Q8 PRN IV. 09/24/17 14:30 10/24/17 14:29 09/26/17 00:33 10 MG Isosorbide Mononitrate (Ismo Tab) 20 mg TID@0700,1400,2100 PO 09/24/17 21:00 10/24/17 20:59 Future Hold Potassium Chloride (Melissa Ciel Elix) 10 meq QAM PO 09/25/17 09:00 10/25/17 08:59 09/28/17 08:12 10 MEQ Insulin Aspart (novoLOG ASPART) SLIDING SCALE ACHS SC 09/24/17 16:30 10/24/17 16:29 09/28/17 08:16 3 UNITS Nitroglycerin (Nitroglycerin 2% Oint) 1 inch Q6H EXT 09/24/17 16:30 10/24/17 16:29 09/28/17 06:00 1 INCH Levothyroxine Sodium (Synthroid Tab) 75 mcg DAILYBB PO 09/26/17 06:30 10/25/17 06:59 09/28/17 06:00 75 MCG Amiodarone HCl (Cordarone Tab) 100 mg QAM PO 09/26/17 09:00 10/25/17 08:59 09/28/17 08:10 100 MG Insulin Glargine (Lantus Solostar Pen) SEE PROTOCOL TEXT HS SC 09/25/17 21:00 10/25/17 20:59 09/27/17 21:07 18 UNITS Hydralazine HCl (Apresoline Tab) 50 mg QID PO 09/27/17 13:00 10/24/17 20:59 09/28/17 08:10 50 MG Vital Signs: Date Time Temp Pulse Resp B/P (MAP) Pulse Ox O2 Delivery O2 Flow Rate FiO2 09/28/17 11:16 36.7 65 16 172/72 (105) 94 Nasal Cannula 2.0 09/28/17 11:10 62 18 96 Nasal Cannula 2.0 09/28/17 08:00 Room Air 09/28/17 07:38 65 18 95 Nasal Cannula 2.0 09/28/17 07:19 37.0 68 16 161/64 (96) 94 Nasal Cannula 2.0 09/28/17 04:00 Nasal Cannula 2.0 09/28/17 03:29 36.5 67 16 144/52 (82) 94 Nasal Cannula 2.0 09/28/17 00:00 Nasal Cannula 2.0 09/27/17 23:50 36.9 69 16 172/54 (93) 94 Nasal Cannula 2.0 09/27/17 20:00 Nasal Cannula 4.0 09/27/17 19:41 60 16 97 Nasal Cannula 2.0 09/27/17 19:34 36.6 65 22 167/62 (97) 91 Nasal Cannula 2.0 09/27/17 15:59 Nasal Cannula 4.0 09/27/17 15:50 58 16 97 Nasal Cannula 2.0 09/27/17 15:38 36.8 56 22 178/56 (96) 96 Nasal Cannula 2.0 09/27/17 13:05 56 144/63 (90) 09/27/17 12:00 Nasal Cannula 4.0 09/27/17 11:49 36.4 58 17 194/65 (108) 96 Nasal Cannula 4.0 09/27/17 11:42 57 16 94 Nasal Cannula 2.0 Laboratory Results: Last 24 Hours Test 09/27/17 11:54 09/27/17 15:20 09/27/17 16:28 09/27/17 20:22 Bedside Glucose 176 mg/dl 207 mg/dl 206 mg/dl Pleural Fluid Source RIGHT LUNG Pleural Fluid Color YELLOW Pleural Fluid Appearance HAZY Pleural Fluid WBC 368 /uL Pleural Fluid RBC < 3000 /uL Pleural Fluid Other Cells % Pleural Fluid pH 7.41 Pleural Fluid Polynuclear WBCs % 25.0 % Pleural Fluid Mononuclear WBCs % 75.0 % Pleural Fluid Total Protein 1.9 g/dl Pleural Fluid LDH 78 IU Pleural Fluid Glucose 207 mg/dl Test 09/28/17 06:10 09/28/17 07:34 White Blood Count 8.62 K/uL Red Blood Count 3.58 M/uL Hemoglobin 11.2 g/dL Hematocrit 34.5 % Mean Corpuscular Volume 96.4 fL Mean Corpuscular Hemoglobin 31.3 pg Mean Corpuscular Hemoglobin Concent 32.5 g/dl RDW Standard Deviation 54.0 fL RDW Coefficient of Variation 15.1 % Platelet Count 171 K/uL Mean Platelet Volume 10.4 fL Sodium Level 136 mmol/L Potassium Level 4.0 mmol/L Chloride Level 97 mmol/L Carbon Dioxide Level 31 mmol/L Anion Gap 8.0 mmol/L Blood Urea Nitrogen 48 mg/dl Creatinine 2.65 mg/dl Est Creatinine Clear Calc Drug Dose 12.9 ml/min Estimated GFR () 17.8 Estimated GFR (Non- 15.4 BUN/Creatinine Ratio 18.1 Random Glucose 111 mg/dl Calcium Level 8.1 mg/dl Magnesium Level 2.2 mg/dl Bedside Glucose 116 mg/dl
--- NOTE | 2017-09-28 18:20 | Progress Note ---
Internal Med Progress Note Date of Service: Sep 28, 2017. Provider Documentation: SUBJECTIVE: sitting up on chair , mentions that breathing is much better got tired today as she walked on hallway with PT , says knees hurt after walking no cough no fever or chills OBJECTIVE: Vital Signs-as noted below Exam: General-chronically ill appearing female , no sign of distress Eyes-sclera non icteric , PERRLA/EOMI ENT-moist oral mucosa , normal oropharynx Neck-no thyromegaly , trachea midline Lungs-diminished , rales on base Heart-regular , + 2 bilat lower ext edema , no JVD noted Abdomen-soft, non tender Extremities-+ 2 bilateral edema Neuro-AA0X3 no focal deficit Lab data as noted below. ASSESSMENT & PLAN: ACUTE ON CHRONIC DIASTOLIC CHF Present with SOB and elevated BNP on admission CXR on admission showed bilateral bibasilar parenchymal infiltrative change with underlying pleural effusions and/or consolidative change. Repeat CXR showed persistent moderate to large bilateral pleural effusions with associated bibasilar opacities U/S showed Moderate right and small left pleural effusions s/p thoracentesis on 09/27/[address] Chatterjee with drainage of approx 1200 ml of pleural effusion Lasix on hold due to elevated creatine Cardiology following Mild elevated troponin that trends down Continue monitor in telemetry ECHO done today showed * The left ventricle is normal in size. * There is severe concentric left ventricular hypertrophy. * The left ventricular wall motion is normal. * Ejection Fraction = 65-70%. * The left atrium is moderately dilated. * Aortic valve sclerosis moderate, without significant aortic valvular stenosis. * Calcified mitral apparatus causing mitral stenosis. * There is mild mitral stenosis. * There is mild to moderate mitral regurgitation. * There is moderate tricuspid regurgitation. HTN URGENCY Bp remains elevated on Nitropaste Q6hrs Continue metoprolol Hydralazine increased to 50mg qid Hydralazine IV prn >160 systolic continue monitor BP ACUTE HYPOXIC RESPIRATORY FAILURE Due to decompensated CHF /large pleural effusion CXR showed Persistent moderate to large bilateral pleural effusions with associated bibasilar opacities Blood cultures no growth Pulmonology on board Continue BIPAP intermittently and at night PLEURAL EFFUSION S/P right sided thoracentesis 1200 cc of clear yellow pleural fluid was removed. pt reports improved breathing post thoracentesis No complication Continue monitor HX PAROXYSMAL A-FIB Rate controlled on NSR Continue amiodarone and metoprolol CKD STAGE IV Cr approx baseline ~2 Lasix on hold due to elevated Cr monitor BMP DM II HgbA1c 8.9 on 09/25/17 Trebisa on hold NovoLog sliding scale Continue monitor BS HYPOTHYROIDISM TSH 18 Levothyroxine increased to 75mcg Repeat TSH in 4-6 weeks DYSLIPIDEMIA On atorvastatin DVT PROPHYLAXIS On heparin SQ DISPOSITION Continue monitor in telemetry Consultants: Cardio Pulmonology Vital Signs: Date Time Temp Pulse Resp B/P (MAP) Pulse Ox O2 Delivery O2 Flow Rate FiO2 09/28/17 20:00 Nasal Cannula 2.0 09/28/17 19:43 37.0 71 18 163/65 (97) 95 Nasal Cannula 2.0 09/28/17 17:10 68 191/65 (107) 09/28/17 16:00 Nasal Cannula 2.0 09/28/17 15:55 72 18 93 Nasal Cannula 2.0 09/28/17 15:23 37.0 66 16 158/71 (100) 94 Nasal Cannula 2.0 09/28/17 12:00 Nasal Cannula 2.0 09/28/17 11:16 36.7 65 16 172/72 (105) 94 Nasal Cannula 2.0 09/28/17 11:10 62 18 96 Nasal Cannula 2.0 09/28/17 08:00 Nasal Cannula 2.0 09/28/17 07:38 65 18 95 Nasal Cannula 2.0 09/28/17 07:19 37.0 68 16 161/64 (96) 94 Nasal Cannula 2.0 09/28/17 04:00 Nasal Cannula 2.0 09/28/17 03:29 36.5 67 16 144/52 (82) 94 Nasal Cannula 2.0 09/28/17 00:00 Nasal Cannula 2.0 09/27/17 23:50 36.9 69 16 172/54 (93) 94 Nasal Cannula 2.0 Lab Results: Results Past 24 Hours Test 09/28/17 06:10 09/28/17 07:34 09/28/17 11:28 09/28/17 16:13 Range/Units White Blood Count 8.62 4.8-10.8 K/uL Red Blood Count 3.58 4.2-5.4 M/uL Hemoglobin 11.2 12.0-16.0 g/dL Hematocrit 34.5 37-47 % Mean Corpuscular Volume 96.4 80-100 fL Mean Corpuscular Hemoglobin 31.3 25-34 pg Mean Corpuscular Hemoglobin Concent 32.5 32-36 g/dl RDW Standard Deviation 54.0 36.4-46.3 fL RDW Coefficient of Variation 15.1 11.5-14.5 % Platelet Count 171 130-400 K/uL Mean Platelet Volume 10.4 7.4-10.4 fL Sodium Level 136 136-145 mmol/L Potassium Level 4.0 3.5-5.1 mmol/L Chloride Level 97 98-107 mmol/L Carbon Dioxide Level 31 21-32 mmol/L Anion Gap 8.0 3-11 mmol/L Blood Urea Nitrogen 48 7-18 mg/dl Creatinine 2.65 0.60-1.20 mg/dl Est Creatinine Clear Calc Drug Dose 12.9 ml/min Estimated GFR () 17.8 Estimated GFR (Non- 15.4 BUN/Creatinine Ratio 18.1 10-20 Random Glucose 111 70-99 mg/dl Calcium Level 8.1 8.5-10.1 mg/dl Magnesium Level 2.2 1.8-2.4 mg/dl Bedside Glucose 116 159 170 70-90 mg/dl Test 09/28/17 20:03 Range/Units Bedside Glucose 281 70-90 mg/dl
[2017-09-28 18:23] LABS: ALBUMIN 2.6 G/DL (3.8-4.8); GAMMA GLOBULIN 0.6 G/DL (0.8-1.7); MONOCLONAL PROTEIN BAND 1 0.2 G/DL (NOT DETECTED); TOTAL PROTEIN 5.1 G/DL (6.2-8.3)
[2017-09-28] MEDS: ATORVASTATIN 40 MG TAB PO SCH (20:30)
[2017-09-28] MEDS: INSULIN GLARGINE SOLOSTAR 100 UNITS/ML 3 ML PEN SC SCH (20:38)
[2017-09-29] VITALS (9 sets, daily range): BP systolic 163–184; BP diastolic 50–76; PULSE 62–71; TEMP 36.3–37; O2SAT 2–97
[2017-09-29 05:57] LABS: BUN/CREATININE RATIO 19.7 (10-20); CALCIUM 8.1 mg/dl (8.5-10.1); CREATININE 2.5 mg/dl (0.60-1.20); MAGNESIUM 2.2 mg/dl (1.8-2.4); POTASSIUM 4.4 mmol/L (3.5-5.1)
[2017-09-29] MEDS: HEPARIN SOD 5000 UNIT/0.5 ML CARP SQ SCH ×3 (06:00→21:10)
[2017-09-29] MEDS: LEVOTHYROXINE 75 MCG TAB PO SCH (06:04)
[2017-09-29] MEDS: NITROGLYCERIN OINT 2% 1GM PACKET EXT SCH ×4 (06:07→23:37)
[2017-09-29] MEDS: FERROUS SULFATE 325 MG TAB PO SCH (07:50)
[2017-09-29] MEDS: AMIODARONE 200 MG TAB PO SCH (07:51)
[2017-09-29] MEDS: POTASSIUM CHLORIDE 20MEQ/15ML 473ML PO SCH (07:52)
[2017-09-29] MEDS: AZITHROMYCIN 250 MG TAB PO SCH (07:52)
[2017-09-29] MEDS ORDERED: ALBUT/IPRATROP 3MG/0.5MG NEB 3 ML VIAL INH PRN (08:00)
[2017-09-29] MEDS: INSULIN ASPART 100 UNITS/ML 3 ML PEN SC SCH ×4 (08:04→21:09)
--- NOTE | 2017-09-29 10:31 | Pharmacy Progress Note ---
Pharmacy Glycemic Short Note 2 Date of Service Sep 29, 2017. OUTPATIENT ANTIDIABETIC REGIMEN: * Tresiba 30 units HS + Novolog ASSESSMENT: * Ms Stone is an 89 y/o F with a PMH of Afib, CHF, breast CA, and CKD stage IV who is admitted with CHF and HTN urgency. During this hospitalization,Ms Stone has required around 40 units of insulin. Her blood sugars yesterday were 116-281 mg/dL. She received 36 units of insulin (18 units of Lantus and 18 units of Novolog). Her fasting today was 170 mg/dL which is increased compared to yesterday (116 mg/dl). Her post-prandial blood sugars continued to rise throughout the day. * Since the patient's fasting blood sugar was increased today, increased Lantus slightly to 20 units tonight. Continued same Novolog scale as this is tighter than weight-based stress of 3. Her blood sugars are also higher because her goal range is 140-180 mg/dL ... the patient likes to have blood sugars greater than 140 mg/dL. Would like to see her fasting blood sugar closer to 150 mg/dL to prevent further increasing above 200 mg/dL later in the day. PLAN FOR INPATIENT GLYCEMIC CONTROL: * Basal insulin * Lantus 20 units SQ in the evening * Bolus insulin * NovoLog per scale ACHS or Q6hrs while NPO * Goal Range: Low 140 mg/dL - High 180 mg/dL * Correction Factor: 20 mg/dL/unit * Nutritional / Prandial insulin per carb ratio of 1 unit per 7 grams CHO consumed PLAN FOR DISCHARGE: * please see note from 09/26/17
[2017-09-29] MEDS: IPRATROPIUM BROMIDE/ALBUTEROL respimat INH INH SCH ×3 (12:32→21:12)
[2017-09-29] MEDS ORDERED: FUROSEMIDE 40 MG TAB PO ONE (14:30)
--- NOTE | 2017-09-29 14:34 | PROGRESS NOTE ---
DATE: 09/29/2017 CARDIOLOGY CONSULTATION FOLLOWUP NOTE The patient seen and examined. Chart, medications, telemetry reviewed. SUBJECTIVE: The patient feels improved this morning. Notes no worsening shortness of breath. Weight has been stable. Notes no dizziness or lightheadedness. Blood pressures are trending slightly higher. Lower extremity edema is improved with use of support stockings. OBJECTIVE: VITAL SIGNS: Heart rate is 65, blood pressure is 178/72. NECK: Thin. There is no distinct jugular venous distention. LUNGS: Reveal diminished breath sounds at bases with better aeration of the apices. CARDIOVASCULAR: Regular. There is no S3 gallop. ABDOMEN: Soft, nontender. EXTREMITIES: Without clubbing with chronic 1-2+ edema though with support stockings in place, appears slightly less pronounced today. LABORATORY STUDIES: Sodium is 133, potassium is 4.4, chloride is 97, bicarbonate is 31, BUN is 49, creatinine is 2.5. IMPRESSION: Complex 89-year-old female with chronic diastolic heart failure, recurrent pleural effusion status post thoracentesis with improved clinical status. Renal function has declined since admission, but appears to have stabilized at this point in time. IV diuretics have been held since the . PLAN: Will be to resume oral diuretic with furosemide 40 mg p.o. daily, follow renal function closely. Will resume isosorbide previously held for hypertension and afterload reduction. Gradually increase activity level. MTDD
[2017-09-29] MEDS: ISOSORBIDE MONONITRATE 20 MG TAB PO SCH ×2 (15:24→21:40)
--- NOTE | 2017-09-29 18:12 | Progress Note ---
Internal Med Progress Note Date of Service: Sep 29, 2017. Provider Documentation: SUBJECTIVE: feeling better today minimum SOB , no complain of orthopnea , no WOLFE still requiring supplemental 02 was not on home 02 , will need 2 step exercise prior to discharge OBJECTIVE: Vital Signs-as noted below Exam: General-chronically ill appearing female , no sign of distress Eyes-sclera non icteric , PERRLA/EOMI ENT-moist oral mucosa , normal oropharynx Neck-no thyromegaly , trachea midline Lungs-diminished , rales on base Heart-regular , + 1 bilat lower ext edema ( improved since admission ) , no JVD noted Abdomen-soft, non tender Extremities-+ 1 bilateral edema Neuro-AA0X3 no focal deficit Lab data as noted below. ASSESSMENT & PLAN: ACUTE ON CHRONIC DIASTOLIC CHF improved after IV diuresis ; S/p Thoracentesis for large pleural effusion Present with SOB and elevated BNP on admission CXR on admission showed bilateral bibasilar parenchymal infiltrative change with underlying pleural effusions and/or consolidative change. Repeat CXR showed persistent moderate to large bilateral pleural effusions with associated bibasilar opacities U/S showed Moderate right and small left pleural effusions s/p thoracentesis on 09/27/[address] Chatterjee with drainage of approx 1200 ml of pleural effusion Lasix was on hold due to elevated creatine Cardiology following Lasix resumed 40 mg p.o. daily, resumed Isosorbide cont to monitor daily wt , intake out put increase activity as tolerated , Gray D/alexus ECHO * The left ventricle is normal in size. * There is severe concentric left ventricular hypertrophy. * The left ventricular wall motion is normal. * Ejection Fraction = 65-70%. * The left atrium is moderately dilated. * Aortic valve sclerosis moderate, without significant aortic valvular stenosis. * Calcified mitral apparatus causing mitral stenosis. * There is mild mitral stenosis. * There is mild to moderate mitral regurgitation. * There is moderate tricuspid regurgitation. HTN URGENCY Bp improved , resumed Isordil on Nitropaste Q6hrs Continue metoprolol Hydralazine increased to 50mg qid Hydralazine IV prn >160 systolic Cardiology following ACUTE HYPOXIC RESPIRATORY FAILURE improved after diuresis and thoracentesis Due to decompensated CHF /large pleural effusion s/p thoracentesis on 09/27/17 with drainage of approx 1200 ml of pleural effusion Pulmonology on board Continue BIPAP intermittently and at night will need 2 step exercise prior to be discharged home ( was not on home o2 ) HX PAROXYSMAL A-FIB Rate controlled on NSR Continue amiodarone and metoprolol CKD STAGE IV Cr approx baseline ~2 monitor BMP DM II HgbA1c 8.9 on 09/25/17 Trebisa on hold NovoLog sliding scale Continue monitor BS HYPOTHYROIDISM TSH 18 Levothyroxine increased to 75mcg Repeat TSH in 4-6 weeks DYSLIPIDEMIA On atorvastatin DVT PROPHYLAXIS On heparin SQ DISPOSITION pt wants to return home , refused SNF will benefit with home health visiting nurse Medicine follow up with Dr Dominguez Cardiology consult with Dr Farias pt's Sons present at bedside -updated Consultants: Cardio Pulmonology Vital Signs: Date Time Temp Pulse Resp B/P (MAP) Pulse Ox O2 Delivery O2 Flow Rate FiO2 09/29/17 20:18 36.3 64 18 180/67 (104) 96 Nasal Cannula 2.0 09/29/17 20:00 Nasal Cannula 2.0 09/29/17 15:44 36.3 62 18 163/71 (101) 96 Nasal Cannula 2.0 09/29/17 15:37 97 Nasal Cannula 2.0 09/29/17 12:20 Nasal Cannula 2.0 09/29/17 11:38 36.8 65 16 178/72 (107) 96 2.0 09/29/17 07:20 97 Nasal Cannula 2.0 09/29/17 07:19 63 18 2 Nasal Cannula 09/29/17 07:09 36.9 66 16 184/50 (94) 97 2.0 09/29/17 04:11 37.0 68 18 167/60 (95) 94 2.0 09/29/17 04:00 Nasal Cannula 2.0 09/29/17 00:00 Nasal Cannula 2.0 09/28/17 23:28 37.4 75 20 150/61 (90) 93 Nasal Cannula 2.0 Lab Results: Results Past 24 Hours Test 09/29/17 05:20 09/29/17 07:25 09/29/17 11:31 09/29/17 16:10 Range/Units Sodium Level 133 136-145 mmol/L Potassium Level 4.4 3.5-5.1 mmol/L Chloride Level 97 98-107 mmol/L Carbon Dioxide Level 31 21-32 mmol/L Anion Gap 5.0 3-11 mmol/L Blood Urea Nitrogen 49 7-18 mg/dl Creatinine 2.50 0.60-1.20 mg/dl Est Creatinine Clear Calc Drug Dose 13.7 ml/min Estimated GFR () 19.1 Estimated GFR (Non- 16.5 BUN/Creatinine Ratio 19.7 10-20 Random Glucose 183 70-99 mg/dl Calcium Level 8.1 8.5-10.1 mg/dl Magnesium Level 2.2 1.8-2.4 mg/dl Bedside Glucose 170 249 200 70-90 mg/dl Test 09/29/17 20:13 Range/Units Bedside Glucose 260 70-90 mg/dl
[2017-09-29] MEDS: INSULIN GLARGINE SOLOSTAR 100 UNITS/ML 3 ML PEN SC SCH (21:10)
[2017-09-29] MEDS: ATORVASTATIN 40 MG TAB PO SCH (21:12)
[2017-09-30] VITALS (11 sets, daily range): BP systolic 139–184; BP diastolic 51–74; PULSE 61–77; TEMP 36.4–36.9; O2SAT 94–96
[2017-09-30] MEDS ORDERED: NURSING VERBAL MED ORDER ONE (01:45)
[2017-09-30] MEDS: HEPARIN SOD 5000 UNIT/0.5 ML CARP SQ SCH ×4 (06:00→21:32)
[2017-09-30] MEDS: LEVOTHYROXINE 75 MCG TAB PO SCH (06:01)
[2017-09-30 06:10] LABS: MEAN CELL VOLUME 96.6 fL (80-100); MEAN CORPUSCULAR HEMOGLOBIN 32.1 pg (25-34); MEAN CORPUSCULAR HGB CONC 33.2 g/dl (32-36); MEAN PLATELET VOLUME 9.9 fL (7.4-10.4); PLATELET COUNT 171 K/uL (130-400); RED BLOOD COUNT 3.21 M/uL (4.2-5.4); WHITE BLOOD COUNT 7.06 K/uL (4.8-10.8)
[2017-09-30 06:40] LABS: BUN/CREATININE RATIO 21.4 (10-20); CALCIUM 8.1 mg/dl (8.5-10.1); CREATININE 2.38 mg/dl (0.60-1.20); MAGNESIUM 2.2 mg/dl (1.8-2.4)
[2017-09-30] MEDS: IPRATROPIUM BROMIDE/ALBUTEROL respimat INH INH SCH ×4 (07:20→21:34)
[2017-09-30] MEDS: ISOSORBIDE MONONITRATE 20 MG TAB PO SCH ×3 (07:20→21:38)
[2017-09-30] MEDS: AMIODARONE 200 MG TAB PO SCH (07:21)
[2017-09-30] MEDS: POTASSIUM CHLORIDE 20MEQ/15ML 473ML PO SCH (07:21)
[2017-09-30] MEDS: FERROUS SULFATE 325 MG TAB PO SCH (07:21)
[2017-09-30] MEDS: AZITHROMYCIN 250 MG TAB PO SCH (07:22)
[2017-09-30] MEDS: INSULIN ASPART 100 UNITS/ML 3 ML PEN SC SCH ×4 (08:44→21:51)
[2017-09-30] MEDS: FUROSEMIDE 40 MG TAB PO SCH (09:52)
[2017-09-30] MEDS ORDERED: INSULIN ASPART 100 UNITS/ML 3 ML PEN SC SCH (11:00)
--- NOTE | 2017-09-30 12:58 | PROGRESS NOTE ---
DATE: 09/30/2017 CARDIOLOGY CONSULTATION FOLLOWUP NOTE The patient seen and examined. Chart, medications, telemetry reviewed. SUBJECTIVE: The patient feels somewhat better today. Still has occasional wheezy cough. Notes chronic lower extremity edema, though no abrupt change. Blood pressures have been somewhat variable but trending towards better control. OBJECTIVE: VITAL SIGNS: Heart rate 64; blood pressure was 158/63 this morning 183/62 on second testing. I's and O's are flat. Weight is stable at 64.5 kilos. NECK: Thin. There is no jugular venous distention. LUNGS: Reveal scattered wheezes with forced cough. CARDIOVASCULAR: Regular. There is no S3 gallop. ABDOMEN: Soft. EXTREMITIES: Reveal 2+ lower extremity edema. LABORATORY DATA: White cell count is 7.0, hemoglobin is 10.3, platelet count is 171,000. Sodium is 135, potassium is 4.0, chloride is 98, bicarb is 32, BUN is 51, and creatinine is 2.38. IMPRESSION AND PLAN: An 89-year-old female with mixed respiratory failure with combination of chronic diastolic heart failure, hypothyroidism with pleural effusions and lower extremity edema and chronic renal insufficiency superimposed on chronic obstructive lung disease. The patient appears to be making gradual strides, resumed diuretic with improved renal function. Would recommend continued support stockings, oxygen supplementation and current anti-hypertension regimen with notably noted addition of increased dose of hydralazine and resumption of prior isordil MTDD
[2017-09-30] MEDS ORDERED: LSX40 PO (18:29)
[2017-09-30] MEDS ORDERED: APR50 PO (18:29)
[2017-09-30] MEDS ORDERED: SYN75 PO (18:29)
[2017-09-30] MEDS ORDERED: CRD200 PO (18:29)
--- NOTE | 2017-09-30 18:29 | Discharge Instructions ---
Discharge Instructions Date of Service Sep 30, 2017. Admission Reason for Admission: Shortness Of Breath Discharge Discharge Diagnosis / Problem: ACUTE CHF DIASTOLIC HEART FAILURE /RESPIRATORY FAILURE /PLEURAL EFFUSION Discharge Goals Goal(s): Decrease discomfort, Increase independence, Improve disease control, Diagnostic testing, Therapeutic intervention Activity Recommendations Activity Limitations: as noted below ( TOLERATED ) . Instructions / Follow-Up Instructions / Follow-Up HOSPITAL FOLLOW UP : 10/07/2017 9:00 AM Adam Dominguez DO General Internal Medicine [facility] LAB WORK : BASIC METABOLIC PANEL on Wednesday10/04/17 CARDIOLOGY FOLLOW UP : 10/13/2017 2:00 PM Clementina Leahy PA-C Cardiology , [facility] YOU WILL NEED OXYGEN 2 L AT HOME -FOR HEART FAILURE AND SHORTNESS OF BREATH PLEASE CONTINUE TO USE OXYGEN DIRECTED NEW MEDICATIONS /MEDICATION CHANGE : HYDRALAZINE 75 MG THREE TIMES DAILY -FOR BLOOD PRESSURE AMIODARONE 100 MG DAILY ( DOSE REDUCED , WAS ON 200 MG DAILY ) LEVOTHYROXINE 75 MCG DAILY IN MORNING BEFORE BREAKFAST ( DOSE INCREASED , WAS ON 50 MCG DAILY ) LASIX 40 MG DAILY TSH LEVEL ON 10/05/17 -ELEVATED 18.2 LEVOTHYROXINE DOSE INCREASED TO 75 MCG DAILY REPEAT TSH LEVEL IN 3 MONTHS Call your Primary Care doctor if any of the following symptoms or problems start or get worse: * Shortness of breath or difficulty breathing * Wake up at night short of breath * Chest pain * Cough * Swelling of your hands, feet, or legs * More fatigued or tired with your normal activity * Palpitations - sudden fast heart beats WEIGHT * Weigh yourself every morning after using the bathroom. * Use the same scale. * Wear the same amount of clothing. * Write your weight down on a chart. * Call your Primary Care doctor if you gain more than 2-3 pounds in 1-2 days. MEDICATIONS * Use this discharge instruction sheet for medication instructions. * Take your medications at the time your doctor ordered. * Do not skip a dose of your medicines. * If you miss a dose of medicine, take it as soon as possible, but DO NOT DOUBLE A DOSE. * Read your medicine information when you get home. * Know all of the side effects of your medicine. If in doubt, ask your pharmacist * Call your Primary Care doctor's office if you have any side effects. * Be sure all of your doctors know what medicine and herbs you take (including cold, flu, and herbal medicine). Take the following with you to your follow-up doctor appointments: * Weight Chart * Medication List * List of questions Do not drink excessive alcohol, beer or wine. Current Hospital Diet Patient's current hospital diet: AHA Diet (Heart Healthy), Diabetes Type 2 Diet Discharge Diet Recommended Diet: AHA Diet (Heart Healthy), Diabetes Type 2 Diet Pending Studies Studies pending at discharge: no Laboratory Results Hemoglobin A1c Test 09/25/17 04:14 Range/Units Estimated Average Glucose 209 mg/dl Hemoglobin A1c 8.9 H 4.5-5.6 % Medical Emergencies . Who to Call and When: Call 911 or go to the Emergency Room if: * If at any time you feel your situation is an emergency * You have tightness or pain in your chest that does not go away with rest or Nitroglycerin * You are very short of breath even with rest . Non-Emergent Contact Non-Emergency issues call your: Primary Care Provider . . "Provider Documentation" section prepared by Analia Brown. . VTE Core Measure Inpt VTE Proph given/why not?: Unfractionated heparin SQ
--- NOTE | 2017-09-30 18:31 | Progress Note ---
Internal Med Progress Note Date of Service: Sep 30, 2017. Provider Documentation: SUBJECTIVE: breathing much better improved lower ext edema Not happy with the prospect of possibly requiring home 02 pt is counselled given her CHF , recurrent plural effusion , supplemental 02 will make significant change in her breathing 2 step exercise ordered for tomorrow OBJECTIVE: Vital Signs-as noted below Exam: General-chronically ill appearing female , no sign of distress Eyes-sclera non icteric , PERRLA/EOMI ENT-moist oral mucosa , normal oropharynx Neck-no thyromegaly , trachea midline Lungs-diminished , rales on base Heart-regular , + 1 bilat lower ext edema ( improved since admission ) , no JVD noted Abdomen-soft, non tender Extremities-+ 1 bilateral edema Neuro-AA0X3 no focal deficit Lab data as noted below. ASSESSMENT & PLAN: ACUTE ON CHRONIC DIASTOLIC CHF improved after IV diuresis ; S/p Thoracentesis for large pleural effusion Present with SOB and elevated BNP on admission CXR on admission showed bilateral bibasilar parenchymal infiltrative change with underlying pleural effusions and/or consolidative change. Repeat CXR showed persistent moderate to large bilateral pleural effusions with associated bibasilar opacities U/S showed Moderate right and small left pleural effusions s/p thoracentesis on 09/27/[address] Chatterjee with drainage of approx 1200 ml of pleural effusion Cardiology following on Lasix r 40 mg p.o. daily, resumed Isosorbide 20 mg TID ECHO * The left ventricle is normal in size. * There is severe concentric left ventricular hypertrophy. * The left ventricular wall motion is normal. * Ejection Fraction = 65-70%. * The left atrium is moderately dilated. * Aortic valve sclerosis moderate, without significant aortic valvular stenosis. * Calcified mitral apparatus causing mitral stenosis. * There is mild mitral stenosis. * There is mild to moderate mitral regurgitation. * There is moderate tricuspid regurgitation. pt still requiring supplemental 02 2 step exercise ordered for tomorrow HTN URGENCY , resumed Isordil 20 mg TID ; D/c Nitro paste Continue metoprolol Hydralazine increased to 50mg qid Cardiology following ACUTE HYPOXIC RESPIRATORY FAILURE improved after diuresis and thoracentesis Due to decompensated CHF /large pleural effusion s/p thoracentesis on 09/27/17 with drainage of approx 1200 ml of pleural effusion Pulmonology on board Continue BIPAP intermittently and at night 2 step exercise tomorrow prior to be discharged home ( was not on home o2 ) HX PAROXYSMAL A-FIB Rate controlled on NSR Continue amiodarone and metoprolol CKD STAGE IV Cr approx baseline ~2 monitor BMP DM II HgbA1c 8.9 on 09/25/17 Trebisa on hold NovoLog sliding scale Continue monitor BS HYPOTHYROIDISM TSH 18 Levothyroxine increased to 75mcg Repeat TSH in 4-6 weeks DYSLIPIDEMIA On atorvastatin DVT PROPHYLAXIS On heparin SQ DISPOSITION pt wants to return home , refused SNF possible discharge home tomorrow with home health Medicine follow up with Dr Dominguez Cardiology consult with Dr Farias Consultants: Cardio Pulmonology Vital Signs: Date Time Temp Pulse Resp B/P (MAP) Pulse Ox O2 Delivery O2 Flow Rate FiO2 10/01/17 16:00 Nasal Cannula 2.0 10/01/17 14:48 36.5 71 18 159/62 (94) 95 Nasal Cannula 2.0 10/01/17 14:23 36.8 68 20 90 Nasal Cannula 10/01/17 12:30 Nasal Cannula 2.0 10/01/17 11:48 36.8 68 20 178/70 (106) 90 Room Air 10/01/17 07:45 Nasal Cannula 2.0 10/01/17 07:36 36.8 84 18 173/65 (101) 93 Nasal Cannula 2.0 10/01/17 04:00 36.6 73 18 155/68 (97) 95 Nasal Cannula 2.0 10/01/17 04:00 Nasal Cannula 2.0 10/01/17 00:00 Nasal Cannula 2.0 09/30/17 23:53 36.4 69 18 161/53 (89) 94 Nasal Cannula 2.0 09/30/17 21:37 68 184/74 (110) 09/30/17 20:00 Nasal Cannula 2.0 09/30/17 19:51 36.4 62 18 171/65 (100) 96 Nasal Cannula 2.0 Lab Results: Results Past 24 Hours Test 09/30/17 20:08 10/01/17 05:23 10/01/17 07:10 10/01/17 11:29 Range/Units Bedside Glucose 141 83 108 70-90 mg/dl Sodium Level 134 136-145 mmol/L Potassium Level 3.9 3.5-5.1 mmol/L Chloride Level 96 98-107 mmol/L Carbon Dioxide Level 33 21-32 mmol/L Anion Gap 5.0 3-11 mmol/L Blood Urea Nitrogen 48 7-18 mg/dl Creatinine 2.26 0.60-1.20 mg/dl Est Creatinine Clear Calc Drug Dose 15.2 ml/min Estimated GFR () 21.6 Estimated GFR (Non- 18.6 BUN/Creatinine Ratio 21.1 10-20 Random Glucose 69 70-99 mg/dl Calcium Level 8.0 8.5-10.1 mg/dl Magnesium Level 2.1 1.8-2.4 mg/dl
[2017-09-30] MEDS: ATORVASTATIN 40 MG TAB PO SCH (21:37)
[2017-09-30] MEDS: INSULIN GLARGINE SOLOSTAR 100 UNITS/ML 3 ML PEN SC SCH (21:51)
[2017-10-01 04:00] VITALS: BP 155/68; PULSE 73; TEMP 36.6; O2SAT 95
[2017-10-01] MEDS: ISOSORBIDE MONONITRATE 20 MG TAB PO SCH ×2 (06:13→13:05)
[2017-10-01] MEDS: LEVOTHYROXINE 75 MCG TAB PO SCH (06:13)
[2017-10-01] MEDS: HEPARIN SOD 5000 UNIT/0.5 ML CARP SQ SCH ×2 (06:17→13:11)
[2017-10-01 06:19] LABS: BUN/CREATININE RATIO 21.1 (10-20); CREATININE 2.26 mg/dl (0.60-1.20); MAGNESIUM 2.1 mg/dl (1.8-2.4); POTASSIUM 3.9 mmol/L (3.5-5.1)
[2017-10-01 07:36] VITALS: BP 173/65; PULSE 84; TEMP 36.8; O2SAT 93
[2017-10-01] MEDS: FERROUS SULFATE 325 MG TAB PO SCH (08:55)
[2017-10-01] MEDS: FUROSEMIDE 40 MG TAB PO SCH (08:55)
[2017-10-01] MEDS: IPRATROPIUM BROMIDE/ALBUTEROL respimat INH INH SCH ×3 (08:55→17:00)
[2017-10-01] MEDS: AMIODARONE 200 MG TAB PO SCH (08:55)
[2017-10-01] MEDS: POTASSIUM CHLORIDE 20MEQ/15ML 473ML PO SCH (08:56)
[2017-10-01] MEDS: INSULIN ASPART 100 UNITS/ML 3 ML PEN SC SCH ×3 (09:02→17:08)
[2017-10-01 09:08] VITALS: Ht 165.1 cm; Wt 63.6 kg
[2017-10-01 11:48] VITALS: BP 178/70; PULSE 68; TEMP 36.8; O2SAT 90
--- NOTE | 2017-10-01 12:05 | CARDIOLOGY PROGRESS NOTE ---
DATE: 10/01/2017 DATE: 10/01/2017 The patient seen and examined. Chart, medications, telemetry reviewed. SUBJECTIVE: The patient once again demonstrates improvement this morning. Denies any chest pains, worsening shortness of breath. Lower extremity edema has been stable with the patient wearing support stockings today. OBJECTIVE: VITAL SIGNS: Heart rate is 84, blood pressure is 173/65. NECK: Thin. There is no distinct jugular venous distention. LUNGS: Reveal diminished breath sounds with few scattered wheezes with forced cough. CARDIOVASCULAR: Regular with a grade 2/6 systolic murmur. There is no S3 gallop. ABDOMEN: Soft. EXTREMITIES: Reveal 1-2+ lower extremity edema. IMPRESSION: An 89-year-old female admitted with mixed respiratory failure, multifactorial with diastolic heart failure, hypothyroidism, large pleural effusion demonstrating ongoing clinical improvement since adjustments of medical therapy. Would continue current medications, though will make hydralazine 75 mg 3 times per day to simplify administration. Would continue isosorbide 20 mg 3 times per day, though there is further from to increase for hypertension control. Continue amiodarone at reduced dose 100 mg per day. MEDICATION CHANGE OF NOTE: Levothyroxine was increased to 75 mg per day and metoprolol was discontinued.
[2017-10-01] MEDS ORDERED: APR50 PO (14:12)
[2017-10-01 14:23] VITALS: BP 178/70; PULSE 68; TEMP 36.8; O2SAT 90
[2017-10-01 14:48] VITALS: BP 159/62; PULSE 71; TEMP 36.5; O2SAT 95
--- NOTE | 2017-10-01 18:34 | Discharge Summary ---
Discharge Summary Date of Service Oct 01, 2017. Discharge Summary Admission Date: Sep 24, 2017 at 13:52 Discharge Date: Oct 01, 2017 Discharge Disposition: Home with services Principal Diagnosis: ACUTE CHF DIASTOLIC HEART FAILURE /RESPIRATORY FAILURE /PLEURAL EFFUSION Procedures: THORACENTESIS: s/p thoracentesis on 09/27/[address] Chatterjee with drainage of approx 1200 ml of pleural effusion CHEST ULTRASOUND : FINDINGS: Moderate right-sided pleural effusion demonstrates a volume of 1381 mL. Right side was marked for thoracentesis. Small left pleural effusion demonstrates a volume of 303 mL. Atelectatic lung is noted within the bilateral lung bases. IMPRESSION: Moderate right and small left pleural effusions as above. The right side was marked for thoracentesis. ECHO * The left ventricle is normal in size. * There is severe concentric left ventricular hypertrophy. * The left ventricular wall motion is normal. * Ejection Fraction = 65-70%. * The left atrium is moderately dilated. * Aortic valve sclerosis moderate, without significant aortic valvular stenosis. * Calcified mitral apparatus causing mitral stenosis. * There is mild mitral stenosis. * There is mild to moderate mitral regurgitation. * There is moderate tricuspid regurgitation. Consultations: Cardio Pulmonology Medication Reconciliation New Medications: Amiodarone HCl (Amiodarone HCl) 200 Mg Tab 100 MG PO QAM for 30 Days, #15 TAB 2 Refills Furosemide (Furosemide) 40 Mg Tab 40 MG PO QAM for 30 Days, #30 TAB 3 Refills Hydralazine HCl (Hydralazine HCl) 50 Mg Tab 75 MG PO TID for 30 Days, #135 TAB 2 Refills Levothyroxine Sodium (Synthroid) 75 Mcg Tab 75 MCG PO DAILYBB for 30 Days, #30 TAB 2 Refills Continued Medications: Atorvastatin (Lipitor) 40 Mg Tab 40 MG PO HS, TAB Ferrous Sulfate (Ferrous Sulfate) 325 Mg Tab 1 TAB PO QAM Insulin Aspart (Novolog) 100 Units/Ml Inj 1 DOSE SC BID PER SLIDING SCALE. Insulin Degludec (Tresiba Flextouch) 100 Unit/Ml Inj 30 UNITS SC HS Isosorbide Mononitrate (Isosorbide Mononitrate) 20 Mg Tab 1 TAB PO TID Potassium Chloride (Potassium Chloride) 10 % Liq 7.5 ML PO DAILY Discontinued Medications: Amiodarone Hcl (Cordarone) 200 Mg Tab 200 MG PO QAM, TAB Furosemide (Lasix) 40 Mg Tab 40 MG PO 5XWK, TAB EVERY DAY EXCEPT TUES AND SAT Furosemide (Lasix) 40 Mg Tab 60 MG PO 2XWK, TAB TUES AND SAT Hydralazine Hcl (Apresoline) 50 Mg Tab 50 MG PO TID, TAB Levothyroxine Sodium (Levothyroxine Sodium) 50 Mcg Tab 1 TAB PO QAM, TAB Metoprolol Succinate (Toprol Xl) 25 Mg Tabcr 12.5 MG PO QAM, TAB Referrals At Discharge Follow up Referrals: Rig Superintendent Referral - 10/13/17 with Clementina Leahy PA-C Physician Referral - 10/07/17 with Adam Dominguez D.O. Admission Information HPI (per Admitting provider): Pt is 89 y/o F with PMH HTN, Hyperlipidemia, chronic diastolic HF, paroxysmal a- fib,DM II insulin dependent, hx breast CA, CKD stage IV presented to ER from PCP office for hypoxia. Pt reports feels SOB when bends over to tie her shoes, but denies SOB at rest or with exertion. Uses walker to ambulate. She reports hasn't felt any more SOB recently. Does report 5lb weight gain over past 1 week and has noticed increased edema bilateral LE and feels that her abdomen looks more distended than usual. She wears OSMIN hose during day. Reports LE edema decreased in morning and increases throughout the day. She does not use O2 at home. Reports her appetite is good. Did not take am meds today and didn't eat today. Hx incomplete bladder emptying and denies any changes with this. Denies hematuria, dysuria, urinary frequency. Reports chronic black stools from taking iron. Denies any hematochezia. Denies fever/chills, diaphoresis, N/V/D/C, MACKENZIE, dizziness, syncope, vision changes, neck pain, CP, orthopnea, PND, palpitations , cough, hemoptysis, sore throat, choking, otalgia, rhinorrhea, abdominal pain, paresthesias, weakness, rashes. Hx hospitalization 06/17/17 -06/28/17 for rectal bleeding with diverticulitis. During hospitalization had R thoracentesis with cytology of pleural fluid showing single lobe of atypical cells. 1L pleural fluid removed. Hx CT Chest on 09/15/17 - 1. Airspace opacification w/i RML, LLL, atelectasis vs infiltrate. 2. Moderate R and small L pleural effusions. 3. Subacute appearing fractures of L 9th-12th ribs at costovertebral junction. Hx colonoscopy 08/11/17 3 large polyps, was on cipro & flagyl Hx renal artery u/s 05/25/17: elevated intrarenal resistive indices suggest medical renal disease Rig Superintendent - Dr Farias Oncologist - Dr Conrad Today in ER pt 85% on RA, BP: 213/71, P: 68, R: 20, afebrile. Pt placed on 4L 02 with sats 94%. No leukocytosis, K: 3.4, BNP: 10,776. Cr: 2.09 (~baseline). CXR: Bilateral bibasilar parenchymal infiltrative change with underlying pleural effusions and/or consolidative change. Pt given Rocephin, Zithromax, hydralazine. Physical Exam (per Admitting): General Appearance: WD/WN, no apparent distress Head: normocephalic, atraumatic Eyes: normal inspection, PERRL, EOMI, sclerae normal ENT: hearing grossly normal, pharynx normal, + pertinent finding (mucous membranes moist) Neck: supple, no JVD, trachea midline Respiratory/Chest: chest non-tender, no respiratory distress, no accessory muscle use, + rales (bases bilaterally) Cardiovascular: regular rate, rhythm, + systolic murmur Abdomen/GI: normal bowel sounds, non tender, soft Extremities/Musculoskelatal: no calf tenderness, normal capillary refill, non-tender, + pedal edema (3+ bilateral lower extremities) Neurologic/Psych: alert, normal mood/affect, oriented x 3 Skin: normal color, warm/dry, + pertinent finding (few erythematous papules anterior shins bilaterally) Hospital Course feels well , no complain of orthopnea , WOLFE or SOB 2 step exercise done this AM pt requires home 02 2 L via [place] arrangements made for home 02 delivery pt is disappointment with home 02 requirement counselling provided, supplement 02 may decrease cardiac work load and help to prevent recurrent CHF evaluated by Cardiology earlier stable to be discharged home today P/E: General-chronically ill appearing female , no sign of distress ; upset with the prospect of needing home 02 Eyes-sclera non icteric , PERRLA/EOMI ENT-moist oral mucosa , normal oropharynx Neck-no thyromegaly , trachea midline Lungs-diminished , rales on base Heart-regular , + 1 bilat lower ext edema ( improved since admission ) , no JVD noted Abdomen-soft, non tender Extremities-+ 1 bilateral edema [id number] no focal deficit ASSESSMENT AND PLAN ACUTE ON CHRONIC DIASTOLIC CHF compensated improved after diuresis ; S/p Thoracentesis for large pleural effusion Present with SOB and elevated BNP CXR on admission showed bilateral bibasilar parenchymal infiltrative change with underlying pleural effusions and/or consolidative change. Repeat CXR showed persistent moderate to large bilateral pleural effusions with associated bibasilar opacities ECHO * The left ventricle is normal in size. * There is severe concentric left ventricular hypertrophy. * The left ventricular wall motion is normal. * Ejection Fraction = 65-70%. * The left atrium is moderately dilated. * Aortic valve sclerosis moderate, without significant aortic valvular stenosis. * Calcified mitral apparatus causing mitral stenosis. * There is mild mitral stenosis. * There is mild to moderate mitral regurgitation. * There is moderate tricuspid regurgitation. U/S of chest : Moderate right and small left pleural effusions s/p thoracentesis on 09/27/[address] Chatterjee with drainage of approx 1200 ml of pleural effusion Cardiology following -appreciate input Lasix dose adjusted 40 mg p.o. daily, resumed Isosorbide 20 mg TID 2 step exercise exercise shows -pt will need home 02 social service updated ,portable 02 delivered to pt prior to discharge [facility] will deliver 02 concentrator to pt's home HTN URGENCY BP improved after adjusting meds pt will be discharged on Isordil 20 mg TID /Hydralazine increased to 75 mg TID Metoprolol D/alexus Cardiology following ACUTE HYPOXIC RESPIRATORY FAILURE Due to decompensated CHF /large pleural effusion improved after diuresis and thoracentesis s/p thoracentesis on 09/27/17 with drainage of approx 1200 ml of pleural effusion Pulmonology on board 2 step exercise recommends home 02 pt is reluctant to have continued 02 at home counselling provided , arrangements made for home 02 HX PAROXYSMAL A-FIB normal sinus rhythm episode of bradycardia noted Amiodarone dose reduced to 100 mg daily Metoprolol D/alexus CKD STAGE IV Cr approx baseline ~2 repeat BMP next week arrangements made for home health visiting nurse lab script given DM II HgbA1c 8.9 on 09/25/17 Trebisa resumed on discharge NovoLog sliding scale PROFOUND HYPOTHYROIDISM TSH 18 Levothyroxine increased to 75mcg Repeat TSH in 4-6 weeks DYSLIPIDEMIA On atorvastatin DVT PROPHYLAXIS On heparin SQ DISPOSITION discharge home today with home health Medicine follow up with Dr Dominguez Cardiology consult with Dr Farias Consultants: Cardio Pulmonology Total time spent on discharge = 50 mins This includes examination of the patient, discharge planning, medication reconciliation, and communication with other providers. Discharge Instructions Discharge Instructions Date of Service Sep 30, 2017. Admission Reason for Admission: Shortness Of Breath Discharge Discharge Diagnosis / Problem: ACUTE CHF DIASTOLIC HEART FAILURE /RESPIRATORY FAILURE /PLEURAL EFFUSION Discharge Goals Goal(s): Decrease discomfort, Increase independence, Improve disease control, Diagnostic testing, Therapeutic intervention Activity Recommendations Activity Limitations: as noted below ( TOLERATED ) . Instructions / Follow-Up Instructions / Follow-Up HOSPITAL FOLLOW UP : 10/07/2017 9:00 AM Adam Dominguez DO General Internal Medicine [facility] LAB WORK : BASIC METABOLIC PANEL on Wednesday10/04/17 CARDIOLOGY FOLLOW UP : 10/13/2017 2:00 PM Clementina Leahy PA-C Cardiology , [facility] YOU WILL NEED OXYGEN 2 L AT HOME -FOR HEART FAILURE AND SHORTNESS OF BREATH PLEASE CONTINUE TO USE OXYGEN DIRECTED NEW MEDICATIONS /MEDICATION CHANGE : HYDRALAZINE 75 MG THREE TIMES DAILY -FOR BLOOD PRESSURE AMIODARONE 100 MG DAILY ( DOSE REDUCED , WAS ON 200 MG DAILY ) LEVOTHYROXINE 75 MCG DAILY IN MORNING BEFORE BREAKFAST ( DOSE INCREASED , WAS ON 50 MCG DAILY ) LASIX 40 MG DAILY TSH LEVEL ON 10/05/17 -ELEVATED 18.2 LEVOTHYROXINE DOSE INCREASED TO 75 MCG DAILY REPEAT TSH LEVEL IN 3 MONTHS Call your Primary Care doctor if any of the following symptoms or problems start or get worse: * Shortness of breath or difficulty breathing * Wake up at night short of breath * Chest pain * Cough * Swelling of your hands, feet, or legs * More fatigued or tired with your normal activity * Palpitations - sudden fast heart beats WEIGHT * Weigh yourself every morning after using the bathroom. * Use the same scale. * Wear the same amount of clothing. * Write your weight down on a chart. * Call your Primary Care doctor if you gain more than 2-3 pounds in 1-2 days. MEDICATIONS * Use this discharge instruction sheet for medication instructions. * Take your medications at the time your doctor ordered. * Do not skip a dose of your medicines. * If you miss a dose of medicine, take it as soon as possible, but DO NOT DOUBLE A DOSE. * Read your medicine information when you get home. * Know all of the side effects of your medicine. If in doubt, ask your pharmacist * Call your Primary Care doctor's office if you have any side effects. * Be sure all of your doctors know what medicine and herbs you take (including cold, flu, and herbal medicine). Take the following with you to your follow-up doctor appointments: * Weight Chart * Medication List * List of questions Do not drink excessive alcohol, beer or wine. Current Hospital Diet Patient's current hospital diet: AHA Diet (Heart Healthy), Diabetes Type 2 Diet Discharge Diet Recommended Diet: AHA Diet (Heart Healthy), Diabetes Type 2 Diet Pending Studies Studies pending at discharge: no Laboratory Results Hemoglobin A1c Test 09/25/17 04:14 Range/Units Estimated Average Glucose 209 mg/dl Hemoglobin A1c 8.9 H 4.5-5.6 % Medical Emergencies . Who to Call and When: Call 911 or go to the Emergency Room if: * If at any time you feel your situation is an emergency * You have tightness or pain in your chest that does not go away with rest or Nitroglycerin * You are very short of breath even with rest . Non-Emergent Contact Non-Emergency issues call your: Primary Care Provider . . "Provider Documentation" section prepared by Analia Brown. . VTE Core Measure Inpt VTE Proph given/why not?: Unfractionated heparin SQ Additional Copies To Adam Dominguez D.O. [place], Clementina Julian PA-C
[2017-10-01] MEDS ORDERED: INSULIN GLARGINE SOLOSTAR 100 UNITS/ML 3 ML PEN SC SCH (21:00)
== END 2017-10-01 19:25 | disposition home health service (06) | DRG 291 ==
LOC: C.EDB 10:54 → C.MED 13:52 → ENRESERV 14:22
PROVIDERS: ADMIT Hospitalist; ATTEND Hospitalist
DX: I13.0 Hypertensive heart and chronic kidney disease with heart failure and stage 1 through stage 4 chronic kidney disease, or unspecified chronic kidney disease (principal); J18.9 Pneumonia, unspecified organism; I50.33 Acute on chronic diastolic (congestive) heart failure; N18.4 Chronic kidney disease, stage 4 (severe); J96.21 Acute and chronic respiratory failure with hypoxia; I45.2 Bifascicular block; E11.21 Type 2 diabetes mellitus with diabetic nephropathy; E78.5 Hyperlipidemia, unspecified; Z85.820 Personal history of malignant melanoma of skin; Z86.73 Personal history of transient ischemic attack (TIA), and cerebral infarction without residual deficits; Z79.84 Long term (current) use of oral hypoglycemic drugs; I48.0 Paroxysmal atrial fibrillation; Z79.4 Long term (current) use of insulin; I16.0 Hypertensive urgency; Z85.3 Personal history of malignant neoplasm of breast; E87.6 Hypokalemia; E03.9 Hypothyroidism, unspecified; Z85.51 Personal history of malignant neoplasm of bladder; Z80.0 Family history of malignant neoplasm of digestive organs; E88.09 Other disorders of plasma-protein metabolism, not elsewhere classified